=== PATIENT | male | born 1930 | race American Indian/Alaskan Native ===

== ENCOUNTER 2016-11-08 18:29 | Inpatient (IN) | payer MEDICARE, OTHER ==
--- NOTE | 2016-11-08 19:24 | ED PDOC ---
Arrival/HPI - History of Present Illness Time/Duration: 1-3 hours Symptom Onset: Sudden Symptom Course: Improving Context: Walking <Ana Cano - Last Filed: 11/08/16 21:57> <Rachel Encarnacion - Last Filed: 11/08/16 22:08> - General Chief Complaint: Weakness/Neurological Deficit Time Seen by Provider: 11/08/16 19:01 - History of Present Illness Narrative History of Present Illness (Text): 11/08/16 19:20 86 year old male with past medical history of CHF, COPD, CRF, HLD, HTN, CAd s/p CABG presents for weakness that began a few hours ago. Patient states that he was walking to get water at home when he suddenly felt his lower extremities become weak. He states that prior to coming in he felt SOB. He denies having any CP, F/C, lightheadedness, BOLANOS, recent illnesses, recent travels. Patient lives at home with his grandson and is able to ambulate without difficulty normally. Pt does complain of dysuria. (Ana Cano) Past Medical History - Provider Review Nursing Documentation Reviewed: Yes - Travel History Have you recently traveled outside [place] w/in the past 3 mons?: No - Cardiac Hx Cardiac Disorders: Yes Hx Congestive Heart Failure: Yes Hx Hypertension: Yes - Pulmonary Hx Respiratory Disorders: Yes Hx Chronic Obstructive Pulmonary Disease (COPD): Yes - Neurological Hx Neurological Disorder: Yes Hx Dementia: Yes (daughter states mild,forgetful) - HEENT Hx HEENT Disorder: No - Renal Hx Renal Disorder: Yes - Endocrine/Metabolic Hx Endocrine Disorders: No - Hematological/Oncological Hx Blood Disorders: Yes Hx Anemia: Yes Hx Blood Transfusions: Yes - Integumentary Hx Dermatological Disorder: No - Musculoskeletal/Rheumatological Hx Musculoskeletal Disorders: Yes Hx Falls: Yes - Gastrointestinal Hx Gastrointestinal Disorders: Yes Hx Gastritis: Yes - Genitourinary/Gynecological Hx Genitourinary Disorders: No - Psychiatric Hx Psychophysiologic Disorder: No Hx Substance Use: No - Surgical History Hx Coronary Artery Bypass Graft: Yes Hx Coronary Stent: Yes - Anesthesia Hx Anesthesia: Yes Hx Anesthesia Reactions: No Hx Malignant Hyperthermia: No - Suicidal Assessment Feels Threatened In Home Enviroment: No <Ana Cano - Last Filed: 11/08/16 21:57> Family/Social History - Physician Review Nursing Documentation Reviewed: Yes Family/Social History: Unknown Family HX Smoking Status: Light Smoker < 10 Cigarettes Daily Hx Alcohol Use: No Hx Substance Use: No <Ana Cano - Last Filed: 11/08/16 21:57> Allergies/Home Meds <Ana Cano - Last Filed: 11/08/16 21:57> <Rachel Encarnacion - Last Filed: 11/08/16 22:08> Allergies/Adverse Reactions: Allergies No Known Allergies Allergy (Verified 11/08/16 18:45) Home Medications: Home Meds Medication Instructions Recorded Confirmed Aspirin [Aspirin Chewable] 1 tab PO DAILY 11/08/16 11/08/16 Furosemide [Lasix] 1 tab PO DAILY 11/08/16 11/08/16 Gabapentin [Neurontin] 1 cap PO BID 11/08/16 11/08/16 Lisinopril [Zestril] 1 tab PO DAILY 11/08/16 11/08/16 Metoprolol Succinate [Toprol XL] 1 tab PO DAILY 11/08/16 11/08/16 Pantoprazole Sodium [Protonix] 1 tab PO DAILY 11/08/16 11/08/16 Sennosides/Docusate Sodium [Senna 1 tab PO BID 11/08/16 11/08/16 S Tablet] Simvastatin [Zocor] 1 tab PO HS 11/08/16 11/08/16 Review of Systems - Review of Systems Constitutional: Normal. absent: Fatigue, Fevers Eyes: Normal. absent: Vision Changes, Photophobia ENT: Normal. absent: Hearing Changes, Rhinorrhea, Sinus Congestion Respiratory: SOB. absent: Cough, Sputum, Wheezing Cardiovascular: Normal. absent: Chest Pain, Palpitations, Edema, Calf Pain, Syncope Gastrointestinal: Normal. absent: Abdominal Pain, Constipation, Diarrhea, Nausea, Vomiting, Hematochezia, Hematemesis Genitourinary Male: Dysuria. absent: Frequency, Hematuria, Urinary Output Changes Musculoskeletal: Other (lower extremity weakness ). absent: Arthralgias, Back Pain, Neck Pain Skin: Normal. absent: Rash, Pruritis, Skin Lesions, Laceration Neurological: Normal. absent: Headache, Dizziness, Focal Weakness, Gait Changes , Speech Changes, Facial Droop Endocrine: Normal. absent: Diaphoresis, Polyuria, Polydipsia Hemo/Lymphatic: Normal. absent: Adenopathy, Easy Bleeding Psychiatric: Normal. absent: Anxiety, Depression <Ana Cano - Last Filed: 11/08/16 21:57> Physical Exam Vital Signs Reviewed: Yes Temperature: Afebrile Blood Pressure: Hypertensive Pulse: Regular Respiratory Rate: Normal Appearance: Positive for: Well-Appearing, Non-Toxic, Comfortable Pain Distress: None Mental Status: Positive for: Alert and Oriented X 3 - Systems Exam Head: Present: Atraumatic, Normocephalic Pupils: Present: PERRL Extroacular Muscles: Present: EOMI Conjunctiva: Present: Normal Mouth: Present: Moist Mucous Membranes Neck: Present: Normal Range of Motion. No: MIDLINE TENDERNESS Respiratory/Chest: Present: Clear to Auscultation, Good Air Exchange, Decreased Breath Sounds. No: Respiratory Distress, Accessory Muscle Use, Wheezes, Rales, Rhonchi Cardiovascular: Present: Regular Rate and Rhythm, Normal S1, S2. No: Murmurs, Gallop Abdomen: Present: Normal Bowel Sounds. No: Tenderness, Distention, Peritoneal Signs, Rebound, Guarding Lower Extremity: Present: Normal Inspection, Edema (1+ B/L), NORMAL PULSES. No : CALF TENDERNESS, Tiffanie's Sign, Tenderness Neurological: Present: GCS=15, CN II-XII Intact, Speech Normal, Motor Func Grossly Intact, Normal Sensory Function, Memory Normal Skin: Present: Warm, Dry, Normal Color. No: Rashes Psychiatric: Present: Alert, Oriented x 3, Normal Insight, Normal Concentration <Ana Cano - Last Filed: 11/08/16 21:57> Medical Decision Making - Lab Interpretations I have reviewed the lab results: Yes - EKG Interpretation Interpreted by ED Physician: Yes Type: 12 lead EKG <Ana Cano - Last Filed: 11/08/16 21:57> <Rachel Encarnacion - Last Filed: 11/08/16 22:08> ED Course and Treatment: 11/08/16 19:37 86 year old male presents for LE weakness Will check: CBC, CMP, cardiac iso, UA, urine culture, lipase, Mg, Phos, EKG, CXR Patient is noted to have elevated blood pressure. Patient will be given hydralazine 10 mg IVP 11/08/16 21:24 Patient is noted to have elevated proBNP. Will gary Dr. Rivas to admit pt for CHF exacerbation. 11/08/16 21:[address] Rivas who accepts patient under her service. Recommends consulting pulm, Dr. Vail and cardio, Dr. Jacobson. (RachaelAna) 11/08/16 22:07 Patient with noted history; seen with resident; treatment and plan discussed and came up with it together. Based on results, agree with admission for CHF exacerbation. (Rachle Encarnacion) - Lab Interpretations Narrative Lab Interpretation (Text): 11/08/16 21:24 [place] [address] and Troponin is .09 (Ana Cano) Lab Results: 11/08/16 19:40 11/08/16 19:40 Lab Results 11/08/16 20:58: pO2 40, VBG pH 7.27 L, VBG pCO2 62.0 H, VBG HCO3 28.5 H, VBG Total CO2 30.4 H, VBG O2 Sat (Calc) 74.4 H, VBG Base Excess 0.5, VBG Potassium 3.9, Glucose 99, Lactate 1.1, FiO2 21.0, Sodium 143.0, Chloride 108.0 H, Venous Blood Potassium 3.9 11/08/16 20:58: Urine Color Yellow, Urine Appearance Clear, Urine pH 6.0, Ur Specific [place] 1.015, Urine Protein 100 H, Urine Glucose (UA) Negative, Urine Ketones Negative, Urine Blood Trace-lysed H, Urine Nitrate Negative, Urine Bilirubin Negative, Urine Urobilinogen 1.0 H, Ur Leukocyte Esterase Negative, Urine RBC 0 - 2, Urine WBC 0 - 2, Ur Epithelial Cells 0 - 2, Urine Bacteria Trace 11/08/16 19:48: Blood Type O POSITIVE, Antibody Screen Negative, BBK History Checked Patient has bt 11/08/16 19:40: NT-Pro-B Natriuret Pep 75836 H 11/08/16 19:40: Sodium 145, Potassium 4.2, Chloride 107, Carbon Dioxide 27, Anion Gap 15, BUN 44 H, Creatinine 2.5 H, Est GFR ( Amer) 30, Est GFR ( Non-Af Amer) 24, Random Glucose 103, Calcium 10.0, Phosphorus 3.6, Magnesium 2.3 H, Total Bilirubin 0.8, AST 36, ALT 40, Alkaline Phosphatase 159 H, Lactate Dehydrogenase 696, Total Creatine Kinase 205, Troponin I 0.09, Total Protein 8.3 , Albumin 4.4, Globulin 3.9, Albumin/Globulin Ratio 1.1, Lipase 172 11/08/16 19:40: WBC 4.5, RBC 3.94, Hgb 10.7 L, Hct 34.5 L, MCV 87.6, MCH 27.2, MCHC 31.0, RDW 20.3 H, Plt Count 151, MPV 10.6 - RAD Interpretation Radiology Orders: 11/08/16 19:18 CHEST PORTABLE [RAD] Stat - EKG Interpretation EKG Interpretation (Text): 11/08/16 20:58 NSR HR of 80, right bundle branch block. diffuse T wave inversions noted similar to EKG in past. (Ana Cano) - Medication Orders Current Medication Orders: Discontinued Medications Furosemide (Lasix) 40 mg IVP STAT STA Stop: 11/08/16 20:42 Last Admin: 11/08/16 21:31 Dose: 40 mg Hydralazine HCl (Apresoline) 10 mg IVP ONCE ONE Stop: 11/08/16 19:41 Last Admin: 11/08/16 20:28 Dose: 10 mg - PA / SAT INSTRUCTOR / Resident Statement / has reviewed & agrees with the documentation as recorded. / has examined the patient and agrees with the treatment plan. <Rachel Encarnacion - Last Filed: 11/08/16 22:08> Disposition/Present on Arrival - Present on Arrival Any Indicators Present on Arrival: No History of DVT/PE: No History of Uncontrolled Diabetes: No Urinary Catheter: No History of Decub. Ulcer: No History Surgical Site Infection Following: None - Disposition Have Diagnosis and Disposition been Completed?: Yes Disposition Time: 21:58 Patient Plan: Admission <Ana Cano - Last Filed: 11/08/16 21:57> <Rachel Encarnacion - Last Filed: 11/08/16 22:08> - Disposition Diagnosis: CHF (congestive heart failure), SOB (shortness of breath) Disposition: HOSPITALIZED Condition: STABLE Discharge Instructions (ExitCare): Heart Failure (ED) [facility] - Follow up with primary Forms: [employer] (Welsh)
[2016-11-08 20:04] LABS: HEMATOCRIT 34.5 % (42.0-52.0); MEAN CELL VOLUME 87.6 fl (80.0-105.0); MEAN CORPUSCULAR HEMOGLOBIN 27.2 pg (25.0-35.0); MEAN PLATELET VOLUME 10.6 fl (7.0-11.0); RED CELL DISTRIBUTION WIDTH 20.3 % (11.5-14.5); WHITE BLOOD COUNT 4.5 10^3/ul (4.5-11.0)
[2016-11-08 20:15] LABS: ALB/GLOB RATIO 1.1 (1.1-1.8); BILIRUBIN,TOTAL 0.8 mg/dL (0.2-1.3); MAGNESIUM 2.3 mg/dL (1.7-2.2); PHOSPHOROUS 3.6 mg/dL (2.5-4.5); POTASSIUM 4.2 mmol/L (3.6-5.0); TOTAL PROTEIN 8.3 g/dL (5.8-8.3)
[2016-11-08 20:23] LABS: TROPONIN I 0.09 ng/mL
[2016-11-08 21:16] LABS: VENOUS BLOOD GAS BASE EXCESS 0.5 mmol/L (0.0-2.0); VENOUS BLOOD PH 7.27 (7.32-7.43)
[2016-11-08 21:23] LABS: URINE BILIRUBIN NEGATIVE (NEGATIVE); URINE BLOOD TRACE-LYSED (NEGATIVE); URINE GLUCOSE (UA) NEGATIVE (NEGATIVE); URINE KETONE NEGATIVE (NEGATIVE); URINE LEUKOCYTE ESTERASE NEGATIVE Leu/uL (NEGATIVE); URINE PROTEIN 100 mg/dL (<30 mg/dL)
[2016-11-08 21:26] LABS: URINE APPEARANCE CLEAR (CLEAR); URINE COLOR YELLOW (YELLOW)
[2016-11-08 21:50] LABS: URINE BACTERIA TRACE (NEG); URINE EPITHELIAL CELLS 0 - 2 /hpf (0-5); URINE RBC 0 - 2 /hpf (0-2); URINE WBC 0 - 2 /hpf (0-6)
[2016-11-08 22:16] LABS: ARTERIAL BLOOD GAS HCO3 24.8 mmol/L (21-28); ARTERIAL BLOOD GAS O2 CAPACITY 14.2 mL/dl (16-24); ARTERIAL BLOOD GAS O2 CONTENT 13.7 ML/dl (15-23); ARTERIAL BLOOD GAS PH 7.39 (7.35-7.45); ARTERIAL BLOOD HGB O2 SAT 92.4 % (95.0-98.0); CARBOXYHEMOGLOBIN 3.2 % (0.5-1.5); HHB 3.4 % (0-5)
[2016-11-09 00:16] VITALS: BMI 27.8
[2016-11-09] MEDS ORDERED: Nitroglycerin 2% Ointment Foilpak UD TOP ONE (01:19)
[2016-11-09] MEDS ORDERED: Nitroglycerin 2% Ointment Foilpak UD TOP STA (01:22)
--- NOTE | 2016-11-09 01:43 | CP.PCM.PN ---
Subjective - Date & Time of Evaluation Date of Evaluation: 11/09/16 Time of Evaluation: 01:35 - Subjective Subjective: Responded to RAPID RESPONSE call promptly. Patient was confused and was hypoxic. BP 187/96,HR 74/min,RR 24/min, T:97.6*F. FSBS- 121 mg %. Pulse ox 83% on BiPAP with setting 15/5/28%. Which went upto 98% . Patient complains of sob, denies chest pain.When I asked questions about orientation, just stared and did not answer any questions. This 86 year old male was admitted weakness, sob, dysuria. Has PMH of CHF, HTN, HLD COPD, CRF,S/P CABG. Objective - Vital Signs/Intake and Output Vital Signs (last 24 hours): Temp Pulse Resp BP Pulse Ox 97.7 F 60 20 187/96 H 98 11/09/16 00:01 11/09/16 00:01 11/09/16 00:01 11/09/16 01:27 11/09/16 00:01 - Medications Medications: Home Medications Medication Instructions Recorded Confirmed Type Aspirin [Aspirin Chewable] 1 tab PO DAILY 11/08/16 11/08/16 History Furosemide [Lasix] 1 tab PO DAILY 11/08/16 11/08/16 History Gabapentin [Neurontin] 1 cap PO BID 11/08/16 11/08/16 History Lisinopril [Zestril] 1 tab PO DAILY 11/08/16 11/08/16 History Metoprolol Succinate [Toprol XL] 1 tab PO DAILY 11/08/16 11/08/16 History Pantoprazole Sodium [Protonix] 1 tab PO DAILY 11/08/16 11/08/16 History Sennosides/Docusate Sodium [Senna 1 tab PO BID 11/08/16 11/08/16 History S Tablet] Simvastatin [Zocor] 1 tab PO HS 11/08/16 11/08/16 History Vital Signs 11/08/16 11/08/16 11/08/16 18:45 19:01 19:47 Temperature 97.9 F Pulse Rate 79 91 H Pulse Rate [ Bilateral * Pedal & Posterior Tibial] Pulse Rate [ Bilateral Radial] Respiratory 17 18 20 Rate Blood Pressure 200/105 H 184/90 H 173/99 H O2 Sat by Pulse 94 L 89 L 95 Oximetry 08/23/17 08/23/17 08/23/17 20:17 20:28 21:17 Temperature Pulse Rate Pulse Rate [ Bilateral * Pedal & Posterior Tibial] Pulse Rate [ Bilateral Radial] Respiratory Rate Blood Pressure 165/104 H 165/104 H 181/86 H O2 Sat by Pulse Oximetry 11/08/16 11/08/16 11/08/16 21:31 21:41 22:53 Temperature Pulse Rate 72 62 Pulse Rate [ Bilateral * Pedal & Posterior Tibial] Pulse Rate [ Bilateral Radial] Respiratory 20 15 Rate Blood Pressure 181/96 H 168/67 H 159/79 H O2 Sat by Pulse 97 97 Oximetry 11/08/16 11/08/16 11/09/16 23:34 23:41 00:01 Temperature 97.7 F 97.7 F Pulse Rate 62 60 60 Pulse Rate [ 54 L Bilateral * Pedal & Posterior Tibial] Pulse Rate [ 54 L Bilateral Radial] Respiratory 20 20 Rate Blood Pressure 194/102 H 194/102 H O2 Sat by Pulse 98 Oximetry 11/09/16 01:27 Temperature Pulse Rate Pulse Rate [ Bilateral * Pedal & Posterior Tibial] Pulse Rate [ Bilateral Radial] Respiratory Rate Blood Pressure 187/96 H O2 Sat by Pulse Oximetry Patient Orders Lab Studies 11/08/16 11/08/16 11/08/16 Range/Units 22:13 20:58 20:58 WBC (4.5-11.0) 10^3/ul RBC (3.5-6.1) 10^6/uL Hgb (14.0-18.0) g/dL Hct (42.0-52.0) % MCV (80.0-105.0) fl MCH (25.0-35.0) pg MCHC (31.0-37.0) g/dl RDW (11.5-14.5) % Plt Count (120.0-450.0) 10^3/uL MPV (7.0-11.0) fl pCO2 41 (35-45) mm/Hg pO2 69.0 L 40 (30-55) mm/Hg HCO3 24.8 (21-28) mmol/L ABG pH 7.39 (7.35-7.45) ABG Total CO2 26.1 (22-28) mmol.L ABG O2 Saturation 96.5 (95-98) % ABG O2 Content 13.7 L (15-23) ML/dl ABG Base Excess -0.2 (-2.0-3.0) mmol/L ABG Hemoglobin 10.5 L (11.7-17.4) g/dL ABG Carboxyhemoglobin 3.2 H (0.5-1.5) % POC ABG HHb (Measured) 3.4 (0-5) % ABG Methemoglobin 1.0 (0.0-3.0) % ABG O2 Capacity 14.2 L (16-24) mL/dl VBG pH 7.27 L (7.32-7.43) VBG pCO2 62.0 H (40-60) VBG HCO3 28.5 H (21-28) mmol/l VBG Total CO2 30.4 H (22-28) mmol.L VBG O2 Sat (Calc) 74.4 H (40-65) % VBG Base Excess 0.5 (0.0-2.0) mmol/L VBG Potassium 3.9 (3.6-5.2) mmol/L Hgb O2 Saturation 92.4 L (95.0-98.0) % Glucose 99 (75-110) mg/dl Lactate 1.1 (0.7-2.1) mmol/L FiO2 28.0 21.0 % Sodium 143.0 (132-148) mmol/L Potassium (3.6-5.0) mmol/L Chloride 108.0 H (98-107) mmol/L Carbon Dioxide (21-33) mmol/L Anion Gap (10-20) BUN (7-21) mg/dL Creatinine (0.5-1.4) mg/dL Est GFR ( Amer) Est GFR (Non-Af Amer) Random Glucose (70-110) mg/dL Calcium (8.4-10.5) mg/dL Phosphorus (2.5-4.5) mg/dL Magnesium (1.7-2.2) mg/dL Total Bilirubin (0.2-1.3) mg/dL AST (15-59) U/L ALT (7-56) U/L Alkaline Phosphatase (38-133) U/L Lactate Dehydrogenase (333-699) U/L Total Creatine Kinase (35-230) U/L Troponin I ng/mL NT-Pro-B Natriuret Pep (0-450) pg/mL Total Protein (5.8-8.3) g/dL Albumin (3.0-4.8) g/dL Globulin gm/dL Albumin/Globulin Ratio (1.1-1.8) Lipase (23-300) U/L Venous Blood Potassium 3.9 (3.6-5.2) mmol/L Urine Color Yellow (YELLOW) Urine Appearance Clear (CLEAR) Urine pH 6.0 (4.7-8.0) Ur Specific [place] 1.015 (1.005-1.035) Urine Protein 100 H (<30 mg/dL) mg/dL Urine Glucose (UA) Negative (NEGATIVE) mg/dL Urine Ketones Negative (NEGATIVE) mg/dL Urine Blood Trace-lysed H (NEGATIVE) Urine Nitrate Negative (NEGATIVE) Urine Bilirubin Negative (NEGATIVE) Urine Urobilinogen 1.0 H (<1 E.U./dL) E.U./dL Ur Leukocyte Esterase Negative (NEGATIVE) [place]/uL Urine RBC 0 - 2 (0-2) /hpf Urine WBC 0 - 2 (0-6) /hpf Ur Epithelial Cells 0 - 2 (0-5) /hpf Urine Bacteria Trace (NEG) Blood Type Antibody Screen BBK History Checked 11/08/16 11/08/16 11/08/16 Range/Units 19:48 19:40 19:40 WBC (4.5-11.0) 10^3/ul RBC (3.5-6.1) 10^6/uL Hgb (14.0-18.0) g/dL Hct (42.0-52.0) % MCV (80.0-105.0) fl MCH (25.0-35.0) pg MCHC (31.0-37.0) g/dl RDW (11.5-14.5) % Plt Count (120.0-450.0) 10^3/uL MPV (7.0-11.0) fl pCO2 (35-45) mm/Hg pO2 (30-55) mm/Hg HCO3 (21-28) mmol/L ABG pH (7.35-7.45) ABG Total CO2 (22-28) mmol.L ABG O2 Saturation (95-98) % ABG O2 Content (15-23) ML/dl ABG Base Excess (-2.0-3.0) mmol/L ABG Hemoglobin (11.7-17.4) g/dL ABG Carboxyhemoglobin (0.5-1.5) % POC ABG HHb (Measured) (0-5) % ABG Methemoglobin (0.0-3.0) % ABG O2 Capacity (16-24) mL/dl VBG pH (7.32-7.43) VBG pCO2 (40-60) VBG HCO3 (21-28) mmol/l VBG Total CO2 (22-28) mmol.L VBG O2 Sat (Calc) (40-65) % VBG Base Excess (0.0-2.0) mmol/L VBG Potassium (3.6-5.2) mmol/L Hgb O2 Saturation (95.0-98.0) % Glucose (75-110) mg/dl Lactate (0.7-2.1) mmol/L FiO2 % Sodium 145 (132-148) mmol/L Potassium 4.2 (3.6-5.0) mmol/L Chloride 107 (98-107) mmol/L Carbon Dioxide 27 (21-33) mmol/L Anion Gap 15 (10-20) BUN 44 H (7-21) mg/dL Creatinine 2.5 H (0.5-1.4) mg/dL Est GFR ( Amer) 30 Est GFR (Non-Af Amer) 24 Random Glucose 103 (70-110) mg/dL Calcium 10.0 (8.4-10.5) mg/dL Phosphorus 3.6 (2.5-4.5) mg/dL Magnesium 2.3 H (1.7-2.2) mg/dL Total Bilirubin 0.8 (0.2-1.3) mg/dL AST 36 (15-59) U/L ALT 40 (7-56) U/L Alkaline Phosphatase 159 H (38-133) U/L Lactate Dehydrogenase 696 (333-699) U/L Total Creatine Kinase 205 (35-230) U/L Troponin I 0.09 ng/mL NT-Pro-B Natriuret Pep 78320 H (0-450) pg/mL Total Protein 8.3 (5.8-8.3) g/dL Albumin 4.4 (3.0-4.8) g/dL Globulin 3.9 gm/dL Albumin/Globulin Ratio 1.1 (1.1-1.8) Lipase 172 (23-300) U/L Venous Blood Potassium (3.6-5.2) mmol/L Urine Color (YELLOW) Urine Appearance (CLEAR) Urine pH (4.7-8.0) Ur Specific [place] (1.005-1.035) Urine Protein (<30 mg/dL) mg/dL Urine Glucose (UA) (NEGATIVE) mg/dL Urine Ketones (NEGATIVE) mg/dL Urine Blood (NEGATIVE) Urine Nitrate (NEGATIVE) Urine Bilirubin (NEGATIVE) Urine Urobilinogen (<1 E.U./dL) E.U./dL Ur Leukocyte Esterase (NEGATIVE) [place]/uL Urine RBC (0-2) /hpf Urine WBC (0-6) /hpf Ur Epithelial Cells (0-5) /hpf Urine Bacteria (NEG) Blood Type O POSITIVE Antibody Screen Negative BBK History Checked Patient has bt 11/08/16 Range/Units 19:40 WBC 4.5 (4.5-11.0) 10^3/ul RBC 3.94 (3.5-6.1) 10^6/uL Hgb 10.7 L (14.0-18.0) g/dL Hct 34.5 L (42.0-52.0) % MCV 87.6 (80.0-105.0) fl MCH 27.2 (25.0-35.0) pg MCHC 31.0 (31.0-37.0) g/dl RDW 20.3 H (11.5-14.5) % Plt Count 151 (120.0-450.0) 10^3/uL MPV 10.6 (7.0-11.0) fl pCO2 (35-45) mm/Hg pO2 (30-55) mm/Hg HCO3 (21-28) mmol/L ABG pH (7.35-7.45) ABG Total CO2 (22-28) mmol.L ABG O2 Saturation (95-98) % ABG O2 Content (15-23) ML/dl ABG Base Excess (-2.0-3.0) mmol/L ABG Hemoglobin (11.7-17.4) g/dL ABG Carboxyhemoglobin (0.5-1.5) % POC ABG HHb (Measured) (0-5) % ABG Methemoglobin (0.0-3.0) % ABG O2 Capacity (16-24) mL/dl VBG pH (7.32-7.43) VBG pCO2 (40-60) VBG HCO3 (21-28) mmol/l VBG Total CO2 (22-28) mmol.L VBG O2 Sat (Calc) (40-65) % VBG Base Excess (0.0-2.0) mmol/L VBG Potassium (3.6-5.2) mmol/L Hgb O2 Saturation (95.0-98.0) % Glucose (75-110) mg/dl Lactate (0.7-2.1) mmol/L FiO2 % Sodium (132-148) mmol/L Potassium (3.6-5.0) mmol/L Chloride (98-107) mmol/L Carbon Dioxide (21-33) mmol/L Anion Gap (10-20) BUN (7-21) mg/dL Creatinine (0.5-1.4) mg/dL Est GFR ( Amer) Est GFR (Non-Af Amer) Random Glucose (70-110) mg/dL Calcium (8.4-10.5) mg/dL Phosphorus (2.5-4.5) mg/dL Magnesium (1.7-2.2) mg/dL Total Bilirubin (0.2-1.3) mg/dL AST (15-59) U/L ALT (7-56) U/L Alkaline Phosphatase (38-133) U/L Lactate Dehydrogenase (333-699) U/L Total Creatine Kinase (35-230) U/L Troponin I ng/mL NT-Pro-B Natriuret Pep (0-450) pg/mL Total Protein (5.8-8.3) g/dL Albumin (3.0-4.8) g/dL Globulin gm/dL Albumin/Globulin Ratio (1.1-1.8) Lipase (23-300) U/L Venous Blood Potassium (3.6-5.2) mmol/L Urine Color (YELLOW) Urine Appearance (CLEAR) Urine pH (4.7-8.0) Ur Specific [place] (1.005-1.035) Urine Protein (<30 mg/dL) mg/dL Urine Glucose (UA) (NEGATIVE) mg/dL Urine Ketones (NEGATIVE) mg/dL Urine Blood (NEGATIVE) Urine Nitrate (NEGATIVE) Urine Bilirubin (NEGATIVE) Urine Urobilinogen (<1 E.U./dL) E.U./dL Ur Leukocyte Esterase (NEGATIVE) [place]/uL Urine RBC (0-2) /hpf Urine WBC (0-6) /hpf Ur Epithelial Cells (0-5) /hpf Urine Bacteria (NEG) Blood Type Antibody Screen BBK History Checked - Constitutional Appears: Well, No Acute Distress - Head Exam Head Exam: ATRAUMATIC, NORMAL INSPECTION, NORMOCEPHALIC - Eye Exam Eye Exam: Normal appearance - ENT Exam ENT Exam: Normal External Ear Exam - Neck Exam Neck Exam: Normal Inspection - Respiratory Exam Respiratory Exam: Rales (B/L basal.) - Cardiovascular Exam Cardiovascular Exam: REGULAR RHYTHM. absent: JVD - GI/Abdominal Exam GI & Abdominal Exam: absent: Distended - Rectal Exam Rectal Exam: Deferred - Exam Additional comments: Deferred. - Extremities Exam Extremities Exam: Normal Inspection - Back Exam Back Exam: NORMAL INSPECTION - Neurological Exam Neurological Exam: Alert, Awake - Psychiatric Exam Psychiatric exam: Normal Affect - Skin Skin Exam: Normal Color Assessment and Plan - Assessment and Plan (Free Text) Assessment: Confusion 2* to hypoxia. Tachypnea. Elevated blood pressure reading. CHF. CAD. HTN. HLD. S/P AICD. Plan: Nitro paste 1 " to ACW stat. Lasix 40 mg IV stat. EKG Stat.---> NSR, 1* block, RBBB, LAFB , New flipped t waves in V4,V5. Troponin stat.--->0.11 Observation. Allegedly as per daughter patient has mild dementia.Nurse will endorse in AM to check with if she wants to start any meds. Continue present management. Will order EKG and troponin in AM , as tropnin now is up.
--- NOTE | 2016-11-09 07:49 | RAD ---
HISTORY: weakness COMPARISON: No prior. FINDINGS: LUNGS: Questionable opacity at medial right base. This may be artifact due to oblique positioning of the patient. Follow-up advised. PLEURA: Small left pleural effusion. No evidence of right pleural effusion. CARDIOVASCULAR: CABG. AICD. No congestive change. OSSEOUS STRUCTURES: No significant abnormalities. VISUALIZED UPPER ABDOMEN: Normal. OTHER FINDINGS: None. IMPRESSION: Questionable opacity medial right lung base. Followup advised. Small left pleural effusion.
[2016-11-09] MEDS: Docusate-Senna 50 mg-8.6 mg Tab PO SCH ×2 (15:19→18:00)
[2016-11-09] MEDS: Pantoprazole 40 mg EC Tab PO SCH (15:20)
--- NOTE | 2016-11-09 15:27 | CT ---
PROCEDURE: CT HEAD WITHOUT CONTRAST. HISTORY: letHARGIC COMPARISON: None available. TECHNIQUE: Axial computed tomography images were obtained through the head/brain without intravenous contrast. Radiation dose: Total exam DLP = 801 mGy-cm. This CT exam was performed using one or more of the following dose reduction techniques: Automated exposure control, adjustment of the mA and/or kV according to patient size, and/or use of iterative reconstruction technique. FINDINGS: HEMORRHAGE: No intracranial hemorrhage. BRAIN: No mass effect or edema. 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 Chronic microvascular changes are seen in the periventricular white matter VENTRICLES: Unremarkable. No hydrocephalus. CALVARIUM: Unremarkable. PARANASAL SINUSES: Mucosal thickening in the left maxillary sinus MASTOID AIR CELLS: Unremarkable as visualized. No inflammatory changes. OTHER FINDINGS: None. IMPRESSION: No acute intracranial findings
--- NOTE | 2016-11-09 19:25 | CARD ---
APPROVED REPORT EXAM: Two-dimensional and M-mode echocardiogram with Doppler and color Doppler. INDICATION Dyspnea 2D DIMENSIONS Left Atrium (2D)5.1 (1.6-4.0cm)IVSd1.8 (0.7-1.1cm) LVDd6.2 (3.9-5.9cm)PWd1.4 (0.7-1.1cm) LVDs5.7 (2.5-4.0cm)FS (%) 9.2 % LVEF (%)19.9 (>50%) M-Mode DIMENSIONS Aortic Root3.30 (2.2-3.7cm)Aortic Cusp Exc.1.60 (1.5-2.0cm) Aortic Valve AoV Peak Hfxeuwbk896.0cm/Claudette Peak GR.7mmHg Mitral Valve MV E Frerukue948.0cm/sMV A Litlvkkp03.0cm/sE/A ratio1.5 TDI E/Lateral E'0.0E/Medial E'0.0 Tricuspid Valve TR Peak Tphvbfvw452ii/sRAP [id number] Peak Gr.14mmHg [id number] LEFT VENTRICLE The Left Ventricle is moderately dilated. There is moderate to severe concentric left ventricular hypertrophy. The systolic function is severely impaired. Akinetic inferiot wall The left ventricular apex is not well visualized. RIGHT VENTRICLE The right ventricle is moderately dilated. There is normal right ventricular wall thickness. Systolic function is moderately reduced. There is a pacemaker lead in the right ventricle. ATRIA The left atrium is moderately dilated. The right atrium is mildly dilated. AORTIC VALVE The aortic valve is mildly sclerotic. No aortic regurgitation is present. There is no aortic valvular stenosis. MITRAL VALVE The mitral valve is mildly thickened. Mitral regurgitation is mild to moderate. TRICUSPID VALVE There is no pulmonary hypertension. PULMONIC VALVE There is mild pulmonic valvular regurgitation. GREAT VESSELS The aortic root is normal in size. PERICARDIAL EFFUSION There is no pericardial effusion. <Conclusion> The Left Ventricle is moderately dilated. There is moderate to severe concentric left ventricular hypertrophy. The systolic function is severely impaired. Akinetic inferiot wall Mitral regurgitation is mild to moderate.
[2016-11-09] MEDS: Budesonide 0.5 mg/2 ml Inhal Susp UD IH SCH (19:51)
[2016-11-09] MEDS: Arformoterol 15 mcg/2 ml Inh Sol IH SCH (19:51)
--- NOTE | 2016-11-09 19:57 | CARD ---
APPROVED REPORT EKG Measurement Heart [id number] <Conclusion> Sinus bradycardia with 1st degree AV block Possible Left atrial enlargement Left axis deviation Right bundle branch block Left ventricular hypertrophy with repolarization abnormality Abnormal ECG
--- NOTE | 2016-11-09 19:59 | CARD ---
APPROVED REPORT EKG Measurement Heart [id number] <Conclusion> Sinus rhythm with 1st degree AV block Possible Left atrial enlargement Right bundle branch block Left anterior fascicular block Bifascicular block Left ventricular hypertrophy with repolarization abnormality Abnormal ECG
[2016-11-09] MEDS: Milrinone 20mg/100ml D5W 100 ML IV PRN (21:07)
[2016-11-09] MEDS: MethylPREDNISolone 40 mg Vial IVP SCH (21:30)
--- NOTE | 2016-11-10 04:03 | CON ---
DATE: 11/09/2016 PULMONARY CONSULT REFERRING PHYSICIAN: Irasema Rivas MD REASON FOR CONSULT: Exacerbation of chronic obstructive lung disease, cough and shortness of breath. HISTORY OF PRESENT ILLNESS: This is an 86-year-old gentleman with known history of cardiomyopathy, history of coronary artery bypass surgery, history of I believe has an AICD, chronic obstructive lung disease, renal insufficiency, hyperlipidemia, hypertension, who came into emergency room with lower extremity weakness, short of breath, cough, sputum production. No hemoptysis or emesis. No hematuria. Does have some leg swelling. PAST MEDICAL HISTORY: Chronic obstructive lung disease, cardiomyopathy with AICD and coronary artery disease with coronary bypass surgery in the remote past, hypertension, hyperlipidemia. Past medical history as per history of present illness and also has a history of dementia, anemia, history of blood transfusion in the past and history of gastritis. FAMILY HISTORY: Not significant cardiopulmonary disease reported. SOCIAL HISTORY: Active smoker. Denied any alcohol use. ALLERGIES: NONE KNOWN. MEDICATIONS: Ecotrin 81 mg daily, Lasix 40 mg daily, Lipitor 10 mg daily, metoprolol tartrate 12.5 mg twice a day, Neurontin 100 mg twice a day, Nicoderm patch 40 mg started, Protonix 40 mg daily and Senokot 1 tab twice a day. PHYSICAL EXAMINATION: HEENT: Moist mucous membrane. Crowded airway. Mallampati score is IV. NECK: Supple. No JVD. HEART: S1 and S2. LUNGS: Poor airflow with expiratory wheezing. ABDOMEN: Soft and nontender. No organomegaly. EXTREMITIES: There is some ankle edema. NEUROLOGICAL: Awake and alert. Follow simple command. LABORATORY DATA: Shows hemoglobin 10.7, hematocrit 34.5, WBC 4.5 and platelet is 151. ABG show pH of 7.39, pCO2 of 41, O2 of 69 that is on nasal cannula. Sodium is 145, potassium 4.2, chloride 107, bicarbonate 27, BUN 44, creatinine 2.5, glucose 103, calcium 10.0, phosphorus 10.6, magnesium 2.3, AST 36, ALT 40, alk phos is 159, troponin 0.01, subsequent troponin negative. ProBNP is 55,900. Albumin is 4.4. Has a CAT scan of the head done, which shows no acute intracranial finding. Also echocardiogram done, report is pending. Chest x-ray done shows opacity medial right lung base could be small pleural effusion. IMPRESSION AND PLAN: Chronic obstructive lung disease rule out pneumonia, cardiomyopathy, history of coronary artery disease, hypertension, hyperlipidemia, active smoker. Case discussed with nursing staff. We will add IV and inhaled bronchodilator, antibiotic. Get CAT scan of the chest to evaluate the lung parenchyma. Echocardiogram is done, report is pending. Renal insufficiency, avoid renal toxic drugs. Gastric prophylaxis. SCD to lower extremities. We will get followup labs. Need outpatient PFT. Obstructive sleep apnea syndrome has a loud snoring, daytime sleepy and tired. Thank you and we will follow with you. Radha Vail MD
[2016-11-10] MEDS: MethylPREDNISolone 40 mg Vial IVP SCH ×3 (06:21→21:44)
--- NOTE | 2016-11-10 06:39 | HP ---
CHIEF COMPLAINT: Weakness and neurological deficit. HISTORY OF PRESENT ILLNESS: Mr. Faraz Zuñiga is an 86-year-old male with past medical history of congestive heart failure, COPD, chronic renal failure, hyperlipidemia, hypertension, coronary artery disease, CABG, who came to the emergency room with weakness that began a few hours ago. According to him he was walking to get water at home when he suddenly felt his lower extremity became weak. He states that prior to coming in he felt shortness of breath. Denies chest pain or lightheadedness. Denies any recent illness or trouble. The patient lives at home with grandson and is able to ambulate without difficulty, normally is his baseline. No dysuria. PAST MEDICAL HISTORY: Congestive heart failure, hypertension, COPD, dementia, seizure disorder, anemia, blood transfusion, falls, gastritis, coronary artery disease, and history of coronary artery bypass graft. FAMILY HISTORY: Father and mother noncontributory. HABITS: [employer] Development [employer] smoker, less than 10 cigarettes per day, alcohol no, substance abuse no. ALLERGIES: THE PATIENT IS NOT ALLERGIC TO ANY MEDICATIONS. HOME MEDICATIONS: Aspirin, Lasix, Neurontin, Zestril, Toprol, Protonix, and Zocor. REVIEW OF SYSTEMS: The patient is seen and examined at the bedside in the telemetry. Looking comfortable. No nausea, vomiting, or diarrhea. No hematuria or hematochezia. No swelling of the legs. No chest pain or palpitation. PHYSICAL EXAMINATION: VITAL SIGNS: Temperature 98.6, pulse 71, blood pressure 155/71, and respiratory rate 18. HEENT: Head normocephalic and atraumatic. Eyes PERRLA. Extraocular movements intact. Conjunctivae clear. Nose patent. Mucous membrane moist. NECK: Supple. No carotid bruit or thyromegaly. CHEST: Bilaterally symmetrical. HEART: S1 and S2 positive. LUNGS: Clear to auscultation. ABDOMEN: Soft. Bowel sounds present. No organomegaly. EXTREMITIES: No edema. No cyanosis. NEUROLOGIC: The patient is awake and alert. Moving all 4 extremities. No focal deficit. LABORATORY DATA: White blood cell 4.5, hemoglobin 10.7, hematocrit 34.5, and platelets 151. Sodium 145, potassium 4.2, BUN 44, creatinine 2.5, glucose 101, magnesium 2.3, and alkaline phosphatase 159. BNP 25,900. ASSESSMENT AND PLAN: Mr. Faraz Zuñiga is an 86 years old male with anemia, renal insufficiency, hypermagnesemia, colon cancer, congestive heart failure, proteinuria, and hematuria. CAT scan of the head is done and reviewed by me. Had rapid response today handled by Dr. Mahmood due to shortness of breath, history of coronary artery disease, dementia, chronic obstructive pulmonary disease, and asthma. He is admitted. Pulmonary and Neurology consult called. GI and DVT prophylaxis. Repeat labs. Review Dr. Mahmood notes and ER notes. Discussion done with the patient, nursing staff, and social workers. Irasema Rivas MD
[2016-11-10] MEDS: Budesonide 0.5 mg/2 ml Inhal Susp UD IH SCH ×2 (07:25→20:01)
[2016-11-10] MEDS: Arformoterol 15 mcg/2 ml Inh Sol IH SCH ×2 (07:25→20:01)
--- NOTE | 2016-11-10 08:17 | CON ---
DATE: 11/09/2016 LOCATION: The patient's room #263 and bed 2. REASON FOR CONSULTATION: Coronary artery disease, history of CHF, hypertension, and history of AICD insertion. HISTORY OF PRESENT ILLNESS: This is an 86-year-old -[place] male admitted with a history that he felt very weak, especially the lower extremities. He also had episode of shortness of breath. He denied any chest pain or palpitation. The patient denied any syncope. The patient is known to have CHF, COPD, chronic renal failure, hyperlipidemia. hypertension, coronary artery disease status post CABG. PAST MEDICAL HISTORY: Positive for CHF, cardiomyopathy, hypertension, chronic renal failure, GI bleeding, anemia, AICD insertion, coronary artery disease status post CABG. The patient according to the family is mildly forgetful. Has a history of gastritis, hyperlipidemia. PERSONAL HISTORY: He smokes less than 10 cigarettes a day, denied drinking. ALLERGIES: HE DENIES ANY ALLERGIES. MEDICATIONS AT HOME: Consisted of Lasix, aspirin, Zocor, lisinopril, Toprol XL, Neurontin. REVIEW OF SYSTEMS: All the systems reviewed, positive mentioned in history and others are negative. PHYSICAL EXAMINATION VITAL SIGNS: Blood pressure 147/78, respirations 19, pulse 70, and temperature 98. HEENT: Head is normocephalic. Eyes: Pupils normal and conjunctivae slightly pale. NECK: JVP low. Carotids equal. Thorax, AP diameter normal. LUNGS: Few basal rales. CARDIOVASCULAR: S1 and S2. ABDOMEN: Soft and nontender. No organomegaly. EXTREMITIES: No clubbing. No cyanosis. Does not have an edema at present. LABORATORY DATA: WBC 4.5, hemoglobin 10.7, hematocrit 34.5, and platelet 151. Sodium 145, potassium 4.2, BUN 44, creatinine 2.5, sugar 103, magnesium 2.3, phosphorus 3.6, and calcium 10.0. Troponin is negative. NT-pro-B natriuretic peptide 25,900. Glucose 101. Chest x-ray shows cardiomegaly, mild vascular congestion seen. EKG showed regular sinus rhythm, HI prolonged, left anterior hemiblock, RBBB pattern, ST-T changes. DIAGNOSES: Congestive heart failure, chronic obstructive pulmonary disease, cardiomyopathy, coronary artery disease status post coronary artery bypass graft, anemia, automatic implantable cardioverter-defibrillator insertion, gastrointestinal bleeding, chronic renal failure, mildly forgetful, hyperlipidemia, tobacco abuse, hypertension, and chronic renal disease. PLAN: The patient is getting Doryx 100 mg p.o. q. 12 hours, aspirin 81 mg daily, Lasix 40 IV daily, Lipitor 10 mg daily, metoprolol 12.5 mg b.i.d., Neurontin 100 mg b.i.d., Protonix 40 mg daily, and Solu-Medrol 40 mg IV q. 8 hours. We will add to therapy milrinone drip, and we will start lisinopril 5 mg daily. The patient's cardiac workup, stress test on 11/07/2016, showed ischemia with ejection fraction of 34%, which was decreasing as compared to before which was 39%. Echo on 11/08/2016, showed moderate LVH, normal LV systolic function, 60% to 65% LV ejection fraction, akinesis, basal inferior wall grade 1 diastolic dysfunction, mild mitral regurgitation, mild pulmonary hypertension with RVSP 38 mmHg. Repeat echo was done today on 11/09/2016, which showed dilated LV with LV ejection fraction of 20%, LV markedly dilated, [id number] LVH, akinetic inferior wall, alhh-wj-hlwxlmap MR, RVSP 24 mmHg, dilated right ventricle, and right ventricular systolic function also markedly decreased, and mild pulmonic regurgitation. We will follow closely. Radha Jacobson MD
[2016-11-10 10:37] LABS: BASO # 0.01 K/mm3 (0.0-2.0); BASO % 0.3 % (0.0-3.0); GRAN # 3.47 (1.4-6.5); HEMATOCRIT 30.6 % (42.0-52.0); LYMPH # 0.4 (1.2-3.4); LYMPH % 9.4 % (22.0-35.0); MEAN CELL VOLUME 88.7 fl (80.0-105.0); MEAN CORPUSCULAR HEMOGLOBIN 27.2 pg (25.0-35.0); MEAN CORPUSCULAR HGB CONC 30.7 g/dl (31.0-37.0); MEAN PLATELET VOLUME 10.3 fl (7.0-11.0); MONO % 0.3 % (1.0-6.0); WHITE BLOOD COUNT 3.9 10^3/ul (4.5-11.0)
[2016-11-10 10:47] LABS: ALB/GLOB RATIO 1.1 (1.1-1.8); BILIRUBIN,TOTAL 0.5 mg/dL (0.2-1.3); CALCIUM 9.4 mg/dL (8.4-10.5); MAGNESIUM 2.2 mg/dL (1.7-2.2); POTASSIUM 4.3 mmol/L (3.6-5.0); TOTAL PROTEIN 6.7 g/dL (5.8-8.3)
[2016-11-10 10:53] LABS: IRON 24 ug/dL (45-180)
[2016-11-10 10:58] LABS: TROPONIN I 0.08 ng/mL
[2016-11-10 11:16] LABS: THYROID STIMULATING HORMONE 5.96 mIU/mL (0.46-4.68)
[2016-11-10] MEDS: Docusate-Senna 50 mg-8.6 mg Tab PO SCH ×2 (11:16→17:41)
[2016-11-10] MEDS: Pantoprazole 40 mg EC Tab PO SCH (11:16)
--- NOTE | 2016-11-10 11:30 | PQF RENAL ---
This form is a permanent part of the medical record Dr. Rivas, Your documentation notes CRF and renal insufficiency. BUN/creatinine elevated on admission (45/2.5). Please specify the stage of CKD present in this patient. Clarification of your documentation is requested to better reflect the severity of illness and intensity of treatment of your patient. Indicators present [] Oliguria/anuria [] Edema/weight gain [] Hyponatremia [] Confusion/mental status changes [] Increased Blood Urea Nitrogen/Creatinine [] Increased Potassium/Decreased potassium [] Anemia (male <13.5, female <12.0) [] Proteinuria [] Metabolic Acidosis OR Alkalosis [] Hypotension/shock [] Decreased GFR [] Other: [] Location in the medical record that reflects the above clinical findings: PHYSICIAN'S RESPONSE Based on your medical judgment of the clinical indicators outlined above, are you treating this patient for a known or suspected: [] Acute Renal Failure [] Acute Kidney Injury [] Azotemia/prerenal azotemia [] Chronic kidney disease Stage I [] Stage II [] Stage III [] Stage IV [] [] Other condition/diagnosis:[] [] If Unable to Determine, please check the box, sign and date. Present On Admission (POA) Indicator: [] Present at the time of admission [] Not present at the time of admission [] Clinically Undetermined In responding to this query, please exercise your independent professional judgment. The fact that a question is asked does not imply that any particular answer is desired or expected. Thank you for your clarification on this documentation. If you have any questions please call:[ ] * Thank you, [ ]Naomi Uribe, [facility] #[id number] boarding house cook Chronic Kidney Disease Stages *[employer]* Stage I GFR >90 Stage II GFR 60-89 Stage III GFR 30-59 Stage IV GFR 15-29 Stage V~~~~~~~~~~ GFR <15~~~~~~~~~~~~~ MTDD
[2016-11-10] MEDS: Milrinone 20mg/100ml D5W 100 ML IV PRN (14:01)
--- NOTE | 2016-11-10 14:02 | CT ---
PROCEDURE: CT Chest without contrast HISTORY: infiltrate COMPARISON: None. TECHNIQUE: Contiguous axial images were obtained through the chest without intravenous contrast enhancement. Sagittal and coronal reconstructions were performed. Radiation dose (DLP): 577 mGy-cm. This CT exam was performed using one or more of the following dose reduction techniques: Automated exposure control, adjustment of the mA and/or kV according to patient size, and/or use of iterative reconstruction technique. FINDINGS: LUNGS: Clear lungs. Visualized airway clear. MEDIASTINUM: The aorta is calcified and mildly enlarged coronary artery calcifications. Cardiomegaly. Main pulmonary artery unremarkable. No vascular congestion. No lymphadenopathy. PLEURA: Small bilateral pleural effusions are seen left greater than right. There is some atelectasis in consolidation at the left lung base BONES: No fracture. No destructive lesion. UPPER ABDOMEN: Grossly unremarkable. OTHER FINDINGS: None. IMPRESSION: Small bilateral pleural effusions. Atelectasis at the left lung base.
--- NOTE | 2016-11-10 16:18 | CP.PCM.PN ---
Subjective - Date & Time of Evaluation Date of Evaluation: 11/10/16 Time of Evaluation: 15:00 - Subjective Subjective: Patient has very poor veins,needs iv access. Objective - Vital Signs/Intake and Output Vital Signs (last 24 hours): Temp Pulse Resp BP Pulse Ox 98.3 F 76 20 151/51 H 95 11/10/16 11:57 11/10/16 11:57 11/10/16 11:57 11/10/16 11:57 11/10/16 06:00 Intake and Output: 11/10/16 11/10/16 06:59 18:59 Intake Total 404 100 Output Total 200 Balance 204 100 - Medications Medications: Current Medications Arformoterol Tartrate (Brovana) 15 mcg IH [id number] [facility] Last Admin: 11/10/16 07:25 Dose: 15 mcg Aspirin (Ecotrin) 81 mg PO DAILY [facility] Last Admin: 11/10/16 11:16 Dose: 81 mg Atorvastatin Calcium (Lipitor) 10 mg PO DIN [facility] Last Admin: 11/09/16 17:58 Dose: 10 mg Budesonide (Pulmicort Respules) 0.5 mg IH [id number] [facility] Last Admin: 11/10/16 07:25 Dose: 0.5 mg Doxycycline Hyclate (Doryx) 100 mg PO Q12 [facility] PRN Reason: Protocol Last Admin: 11/10/16 11:16 Dose: 100 mg Furosemide (Lasix) 40 mg IVP DAILY [facility] Last Admin: 11/10/16 11:18 Dose: 40 mg Gabapentin (Neurontin) 100 mg PO BID [facility] PRN Reason: Protocol Last Admin: 11/10/16 11:17 Dose: 100 mg Milrinone Lactate/Dextrose (Primacor 20mg/100ml D5w) 100 mls @ 4.79 mls/hr IV .[id number] PRN; Protocol; 0.2 MCG/KG/MIN PRN Reason: TITRATE PER MD ORDER Last Admin: 11/10/16 14:01 Dose: 0.2 mcg/kg/min, 4.79 mls/hr Iron Sucrose 100 mg/ Sodium (Chloride) 105 mls @ 210 mls/hr IVPB DAILY [facility] Stop: 11/13/16 10:29 Lisinopril (Zestril) 5 mg PO DAILY [facility] Last Admin: 11/10/16 11:17 Dose: 5 mg Methylprednisolone (Solu-Medrol) 40 mg IVP Q8 [facility] Last Admin: 11/10/16 14:06 Dose: 40 mg Metoprolol Tartrate (Lopressor) 12.5 mg PO BRKDIN [facility] Last Admin: 11/10/16 08:46 Dose: 12.5 mg Nicotine (Nicoderm Cq) 1 patch TD DAILY [facility] Last Admin: 11/10/16 11:15 Dose: 1 patch Pantoprazole Sodium (Protonix Ec Tab) 40 mg PO DAILY [facility] Last Admin: 11/10/16 11:16 Dose: 40 mg Senna/Docusate Sodium (Senokot S 50 Mg-8.6 Mg) 1 tab PO BID [facility] Last Admin: 11/10/16 11:16 Dose: 1 tab - Labs Labs: 11/10/16 09:13 11/10/16 10:30 - Constitutional Appears: No Acute Distress Assessment and Plan - Assessment and Plan (Free Text) Assessment: Poor venous access. Plan: Hep lock inserted in the R hand. # 24 angiocath used.
[2016-11-10 16:39] LABS: TRANSFERRIN 262.41 mg/dL (206-381)
[2016-11-10 17:34] LABS: FOLATE 14.4 ng/mL
--- NOTE | 2016-11-10 19:47 | PN ---
DATE: 11/10/2016 LOCATION: The patient is in room 260, bed 2. REASON FOR CONSULTATION: Followup coronary artery disease, history of CHF, hypertension, history of AICD insertion. SUBJECTIVE: The patient states that he is feeling weak in the leg, but denies any chest pain, shortness of breath or palpitation. PHYSICAL EXAMINATION: VITAL SIGNS: Blood pressure 151/51, respirations 20, pulse 76 and temperature 98.3. HEENT: Head is normocephalic. Eyes; pupils normal. Conjunctivae slightly pale. NECK: JVP low. Carotid equal. Thorax, AP diameter normal. CARDIOPULMONARY: S1 and S2, systolic murmur. No rub. LUNGS: No significant rales. ABDOMEN: Soft and nontender. No organomegaly. EXTREMITIES: No clubbing or cyanosis. LABORATORY DATA: WBC 3.9, hemoglobin 9.4, hematocrit 30.6 and platelet 129. Sodium 143, potassium 4.3, BUN 45, creatinine 2.3, glucose 271, calcium 9.4, magnesium 2.2. NT-pro-B natriuretic peptide 15,400. Protein and albumin normal. Troponin is negative. The patient's previous cardiac workup showed that the patient has stress test 11/07/2016, which showed ischemic changes with ejection fraction of 34%, which was decreasing as compared to before which was 39%. Echo on 11/08/2016, showed moderate LVH, normal LV systolic function with ejection fraction of 60%-65%, basal inferior wall akinesis, grade 1 diastolic dysfunction, mild mitral regurgitation, mild pulmonary hypertension with RVSP 38 mmHg. Repeat echo was done today on 11/09/2016, which showed dilated LV with LV ejection fraction of 20%, LV markedly dilated, hqzhfudz-am-exfvyx LVH, akinetic inferior wall, qzjh-mf-hqfzdfrp MR, RVSP 24 mmHg, dilated right ventricle, and right ventricular systolic function also markedly decreased and mild pulmonic regurgitation. DIAGNOSES: Congestive heart failure; chronic obstructive pulmonary disease; cardiomyopathy; coronary artery disease, status post coronary artery bypass graft surgery; anemia; automatic implantable cardioverter-defibrillator insertion; gastrointestinal bleeding; chronic renal failure; mildly forgetful; hyperlipidemia; tobacco abuse; hypertension and chronic renal disease. PLAN: The patient was started yesterday on milrinone drip. The patient also getting Doryx 100 mg p.o. q. 12 hours, aspirin 81 mg daily, Venofer 200 mg IV was given and now the patient getting 100 mg IV daily, furosemide 40 IV daily, Lipitor 10 mg p.o. daily, metoprolol 12.5 mg b.i.d., Neurontin 100 mg b.i.d., Protonix 40 daily, Solu-Medrol 40 mg IV q. 8 hours, lisinopril 5 mg daily. Hence BUN and creatinine elevated, will add hydralazine for high blood pressure and monitored the patient and we will follow with you. Radha Jacobson MD
--- NOTE | 2016-11-10 22:11 | PN ---
DATE: 11/10/2016 SUBJECTIVE: The patient was seen and examined at the bedside, looking comfortable. No nausea, vomiting, or diarrhea. Having DuoNeb. No hematuria, no hematochezia. PHYSICAL EXAMINATION: GENERAL: Alert. VITAL SIGNS: Temperature 98,3, pulse 67, blood pressure 158/70, respiratory rate 20. HEENT: Head; normocephalic and atraumatic. Eyes; PERRLA. Extraocular muscles intact. Conjunctiva clear. Nose patent. Mucous membranes moist. NECK: Supple. No carotid bruits. No JVD or thyromegaly. CHEST: Bilaterally symmetrical. HEART: S1 and S2 positive. LUNGS: Clear to auscultation. ABDOMEN: Soft. Bowel sounds positive. No organomegaly. EXTREMITIES: No edema, no cyanosis. NEUROLOGICAL: The patient is awake and alert, moving all 4 extremities. No focal deficit. MEDICATIONS: Hydralazine, Brovana, doxycycline, Ecotrin, iron sucrose, Lasix, DuoNeb, Lipitor, Lopressor, Neurontin, Nicoderm, Primacor drip, Protonix, Pulmicort, Zestril, Solu-Medrol. LABORATORY DATA: White blood cell is 3.9, hemoglobin 9.4, hematocrit 30.6, platelets 129. Sodium 143, potassium 4.3, BUN 45, creatinine 2.6, glucose 271, iron 24, iron saturation 7%. BNP 1540. TSH 5.69. ASSESSMENT AND PLAN: Mr. Faraz Zuñiga is an 86-year-old male with renal insufficiency, hyperglycemia, iron deficiency anemia, congestive heart failure, hypothyroidism, leukopenia, anemia, proteinuria, hematuria, urobilinogen positive, seen by Dr. Lior Vaughn for putting an intravenous line. CAT scan of the chest and head was done and reviewed by me. These show chronic lung disease, cardiomyopathy, automatic implantable cardioverter-defibrillator, coronary artery disease with coronary bypass surgery in the remote past, hypertension, hypercholesteremia, history of dementia, history of blood transfusion and gastritis as per patient, rule out pneumonia, getting antibiotics. Echocardiography done, reports are pending. Sequential compression device to the lower extremities. Pulmonary function test as an outpatient. Obstructive sleep apnea symptoms. Gastrointestinal and deep venous thrombosis prophylaxis. Repeat labs. Irasema Rivas MD [facility] # [id number]
--- NOTE | 2016-11-10 23:06 | PN ---
DATE: 11/10/2016 PULMONARY PROGRESS NOTE REFERRING PHYSICIAN: Dr. Rivas. SUBJECTIVE: The patient is out of bed to chair. Night was unremarkable. Feels little better. Still have cough, shortness of breath, wheezing. No nausea, no vomiting, no diarrhea. Still have ankle swelling. OBJECTIVELY: GENERAL: No acute distress. VITAL SIGNS: Temperature is 98, heart rate is 87, respiratory rate is 20, blood pressure 158/70, and pulse ox is 95% on BiPAP this morning. HEENT: Moist mucous membranes. Crowded airway. NECK: Supple. No JVD. LUNGS: Has a bilateral wheezing and prolonged expiratory phase. HEART: S1 and S2. ABDOMEN: Soft and nontender. No organomegaly. EXTREMITIES: There is ankle edema. NEUROLOGIC: Awake and alert. Follows simple commands. MEDICATIONS: Hydralazine 10 mg 3 times a day, Brovana 15 mcg inhale twice a day, doxycycline 100 mg twice day, Ecotrin 81 mg daily, iron sucrose 100 mg daily, Lasix 40 mg daily, Lipitor 10 mg daily, metoprolol tartrate 12.5 mg twice a day, Neurontin 100 mg twice a day, Nicoderm patch daily, Primacor IV drip, Protonix 40 mg daily, Pulmicort inhale twice a day, Solu-Medrol 40 mg q. 8 hours, Zestril 5 mg daily. LABORATORY DATA: Shows hemoglobin 9.4, hematocrit 30.6, WBC 3.9, platelet count is 129. Sodium 143, potassium 4.3, chloride 106, bicarbonate 27, BUN 45, creatinine 2.3, glucose 271, calcium 9.4, phosphorus 2.2, iron 24, ferritin is 20, C-reactive protein 5.49, ProBNP 15,400. TSH is 5.96. Microbiology: Urine culture, there is no growth. CAT scan of the head is done which show somewhat bilateral pleural effusion, atelectasis at the left lung base. Had echocardiogram done today, which showed vycijsgh-[id number]-[id number] concentric left ventricular hypertrophy, systolic function is severely impaired, right ventricular systolic pressure is 24. IMPRESSION AND PLAN: Chronic obstructive lung disease, possible small effusion; cardiomyopathy with diastolic and systolic dysfunction, coronary artery disease, hypertension, hyperlipidemia, active smoker. The patient started on antibiotics, IV inhaler, bronchodilators, gastric prophylaxis, SCD to lower extremity. Being follow by cardiology. Radha Vail MD [facility] # [id number]
[2016-11-11] MEDS: MethylPREDNISolone 40 mg Vial IVP SCH ×3 (05:09→23:35)
[2016-11-11] MEDS: Budesonide 0.5 mg/2 ml Inhal Susp UD IH SCH ×2 (07:20→19:25)
[2016-11-11] MEDS: Arformoterol 15 mcg/2 ml Inh Sol IH SCH ×2 (07:20→19:25)
[2016-11-11] MEDS: Docusate-Senna 50 mg-8.6 mg Tab PO SCH ×2 (10:42→18:19)
[2016-11-11] MEDS: Pantoprazole 40 mg EC Tab PO SCH (10:47)
[2016-11-11] MEDS: Milrinone 20mg/100ml D5W 100 ML IV PRN (11:39)
--- NOTE | 2016-11-11 15:44 | PN ---
DATE: 11/11/2016 SUBJECTIVE: The patient stated that he has no chest pain, shortness of breath, or palpitation. He says that he was admitted with weakness and weakness is also improving now. PHYSICAL EXAMINATION: VITAL SIGNS: Blood pressure 188/66, respirations 20, pulse 76, and the patient is afebrile. HEENT: Head is normocephalic. Eyes; pupils normal. Conjunctivae slightly pale. NECK: JVP low. Carotid equal. Thorax, AP diameter normal. LUNGS: Clear. CARDIOVASCULAR: S1 and S2, systolic murmur. No rub. ABDOMEN: Soft and nontender. No organomegaly. EXTREMITIES: No clubbing or cyanosis. DATA: Labs were done yesterday . The patient had a previous cardiac workup showed the patient had stress test on 11/07/2016, which showed ischemic changes with ejection fraction of 34%, which was decreasing as compared to before, which was 39%. Echocardiogram from 11/08/2016 showed dilated LV with LV ejection fraction of 20%, markedly dilated LV, [id number] LVH, akinetic inferior wall, [id number] MR, RVSP 24 mmHg, dilated right ventricle, and right ventricular systolic function also markedly decreased and mild pulmonic regurgitation. DIAGNOSES: Hypertension and anemia. PLAN: Yesterday I started the patient on hydralazine 10 mg t.i.d., blood pressure still elevated, so we increased today to 25 t.i.d. In the meantime, the patient is also getting furosemide 40 IV daily, atorvastatin 10 mg, metoprolol tartrate 12.5 mg b.i.d., Neurontin 100 mg b.i.d. The patient is on milrinone drip, Protonix 40 daily, Solu-Medrol 40 mg IV q.8 hours, and lisinopril 5 mg p.o. daily. We will continue to follow with you. Radha Jacobson MD
--- NOTE | 2016-11-11 18:58 | PN ---
DATE: 11/11/2016 SUBJECTIVE: The patient is out of bed to chair, feels better. Decreased cough, decreased short of breath. No nausea or vomiting. No diarrhea. Decreased leg swelling. OBJECTIVE: GENERAL: No acute distress. VITAL SIGNS: Temperature is 98, heart is 73, respiratory rate is 20, blood pressure is 145/53, pulse is 98% on 2 liters nasal cannula. HEENT: Moist mucous membrane. Crowded airway. Mallampati score is IV. NECK: Supple. No JVD. LUNGS: Has a few crackles at bases, prolonged expiratory phase and wheezing. HEART: S1 and S2. ABDOMEN: Soft, nontender. No organomegaly. EXTREMITIES: Trace edema of the ankle. NEUROLOGIC: Awake and alert. Follows simple commands. MEDICATIONS: Hydralazine 25 mg 3 times a day, Brovana inhaler twice a day, doxycycline 100 mg twice a day, Ecotrin 81 mg daily, IV iron sucrose daily, Lasix 40 mg daily, Lipitor 10 mg, metoprolol tartarate 12.5 mg twice a day, Neurontin 100 mg twice a day, Nicoderm patch daily, Primacor IV drip, Protonix 40 mg daily, Pulmicort inhaler twice a day, Solu-Medrol 40 mg every 8 hours, Zestril 5 mg daily. LABORATORY DATA: Reviewed, no new lab is available since yesterday. Microbiology reviewed and culture is no growth. IMPRESSION AND PLAN: Chronic obstructive lung disease, small effusion, cardiomyopathy, diastolic and systolic dysfunction, coronary artery disease, hypertension, hyperlipidemia, active smoker, iron deficiency anemia. PLAN: We will decrease Solu-Medrol, add iron supplement. Send stool guaiac need to rule out GI losses of blood. Thank you, we will follow with you. Radha Vail MD
--- NOTE | 2016-11-11 20:07 | CP.PCM.PN ---
Subjective - Date & Time of Evaluation Date of Evaluation: 11/11/16 Time of Evaluation: 19:54 - Subjective Subjective: Patient was seen because he is confused , trying to get out of bed. States that this October and year is 1971. Gets upset on my asking him questions and in turn questions me the same question I ask him. [place] having chest pain, sob. ROS:Negative except as mentioned above. Medical record was reviewed. Pulse ox is 93% 86 year old male was admitted sob,weakness, dysuria. PMH of COPD,CHF, HTN, HLD CRF,anemia,S/P CABG. Objective - Vital Signs/Intake and Output Vital Signs (last 24 hours): Temp Pulse Resp BP Pulse Ox 98 F 75 20 165/88 H 98 11/11/16 16:34 11/11/16 18:18 11/11/16 16:34 11/11/16 18:18 11/11/16 06:00 Intake and Output: 11/11/16 11/12/16 18:59 06:59 Intake Total 100 Balance 100 - Medications Medications: Current Medications Arformoterol Tartrate (Brovana) 15 mcg IH [id number] [facility] Last Admin: 11/11/16 19:25 Dose: 15 mcg Aspirin (Ecotrin) 81 mg PO DAILY [facility] Last Admin: 11/11/16 10:43 Dose: 81 mg Atorvastatin Calcium (Lipitor) 10 mg PO DIN [facility] Last Admin: 11/11/16 18:18 Dose: 10 mg Budesonide (Pulmicort Respules) 0.5 mg IH [id number] [facility] Last Admin: 11/11/16 19:25 Dose: 0.5 mg Doxycycline Hyclate (Doryx) 100 mg PO Q12 [facility] PRN Reason: Protocol Last Admin: 11/11/16 10:43 Dose: 100 mg Furosemide (Lasix) 40 mg IVP DAILY [facility] Last Admin: 11/11/16 10:47 Dose: 40 mg Gabapentin (Neurontin) 100 mg PO BID [facility] PRN Reason: Protocol Last Admin: 11/11/16 18:18 Dose: 100 mg Hydralazine HCl (Apresoline) 25 mg PO TID [facility] Last Admin: 11/11/16 18:18 Dose: 25 mg Milrinone Lactate/Dextrose (Primacor 20mg/100ml D5w) 100 mls @ 4.79 mls/hr IV .[id number] PRN; Protocol; 0.2 MCG/KG/MIN PRN Reason: TITRATE PER MD ORDER Last Admin: 11/11/16 11:39 Dose: 0.2 mcg/kg/min, 4.79 mls/hr Iron Sucrose 100 mg/ Sodium (Chloride) 105 mls @ 210 mls/hr IVPB DAILY [facility] Stop: 11/13/16 10:29 Last Admin: 11/11/16 10:48 Dose: 210 mls/hr Lisinopril (Zestril) 5 mg PO DAILY [facility] Last Admin: 11/11/16 10:43 Dose: 5 mg Methylprednisolone (Solu-Medrol) 20 mg IVP Q8 [facility] Metoprolol Tartrate (Lopressor) 12.5 mg PO BRKDIN [facility] Last Admin: 11/11/16 18:17 Dose: 12.5 mg Nicotine (Nicoderm Cq) 1 patch TD DAILY [facility] Last Admin: 11/11/16 10:48 Dose: 1 patch Pantoprazole Sodium (Protonix Ec Tab) 40 mg PO DAILY [facility] Last Admin: 11/11/16 10:47 Dose: 40 mg Senna/Docusate Sodium (Senokot S 50 Mg-8.6 Mg) 1 tab PO BID [facility] Last Admin: 11/11/16 18:19 Dose: Not Given - Labs Labs: 11/10/16 09:13 11/10/16 10:30 - Constitutional Appears: No Acute Distress - Head Exam Head Exam: ATRAUMATIC, NORMAL INSPECTION, NORMOCEPHALIC - Eye Exam Eye Exam: Normal appearance - ENT Exam ENT Exam: Normal External Ear Exam - Neck Exam Neck Exam: Normal Inspection - Respiratory Exam Respiratory Exam: Rales (Occ.), NORMAL BREATHING PATTERN. absent: Accessory Muscle Use, Prolonged Expiratory Phase, Rhonchi, Wheezes, Respiratory Distress, Stridor - Cardiovascular Exam Cardiovascular Exam: REGULAR RHYTHM. absent: JVD - GI/Abdominal Exam GI & Abdominal Exam: absent: Distended - Rectal Exam Rectal Exam: Deferred - Exam Additional comments: Deferred. - Extremities Exam Extremities Exam: Normal Inspection - Back Exam Back Exam: NORMAL INSPECTION - Neurological Exam Neurological Exam: Altered - Psychiatric Exam Psychiatric exam: Agitated - Skin Skin Exam: Normal Color Assessment and Plan - Assessment and Plan (Free Text) Assessment: Agitation. Confusion. Hypoxia. CHF. CKD. COPD. HLD. Anemia. Plan: Duoneb treatment. Lasix 40 mg IV x 1. Discussed with . Consultation with . Continue present management.
[2016-11-11] MEDS ORDERED: Albuterol-Ipratrop 3 mg / 0.5 (3 ml) UD IH STA (20:08)
[2016-11-12] MEDS ORDERED: DiphenhydrAMINE 50 mg/ml Inj IVP STA (01:38)
--- NOTE | 2016-11-12 06:08 | PN ---
DATE: SUBJECTIVE: The patient is an 86-year-old male. The patient was seen and examined on the bedside, looking comfortable, sleepy, arousable, feeling fatigued and tired, but generally, he is a bit better, no coughing, no shortness of breath, no muscular pain, no nausea, vomiting or diarrhea, no hematuria, no hematochezia. PHYSICAL EXAMINATION: VITAL SIGNS: Blood pressure 188/66, respiratory rate 20, pulse is 76 and temperature 98.6. HEENT: Head is normocephalic and atraumatic. Eyes; PERRLA. Extraocular muscles intact. Conjunctive clear. Nose patent. Mucous membranes moist. NECK: Supple. No carotid bruit, JVD or thyromegaly. CHEST: Bilaterally symmetrical. HEART: S1 and S2 positive. LUNGS: Clear to auscultation. ABDOMEN: Soft. Bowel sounds positive. No organomegaly. EXTREMITIES: No edema, no cyanosis. NEUROLOGICAL: The patient is sleepy, arousable. Moving all 4 extremities. No focal deficit. LABORATORY DATA: We do not have recent labs today. MEDICATIONS: Medications are reviewed by me. ASSESSMENT AND PLAN: Mr. Yogesh Ruth is an 86 years old male with hypertension, anemia, chronic obstructive lung disease, small pleural effusion, cardiomyopathy with diastolic and systolic dysfunction, coronary artery disease, hypercholesterolemia, active smoker. The patient is on antibiotics IV, inhaled bronchodilators, gastric and deep vein thrombosis, having sequential compression device to lower extremities. Asked to followup with the supervisor computer operations and tie binder, appreciate with their helps. We will continue hydralazine for blood pressures, Brovana for breathing, Dr. Thor Fairbanks gave the antibiotic aztreonam, iron for iron deficiency, Lasix, Lipitor for dyslipidemia, metoprolol for tachycardia, Neurontin for peripheral neuropathy, Nicoderm patch because of his smoking. The patient is on Primacor drip, Protonix for GI prophylaxis. We will follow up. Irasema Rivas MD
[2016-11-12] MEDS: MethylPREDNISolone 40 mg Vial IVP SCH ×3 (06:36→21:57)
[2016-11-12] MEDS: Budesonide 0.5 mg/2 ml Inhal Susp UD IH SCH ×2 (07:15→19:20)
[2016-11-12] MEDS: Arformoterol 15 mcg/2 ml Inh Sol IH SCH ×2 (07:15→19:20)
[2016-11-12] MEDS: Milrinone 20mg/100ml D5W 100 ML IV PRN (08:01)
[2016-11-12] MEDS: Pantoprazole 40 mg EC Tab PO SCH (10:50)
[2016-11-12] MEDS: Docusate-Senna 50 mg-8.6 mg Tab PO SCH ×2 (13:24→18:10)
--- NOTE | 2016-11-12 16:02 | PN ---
DATE: 11/12/2016 LOCATION: Patient is in room 263, bed 2. REASON FOR CONSULTATION: Followup coronary artery disease, history of CHF, hypertension, history of AICD insertion. SUBJECTIVE: The patient lying flat in bed. Actually, he is sedated right now. He is restless. Ativan was given. There is no respiratory distress. According to nursing, there is no history of chest pain or palpitation. The patient lying flat in bed without any respiratory distress. PHYSICAL EXAMINATION: VITAL SIGNS: Blood pressure 140/55, respirations 16, pulse 68, and temperature 97.6. HEENT: Head is normocephalic. Eyes; pupils normal. Conjunctivae slightly pale. NECK: JVP low. Carotid equal. Thorax, AP diameter normal. LUNGS: No significant rales. CARDIOVASCULAR: S1 and S2. ABDOMEN: Soft and nontender. No organomegaly. Bowel sounds normal. EXTREMITIES: No clubbing. No cyanosis. LABORATORY DATA: WBC 3.9, hemoglobin 9.4, hematocrit 30.6 and platelet 129. Sodium 143, potassium 4.3, BUN 45, creatinine 2.3. The patient's stress test and echo Doppler finding has been mentioned in our previous notes. PLAN: The patient to continue on milrinone drip along with other medications; hydralazine 25 mg t.i.d., Doryx 100 mg q. 12 hours, aspirin 81 mg daily, Venofer 100 mg IV daily, furosemide 40 IV daily, atorvastatin 10 mg daily, metoprolol 12.5 mg b.i.d., milrinone drip continued, Solu-Medrol 20 mg IV q. 8 hours, lisinopril 5 mg daily. We will follow. Radha Jacobson MD
--- NOTE | 2016-11-12 18:19 | RAD ---
HISTORY: H/O CHF. Compare to see improvement. COMPARISON: Comparison chest dated 11/08/2016 TECHNIQUE: Chest PA and lateral FINDINGS: LUNGS: Mild pulmonary vascular congestive changes again noted appears slightly improved from prior study. Bibasilar alveolar-type infiltrates with bilateral effusions left larger than right PLEURA: As above. No pneumothorax apparent. CARDIOVASCULAR: Cardiomegaly. Sternotomy wires and CABG clips. No change single lead pacemaker/ defibrillator OSSEOUS STRUCTURES: No significant abnormalities. VISUALIZED UPPER ABDOMEN: Normal. OTHER FINDINGS: None. IMPRESSION: Mild pulmonary vascular congestion slightly improved from prior study. Bilateral lower lobe alveolar-type infiltrates with bilateral effusions left larger than right. Cardiomegaly.
--- NOTE | 2016-11-12 23:31 | PN ---
PULMONARY PROGRESS NOTE DATE: 11/12/2016 REFERRING PHYSICIAN: Irasema Rivas MD. SUBJECTIVE: The patient is lying in the bed, confused. Night was unremarkable. No headache, no rhinitis, no nausea, no vomiting, and no diarrhea. No leg pain and no leg swelling. Cough feels a little better. OBJECTIVE GENERAL: In no acute distress. VITAL SIGNS: Temperature is 98, heart rate is 75, respiratory rate is 20, and blood pressure 129/79. HEENT: Moist mucous membranes. Crowded airway. Mallampati score is 4. NECK: Supple. No JVD. LUNGS: Have a few scattered rhonchi with prolonged expiratory phase. HEART: S1 and S2. ABDOMEN: Soft and nontender. No organomegaly. EXTREMITIES: Not much edema. NEUROLOGIC: Awake and alert. Follows simple commands. MEDICATION: He is on hydralazine 25 mg 3 times a day, Brovana 50 mcg inhaler twice a day, doxycycline 100 mg twice day, Ecotrin 81 mg daily, on IV iron, Lasix 40 mg IV daily, Lipitor 10 mg daily, metoprolol tartarate 12.5 mg daily, Neurontin 100 mg twice a day, Nicoderm patch daily, Primacor IV drip, Protonix 40 mg daily, Pulmicort inhaler twice a day, Senokot p.r.n. basis, Solu-Medrol 20 mg IV every 8 hours, Zestril 5 mg daily. LABORATORY DATA: Reviewed as noted, no new lab is available since yesterday. He had a chest x-ray done today, which shows mild pulmonary vascular congestion slightly improved from the prior study, bilateral lower lobe alveolar infiltrate with bilateral effusions, left greater than the right. IMPRESSION AND PLAN: Chronic obstructive lung disease, small effusion, cardiomyopathy, diastolic and systolic dysfunction, coronary artery diseases, hypertension, hyperlipidemia, active smoker, iron deficiency anemia, little confused today. We will decrease Solu-Medrol. Continue inhaled bronchodilator, add thiamine 100 mg daily, gastric prophylaxis, sequential compression device to lower extremity, anemia workup. We will follow with you and also cardiology followup. Radha Vail MD
--- NOTE | 2016-11-13 00:54 | CP.PCM.PN ---
Subjective - Date & Time of Evaluation Date of Evaluation: 11/13/16 Time of Evaluation: 00:53 - Subjective Subjective: Patient was seen because it was requested to renew restraints. Patient has been confused , trying to get out of bed. He is quiet now, sleeping. Medical record was reviewed. 86 year old male was admitted sob, weakness, dysuria. Has PMH of CHF, COPD, HTN, HLD, CRF,S/P CABG. Objective - Vital Signs/Intake and Output Vital Signs (last 24 hours): Temp Pulse Resp BP Pulse Ox 98.5 F 92 H 20 156/64 H 7 L 11/12/16 23:59 11/13/16 00:32 11/12/16 23:59 11/12/16 23:59 11/12/16 23:59 Intake and Output: 11/12/16 11/13/16 18:59 06:59 Intake Total 157 Balance 157 - Medications Medications: Current Medications Arformoterol Tartrate (Brovana) 15 mcg IH [id number] [facility] Last Admin: 11/12/16 19:20 Dose: 15 mcg Aspirin (Ecotrin) 81 mg PO DAILY [facility] Last Admin: 11/12/16 10:51 Dose: 81 mg Atorvastatin Calcium (Lipitor) 10 mg PO DIN [facility] Last Admin: 11/12/16 18:31 Dose: 10 mg Budesonide (Pulmicort Respules) 0.5 mg IH [id number] [facility] Last Admin: 11/12/16 19:20 Dose: 0.5 mg Doxycycline Hyclate (Doryx) 100 mg PO Q12 [facility] PRN Reason: Protocol Last Admin: 11/12/16 21:57 Dose: 100 mg Furosemide (Lasix) 40 mg IVP DAILY [facility] Last Admin: 11/12/16 10:50 Dose: 40 mg Gabapentin (Neurontin) 100 mg PO BID [facility] PRN Reason: Protocol Last Admin: 11/12/16 18:10 Dose: 100 mg Hydralazine HCl (Apresoline) 25 mg PO TID [facility] Last Admin: 11/12/16 18:12 Dose: 25 mg Milrinone Lactate/Dextrose (Primacor 20mg/100ml D5w) 100 mls @ 4.79 mls/hr IV .[id number] PRN; Protocol; 0.2 MCG/KG/MIN PRN Reason: TITRATE PER MD ORDER Last Admin: 11/12/16 08:01 Dose: 0.2 mcg/kg/min, 4.79 mls/hr Iron Sucrose 100 mg/ Sodium (Chloride) 105 mls @ 210 mls/hr IVPB DAILY [facility] Stop: 11/13/16 10:29 Last Admin: 11/12/16 10:49 Dose: 210 mls/hr Lisinopril (Zestril) 5 mg PO DAILY [facility] Last Admin: 11/12/16 10:49 Dose: 5 mg Methylprednisolone (Solu-Medrol) 20 mg IVP Q12 [facility] Last Admin: 11/12/16 21:57 Dose: 20 mg Metoprolol Tartrate (Lopressor) 12.5 mg PO BRKDIN [facility] Last Admin: 11/12/16 18:10 Dose: 12.5 mg Nicotine (Nicoderm Cq) 1 patch TD DAILY [facility] Last Admin: 11/12/16 13:25 Dose: 1 patch Pantoprazole Sodium (Protonix Ec Tab) 40 mg PO DAILY [facility] Last Admin: 11/12/16 10:50 Dose: 40 mg Senna/Docusate Sodium (Senokot S 50 Mg-8.6 Mg) 1 tab PO BID [facility] Last Admin: 11/12/16 18:10 Dose: 1 tab - Labs Labs: 11/10/16 09:13 11/10/16 10:30 Micro Results 11/08/16 20:58 Urine Urine Culture - Final No Growth (<1,000 CFU/ML) Most Recent Lab Values WBC 3.9 10^3/ul (4.5-11.0) L 11/10/16 09:13 RBC 3.45 10^6/uL (3.5-6.1) L 11/10/16 09:13 Hgb 9.4 g/dL (14.0-18.0) L 11/10/16 09:13 Hct 30.6 % (42.0-52.0) L 11/10/16 09:13 MCV 88.7 fl (80.0-105.0) 11/10/16 09:13 MCH 27.2 pg (25.0-35.0) 11/10/16 09:13 MCHC 30.7 g/dl (31.0-37.0) L 11/10/16 09:13 RDW 20.0 % (11.5-14.5) H 11/10/16 09:13 Plt Count 129 10^3/uL (120.0-450.0) 11/10/16 09:13 MPV 10.3 fl (7.0-11.0) 11/10/16 09:13 Gran % 90.0 % (50.0-68.0) H 11/10/16 09:13 Lymph % (Auto) 9.4 % (22.0-35.0) L 11/10/16 09:13 [place] % (Auto) 0.3 % (1.0-6.0) L 11/10/16 09:13 Eos % (Auto) 0.0 % (1.5-5.0) L 11/10/16 09:13 Baso % (Auto) 0.3 % (0.0-3.0) 11/10/16 09:13 Gran # 3.47 (1.4-6.5) 11/10/16 09:13 Lymph # 0.4 (1.2-3.4) L 11/10/16 09:13 [place] # 0.0 (0.1-0.6) L 11/10/16 09:13 Eos # 0.0 (0.0-0.7) 11/10/16 09:13 Baso # 0.01 K/mm3 (0.0-2.0) 11/10/16 09:13 pCO2 41 mm/Hg (35-45) 11/08/16 22:13 pO2 69.0 mm/Hg (80-100) L 11/08/16 22:13 HCO3 24.8 mmol/L (21-28) 11/08/16 22:13 ABG pH 7.39 (7.35-7.45) 11/08/16 22:13 ABG Total CO2 26.1 mmol.L (22-28) 11/08/16 22:13 ABG O2 Saturation 96.5 % (95-98) 11/08/16 22:13 ABG O2 Content 13.7 ML/dl (15-23) L 11/08/16 22:13 ABG Base Excess -0.2 mmol/L (-2.0-3.0) 11/08/16 22:13 ABG Hemoglobin 10.5 g/dL (11.7-17.4) L 11/08/16 22:13 ABG Carboxyhemoglobin 3.2 % (0.5-1.5) H 11/08/16 22:13 POC ABG HHb (Measured) 3.4 % (0-5) 11/08/16 22:13 ABG Methemoglobin 1.0 % (0.0-3.0) 11/08/16 22:13 ABG O2 Capacity 14.2 mL/dl (16-24) L 11/08/16 22:13 VBG pH 7.27 (7.32-7.43) L 11/08/16 20:58 VBG pCO2 62.0 (40-60) H 11/08/16 20:58 VBG HCO3 28.5 mmol/l (21-28) H 11/08/16 20:58 VBG Total CO2 30.4 mmol.L (22-28) H 11/08/16 20:58 VBG O2 Sat (Calc) 74.4 % (40-65) H 11/08/16 20:58 VBG Base Excess 0.5 mmol/L (0.0-2.0) 11/08/16 20:58 VBG Potassium 3.9 mmol/L (3.6-5.2) 11/08/16 20:58 Hgb O2 Saturation 92.4 % (95.0-98.0) L 11/08/16 22:13 Sodium 143.0 mmol/L (132-148) 11/08/16 20:58 Chloride 108.0 mmol/L (98-107) H 11/08/16 20:58 Glucose 99 mg/dl (75-110) 11/08/16 20:58 Lactate 1.1 mmol/L (0.7-2.1) 11/08/16 20:58 FiO2 28.0 % 11/08/16 22:13 Sodium 143 mmol/L (132-148) 11/10/16 10:30 Potassium 4.3 mmol/L (3.6-5.0) 11/10/16 10:30 Chloride 106 mmol/L (98-107) 11/10/16 10:30 Carbon Dioxide 27 mmol/L (21-33) 11/10/16 10:30 Anion Gap 14 (10-20) 11/10/16 10:30 BUN 45 mg/dL (7-21) H 11/10/16 10:30 Creatinine 2.3 mg/dL (0.5-1.4) H 11/10/16 10:30 Est GFR ( Amer) 33 11/10/16 10:30 Est GFR (Non-Af Amer) 27 11/10/16 10:30 POC Glucose (mg/dL) 101 mg/dL (65-110) 11/09/16 11:56 Random Glucose 271 mg/dL (70-110) H 11/10/16 10:30 Calcium 9.4 mg/dL (8.4-10.5) 11/10/16 10:30 Phosphorus 3.6 mg/dL (2.5-4.5) 11/08/16 19:40 Magnesium 2.2 mg/dL (1.7-2.2) 11/10/16 10:30 Iron 24 ug/dL (45-180) L 11/10/16 10:30 TIBC 331 ug/dL (261-462) 11/10/16 10:30 % Saturation 7 % (20-55) L 11/10/16 10:30 Transferrin 262.41 mg/dL (206-381) 11/10/16 10:30 Ferritin 20.6 ng/mL 11/10/16 10:30 Total Bilirubin 0.5 mg/dL (0.2-1.3) 11/10/16 10:30 AST 29 U/L (15-59) 11/10/16 10:30 ALT 33 U/L (7-56) 11/10/16 10:30 Alkaline Phosphatase 119 U/L (38-133) 11/10/16 10:30 Lactate Dehydrogenase 696 U/L (333-699) 11/08/16 19:40 Total Creatine Kinase 205 U/L (35-230) 11/08/16 19:40 Troponin I 0.08 ng/mL D 11/10/16 10:30 C-React Prot High Sens 5.49 mg/L (1.00-3.00) H 11/10/16 10:30 NT-Pro-B Natriuret Pep 58443 pg/mL (0-450) H 11/10/16 10:30 Total Protein 6.7 g/dL (5.8-8.3) 11/10/16 10:30 Albumin 3.5 g/dL (3.0-4.8) 11/10/16 10:30 Globulin 3.2 gm/dL 11/10/16 10:30 Albumin/Globulin Ratio 1.1 (1.1-1.8) 11/10/16 10:30 Lipase 172 U/L (23-300) 11/08/16 19:40 Vitamin B12 746 pg/mL (239-931) 11/10/16 10:30 Folate 14.4 ng/mL 11/10/16 10:30 TSH 3rd Generation 5.96 mIU/mL (0.46-4.68) H 11/10/16 10:30 Venous Blood Potassium 3.9 mmol/L (3.6-5.2) 11/08/16 20:58 Urine Color Yellow (YELLOW) 11/08/16 20:58 Urine Appearance Clear (CLEAR) 11/08/16 20:58 Urine pH 6.0 (4.7-8.0) 11/08/16 20:58 Ur Specific [place] 1.015 (1.005-1.035) 11/08/16 20:58 Urine Protein 100 mg/dL (<30 mg/dL) H 11/08/16 20:58 Urine Glucose (UA) Negative mg/dL (NEGATIVE) 11/08/16 20:58 Urine Ketones Negative mg/dL (NEGATIVE) 11/08/16 20:58 Urine Blood Trace-lysed (NEGATIVE) H 11/08/16 20:58 Urine Nitrate Negative (NEGATIVE) 11/08/16 20:58 Urine Bilirubin Negative (NEGATIVE) 11/08/16 20:58 Urine Urobilinogen 1.0 E.U./dL (<1 E.U./dL) H 11/08/16 20:58 Ur Leukocyte Esterase Negative [place]/uL (NEGATIVE) 11/08/16 20:58 Urine RBC 0 - 2 /hpf (0-2) 11/08/16 20:58 Urine WBC 0 - 2 /hpf (0-6) 11/08/16 20:58 Ur Epithelial Cells 0 - 2 /hpf (0-5) 11/08/16 20:58 Urine Bacteria Trace (NEG) 11/08/16 20:58 Blood Type O POSITIVE 11/08/16 19:48 Antibody Screen Negative 11/08/16 19:48 BBK History Checked Patient has bt 11/08/16 19:48 - Constitutional Appears: Well, No Acute Distress, Other (Sleeping.) - Head Exam Head Exam: ATRAUMATIC, NORMAL INSPECTION, NORMOCEPHALIC - Eye Exam Eye Exam: Normal appearance - ENT Exam ENT Exam: Normal External Ear Exam - Neck Exam Neck Exam: Normal Inspection - Respiratory Exam Respiratory Exam: NORMAL BREATHING PATTERN Additional comments: Has BiPAP mask on. - Cardiovascular Exam Cardiovascular Exam: absent: JVD - GI/Abdominal Exam GI & Abdominal Exam: absent: Distended - Rectal Exam Rectal Exam: Deferred - Exam Additional comments: Deferred. - Extremities Exam Extremities Exam: Normal Inspection - Back Exam Back Exam: NORMAL INSPECTION - Neurological Exam Additional comments: Asleep. - Psychiatric Exam Psychiatric exam: Normal Affect, Normal Mood - Skin Skin Exam: Normal Color Assessment and Plan - Assessment and Plan (Free Text) Assessment: Intermittent agitation. Confusion. CHF. COPD. HTN. HLD. CRF. S/P CABG. Plan: Continue vest feliz restraints. Continue present mangment.
[2016-11-13] MEDS: Milrinone 20mg/100ml D5W 100 ML IV PRN (03:25)
--- NOTE | 2016-11-13 04:04 | PN ---
DATE: 11/12/2016 SUBJECTIVE: The patient is an 86-year-old male. The patient was seen and examined at the bedside, looking comfortable. No nausea, vomiting, or diarrhea. No hematuria or hematochezia. No swelling of the leg. No chest pain. No palpitation. No headache, no dizziness. PHYSICAL EXAMINATION VITAL SIGNS: Temperature 98.6, blood pressure 140/55, respiratory rate 16, and pulse oximetry is 58%. HEENT: Head is normocephalic and atraumatic. Eyes; PERRLA. Extraocular muscles intact. Conjunctive clear. Nose patent. Mucous membranes moist. NECK: Supple. No carotid bruit, JVD or thyromegaly. CHEST: Bilaterally symmetrical. HEART: S1 and S2 positive. LUNGS: Clear to auscultation. ABDOMEN: Soft. Bowel sounds positive. No organomegaly. EXTREMITIES: No edema, no cyanosis. NEUROLOGIC: The patient is awake and alert, moving all 4 extremities. No focal deficit. LABORATORY DATA: White blood cells 3.9, hemoglobin 9.4, hematocrit 30.6 and platelet 129. Sodium 143, potassium 4.3, BUN 45, creatinine 2.3. MEDICATIONS: Reviewed by me. Hydralazine, Brovana, doxycycline, Ecotrin, Lasix, Lipitor, metoprolol, Neurontin, Nicoderm, Primacor, Protonix, Pulmicort, Senokot, Solu-Medrol, and Zestril. ASSESSMENT AND PLAN: Mr. Yogesh Ruth is 86 years old male with multiple medical problems, chronic obstructive lung disease, small pleural effusion, cardiomyopathy, diastolic and systolic dysfunction, coronary artery disease, hypertension, hypercholesterolemia, active smoker, iron deficiency anemia. Getting tapering dose of Solu-Medrol, iron. Getting BiPAP. Continue milrinone drop along with other medications; hydralazine and doxycycline, Venofer for iron deficiency anemia. GI and DVT prophylaxis. Repeat labs. We will follow. Irasema Rivas MD [id number]
[2016-11-13] MEDS: Levothyroxine 25 MCG TAB PO SCH (06:00)
[2016-11-13] MEDS: Budesonide 0.5 mg/2 ml Inhal Susp UD IH SCH ×2 (08:19→19:58)
[2016-11-13] MEDS: Arformoterol 15 mcg/2 ml Inh Sol IH SCH ×2 (08:19→19:58)
[2016-11-13 09:39] LABS: ALB/GLOB RATIO 1.1 (1.1-1.8); BILIRUBIN,TOTAL 0.5 mg/dL (0.2-1.3); MAGNESIUM 2.4 mg/dL (1.7-2.2); POTASSIUM 4.5 mmol/L (3.6-5.0); TOTAL PROTEIN 6.9 g/dL (5.8-8.3)
[2016-11-13 09:42] LABS: GRAN # 5.73 (1.4-6.5); GRAN % 85.4 % (50.0-68.0); HEMATOCRIT 32.1 % (42.0-52.0); LYMPH # 0.6 (1.2-3.4); LYMPH % 8.2 % (22.0-35.0); MEAN CELL VOLUME 86.3 fl (80.0-105.0); MEAN CORPUSCULAR HEMOGLOBIN 27.2 pg (25.0-35.0); MEAN CORPUSCULAR HGB CONC 31.5 g/dl (31.0-37.0); MONO # 0.4 (0.1-0.6); MONO % 6.4 % (1.0-6.0); PLATELET COUNT 131 10^3/uL (120.0-450.0); RED CELL DISTRIBUTION WIDTH 20.5 % (11.5-14.5); WHITE BLOOD COUNT 6.7 10^3/ul (4.5-11.0)
[2016-11-13] MEDS: Docusate-Senna 50 mg-8.6 mg Tab PO SCH ×2 (11:20→18:23)
[2016-11-13] MEDS: metOLazone 5 MG TAB PO SCH (11:20)
[2016-11-13] MEDS: Pantoprazole 40 mg EC Tab PO SCH (11:25)
[2016-11-13] MEDS: MethylPREDNISolone 40 mg Vial IVP SCH ×2 (11:25→21:18)
--- NOTE | 2016-11-13 20:54 | PN ---
PULMONARY PROGRESS NOTE DATE: 11/13/2016 REFERRING PHYSICIAN: Irasema Rivas MD. SUBJECTIVE: He is lying in the bed at 45 degrees. Family is at the bedside. Feels better. Decreased cough and shortness of breath. No nausea. No vomiting. No diarrhea. No leg back pain. No leg swelling. PHYSICAL EXAMINATION GENERAL: In no acute distress. VITAL SIGNS: Temperature is 98, heart rate is 75, respiratory rate is 20, blood pressure 140/78, pulse ox is 96% on 2 L nasal cannula. HEENT: Moist mucous membranes. Crowded airway. Mallampati score is 4. NECK: Supple. No JVD. LUNGS: Have a prolonged expiratory phase with wheezing. HEART: S1 and S2. ABDOMEN: Soft and nontender. No organomegaly. EXTREMITIES: No edema. NEUROLOGIC: Awake, alert, follows simple commands. MEDICATIONS: He is on hydralazine 50 mg 3 times a day, Brovana 15 mcg inhaled twice a day, doxycycline 100 mg twice day, Ecotrin 81 mg daily, Lasix 40 mg twice daily, Lipitor 10 mg daily, metoprolol tartarate 50 mg twice a day, Neurontin 100 mg 2 times a day, Nicoderm patch daily, Primacor IV, Protonix 40 mg daily, Pulmicort inhaled twice a day, Solu-Medrol 20 mg q. 12 hours, Synthroid 25 mcg daily, Zaroxolyn 5 mg daily, Zestril 5 mg daily. LABORATORY DATA: Shows hemoglobin 10.1, hematocrit 32.1, WBC 6.7, platelet is 131. Sodium 141, potassium 4.5, chloride 104, bicarbonate 29, BUN 74, creatinine 2.2, glucose 129, calcium is 10, magnesium 2.4, iron is 24, AST 26, ALT 35, alkaline phosphatase is 110, proBNP is 12,500. TSH is 9.90. Microbiology; urine culture, there is no growth. ASSESSMENT AND PLAN: Chronic obstructive lung disease, small pleural effusion, cardiomyopathy, cardiac diastolic and systolic dysfunction, coronary artery disease, hypertension, hyperlipidemia, active smoker, iron deficiency anemia. I spoke to the family at bedside, all the questions answered. We will continue Solu-Medrol. Continue Primacor. After we will reduce the Lasix, watch closely BUN and creatinine. Thiamine was started yesterday. We will follow with you. Radha Vail MD [facility] # [id number]
--- NOTE | 2016-11-13 21:33 | PN ---
DATE: 11/13/2016 LOCATION: The patient is in room 263, bed 2. REASON FOR CONSULTATION AND FOLLOWUP: Cardiomyopathy, CHF, pleural effusion, coronary artery disease, hypertension, history of AICD insertion. SUBJECTIVE: The patient states that his breathing is better and also weakness is gradually improving. He denies any chest pain, shortness of breath, palpitation; however, repeat chest x-ray shows bilateral pleural effusion as well as congestive changes. PHYSICAL EXAMINATION VITAL SIGNS: Blood pressure 140/78, respirations 20, pulse 75, temperature 98.9. Earlier blood pressure today was 157/64. HEENT: Head is normocephalic. Eyes: Pupils normal. Conjunctivae slightly pale. NECK: JVP low. Carotid equal. THORAX: AP diameter normal. LUNGS: No significant rales. CARDIOVASCULAR: S1 and S2. Systolic murmur. No rub. ABDOMEN: Soft and nontender. No organomegaly. EXTREMITIES: No clubbing. No cyanosis. LABORATORY DATA: WBC 6.7, hemoglobin 10.1, hematocrit 32.1, platelet 131. Sodium 141, potassium 4.5, BUN 74, creatinine 2.2, glucose 129, NT-proBNP 12,500, TSH 9.90. DIAGNOSES: Cardiomyopathy, congestive heart failure due to chronic left ventricular failure, bilateral pleural effusion, chronic obstructive pulmonary disease, coronary artery disease, status post coronary artery bypass surgery, anemia, AICD insertion, gastrointestinal bleeding, chronic renal failure, mildly forgetful, hyperlipidemia, tobacco abuse, hypertension, acute on chronic renal insufficiency, chest x-ray still showing bilateral pleural effusion, left more than the right, some congestive changes. PLAN: We will increase the Lasix to 40 IV b.i.d. We will also give Zaroxolyn 5 mg p.o. daily for 2 days to increase the diruesis and we will recheck the chest x-ray. The patient also on aspirin 81 mg daily, lisinopril 5 mg daily. We will increase the hydralazine to 50 mg t.i.d. and we will continue present therapy. Radha Jacobson MD
--- NOTE | 2016-11-13 23:41 | CON ---
DATE: HISTORY OF PRESENT ILLNESS: This is an 86-year-old black male with past medical history of CHF, cardiomyopathy, hypertension, chronic renal failure, anemia, status post AICD, status post CABG and the patient felt weak in the lower extremities and also had a shortness of breath and the patient also has a forgetfulness. PAST MEDICAL HISTORY: As above. ALLERGIES: NO KNOWN DRUG ALLERGIES. PHYSICAL EXAMINATION: HEENT: Normocephalic and atraumatic. NECK: Supple. NEUROLOGIC: Awake and oriented to self and place. Cranial nerves II to XII are tested. Pupils reactive. EOM intact. Spontaneous movement of the extremities noted. Deep tendon reflexes were present. Both plantars are downgoing. Sensory appears intact. Cerebellar and gait deferred. IMPRESSION: Encephalopathy with superimposed on intermittent confusional state. The patient is feeling better and continue present management. We will follow up. Wili Perkins MD
[2016-11-14] MEDS: Milrinone 20mg/100ml D5W 100 ML IV PRN (00:43)
[2016-11-14 05:32] VITALS: O2SAT 99
[2016-11-14] MEDS: Levothyroxine 25 MCG TAB PO SCH ×2 (05:55→07:16)
[2016-11-14] MEDS: Budesonide 0.5 mg/2 ml Inhal Susp UD IH SCH (07:56)
[2016-11-14] MEDS: Arformoterol 15 mcg/2 ml Inh Sol IH SCH (07:57)
[2016-11-14 08:09] LABS: POTASSIUM 4.4 mmol/L (3.6-5.0)
--- NOTE | 2016-11-14 08:33 | PN ---
DATE: SUBJECTIVE: The patient is an 86 years old male. The patient was seen and examined at the bedside, sitting comfortably. Still has asthma and getting DuoNeb treatment. Son, Shola is sitting on the bedside. No nausea, vomiting, or diarrhea. Appreciate Dr. Mahmood's input. No hematuria or hematochezia. The patient is quiet, but asking me when he can go to home. Otherwise, no other complaints. PHYSICAL EXAMINATION VITAL SIGNS: Temperature 98.5, pulse 92, blood pressure 152/64, respiratory rate 20 HEENT: Head is normocephalic and atraumatic. Eyes; PERRLA. Extraocular muscles intact. Conjunctiva clear. Nose patent. Mucous membranes moist.. NECK: Supple. No carotid bruits. No JVD or thyromegaly. CHEST: Bilaterally symmetrical. HEART: S1 and S2 positive. LUNGS: Clear to auscultation. ABDOMEN: Soft. Bowel sounds positive. No organomegaly. EXTREMITIES: No edema, no cyanosis. NEUROLOGICAL: The patient is awake and alert. Follows simple commands. MEDICATIONS: Brovana, Ecotrin, Lipitor, Pulmicort, doxycycline, Lasix, Neurontin, hydralazine, Pepcid, Solu-Medrol, and Nicoderm. LABORATORY DATA: White blood cell is 3.9, hemoglobin 9.4, hematocrit 30.6 and platelets 129. Sodium 143, potassium 4.3, BUN 45, creatinine 2.3, glucose 271. ASSESSMENT AND PLAN: Mr. Yogesh Ruth is an 86 years old male with leukopenia, anemia, renal insufficiency, hyperglycemia, history of congestive heart failure, chronic obstructive pulmonary disease, hypertension, hypercholesterolemia, coronary artery disease status post coronary artery bypass grafting. He is confused, trying to get out of the bed, small pleural effusion, cardiomyopathy, diastolic and systolic dysfunction, active smoker, iron deficiency, getting tapering dose of Solu-Medrol, inhaled bronchodilators, thiamine, gastric prophylaxis, compression device to the lower extremities. Discussion done with the patient's son, Shola. All questions answered. Gastrointestinal and deep venous thrombosis prophylaxis. Repeat labs. We will follow. Irasema Rivas MD [facility]
--- NOTE | 2016-11-14 09:23 | CARD ---
APPROVED REPORT EKG Measurement Heart [id number] <Conclusion> Sinus rhythm with 1st degree AV block Possible Left atrial enlargement Right bundle branch block Left anterior fascicular block Bifascicular block Left ventricular hypertrophy with repolarization abnormality Abnormal ECG
[2016-11-14] MEDS: metOLazone 5 MG TAB PO SCH (11:30)
[2016-11-14] MEDS: Docusate-Senna 50 mg-8.6 mg Tab PO SCH ×2 (11:31→17:34)
[2016-11-14] MEDS: MethylPREDNISolone 40 mg Vial IVP SCH (11:31)
[2016-11-14] MEDS: Pantoprazole 40 mg EC Tab PO SCH (11:31)
[2016-11-14 11:54] VITALS: RESP 20
--- NOTE | 2016-11-14 12:36 | RAD ---
HISTORY: reeval chf COMPARISON: 11/12/2016 FINDINGS: LUNGS: No active pulmonary disease. PLEURA: No significant pleural effusion identified, no pneumothorax apparent. CARDIOVASCULAR: Moderate cardiomegaly. Severe vascular congestion unchanged OSSEOUS STRUCTURES: Sternal wires VISUALIZED UPPER ABDOMEN: Normal. OTHER FINDINGS: Single lead pacemaker IMPRESSION: Moderate cardiomegaly. Severe vascular congestion unchanged
--- NOTE | 2016-11-14 14:28 | PN ---
DATE: 11/14/2016 REASON FOR CONSULTATION: Followup cardiomyopathy, CHF, pleural effusion, coronary artery disease, and status post AICD. SUBJECTIVE: Denies any chest pain, shortness of breath, or any palpitation. PHYSICAL EXAMINATION: GENERAL: Sitting at bedside, not in apparent distress. VITAL SIGNS: Temperature afebrile, heart rate 77, and blood pressure 148/56. HEENT: PERRLA. Extraocular muscles intact. NECK: Supple. No carotid bruits or thyromegaly. CHEST: Clear to auscultation. HEART: S1 and S2 regular. ABDOMEN: Soft. EXTREMITIES: Clubbing and cyanosis negative. LABORATORY DATA: Blood workup as follows; WBC 6.7, hemoglobin 10.9, hematocrit 32.1, and platelet count 131. Chemistry shows sodium 140, potassium 4.4, chloride 98, carbon dioxide 11, anion gap of 15, BUN 89, and creatinine 2.7. IMPRESSION: An 86-year-old male with past medical history significant for cardiomyopathy, history of congestive heart failure chronic secondary to systolic dysfunction, hypertension, pleural effusion, chronic obstructive pulmonary disease, acute kidney injury, chronic renal insufficiency, history of coronary artery disease, history of coronary artery bypass surgery, history of automatic implantable cardioverter-defibrillator placement, positive troponin on admission secondary to acute renal insufficiency, subsequent troponins negative, history of tobacco abuse, history of renal insufficiency, and history of bilateral pleural effusion. RECOMMENDATIONS: The patient was on Primacor, continue for the next 24 hours Primacor, monitor renal function, continue diuretics, and repeat chest x-ray. Last x-ray on , which showed mild pulmonary congestion significantly improved from previous study, and bilateral lower lobe alveolar type infiltrate and bilateral effusion left greater than on . We will repeat and monitor renal function closely. Interim, continue aspirin, avoid nephrotoxic medication, continue beta-gina, and continue hydralazine for blood pressure. We will follow with you. I will repeat the blood workup in the morning and discontinue Primacor tomorrow at 7. Getting ready for discharge in the middle of the weekend. We will get also uric acid level as well. Thank you Dr. Rivas for providing me the opportunity in taking care of patient, Faraz Zuñiga. Radha Woodward MD [facility] # [id number]
[2016-11-14 17:42] VITALS: BP 142/43; TEMP 98.3
[2016-11-14 18:54] VITALS: PULSE 75
--- NOTE | 2016-11-14 20:02 | CP.PCM.PN ---
<Ruperto Virgen - Last Filed: 11/14/16 19:58> Subjective - Date & Time of Evaluation Date of Evaluation: 11/14/16 Time of Evaluation: 09:40 - Subjective Subjective: Neurology Progress Note for Dr. Perkins Service Patient seen and examined at bedside. No acute events reported overnight. Patient is confused this AM, oriented only to self. No acute agitation or distress. Denies overt issues including chest pain and shortness of breath, but unreliable, so ROS limited. Objective - Vital Signs/Intake and Output Vital Signs (last 24 hours): Temp Pulse Resp BP Pulse Ox 98.3 F 75 20 142/43 L 99 11/14/16 17:40 11/14/16 18:00 11/14/16 17:40 11/14/16 17:40 11/14/16 05:31 Intake and Output: 11/14/16 11/15/16 18:59 06:59 Intake Total 840 Output Total 875 Balance -35 - Medications Medications: Current Medications Arformoterol Tartrate (Brovana) 15 mcg IH [id number] [facility] Last Admin: 11/14/16 07:57 Dose: 15 mcg Aspirin (Ecotrin) 81 mg PO DAILY [facility] Last Admin: 11/14/16 11:30 Dose: 81 mg Atorvastatin Calcium (Lipitor) 10 mg PO DIN [facility] Last Admin: 11/14/16 17:32 Dose: 10 mg Budesonide (Pulmicort Respules) 0.5 mg IH [id number] [facility] Last Admin: 11/14/16 07:56 Dose: 0.5 mg Doxycycline Hyclate (Doryx) 100 mg PO Q12 [facility] PRN Reason: Protocol Last Admin: 11/14/16 11:30 Dose: 100 mg Furosemide (Lasix) 40 mg PO BID [facility] Last Admin: 11/14/16 17:33 Dose: 40 mg Gabapentin (Neurontin) 100 mg PO BID [facility] PRN Reason: Protocol Last Admin: 11/14/16 17:33 Dose: 100 mg Hydralazine HCl (Apresoline) 50 mg PO TID [facility] Last Admin: 11/14/16 17:39 Dose: Not Given Levothyroxine Sodium (Synthroid) 25 mcg PO 0600 [facility] Last Admin: 11/14/16 07:16 Dose: 25 mcg Lisinopril (Zestril) 5 mg PO DAILY [facility] Last Admin: 11/14/16 11:29 Dose: 5 mg Metoprolol Tartrate (Lopressor) 50 mg PO BRKDIN [facility] Last Admin: 11/14/16 17:33 Dose: 50 mg Nicotine (Nicoderm Cq) 1 patch TD DAILY [facility] Last Admin: 11/14/16 11:32 Dose: 1 patch Pantoprazole Sodium (Protonix Ec Tab) 40 mg PO DAILY [facility] Last Admin: 11/14/16 11:31 Dose: 40 mg Prednisone (Prednisone Tab) 20 mg PO DAILY [facility] Senna/Docusate Sodium (Senokot S 50 Mg-8.6 Mg) 1 tab PO BID [facility] Last Admin: 11/14/16 17:34 Dose: 1 tab Thiamine HCl (Vitamin B1 Tab) 100 mg PO DAILY [facility] Last Admin: 11/14/16 17:36 Dose: 100 mg - Labs Labs: 11/13/16 09:15 11/14/16 07:45 - Constitutional Appears: Non-toxic, No Acute Distress, Chronically Ill - Head Exam Head Exam: ATRAUMATIC, NORMAL INSPECTION, NORMOCEPHALIC - Eye Exam Eye Exam: EOMI, Normal appearance. absent: Conjunctival injection, Scleral icterus Pupil Exam: absent: Irregular, Unequal - ENT Exam ENT Exam: Mucous Membranes Moist - Respiratory Exam Respiratory Exam: Decreased Breath Sounds (mild-moderate decreased breath sounds in all house), Prolonged Expiratory Phase. absent: Accessory Muscle Use , Chest Wall Tenderness, Rales, Rhonchi, Wheezes, Respiratory Distress - Cardiovascular Exam Cardiovascular Exam: REGULAR RHYTHM, RRR, +S1, +S2. absent: Bradycardia, Tachycardia, Irregular Rhythm, +S4 - GI/Abdominal Exam GI & Abdominal Exam: Soft, Normal Bowel Sounds. absent: Distended, Firm, Rigid , Tenderness, Diminished Bowel Sounds, Hypoactive Bowel Sounds - Extremities Exam Extremities Exam: absent: Calf Tenderness, Pedal Edema, Tenderness - Neurological Exam Additional comments: awake and alert, oriented to self only, following some commands (needs repeated prompting for several commands), some tremulousness in bilateral hands - Psychiatric Exam Additional comments: Pleasantly confused, not grossly agitated - Skin Skin Exam: Dry, Intact, Normal Color, Warm Assessment and Plan - Assessment and Plan (Free Text) Assessment: This is an 86 yo AA M with PMH of CHF, COPD, HTN, HLD, CRF, and CAD s/p CABG who presented to [facility] with weakness, and later had a rapid response for worsening hypoxia and confusion, requiring BiPAP. Transient confusional state 2/2 chronic medical conditions, including CHF, COPD , and Cardiomyopathy. Cognitive impairment from underlying general medical conditions. Plan: 1) ASA 81mg/Lipitor 10mg PO daily for stroke prevention 2) F/u Pulm recs for Brovana/Pulmicort/Steroids 3) F/u Cardio recs for underlying CHF on Lasix 4) Avoid hypotensive episodes, SBP > 130 5) Thiamine 100mg PO daily for cognition 6) Delirium precautions; avoid nighttime interruptions, frequent daytime reorientations 7) PT/OT Patient seen, reviewed, and discussed with attending, Dr. Naomi Perkins. Please reconsult if patient experiences any changes. <Uche Perkins - Last Filed: 11/15/16 11:15> Objective - Vital Signs/Intake and Output Vital Signs (last 24 hours): Temp Pulse Resp BP Pulse Ox 98.3 F 75 20 142/43 L 99 11/14/16 17:40 11/14/16 18:00 11/14/16 17:40 11/14/16 17:40 11/14/16 05:31 - Labs Labs: 11/13/16 09:15 11/14/16 07:45 Attending/Attestation - Attestation I have personally seen and examined this patient.: Yes I have fully participated in the care of the patient.: Yes I have reviewed all pertinent clinical information, including history, physical exam and plan: Yes
--- NOTE | 2016-11-15 00:08 | PN ---
DATE: 11/14/2016 SUBJECTIVE: The patient is an 86 years old male. The patient was seen and examined at the bedside, looking comfortable. No more restraint. No nausea, vomiting, or diarrhea. No hematuria or hematochezia. No swelling of the leg. No chest pain. No palpitation. No headache, no dizziness. PHYSICAL EXAMINATION: GENERAL: Temperature 98.6, heart rate 77, blood pressure 140/50, respiratory rate 18. HEENT: Head is normocephalic and atraumatic. Eyes; PERRLA. Extraocular muscles intact. Conjunctive clear. Nose patent. Mucous membranes moist. NECK: Supple. No carotid bruit, no JVD or thyromegaly. CHEST: Bilaterally symmetrical. HEART: S1 and S2 positive. LUNGS: Clear to auscultation. ABDOMEN: Soft. Bowel sounds positive. No organomegaly. EXTREMITIES: No edema, no cyanosis. NEUROLOGIC: The patient is awake and alert, moving all 4 extremities. No focal deficit. LABORATORY DATA: White blood cells 6.7, hemoglobin 10.9, hematocrit 32.1 and platelets 131. Sodium 140, potassium 4.4, BUN 89, and creatinine 2.7. MEDICATIONS: Hydralazine, Brovana, doxycycline, Ecotrin, Lasix, Lipitor, metoprolol, Neurontin, Nicoderm, Protonix, prednisone, Pulmicort, Synthroid, thiamine, Zestril. ASSESSMENT AND PLAN: The patient is an 86-year-old male with multiple medical problems. History of cardiomyopathy, congestive heart failure, chronic obstructive lung disease, hypertension, pleural effusion, acute kidney injury, has chronic renal failure, history of coronary artery disease, history of coronary artery bypass, has automatic implantable cardioverter-defibrillator placement, positive troponin on admission secondary to acute renal insufficiency. Serial troponins are negative, history of tobacco abuse. The patient is on Primacor, continue for next 24 hours. Monitor renal function, continue diuretics and repeat chest x-rays, mild pulmonary congestion on chest x-rays, significantly improved from previous studies, bilateral lower lobe alveolar-type infiltrate and greater on the left side than on the right. Continue aspirin, avoid nephrotoxic medication and continue beta blockers, hydralazine. GI and DVT prophylaxis. Repeat labs. We will followup. Irasema Rivas MD [facility]
--- NOTE | 2016-11-15 02:04 | PN ---
DATE: 11/14/2016 PULMONARY PROGRESS NOTE REFERRING PHYSICIAN: Dr. Rivas. SUBJECTIVE: He is sitting at the side of the bed having dinner, will be transferred to subacute facility. Feels much better. Decreased cough. Decreased shortness of breath. No nausea. No vomiting. No diarrhea. No leg back pain. No leg swelling. PHYSICAL EXAMINATION GENERAL: No acute distress. VITAL SIGNS: Temperature is 98, heart rate is 17, respiratory rate is 20, blood pressure 142/43 and pulse ox 99% on BiPAP this morning. HEENT: Moist mucous membranes. Crowded airway. Mallampati score is 4. NECK: Supple. No JVD. LUNGS: with few crackle, expiratory, few wheezing with fair airflow. HEART: S1 and S2. ABDOMEN: Soft and nontender. No organomegaly. EXTREMITIES: There is no edema. NEUROLOGIC: Awake, alert and follows simple commands. MEDICATIONS: Reviewed and no new change in medication from yesterday. LABORATORY DATA: Show sodium 140, potassium 4.4, chloride 98, bicarbonate 31, BUN 89, creatinine 2.7, glucose 133 and calcium 10.0. Microbiology: Urine culture is again negative. Chest x-ray done today shows moderate cardiomegaly, severe congestion. IMPRESSION AND PLAN: Chronic obstructive lung disease, small pleural effusion, cardiomyopathy, chronic diastolic and systolic dysfunction, coronary artery disease, hypertension, hyperlipidemia, active smoker, iron-deficiency anemia and renal failure. Spoke to nursing staff. 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 Urged him to stop smoking. PRN inhaled bronchodilator. High risk for heart failure. Follow up electrolyte. Radha Vail MD
--- NOTE | 2016-11-15 23:40 | DS ---
DISCHARGED TO: [facility]. CHIEF COMPLAINT: Weakness and neurological deficits. HISTORY OF PRESENT ILLNESS: Mr. Faraz Zuñiga is an 86-year-old male with past medical history of congestive heart failure, COPD, chronic renal failure, hypertension, hypercholesterolemia, coronary artery disease, CABG, came to the emergency room with weakness that began a few hours ago. According to him, he was walking to get water at home and he suddenly felt that his lower extremity became weak. He states that prior to coming in, he has had shortness of breath and lightheadedness. We admitted the patient, did CAT scan of the chest and abdomen. Seen by Dr. Radha Woodward, Portuguese Tutor, Dr. Vail, Health Information Tech, Dr. Wili Perkins, Neurologist. Got better, improved, transferred to [facility] for continuity of care and for rehab. PAST MEDICAL HISTORY: Congestive heart failure, COPD, dementia, seizure disorder, anemia, blood transfusion, falls, gastritis, coronary artery disease, and history of coronary artery bypass. FAMILY HISTORY: Father and mother noncontributory. HABITS: Light smoker, less than 10 cigarettes per day. No alcohol. No substance abuse. ALLERGIES: THE PATIENT IS NOT ALLERGIC TO ANY MEDICATIONS. HOME MEDICATIONS: Reviewed by me. REVIEW OF SYSTEMS: The patient is seen and examined on the bedside, looking comfortable. No nausea, vomiting, or diarrhea. No hematuria or hematochezia. No swelling of the leg. No chest pain. No palpitations. No headache, no dizziness. PHYSICAL EXAMINATION: VITAL SIGNS: Temperature 98.6, heart rate 77, blood pressure 114/56. HEENT: Head; normocephalic and atraumatic. Eyes; PERRLA. Extraocular muscles intact. Conjunctivae clear. Nose is patent. Mucous membranes moist. NECK: Supple. No carotid bruits, JVD or thyromegaly. CHEST: Bilaterally symmetrical. HEART: S1 and S2 positive. LUNGS: Clear to auscultation. ABDOMEN: Soft. Bowel sounds are present. No organomegaly. EXTREMITIES: No edema and no cyanosis. NEUROLOGIC: The patient is awake. Moving all four extremities. Follow simple commands. LABORATORY DATA: White blood cell 6.7, hemoglobin 10.9, hematocrit 32.1 and platelet 131. Sodium 140, potassium 4.4, BUN 89 and creatinine 2.7. ASSESSMENT AND PLAN: Mr. Faraz Zuñiga is an 86-year-old male with past medical history of cardiomyopathy, history of congestive heart failure, chronic secondary to systolic dysfunction, hypertension, pleural effusion, chronic obstructive pulmonary disease, acute kidney injury, chronic renal insufficiency, coronary artery disease, history of coronary artery bypass surgery, history of automatic implantable cardioverter-defibrillator placement, history of positive troponin, but trending down, history of tobacco abuse. The patient was on Pulmicort. Continue for next 24 hour Pulmicort. Monitoring renal function. Continue diuretics. Continue chest x-ray. Last x-ray was on , which showed mild pulmonary congestion significantly improved from previous study and bilateral lower lobe alveolar type infiltration and bilateral effusion left greater than right. We will follow up with the patient. Repeat blood culture. Discharged the patient to [facility] by nurse practitioner, Soumya. Gastrointestinal and deep venous thrombosis prophylaxis. We will followup. Irasema Rivas MD
== END 2016-11-14 21:32 | DRG 291 ==
LOC: ED 18:29 → ERH 22:21 → 2RNO 23:35
PROVIDERS: ADMIT Internal Medicine; ATTEND Internal Medicine
PROC: 5A1935Z Respiratory Ventilation, Less than 24 Consecutive Hours (ICD-10-PCS; principal; 2016-11-08)
DX: I13.0 Hypertensive heart and chronic kidney disease with heart failure and stage 1 through stage 4 chronic kidney disease, or unspecified chronic kidney disease (principal); G93.40 Encephalopathy, unspecified; N17.9 Acute kidney failure, unspecified; I50.22 Chronic systolic (congestive) heart failure; J44.1 Chronic obstructive pulmonary disease with (acute) exacerbation; F03.90 Unspecified dementia, unspecified severity, without behavioral disturbance, psychotic disturbance, mood disturbance, and anxiety; I42.9 Cardiomyopathy, unspecified; F17.210 Nicotine dependence, cigarettes, uncomplicated; D50.9 Iron deficiency anemia, unspecified; E83.41 Hypermagnesemia; G62.9 Polyneuropathy, unspecified; N18.9 Chronic kidney disease, unspecified; G40.909 Epilepsy, unspecified, not intractable, without status epilepticus; I25.10 Atherosclerotic heart disease of native coronary artery without angina pectoris; K29.70 Gastritis, unspecified, without bleeding; E78.5 Hyperlipidemia, unspecified; I37.1 Nonrheumatic pulmonary valve insufficiency; E78.00 Pure hypercholesterolemia, unspecified; R73.9 Hyperglycemia, unspecified; G47.33 Obstructive sleep apnea (adult) (pediatric); R41.0 Disorientation, unspecified; R09.02 Hypoxemia; Z95.810 Presence of automatic (implantable) cardiac defibrillator; Z79.82 Long term (current) use of aspirin; Z78.1 Physical restraint status; Z95.1 Presence of aortocoronary bypass graft

== ENCOUNTER 2017-04-11 15:00 | Emergency (ER) | payer MEDICARE, OTHER ==
[2017-04-11 15:09] VITALS: BMI 25.7
[2017-04-11 15:34] VITALS: TEMP 97.5
--- NOTE | 2017-04-11 15:47 | ED PDOC ---
Arrival/HPI - General Chief Complaint: Shortness Of Breath Time Seen by Provider: 04/11/17 15:31 - History of Present Illness Narrative History of Present Illness (Text): 86 y/o M c PMHx CHF, HTN p/w dyspnea. Patient at PMD's office this AM, felt dyspneic in office and instructed to come to ED. Dyspnea x 3 weeks. Cough productive of white sputum. Feels similar to previous CHF exacerbations. Reports lower leg edema. Denies chest pain, abdominal pain, nausea, vomiting, fever, chills. Past Medical History - Cardiac Hx Cardiac Disorders: Yes Hx Congestive Heart Failure: Yes Hx Hypertension: Yes - Pulmonary Hx Chronic Obstructive Pulmonary Disease (COPD): Yes - Neurological Hx Neurological Disorder: Yes Hx Dementia: Yes Other/Comment: As per daughter, pt has mild dementia. - HEENT Hx HEENT Disorder: No - Renal Hx Renal Failure: Yes - Endocrine/Metabolic Hx Endocrine Disorders: No - Hematological/Oncological Hx Blood Disorders: Yes Hx Anemia: Yes Other/Comment: Had blood transfusions for anemia - Integumentary Hx Dermatological Disorder: No - Musculoskeletal/Rheumatological Hx Musculoskeletal Disorders: Yes Hx Falls: Yes - Gastrointestinal Hx Gastrointestinal Disorders: Yes Other/Comment: Gastritis - Genitourinary/Gynecological Hx Genitourinary Disorders: No - Psychiatric Hx Psychophysiologic Disorder: No Hx Substance Use: No - Surgical History Hx Coronary Stent: Yes Other/Comment: CABG, coronary stent - Anesthesia Hx Anesthesia: Yes Hx Anesthesia Reactions: No Hx Malignant Hyperthermia: No - Suicidal Assessment Feels Threatened In Home Enviroment: No Family/Social History Family/Social History: No Known Family HX Smoking Status: Current Some Days Smoker Hx Alcohol Use: No Hx Substance Use: No Allergies/Home Meds Allergies/Adverse Reactions: Allergies No Known Allergies Allergy (Verified 11/08/16 18:45) Home Medications: Home Meds Medication Instructions Recorded Confirmed Aspirin [Aspirin Chewable] 1 tab PO DAILY 11/08/16 11/08/16 Gabapentin [Neurontin] 1 cap PO BID 11/08/16 11/08/16 Pantoprazole Sodium [Protonix] 1 tab PO DAILY 11/08/16 11/08/16 Sennosides/Docusate Sodium [Senna 1 tab PO BID 11/08/16 11/08/16 S Tablet] Simvastatin [Zocor] 1 tab PO HS 11/08/16 11/08/16 Review of Systems - Physician Review All systems were reviewed & negative as marked: Yes - Review of Systems Constitutional: absent: Fevers Cardiovascular: absent: Chest Pain Physical Exam - Physical Exam Narrative Physical Exam (Text): Gen: Speaking in short sentences. Head: Atraumatic. Eyes: No nystagmus ENT: Dry MM Neck: No JVD. Chest: Pacemaker on L CV: S1S2, no S3 Lungs: Crackles bibasilar Extremities: Bilateral lower leg pitting edema. Neuro: Alert, no focal deficit. Vital Signs Temp Pulse Resp BP Pulse Ox 04/11/17 16:35 26 H 04/11/17 15:30 97.5 F L 76 22 185/83 H 90 L Medical Decision Making ED Course and Treatment: EKG NSR 70 bpm, LAD, RBBB, no ST elevations. CXR congestion and cardiomegaly. - Lab Interpretations Lab Results: 04/11/17 15:45 04/11/17 15:45 Lab Results 04/11/17 15:45: Sodium 144, Potassium 4.3, Chloride 106, Carbon Dioxide 28, Anion Gap 14, BUN 31 H, Creatinine 2.5 H, Est GFR ( Amer) 30, Est GFR ( Non-Af Amer) 24, Random Glucose 95, Calcium 10.5, Total Bilirubin 0.5, AST 30, ALT 47, Alkaline Phosphatase 167 H, Total Creatine Kinase 121, Troponin I 0.08, NT-Pro-B Natriuret Pep 10205 H, Total Protein 6.9, Albumin 3.6, Globulin 3.3, Albumin/Globulin Ratio 1.1 04/11/17 15:45: PT 14.1 H, INR 1.23 H, APTT 29.7 04/11/17 15:45: WBC 5.3 D, RBC 3.34 L, Hgb 8.7 L, Hct 28.5 L, MCV 85.3, MCH 26.0, MCHC 30.5 L, RDW 19.2 H, Plt Count 165, MPV 10.1, Gran % 64.4, Lymph % ( Auto) 15.3 L, [place] % (Auto) 9.6 H, Eos % (Auto) 8.3 H, Baso % (Auto) 2.4, Gran # 3.42, Lymph # 0.8 L, [place] # 0.5, Eos # 0.4, Baso # 0.13 - RAD Interpretation Radiology Orders: 04/11/17 16:02 CHEST PORTABLE [RAD] Stat - Medication Orders Current Medication Orders: Discontinued Medications Furosemide (Lasix) 40 mg IVP STAT STA Stop: 04/11/17 16:37 Disposition/Present on Arrival - Present on Arrival Any Indicators Present on Arrival: No History of DVT/PE: No History of Uncontrolled Diabetes: No Urinary Catheter: No History of Decub. Ulcer: No History Surgical Site Infection Following: None - Disposition Have Diagnosis and Disposition been Completed?: Yes Diagnosis: CHF exacerbation Disposition: HOSPITALIZED Disposition Time: 16:51 Patient Plan: Admission, Telemetry Condition: GUARDED Discharge Instructions (ExitCare): Heart Failure (ED) Referrals: Tori Das, [Primary Care Provider] - Follow up with primary Forms: [employer] (Ukrainian)
[2017-04-11 16:14] LABS: BASO # 0.13 K/mm3 (0.0-2.0); BASO % 2.4 % (0.0-3.0); EOS # 0.4 (0.0-0.7); EOS % 8.3 % (1.5-5.0); GRAN # 3.42 (1.4-6.5); GRAN % 64.4 % (50.0-68.0); HEMOGLOBIN 8.7 g/dL (14.0-18.0); LYMPH # 0.8 (1.2-3.4); LYMPH % 15.3 % (22.0-35.0); MEAN CELL VOLUME 85.3 fl (80.0-105.0); MEAN CORPUSCULAR HGB CONC 30.5 g/dl (31.0-37.0); MEAN PLATELET VOLUME 10.1 fl (7.0-11.0); MONO # 0.5 (0.1-0.6); MONO % 9.6 % (1.0-6.0); RBC 3.34 10^6/uL (3.5-6.1); RED CELL DISTRIBUTION WIDTH 19.2 % (11.5-14.5); WHITE BLOOD COUNT 5.3 10^3/ul (4.5-11.0)
[2017-04-11 16:21] LABS: ALB/GLOB RATIO 1.1 (1.1-1.8); ALBUMIN 3.6 g/dL (3.0-4.8); CALCIUM 10.5 mg/dL (8.4-10.5)
[2017-04-11 16:23] LABS: INR 1.23 (0.93-1.08); PARTIAL THROMBOPLASTIN TIME 29.7 Seconds (25.1-36.5); PROTHROMBIN TIME 14.1 SECONDS (9.4-12.5)
[2017-04-11 16:32] LABS: TROPONIN I 0.08 ng/mL
[2017-04-11 17:04] LABS: PH,URINE 6.5 (4.7-8.0); URINE BILIRUBIN NEGATIVE (NEGATIVE); URINE BLOOD NEGATIVE (NEGATIVE); URINE GLUCOSE (UA) NEGATIVE (NEGATIVE); URINE LEUKOCYTE ESTERASE NEGATIVE Leu/uL (NEGATIVE); URINE NITRATE NEGATIVE (NEGATIVE); URINE PROTEIN TRACE mg/dL (<30 mg/dL); URINE UROBILINOGEN 0.2 E.U./dL (<1 E.U./dL)
[2017-04-11 17:16] LABS: URINE APPEARANCE CLEAR (CLEAR); URINE COLOR YELLOW (YELLOW); URINE RBC 0 - 2 /hpf (0-2); URINE WBC 0 - 2 /hpf (0-6)
[2017-04-11 17:17] LABS: URINE EPITHELIAL CELLS 0 - 2 /hpf (0-5)
--- NOTE | 2017-04-11 17:30 | RAD ---
HISTORY: dyspnea COMPARISON: Chest x-ray performed 11/14/16 TECHNIQUE: Chest, one view. FINDINGS: LUNGS: Mild to moderate pulmonary venous congestion. No focal consolidation. Please note that chest x-ray has limited sensitivity for the detection of pulmonary masses. PLEURA: No significant pleural effusion identified. No definite pneumothorax . CARDIOVASCULAR: Median sternotomy wires. Cardiomegaly. Atherosclerotic calcifications of the aorta. Single lead left-sided AICD. OSSEOUS STRUCTURES: Osseous demineralization. Degenerative changes. VISUALIZED UPPER ABDOMEN: Unremarkable. OTHER FINDINGS: None. IMPRESSION: Mild to moderate pulmonary venous congestion. Bibasilar atelectasis/infiltrates. Median sternotomy wires. Cardiomegaly. Atherosclerotic calcifications. Single lead left-sided AICD.
--- NOTE | 2017-04-11 21:00 | CP.PCM.PN ---
Subjective - Date & Time of Evaluation Date of Evaluation: 04/11/17 Time of Evaluation: 20:30 - Subjective Subjective: ot was admitted for sob chf wants to sign AMA. states he can take care of himself at home. Objective - Vital Signs/Intake and Output Vital Signs (last 24 hours): Temp Pulse Resp BP Pulse Ox 97.5 F L 77 22 179/82 H 93 L 04/11/17 15:30 04/11/17 17:12 04/11/17 17:12 04/11/17 17:12 04/11/17 17:12 Intake and Output: 04/11/17 04/12/17 18:59 06:59 Output Total 200 Balance -200 - Labs Labs: PT 14.1 SECONDS (9.4-12.5) H 04/11/17 15:45 INR 1.23 (0.93-1.08) H 04/11/17 15:45 APTT 29.7 Seconds (25.1-36.5) 04/11/17 15:45 - Constitutional Appears: No Acute Distress - Head Exam Head Exam: NORMOCEPHALIC - Eye Exam Eye Exam: Normal appearance Pupil Exam: PERRL - ENT Exam ENT Exam: Mucous Membranes Moist - Neck Exam Neck Exam: Full ROM - Respiratory Exam Respiratory Exam: NORMAL BREATHING PATTERN - Cardiovascular Exam Cardiovascular Exam: RRR, +S1, +S2 - GI/Abdominal Exam GI & Abdominal Exam: Soft - Rectal Exam Rectal Exam: Deferred - Neurological Exam Neurological Exam: Alert, Awake, CN II-XII Intact, Oriented x3 - Skin Skin Exam: Normal Color Assessment and Plan - Assessment and Plan (Free Text) Assessment: AMA. chf. Plan: pt was explained the risk of increased sob chf arrythmia and .
--- NOTE | 2017-04-11 21:33 | CARD ---
APPROVED REPORT EKG Measurement Heart [id number] <Conclusion> Normal sinus rhythm Possible Left atrial enlargement Right bundle branch block Left anterior fascicular block Bifascicular block Left ventricular hypertrophy with repolarization abnormality Abnormal ECG
[2017-04-11 22:07] VITALS: BP 136/82; PULSE 82; RESP 20; O2SAT 100
== END 2017-04-11 20:55 | disposition left against medical advice (07) ==
LOC: ED 15:00 → UNDOADMIN 16:48 → ERH 16:48 → ED 20:55
DX: I50.9 Heart failure, unspecified (principal); I10 Essential (primary) hypertension
CPT/HCPCS: 71045; 80053; 81001; 82550; 83880; 84484; 85025; 85610; 85730; 87040; 87804; 93005; 96374; 99285; J1940

== ENCOUNTER 2017-12-20 22:25 | Inpatient (IN) | payer MEDICARE, OTHER ==
--- NOTE | 2017-12-20 22:37 | ED PDOC ---
Arrival/HPI - General Time Seen by Provider: 12/20/17 22:31 Historian: Patient - History of Present Illness Narrative History of Present Illness (Text): 12/20/17 22:34 An 87 year old male, whose past medical history includes COPD, CHF, and dementia, presents to the emergency department with a complaint of low hemoglobin. Discussed case with Janene at [facility]. Patient pulled out his sol 2 days ago. Per transfer documents pt has been retaining urine and has an appointment w/ urology: Dr. Hein. He was urinating red blood which resolved. The patient was seen by Dr. Rivas sent to the emergency department for low hemoglobin. No dark or bloody stool. Per RN at [facility] pt has been voiding well, without blood in the urine after sol removal. The patient denies fevers, chills, headache, dizziness, chest pain, shortness of breath, dyspnea on e xertion, cough, sore throat, nausea, vomiting, diarrhea, back pain, neck pain, bowel changes, trauma/injury, or any other complaints. Time/Duration: Prior to Arrival Symptom Onset: Sudden Symptom Course: Unchanged Activities at Onset: Rest, Light Context: Home ([facility]) Past Medical History - Provider Review Nursing Documentation Reviewed: Yes - Cardiac Hx Cardiac Disorders: Yes Hx Congestive Heart Failure: Yes Hx Hypertension: Yes - Pulmonary Hx Chronic Obstructive Pulmonary Disease (COPD): Yes - Neurological Hx Neurological Disorder: Yes Hx Dementia: Yes Other/Comment: As per daughter, pt has mild dementia. - HEENT Hx HEENT Disorder: No - Renal Hx Renal Failure: Yes - Endocrine/Metabolic Hx Endocrine Disorders: No - Hematological/Oncological Hx Blood Disorders: Yes Hx Anemia: Yes Other/Comment: Had blood transfusions for anemia - Integumentary Hx Dermatological Disorder: No - Musculoskeletal/Rheumatological Hx Musculoskeletal Disorders: Yes Hx Falls: Yes - Gastrointestinal Hx Gastrointestinal Disorders: Yes Other/Comment: Gastritis - Genitourinary/Gynecological Hx Genitourinary Disorders: No - Psychiatric Hx Psychophysiologic Disorder: No Hx Substance Use: No - Surgical History Hx Coronary Stent: Yes Other/Comment: CABG, coronary stent - Anesthesia Hx Anesthesia: Yes Hx Anesthesia Reactions: No Hx Malignant Hyperthermia: No - Suicidal Assessment Feels Threatened In Home Enviroment: No Family/Social History - Physician Review Nursing Documentation Reviewed: Yes Family/Social History: No Known Family HX Smoking Status: Current Some Days Smoker Hx Alcohol Use: No Hx Substance Use: No Allergies/Home Meds Allergies/Adverse Reactions: Allergies No Known Allergies Allergy (Verified 04/11/17 19:07) Home Medications: Home Meds Medication Instructions Recorded Confirmed RX: Aspirin [Aspirin Chewable] 1 tab PO DAILY 11/08/16 12/21/17 RX: Pantoprazole Sodium [Protonix] 1 tab PO DAILY 11/08/16 12/21/17 Acetaminophen [Tylenol 325mg tab] 650 mg PO Q4 PRN 12/21/17 12/21/17 Fluticasone/Vilanterol 100/25 1 puff INH DAILY 12/21/17 12/21/17 [Breo Ellipta 100-25 MCG INH] Furosemide [Lasix] 40 mg PO BID 12/21/17 12/21/17 Gabapentin [Neurontin] 300 mg PO BID 12/21/17 12/21/17 Ipratropium/Albuterol Sulfate 3 ml IH Q4 PRN 12/21/17 12/21/17 [Iprat-Albut 0.5-3(2.5) mg/3 ml] Levothyroxine Sodium [Levoxyl] 25 mcg PO DAILY 12/21/17 12/21/17 Lorazepam [Ativan] 1 mg PO Q12 PRN 12/21/17 12/21/17 Montelukast Sodium [Singulair] 10 mg PO HS 12/21/17 12/21/17 RX: Atorvastatin Calcium 40 mg PO HS 12/21/17 12/21/17 RX: Lisinopril [Zestril] 2.5 mg PO DAILY 12/21/17 12/21/17 RX: Memantine HCl 10 mg PO DAILY 12/21/17 12/21/17 RX: Metoprolol Tartrate [Lopressor] 50 mg PO BID 12/21/17 12/21/17 RX: Spironolactone [Aldactone] 25 mg PO DAILY 12/21/17 12/21/17 RX: hydrALAZINE [Apresoline] 50 mg PO BID 12/21/17 12/21/17 Tamsulosin [Flomax] 0.4 mg PO DAILY 12/21/17 12/21/17 Review of Systems - Physician Review All systems were reviewed & negative as marked: Yes - Review of Systems Constitutional: absent: Fevers ENT: absent: Sore Throat Respiratory: absent: SOB, Cough Cardiovascular: absent: Chest Pain, KU Gastrointestinal: absent: Stool Changes, Diarrhea, Nausea, Vomiting Musculoskeletal: absent: Back Pain, Neck Pain Neurological: absent: Headache, Dizziness Physical Exam Appearance: Positive for: Well-Appearing, Non-Toxic, Comfortable Pain Distress: None Mental Status: Positive for: Alert and Oriented X 3 - Systems Exam Head: Present: Atraumatic, Normocephalic Pupils: Present: PERRL Extroacular Muscles: Present: EOMI Conjunctiva: Present: Normal Mouth: Present: Moist Mucous Membranes Neck: Present: Normal Range of Motion Respiratory/Chest: Present: Clear to Auscultation, Good Air Exchange, Other (Sternotomy scar.). No: Respiratory Distress, Accessory Muscle Use Cardiovascular: Present: Regular Rate and Rhythm, Normal S1, S2. No: Murmurs Abdomen: No: Tenderness, Distention, Peritoneal Signs Back: Present: Normal Inspection Upper Extremity: Present: Normal Inspection. No: Cyanosis, Edema Lower Extremity: Present: Edema (+2 lower extremity edema) Neurological: Present: GCS=15, CN II-XII Intact, Speech Normal Skin: Present: Warm, Dry, Normal Color. No: Rashes Psychiatric: Present: Alert Medical Decision Making ED Course and Treatment: 12/20/17 22:36 Impression: A year old male with a complaint of abdominal pain brought into the emergency department by EMS after pulling out his sol 2 days ago. Anemic to 6.7. Likely retaining urine vs GI bleed. No trauma. Plan: -- EKG -- Chest X-ray -- Labs -- Urinalysis -- Reassess and disposition Prior Visits: Notes and results from previous visits were reviewed. Progress Notes: 12/20/17 22:37: Case discussed in detail with Dr. Rivas. EKG: Ordered, reviewed, and independently interpreted the EKG. Rate : 88 BPM Rhythm : NSR Interpretation : RBBB. No STEMI Comparison : EKG on 04/11/17 shows RBBB. 12/21/17 00:33 Consent given from family for blood transfusion. guaic negative troponin mildly elevated, given anemia however, low hgb, and retaining likely non cardiac in nature Elevated Cr likely 2/2 urinary obstruction elevated BNP And b/l edema likely 2/2 urinary obstruction Bladder scan w/ 900 cc fluid Sol placed by RN w/ drainage of 1.3L- kelsi urine without clots. 12/21/17 00:49: Case discussed in detail with Dr. Rivas who accepts patient to her service. Pt has a hx of anemia w/ out GI Bleed. We are to consult Cardiology, Nephrology and Urology. Orders placed. 12/21/17 01:45: Case discussed in detail with Dr. Langford: obstruction resolved - Lab Interpretations I have reviewed the lab results: Yes - EKG Interpretation Interpreted by ED Physician: Yes Type: 12 lead EKG - Scribe Statement The provider has reviewed the documentation as recorded by the Scribe Arlet Capone Provider Scribe Attestation: All medical record entries made by the Scribe were at my direction and personally dictated by me. I have reviewed the chart and agree that the record accurately reflects my personal performance of the history, physical exam, medical decision making, and the department course for this patient. I have also personally directed, reviewed, and agree with the discharge instructions and disposition. Disposition/Present on Arrival - Present on Arrival Any Indicators Present on Arrival: No History of DVT/PE: No History of Uncontrolled Diabetes: No Urinary Catheter: No History Surgical Site Infection Following: None - Disposition Have Diagnosis and Disposition been Completed?: Yes Diagnosis: UZAIR (acute kidney injury), Urinary obstruction, Anemia Disposition: HOSPITALIZED Disposition Time: 01:00 Patient Plan: Admission Patient Problems: Current Active Problems Problem Status Onset UZAIR (acute kidney injury) Acute Urinary obstruction Acute Anemia Chronic Condition: GOOD
[2017-12-20 22:44] VITALS: BMI 23.7
[2017-12-20 23:10] LABS: BASO # 0.05 K/mm3 (0.0-2.0); BASO % 0.9 % (0.0-3.0); EOS # 0.1 (0.0-0.7); EOS % 1.8 % (1.5-5.0); GRAN # 4.27 (1.4-6.5); GRAN % 76.2 % (50.0-68.0); LYMPH # 0.6 (1.2-3.4); LYMPH % 10.9 % (22.0-35.0); MEAN CELL VOLUME 79.9 fl (80.0-105.0); MEAN CORPUSCULAR HEMOGLOBIN 25.8 pg (25.0-35.0); MEAN CORPUSCULAR HGB CONC 32.2 g/dl (31.0-37.0); MEAN PLATELET VOLUME 9.2 fl (7.0-11.0); MONO # 0.6 (0.1-0.6); MONO % 10.2 % (1.0-6.0); RBC 2.64 10^6/uL (3.5-6.1); RED CELL DISTRIBUTION WIDTH 18.7 % (11.5-14.5); WHITE BLOOD COUNT 5.6 10^3/ul (4.5-11.0)
[2017-12-20 23:14] LABS: HEMOGLOBIN 6.8 g/dL (14.0-18.0)
[2017-12-20 23:38] LABS: ALBUMIN 3.6 g/dL (3.0-4.8); TROPONIN I 0.12 ng/mL
[2017-12-21 02:11] LABS: PH,URINE 6.5 (4.7-8.0); URINE BILIRUBIN NEGATIVE (NEGATIVE); URINE BLOOD MODERATE (NEGATIVE); URINE GLUCOSE (UA) NEGATIVE (NEGATIVE); URINE LEUKOCYTE ESTERASE TRACE Leu/uL (NEGATIVE); URINE PROTEIN 30 mg/dL (<30 mg/dL); URINE UROBILINOGEN 0.2 E.U./dL (<1 E.U./dL)
[2017-12-21 02:13] LABS: URINE APPEARANCE SL CLOUDY (CLEAR); URINE COLOR YELLOW (YELLOW)
[2017-12-21 02:33] LABS: URINE BACTERIA RARE (NEG); URINE EPITHELIAL CELLS 0 - 2 /hpf (0-5); URINE RBC 15 - 20 /hpf (0-2)
[2017-12-21] MEDS ORDERED: Sod Polystyrene Sulf 15 gm/60 ml Susp PO ONE (07:28)
[2017-12-21 08:33] LABS: HEMOGLOBIN 7.2 g/dL (14.0-18.0); MEAN CELL VOLUME 79.7 fl (80.0-105.0); MEAN CORPUSCULAR HEMOGLOBIN 26.6 pg (25.0-35.0); MEAN CORPUSCULAR HGB CONC 33.3 g/dl (31.0-37.0); MEAN PLATELET VOLUME 8.5 fl (7.0-11.0); RBC 2.71 10^6/uL (3.5-6.1); WHITE BLOOD COUNT 5.4 10^3/ul (4.5-11.0)
[2017-12-21 08:42] LABS: IRON 41 ug/dL (45-180)
[2017-12-21 08:52] LABS: % IRON SATURATION 13 % (20-55); ALBUMIN 3.4 g/dL (3.0-4.8); CALCIUM 8.8 mg/dL (8.4-10.5); TOTAL IRON BINDING CAPACITY 305 ug/dL (261-462)
--- NOTE | 2017-12-21 09:42 | RAD ---
Date of service: 12/21/2017 HISTORY: ams COMPARISON: 04/11/2017 FINDINGS: LUNGS: No active pulmonary disease. PLEURA: No significant pleural effusion identified, no pneumothorax apparent. CARDIOVASCULAR: Moderate cardiomegaly and mild vascular congestion OSSEOUS STRUCTURES: Sternal wires VISUALIZED UPPER ABDOMEN: Normal. OTHER FINDINGS: Pacemaker IMPRESSION: Moderate cardiomegaly and mild vascular congestion
--- NOTE | 2017-12-21 10:07 | US ---
Date of service: 12/21/2017 PROCEDURE: Ultrasound of the Kidneys HISTORY: ARF COMPARISON: None available. TECHNIQUE: Sonogram of the kidneys. FINDINGS: Examination limited by patient condition. RIGHT KIDNEY: Measures: 12.5 x 5.9 x 5.6 cm. No obstructing calculus or hydronephrosis identified. LEFT KIDNEY: Measures: 10.5 x 5.9 x 4.7 cm. No obstructing calculus or hydronephrosis. 1.7 x 1.2 x 1.6 cm left midpole and 1.0 x 0.7 x 0.8 cm left mid to lower pole renal cyst. OTHER FINDINGS: None. IMPRESSION: Limited study. Left renal cysts as above.
[2017-12-21] MEDS: Dextrose 5%/0.9% NS 1,000 ML IV SCH (10:51)
--- NOTE | 2017-12-21 11:01 | CP.PCM.CON ---
<Isaura Hearn - Last Filed: 12/21/17 12:53> History of Present Illness - History of Present Illness History of Present Illness: Nephrology Consult Note for Nisa Mitchell PGY3 This is an 87yo male with past medical history of HTN, CHF, CAD s/p CABG, iron deficiency anemia, CKD stage IV, COPD, dementia who came from [facility] because patient pulled sol in the intermediate 2 days ago. Patient has dementia and is very confused upon interview. History was obtained through previous records. He was having a lot of blood tinged urine so he was sent to ED. Patient was denied chest pain, shortness of breath, nausea/vomiting/diarrhea, fever/chills, numbness/tingling. ROS was limited, but patient answered yes and no to some questions. Past medical history: HTN, CHF, CAD s/p CABG, iron deficiency anemia, CKD stage IV, COPD, dementia Past surgical history: CABG, AICD Home meds: As per MAR Allergies: NKDA Social history: No EtoH,or drug use. Former tobacco abuse. Came from intermediate Family history: unobtainable Review of Systems - Review of Systems Systems not reviewed;Unavailable: Dementia All systems: reviewed and no additional remarkable complaints except Review of Systems: 12 point ROS reviewed as per HPI and is otherwise negative Past Patient History - Past Medical History & Family History Past Medical History?: Yes - Past Social History Smoking Status: Former Smoker - CARDIAC Hx Cardiac Disorders: Yes Hx Congestive Heart Failure: Yes Hx Hypertension: Yes - PULMONARY Hx Chronic Obstructive Pulmonary Disease (COPD): Yes - NEUROLOGICAL Hx Neurological Disorder: Yes Hx Dementia: Yes Other/Comment: As per daughter, pt has mild dementia. - HEENT Hx HEENT Problems: No - RENAL Hx Renal Failure: Yes - ENDOCRINE/METABOLIC Hx Endocrine Disorders: No - HEMATOLOGICAL/ONCOLOGICAL Hx Blood Disorders: Yes Hx Anemia: Yes Other/Comment: Had blood transfusions for anemia - INTEGUMENTARY Hx Dermatological Problems: No - MUSCULOSKELETAL/RHEUMATOLOGICAL Hx Musculoskeletal Disorders: Yes Hx Falls: Yes - GASTROINTESTINAL Hx Gastrointestinal Disorders: Yes Other/Comment: Gastritis - GENITOURINARY/GYNECOLOGICAL Hx Genitourinary Disorders: No - PSYCHIATRIC Hx Psychophysiologic Disorder: No - SURGICAL HISTORY Hx Coronary Stent: Yes Other/Comment: CABG, coronary stent - ANESTHESIA Hx Anesthesia: Yes Hx Anesthesia Reactions: No Hx Malignant Hyperthermia: No Meds Allergies/Adverse Reactions: Allergies Allergy/AdvReac Type Severity Reaction Status Date / Time No Known Allergies Allergy Verified 04/11/17 19:07 - Medications Medications: Current Medications Aspirin (Aspirin Chewable) 81 mg PO DAILY PENDING SALE TO [facility] Atorvastatin Calcium (Lipitor) 40 mg PO HS MARIUSZ Gabapentin (Neurontin) 300 mg PO BID MARIUSZ; Protocol Hydralazine HCl (Apresoline) 10 mg PO QID PRN PRN Reason: for SBP>160 Dextrose/Sodium Chloride (Dextrose 5%/0.9% Ns 1000 Ml) 1,000 mls @ 75 mls/hr IV .[id number] MARIUSZ Stop: 12/22/17 10:09 Last Admin: 12/21/17 10:51 Dose: 75 mls/hr Levothyroxine Sodium (Synthroid) 25 mcg PO 0600 MARIUSZ Memantine (Namenda) 10 mg PO DAILY PENDING SALE TO [facility] Montelukast Sodium (Singulair) 10 mg PO HS PENDING SALE TO [facility] Nicotine (Nicoderm Cq) 1 patch TD DAILY PENDING SALE TO [facility] Pantoprazole Sodium (Protonix Ec Tab) 20 mg PO 0600 MARIUSZ Tamsulosin HCl (Flomax) 0.4 mg PO DAILY PENDING SALE TO [facility] Physical Exam - Constitutional Appears: No Acute Distress - Head Exam Head Exam: ATRAUMATIC, NORMAL INSPECTION, NORMOCEPHALIC - Eye Exam Eye Exam: Normal appearance, PERRL Pupil Exam: NORMAL ACCOMODATION - ENT Exam ENT Exam: Mucous Membranes Dry - Respiratory Exam Respiratory Exam: Clear to Auscultation Bilateral, NORMAL BREATHING PATTERN. a bsent: Rales, Rhonchi, Wheezes - Cardiovascular Exam Cardiovascular Exam: REGULAR RHYTHM, +S1, +S2, Systolic Murmur. absent: Gallop, Rubs - GI/Abdominal Exam GI & Abdominal Exam: Normal Bowel Sounds, Soft. absent: Mass, Rebound, Tenderness - Extremities Exam Extremities exam: Positive for: normal inspection. Negative for: calf tenderness, pedal edema - Neurological Exam Neurological exam: Alert, CN II-XII Intact - Skin Skin Exam: Dry, Warm Results - Vital Signs Recent Vital Signs: Last Vital Signs Temp 97.6 F 12/21/17 07:10 Pulse 75 12/21/17 07:10 Resp 20 12/21/17 07:10 BP 135/49 L 12/21/17 07:10 Pulse Ox 99 12/21/17 06:00 - Labs Result Diagrams: 12/21/17 08:20 12/21/17 08:20 Labs: Laboratory Results - last 24 hr 12/20/17 12/20/17 12/20/17 23:01 23:01 23:26 WBC 5.6 RBC 2.64 L Hgb 6.8 L* Hct 21.1 L MCV 79.9 L D MCH 25.8 MCHC 32.2 RDW 18.7 H Plt Count 222 MPV 9.2 Gran % 76.2 H Lymph % (Auto) 10.9 L [place] % (Auto) 10.2 H Eos % (Auto) 1.8 Baso % (Auto) 0.9 Gran # 4.27 Lymph # (Auto) 0.6 L [place] # (Auto) 0.6 Eos # (Auto) 0.1 Baso # (Auto) 0.05 Sodium 130 L Potassium 5.8 H* D Chloride 95 L Carbon Dioxide 21 Anion Gap 20 BUN 68 H Creatinine 5.2 H Est GFR ( Amer) 13 Est GFR (Non-Af Amer) 10 Random Glucose 110 Calcium 9.0 Magnesium 2.4 H Iron TIBC % Saturation Total Bilirubin 0.4 AST 27 ALT 24 Alkaline Phosphatase 116 Troponin I 0.12 D NT-Pro-B Natriuret Pep 08839 H Total Protein 7.2 Albumin 3.6 Globulin 3.6 Albumin/Globulin Ratio 1.0 L Urine Color Urine Appearance Urine pH Ur Specific [place] Urine Protein Urine Glucose (UA) Urine Ketones Urine Blood Urine Nitrate Urine Bilirubin Urine Urobilinogen Ur Leukocyte Esterase Urine RBC Urine WBC Ur Epithelial Cells Urine Bacteria Blood Type O POSITIVE Antibody Screen Negative Crossmatch See Detail BBK History Checked Patient has bt 12/21/17 12/21/17 12/21/17 01:25 08:20 08:20 WBC RBC Hgb Hct MCV MCH MCHC RDW Plt Count MPV Gran % Lymph % (Auto) [place] % (Auto) Eos % (Auto) Baso % (Auto) Gran # Lymph # (Auto) [place] # (Auto) Eos # (Auto) Baso # (Auto) Sodium 132 Potassium 5.0 Chloride 97 L Carbon Dioxide 24 Anion Gap 16 BUN 67 H Creatinine 5.2 H Est GFR ( Amer) 13 Est GFR (Non-Af Amer) 10 Random Glucose 88 Calcium 8.8 Magnesium Iron 41 L TIBC 305 % Saturation 13 L Total Bilirubin 0.3 AST 34 ALT 21 Alkaline Phosphatase 118 Troponin I NT-Pro-B Natriuret Pep Total Protein 6.8 Albumin 3.4 Globulin 3.5 Albumin/Globulin Ratio 1.0 L Urine Color Yellow Urine Appearance Sl cloudy Urine pH 6.5 Ur Specific [place] 1.015 Urine Protein 30 H Urine Glucose (UA) Negative Urine Ketones Negative Urine Blood Moderate H Urine Nitrate Negative Urine Bilirubin Negative Urine Urobilinogen 0.2 Ur Leukocyte Esterase Trace H Urine RBC 15 - 20 Urine WBC 1 - 3 Ur Epithelial Cells 0 - 2 Urine Bacteria Rare Blood Type Antibody Screen Crossmatch BBK History Checked 12/21/17 08:20 WBC 5.4 RBC 2.71 L Hgb 7.2 L Hct 21.6 L MCV 79.7 L MCH 26.6 MCHC 33.3 RDW 18.0 H Plt Count 172 MPV 8.5 Gran % Lymph % (Auto) [place] % (Auto) Eos % (Auto) Baso % (Auto) Gran # Lymph # (Auto) [place] # (Auto) Eos # (Auto) Baso # (Auto) Sodium Potassium Chloride Carbon Dioxide Anion Gap BUN Creatinine Est GFR ( Amer) Est GFR (Non-Af Amer) Random Glucose Calcium Magnesium Iron TIBC % Saturation Total Bilirubin AST ALT Alkaline Phosphatase Troponin I NT-Pro-B Natriuret Pep Total Protein Albumin Globulin Albumin/Globulin Ratio Urine Color Urine Appearance Urine pH Ur Specific [place] Urine Protein Urine Glucose (UA) Urine Ketones Urine Blood Urine Nitrate Urine Bilirubin Urine Urobilinogen Ur Leukocyte Esterase Urine RBC Urine WBC Ur Epithelial Cells Urine Bacteria Blood Type Antibody Screen Crossmatch BBK History Checked Assessment & Plan - Assessment and Plan (Free Text) Assessment: 1. UZAIR on CKD stage IV - secondary to dehydration and bleed 2. Iron deficiency Anemia - secondary to hematuria from pulling out sol 3. Hyperkalemia - secondary to UZAIR 4. HTN 5. CHF 6. CAD s/p CABG 7. COPD 8. Dementia Plan: Labs and imaging reviewed. Patient was given kayexalate in ED. Patient was transfused 1U PRBC. Would await repeat K before giving second unit of blood because blood contains potassium. If repeat K normal, can give second unit of PRBC. Patient is on D5/0.5NS for dehydration. No need for acute renal replacement therapy at this time. Monitor I&O. Urology on consult. Renal US did not show any evidence of acute abnormalities. Will monitor H/H as well as Cr and electrolytes. Will check PTH level. Case seen, discussed and reviewed with Dr. Andrade. Nisa Hearn PGY3 - Date & Time Date: 12/21/17 Time: 13:21 <Spencer Andrade - Last Filed: 12/23/17 14:37> Meds - Medications Medications: Current Medications Albuterol/Ipratropium (Duoneb 3 Mg/0.5 Mg (3 Ml) Ud) 3 ml IH [id number] PRN PRN Reason: Shortness of Breath Last Admin: 12/23/17 08:00 Dose: 3 ml Arformoterol Tartrate (Brovana) 15 mcg IH [id number] PENDING SALE TO [facility] Last Admin: 12/23/17 08:00 Dose: 15 mcg Aspirin (Aspirin Chewable) 81 mg PO DAILY PENDING SALE TO [facility] Last Admin: 12/23/17 09:38 Dose: 81 mg Atorvastatin Calcium (Lipitor) 40 mg PO HS PENDING SALE TO [facility] Last Admin: 12/22/17 21:28 Dose: 40 mg Budesonide (Pulmicort Respules) 0.5 mg IH [id number] PENDING SALE TO [facility] Last Admin: 12/23/17 08:00 Dose: 0.5 mg Gabapentin (Neurontin) 300 mg PO BID PENDING SALE TO [facility]; Protocol Last Admin: 12/23/17 09:38 Dose: 300 mg Hydralazine HCl (Apresoline) 10 mg PO QID PRN PRN Reason: for SBP>160 Sodium Chloride (Sodium Chloride 0.9%) 1,000 mls @ 50 mls/hr IV .Q20H PENDING SALE TO [facility] Stop: 12/24/17 23:59 Last Admin: 12/22/17 14:46 Dose: 50 mls/hr Levothyroxine Sodium (Synthroid) 25 mcg PO 0600 PENDING SALE TO [facility] Last Admin: 12/23/17 05:14 Dose: 25 mcg Memantine (Namenda) 10 mg PO DAILY PENDING SALE TO [facility] Last Admin: 12/23/17 09:38 Dose: 10 mg Montelukast Sodium (Singulair) 10 mg PO HS PENDING SALE TO [facility] Last Admin: 12/22/17 21:28 Dose: 10 mg Nicotine (Nicoderm Cq) 1 patch TD DAILY PENDING SALE TO [facility] Last Admin: 12/23/17 09:38 Dose: 1 patch Pantoprazole Sodium (Protonix Ec Tab) 20 mg PO 0600 PENDING SALE TO [facility] Last Admin: 12/23/17 05:14 Dose: 20 mg Tamsulosin HCl (Flomax) 0.4 mg PO DAILY PENDING SALE TO [facility] Last Admin: 12/23/17 09:38 Dose: 0.4 mg Results - Vital Signs Recent Vital Signs: Last Vital Signs Temp 97.4 F L 12/23/17 12:00 Pulse 91 H 12/23/17 12:00 Resp 20 12/23/17 12:00 BP 156/67 H 12/23/17 12:00 Pulse Ox 95 12/23/17 12:00 - Labs Result Diagrams: 12/23/17 07:00 12/23/17 07:00 Labs: Laboratory Results - last 24 hr 12/23/17 12/23/17 07:00 07:00 WBC 6.1 D RBC 2.74 L Hgb 7.3 L Hct 22.4 L MCV 81.8 MCH 26.6 MCHC 32.6 RDW 18.1 H Plt Count 169 MPV 9.3 Sodium 138 Potassium 4.7 Chloride 106 Carbon Dioxide 25 Anion Gap 12 BUN 58 H Creatinine 3.6 H Est GFR ( Amer) 19 Est GFR (Non-Af Amer) 16 Random Glucose 93 Calcium 9.0 Total Bilirubin 0.4 AST 34 ALT 23 Alkaline Phosphatase 79 Total Protein 5.9 Albumin 2.8 L Globulin 3.2 Albumin/Globulin Ratio 0.9 L Assessment & Plan - Assessment and Plan (Free Text) Plan: Pt seen and examined by me. I have reviewed the note by the medical charge entry specialist. The case was discussed and reviewed with the resident. I reviewed the medications and labs. Pt with UZAIR and was started on IVF. Pt with anemia and was given transfusion. Renal US did not show acute abnormalities. Check Iron studies and PTH. He does have underlying CKD and is at risk of UZAIR. No need for HD at this point.
--- NOTE | 2017-12-21 13:57 | CARD ---
APPROVED REPORT Date of service: 12/20/2017 EKG Measurement Heart [id number] <Conclusion> Sinus rhythm with 1st degree AV block Right bundle branch block Left anterior fascicular block Bifascicular block Left ventricular hypertrophy with repolarization abnormality Possible Lateral infarct, age undetermined Abnormal ECG
--- NOTE | 2017-12-21 15:23 | CARD ---
APPROVED REPORT Date of service: 12/21/2017 EXAM: Two-dimensional and M-mode echocardiogram with Doppler and color Doppler. INDICATION Congestive Heart Failure 2D DIMENSIONS Left Atrium (2D)4.3 (1.6-4.0cm)IVSd1.4 (0.7-1.1cm) LVDd5.5 (3.9-5.9cm)PWd1.6 (0.7-1.1cm) M-Mode DIMENSIONS Aortic Root3.80 (2.2-3.7cm)Aortic Cusp Exc.1.80 (1.5-2.0cm) Aortic Valve AoV Peak Bcsesmva102.0cm/Claudette Peak GR.12mmHg Mitral Valve MV E Riwnqvfx913.0cm/sMV A Lhvuskko131.0cm/sMV XFL63zw E/A ratio1.1MVA (PHT)2.62cm2 TDI Lateral E' Peak V5.85cm/sE/Lateral E'28.7E/Medial E'0.0 Pulmonary Valve PV Peak Xdgxwmct10.8cm/sPV Peak Grad.3mmHg Tricuspid Valve TR Peak Kewbmgyr460tw/sRAP GWARCSOQ72grLgHQ Peak Gr.59mmHg [id number] LEFT VENTRICLE The left ventricle is normal size. The left ventricular function is normal. The left ventricular ejection fraction is within the normal range.Ej.Fr: 55%. RIGHT VENTRICLE The right ventricle is normal size. The right ventricular systolic function is normal. ATRIA The left atrium is borderline dilated. The right atrium is borderline dilated. AORTIC VALVE The aortic valve is normal in structure. There is trace aortic regurgitation. MITRAL VALVE The mitral valve is normal in structure. Mitral regurgitation is mild. TRICUSPID VALVE The tricuspid valve is normal in structure. PERICARDIAL EFFUSION There is no pericardial effusion. <Conclusion> The left ventricle is normal size. The left ventricular ejection fraction is within the normal range.Ej.Fr: 55%. The right ventricle is normal size. The right ventricular systolic function is normal. The left atrium is borderline dilated. The right atrium is borderline dilated. The aortic valve is normal in structure. There is trace aortic regurgitation. The mitral valve is normal in structure. Mitral regurgitation is mild. The tricuspid valve is normal in structure. There is no pericardial effusion.
[2017-12-21] MEDS: Budesonide 0.5 mg/2 ml Inhal Susp UD IH SCH (19:33)
[2017-12-21] MEDS: Arformoterol 15 mcg/2 ml Inh Sol IH SCH (19:33)
--- NOTE | 2017-12-21 22:48 | CON ---
DATE: 12/21/2017 REASON FOR CONSULTATION: Elevated BNP, rule our CHF. BRIEF CLINICAL HISTORY: This is an 87-year-old male, very poor historian, possibly dementia, COPD, CHF, admitted, brought by the family possibly complaint of abdominal pain. Patient is a resident of [facility], was sent there because of possible abdominal pain. Patient thinks he is in [place] and he walked into the [facility] himself, not oriented to the time, place and person. PAST MEDICAL HISTORY: Unable to give any history. Information obtained from the electronic medical record. Patient was seen by us on 11/09/2016. Apparently history of coronary artery disease, history of CHF, history of AICD placed in the past, and past history of CABG. Also history of GI bleeding and history of anemia in the past, history of coronary artery disease, CABG, according to the family in the previous consultation. History of gastritis, history of hypertension, hyperlipidemia, history of cardiomyopathy, and history of AICD, but currently patient is unable to give any detailed history. SOCIAL HISTORY: In the previous chart mentioned, patient was smoker at that time. Denies any history of alcohol abuse. ALLERGIES: ALLERGY TO NICODERM. CURRENT MEDICATIONS: Patient at [facility] was taking lisinopril 2.5 mg daily, Tylenol, Protonix, Singulair 10 mg daily, metoprolol tartrate 50 mg twice a day, levothyroxine 25 mcg daily, Lasix 40 mg twice a day, gabapentin, Flomax, atorvastatin 40 mg daily, Ativan 1 mg daily, spironolactone 25 mg daily and aspirin 1 tablet daily. PREVIOUS CARDIAC WORKUP: As follows, patient had an echocardiography done on 11/09/2016, that revealed moderately dilated ventricle, severe concentric LVH, systolic function severely impaired, akinetic inferior wall, [id number]-ov-eibaxktn mitral regurgitation, RV systolic pressure 24. Calculated ejection fraction 19% dated 11/09/2016 and calculated ejection fraction 20% read by Dr. Poon. EKG previous showed normal sinus, right bundle-branch block, left anterior hemiblock, bifascicular block. REVIEW OF SYSTEMS: As per HPI. Unable to give any detailed history because patient is demented. Patient has a 2 point Danii restraint as well as wrist restraint in both upper extremities. PHYSICAL EXAMINATION: VITAL SIGNS: Height of the patient 5 feet 11 inches, weight of the patient 170 pounds, body mass index 25 kg per sq m, heart rate 75, blood pressure 135/49. HEENT: PERRLA. Extraocular muscles intact. NECK: Supple. No carotid bruit or thyromegaly. CHEST: Clear to auscultation. HEART: S1 and S2 regular. ABDOMEN: Soft. EXTREMITIES: Clubbing and cyanosis negative. LABORATORY DATA: Blood workup as follows: WBC 5.4, hemoglobin 7.2, hematocrit 21.6, platelet count 172. Chemistry shows sodium 130, potassium 5, chloride 99, carbon dioxide 24, anion gap of 16, BUN 67, creatinine 5.2. BNP 14,100. EKG shows normal sinus, right bundle-branch, left anterior hemiblock, bifascicular block. Chest x-ray done yesterday, very poor penetration films, possible CHF but very under penetrated film, reviewed by me and official reading, moderate cardiomegaly, mild vascular changes read. IMPRESSION: An 87-year-old male with a past medical history significant for cardiomyopathy, ejection fraction 20% on last echo, coronary artery disease, coronary artery bypass grafting, automatic implantable cardioverter defibrillator in the past, admitted with acute kidney injury, severe anemia, dementia, hypertension, hyperlipidemia. RECOMMENDATIONS: I will start IV Lasix, consider 2 units of packed RBCs. We will follow. Overall patient's condition is critical. Long-term prognosis is guarded. We will follow with you. Avoid nephrotoxic medications. Avoid spironolactone to prevent hyperkalemia. Order was given for 2 units of packed RBC transfusion. We will wait till the transfusion is done and we will continue IV Lasix for now. We will hold aspirin also to prevent any bleed. We will follow with you. Thank you, Dr. Rivas, for providing us the opportunity in taking care of the patient, Faraz Zuñiga. Radha Woodward MD
--- NOTE | 2017-12-22 00:35 | HP ---
Patient is an 87-year-old male. Patient was seen and examined on the bedside on 12/21/2017, looking comfortable. CHIEF COMPLAINT: Swelling of the legs, shortness of breath. HISTORY OF PRESENT ILLNESS: Mr. Faraz Zuñiga is an 87-year-old male with past medical history of COPD, congestive heart failure, dementia, came to the Emergency Department from [facility] with the complaint of abdominal pain, shortness of breath, fatigue, tired. Patient pulled out his Mann catheter two days ago. He was urinating red blood and is now pink in color. The patient was seen by Dr. Cuadra and is sent to the Emergency Department as per discussion with me. The patient denies fevers, chills, headache, dizziness, chest pain, but having shortness of breath and dyspneic on exertion, coughing, sore throat, nausea, vomiting, diarrhea, back pain, neck pain. No trauma or injury. We admitted the patient post consulting Testing Lead and Urologist and [place] [facility]. PAST MEDICAL HISTORY: Congestive heart failure, hypertension, COPD, mild dementia, renal failure, anemia, history of blood transfusion, fall, coronary artery disease, CABG. FAMILY HISTORY: Father and mother, noncontributory. HABITS: Currently smoking heavily. Alcohol, no. Substance abuse, no. ALLERGIC: PATIENT NOT ALLERGIC WITH ANY MEDICATIONS. HOME MEDICATIONS: Aspirin, Neurontin, pantoprazole, senna, Zocor. REVIEW OF SYSTEMS: Patient was seen and examined at the bedside. No fever. No sore throat. Sometimes shortness of breath. No coughing. No chest pain, fever, or chills. No diarrhea, nausea, or vomiting. No neck pain, back pain. No dizziness or headache. Feeling fatigue and tired. PHYSICAL EXAMINATION: VITAL SIGNS: Temperature 97.5, pulse 77, blood pressure 147/59, respiratory rate 18. HEENT: Head: Normocephalic, atraumatic. Eyes: PERRLA. Extraocular muscles intact. Conjunctivae clear. Nose patent. Mucous membrane moist. NECK: Supple. No carotid bruit. No JVD or thyromegaly. CHEST: Bilaterally symmetrical. HEART: S1 and S2 positive. LUNGS: Clear to auscultation. ABDOMEN: Soft. Bowel sounds are present. No organomegaly. EXTREMITIES: Positive edema. No cyanosis. NEUROLOGIC: The patient is awake and alert. Follows simple commands. LABORATORY DATA: White blood cell 5.6; hemoglobin 6.8, after blood transfusion is 7.2; hematocrit 21.1; platelets 222. Sodium 130, repeat is 132; potassium 5.8, repeat is 5; chloride is 95; BUN 68; creatinine 5.2; magnesium 2.4. ASSESSMENT AND PLAN: Mr. Faraz Zuñiga is an 87-year-old male with severe anemia, status post blood transfusion, hyponatremia, hyperkalemia, hypochloremia, renal insufficiency, post obstructive uropathy, hypermagnesemia, iron deficiency, congestive heart failure, proteinuria, hematuria, urinary tract infection. Renal ultrasound, echocardiography done, results are pending. Acute kidney injury on chronic kidney disease stage IV secondary to dehydration, bleeding and post obstruction, hyperkalemia secondary to acute kidney injury, coronary artery disease, status post coronary artery bypass graft, chronic obstructive pulmonary disease, dementia. Patient is given Kayexalate. Blood transfusion is done. Repeat K is noted. We indicated we will get second unit of packed red blood cells. Patient on D5 NS for dehydration. Need for acute renal replacement therapy at this time. Monitoring ins and outs. Urologist and Testing Lead on the case. Monitoring H and H and electrolytes. Gastrointestinal and deep venous thrombosis prophylaxes. Discussion done with nursing staff. Physical therapy was on the bedside for bedside physical therapy. We will follow up. Irasema Rivas MD
[2017-12-22] MEDS: Dextrose 5%/0.9% NS 1,000 ML IV SCH (05:50)
[2017-12-22] MEDS: Levothyroxine 25 MCG TAB PO SCH (05:51)
[2017-12-22] MEDS: Pantoprazole 20 mg EC Tab PO SCH (05:51)
--- NOTE | 2017-12-22 06:24 | CP.PCM.PN ---
<Isaura Hearn - Last Filed: 12/22/17 10:51> Subjective - Date & Time of Evaluation Date of Evaluation: 12/22/17 Time of Evaluation: 07:00 - Subjective Subjective: Nephrology Progress Note for Nisa Mitchell PGY3 Patient seen and examined at bedside. As per nursing staff, there were no acute overnight events. Patient is pleasantly confused. He denies having any pain, chest pain, shortness of breath, nausea/vomiting/diarrhea, fever/chills. Objective - Vital Signs/Intake and Output Vital Signs (last 24 hours): Temp Pulse Resp BP Pulse Ox 97.8 F 76 20 121/53 L 96 12/22/17 00:00 12/22/17 02:00 12/22/17 00:00 12/22/17 00:00 12/22/17 00:00 Intake and Output: 12/21/17 12/22/17 18:59 06:59 Intake Total 685 775 Output Total 1800 Balance -1115 775 - Medications Medications: Current Medications Albuterol/Ipratropium (Duoneb 3 Mg/0.5 Mg (3 Ml) Ud) 3 ml IH [id number] PRN PRN Reason: Shortness of Breath Arformoterol Tartrate (Brovana) 15 mcg IH [id number] [facility] Last Admin: 12/21/17 19:33 Dose: 15 mcg Aspirin (Aspirin Chewable) 81 mg PO DAILY [facility] Last Admin: 12/21/17 11:11 Dose: Not Given Atorvastatin Calcium (Lipitor) 40 mg PO HS [facility] Last Admin: 12/21/17 22:43 Dose: 40 mg Budesonide (Pulmicort Respules) 0.5 mg IH [id number] [facility] Last Admin: 12/21/17 19:33 Dose: 0.5 mg Gabapentin (Neurontin) 300 mg PO BID [facility]; Protocol Last Admin: 12/21/17 18:26 Dose: 300 mg Hydralazine HCl (Apresoline) 10 mg PO QID PRN PRN Reason: for SBP>160 Dextrose/Sodium Chloride (Dextrose 5%/0.9% Ns 1000 Ml) 1,000 mls @ 75 mls/hr IV .[id number] [facility] Stop: 12/22/17 10:09 Last Admin: 12/22/17 05:50 Dose: 75 mls/hr Levothyroxine Sodium (Synthroid) 25 mcg PO 0600 [facility] Last Admin: 12/22/17 05:51 Dose: 25 mcg Memantine (Namenda) 10 mg PO DAILY [facility] Last Admin: 12/21/17 11:12 Dose: Not Given Montelukast Sodium (Singulair) 10 mg PO HS [facility] Last Admin: 12/21/17 22:43 Dose: 10 mg Nicotine (Nicoderm Cq) 1 patch TD DAILY [facility] Last Admin: 12/21/17 11:20 Dose: 1 patch Pantoprazole Sodium (Protonix Ec Tab) 20 mg PO 0600 [facility] Last Admin: 12/22/17 05:51 Dose: 20 mg Tamsulosin HCl (Flomax) 0.4 mg PO DAILY [facility] Last Admin: 12/21/17 11:11 Dose: Not Given - Labs Labs: 12/21/17 08:20 12/21/17 08:20 - Constitutional Appears: No Acute Distress, Confused - Head Exam Head Exam: ATRAUMATIC, NORMAL INSPECTION, NORMOCEPHALIC - Eye Exam Eye Exam: Normal appearance, PERRL Pupil Exam: NORMAL ACCOMODATION, PERRL - ENT Exam ENT Exam: Mucous Membranes Dry - Neck Exam Neck Exam: Full ROM, Normal Inspection. absent: Thyromegaly - Respiratory Exam Respiratory Exam: Clear to Ausculation Bilateral, NORMAL BREATHING PATTERN. absent: Rales, Rhonchi, Wheezes - Cardiovascular Exam Cardiovascular Exam: REGULAR RHYTHM, +S1, +S2, Murmur. absent: Gallop, Rubs - GI/Abdominal Exam GI & Abdominal Exam: Soft, Normal Bowel Sounds. absent: Tenderness, Mass, Rebound - Extremities Exam Extremities Exam: Pedal Edema. absent: Calf Tenderness - Neurological Exam Neurological Exam: Alert, Awake, CN II-XII Intact. absent: Oriented x3 - Psychiatric Exam Psychiatric exam: Normal Affect, Normal Mood - Skin Skin Exam: Dry, Warm Assessment and Plan - Assessment and Plan (Free Text) Assessment: 1. UZAIR on CKD stage IV - secondary to dehydration and bleed 2. Acute on chronic anemia - secondary to hematuria from pulling out sol - s/p 2U PRBC 3. Hematuria 4. Hypovolemia 5. Iron deficiency anemia 6. Hyperkalemia- resolved 7. Essential HTN Plan: Labs and imaging reviewed. Hgb is stable. Potassium is within normal range. Patient completed 2L of D5/0.5NS for hypovolemia. Kidney function slowly improving. No need for acute renal replacement at this time. Continue to monitor electrolytes and Creatinine as well as H/H. Venofer for iron deficiency anemia. Will monitor I&O. PTH is pending. Case seen, discussed and reviewed with Dr. Andrade. Nisa Hearn PGY3 <Spencer Andrade - Last Filed: 12/22/17 21:26> Objective - Vital Signs/Intake and Output Vital Signs (last 24 hours): Temp Pulse Resp BP Pulse Ox 98.7 F 83 17 144/58 L 100 12/22/17 18:00 12/22/17 18:00 12/22/17 18:00 12/22/17 18:00 12/22/17 18:00 Intake and Output: 12/22/17 12/23/17 18:59 06:59 Intake Total 780 Output Total 2600 Balance -1820 - Medications Medications: Current Medications Albuterol/Ipratropium (Duoneb 3 Mg/0.5 Mg (3 Ml) Ud) 3 ml IH [id number] PRN PRN Reason: Shortness of Breath Arformoterol Tartrate (Brovana) 15 mcg IH [id number] [facility] Last Admin: 12/22/17 19:17 Dose: 15 mcg Aspirin (Aspirin Chewable) 81 mg PO DAILY [facility] Last Admin: 12/22/17 09:52 Dose: 81 mg Atorvastatin Calcium (Lipitor) 40 mg PO HS [facility] Last Admin: 12/21/17 22:43 Dose: 40 mg Budesonide (Pulmicort Respules) 0.5 mg IH [id number] [facility] Last Admin: 12/22/17 19:17 Dose: 0.5 mg Gabapentin (Neurontin) 300 mg PO BID [facility]; Protocol Last Admin: 12/22/17 17:19 Dose: 300 mg Hydralazine HCl (Apresoline) 10 mg PO QID PRN PRN Reason: for SBP>160 Sodium Chloride (Sodium Chloride 0.9%) 1,000 mls @ 50 mls/hr IV .Q20H [facility] Stop: 12/23/17 23:59 Last Admin: 12/22/17 14:46 Dose: 50 mls/hr Levothyroxine Sodium (Synthroid) 25 mcg PO 0600 [facility] Last Admin: 12/22/17 05:51 Dose: 25 mcg Memantine (Namenda) 10 mg PO DAILY [facility] Last Admin: 12/22/17 09:52 Dose: 10 mg Montelukast Sodium (Singulair) 10 mg PO HS [facility] Last Admin: 12/21/17 22:43 Dose: 10 mg Nicotine (Nicoderm Cq) 1 patch TD DAILY [facility] Last Admin: 12/22/17 09:52 Dose: 1 patch Pantoprazole Sodium (Protonix Ec Tab) 20 mg PO 0600 [facility] Last Admin: 12/22/17 05:51 Dose: 20 mg Tamsulosin HCl (Flomax) 0.4 mg PO DAILY [facility] Last Admin: 12/22/17 09:52 Dose: 0.4 mg - Labs Labs: 12/22/17 06:30 12/22/17 06:30 Assessment and Plan - Assessment and Plan (Free Text) Plan: Pt seen and examined by me. I have reviewed the note by the medical billing and coding instructor. Th e case was discussed and reviewed with the resident. I reviewed the medications and labs. Pt with UZAIR that is improving. His H/H is improved after the blood transfusion. Pt's K is also better. He is on IVF that will be continued. No need for HD. Will likely need IV Iron for deg. PTH is ordered.
--- NOTE | 2017-12-22 06:50 | CON ---
DATE: 12/21/2017 PULMONARY PROGRESS NOTE REFERRING PHYSICIAN: Irasema Rivas MD REASON FOR CONSULTATION: Short of breath and cough. HISTORY OF PRESENT ILLNESS: An 87-year-old gentleman with past medical history significant for dementia, chronic obstructive lung disease, heart failure, brought into emergency room from [facility] with shortness of breath, anemia, also has a history of bladder outlet obstruction, had a Mann catheter recently was removed since then having an issue with urinating. There is no hemoptysis or emesis. No diarrhea or leg pain or leg swelling. PAST MEDICAL HISTORY: Chronic lung disease, congestive heart failure, dementia, bladder outlet obstruction. Also, has a history of renal failure, gastritis, history of coronary artery disease with coronary artery bypass surgery. FAMILY HISTORY: No significant cardiopulmonary disease reported. SOCIAL HISTORY: He is active smoker. Denies any alcohol use. ALLERGIES: NONE KNOWN. MEDICATIONS: He is on hydralazine 70 mg four times a day p.r.n., aspirin 81 mg daily, getting IV fluid D5 normal 75 mL/hour, DuoNeb every 4 hours p.r.n., Flomax 0.4 mg daily, Lipitor 1 mg daily, Namenda 10 mg daily, Neurontin 300 mg twice a day, Nicoderm patch daily, Protonix 20 mg daily, Singulair 10 mg daily, Synthroid 25 mcg daily. REVIEW OF SYSTEMS: No headache. No rhinitis. Has some shortness of breath. No chest pain. Difficulty urinating. No abdominal pain or dysuria, leg pain or leg swelling. PHYSICAL EXAMINATION: GENERAL: No acute distress. VITAL SIGNS: Temperature of 98, heart rate is 85. Respiratory is 20, blood pressure 137/85, pulse ox 99% on nasal cannula. HEENT: Moist mucous membrane. Crowded airway. Mallampati score is 4. NECK: Supple. No JVD. LUNGS: Have a few scattered rhonchi. HEART: S1 and S2. ABDOMEN: Soft, nontender, no organomegaly. EXTREMITIES: No edema. NEUROLOGIC: Awake and alert. Follows simple command, but confused. LABORATORY DATA: Shows hemoglobin 7.2, hematocrit 21.6, WBC 5.4, platelet is 172. Sodium 132, potassium 5, chloride 97, bicarbonate 24, BUN 67, creatinine 5.2, glucose 88, calcium 8.8, AST 34, ALT 21, alk phos is 118. Albumin is 3.4. Had echocardiogram done today which shows right ventricle systolic pressure is 69, LV ejection fraction of 55, trace aortic mitral valve is normal. Chest x-ray shows moderate cardiomegaly with mild vascular congestion. IMPRESSION AND PLAN: Chronic obstructive lung disease, cardiomyopathy, chronic diastolic dysfunction with pulmonary hypertension, coronary artery disease, hypertension, hyperlipidemia, smoker, history of iron-deficiency anemia, renal failure. I agree with the present management. Continue bronchodilator. Keep head at 45 degrees. Diuretics. We will discontinue IV fluid. Sleep apnea precaution. Careful with sedation. Fall precaution. We will send stool guaiac. May benefit from bone marrow stimulant. Follow up labs in the morning. Thank you and we will follow with you. Radha Vail MD
[2017-12-22 07:23] LABS: IRON 78 ug/dL (45-180)
[2017-12-22 07:26] LABS: BASO # 0.03 K/mm3 (0.0-2.0); BASO % 0.7 % (0.0-3.0); EOS # 0.1 (0.0-0.7); EOS % 2.6 % (1.5-5.0); GRAN # 2.93 (1.4-6.5); GRAN % 63.9 % (50.0-68.0); HEMOGLOBIN 7.8 g/dL (14.0-18.0); LYMPH # 0.5 (1.2-3.4); LYMPH % 10.5 % (22.0-35.0); MEAN CELL VOLUME 80.7 fl (80.0-105.0); MEAN CORPUSCULAR HEMOGLOBIN 26.4 pg (25.0-35.0); MEAN CORPUSCULAR HGB CONC 32.8 g/dl (31.0-37.0); MEAN PLATELET VOLUME 8.8 fl (7.0-11.0); MONO % 22.3 % (1.0-6.0); PLATELET COUNT 174 10^3/uL (120.0-450.0); RBC 2.95 10^6/uL (3.5-6.1); RED CELL DISTRIBUTION WIDTH 17.9 % (11.5-14.5); WHITE BLOOD COUNT 4.6 10^3/ul (4.5-11.0)
[2017-12-22 07:27] LABS: ALBUMIN 3.1 g/dL (3.0-4.8); ALT/SGPT 22 U/L (7-56); AST/SGOT 37 U/L (17-59); BLOOD UREA NITROGEN 64 mg/dL (7-21); CALCIUM 8.6 mg/dL (8.4-10.5); GFR NON-AFRICAN AMERICAN 13; HDL CHOLESTEROL 24 mg/dL (29-60)
[2017-12-22 07:33] LABS: % IRON SATURATION 28 % (20-55); TOTAL IRON BINDING CAPACITY 284 ug/dL (261-462)
[2017-12-22 07:55] LABS: LDL CHOLESTEROL < 30 mg/dL (0-129)
[2017-12-22] MEDS: Arformoterol 15 mcg/2 ml Inh Sol IH SCH ×2 (08:42→19:17)
[2017-12-22] MEDS: Budesonide 0.5 mg/2 ml Inhal Susp UD IH SCH ×2 (08:42→19:17)
--- NOTE | 2017-12-22 09:33 | CP.PCM.PN ---
Subjective - Date & Time of Evaluation Date of Evaluation: 12/22/17 Time of Evaluation: 06:15 - Subjective Subjective: Easily awaken, no distress, lying in bed Reason for consultation and follow up: Cardiac evaluation for elevated BNP, rule out congestive heart failure Seen and examined by me and Dr. Woodward Objective - Vital Signs/Intake and Output Vital Signs (last 24 hours): Temp Pulse Resp BP Pulse Ox 98.3 F 76 20 153/91 H 94 L 12/22/17 06:00 12/22/17 06:26 12/22/17 06:00 12/22/17 06:00 12/22/17 06:00 Intake and Output: 12/22/17 12/22/17 06:59 18:59 Intake Total 775 120 Output Total 1600 Balance 775 -1480 - Medications Medications: Current Medications Albuterol/Ipratropium (Duoneb 3 Mg/0.5 Mg (3 Ml) Ud) 3 ml IH [id number] PRN PRN Reason: Shortness of Breath Arformoterol Tartrate (Brovana) 15 mcg IH [id number] [facility] Last Admin: 12/22/17 08:42 Dose: 15 mcg Aspirin (Aspirin Chewable) 81 mg PO DAILY [facility] Last Admin: 12/21/17 11:11 Dose: Not Given Atorvastatin Calcium (Lipitor) 40 mg PO HS [facility] Last Admin: 12/21/17 22:43 Dose: 40 mg Budesonide (Pulmicort Respules) 0.5 mg IH [id number] [facility] Last Admin: 12/22/17 08:42 Dose: 0.5 mg Gabapentin (Neurontin) 300 mg PO BID [facility]; Protocol Last Admin: 12/21/17 18:26 Dose: 300 mg Hydralazine HCl (Apresoline) 10 mg PO QID PRN PRN Reason: for SBP>160 Dextrose/Sodium Chloride (Dextrose 5%/0.9% Ns 1000 Ml) 1,000 mls @ 75 mls/hr IV .[id number] [facility] Stop: 12/22/17 10:09 Last Admin: 12/22/17 05:50 Dose: 75 mls/hr Levothyroxine Sodium (Synthroid) 25 mcg PO 0600 [facility] Last Admin: 12/22/17 05:51 Dose: 25 mcg Memantine (Namenda) 10 mg PO DAILY [facility] Last Admin: 12/21/17 11:12 Dose: Not Given Montelukast Sodium (Singulair) 10 mg PO HS [facility] Last Admin: 12/21/17 22:43 Dose: 10 mg Nicotine (Nicoderm Cq) 1 patch TD DAILY [facility] Last Admin: 12/21/17 11:20 Dose: 1 patch Pantoprazole Sodium (Protonix Ec Tab) 20 mg PO 0600 [facility] Last Admin: 12/22/17 05:51 Dose: 20 mg Tamsulosin HCl (Flomax) 0.4 mg PO DAILY [facility] Last Admin: 12/21/17 11:11 Dose: Not Given - Labs Labs: 12/22/17 06:30 12/22/17 06:30 - Constitutional Appears: Non-toxic, No Acute Distress - Eye Exam Eye Exam: Normal appearance - ENT Exam ENT Exam: Mucous Membranes Moist - Respiratory Exam Respiratory Exam: Clear to Ausculation Bilateral, NORMAL BREATHING PATTERN - Cardiovascular Exam Cardiovascular Exam: REGULAR RHYTHM, +S1, +S2 Additional comments: Telemetry NSR 70's - GI/Abdominal Exam GI & Abdominal Exam: Soft, Normal Bowel Sounds - Neurological Exam Neurological Exam: Alert, Awake - Psychiatric Exam Psychiatric exam: Normal Affect - Skin Skin Exam: Dry, Normal Color, Warm Assessment and Plan - Assessment and Plan (Free Text) Assessment: An 87 year old male who was brought in from [facility] due to low hemoglobin.History of COPD,chronic diastolic CHF, hypertension, hyperlipidemia, dementia,anemia, coronary artery disease post CABG,cardiomyopathy, LVEF from ECHO 20%, AICD. Admitted for acute renal injury, severe anemia. Blood transfusion of PRBC given. Plan: Status post blood transfusion of PRBC Repeat H/H 7.8/23.8 Heart rate and blood pressure stable Denies chest pain or shortness of breath Continue current treatment Continue current medications Fall precaution Chart reviewed Will follow up Plan and treatment discussed with Dr. Woodward
[2017-12-22 09:51] LABS: ATYPICAL LYMPHOCYTE 1 % (0.0-0.0); EOSINOPHIL 1 % (0.0-3.0); LYMPHOCYTE 17 % (22.0-35.0); MONOCYTE 11 % (1.0-6.0); NEUTROPHIL 70 % (50.0-70.0)
[2017-12-22 09:52] LABS: ANISOCYTOSIS 1+; HYPOCHROMIA 2+; MICROCYTOSIS 1+; OVALOCYTES SLIGHT; PLATELET ESTIMATE NORMAL (NORMAL); POIKILOCYTOSIS SLIGHT; POLYCHROMASIA SLIGHT; TEAR DROP CELLS SLIGHT
[2017-12-22] MEDS ORDERED: Sodium Chloride 0.9% 1,000 ML IV SCH (11:15)
--- NOTE | 2017-12-22 11:40 | CP.PCM.PN ---
Subjective - Date & Time of Evaluation Date of Evaluation: 12/22/17 Time of Evaluation: 10:15 - Subjective Subjective: resting comfortable, no chest pain, no SOB Objective - Vital Signs/Intake and Output Vital Signs (last 24 hours): Temp Pulse Resp BP Pulse Ox 98.3 F 76 20 153/91 H 94 L 12/22/17 06:00 12/22/17 06:26 12/22/17 06:00 12/22/17 06:00 12/22/17 06:00 Intake and Output: 12/22/17 12/22/17 06:59 18:59 Intake Total 775 120 Output Total 1600 Balance 775 -1480 - Medications Medications: Current Medications Albuterol/Ipratropium (Duoneb 3 Mg/0.5 Mg (3 Ml) Ud) 3 ml IH [id number] PRN PRN Reason: Shortness of Breath Arformoterol Tartrate (Brovana) 15 mcg IH [id number] [facility] Last Admin: 12/22/17 08:42 Dose: 15 mcg Aspirin (Aspirin Chewable) 81 mg PO DAILY [facility] Last Admin: 12/22/17 09:52 Dose: 81 mg Atorvastatin Calcium (Lipitor) 40 mg PO HS [facility] Last Admin: 12/21/17 22:43 Dose: 40 mg Budesonide (Pulmicort Respules) 0.5 mg IH [id number] [facility] Last Admin: 12/22/17 08:42 Dose: 0.5 mg Gabapentin (Neurontin) 300 mg PO BID [facility]; Protocol Last Admin: 12/22/17 09:52 Dose: 300 mg Hydralazine HCl (Apresoline) 10 mg PO QID PRN PRN Reason: for SBP>160 Iron Sucrose 200 mg/ Sodium (Chloride) 110 mls @ 110 mls/hr IVPB ONCE ONE Stop: 12/22/17 12:02 Sodium Chloride (Sodium Chloride 0.9%) 1,000 mls @ 50 mls/hr IV .Q20H [facility] Stop: 12/23/17 23:59 Levothyroxine Sodium (Synthroid) 25 mcg PO 0600 [facility] Last Admin: 12/22/17 05:51 Dose: 25 mcg Memantine (Namenda) 10 mg PO DAILY [facility] Last Admin: 12/22/17 09:52 Dose: 10 mg Montelukast Sodium (Singulair) 10 mg PO HS [facility] Last Admin: 12/21/17 22:43 Dose: 10 mg Nicotine (Nicoderm Cq) 1 patch TD DAILY [facility] Last Admin: 12/22/17 09:52 Dose: 1 patch Pantoprazole Sodium (Protonix Ec Tab) 20 mg PO 0600 [facility] Last Admin: 12/22/17 05:51 Dose: 20 mg Tamsulosin HCl (Flomax) 0.4 mg PO DAILY [facility] Last Admin: 12/22/17 09:52 Dose: 0.4 mg - Labs Labs: 12/22/17 06:30 12/22/17 06:30 - Respiratory Exam Respiratory Exam: Rales - Cardiovascular Exam Cardiovascular Exam: REGULAR RHYTHM - GI/Abdominal Exam GI & Abdominal Exam: Soft, Normal Bowel Sounds - Extremities Exam Extremities Exam: Pedal Edema - Neurological Exam Neurological Exam: Alert, Awake Assessment and Plan (1) Anemia Status: Chronic (2) CHF (congestive heart failure) Status: Acute (3) HTN (hypertension) Status: Chronic - Assessment and Plan (Free Text) Plan: continue present txDr. Rivas to resume care of pt in am
--- NOTE | 2017-12-22 13:07 | PN ---
DATE: 12/22/2017 SUBJECTIVE: Patient lying on the bed, not in apparent distress. No new complaints and no erythema noted. Status post RBC transfusion yesterday. Did repeat hemoglobin, today 7.8. History of CAD, history of CABG, history of cardiomyopathy ischemic, calculated ejection fraction was around 20% dated 11/09/2016. Yesterday, the patient had repeat echo done that showed RV systolic pressure 69, repeat ejection fraction 55%. Mild mitral regurgitation, normal tricuspid regurgitation. RECOMMENDATIONS: Monitor H and H, continue GI evaluation, continue p.r.n. hydralazine, continue atorvastatin, continue Lasix, continue levothyroxine, consider discontinuing telemetry and GI evaluation. Patient admitted with acute kidney injury. With hydration, renal function is improving, Patient is being followed by Dr. Sawant for renal insufficiency and acute kidney injury. Since the patient's renal insufficiency is improving, we will hold Lasix and give gentle hydration. Start saline at 50 mL an hour, and then monitor closely. Repeat blood workup in the morning. Overall, the patient's condition is critical. Long-term prognosis is guarded. DNR status will be discussed with the family. Repeat the blood workup after hydration tomorrow. Radha Woodward MD
[2017-12-22 13:39] LABS: FOLATE 10.5 ng/mL
--- NOTE | 2017-12-22 22:09 | PN ---
DATE: 12/22/2017 PULMONARY PROGRESS NOTE REFERRING PHYSICIAN: Irasema Rivas MD. SUBJECTIVE: He is lying in the bed, head at 45 degrees, sleepy, arousable. Decreased cough. Decreased shortness breath. No nausea, vomiting, or diarrhea, leg pain, or leg swelling. PHYSICAL EXAMINATION: GENERAL: In no acute distress. VITAL SIGNS: Temperature is 98, heart rate is 85, respiratory rate is 18, blood pressure 144/58, pulse ox 100% on 2 liters nasal cannula. HEENT: Moist mucous membrane. Crowded airway. NECK: Supple. No JVD. LUNGS: Have a few scattered rhonchi and wheezing. HEART: S1 and S2. ABDOMEN: Soft, nontender. No organomegaly. EXTREMITIES: There is no edema. NEUROLOGIC: Sleepy, arousable. Follows simple command. MEDICATIONS: He is on hydralazine 10 mg four times a day p.r.n., aspirin 81 mg daily, Brovana inhaled twice a day, DuoNeb every 4 hours p.r.n., Flomax 0.4 mg daily, Lipitor 40 mg daily, Namenda 10 mg daily, gabapentin 300 mg twice a day, Nicoderm patch daily, Protonix 40 mg daily, budesonide inhaled twice a day, Singulair 10 mg daily, IV fluid normal saline 50 mL per hour, Synthroid 25 mcg daily. LABORATORY DATA: Shows hemoglobin 7.8, hematocrit 23.8, WBC 4.6, platelet is 174. Sodium 136, potassium 4.9, chloride 102, bicarbonate 25, BUN 64, creatinine 4.4, phosphorus 4.9, magnesium is 2.3. Iron is 78. AST 37, ALT is 22, alk phos is 88. Albumin is 3.1. B12 is 769. Folate is 10.5. IMPRESSION AND PLAN: Chronic obstructive lung disease, cardiomyopathy, has a diastolic cardiac dysfunction, pulmonary retention, coronary artery disease, hypertension, hyperlipidemia, smoker, iron-deficiency anemia, renal failure. Pulmonary point view, doing okay. Continue bronchodilator. Keep head at 45 degrees. Receiving IV iron. Gingerly fluid is being given. Need to watch fluid status closely. Follow up labs in the morning. Thank you and we will follow with you. Radha Vail MD [facility] # [id number]
[2017-12-23] MEDS: Levothyroxine 25 MCG TAB PO SCH (05:14)
[2017-12-23] MEDS: Pantoprazole 20 mg EC Tab PO SCH (05:14)
--- NOTE | 2017-12-23 06:32 | CP.PCM.PN ---
<Isaura Hearn - Last Filed: 12/23/17 10:08> Subjective - Date & Time of Evaluation Date of Evaluation: 12/23/17 Time of Evaluation: 07:00 - Subjective Subjective: Nephrology Progress Note for Nisa Mitchell PGY3 Patient seen and examined at bedside. There were no acute overnight events as per nursing staff. Patient is resting comfortably in bed. He denies pain, chest pain, shortness of breath, nausea/vomiting/diarrhea, fever/chills. Objective - Vital Signs/Intake and Output Vital Signs (last 24 hours): Temp Pulse Resp BP Pulse Ox 98.9 F 99 H 19 164/69 H 97 12/23/17 06:00 12/23/17 06:00 12/23/17 06:00 12/23/17 06:00 12/23/17 06:00 Intake and Output: 12/22/17 12/23/17 18:59 06:59 Intake Total 780 300 Output Total 2600 1200 Balance -1820 -900 - Medications Medications: Current Medications Albuterol/Ipratropium (Duoneb 3 Mg/0.5 Mg (3 Ml) Ud) 3 ml IH [id number] PRN PRN Reason: Shortness of Breath Arformoterol Tartrate (Brovana) 15 mcg IH [id number] [facility] Last Admin: 12/22/17 19:17 Dose: 15 mcg Aspirin (Aspirin Chewable) 81 mg PO DAILY [facility] Last Admin: 12/22/17 09:52 Dose: 81 mg Atorvastatin Calcium (Lipitor) 40 mg PO HS [facility] Last Admin: 12/22/17 21:28 Dose: 40 mg Budesonide (Pulmicort Respules) 0.5 mg IH [id number] [facility] Last Admin: 12/22/17 19:17 Dose: 0.5 mg Gabapentin (Neurontin) 300 mg PO BID [facility]; Protocol Last Admin: 12/22/17 17:19 Dose: 300 mg Hydralazine HCl (Apresoline) 10 mg PO QID PRN PRN Reason: for SBP>160 Sodium Chloride (Sodium Chloride 0.9%) 1,000 mls @ 50 mls/hr IV .Q20H [facility] Stop: 12/23/17 23:59 Last Admin: 12/22/17 14:46 Dose: 50 mls/hr Levothyroxine Sodium (Synthroid) 25 mcg PO 0600 [facility] Last Admin: 12/23/17 05:14 Dose: 25 mcg Memantine (Namenda) 10 mg PO DAILY [facility] Last Admin: 12/22/17 09:52 Dose: 10 mg Montelukast Sodium (Singulair) 10 mg PO HS [facility] Last Admin: 12/22/17 21:28 Dose: 10 mg Nicotine (Nicoderm Cq) 1 patch TD DAILY [facility] Last Admin: 12/22/17 09:52 Dose: 1 patch Pantoprazole Sodium (Protonix Ec Tab) 20 mg PO 0600 [facility] Last Admin: 12/23/17 05:14 Dose: 20 mg Tamsulosin HCl (Flomax) 0.4 mg PO DAILY [facility] Last Admin: 12/22/17 09:52 Dose: 0.4 mg - Labs Labs: 12/22/17 06:30 12/22/17 06:30 - Constitutional Appears: No Acute Distress - Head Exam Head Exam: ATRAUMATIC, NORMAL INSPECTION, NORMOCEPHALIC - Eye Exam Eye Exam: Normal appearance, PERRL Pupil Exam: NORMAL ACCOMODATION - ENT Exam ENT Exam: Mucous Membranes Moist - Respiratory Exam Respiratory Exam: Clear to Ausculation Bilateral, NORMAL BREATHING PATTERN. absent: Rales, Rhonchi, Wheezes - Cardiovascular Exam Cardiovascular Exam: REGULAR RHYTHM, +S1, +S2, Murmur. absent: Gallop, Rubs - GI/Abdominal Exam GI & Abdominal Exam: Soft, Normal Bowel Sounds. absent: Rigid, Tenderness, Mass, Rebound - Extremities Exam Extremities Exam: Normal Inspection. absent: Calf Tenderness, Pedal Edema - Neurological Exam Neurological Exam: Alert, CN II-XII Intact. absent: Motor Sensory Deficit, Oriented x3 - Psychiatric Exam Psychiatric exam: Normal Affect, Normal Mood - Skin Skin Exam: Dry, Normal Color, Warm Assessment and Plan - Assessment and Plan (Free Text) Assessment: 1. UZAIR on CKD stage IV (improved) - secondary to dehydration and bleed 2. Acute on chronic anemia - secondary to hematuria from pulling out sol - s/p 2U PRBC 3. Hematuria 4. Hypovolemia 5. Iron deficiency anemia 6. Hyperkalemia- resolved 7. Essential HTN Plan: Labs and imaging reviewed. No plan for renal replacement at this time. Hy pokalemia has resolved. PTH is pending. Hgb is stable after blood transfusion. Patient given one dose of Venofer yesterday. Will continue to monitor kidney function and electrolytes. Continue to monitor I&O. Patient is on gentle hydration for hypovolemia. Case seen, discussed and reviewed with Dr. Andrade. Nisa Hearn PGY3 <Spencer Andrade - Last Filed: 12/23/17 14:30> Objective - Vital Signs/Intake and Output Vital Signs (last 24 hours): Temp Pulse Resp BP Pulse Ox 97.4 F L 91 H 20 156/67 H 95 12/23/17 12:00 12/23/17 12:00 12/23/17 12:00 12/23/17 12:00 12/23/17 12:00 Intake and Output: 12/23/17 12/23/17 06:59 18:59 Intake Total 300 Output Total 1200 Balance -900 - Medications Medications: Current Medications Albuterol/Ipratropium (Duoneb 3 Mg/0.5 Mg (3 Ml) Ud) 3 ml IH [id number] PRN PRN Reason: Shortness of Breath Last Admin: 12/23/17 08:00 Dose: 3 ml Arformoterol Tartrate (Brovana) 15 mcg IH [id number] [facility] Last Admin: 12/23/17 08:00 Dose: 15 mcg Aspirin (Aspirin Chewable) 81 mg PO DAILY [facility] Last Admin: 12/23/17 09:38 Dose: 81 mg Atorvastatin Calcium (Lipitor) 40 mg PO HS [facility] Last Admin: 12/22/17 21:28 Dose: 40 mg Budesonide (Pulmicort Respules) 0.5 mg IH [id number] [facility] Last Admin: 12/23/17 08:00 Dose: 0.5 mg Gabapentin (Neurontin) 300 mg PO BID [facility]; Protocol Last Admin: 12/23/17 09:38 Dose: 300 mg Hydralazine HCl (Apresoline) 10 mg PO QID PRN PRN Reason: for SBP>160 Sodium Chloride (Sodium Chloride 0.9%) 1,000 mls @ 50 mls/hr IV .Q20H [facility] Stop: 12/24/17 23:59 Last Admin: 12/22/17 14:46 Dose: 50 mls/hr Levothyroxine Sodium (Synthroid) 25 mcg PO 0600 [facility] Last Admin: 12/23/17 05:14 Dose: 25 mcg Memantine (Namenda) 10 mg PO DAILY [facility] Last Admin: 12/23/17 09:38 Dose: 10 mg Montelukast Sodium (Singulair) 10 mg PO HS [facility] Last Admin: 12/22/17 21:28 Dose: 10 mg Nicotine (Nicoderm Cq) 1 patch TD DAILY [facility] Last Admin: 12/23/17 09:38 Dose: 1 patch Pantoprazole Sodium (Protonix Ec Tab) 20 mg PO 0600 [facility] Last Admin: 12/23/17 05:14 Dose: 20 mg Tamsulosin HCl (Flomax) 0.4 mg PO DAILY [facility] Last Admin: 12/23/17 09:38 Dose: 0.4 mg - Labs Labs: 12/23/17 07:00 12/23/17 07:00 Assessment and Plan - Assessment and Plan (Free Text) Plan: Pt seen and examined by me. I have reviewed the note by the medical records director. The case was discussed and reviewed with the resident. I reviewed the medications and labs. Pt with UZAIR with improvement. Potassium is improved. He does have Iron def anemia prior to being given a transfusion. He was given Venofer for iron def.
--- NOTE | 2017-12-23 06:56 | CP.PCM.PN ---
Subjective - Date & Time of Evaluation Date of Evaluation: 12/23/17 Time of Evaluation: 06:20 - Subjective Subjective: Easily awaken, no distress, lying in bed Reason for consultation and follow up: Cardiac evaluation for elevated BNP, rule out congestive heart failure Seen and examined by me and Dr. Woodward Objective - Vital Signs/Intake and Output Vital Signs (last 24 hours): Temp Pulse Resp BP Pulse Ox 98.9 F 99 H 19 164/69 H 97 12/23/17 06:00 12/23/17 06:00 12/23/17 06:00 12/23/17 06:00 12/23/17 06:00 Intake and Output: 12/22/17 12/23/17 18:59 06:59 Intake Total 780 300 Output Total 2600 1200 Balance -1820 -900 - Medications Medications: Current Medications Albuterol/Ipratropium (Duoneb 3 Mg/0.5 Mg (3 Ml) Ud) 3 ml IH [id number] PRN PRN Reason: Shortness of Breath Arformoterol Tartrate (Brovana) 15 mcg IH [id number] [facility] Last Admin: 12/22/17 19:17 Dose: 15 mcg Aspirin (Aspirin Chewable) 81 mg PO DAILY [facility] Last Admin: 12/22/17 09:52 Dose: 81 mg Atorvastatin Calcium (Lipitor) 40 mg PO HS [facility] Last Admin: 12/22/17 21:28 Dose: 40 mg Budesonide (Pulmicort Respules) 0.5 mg IH [id number] [facility] Last Admin: 12/22/17 19:17 Dose: 0.5 mg Gabapentin (Neurontin) 300 mg PO BID [facility]; Protocol Last Admin: 12/22/17 17:19 Dose: 300 mg Hydralazine HCl (Apresoline) 10 mg PO QID PRN PRN Reason: for SBP>160 Sodium Chloride (Sodium Chloride 0.9%) 1,000 mls @ 50 mls/hr IV .Q20H [facility] Stop: 12/23/17 23:59 Last Admin: 12/22/17 14:46 Dose: 50 mls/hr Levothyroxine Sodium (Synthroid) 25 mcg PO 0600 [facility] Last Admin: 12/23/17 05:14 Dose: 25 mcg Memantine (Namenda) 10 mg PO DAILY [facility] Last Admin: 12/22/17 09:52 Dose: 10 mg Montelukast Sodium (Singulair) 10 mg PO HS [facility] Last Admin: 12/22/17 21:28 Dose: 10 mg Nicotine (Nicoderm Cq) 1 patch TD DAILY [facility] Last Admin: 12/22/17 09:52 Dose: 1 patch Pantoprazole Sodium (Protonix Ec Tab) 20 mg PO 0600 [facility] Last Admin: 12/23/17 05:14 Dose: 20 mg Tamsulosin HCl (Flomax) 0.4 mg PO DAILY [facility] Last Admin: 12/22/17 09:52 Dose: 0.4 mg - Labs Labs: 12/22/17 06:30 12/22/17 06:30 Assessment and Plan - Assessment and Plan (Free Text) Assessment: An 87 year old male who was brought in from [facility] due to low hemoglobin.History of COPD,chronic diastolic CHF, hypertension, hyperlipidemia, dementia,anemia, coronary artery disease post CABG,cardiomyopathy, LVEF from ECHO 20%, AICD. Admitted for acute renal injury, severe anemia. Blood transfusion of PRBC given.On iron infusion.Repeat H/H stable. Plan: No distress, Repeat H/H 7.8/23.8 post transfusion of PRBC Continue Iron IV infusion for anemia Heart rate and blood pressure stable Denies chest pain or shortness of breath Continue IV hydration, kidney function improving Continue current treatment Continue current medications Fall precaution Chart reviewed Will follow up Plan and treatment discussed with Dr. Woodward
[2017-12-23] MEDS: Arformoterol 15 mcg/2 ml Inh Sol IH SCH ×2 (08:00→20:10)
[2017-12-23] MEDS: Albuterol-Ipratrop 3 mg / 0.5 (3 ml) UD IH PRN ×2 (08:00→18:22)
[2017-12-23] MEDS: Budesonide 0.5 mg/2 ml Inhal Susp UD IH SCH ×2 (08:00→20:10)
[2017-12-23 08:13] LABS: HEMOGLOBIN 7.3 g/dL (14.0-18.0); MEAN CELL VOLUME 81.8 fl (80.0-105.0); MEAN CORPUSCULAR HEMOGLOBIN 26.6 pg (25.0-35.0); MEAN CORPUSCULAR HGB CONC 32.6 g/dl (31.0-37.0); MEAN PLATELET VOLUME 9.3 fl (7.0-11.0); RBC 2.74 10^6/uL (3.5-6.1); RED CELL DISTRIBUTION WIDTH 18.1 % (11.5-14.5); WHITE BLOOD COUNT 6.1 10^3/ul (4.5-11.0)
[2017-12-23 09:01] LABS: ALB/GLOB RATIO 0.9 (1.1-1.8); ALBUMIN 2.8 g/dL (3.0-4.8)
--- NOTE | 2017-12-23 16:15 | PN ---
DATE: 12/23/2017 SUBJECTIVE: The patient appears much more awake and alert. He is still in the bed; does not make a sense; history of coronary artery disease; history of cardiomyopathy, ischemic; calculated ejection fraction 20% dated 11/09/2016. A repeat echo done yesterday does show RV systolic pressure of 69, ejection fraction is preserved 55, mild mitral regurgitation, moderate tricuspid regurgitation. RECOMMENDATIONS: Monitor H and H. The patient has dropping H and H, needs GI workup, history of renal insufficiency; although it is improving, continue gentle hydration, avoid nephrotoxic medications, continue atorvastatin, we will repeat blood workup tomorrow. The patient is on IV fluids. We will continue 50 mL an hour until tomorrow night. We will increase in next 24 hours and repeat the lab in the morning. Thank you, Dr. Og/Dr. Rivas, for providing us the opportunity in taking care of the patient, Faraz Zuñiga. Radha Woodward MD
--- NOTE | 2017-12-23 20:39 | PN ---
DATE: 12/23/2017 PULMONARY PROGRESS NOTE REFERRING PHYSICIAN: Irasema Rivas MD. SUBJECTIVE: He is lying in the bed, head up 45 degrees. Family is at bedside. Feels better. More awake and alert. Decreased cough, shortness of breath. No chest pain. No nausea, no vomiting, no diarrhea. No leg pain or leg swelling. PHYSICAL EXAMINATION: GENERAL: In no acute distress. VITAL SIGNS: Temperature is 98, heart rate is 87, respiratory rate is 20, blood pressure 156/67, pulse ox 95% on 2 liters nasal cannula. HEENT: Moist mucous membrane. Crowded airway. NECK: Supple. No JVD. LUNGS: Have a decreased breath sounds at the bases with few rhonchi. HEART: S1, S2. ABDOMEN: Soft, nontender, no organomegaly. EXTREMITIES: No edema. NEUROLOGIC: Awake, alert, follows simple command. MEDICATIONS: He is on hydralazine 10 mg four times a day p.r.n., aspirin 81 mg daily, Brovana inhaled twice a day, DuoNeb every 4 hours p.r.n., Flomax 0.4 mg daily, Lipitor 40 mg daily, Namenda 10 mg daily, gabapentin 300 mg twice a day, Nicoderm patch daily, Protonix 20 mg daily, Pulmicort inhaled twice a day, Singulair 10 mg daily, getting IV fluid normal saline 50 mL per hour, Synthroid is 25 mcg daily. LABORATORY DATA: Shows hemoglobin 7.3, hematocrit 22.4, WBC 6.1, platelet is 169. Sodium 138, potassium 4.7, chloride 106, bicarbonate 25, BUN 58, creatinine 3.6, glucose is 93, calcium 9. AST 34, ALT 23, alk phos is 79. Albumin is 2.8. Microbiology, urine culture, there is no growth. IMPRESSION AND PLAN: Chronic obstructive lung disease, cardiomyopathy with pulmonary hypertension, cardiac diastolic dysfunction, coronary artery disease, hypertension, hyperlipidemia, active smoker, iron-deficiency anemia, renal failure. Spoke to family at bedside. All the questions answered. Pulmonary point of view, urged him to stop smoking. Continue IV and inhaled bronchodilator, gastric prophylaxis. SCD to lower extremity. Continue to watch BUN and creatinine closely. Being followed by Cardiology and Nephrology. Thank you and we will follow with you. Radha Vail MD
[2017-12-24 06:32] LABS: BASO # 0.02 K/mm3 (0.0-2.0); BASO % 0.3 % (0.0-3.0); EOS % 0.4 % (1.5-5.0); GRAN # 5.36 (1.4-6.5); GRAN % 74.2 % (50.0-68.0); HEMOGLOBIN 7.5 g/dL (14.0-18.0); LYMPH # 0.6 (1.2-3.4); LYMPH % 8.3 % (22.0-35.0); MEAN CELL VOLUME 82.6 fl (80.0-105.0); MEAN CORPUSCULAR HEMOGLOBIN 26.6 pg (25.0-35.0); MEAN CORPUSCULAR HGB CONC 32.2 g/dl (31.0-37.0); MONO # 1.2 (0.1-0.6); MONO % 16.8 % (1.0-6.0); RBC 2.82 10^6/uL (3.5-6.1); RED CELL DISTRIBUTION WIDTH 18.4 % (11.5-14.5); WHITE BLOOD COUNT 7.2 10^3/ul (4.5-11.0)
[2017-12-24 06:48] LABS: CALCIUM 9.1 mg/dL (8.4-10.5)
[2017-12-24] MEDS: Arformoterol 15 mcg/2 ml Inh Sol IH SCH ×2 (08:24→20:47)
[2017-12-24] MEDS: Budesonide 0.5 mg/2 ml Inhal Susp UD IH SCH ×2 (08:24→20:47)
[2017-12-24] MEDS: Albuterol-Ipratrop 3 mg / 0.5 (3 ml) UD IH PRN (08:24)
--- NOTE | 2017-12-24 09:01 | PN ---
DATE: 12/23/2017 SUBJECTIVE: Patient is an 87-year-old male. Patient was seen and examined on the bedside on 12/23/2017, looking comfortable. More awake and alert. No acute event overnight happened. No headache. No dizziness. Patient is a good historian. No fever. No chills. No shortness of breath. No nausea, vomiting, or diarrhea. PHYSICAL EXAMINATION: VITAL SIGNS: Temperature 98.9, pulse 99, respiratory rate 19, blood pressure 154/69, pulse oximetry 97%. HEENT: Head: Normocephalic, atraumatic. Eyes: PERRLA. Extraocular muscles intact. Conjunctivae clear. Nose patent. Mucous membrane moist. NECK: Supple. No carotid bruit, JVD, or thyromegaly. CHEST: Bilaterally symmetrical. HEART: S1 and S2 positive. LUNGS: Clear to auscultation. ABDOMEN: Soft. Bowel sounds present. No organomegaly. EXTREMITIES: No edema. No cyanosis. NEUROLOGIC: Patient is awake and alert. Moving all 4 extremities. No focal deficits. MEDICATIONS: DuoNeb, Brovana, aspirin, Lipitor, Pulmicort, Neurontin, hydralazine, sodium chloride, Synthroid, Namenda, Singulair, Nicoderm, Protonix, Flomax. LABORATORY DATA: White blood cells 4.6, hemoglobin 7.8, hematocrit 23.8, platelets 174. Sodium 136, potassium 4.9, BUN 64, creatinine 4.4, glucose 90. ASSESSMENT AND PLAN: Mr. Faraz Zuñiga is an 87-year-old male with severe anemia, acute on chronic; renal insufficiency;acute kidney injury on chronic kidney disease stage IV secondary to dehydration ; acute on chronic anemia secondary to hematuria from pulling out Mann; status post 2 units of packed red blood cells transfusion; history of hematuria; hypovolemia; hyperkalemia, resolved; iron deficiency; hypertension. According to Nephrology, no plan for renal replacement at this time. Hemoglobin stable after blood transfusion. Patient got a dose of Venofer yesterday. Continue monitoring renal function test and electrolytes, ins and outs. Patient is still getting gentle hydration. History of heavy smoking, hyperlipidemia, hypertension, diastolic congestive heart failure, chronic obstructive pulmonary disease, dementia, coronary artery disease, status post coronary artery bypass grafting, cardiomyopathy, left ventricular ejection fraction from echo 20%, automated implantable cardioverter defibrillator. Fall precautions. We will involve with GI also. Appreciated Cardiology, Nephrology, and Pulmonary input. We will follow up. Irasema Rivas MD [email or web address]
--- NOTE | 2017-12-24 09:32 | RAD ---
Date of service: 12/23/2017 HISTORY: respiratory distress COMPARISON: 12/21/2017 FINDINGS: LUNGS: No active pulmonary disease. PLEURA: No significant pleural effusion identified, no pneumothorax apparent. CARDIOVASCULAR: Moderate cardiomegaly moderate to severe vascular congestion OSSEOUS STRUCTURES: Sternal wires VISUALIZED UPPER ABDOMEN: Normal. OTHER FINDINGS: Pacemaker IMPRESSION: Moderate cardiomegaly with moderate to severe vascular congestion
[2017-12-24] MEDS ORDERED: Barium Sulfate Susp 2.1% w/v, 2.0% w/w 450 mL Bottle PO ONE (10:24)
--- NOTE | 2017-12-24 11:26 | CP.PCM.PN ---
<Isa Stark - Last Filed: 12/24/17 14:00> Subjective - Date & Time of Evaluation Date of Evaluation: 12/24/17 Time of Evaluation: 07:00 - Subjective Subjective: PGY-3 Nephrology Progress Note for Dr. Andrade Patient seen and examined at bedside. overnight patient was placed on restraints due to pulling his osl and IV per nurse. Patient is resting comfortably in bed. He denies pain, chest pain, shortness of breath, nausea, vomiting, diarrhea. Objective - Vital Signs/Intake and Output Vital Signs (last 24 hours): Temp Pulse Resp BP Pulse Ox 98.1 F 85 19 156/68 H 100 12/24/17 06:00 12/24/17 06:00 12/24/17 06:00 12/24/17 06:00 12/24/17 06:00 Intake and Output: 12/24/17 12/24/17 06:59 18:59 Intake Total 1040 Output Total 2500 Balance -1460 - Medications Medications: Current Medications Albuterol/Ipratropium (Duoneb 3 Mg/0.5 Mg (3 Ml) Ud) 3 ml IH [id number] PRN PRN Reason: Shortness of Breath Last Admin: 12/24/17 08:24 Dose: 3 ml Arformoterol Tartrate (Brovana) 15 mcg IH [id number] [facility] Last Admin: 12/24/17 08:24 Dose: 15 mcg Aspirin (Aspirin Chewable) 81 mg PO DAILY [facility] Last Admin: 12/24/17 09:56 Dose: 81 mg Atorvastatin Calcium (Lipitor) 40 mg PO HS [facility] Last Admin: 12/23/17 21:35 Dose: 40 mg Budesonide (Pulmicort Respules) 0.5 mg IH [id number] [facility] Last Admin: 12/24/17 08:24 Dose: 0.5 mg Gabapentin (Neurontin) 300 mg PO BID [facility]; Protocol Last Admin: 12/24/17 10:00 Dose: 300 mg Hydralazine HCl (Apresoline) 10 mg PO QID PRN PRN Reason: for SBP>160 Iron Sucrose 200 mg/ Sodium (Chloride) 110 mls @ 110 mls/hr IVPB ONCE ONE Stop: 12/24/17 12:09 Levothyroxine Sodium (Synthroid) 25 mcg PO 0600 [facility] Last Admin: 12/23/17 05:14 Dose: 25 mcg Memantine (Namenda) 10 mg PO DAILY [facility] Last Admin: 12/24/17 10:00 Dose: 10 mg Montelukast Sodium (Singulair) 10 mg PO HS [facility] Last Admin: 12/23/17 21:35 Dose: 10 mg Nicotine (Nicoderm Cq) 1 patch TD DAILY [facility] Last Admin: 12/24/17 10:00 Dose: 1 patch Pantoprazole Sodium (Protonix Ec Tab) 20 mg PO 0600 [facility] Last Admin: 12/23/17 05:14 Dose: 20 mg Tamsulosin HCl (Flomax) 0.4 mg PO DAILY [facility] Last Admin: 12/24/17 10:00 Dose: 0.4 mg - Labs Labs: 12/24/17 06:10 12/24/17 06:10 - Additional Findings Additional findings: - Constitutional Appears: No Acute Distress - Head Exam Head Exam: ATRAUMATIC, NORMAL INSPECTION, NORMOCEPHALIC - Eye Exam Eye Exam: Normal appearance, PERRL - ENT Exam ENT Exam: Mucous Membranes Moist - Respiratory Exam Respiratory Exam: Clear to Ausculation Bilateral, NORMAL BREATHING PATTERN. absent: Rales, Rhonchi, Wheezes - Cardiovascular Exam Cardiovascular Exam: REGULAR RHYTHM, +S1, +S2, Murmur. absent: Gallop, Rubs - GI/Abdominal Exam GI & Abdominal Exam: Soft, Normal Bowel Sounds. absent: Rigid, Tenderness, Mass, Rebound - Extremities Exam Extremities Exam: Normal Inspection. absent: Calf Tenderness, Pedal Edema - Neurological Exam Neurological Exam: Alert, CN II-XII Intact. absent: Motor Sensory Deficit, Oriented x3 - Psychiatric Exam Psychiatric exam: Normal Affect, Normal Mood - Skin Skin Exam: Dry, Normal Color, Warm Assessment and Plan - Assessment and Plan (Free Text) Assessment: UZAIR on CKD stage IV - secondary to dehydration and bleed Acute on chronic anemia - s/p 2U PRBC Hematuria Hypovolemia Iron deficiency anemia Hyperkalemia- resolved Essential HTN Plan: Labs and imaging reviewed. No plan for renal replacement at this time. Creatinine is improving, will roder work up including urine rotien, creatinine ratio, SPEP, UPEP, HIV, hep B, hep C, HARLAN, anca. Mild Hyperkalemia, will repeat in AM. PTH is pending. Hgb is stable after blood transfusion. Patient given one dose of Venofer, will giev another today. Will continue to monitor kidney function and electrolytes. Continue to monitor I&O. Patient is on gentle hydration for hypovolemia. Case seen, discussed and reviewed with Dr. Andrade. <Spencer Andrade S - Last Filed: 12/25/17 18:26> Objective - Vital Signs/Intake and Output Vital Signs (last 24 hours): Temp Pulse Resp BP Pulse Ox 98.1 F 98 H 18 174/88 H 90 L 12/25/17 17:00 12/25/17 17:00 12/25/17 17:00 12/25/17 17:00 12/25/17 17:00 Intake and Output: 12/25/17 12/25/17 06:59 18:59 Intake Total 279 Output Total 450 Balance -450 279 - Medications Medications: Current Medications Albuterol/Ipratropium (Duoneb 3 Mg/0.5 Mg (3 Ml) Ud) 3 ml IH [id number] PRN PRN Reason: Shortness of Breath Last Admin: 12/24/17 08:24 Dose: 3 ml Arformoterol Tartrate (Brovana) 15 mcg IH [id number] [facility] Last Admin: 12/25/17 07:24 Dose: 15 mcg Aspirin (Aspirin Chewable) 81 mg PO DAILY [facility] Last Admin: 12/25/17 10:44 Dose: Not Given Atorvastatin Calcium (Lipitor) 40 mg PO HS [facility] Last Admin: 12/24/17 21:17 Dose: 40 mg Budesonide (Pulmicort Respules) 0.5 mg IH [id number] [facility] Last Admin: 12/25/17 07:24 Dose: 0.5 mg Calcitriol (Rocaltrol) 0.5 mcg PO DAILY [facility] Last Admin: 12/25/17 17:44 Dose: 0.5 mcg Gabapentin (Neurontin) 300 mg PO BID [facility]; Protocol Last Admin: 12/25/17 17:45 Dose: 300 mg Hydralazine HCl (Apresoline) 10 mg PO QID PRN PRN Reason: for SBP>160 Sodium Chloride (Sodium Chloride 0.9%) 1,000 mls @ 100 mls/hr IV .Q10H [facility] Levothyroxine Sodium (Synthroid) 25 mcg PO 0600 [facility] Last Admin: 12/25/17 05:47 Dose: 25 mcg Memantine (Namenda) 10 mg PO DAILY [facility] Last Admin: 12/25/17 17:46 Dose: 10 mg Montelukast Sodium (Singulair) 10 mg PO HS [facility] Last Admin: 12/24/17 21:17 Dose: 10 mg Nicotine (Nicoderm Cq) 1 patch TD DAILY [facility] Last Admin: 12/25/17 10:49 Dose: 1 patch Pantoprazole Sodium (Protonix Ec Tab) 20 mg PO 0600 [facility] Last Admin: 12/25/17 05:47 Dose: 20 mg Tamsulosin HCl (Flomax) 0.4 mg PO DAILY [facility] Last Admin: 12/25/17 17:45 Dose: 0.4 mg - Labs Labs: 12/25/17 08:00 12/25/17 08:00 Assessment and Plan - Assessment and Plan (Free Text) Plan: Pt seen and examined by me. This is a late entry. I have reviewed the note by the emergency medical service coordinator. The case was discussed and reviewed with the resident. I reviewed the medications and labs. Pt with probable CKD but his Cr is improving. He did have UZAIR that has improved. Will get serological work up. He is getting IV Venofer for iron def. PTH is pending to evaluate secondary hyperparathyroidism. He may need endoscopy to evaluate anemia. He will need BMP to follow his K.
--- NOTE | 2017-12-24 12:52 | PN ---
DATE: 12/24/2017 SUBJECTIVE: The patient is confused, in two-point restraint, not in apparent distress. PHYSICAL EXAMINATION: VITAL SIGNS: Temperature afebrile, heart rate 85, blood pressure 156/68. HEENT: PERRLA. Extraocular muscles are intact. NECK: Supple. No carotid bruits or thyromegaly. CHEST: Clear to auscultation. HEART: S1 and S2 regular. ABDOMEN: Soft. EXTREMITIES: Clubbing and cyanosis negative. LABORATORY DATA: Blood workup as follows: WBC 7, hemoglobin 7.5, hematocrit 23.3, and platelet count 162. Chemistry shows sodium of 141, potassium 5.2, chloride 107, carbon dioxide 26, anion gap of 13, BUN 56, and creatinine 3.2. IMPRESSION: An 87-year-old male with history of coronary artery disease, history of coronary artery bypass grafting, cardiomyopathy ischemic, resident of [facility], sent because of abdominal pain, found to be severely decreased hemoglobin, got 2 units of blood, still hemoglobin is 7; history of coronary artery bypass grafting, history of automatic implantable cardioverter-defibrillator, history of gastrointestinal bleed in the past. Repeat echo was done that shows ejection fraction of 55%, borderline dilated right atrium, trace aortic regurgitation, normal mitral valve, mild MR. RECOMMENDATIONS: Monitor H and H, transfuse units of blood. We will discontinue telemetry. Continue GI workup. The patient has baseline dementia. No invasive cardiac workup is planned at this time. History of renal insufficiency. Suggest to monitor H and H and if it goes below 7, consider packed RBC transfusion. Code status DNR should be discussed with the patient's family if somebody is around. We will follow with you. We will repeat blood workup tomorrow. If the hemoglobin is below, we will consider packed RBC transfusion. Overall, the patient's condition is critical. Long-term prognosis is guarded. Baseline the patient has dementia, unable to get any information. Thank you, Dr. Rivas, for providing us the opportunity in taking care of the patient, Faraz Zuñiga. Radha Woodward MD [facility] # [id number]
--- NOTE | 2017-12-24 13:02 | CP.PCM.CON ---
<Billy Ray - Last Filed: 12/24/17 13:02> History of Present Illness - History of Present Illness History of Present Illness: GI Consult Note for Dr. Murdock Consult reason: Anemia HPI: 87 year old male with past medical history of COPD, CHF s/p AICD, HTN, CAD s/p CABG, CKD stage IV, dementia, iron deficiency anemia, hx of gastritis, HLD who presented to [facility] from [facility] with abdominal discomfort. Patient is noted to have dementia and is thus a poor historian. He indicates he had abdominal pain upon admission but is unable to give specific information regarding the pain without prompting. He reports his abdominal pain is tolerable at this time. He does indicate that he has had previous endoscopy. Patient is s/p 2 transfusions of pRBC for severe anemia. EGD (09/28/2014): moderate sized hiatus hernia, scattered hyper-erythematous mucosa of the gastric wall, scattered acute hyper-erythematous mucosa of the second portion of duodenum Colonoscopy (09/28/2014): Internal Hemorrhoids (+4), left sided colitis, spastic colon in the setting of an elevated CEA PMH: HTN, CHF with last known EF 55%(12/18/2017), CAD s/p CABG, Fe Def anemia, CKD stage IV, COPD, HLD, hx of gastritis, dementia PSH: CABG, AICD SOCHX: Tobacco: Former, ETOH: Denies, ID: Denies, Currently resides at [facility] ALL: NKDA MEDS: MAR reviewed Review of Systems - Review of Systems All systems: reviewed and no additional remarkable complaints except (as mentioned in HPI) Past Patient History - Past Medical History & Family History Past Medical History?: Yes - Past Social History Smoking Status: Current Some Days Smoker - CARDIAC Hx Congestive Heart Failure: Yes - PULMONARY Hx Chronic Obstructive Pulmonary Disease (COPD): Yes - NEUROLOGICAL Hx Neurological Disorder: Yes Hx Dementia: Yes Other/Comment: As per daughter, pt has mild dementia. - HEENT Hx HEENT Problems: No - RENAL Hx Renal Failure: Yes - ENDOCRINE/METABOLIC Hx Endocrine Disorders: No - HEMATOLOGICAL/ONCOLOGICAL Hx Blood Disorders: Yes Hx Anemia: Yes Other/Comment: Had blood transfusions for anemia - INTEGUMENTARY Hx Dermatological Problems: No - MUSCULOSKELETAL/RHEUMATOLOGICAL Hx Musculoskeletal Disorders: Yes Hx Falls: Yes - GASTROINTESTINAL Hx Gastrointestinal Disorders: Yes Other/Comment: Gastritis - GENITOURINARY/GYNECOLOGICAL Hx Genitourinary Disorders: No - PSYCHIATRIC Hx Psychophysiologic Disorder: No Hx Substance Use: No - SURGICAL HISTORY Hx Coronary Stent: Yes Other/Comment: CABG, coronary stent - ANESTHESIA Hx Anesthesia: Yes Hx Anesthesia Reactions: No Hx Malignant Hyperthermia: No Meds Allergies/Adverse Reactions: Allergies Allergy/AdvReac Type Severity Reaction Status Date / Time No Known Allergies Allergy Verified 04/11/17 19:07 - Medications Medications: Current Medications Albuterol/Ipratropium (Duoneb 3 Mg/0.5 Mg (3 Ml) Ud) 3 ml IH [id number] PRN PRN Reason: Shortness of Breath Last Admin: 12/24/17 08:24 Dose: 3 ml Arformoterol Tartrate (Brovana) 15 mcg IH [id number] [facility] Last Admin: 12/24/17 08:24 Dose: 15 mcg Aspirin (Aspirin Chewable) 81 mg PO DAILY [facility] Last Admin: 12/24/17 09:56 Dose: 81 mg Atorvastatin Calcium (Lipitor) 40 mg PO HS [facility] Last Admin: 12/23/17 21:35 Dose: 40 mg Budesonide (Pulmicort Respules) 0.5 mg IH [id number] [facility] Last Admin: 12/24/17 08:24 Dose: 0.5 mg Gabapentin (Neurontin) 300 mg PO BID [facility]; Protocol Last Admin: 12/24/17 10:00 Dose: 300 mg Hydralazine HCl (Apresoline) 10 mg PO QID PRN PRN Reason: for SBP>160 Levothyroxine Sodium (Synthroid) 25 mcg PO 0600 [facility] Last Admin: 12/23/17 05:14 Dose: 25 mcg Memantine (Namenda) 10 mg PO DAILY [facility] Last Admin: 12/24/17 10:00 Dose: 10 mg Montelukast Sodium (Singulair) 10 mg PO HS [facility] Last Admin: 12/23/17 21:35 Dose: 10 mg Nicotine (Nicoderm Cq) 1 patch TD DAILY [facility] Last Admin: 12/24/17 10:00 Dose: 1 patch Pantoprazole Sodium (Protonix Ec Tab) 20 mg PO 0600 [facility] Last Admin: 12/23/17 05:14 Dose: 20 mg Tamsulosin HCl (Flomax) 0.4 mg PO DAILY [facility] Last Admin: 12/24/17 10:00 Dose: 0.4 mg Physical Exam - Constitutional Appears: No Acute Distress, Older Than Stated Age, Confused, Chronically Ill - Head Exam Head Exam: ATRAUMATIC, NORMAL INSPECTION, NORMOCEPHALIC - Eye Exam Eye Exam: EOMI, PERRL - Neck Exam Neck exam: Positive for: Full Rom - Respiratory Exam Respiratory Exam: NORMAL BREATHING PATTERN - Cardiovascular Exam Cardiovascular Exam: REGULAR RHYTHM, +S1, +S2 - GI/Abdominal Exam GI & Abdominal Exam: Normal Bowel Sounds, Soft. absent: Firm, Guarding, Tenderness - Extremities Exam Extremities exam: Negative for: calf tenderness, pedal edema - Neurological Exam Neurological exam: Alert Additional comments: baseline demenita AAOx3 Motor and sensory grossly intact - Psychiatric Exam Additional comments: demenita - Skin Skin Exam: Dry, Intact Results - Vital Signs Recent Vital Signs: Last Vital Signs Temp 98.1 F 12/24/17 06:00 Pulse 85 12/24/17 06:00 Resp 19 12/24/17 06:00 BP 156/68 H 12/24/17 06:00 Pulse Ox 100 12/24/17 06:00 - Labs Result Diagrams: 12/24/17 06:10 12/24/17 06:10 Labs: Laboratory Results - last 24 hr 12/22/17 12/24/17 12/24/17 06:30 06:10 06:10 WBC 7.2 RBC 2.82 L Hgb 7.5 L Hct 23.3 L MCV 82.6 MCH 26.6 MCHC 32.2 RDW 18.4 H Plt Count 162 MPV 9.0 Gran % 74.2 H Lymph % (Auto) 8.3 L [place] % (Auto) 16.8 H Eos % (Auto) 0.4 L Baso % (Auto) 0.3 Gran # 5.36 Lymph # (Auto) 0.6 L [place] # (Auto) 1.2 H Eos # (Auto) 0.0 Baso # (Auto) 0.02 Sodium 141 Potassium 5.2 H Chloride 107 Carbon Dioxide 26 Anion Gap 13 BUN 56 H Creatinine 3.2 H Est GFR ( Amer) 22 Est GFR (Non-Af Amer) 18 Random Glucose 89 Hemoglobin A1c 6.0 Calcium 9.1 Phosphorus 4.1 Magnesium 2.2 Assessment & Plan - Assessment and Plan (Free Text) Assessment: 87 year old male with past medical history of COPD, CHF s/p AICD, HTN, CAD s/p CABG, CKD stage IV, dementia, iron deficiency anemia, hx of gastritis, HLD with severe anemia. Plan: Severe anemia in the setting of abdominal pain Acute on chronic kidney injury Demenita HTN HLD CHF s/p AICD (EF of 55%) - Clear liquid diet - Abd/Pelvis with PO contrast ordered for evaluation - EGD likely for tomorrow - Will need cardiac risk stratification for colonoscopy - cont to monitor H/H with serial CBC - Transfuse if symptomatic or hgb<7 - Further recommendations per Dr. Murdock - Date & Time Date: 12/24/17 Time: 13:02 <Ramon Murdock V - Last Filed: 12/24/17 19:43> Meds - Medications Medications: Current Medications Albuterol/Ipratropium (Duoneb 3 Mg/0.5 Mg (3 Ml) Ud) 3 ml IH [id number] PRN PRN Reason: Shortness of Breath Last Admin: 12/24/17 08:24 Dose: 3 ml Arformoterol Tartrate (Brovana) 15 mcg IH [id number] [facility] Last Admin: 12/24/17 08:24 Dose: 15 mcg Aspirin (Aspirin Chewable) 81 mg PO DAILY [facility] Last Admin: 12/24/17 09:56 Dose: 81 mg Atorvastatin Calcium (Lipitor) 40 mg PO HS [facility] Last Admin: 12/23/17 21:35 Dose: 40 mg Budesonide (Pulmicort Respules) 0.5 mg IH [id number] [facility] Last Admin: 12/24/17 08:24 Dose: 0.5 mg Gabapentin (Neurontin) 300 mg PO BID [facility]; Protocol Last Admin: 12/24/17 18:22 Dose: 300 mg Hydralazine HCl (Apresoline) 10 mg PO QID PRN PRN Reason: for SBP>160 Levothyroxine Sodium (Synthroid) 25 mcg PO 0600 [facility] Last Admin: 12/23/17 05:14 Dose: 25 mcg Memantine (Namenda) 10 mg PO DAILY [facility] Last Admin: 12/24/17 10:00 Dose: 10 mg Montelukast Sodium (Singulair) 10 mg PO HS [facility] Last Admin: 12/23/17 21:35 Dose: 10 mg Nicotine (Nicoderm Cq) 1 patch TD DAILY [facility] Last Admin: 12/24/17 10:00 Dose: 1 patch Pantoprazole Sodium (Protonix Ec Tab) 20 mg PO 0600 [facility] Last Admin: 12/23/17 05:14 Dose: 20 mg Tamsulosin HCl (Flomax) 0.4 mg PO DAILY [facility] Last Admin: 12/24/17 10:00 Dose: 0.4 mg Results - Vital Signs Recent Vital Signs: Last Vital Signs Temp 97.8 F 12/24/17 14:00 Pulse 90 12/24/17 14:00 Resp 20 12/24/17 14:00 BP 146/62 12/24/17 14:00 Pulse Ox 99 12/24/17 14:00 - Labs Result Diagrams: 12/24/17 06:10 12/24/17 06:10 Labs: Laboratory Results - last 24 hr 12/21/17 12/22/17 12/24/17 08:20 06:30 06:10 WBC 7.2 RBC 2.82 L Hgb 7.5 L Hct 23.3 L MCV 82.6 MCH 26.6 MCHC 32.2 RDW 18.4 H Plt Count 162 MPV 9.0 Gran % 74.2 H Lymph % (Auto) 8.3 L [place] % (Auto) 16.8 H Eos % (Auto) 0.4 L Baso % (Auto) 0.3 Gran # 5.36 Lymph # (Auto) 0.6 L [place] # (Auto) 1.2 H Eos # (Auto) 0.0 Baso # (Auto) 0.02 Sodium Potassium Chloride Carbon Dioxide Anion Gap BUN Creatinine Est GFR ( Amer) Est GFR (Non-Af Amer) Random Glucose Hemoglobin A1c 6.0 Calcium Phosphorus Magnesium PTH Intact Whole Molec 649 H Complement C3 Complement C4 Hepatitis A IgM Ab Hep Bs Antigen Hep B Core IgM Ab Hepatitis C Antibody 12/24/17 12/24/17 12/24/17 06:10 10:23 10:30 WBC RBC Hgb Hct MCV MCH MCHC RDW Plt Count MPV Gran % Lymph % (Auto) [place] % (Auto) Eos % (Auto) Baso % (Auto) Gran # Lymph # (Auto) [place] # (Auto) Eos # (Auto) Baso # (Auto) Sodium 141 Potassium 5.2 H Chloride 107 Carbon Dioxide 26 Anion Gap 13 BUN 56 H Creatinine 3.2 H Est GFR ( Amer) 22 Est GFR (Non-Af Amer) 18 Random Glucose 89 Hemoglobin A1c Calcium 9.1 Phosphorus 4.1 Magnesium 2.2 PTH Intact Whole Molec Complement C3 101.0 Complement C4 35.7 Hepatitis A IgM Ab Negative Hep Bs Antigen Negative Hep B Core IgM Ab Negative Hepatitis C Antibody Negative Attending/Attestation - Attestation I have personally seen and examined this patient.: Yes I have fully participated in the care of the patient.: Yes I have reviewed all pertinent clinical information: Yes Notes (Text): This is an addendum to GI consult report dictated by the Financial Systems Administrator.The patient was seen and evaluated earlier. Medical records, lab studies, imagings were reviewed. Last 24 hours events reviewed. Agreed with the above treatment plan as outlined in Financial Systems Administrator 's notes with the addition of the following This patient is admitted with anemia shortness of breathe Patient is being evaluated by cardiology Would benefit from EGD and colonoscopy to further evaluate the GI source of anemia Would request CT of abdomen and pelvis to further evaluate Consider EGD tomorrow if cleared by cardiology and further optimization of the pulmonary status 12/24/17 19:40
[2017-12-24 15:42] LABS: COMPLEMENT C4 35.7 mg/dL (14.0-44.0)
[2017-12-24 16:05] LABS: HEPATITIS B SURFACE AG Negative (NEGATIVE)
[2017-12-24 16:11] LABS: HEPATITIS A IGM NEGATIVE (NEGATIVE); HEPATITIS B CORE AB NEGATIVE (NEGATIVE)
[2017-12-24 16:22] LABS: HEPATITIS C ANTIBODY NEGATIVE (NEGATIVE)
--- NOTE | 2017-12-24 18:33 | CT ---
Date of service: 12/24/2017 PROCEDURE: CT Abdomen and Pelvis with contrast HISTORY: evaluation for severe anemia COMPARISON: 12/21/2017 renal ultrasound TECHNIQUE: Intravenous contrast dose: Oral contrast only. Radiation dose: Total exam DLP = 868.97 mGy-cm. This CT exam was performed using one or more of the following dose reduction techniques: Automated exposure control, adjustment of the mA and/or kV according to patient size, and/or use of iterative reconstruction technique. FINDINGS: LOWER THORAX: Small bilateral pleural effusions. Associated compressive atelectasis at the lung bases. Cardiomegaly without visible pericardial effusion. LIVER: Unremarkable. No gross lesion or ductal dilatation. GALLBLADDER AND BILE DUCTS: Cholelithiasis without CT evidence of acute cholecystitis. PANCREAS: Unremarkable. No gross lesion or ductal dilatation. SPLEEN: Unremarkable. ADRENALS: Unremarkable. No mass. KIDNEYS AND URETERS: Unremarkable. No hydronephrosis. No solid mass. VASCULATURE: Densely calcified abdominal aorta and iliac vessels. 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 BOWEL: Constipation without fecal impaction or obstruction. Diverticulosis without an acute inflammatory component or other associated pathologic process. APPENDIX: Normal appendix. PERITONEUM: Unremarkable. No free fluid. No free air. LYMPH NODES: Unremarkable. No enlarged lymph nodes. BLADDER: Collapsed urinary bladder, Mann catheter identified. Bladder wall thickening suggests a component of cystitis. REPRODUCTIVE: Markedly enlarged prostate. BONES: No acute fracture. OTHER FINDINGS: None. IMPRESSION: No significant findings to account for the clinical presentation of anemia. Additional benign and/or incidental findings described above.
--- NOTE | 2017-12-25 01:03 | PN ---
DATE: 12/24/2017 PULMONARY PROGRESS NOTE REFERRING PHYSICIAN: Irasema Rivas MD SUBJECTIVE: He is sitting up in the bed having dinner. Night was unremarkable, evaluated by speech therapy, on modified diet. Still has some cough and wheezing. No nausea, vomiting, diarrhea. No leg pain or leg swelling. OBJECTIVE: GENERAL: In no acute distress. VITAL SIGNS: Temperature is 98, heart rate 90, respiratory rate is 20, blood pressure 146/62, pulse of 99%, 2 liters nasal cannula. HEENT: Moist mucous membrane. Crowded airway. NECK: Supple. No JVD. LUNGS: Have a few crackles, expiratory wheezing. HEART: S1 and S2. ABDOMEN: Soft, nontender, no organomegaly. EXTREMITIES: No edema. NEUROLOGIC: Awake and alert. Follows simple command. MEDICATIONS: He is on hydralazine 10 mg four times a day p.r.n., aspirin 81 mg daily, Brovana inhaled twice a day, DuoNeb every 4 hour p.r.n., Flomax 0.4 mg daily, Lipitor 40 mg daily, Namenda 10 mg daily, gabapentin 300 mg twice a day, Neurontin 300 mg twice a day, Nicoderm patch daily, Protonix 20 mg daily, Pulmicort inhaled twice a day, Singulair 10 mg daily, Synthroid 25 mcg daily. LABORATORY DATA: Shows hemoglobin 7.5, hematocrit 23.3, WBC 7.2, platelet is 162. Sodium 141, potassium 5.2, chloride 107, bicarbonate 26, BUN 56, creatinine 3.2, calcium 9.1, phosphorus 4.1, magnesium 2.2, AST 34, ALT 23, alk phos is 79. Albumin is 2.8. He has a CAT scan of the abdomen and pelvis done today which shows no significant finding to account for clinical presentation of anemia, small bilateral pleural effusion associated with compressive atelectasis, cardiomegaly, cholelithiasis, also has some constipation. IMPRESSION AND PLAN: Chronic obstructive lung disease, cardiomyopathy with pulmonary hypertension, cardiac diastolic dysfunction, coronary artery disease, hypertension, hyperlipidemia, active smoker, iron-deficiency anemia, renal failure. Pulmonary point of view, doing okay. Keep head at 45 degrees, inhaled bronchodilator, aspiration precaution. 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 SCD to lower extremity. Gastrointestinal and Cardiology followup. Out of bed to chair. Fall precaution. Follow up labs in the morning. Thank you and we will follow with you. Radha Vail MD
[2017-12-25] MEDS: Levothyroxine 25 MCG TAB PO SCH (05:47)
[2017-12-25] MEDS: Pantoprazole 20 mg EC Tab PO SCH (05:47)
[2017-12-25] MEDS: Budesonide 0.5 mg/2 ml Inhal Susp UD IH SCH ×2 (07:24→20:05)
[2017-12-25] MEDS: Arformoterol 15 mcg/2 ml Inh Sol IH SCH ×2 (07:24→20:04)
--- NOTE | 2017-12-25 07:24 | CP.PCM.PN ---
Subjective - Date & Time of Evaluation Date of Evaluation: 12/25/17 Time of Evaluation: 06:30 - Subjective Subjective: Awake, alert , no distress, lying in bed Reason for consultation and follow up: Cardiac evaluation for elevated BNP, rule out congestive heart failure Seen and examined by me and Dr. Woodward Objective - Vital Signs/Intake and Output Vital Signs (last 24 hours): Temp Pulse Resp BP Pulse Ox 97.8 F 90 20 146/62 99 12/24/17 14:00 12/24/17 14:00 12/24/17 14:00 12/24/17 14:00 12/24/17 14:00 Intake and Output: 12/25/17 12/25/17 06:59 18:59 Output Total 450 Balance -450 - Medications Medications: Current Medications Albuterol/Ipratropium (Duoneb 3 Mg/0.5 Mg (3 Ml) Ud) 3 ml IH [id number] PRN PRN Reason: Shortness of Breath Last Admin: 12/24/17 08:24 Dose: 3 ml Arformoterol Tartrate (Brovana) 15 mcg IH [id number] [facility] Last Admin: 12/24/17 20:47 Dose: 15 mcg Aspirin (Aspirin Chewable) 81 mg PO DAILY [facility] Last Admin: 12/24/17 09:56 Dose: 81 mg Atorvastatin Calcium (Lipitor) 40 mg PO HS [facility] Last Admin: 12/24/17 21:17 Dose: 40 mg Budesonide (Pulmicort Respules) 0.5 mg IH [id number] [facility] Last Admin: 12/24/17 20:47 Dose: 0.5 mg Gabapentin (Neurontin) 300 mg PO BID [facility]; Protocol Last Admin: 12/24/17 18:22 Dose: 300 mg Hydralazine HCl (Apresoline) 10 mg PO QID PRN PRN Reason: for SBP>160 Levothyroxine Sodium (Synthroid) 25 mcg PO 0600 [facility] Last Admin: 12/25/17 05:47 Dose: 25 mcg Memantine (Namenda) 10 mg PO DAILY [facility] Last Admin: 12/24/17 10:00 Dose: 10 mg Montelukast Sodium (Singulair) 10 mg PO HS [facility] Last Admin: 12/24/17 21:17 Dose: 10 mg Nicotine (Nicoderm Cq) 1 patch TD DAILY [facility] Last Admin: 12/24/17 10:00 Dose: 1 patch Pantoprazole Sodium (Protonix Ec Tab) 20 mg PO 0600 [facility] Last Admin: 12/25/17 05:47 Dose: 20 mg Tamsulosin HCl (Flomax) 0.4 mg PO DAILY [facility] Last Admin: 12/24/17 10:00 Dose: 0.4 mg - Labs Labs: 12/24/17 06:10 12/24/17 06:10 - Constitutional Appears: Non-toxic, No Acute Distress - Head Exam Head Exam: NORMAL INSPECTION, NORMOCEPHALIC - ENT Exam ENT Exam: Mucous Membranes Dry - Respiratory Exam Respiratory Exam: Clear to Ausculation Bilateral, NORMAL BREATHING PATTERN - Cardiovascular Exam Cardiovascular Exam: +S1, +S2 - GI/Abdominal Exam GI & Abdominal Exam: Soft, Normal Bowel Sounds - Extremities Exam Extremities Exam: Full ROM - Neurological Exam Neurological Exam: Alert, Awake Additional comments: confuse - Skin Skin Exam: Dry, Normal Color, Warm Assessment and Plan - Assessment and Plan (Free Text) Assessment: An 87 year old male who was brought in from [facility] due to low hemoglobin.History of COPD,chronic diastolic CHF, hypertension, hyperlipidemia, dementia,anemia, coronary artery disease post CABG,cardiomyopathy, LVEF from ECHO 20%, AICD. Admitted for acute renal injury, severe anemia. Blood transfusion of 2 units PRBC given.On iron infusion.Repeat H/H stable. Confuse, GI work up. For EGD today. Plan: No distress, no shortness of breath Heart rate and blood pressure stable Awake,alert but confuse,pulled IV and sol catheter For EGD today,kept NPO Repeat H/H 7.08/08 post transfusion of 2 units PRBC Continue Iron IV infusion for anemia Continue current treatment Continue current medications Fall precaution Chart reviewed Will follow up Plan and treatment discussed with Dr. Woodward
--- NOTE | 2017-12-25 07:51 | CP.PCM.PN ---
<Isa Stark - Last Filed: 12/25/17 12:28> Subjective - Date & Time of Evaluation Date of Evaluation: 12/25/17 Time of Evaluation: 07:50 - Subjective Subjective: PGY-3 Nephrology Progress Note for Dr. Andrade Patient seen and examined at bedside. patient continued to be placed on restraints due to pulling his sol and IV per nurse. Patient is resting comfortably in bed but states that his sol is uncomfortable. He denies pain, chest pain, shortness of breath, nausea, vomiting, diarrhea. Objective - Vital Signs/Intake and Output Vital Signs (last 24 hours): Temp Pulse Resp BP Pulse Ox 97.8 F 90 20 146/62 99 12/24/17 14:00 12/24/17 14:00 12/24/17 14:00 12/24/17 14:00 12/24/17 14:00 Intake and Output: 12/25/17 12/25/17 06:59 18:59 Output Total 450 Balance -450 - Medications Medications: Current Medications Albuterol/Ipratropium (Duoneb 3 Mg/0.5 Mg (3 Ml) Ud) 3 ml IH [id number] PRN PRN Reason: Shortness of Breath Last Admin: 12/24/17 08:24 Dose: 3 ml Arformoterol Tartrate (Brovana) 15 mcg IH [id number] [facility] Last Admin: 12/25/17 07:24 Dose: 15 mcg Aspirin (Aspirin Chewable) 81 mg PO DAILY [facility] Last Admin: 12/24/17 09:56 Dose: 81 mg Atorvastatin Calcium (Lipitor) 40 mg PO HS [facility] Last Admin: 12/24/17 21:17 Dose: 40 mg Budesonide (Pulmicort Respules) 0.5 mg IH [id number] [facility] Last Admin: 12/25/17 07:24 Dose: 0.5 mg Gabapentin (Neurontin) 300 mg PO BID [facility]; Protocol Last Admin: 12/24/17 18:22 Dose: 300 mg Hydralazine HCl (Apresoline) 10 mg PO QID PRN PRN Reason: for SBP>160 Levothyroxine Sodium (Synthroid) 25 mcg PO 0600 [facility] Last Admin: 12/25/17 05:47 Dose: 25 mcg Memantine (Namenda) 10 mg PO DAILY [facility] Last Admin: 12/24/17 10:00 Dose: 10 mg Montelukast Sodium (Singulair) 10 mg PO HS [facility] Last Admin: 12/24/17 21:17 Dose: 10 mg Nicotine (Nicoderm Cq) 1 patch TD DAILY [facility] Last Admin: 12/24/17 10:00 Dose: 1 patch Pantoprazole Sodium (Protonix Ec Tab) 20 mg PO 0600 [facility] Last Admin: 12/25/17 05:47 Dose: 20 mg Tamsulosin HCl (Flomax) 0.4 mg PO DAILY [facility] Last Admin: 12/24/17 10:00 Dose: 0.4 mg - Labs Labs: 12/24/17 06:10 12/24/17 06:10 - Additional Findings Additional findings: Patient on wrist restraints - Constitutional Appears: No Acute Distress - Head Exam Head Exam: ATRAUMATIC, NORMAL INSPECTION, NORMOCEPHALIC - Eye Exam Eye Exam: Normal appearance, PERRL - ENT Exam ENT Exam: Mucous Membranes Moist - Respiratory Exam Respiratory Exam: Clear to Ausculation Bilateral, NORMAL BREATHING PATTERN. absent: Rales, Rhonchi, Wheezes - Cardiovascular Exam Cardiovascular Exam: REGULAR RHYTHM, +S1, +S2, Murmur. absent: Gallop, Rubs - GI/Abdominal Exam GI & Abdominal Exam: Soft, Normal Bowel Sounds. absent: Rigid, Tenderness, Mass, Rebound - Extremities Exam Extremities Exam: Normal Inspection. absent: Calf Tenderness, Pedal Edema - Neurological Exam Neurological Exam: Alert, CN II-XII Intact. absent: Motor Sensory Deficit, Oriented x3 - Psychiatric Exam Psychiatric exam: Normal Affect, Normal Mood - Skin Skin Exam: Dry, Normal Color, Warm Assessment and Plan - Assessment and Plan (Free Text) Assessment: UZAIR on CKD stage IV - secondary to dehydration and bleed Acute on chronic anemia - s/p 2U PRBC Hematuria Hypovolemia Iron deficiency anemia Hyperkalemia- resolved Essential HTN Plan: Labs and imaging reviewed. No plan for renal replacement at this time. Creatinine is improving, will roder work up including urine protein, creatinine ratio, SPEP, UPEP, HARLAN, anca. PTH is elevated, will start calcitriol. HIV, hep B, hep C are negative. Patient received 2 dose of Venofer, and 2 units prbc. Will continue to monitor kidney function and electrolytes. Continue to monitor I&O. Patient is on gentle hydration for hypovolemia. Case seen, discussed and reviewed with Dr. Andrade. <Spencer Andrade S - Last Filed: 12/25/17 16:20> Objective - Vital Signs/Intake and Output Vital Signs (last 24 hours): Temp Pulse Resp BP Pulse Ox 98.5 F 96 H 20 158/78 H 94 L 12/25/17 14:51 12/25/17 14:51 12/25/17 14:51 12/25/17 14:51 12/25/17 14:20 Intake and Output: 12/25/17 12/25/17 06:59 18:59 Intake Total 279 Output Total 450 Balance -450 279 - Medications Medications: Current Medications Albuterol/Ipratropium (Duoneb 3 Mg/0.5 Mg (3 Ml) Ud) 3 ml IH [id number] PRN PRN Reason: Shortness of Breath Last Admin: 12/24/17 08:24 Dose: 3 ml Arformoterol Tartrate (Brovana) 15 mcg IH [id number] [facility] Last Admin: 12/25/17 07:24 Dose: 15 mcg Aspirin (Aspirin Chewable) 81 mg PO DAILY [facility] Last Admin: 12/25/17 10:44 Dose: Not Given Atorvastatin Calcium (Lipitor) 40 mg PO HS [facility] Last Admin: 12/24/17 21:17 Dose: 40 mg Budesonide (Pulmicort Respules) 0.5 mg IH [id number] [facility] Last Admin: 12/25/17 07:24 Dose: 0.5 mg Calcitriol (Rocaltrol) 0.5 mcg PO DAILY [facility] Last Admin: 12/25/17 10:45 Dose: Not Given Gabapentin (Neurontin) 300 mg PO BID [facility]; Protocol Last Admin: 12/25/17 10:45 Dose: Not Given Hydralazine HCl (Apresoline) 10 mg PO QID PRN PRN Reason: for SBP>160 Sodium Chloride (Sodium Chloride 0.9%) 1,000 mls @ 100 mls/hr IV .Q10H [facility] Levothyroxine Sodium (Synthroid) 25 mcg PO 0600 [facility] Last Admin: 12/25/17 05:47 Dose: 25 mcg Memantine (Namenda) 10 mg PO DAILY [facility] Last Admin: 12/25/17 10:45 Dose: Not Given Montelukast Sodium (Singulair) 10 mg PO HS [facility] Last Admin: 12/24/17 21:17 Dose: 10 mg Nicotine (Nicoderm Cq) 1 patch TD DAILY [facility] Last Admin: 12/25/17 10:49 Dose: 1 patch Pantoprazole Sodium (Protonix Ec Tab) 20 mg PO 0600 [facility] Last Admin: 12/25/17 05:47 Dose: 20 mg Tamsulosin HCl (Flomax) 0.4 mg PO DAILY [facility] Last Admin: 12/25/17 10:44 Dose: Not Given - Labs Labs: 12/25/17 08:00 12/25/17 08:00 Assessment and Plan - Assessment and Plan (Free Text) Plan: Pt seen and examined by me. I have reviewed the note by the medical device. The case was discussed and reviewed with the resident. I reviewed the medications and labs. Pt with UZAIR that is improving. Serology work up in progress. Pt will be given Venofer for iron def anemia. His PTH is elevated due to secondary hyperparathyroidism. He will be started on Calcitriol. SPEP/UPEP to evaluate for myeloma. He is going for endoscopy.
--- NOTE | 2017-12-25 08:17 | PN ---
DATE: 12/24/2017 SUBJECTIVE: The patient was seen and examined on the bedside on 12/24/2017. Looking comfortable. No overnight event happened except that restrained because the patient was pulling IV lines and Mann catheter. The patient is resting. No fever. No chills. No nausea, vomiting, diarrhea. No hematuria or hematochezia. No headache. No dizziness. PHYSICAL EXAMINATION: VITAL SIGNS: Temperature 98.1, pulse 85, respiratory rate 19, blood pressure 156/68, pulse oximetry 100. HEENT: Head normocephalic, atraumatic. Eyes PERRLA. Extraocular muscles intact. Conjunctivae clear. Nose patent. Mucous membrane moist. NECK: Supple. No carotid bruit. No JVD or thyromegaly. CHEST: Bilaterally symmetrical. HEART: S1 and S2 positive. LUNGS: Clear to auscultation. ABDOMEN: Soft. Bowel sounds positive. No organomegaly. EXTREMITIES: No edema. No cyanosis. NEUROLOGICAL: The patient is awake and alert. Moving all 4 extremities. No focal deficits. MEDICATIONS: DuoNeb, Brovana, aspirin, Lipitor, Pulmicort, Neurontin, hydralazine, iron, levothyroxine, Namenda, Singulair, Nicoderm patch, Protonix, Flomax. LABORATORY DATA: White blood cells 7.2, hemoglobin 7.5, hematocrit 23.3, platelets 162. Sodium 141, potassium 5.2, BUN 56, creatinine 3.2, glucose 89. ASSESSMENT AND PLAN: Mr. Faraz Zuñiga, 87-year-old male with hyperkalemia, renal insufficiency, has acute kidney injury on chronic kidney disease stage 4 secondary to dehydration and bleeding, acute on chronic anemia, status post 2 units of packed RBC, hematuria, hypovolemia, iron deficiency, hyperkalemia resolved, essential hypertension, dementia. According to Nephrology, no plan for renal replacement at this time. Currently, creatinine is improving, though slowly. Nut Tapper ordered some workup. H and H are stable after blood transfusion. The patient got dose of Venofer. Continue monitoring the kidney function test, electrolytes. Physical therapy, out of bed. We will follow up. Irasema Rivas MD
[2017-12-25 08:29] LABS: BASO # 0.05 K/mm3 (0.0-2.0); BASO % 0.8 % (0.0-3.0); EOS # 0.1 (0.0-0.7); EOS % 1.3 % (1.5-5.0); GRAN # 4.43 (1.4-6.5); GRAN % 73.5 % (50.0-68.0); LYMPH # 0.5 (1.2-3.4); LYMPH % 8.1 % (22.0-35.0); MEAN CELL VOLUME 82.5 fl (80.0-105.0); MEAN CORPUSCULAR HEMOGLOBIN 26.6 pg (25.0-35.0); MEAN CORPUSCULAR HGB CONC 32.3 g/dl (31.0-37.0); MEAN PLATELET VOLUME 9.3 fl (7.0-11.0); MONO % 16.3 % (1.0-6.0); RBC 2.63 10^6/uL (3.5-6.1); RED CELL DISTRIBUTION WIDTH 18.5 % (11.5-14.5)
[2017-12-25 08:41] LABS: CALCIUM 9.6 mg/dL (8.4-10.5)
[2017-12-25] MEDS ORDERED: Etomidate 20 mg/10ml Inj IV ONE (15:22)
[2017-12-25] MEDS ORDERED: Sodium Chloride 0.9% 1,000 ML IV SCH (16:15)
--- NOTE | 2017-12-26 00:53 | PN ---
DATE: 12/25/2017 PULMONARY PROGRESS NOTE REFERRING PHYSICIAN: Irasema Rivas MD SUBJECTIVE: He is lying in the bed, head at 45 degrees. Just finished his dinner. Still has some cough. Getting ready to get transfusion. Apparently, he was confused while on his Hep-Lock. No nausea, no vomiting, no diarrhea. No leg pain or leg swelling. OBJECTIVE: GENERAL: In no acute distress. VITAL SIGNS: Temperature is 98, heart rate is 101, respiratory rate is 20, blood pressure 140/69, pulse ox 90% on room air. HEENT: Moist mucous membrane. Crowded airway. Mallampati score is 4. NECK: Supple. No JVD. LUNGS: Have prolonged expiratory phase with some wheezing. HEART: S1 and S2. ABDOMEN: Soft, nontender, no organomegaly. EXTREMITIES: No edema. NEUROLOGIC: Awake, alert. Follows simple commands. MEDICATIONS: He is on hydralazine 10 mg four times a day p.r.n., aspirin 81 mg daily, Brovana inhaled twice a day, DuoNeb every 4 hours. p.r.n., Flomax 0.4 mg daily, Lipitor 40 mg at bedtime, Namenda 10 mg daily, gabapentin 300 mg twice a day, Nicoderm patch daily, Protonix 20 mg daily, Pulmicort inhaled twice a day, calcitriol 0.5 mcg p.o. daily, Singulair 10 mg daily, IV fluid normal saline 100 mL per hour, Synthroid 25 mcg daily. LABORATORY DATA: Shows hemoglobin 7, hematocrit 21.7, WBC 6, platelet count is 147. Sodium 140, potassium 5.3, chloride 108, bicarbonate 25, BUN 53, creatinine 2.7, glucose 82, calcium is 9.6. Has an endoscopy done today shows there is some blood in the stomach, a single bleeding angiodysplastic lesion in the stomach - injected. 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 IMPRESSION AND PLAN: Chronic obstructive lung disease, cardiomyopathy with pulmonary hypertension, cardiac diastolic dysfunction, coronary artery disease, hypertension, hyperlipidemia, history of active smoking, iron-deficiency anemia, renal failure. 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 Pulmonary point of view, doing okay. Continue bronchodilator. Will be transfused. Also on IV fluid. Need to be very careful, does not end up in pulmonary edema. Keep head elevated at 45 degrees. Follow up labs in the morning. Thank you and we will follow with you. Radha Vail MD
--- NOTE | 2017-12-26 05:01 | PN ---
DATE: 12/25/2017 SUBJECTIVE: Patient is an 87-year-old male. Patient was seen and examined on the bedside on 12/25/2017, looking comfortable. Still has restrained because of pulling his Mann and IV lines as per nursing staff. Denies fever or chills. No shortness of breath, nausea, vomiting, or diarrhea. Today went for endoscopy. PHYSICAL EXAMINATION: VITAL SIGNS: Temperature 97.8, pulse 90, respiratory rate 20, blood pressure 143/62, pulse oximetry 99%. HEENT: Head: Normocephalic, atraumatic. Eyes: PERRLA. Extraocular muscles intact. Conjunctivae clear. Nose patent. Mucous membrane moist. NECK: Supple. No carotid bruit, JVD, or thyromegaly. CHEST: Bilaterally symmetrical. HEART: S1 and S2 positive. LUNGS: Clear to auscultation. ABDOMEN: Soft. Bowel sounds present. No organomegaly. EXTREMITIES: No edema. No cyanosis. NEUROLOGIC: Patient is awake and alert. Moving all 4 extremities. No focal deficit. MEDICATIONS: DuoNeb, Brovana, aspirin, Lipitor, Pulmicort, gabapentin, hydralazine, levothyroxine, Namenda, Singulair, Nicoderm, Protonix, Flomax. LABORATORY DATA: White blood cells 7.2, hemoglobin 7.5, hematocrit 23.3, platelets 162. Sodium 141, potassium 5.2, BUN 56, creatinine 3.2, glucose 89. ASSESSMENT AND PLAN: Mr. Faraz Zuñiga is an 87-year-old male with hyperkalemia; renal insufficiency; anemia, status post blood transfusion 2 packed units today; acute kidney injury on chronic kidney disease stage IV secondary to dehydration and bleeding; acute on chronic anemia, status post 2 units packed red blood cells; hematuria; hypovolemia; iron deficiency; essential hypertension. According to Nephrology, no plan for renal replacement at this time. Creatinine is improving. We will order workup including urine protein, creatinine and other tests. Patient received 2 units of Venofer. Continue monitoring kidney function test, electrolytes. Patient is on gentle hydration for hypovolemia as per supervisor furnace process. Patient went for endoscopy today by Dr. Murdock. Actually, patient has esophagogastroduodenoscopy with biopsy, esophagogastroduodenoscopy with sclerotherapy, esophagogastroduodenoscopy with biopsy cauterization, esophagogastroduodenoscopy with clipping because there was active bleeding. Multiple duodenal arteriovenous malformations, gastric arteriovenous malformations as Dieulafoy lesion. Discussion done with Dr. Murdock about patient's endoscopy report. CAT scan of abdomen and pelvis reviewed. Seen by the mud plant operator. History of chronic diastolic congestive heart failure, hypercholesterolemia, dementia, coronary artery disease, post coronary artery bypass grafting, cardiomyopathy, left ventricular ejection fraction is 20%, automatic implantable cardioverter-defibrillator. No distress. No shortness of breath. Awake and alert, but confused, pulling IV lines and Mann catheter, so has been restrained. We will repeat hemoglobin and hematocrit. Fall precaution. We will follow up. Irasema Rivas MD
[2017-12-26] MEDS: Pantoprazole 20 mg EC Tab PO SCH (05:54)
[2017-12-26] MEDS: Levothyroxine 25 MCG TAB PO SCH (05:54)
[2017-12-26 06:40] LABS: ALBUMIN (PEP) 2.7 g/dL (3.8-4.8); ALPHA-1-GLOBULIN (PEP) 0.5 g/dL (0.2-0.3)
[2017-12-26] MEDS: Budesonide 0.5 mg/2 ml Inhal Susp UD IH SCH ×2 (07:09→19:55)
[2017-12-26] MEDS: Arformoterol 15 mcg/2 ml Inh Sol IH SCH ×2 (07:09→19:55)
--- NOTE | 2017-12-26 07:15 | CP.PCM.PN ---
<Isa Stark - Last Filed: 12/26/17 09:47> Subjective - Date & Time of Evaluation Date of Evaluation: 12/26/17 Time of Evaluation: 07:13 - Subjective Subjective: PGY-3 Nephrology Progress Note for Dr. Andrade Patient seen and examined at bedside. Patient is resting comfortably in bed but is confused and is placed on restraints due to pulling. Patient received 2 unots pRBC yesterday. Patient went fro EGD yesterday found to have bleeding angiodysplastic lesion which was injected and clipped. Nurse reports elevated blood pressure overnight. He denies pain, chest pain, shortness of breath, nausea, vomiting, diarrhea. Objective - Vital Signs/Intake and Output Vital Signs (last 24 hours): Temp Pulse Resp BP Pulse Ox 98.7 F 111 H 20 176/86 H 97 12/25/17 23:58 12/26/17 05:54 12/26/17 01:30 12/26/17 05:54 12/26/17 01:30 Intake and Output: 12/26/17 12/26/17 06:59 18:59 Intake Total 610 Output Total 1425 Balance -815 - Medications Medications: Current Medications Albuterol/Ipratropium (Duoneb 3 Mg/0.5 Mg (3 Ml) Ud) 3 ml IH [id number] PRN PRN Reason: Shortness of Breath Last Admin: 12/24/17 08:24 Dose: 3 ml Arformoterol Tartrate (Brovana) 15 mcg IH [id number] [facility] Last Admin: 12/26/17 07:09 Dose: 15 mcg Aspirin (Aspirin Chewable) 81 mg PO DAILY [facility] Last Admin: 12/25/17 10:44 Dose: Not Given Atorvastatin Calcium (Lipitor) 40 mg PO HS [facility] Last Admin: 12/25/17 21:58 Dose: 40 mg Budesonide (Pulmicort Respules) 0.5 mg IH [id number] [facility] Last Admin: 12/26/17 07:09 Dose: 0.5 mg Calcitriol (Rocaltrol) 0.5 mcg PO DAILY [facility] Last Admin: 12/25/17 17:44 Dose: 0.5 mcg Gabapentin (Neurontin) 300 mg PO BID [facility]; Protocol Last Admin: 12/25/17 17:45 Dose: 300 mg Hydralazine HCl (Apresoline) 10 mg PO QID PRN PRN Reason: for SBP>160 Last Admin: 12/26/17 05:54 Dose: 10 mg Sodium Chloride (Sodium Chloride 0.9%) 1,000 mls @ 100 mls/hr IV .Q10H [facility] Levothyroxine Sodium (Synthroid) 25 mcg PO 0600 [facility] Last Admin: 12/26/17 05:54 Dose: 25 mcg Memantine (Namenda) 10 mg PO DAILY [facility] Last Admin: 12/25/17 17:46 Dose: 10 mg Montelukast Sodium (Singulair) 10 mg PO HS [facility] Last Admin: 12/25/17 21:59 Dose: 10 mg Nicotine (Nicoderm Cq) 1 patch TD DAILY [facility] Last Admin: 12/25/17 10:49 Dose: 1 patch Pantoprazole Sodium (Protonix Ec Tab) 20 mg PO 0600 [facility] Last Admin: 12/26/17 05:54 Dose: 20 mg Tamsulosin HCl (Flomax) 0.4 mg PO DAILY [facility] Last Admin: 12/25/17 17:45 Dose: 0.4 mg - Labs Labs: 12/25/17 08:00 12/25/17 08:00 - Additional Findings Additional findings: Patient on wrist restraints, sol in place kelsi urine - Constitutional Appears: No Acute Distress - Head Exam Head Exam: ATRAUMATIC, NORMAL INSPECTION, NORMOCEPHALIC - Eye Exam Eye Exam: Normal appearance, PERRL - ENT Exam ENT Exam: Mucous Membranes Moist - Respiratory Exam Respiratory Exam: Clear to Ausculation Bilateral, NORMAL BREATHING PATTERN. absent: Rales, Rhonchi, Wheezes - Cardiovascular Exam Cardiovascular Exam: REGULAR RHYTHM, +S1, +S2, regular rate, absent: Gallop, Rubs, murmur - GI/Abdominal Exam GI & Abdominal Exam: Soft, Normal Bowel Sounds. absent: Rigid, Tenderness, Mass, Rebound - Extremities Exam Extremities Exam: Normal Inspection. absent: Calf Tenderness, Pedal Edema - Neurological Exam Neurological Exam: Alert, CN II-XII Intact. confusion absent: Motor Sensory Deficit, Oriented x3 - Psychiatric Exam Psychiatric exam: Normal Affect, Normal Mood, absent: anxious, depression - Skin Skin Exam: Dry, Normal Color, Warm Assessment and Plan - Assessment and Plan (Free Text) Assessment: UZAIR on CKD stage IV - secondary to dehydration and bleed Acute on chronic anemia - s/p 4Units PRBC bleeding angiodysplastic lesion- injected and clipped gastritis Hematuria Hypovolemia Iron deficiency anemia Hyperkalemia- improved Essential HTN Plan: Labs and imaging reviewed. No plan for renal replacement at this time. Creatinine is improving, continue to monitor. Follow up SPEP and UPEP. HARLAN and anca negative. PTH is elevated, continue calcitriol. HIV, hep B, hep C are negative. Patient received 2 dose of Venofer, and 4 units prbc. EGD done yesterday showed bleeding angiodysplastic lesion which was injected and clipped. Patient has uncontorlled HTN, will start amlodipine 10mg and give dose of lasix. Will continue to monitor kidney function and electrolytes. Continue to monitor I&O. Patient is on gentle hydration for hypovolemia. Case seen, discussed and reviewed with Dr. Andrade. <Spencer Andrade S - Last Filed: 01/01/18 20:42> Objective - Vital Signs/Intake and Output Vital Signs (last 24 hours): Temp Pulse Resp BP Pulse Ox 97.7 F 72 18 127/60 100 01/01/18 18:31 01/01/18 18:31 01/01/18 18:31 01/01/18 18:31 01/01/18 06:00 Intake and Output: 01/01/18 01/02/18 18:59 06:59 Intake Total 50 Output Total 25 Balance 25 - Medications Medications: Current Medications Acetaminophen (Tylenol 325mg Tab) 650 mg PO Q6H PRN PRN Reason: Fever >100.4 F Last Admin: 12/31/17 01:25 Dose: 650 mg Albuterol/Ipratropium (Duoneb 3 Mg/0.5 Mg (3 Ml) Ud) 3 ml IH [id number] PRN PRN Reason: Shortness of Breath Last Admin: 12/26/17 19:55 Dose: 3 ml Albuterol/Ipratropium (Duoneb 3 Mg/0.5 Mg (3 Ml) Ud) 3 ml IH [id number] [facility] Last Admin: 01/01/18 19:49 Dose: 3 ml Arformoterol Tartrate (Brovana) 15 mcg IH [id number] [facility] Last Admin: 01/01/18 19:49 Dose: 15 mcg Aspirin (Ecotrin) 81 mg PO DAILY [facility] Last Admin: 01/01/18 12:06 Dose: 81 mg Atorvastatin Calcium (Lipitor) 40 mg PO HS [facility] Last Admin: 12/31/17 21:44 Dose: 40 mg Budesonide (Pulmicort Respules) 0.5 mg IH [id number] [facility] Last Admin: 01/01/18 19:49 Dose: 0.5 mg Calcitriol (Rocaltrol) 0.5 mcg PO DAILY [facility] Last Admin: 01/01/18 10:20 Dose: 0.5 mcg Gabapentin (Neurontin) 300 mg PO BID [facility]; Protocol Last Admin: 01/01/18 18:38 Dose: 300 mg Hydralazine HCl (Apresoline) 10 mg PO QID PRN PRN Reason: for SBP>160 Last Admin: 12/29/17 04:48 Dose: 10 mg Cefepime HCl (Maxipime 1gm) 1 gm in 100 mls @ 25 mls/hr IVPB Q24H [facility]; Protocol Stop: 01/06/18 14:31 Last Admin: 01/01/18 15:28 Dose: 25 mls/hr Daptomycin 500 mg/ Sodium (Chloride) 100 mls @ 200 mls/hr IV Q48H [facility] Stop: 01/06/18 10:16 Last Admin: 01/01/18 11:58 Dose: 200 mls/hr Levothyroxine Sodium (Synthroid) 25 mcg PO 0600 [facility] Last Admin: 01/01/18 06:58 Dose: 25 mcg Memantine (Namenda) 10 mg PO DAILY [facility] Last Admin: 01/01/18 10:20 Dose: 10 mg Metoprolol Tartrate (Lopressor) 12.5 mg PO BID [facility] Last Admin: 01/01/18 17:39 Dose: 12.5 mg Montelukast Sodium (Singulair) 10 mg PO HS [facility] Last Admin: 12/31/17 21:44 Dose: 10 mg Nicotine (Nicoderm Cq) 1 patch TD DAILY [facility] Last Admin: 01/01/18 10:20 Dose: 1 patch Nitroglycerin (Nitro-Bid 2% Oint) 0.5 ea TOP Q6H [facility] Last Admin: 01/01/18 17:39 Dose: 0.5 ea Pantoprazole Sodium (Protonix Ec Tab) 20 mg PO 0600 [facility] Last Admin: 01/01/18 06:58 Dose: 20 mg Tamsulosin HCl (Flomax) 0.4 mg PO DAILY [facility] Last Admin: 01/01/18 10:20 Dose: 0.4 mg - Labs Labs: 01/01/18 20:00 01/01/18 07:30 PT 14.2 SECONDS (9.4-12.5) H 12/29/17 10:05 INR 1.23 12/29/17 10:05 APTT 29.6 Seconds (25.1-36.5) 12/29/17 10:05 Assessment and Plan - Assessment and Plan (Free Text) Plan: Pt seen and examined. This is a late entry. I have reviewed the note of the special forces medical sergeant and agree with it. I have discussed the assessment and plan with the resident. I have reviewed the patient's labs and medications. Pt with UZAIR that is improving. Serological work up is negative. Pt has been given Venofer for iron def anemia. Pt is on Amlodipine for HTN. Follow Cr. EGD was done and showed bleeding. BP controlled. Pt has episodes of confusion.
--- NOTE | 2017-12-26 07:27 | CP.PCM.PN ---
Subjective - Date & Time of Evaluation Date of Evaluation: 12/26/17 Time of Evaluation: 06:20 - Subjective Subjective: Awake, alert , no distress, lying in bed, confuse Reason for consultation and follow up: Cardiac evaluation for elevated BNP, rule out congestive heart failure Seen and examined by me and Dr. Woodward Objective - Vital Signs/Intake and Output Vital Signs (last 24 hours): Temp Pulse Resp BP Pulse Ox 98.7 F 111 H 20 176/86 H 97 12/25/17 23:58 12/26/17 05:54 12/26/17 01:30 12/26/17 05:54 12/26/17 01:30 Intake and Output: 12/26/17 12/26/17 06:59 18:59 Intake Total 610 Output Total 1425 Balance -815 - Medications Medications: Current Medications Albuterol/Ipratropium (Duoneb 3 Mg/0.5 Mg (3 Ml) Ud) 3 ml IH [id number] PRN PRN Reason: Shortness of Breath Last Admin: 12/24/17 08:24 Dose: 3 ml Arformoterol Tartrate (Brovana) 15 mcg IH [id number] [facility] Last Admin: 12/26/17 07:09 Dose: 15 mcg Aspirin (Aspirin Chewable) 81 mg PO DAILY [facility] Last Admin: 12/25/17 10:44 Dose: Not Given Atorvastatin Calcium (Lipitor) 40 mg PO HS [facility] Last Admin: 12/25/17 21:58 Dose: 40 mg Budesonide (Pulmicort Respules) 0.5 mg IH [id number] [facility] Last Admin: 12/26/17 07:09 Dose: 0.5 mg Calcitriol (Rocaltrol) 0.5 mcg PO DAILY [facility] Last Admin: 12/25/17 17:44 Dose: 0.5 mcg Gabapentin (Neurontin) 300 mg PO BID [facility]; Protocol Last Admin: 12/25/17 17:45 Dose: 300 mg Hydralazine HCl (Apresoline) 10 mg PO QID PRN PRN Reason: for SBP>160 Last Admin: 12/26/17 05:54 Dose: 10 mg Sodium Chloride (Sodium Chloride 0.9%) 1,000 mls @ 100 mls/hr IV .Q10H [facility] Levothyroxine Sodium (Synthroid) 25 mcg PO 0600 [facility] Last Admin: 12/26/17 05:54 Dose: 25 mcg Memantine (Namenda) 10 mg PO DAILY [facility] Last Admin: 12/25/17 17:46 Dose: 10 mg Montelukast Sodium (Singulair) 10 mg PO HS [facility] Last Admin: 12/25/17 21:59 Dose: 10 mg Nicotine (Nicoderm Cq) 1 patch TD DAILY [facility] Last Admin: 12/25/17 10:49 Dose: 1 patch Pantoprazole Sodium (Protonix Ec Tab) 20 mg PO 0600 [facility] Last Admin: 12/26/17 05:54 Dose: 20 mg Tamsulosin HCl (Flomax) 0.4 mg PO DAILY [facility] Last Admin: 12/25/17 17:45 Dose: 0.4 mg - Labs Labs: 12/25/17 08:00 12/25/17 08:00 - Constitutional Appears: Non-toxic, No Acute Distress - Head Exam Head Exam: NORMAL INSPECTION, NORMOCEPHALIC - Eye Exam Eye Exam: Normal appearance - ENT Exam ENT Exam: Mucous Membranes Dry - Respiratory Exam Respiratory Exam: Decreased Breath Sounds, Clear to Ausculation Bilateral, NORMAL BREATHING PATTERN - Cardiovascular Exam Cardiovascular Exam: +S1, +S2 - GI/Abdominal Exam GI & Abdominal Exam: Soft, Normal Bowel Sounds - Extremities Exam Extremities Exam: Full ROM, Normal Capillary Refill - Neurological Exam Neurological Exam: Alert, Awake Additional comments: confuse - Skin Skin Exam: Dry, Normal Color, Warm Assessment and Plan - Assessment and Plan (Free Text) Assessment: An 87 year old male who was brought in from [facility] due to low hemoglobin.History of COPD,chronic diastolic CHF, hypertension, hyperlipidemia, dementia,anemia, coronary artery disease post CABG,cardiomyopathy, LVEF from ECHO 20%, AICD. Admitted for acute renal injury, severe anemia. Blood transfusion of 2 units PRBC given.On iron infusion.Repeat H/H stable. Confuse, GI work up. Had EGD with clipping and biopsy yesterday, active bleeding with multiple duodenal arteriovenous malformations, gastric arteriovenous malformations as Dieulafoy lesion. Plan: Awake,no distress,confuse Post EGD yesterday No distress, no shortness of breath Heart rate and blood pressure stable Transfused 2 units PRBC yesterday Repeat H/H today Continue Iron IV infusion for anemia Continue current treatment Continue current medications Fall precaution Chart reviewed Will follow up Plan and treatment discussed with Dr. Woodward
[2017-12-26 07:57] LABS: BASO # 0.06 K/mm3 (0.0-2.0); BASO % 0.7 % (0.0-3.0); EOS # 0.1 (0.0-0.7); EOS % 1.2 % (1.5-5.0); GRAN # 6.42 (1.4-6.5); GRAN % 78.4 % (50.0-68.0); HEMOGLOBIN 8.6 g/dL (14.0-18.0); LYMPH # 0.9 (1.2-3.4); LYMPH % 11.2 % (22.0-35.0); MEAN CELL VOLUME 82.7 fl (80.0-105.0); MEAN CORPUSCULAR HEMOGLOBIN 26.6 pg (25.0-35.0); MEAN CORPUSCULAR HGB CONC 32.2 g/dl (31.0-37.0); MEAN PLATELET VOLUME 10.1 fl (7.0-11.0); MONO # 0.7 (0.1-0.6); MONO % 8.5 % (1.0-6.0); RBC 3.23 10^6/uL (3.5-6.1); RED CELL DISTRIBUTION WIDTH 17.8 % (11.5-14.5); WHITE BLOOD COUNT 8.2 10^3/ul (4.5-11.0)
[2017-12-26 08:15] LABS: CALCIUM 9.7 mg/dL (8.4-10.5)
[2017-12-26] MEDS ORDERED: Sodium Chloride 0.9% 1,000 ML IV SCH (08:20)
--- NOTE | 2017-12-26 08:53 | PN ---
DATE: 12/23/2017 REASON FOR CONSULTATION: Preop evaluation, risk stratification for endoscopy and colonoscopy, severe anemia, confused, two-point restraint. This note is an addition to the initial dictated by our nurse practitioner. Today, the patient's hemoglobin is 7. Ordered two units of packed RBC transfusion. Earlier, also on admission, I gave two units of blood. The patient is going for endoscopy today. No contraindication for endoscopy and colonoscopy. The patient has history of coronary artery disease, history of CABG, history of cardiomyopathy, most recent echo with ejection fraction 55%. Borderline-dilated right atrium, trace aortic regurgitation, normal mitral valve, mild mitral regurgitation. SUGGESTION: The patient is cleared to go for endoscopy and colonoscopy if needed with moderate risk because of underlying comorbidity. No absolute contraindication to endoscopy and colonoscopy (no evidence of arrhythmia, no evidence of congestive heart failure, no evidence of angina). The patient is cleared as mentioned to go for surgery with moderate risk because of underlying comorbidity. We will give two units of blood, packed RBC with Lasix 40 in between the packed RBC transfusion. We will repeat SMA-7 and CBC in the morning. We will put the clearance and physician nurse communication. Thank you, Dr. Rivas, for providing us the opportunity in taking care of the patient, Faraz Zuñiga. Radha Woodward MD
--- NOTE | 2017-12-26 10:22 | CP.PCM.PN ---
<Vipin Harper - Last Filed: 12/26/17 11:35> Subjective - Date & Time of Evaluation Date of Evaluation: 12/26/17 Time of Evaluation: 10:19 - Subjective Subjective: Patient is doing well this AM. He is tolerating diet. No complaints of abdominal pain. He had non bloody BM this AM. He is agreeable for colonoscopy tomorrow. Objective - Vital Signs/Intake and Output Vital Signs (last 24 hours): Temp Pulse Resp BP Pulse Ox 99.4 F 111 H 20 124/61 98 12/26/17 06:00 12/26/17 06:00 12/26/17 06:00 12/26/17 10:16 12/26/17 06:00 Intake and Output: 12/26/17 12/26/17 06:59 18:59 Intake Total 610 Output Total 1425 Balance -815 - Medications Medications: Current Medications Albuterol/Ipratropium (Duoneb 3 Mg/0.5 Mg (3 Ml) Ud) 3 ml IH [id number] PRN PRN Reason: Shortness of Breath Last Admin: 12/24/17 08:24 Dose: 3 ml Amlodipine Besylate (Norvasc) 10 mg PO DAILY [facility] Last Admin: 12/26/17 10:16 Dose: 10 mg Arformoterol Tartrate (Brovana) 15 mcg IH [id number] [facility] Last Admin: 12/26/17 07:09 Dose: 15 mcg Aspirin (Aspirin Chewable) 81 mg PO DAILY [facility] Last Admin: 12/26/17 10:15 Dose: 81 mg Atorvastatin Calcium (Lipitor) 40 mg PO HS [facility] Last Admin: 12/25/17 21:58 Dose: 40 mg Budesonide (Pulmicort Respules) 0.5 mg IH [id number] [facility] Last Admin: 12/26/17 07:09 Dose: 0.5 mg Calcitriol (Rocaltrol) 0.5 mcg PO DAILY [facility] Last Admin: 12/26/17 10:16 Dose: 0.5 mcg Gabapentin (Neurontin) 300 mg PO BID [facility]; Protocol Last Admin: 12/26/17 10:15 Dose: 300 mg Hydralazine HCl (Apresoline) 10 mg PO QID PRN PRN Reason: for SBP>160 Last Admin: 12/26/17 05:54 Dose: 10 mg Levothyroxine Sodium (Synthroid) 25 mcg PO 0600 [facility] Last Admin: 12/26/17 05:54 Dose: 25 mcg Memantine (Namenda) 10 mg PO DAILY [facility] Last Admin: 12/26/17 10:16 Dose: 10 mg Montelukast Sodium (Singulair) 10 mg PO HS [facility] Last Admin: 12/25/17 21:59 Dose: 10 mg Nicotine (Nicoderm Cq) 1 patch TD DAILY [facility] Last Admin: 12/26/17 10:16 Dose: 1 patch Pantoprazole Sodium (Protonix Ec Tab) 20 mg PO 0600 [facility] Last Admin: 12/26/17 05:54 Dose: 20 mg Tamsulosin HCl (Flomax) 0.4 mg PO DAILY [facility] Last Admin: 12/26/17 10:15 Dose: 0.4 mg - Labs Labs: 12/26/17 07:15 12/26/17 07:15 - Constitutional Appears: Non-toxic, No Acute Distress, Chronically Ill - Head Exam Head Exam: NORMAL INSPECTION - Eye Exam Eye Exam: Normal appearance - ENT Exam ENT Exam: Mucous Membranes Moist - Respiratory Exam Respiratory Exam: Clear to Ausculation Bilateral, NORMAL BREATHING PATTERN - Cardiovascular Exam Cardiovascular Exam: REGULAR RHYTHM, +S1, +S2 - GI/Abdominal Exam GI & Abdominal Exam: Soft, Normal Bowel Sounds. absent: Tenderness - Neurological Exam Neurological Exam: Alert, Awake, Oriented x3 - Psychiatric Exam Psychiatric exam: Normal Affect, Normal Mood - Skin Skin Exam: Dry, Normal Color Assessment and Plan - Assessment and Plan (Free Text) Assessment: 87 year old male with past medical history of COPD, CHF s/p AICD, HTN, CAD s/p CABG, CKD stage IV, dementia, iron deficiency anemia, hx of gastritis, HLD with severe anemia. Plan: Acute blood loss anemia due to GI bleed. Acute on chronic kidney injury Demenita HTN HLD CHF s/p AICD (EF of 55%) PLAN: - EGD 12/25/17 Shows gastric and duodenal bulb AVMs. Gastric AVM had active bleeding and was injected with epi and clipped. - f/u Pathology - s/p 2 units pRBCs 12/25/17 - Plan for colonoscopy tomorrow. Start bowel prep today. - Clear liquid diet, NPO PM. - Continue PPI - Abd/Pelvis with PO contrast: No obvious GI mass. - cont to monitor H/H with serial CBC - Transfuse if symptomatic or hgb<7 - Avoid NSAIDs, blood thinners. - Further recommendations per Dr. Murdock <Ramon Murdock V - Last Filed: 12/26/17 23:56> Objective - Vital Signs/Intake and Output Vital Signs (last 24 hours): Temp Pulse Resp BP Pulse Ox 97.8 F 91 H 18 160/69 H 92 L 12/26/17 22:00 12/26/17 22:00 12/26/17 22:00 12/26/17 22:00 12/26/17 22:00 Intake and Output: 12/26/17 12/27/17 18:59 06:59 Intake Total 540 Output Total 400 Balance 140 - Medications Medications: Current Medications Albuterol/Ipratropium (Duoneb 3 Mg/0.5 Mg (3 Ml) Ud) 3 ml IH [id number] PRN PRN Reason: Shortness of Breath Last Admin: 12/26/17 19:55 Dose: 3 ml Amlodipine Besylate (Norvasc) 10 mg PO DAILY [facility] Last Admin: 12/26/17 10:16 Dose: 10 mg Arformoterol Tartrate (Brovana) 15 mcg IH [id number] [facility] Last Admin: 12/26/17 19:55 Dose: 15 mcg Atorvastatin Calcium (Lipitor) 40 mg PO HS [facility] Last Admin: 12/26/17 21:21 Dose: 40 mg Budesonide (Pulmicort Respules) 0.5 mg IH [id number] [facility] Last Admin: 12/26/17 19:55 Dose: 0.5 mg Calcitriol (Rocaltrol) 0.5 mcg PO DAILY [facility] Last Admin: 12/26/17 10:16 Dose: 0.5 mcg Gabapentin (Neurontin) 300 mg PO BID [facility]; Protocol Last Admin: 12/26/17 19:01 Dose: 300 mg Hydralazine HCl (Apresoline) 10 mg PO QID PRN PRN Reason: for SBP>160 Last Admin: 12/26/17 05:54 Dose: 10 mg Levothyroxine Sodium (Synthroid) 25 mcg PO 0600 [facility] Last Admin: 12/26/17 05:54 Dose: 25 mcg Memantine (Namenda) 10 mg PO DAILY [facility] Last Admin: 12/26/17 10:16 Dose: 10 mg Montelukast Sodium (Singulair) 10 mg PO HS [facility] Last Admin: 12/26/17 21:21 Dose: 10 mg Nicotine (Nicoderm Cq) 1 patch TD DAILY [facility] Last Admin: 12/26/17 10:16 Dose: 1 patch Pantoprazole Sodium (Protonix Ec Tab) 20 mg PO 0600 [facility] Last Admin: 12/26/17 05:54 Dose: 20 mg Tamsulosin HCl (Flomax) 0.4 mg PO DAILY [facility] Last Admin: 12/26/17 10:15 Dose: 0.4 mg - Labs Labs: 12/26/17 21:05 12/26/17 07:15 Attending/Attestation - Attestation I have personally seen and examined this patient.: Yes I have fully participated in the care of the patient.: Yes I have reviewed all pertinent clinical information, including history, physical exam and plan: Yes Notes (Text): This is an addendum to GI progress report dictated by the GI Fellow.The patient was seen and examined earlier. Medical records, lab studies, imagings were reviewed. Last 24 hours events reviewed. Agreed with the above treatment plan as outlined in GI Fellow 's notes with the addition of the following Status post bicap of AVM of gastric and duodenal area Followup PPI Patient is now planned for colonoscopy tomorrow 12/26/17 23:54
[2017-12-26] MEDS ORDERED: Peg-Electrolyte Oral Soln 4L (Golytely) PO ONE (16:00)
[2017-12-26] MEDS ORDERED: Bisacodyl 5mg EC Tab PO ONE (18:00)
--- NOTE | 2017-12-26 18:39 | CP.PCM.PN ---
Subjective - Date & Time of Evaluation Date of Evaluation: 12/26/17 Time of Evaluation: 18:34 - Subjective Subjective: House doc was called at 1820 because patient (questionably) pulled out his sol, walked to the bathroom, and was bleeding from penile meatus. An unknown amount of blood loss occurred as blood was wiped from floor by time I got there. When examined no active bleeding seen and patient denied being in pain. Clinical partner stated sol got tangled with bed when patient went to bathroom however patient has previously pulled out IV lines during this admission. Possibly sundowning. -reinstituted soft limb restraints -order for stat H/H to check for drop in Hgb -reinsert sol Objective - Vital Signs/Intake and Output Vital Signs (last 24 hours): Temp Pulse Resp BP Pulse Ox 98.4 F 100 H 20 112/53 L 98 12/26/17 14:00 12/26/17 14:00 12/26/17 14:00 12/26/17 14:00 12/26/17 14:00 Intake and Output: 12/26/17 12/26/17 06:59 18:59 Intake Total 610 Output Total 1425 Balance -815 - Medications Medications: Current Medications Albuterol/Ipratropium (Duoneb 3 Mg/0.5 Mg (3 Ml) Ud) 3 ml IH [id number] PRN PRN Reason: Shortness of Breath Last Admin: 12/24/17 08:24 Dose: 3 ml Amlodipine Besylate (Norvasc) 10 mg PO DAILY [facility] Last Admin: 12/26/17 10:16 Dose: 10 mg Arformoterol Tartrate (Brovana) 15 mcg IH [id number] [facility] Last Admin: 12/26/17 07:09 Dose: 15 mcg Atorvastatin Calcium (Lipitor) 40 mg PO HS [facility] Last Admin: 12/25/17 21:58 Dose: 40 mg Budesonide (Pulmicort Respules) 0.5 mg IH [id number] [facility] Last Admin: 12/26/17 07:09 Dose: 0.5 mg Calcitriol (Rocaltrol) 0.5 mcg PO DAILY [facility] Last Admin: 12/26/17 10:16 Dose: 0.5 mcg Gabapentin (Neurontin) 300 mg PO BID [facility]; Protocol Last Admin: 12/26/17 10:15 Dose: 300 mg Hydralazine HCl (Apresoline) 10 mg PO QID PRN PRN Reason: for SBP>160 Last Admin: 12/26/17 05:54 Dose: 10 mg Levothyroxine Sodium (Synthroid) 25 mcg PO 0600 [facility] Last Admin: 12/26/17 05:54 Dose: 25 mcg Memantine (Namenda) 10 mg PO DAILY [facility] Last Admin: 12/26/17 10:16 Dose: 10 mg Montelukast Sodium (Singulair) 10 mg PO HS [facility] Last Admin: 12/25/17 21:59 Dose: 10 mg Nicotine (Nicoderm Cq) 1 patch TD DAILY [facility] Last Admin: 12/26/17 10:16 Dose: 1 patch Pantoprazole Sodium (Protonix Ec Tab) 20 mg PO 0600 [facility] Last Admin: 12/26/17 05:54 Dose: 20 mg Tamsulosin HCl (Flomax) 0.4 mg PO DAILY [facility] Last Admin: 12/26/17 10:15 Dose: 0.4 mg - Labs Labs: 12/26/17 07:15 12/26/17 07:15
[2017-12-26] MEDS: Albuterol-Ipratrop 3 mg / 0.5 (3 ml) UD IH PRN (19:55)
--- NOTE | 2017-12-26 20:11 | PN ---
DATE: 12/26/2017 PULMONARY PROGRESS NOTE REFERRING PHYSICIAN: Irasema Rivas MD. SUBJECTIVE: The patient is sitting up in the chair. Night was unremarkable. Still has some cough and shortness breath. No chest pian. No nausea, vomiting, or diarrhea. No leg pain or leg swelling. PHYSICAL EXAMINATION: GENERAL: In no acute distress. VITAL SIGNS: Temperature is 98, heart rate is 70, respiratory rate is 20, blood pressure 112/53, pulse ox 98% on nasal cannula. HEENT: Moist mucous membrane. Crowded airway. Mallampati score is 4. NECK: Supple. No JVD. LUNGS: Have a few crackles. Prolonged expiratory phase. HEART: S1 and S2. ABDOMEN: Soft, nontender. No organomegaly. EXTREMITIES: Trace edema. NEUROLOGIC: Sleepy, arousable. Follows simple commands. LABORATORY DATA: Shows hydralazine 10 mg four times a day, aspirin is on hold, Brovana inhaled twice a day, Dulcolax 10 mg daily, DuoNeb every 4 hours p.r.n., Flomax 0.4 mg daily, GoLYTELY is ordered, Lipitor 40 mg daily, Namenda 10 mg daily, Neurontin 300 mg twice a day, Nicoderm patch daily, Norvasc 10 mg daily, Protonix 40 mg daily, Pulmicort inhaled twice a day, calcitriol 0.5 mcg daily, Singulair 10 mg daily, and Synthroid 25 mcg daily. LABORATORY DATA: Shows hemoglobin 8.6, hematocrit 26.7, WBC 8.2, platelet count is 165. Sodium 141, potassium 4.7, chloride 109, bicarbonate is 24, BUN of 56, creatinine 2.7, glucose 106. IMPRESSION AND PLAN: Chronic obstructive lung disease, cardiomyopathy with pulmonary hypertension, cardiac diastolic dysfunction, coronary artery disease, hypertension, hyperlipidemia, active smoker, iron-deficiency anemia, renal failure, has gastric angiopathy. Aspirin placed on hold, probably should be discontinued. Consider risk-benefit ratio. Continue bronchodilator. Keep head at 45 degrees. Sleep apnea precaution. If sedated, needs close cardiopulmonary monitoring. Cardiology and GI followup. Thank you and we will follow with you. Radha Vail MD
[2017-12-27 01:48] LABS: ANCA SCREEN NEGATIVE (NEGATIVE)
--- NOTE | 2017-12-27 04:52 | PN ---
DATE: 12/26/2017 SUBJECTIVE: The patient was seen and examined on the bedside on 12/26/2017, looking comfortable. The patient pulled again his Mann catheter and was bleeding. He was having restraint but today it was released. Still having some cough and shortness of breath. No nausea, vomiting, or diarrhea. No headache. No dizziness. PHYSICAL EXAMINATION: VITAL SIGNS: Temperature 98, heart rate 70, respiratory rate 20, blood pressure 112/53, pulse oximetry 98% on room air. HEENT: Head normocephalic, atraumatic. Eyes: PERRLA. Extraocular muscles intact. Conjunctivae clear. Nose patent. Mucous membrane moist. NECK: Supple. No carotid bruit. No JVD or thyromegaly. CHEST: Bilaterally symmetrical. HEART: S1 and S2 positive. LUNGS: Clear to auscultation. ABDOMEN: Soft. Bowel sounds positive. No organomegaly. EXTREMITIES: Trace edema. NEUROLOGICAL: The patient is awake. Follows simple commands. MEDICATIONS: Hydralazine, aspirin, Brovana, Dulcolax, DuoNeb, Flomax, GoLYTELY, Lipitor, Namenda, Neurontin, Nicoderm, Norvasc, Prozac, Protonix, Pulmicort inhaled, calcitriol, Singulair, Synthroid. LABORATORY DATA: Hemoglobin 8.6, hematocrit 26.7, white blood cells 8.2, platelets 164. Sodium 141, potassium 4.7, BUN 56, creatinine 2.7, glucose 103. ASSESSMENT AND PLAN: Mr. Faraz Zuñiga, 87-year-old male with chronic obstructive lung disease, cardiomyopathy with pulmonary hypertension, cardiac diastolic dysfunction, coronary artery disease, hypertension, hypercholesterolemia, history of active smoking, renal failure, iron-deficiency anemia, has gastric angiopathy. Aspirin is on hold, probably should be discontinued considering the risk and benefit ratio. Continue bronchodilators. Sleep apnea precautions. Gastrointestinal and deep venous thrombosis prophylaxes. Seen by Cardiology, Pulmonary and GI. Today, the patient pulled his Mann catheter, was in the bathroom and was bleeding from penile meatus and unknown amount of blood loss occurred as blood was wiped from the floor by time house physician came. The patient denies pain. According to the patient, Mann got tangled with the bed and the patient went to the bathroom; however, the patient has previously pulled out IV line during this admission, possibly . Reinstituted the soft limb restraints. I told nurse to talk to Dr. Lul Langford. We will follow up. Irasema Rivas MD [facility]
[2017-12-27] MEDS: Levothyroxine 25 MCG TAB PO SCH (05:27)
[2017-12-27] MEDS: Pantoprazole 20 mg EC Tab PO SCH (05:31)
[2017-12-27 07:07] LABS: BASO # 0.07 K/mm3 (0.0-2.0); BASO % 1.2 % (0.0-3.0); EOS # 0.3 (0.0-0.7); EOS % 4.9 % (1.5-5.0); GRAN # 4.05 (1.4-6.5); GRAN % 68.9 % (50.0-68.0); HEMOGLOBIN 8.5 g/dL (14.0-18.0); LYMPH # 0.8 (1.2-3.4); LYMPH % 13.4 % (22.0-35.0); MEAN CELL VOLUME 83.5 fl (80.0-105.0); MEAN CORPUSCULAR HEMOGLOBIN 26.9 pg (25.0-35.0); MEAN CORPUSCULAR HGB CONC 32.2 g/dl (31.0-37.0); MEAN PLATELET VOLUME 9.5 fl (7.0-11.0); MONO # 0.7 (0.1-0.6); MONO % 11.6 % (1.0-6.0); RBC 3.16 10^6/uL (3.5-6.1); WHITE BLOOD COUNT 5.9 10^3/ul (4.5-11.0)
[2017-12-27 07:19] LABS: CALCIUM 9.6 mg/dL (8.4-10.5)
--- NOTE | 2017-12-27 07:27 | CP.PCM.PN ---
Subjective - Date & Time of Evaluation Date of Evaluation: 12/27/17 Time of Evaluation: 06:35 - Subjective Subjective: Confuse,awake, no distress, lying in bed Reason for consultation and follow up: Cardiac evaluation for elevated BNP, rule out congestive heart failure Seen and examined by me and Dr. Woodward Objective - Vital Signs/Intake and Output Vital Signs (last 24 hours): Temp Pulse Resp BP Pulse Ox 97.8 F 91 H 18 160/69 H 92 L 12/26/17 22:00 12/26/17 22:00 12/26/17 22:00 12/26/17 22:00 12/26/17 22:00 Intake and Output: 12/27/17 12/27/17 06:59 18:59 Intake Total 540 Output Total 400 Balance 140 - Medications Medications: Current Medications Albuterol/Ipratropium (Duoneb 3 Mg/0.5 Mg (3 Ml) Ud) 3 ml IH [id number] PRN PRN Reason: Shortness of Breath Last Admin: 12/26/17 19:55 Dose: 3 ml Amlodipine Besylate (Norvasc) 10 mg PO DAILY [facility] Last Admin: 12/26/17 10:16 Dose: 10 mg Arformoterol Tartrate (Brovana) 15 mcg IH [id number] [facility] Last Admin: 12/26/17 19:55 Dose: 15 mcg Atorvastatin Calcium (Lipitor) 40 mg PO HS [facility] Last Admin: 12/26/17 21:21 Dose: 40 mg Budesonide (Pulmicort Respules) 0.5 mg IH [id number] [facility] Last Admin: 12/26/17 19:55 Dose: 0.5 mg Calcitriol (Rocaltrol) 0.5 mcg PO DAILY [facility] Last Admin: 12/26/17 10:16 Dose: 0.5 mcg Gabapentin (Neurontin) 300 mg PO BID [facility]; Protocol Last Admin: 12/26/17 19:01 Dose: 300 mg Hydralazine HCl (Apresoline) 10 mg PO QID PRN PRN Reason: for SBP>160 Last Admin: 12/26/17 05:54 Dose: 10 mg Levothyroxine Sodium (Synthroid) 25 mcg PO 0600 [facility] Last Admin: 12/27/17 05:27 Dose: 25 mcg Memantine (Namenda) 10 mg PO DAILY [facility] Last Admin: 12/26/17 10:16 Dose: 10 mg Montelukast Sodium (Singulair) 10 mg PO HS [facility] Last Admin: 12/26/17 21:21 Dose: 10 mg Nicotine (Nicoderm Cq) 1 patch TD DAILY [facility] Last Admin: 12/26/17 10:16 Dose: 1 patch Pantoprazole Sodium (Protonix Ec Tab) 20 mg PO 0600 [facility] Last Admin: 12/27/17 05:31 Dose: 20 mg Tamsulosin HCl (Flomax) 0.4 mg PO DAILY [facility] Last Admin: 12/26/17 10:15 Dose: 0.4 mg - Labs Labs: 12/27/17 06:30 12/27/17 06:30 - Constitutional Appears: Non-toxic, No Acute Distress - Head Exam Head Exam: NORMAL INSPECTION, NORMOCEPHALIC - ENT Exam ENT Exam: Mucous Membranes Dry - Respiratory Exam Respiratory Exam: Clear to Ausculation Bilateral, NORMAL BREATHING PATTERN - Cardiovascular Exam Cardiovascular Exam: +S1, +S2 - GI/Abdominal Exam GI & Abdominal Exam: Soft, Normal Bowel Sounds - Exam Additional comments: sol catheter kelsi urine - Extremities Exam Extremities Exam: Full ROM - Neurological Exam Neurological Exam: Alert, Awake Additional comments: confuse - Skin Skin Exam: Dry, Normal Color, Warm Assessment and Plan - Assessment and Plan (Free Text) Assessment: An 87 year old male who was brought in from [facility] due to low hemoglobin.History of COPD,chronic diastolic CHF, hypertension, hyperlipidemia, dementia,anemia, coronary artery disease post CABG,cardiomyopathy, LVEF from ECHO 20%, AICD. Admitted for acute renal injury, severe anemia. Blood transfusion of 2 units PRBC given.On iron infusion.Repeat H/H stable. Confuse, GI work up. Had EGD with clipping and biopsy , active bleeding with multiple duodenal arteriovenous malformations, gastric arteriovenous malformations as Dieulafoy lesion.2 units PRBC given for low H/H. Confuse, pulled out IV and sol catheter.on soft wrist restraints. Plan: Awake,no distress,confuse (on soft wrist restraints) Pulled sol catheter yesterday,reinserted for urinary retention Heart rate and blood pressure stable H/H 8.5/26.4 after 2 units of PRBC Continue current treatment Continue current medications Fall precaution Chart reviewed Will follow up Plan and treatment discussed with Dr. Woodward
[2017-12-27] MEDS ORDERED: Propofol 10 mg/ml Inj (20 ML) ONE (08:30)
[2017-12-27] MEDS: Arformoterol 15 mcg/2 ml Inh Sol IH SCH ×2 (08:41→19:23)
[2017-12-27] MEDS: Budesonide 0.5 mg/2 ml Inhal Susp UD IH SCH ×2 (08:42→19:23)
--- NOTE | 2017-12-27 08:56 | PN ---
DATE: 12/26/2017 REASON FOR THE CONSULTATION: Followup preop evaluation and risk stratification, history of AICD, history of cardiomyopathy. SUBJECTIVE: Yesterday, the patient had endoscopy and clipping and biopsy done. Preop, the patient has low hemoglobin, given 2 units of packed RBC. Also, endoscopy shows multiple duodenal atriovenous malformation. Today, hemoglobin is 8.6. Chemistry shows of 4.5. Some renal insufficiency. RECOMMENDATION: Suggest to hold aspirin if suggested by GI people. Continue blood pressure medication. Avoid nephrotoxic medication. Monitor H and H. We will repeat the blood workup tomorrow. We will hold aspirin now in view of GI finding, endoscopic. I will repeat the blood workup in the morning. This note is an addition to the initial detailed note dictated by our nurse practitioner, Marely Padilla. Thank you, Dr. Rivas for providing us the opportunity in taking care of the patient, Faraz Zuñiga. Radha Woodward MD
--- NOTE | 2017-12-27 12:50 | CP.PCM.PN ---
Subjective - Date & Time of Evaluation Date of Evaluation: 12/27/17 Time of Evaluation: 12:47 - Subjective Subjective: Patient evaluated after nursing staff called. Patient had pulled his sol, and began to bleed. Patient was laying in blood, with gross blood present and clots. Objective - Vital Signs/Intake and Output Vital Signs (last 24 hours): Temp Pulse Resp BP Pulse Ox 98.2 F 81 20 168/70 H 94 L 12/27/17 06:00 12/27/17 06:00 12/27/17 06:00 12/27/17 11:10 12/27/17 06:00 Intake and Output: 12/27/17 12/27/17 06:59 18:59 Intake Total 540 Output Total 400 Balance 140 - Medications Medications: Current Medications Albuterol/Ipratropium (Duoneb 3 Mg/0.5 Mg (3 Ml) Ud) 3 ml IH [id number] PRN PRN Reason: Shortness of Breath Last Admin: 12/26/17 19:55 Dose: 3 ml Amlodipine Besylate (Norvasc) 10 mg PO DAILY [facility] Last Admin: 12/27/17 11:10 Dose: 10 mg Arformoterol Tartrate (Brovana) 15 mcg IH [id number] [facility] Last Admin: 12/27/17 08:41 Dose: 15 mcg Atorvastatin Calcium (Lipitor) 40 mg PO HS [facility] Last Admin: 12/26/17 21:21 Dose: 40 mg Budesonide (Pulmicort Respules) 0.5 mg IH [id number] [facility] Last Admin: 12/27/17 08:42 Dose: 0.5 mg Calcitriol (Rocaltrol) 0.5 mcg PO DAILY [facility] Last Admin: 12/27/17 11:07 Dose: 0.5 mcg Gabapentin (Neurontin) 300 mg PO BID [facility]; Protocol Last Admin: 12/27/17 11:10 Dose: 300 mg Hydralazine HCl (Apresoline) 10 mg PO QID PRN PRN Reason: for SBP>160 Last Admin: 12/26/17 05:54 Dose: 10 mg Levothyroxine Sodium (Synthroid) 25 mcg PO 0600 [facility] Last Admin: 12/27/17 05:27 Dose: 25 mcg Memantine (Namenda) 10 mg PO DAILY [facility] Last Admin: 12/27/17 11:10 Dose: 10 mg Montelukast Sodium (Singulair) 10 mg PO HS [facility] Last Admin: 12/26/17 21:21 Dose: 10 mg Nicotine (Nicoderm Cq) 1 patch TD DAILY [facility] Last Admin: 12/27/17 11:05 Dose: 1 patch Pantoprazole Sodium (Protonix Ec Tab) 20 mg PO 0600 [facility] Last Admin: 12/27/17 05:31 Dose: 20 mg Tamsulosin HCl (Flomax) 0.4 mg PO DAILY [facility] Last Admin: 12/27/17 11:10 Dose: 0.4 mg - Labs Labs: 12/27/17 06:30 12/27/17 06:30 - Constitutional Appears: In Acute Distress - Head Exam Head Exam: ATRAUMATIC, NORMAL INSPECTION, NORMOCEPHALIC - Eye Exam Eye Exam: Normal appearance - Exam Additional comments: sol in place, bleeding present with clots Assessment and Plan - Assessment and Plan (Free Text) Plan: Patients bleeding has subsided, nursing staff spoke to Dr. Langford, who recommended starting IV fluids and he will come asses patient. Repeat H and H ordered, continue to monitor.
[2017-12-27] MEDS ORDERED: Dextrose 5%/0.45% NS 1,000 ML IV SCH (13:15)
[2017-12-27 13:38] LABS: HEMOGLOBIN 8.1 g/dL (14.0-18.0)
--- NOTE | 2017-12-27 14:08 | CP.PCM.PN ---
<LincolnIsa crews - Last Filed: 12/27/17 14:08> Subjective - Date & Time of Evaluation Date of Evaluation: 12/27/17 Time of Evaluation: 07:00 - Subjective Subjective: PGY-3 Nephrology Progress Note for Dr. Andrade Patient seen and examined at bedside. Patient is resting comfortably in bed. Overnight patient pulled out his sol but continued to retained require the insertion of another sol. Patient had to be placed on wrist restraints again over night. Objective - Vital Signs/Intake and Output Vital Signs (last 24 hours): Temp Pulse Resp BP Pulse Ox 98.2 F 81 20 168/70 H 94 L 12/27/17 06:00 12/27/17 06:00 12/27/17 06:00 12/27/17 11:10 12/27/17 06:00 Intake and Output: 12/27/17 12/27/17 06:59 18:59 Intake Total 540 Output Total 400 Balance 140 - Medications Medications: Current Medications Albuterol/Ipratropium (Duoneb 3 Mg/0.5 Mg (3 Ml) Ud) 3 ml IH [id number] PRN PRN Reason: Shortness of Breath Last Admin: 12/26/17 19:55 Dose: 3 ml Amlodipine Besylate (Norvasc) 10 mg PO DAILY [facility] Last Admin: 12/27/17 11:10 Dose: 10 mg Arformoterol Tartrate (Brovana) 15 mcg IH [id number] [facility] Last Admin: 12/27/17 08:41 Dose: 15 mcg Atorvastatin Calcium (Lipitor) 40 mg PO HS [facility] Last Admin: 12/26/17 21:21 Dose: 40 mg Budesonide (Pulmicort Respules) 0.5 mg IH [id number] [facility] Last Admin: 12/27/17 08:42 Dose: 0.5 mg Calcitriol (Rocaltrol) 0.5 mcg PO DAILY [facility] Last Admin: 12/27/17 11:07 Dose: 0.5 mcg Furosemide (Lasix) 40 mg IVP DAILY [facility] Gabapentin (Neurontin) 300 mg PO BID [facility]; Protocol Last Admin: 12/27/17 11:10 Dose: 300 mg Hydralazine HCl (Apresoline) 10 mg PO QID PRN PRN Reason: for SBP>160 Last Admin: 12/26/17 05:54 Dose: 10 mg Dextrose/Sodium Chloride (Dextrose 5%/0.45% Ns 1000 Ml) 1,000 mls @ 50 mls/hr IV .Q20H [facility] Last Admin: 12/27/17 13:10 Dose: 50 mls/hr Levothyroxine Sodium (Synthroid) 25 mcg PO 0600 [facility] Last Admin: 12/27/17 05:27 Dose: 25 mcg Memantine (Namenda) 10 mg PO DAILY [facility] Last Admin: 12/27/17 11:10 Dose: 10 mg Montelukast Sodium (Singulair) 10 mg PO HS [facility] Last Admin: 12/26/17 21:21 Dose: 10 mg Nicotine (Nicoderm Cq) 1 patch TD DAILY [facility] Last Admin: 12/27/17 11:05 Dose: 1 patch Pantoprazole Sodium (Protonix Ec Tab) 20 mg PO 0600 [facility] Last Admin: 12/27/17 05:31 Dose: 20 mg Tamsulosin HCl (Flomax) 0.4 mg PO DAILY [facility] Last Admin: 12/27/17 11:10 Dose: 0.4 mg - Labs Labs: 12/27/17 13:20 12/27/17 06:30 - Additional Findings Additional findings: Patient on wrist restraints, sol in place with blood tinged urine - Constitutional Appears: No Acute Distress - Head Exam Head Exam: ATRAUMATIC, NORMAL INSPECTION, NORMOCEPHALIC - Eye Exam Eye Exam: Normal appearance, PERRL - ENT Exam ENT Exam: Mucous Membranes Moist - Respiratory Exam Respiratory Exam: Clear to Ausculation Bilateral, NORMAL BREATHING PATTERN. absent: Rales, Rhonchi, Wheezes - Cardiovascular Exam Cardiovascular Exam: REGULAR RHYTHM, +S1, +S2, regular rate, absent: Gallop, Rubs, murmur - GI/Abdominal Exam GI & Abdominal Exam: Soft, Normal Bowel Sounds. absent: Rigid, Tenderness, Ma ss, Rebound - Extremities Exam Extremities Exam: Normal Inspection. absent: Calf Tenderness, Pedal Edema - Neurological Exam Neurological Exam: Alert, CN II-XII Intact. confusion absent: Motor Sensory Deficit, Oriented x3 - Psychiatric Exam Psychiatric exam: Normal Affect, Normal Mood, absent: anxious, depression - Skin Skin Exam: Dry, Normal Color, Warm Assessment and Plan - Assessment and Plan (Free Text) Assessment: UZAIR on CKD stage IV - secondary to dehydration and bleed Acute on chronic anemia - s/p 4Units PRBC bleeding angiodysplastic lesion- injected and clipped gastritis Hematuria Hypovolemia Iron deficiency anemia Hyperkalemia- improved Essential HTN Plan: Labs and imaging reviewed. No plan for renal replacement at this time. C reatinine is improving, continue to monitor. PTH is elevated, continue calcitriol. HIV, hep B, hep C HARLAN and anca negative. Patient received 2 dose of Venofer, and 4 units prbc total. EGD showed bleeding angiodysplastic lesion which was injected and clipped. Patient was start on amlodipine 10mg but BP continues to be elevated will start lasix. Will continue to monitor kidney function and electrolytes. Continue to monitor I&O. Patient is on gentle hydration for hypovolemia. Case discussed and reviewed with Dr. Andrade. <Spencer Andrade S - Last Filed: 12/27/17 16:27> Objective - Vital Signs/Intake and Output Vital Signs (last 24 hours): Temp Pulse Resp BP Pulse Ox 97.5 F L 83 18 142/62 94 L 12/27/17 14:00 12/27/17 14:00 12/27/17 14:00 12/27/17 14:00 12/27/17 14:00 Intake and Output: 12/27/17 12/27/17 06:59 18:59 Intake Total 540 Output Total 400 Balance 140 - Medications Medications: Current Medications Albuterol/Ipratropium (Duoneb 3 Mg/0.5 Mg (3 Ml) Ud) 3 ml IH [id number] PRN PRN Reason: Shortness of Breath Last Admin: 12/26/17 19:55 Dose: 3 ml Amlodipine Besylate (Norvasc) 10 mg PO DAILY [facility] Last Admin: 12/27/17 11:10 Dose: 10 mg Arformoterol Tartrate (Brovana) 15 mcg IH [id number] [facility] Last Admin: 12/27/17 08:41 Dose: 15 mcg Atorvastatin Calcium (Lipitor) 40 mg PO HS [facility] Last Admin: 12/26/17 21:21 Dose: 40 mg Budesonide (Pulmicort Respules) 0.5 mg IH [id number] [facility] Last Admin: 12/27/17 08:42 Dose: 0.5 mg Calcitriol (Rocaltrol) 0.5 mcg PO DAILY [facility] Last Admin: 12/27/17 11:07 Dose: 0.5 mcg Furosemide (Lasix) 40 mg IVP DAILY [facility] Gabapentin (Neurontin) 300 mg PO BID [facility]; Protocol Last Admin: 12/27/17 11:10 Dose: 300 mg Hydralazine HCl (Apresoline) 10 mg PO QID PRN PRN Reason: for SBP>160 Last Admin: 12/26/17 05:54 Dose: 10 mg Dextrose/Sodium Chloride (Dextrose 5%/0.45% Ns 1000 Ml) 1,000 mls @ 50 mls/hr IV .Q20H [facility] Last Admin: 12/27/17 13:10 Dose: 50 mls/hr Levothyroxine Sodium (Synthroid) 25 mcg PO 0600 [facility] Last Admin: 12/27/17 05:27 Dose: 25 mcg Memantine (Namenda) 10 mg PO DAILY [facility] Last Admin: 12/27/17 11:10 Dose: 10 mg Montelukast Sodium (Singulair) 10 mg PO HS [facility] Last Admin: 12/26/17 21:21 Dose: 10 mg Nicotine (Nicoderm Cq) 1 patch TD DAILY [facility] Last Admin: 12/27/17 11:05 Dose: 1 patch Pantoprazole Sodium (Protonix Ec Tab) 20 mg PO 0600 [facility] Last Admin: 12/27/17 05:31 Dose: 20 mg Tamsulosin HCl (Flomax) 0.4 mg PO DAILY [facility] Last Admin: 12/27/17 11:10 Dose: 0.4 mg - Labs Labs: 12/27/17 13:20 12/27/17 06:30 Assessment and Plan - Assessment and Plan (Free Text) Plan: Pt seen and examined. I have reviewed the note of the medical and health services manager and agree with it. I have discussed the assessment and plan with the resident. I have reviewed the patient's labs and medications. Pt with UZAIR that is improving. He was given Venofer for his anemia. He was started on Amlodipine for his HTN. 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 EGD was reviewed.
[2017-12-27] MEDS ORDERED: Bisacodyl 5mg EC Tab PO ONE ×2 (20:00→20:15)
--- NOTE | 2017-12-27 20:07 | CON ---
DATE: 12/27/2017 UROLOGY CONSULT REASON FOR CONSULTATION: Hematuria. HISTORY OF PRESENT ILLNESS: Mr. Zuñiga is under the care of Dr. Rivas. He had a Mann catheter inserted and subsequently, he removed it with a balloon up apparently and has blood in the urine and Urology should scope it. He currently has been unable to urinate and he has been able to have a decrease in the blood flow and he is able to void. See the plans listed below. PAST MEDICAL AND SURGICAL HISTORY: Listed on the chart. REVIEW OF SYSTEMS: All noncontributory from Urology standpoint. MEDICATIONS: See chart. ALLERGIES: PHYSICAL EXAMINATION GENERAL: Well-nourished male. He is currently resting comfortably. ABDOMEN: Relatively soft, not grossly distended. GENITOURINARY: Normal male phallus with a discharge. DIAGNOSIS: Hematuria, status post removal of a Mann catheter with a balloon inflated. I discussed with the patient reinserting the Mann catheter. I at this point being apparently more bloody before and is clearing. So for now, we are going to observe the patient and then, we will follow him. If he needs a Mann catheter reinserted, we will plan to do that, but if not, we are going to observe him for now. Lul Langford MD
--- NOTE | 2017-12-27 22:09 | CP.PCM.PN ---
<Billy Ray - Last Filed: 12/27/17 22:06> Subjective - Date & Time of Evaluation Date of Evaluation: 12/27/17 Time of Evaluation: 22:06 - Subjective Subjective: GI Progress Note Patient seen and examined this AM. Patient is laying in bed comfortably with wrist restraints in place. Patient is noted to have blood tinged urine collection in sol bag. Patient has baseline dementia and thus ROS is limited. No reports of bloody bm. Objective - Vital Signs/Intake and Output Vital Signs (last 24 hours): Temp Pulse Resp BP Pulse Ox 97.5 F L 83 18 142/62 94 L 12/27/17 14:00 12/27/17 14:00 12/27/17 14:00 12/27/17 14:00 12/27/17 14:00 Intake and Output: 12/27/17 12/28/17 18:59 06:59 Intake Total 540 Output Total 751 Balance -211 - Medications Medications: Current Medications Albuterol/Ipratropium (Duoneb 3 Mg/0.5 Mg (3 Ml) Ud) 3 ml IH [id number] PRN PRN Reason: Shortness of Breath Last Admin: 12/26/17 19:55 Dose: 3 ml Amlodipine Besylate (Norvasc) 10 mg PO DAILY [facility] Last Admin: 12/27/17 11:10 Dose: 10 mg Arformoterol Tartrate (Brovana) 15 mcg IH [id number] [facility] Last Admin: 12/27/17 19:23 Dose: 15 mcg Atorvastatin Calcium (Lipitor) 40 mg PO HS [facility] Last Admin: 12/27/17 21:24 Dose: 40 mg Bisacodyl (Dulcolax) 10 mg PO ONCE ONE Stop: 12/28/17 06:01 Budesonide (Pulmicort Respules) 0.5 mg IH [id number] [facility] Last Admin: 12/27/17 19:23 Dose: 0.5 mg Calcitriol (Rocaltrol) 0.5 mcg PO DAILY [facility] Last Admin: 12/27/17 11:07 Dose: 0.5 mcg Furosemide (Lasix) 40 mg IVP DAILY [facility] Gabapentin (Neurontin) 300 mg PO BID [facility]; Protocol Last Admin: 12/27/17 17:52 Dose: 300 mg Hydralazine HCl (Apresoline) 10 mg PO QID PRN PRN Reason: for SBP>160 Last Admin: 12/26/17 05:54 Dose: 10 mg Levothyroxine Sodium (Synthroid) 25 mcg PO 0600 [facility] Last Admin: 12/27/17 05:27 Dose: 25 mcg Memantine (Namenda) 10 mg PO DAILY [facility] Last Admin: 12/27/17 11:10 Dose: 10 mg Montelukast Sodium (Singulair) 10 mg PO HS [facility] Last Admin: 12/27/17 21:24 Dose: 10 mg Nicotine (Nicoderm Cq) 1 patch TD DAILY [facility] Last Admin: 12/27/17 11:05 Dose: 1 patch Pantoprazole Sodium (Protonix Ec Tab) 20 mg PO 0600 [facility] Last Admin: 12/27/17 05:31 Dose: 20 mg Polyethylene Glycol/Electrolytes (Golytely) 2,000 ml PO ONCE ONE Stop: 12/28/17 06:01 Tamsulosin HCl (Flomax) 0.4 mg PO DAILY [facility] Last Admin: 12/27/17 11:10 Dose: 0.4 mg - Labs Labs: 12/27/17 13:20 12/27/17 06:30 - Constitutional Appears: No Acute Distress - Head Exam Head Exam: ATRAUMATIC, NORMOCEPHALIC - Eye Exam Eye Exam: EOMI, PERRL - ENT Exam ENT Exam: Mucous Membranes Moist - Respiratory Exam Respiratory Exam: Clear to Ausculation Bilateral, NORMAL BREATHING PATTERN - Cardiovascular Exam Cardiovascular Exam: REGULAR RHYTHM, +S1, +S2 - GI/Abdominal Exam GI & Abdominal Exam: Soft, Normal Bowel Sounds - Extremities Exam Extremities Exam: absent: Pedal Edema - Neurological Exam Neurological Exam: Alert, Awake Neuro motor strength exam: Left Upper Extremity: 5, Right Upper Extremity: 5, Left Lower Extremity: 5, Right Lower Extremity: 5 - Psychiatric Exam Additional comments: baseline dementia - Skin Skin Exam: Dry, Warm Assessment and Plan - Assessment and Plan (Free Text) Assessment: 87 year old male with past medical history of COPD, CHF s/p AICD, HTN, CAD s/p CABG, CKD stage IV, dementia, iron deficiency anemia, hx of gastritis, HLD with severe anemia. Plan: Acute blood loss anemia due to GI bleed. Acute on chronic kidney injury Demenita HTN HLD CHF s/p AICD (EF of 55%) - EGD 12/25/17 Shows gastric and duodenal bulb AVMs. Gastric AVM had active bleeding and was injected with epi and clipped, f/u Pathology - s/p 2 units pRBCs 12/25/17 -- Paitnet failed to finish bowel prep, will attempt to complete bowel prep today for possible colonoscopy tomorrow - Clear liquid diet, NPO PM. - Continue PPI - Abd/Pelvis with PO contrast: No obvious GI mass. - Monitor H/H with serial CBC, transfuse if symptomatic or hgb<7 - Avoid NSAIDs, blood thinners. - Further recommendations per Dr. Murdock <Ramon Murdock V - Last Filed: 12/29/17 19:25> Objective - Vital Signs/Intake and Output Vital Signs (last 24 hours): Temp Pulse Resp BP Pulse Ox 97.5 F L 83 18 142/62 94 L 12/27/17 14:00 12/27/17 14:00 12/27/17 14:00 12/27/17 14:00 12/27/17 14:00 Intake and Output: 12/27/17 12/28/17 18:59 06:59 Intake Total 540 Output Total 751 Balance -211 - Medications Medications: Current Medications Albuterol/Ipratropium (Duoneb 3 Mg/0.5 Mg (3 Ml) Ud) 3 ml IH [id number] PRN PRN Reason: Shortness of Breath Last Admin: 12/26/17 19:55 Dose: 3 ml Amlodipine Besylate (Norvasc) 10 mg PO DAILY [facility] Last Admin: 12/27/17 11:10 Dose: 10 mg Arformoterol Tartrate (Brovana) 15 mcg IH [id number] [facility] Last Admin: 12/27/17 19:23 Dose: 15 mcg Atorvastatin Calcium (Lipitor) 40 mg PO HS [facility] Last Admin: 12/27/17 21:24 Dose: 40 mg Bisacodyl (Dulcolax) 10 mg PO ONCE ONE Stop: 12/28/17 06:01 Budesonide (Pulmicort Respules) 0.5 mg IH [id number] [facility] Last Admin: 12/27/17 19:23 Dose: 0.5 mg Calcitriol (Rocaltrol) 0.5 mcg PO DAILY [facility] Last Admin: 12/27/17 11:07 Dose: 0.5 mcg Furosemide (Lasix) 40 mg IVP DAILY [facility] Gabapentin (Neurontin) 300 mg PO BID [facility]; Protocol Last Admin: 12/27/17 17:52 Dose: 300 mg Hydralazine HCl (Apresoline) 10 mg PO QID PRN PRN Reason: for SBP>160 Last Admin: 12/26/17 05:54 Dose: 10 mg Levothyroxine Sodium (Synthroid) 25 mcg PO 0600 [facility] Last Admin: 12/27/17 05:27 Dose: 25 mcg Memantine (Namenda) 10 mg PO DAILY [facility] Last Admin: 12/27/17 11:10 Dose: 10 mg Montelukast Sodium (Singulair) 10 mg PO HS [facility] Last Admin: 12/27/17 21:24 Dose: 10 mg Nicotine (Nicoderm Cq) 1 patch TD DAILY [facility] Last Admin: 12/27/17 11:05 Dose: 1 patch Pantoprazole Sodium (Protonix Ec Tab) 20 mg PO 0600 [facility] Last Admin: 12/27/17 05:31 Dose: 20 mg Polyethylene Glycol/Electrolytes (Golytely) 2,000 ml PO ONCE ONE Stop: 12/28/17 06:01 Tamsulosin HCl (Flomax) 0.4 mg PO DAILY [facility] Last Admin: 12/27/17 11:10 Dose: 0.4 mg - Labs Labs: 12/27/17 13:20 12/27/17 06:30 Attending/Attestation - Attestation I have personally seen and examined this patient.: Yes I have fully participated in the care of the patient.: Yes I have reviewed all pertinent clinical information, including history, physical exam and plan: Yes Notes (Text): This is an addendum to GI followup report dictated by the Size Marker. The patient was seen and evaluated earlier. Medical records, lab studies, imagings were reviewed. Last 24 hours events reviewed. Agreed with the above treatment plan as outlined in Size Marker 's notes with the addition of the following This patient did not take a bowel preparation for colonoscopy He was confused last night Scheduled for cystoscopy Admitted with a severe anemia hemoglobin of 6.5 Status post BiCAP of gastric and duodenal AVM Discussed with Dr Libra Morales for colon Tomorrow 22:40 12/29/17 19:24
--- NOTE | 2017-12-28 04:42 | PN ---
DATE: 12/27/2017 SUBJECTIVE: Patient is an 87-year-old male. Patient was seen and examined at the bedside on 12/27/2017. Sleepy, arousable, moving all four extremities. Last night, he again pulled his Mann catheter and was reinserted. Today, he is bleeding from his penis. Placed on restraint. Radiologist is on the case. GI is on the case also. No fever, no chills. PHYSICAL EXAMINATION: VITAL SIGNS: Temperature 98.2, pulse 81, respiratory rate 20, blood pressure 116/70, pulse oximetry 94. HEENT: Head: Normocephalic, atraumatic. Eyes: PERRLA. Extraocular muscles intact. Conjunctivae clear. Nose patent. Mucous membrane moist. NECK: Supple. No carotid bruit, JVD, or thyromegaly. CHEST: Bilaterally symmetrical. HEART: S1 and S2 positive. LUNGS: Clear to auscultation. ABDOMEN: Soft. Bowel sounds present. No organomegaly. EXTREMITIES: No edema. No cyanosis. NEUROLOGIC: Patient is sleepy, arousable. Moving all four extremities. No focal deficit. MEDICATIONS: DuoNeb, Norvasc, Brovana, Lipitor, Pulmicort, Rocaltrol, Lasix, hydralazine, levothyroxine, Namenda, Singulair, nicotine, pantoprazole, tamsulosin. LABORATORY DATA: Hemoglobin 8.1, hematocrit 25.5. Sodium 143, potassium 4.8, BUN 50, creatinine 2.4, glucose 87. ASSESSMENT AND PLAN: Mr. Faraz Zuñiga, 87-year-old male with anemia, hyperchloremia, renal insufficiency, acute kidney injury on chronic kidney disease stage IV secondary to dehydration and bleeding; acute on chronic anemia, status post 4 units of packed red blood cells. Because of today's bleeding episode, we typed and crossed 2 units of packed red blood cells and patient is going for a colonoscopy tomorrow. Bleeding arteriovenous malformation, renal insufficiency with gastritis, hematuria, hypovolemia, iron-deficiency anemia, hyperkalemia - improved, essential hypertension. According to Nephrology, no plan of renal replacement at this time. Creatinine is improving, though slowly. Continue monitoring. elevated. Continue calcitriol. Patient received 2 units of Venofer and 4 units of packed red blood cells. Esophagogastroduodenoscopy showed bleeding angiodysplastic lesion, which was injected . He was started on amlodipine for blood pressure continuing to be elevated. Plan was to start Lasix. Continue monitoring the kidney function and electrolytes. Length of time discussion done with Dr. Murdock. Because of anemia, maybe patient will go for colonoscopy tomorrow. Patient is restless, sometime pulling his Mann catheter 3 to 2 times. Radiologist is on the case. Repeat labs. We will follow up. Irasema Rivas MD MTDD
[2017-12-28] MEDS ORDERED: Bisacodyl 5mg EC Tab PO ONE ×2 (06:00)
[2017-12-28] MEDS ORDERED: Peg-Electrolyte Oral Soln 4L (Golytely) PO ONE (06:00)
[2017-12-28] MEDS: Pantoprazole 20 mg EC Tab PO SCH (06:21)
[2017-12-28] MEDS: Levothyroxine 25 MCG TAB PO SCH (06:21)
--- NOTE | 2017-12-28 06:48 | CP.PCM.PN ---
Subjective - Date & Time of Evaluation Date of Evaluation: 12/28/17 Time of Evaluation: 06:20 - Subjective Subjective: Awake, no distress, lying in bed Reason for consultation and follow up: Cardiac evaluation for elevated BNP, rule out congestive heart failure Seen and examined by me and Dr. Woodward Objective - Vital Signs/Intake and Output Vital Signs (last 24 hours): Temp Pulse Resp BP Pulse Ox 98.7 F 99 H 18 130/59 L 91 L 12/27/17 22:31 12/27/17 22:31 12/27/17 22:31 12/27/17 22:31 12/27/17 22:31 Intake and Output: 12/27/17 12/28/17 18:59 06:59 Intake Total 540 Output Total 1251 Balance -711 - Medications Medications: Current Medications Albuterol/Ipratropium (Duoneb 3 Mg/0.5 Mg (3 Ml) Ud) 3 ml IH [id number] PRN PRN Reason: Shortness of Breath Last Admin: 12/26/17 19:55 Dose: 3 ml Amlodipine Besylate (Norvasc) 10 mg PO DAILY [facility] Last Admin: 12/27/17 11:10 Dose: 10 mg Arformoterol Tartrate (Brovana) 15 mcg IH [id number] [facility] Last Admin: 12/27/17 19:23 Dose: 15 mcg Atorvastatin Calcium (Lipitor) 40 mg PO HS [facility] Last Admin: 12/27/17 21:24 Dose: 40 mg Budesonide (Pulmicort Respules) 0.5 mg IH [id number] [facility] Last Admin: 12/27/17 19:23 Dose: 0.5 mg Calcitriol (Rocaltrol) 0.5 mcg PO DAILY [facility] Last Admin: 12/27/17 11:07 Dose: 0.5 mcg Gabapentin (Neurontin) 300 mg PO BID [facility]; Protocol Last Admin: 12/27/17 17:52 Dose: 300 mg Hydralazine HCl (Apresoline) 10 mg PO QID PRN PRN Reason: for SBP>160 Last Admin: 12/26/17 05:54 Dose: 10 mg Levothyroxine Sodium (Synthroid) 25 mcg PO 0600 [facility] Last Admin: 12/28/17 06:21 Dose: 25 mcg Memantine (Namenda) 10 mg PO DAILY [facility] Last Admin: 12/27/17 11:10 Dose: 10 mg Montelukast Sodium (Singulair) 10 mg PO HS [facility] Last Admin: 12/27/17 21:24 Dose: 10 mg Nicotine (Nicoderm Cq) 1 patch TD DAILY [facility] Last Admin: 12/27/17 11:05 Dose: 1 patch Pantoprazole Sodium (Protonix Ec Tab) 20 mg PO 0600 [facility] Last Admin: 12/28/17 06:21 Dose: 20 mg Tamsulosin HCl (Flomax) 0.4 mg PO DAILY [facility] Last Admin: 12/27/17 11:10 Dose: 0.4 mg - Labs Labs: 12/27/17 13:20 12/27/17 06:30 - Constitutional Appears: Non-toxic, No Acute Distress - Head Exam Head Exam: NORMAL INSPECTION, NORMOCEPHALIC - ENT Exam ENT Exam: Mucous Membranes Dry - Respiratory Exam Respiratory Exam: Decreased Breath Sounds, NORMAL BREATHING PATTERN - Cardiovascular Exam Cardiovascular Exam: +S1, +S2 - GI/Abdominal Exam GI & Abdominal Exam: Soft, Normal Bowel Sounds - Exam Additional comments: sol catheter - Neurological Exam Neurological Exam: Awake - Psychiatric Exam Additional comments: confuse - Skin Skin Exam: Normal Color, Warm Assessment and Plan - Assessment and Plan (Free Text) Assessment: An 87 year old male who was brought in from [facility] due to low hemoglobin.History of COPD,chronic diastolic CHF, hypertension, hyperlipidemia, dementia,anemia, coronary artery disease post CABG,cardiomyopathy, LVEF from ECHO 20%, AICD. Admitted for acute renal injury, severe anemia. Blood transfusion of 2 units PRBC given.On iron infusion.Repeat H/H stable. Confuse, GI work up. Had EGD with clipping and biopsy , active bleeding with multiple duodenal arteriovenous malformations, gastric arteriovenous malformations as Dieulafoy lesion.2 units PRBC given for low H/H. Confuse, pulled out IV and sol catheter.on soft wrist restraints.for possible colonoscopy today. Plan: For possible colonoscopy today Awake,no distress,confuse (on soft wrist restraints) Heart rate and blood pressure stable Cardiac status stable Cleared from cardiac standpoint to go for colonoscopy Continue current treatment Continue current medications Fall precaution Chart reviewed Will follow up Plan and treatment discussed with Dr. Woodward
[2017-12-28 07:03] LABS: HEMOGLOBIN 8.2 g/dL (14.0-18.0); MEAN CELL VOLUME 84.9 fl (80.0-105.0); MEAN CORPUSCULAR HGB CONC 31.8 g/dl (31.0-37.0); MEAN PLATELET VOLUME 10.4 fl (7.0-11.0); RBC 3.04 10^6/uL (3.5-6.1); RED CELL DISTRIBUTION WIDTH 18.7 % (11.5-14.5); WHITE BLOOD COUNT 6.5 10^3/ul (4.5-11.0)
[2017-12-28 07:13] LABS: CALCIUM 9.5 mg/dL (8.4-10.5)
[2017-12-28] MEDS: Budesonide 0.5 mg/2 ml Inhal Susp UD IH SCH ×2 (07:14→20:38)
[2017-12-28] MEDS: Arformoterol 15 mcg/2 ml Inh Sol IH SCH ×2 (07:14→20:38)
--- NOTE | 2017-12-28 07:33 | CP.PCM.PN ---
<Isa Stark - Last Filed: 12/28/17 09:08> Subjective - Date & Time of Evaluation Date of Evaluation: 12/28/17 Time of Evaluation: 07:31 - Subjective Subjective: PGY-3 Nephrology Progress Note for Dr. Andrade Patient seen and examined at bedside. Patient is resting comfortably in bed, on wrist restraints. Patient is confused. He denies any pain, chest pain, sob, abd pain. Nurse reports that patient was prepped for colonoscopy today. Yesterday patient pulled sol out with balloon inflated. Objective - Vital Signs/Intake and Output Vital Signs (last 24 hours): Temp Pulse Resp BP Pulse Ox 98.7 F 99 H 18 130/59 L 91 L 12/27/17 22:31 12/27/17 22:31 12/27/17 22:31 12/27/17 22:31 12/27/17 22:31 Intake and Output: 12/28/17 12/28/17 06:59 18:59 Intake Total 540 Output Total 1251 Balance -711 - Medications Medications: Current Medications Albuterol/Ipratropium (Duoneb 3 Mg/0.5 Mg (3 Ml) Ud) 3 ml IH [id number] PRN PRN Reason: Shortness of Breath Last Admin: 12/26/17 19:55 Dose: 3 ml Amlodipine Besylate (Norvasc) 10 mg PO DAILY [facility] Last Admin: 12/27/17 11:10 Dose: 10 mg Arformoterol Tartrate (Brovana) 15 mcg IH [id number] [facility] Last Admin: 12/28/17 07:14 Dose: 15 mcg Atorvastatin Calcium (Lipitor) 40 mg PO HS [facility] Last Admin: 12/27/17 21:24 Dose: 40 mg Budesonide (Pulmicort Respules) 0.5 mg IH [id number] [facility] Last Admin: 12/28/17 07:14 Dose: 0.5 mg Calcitriol (Rocaltrol) 0.5 mcg PO DAILY [facility] Last Admin: 12/27/17 11:07 Dose: 0.5 mcg Gabapentin (Neurontin) 300 mg PO BID [facility]; Protocol Last Admin: 12/27/17 17:52 Dose: 300 mg Hydralazine HCl (Apresoline) 10 mg PO QID PRN PRN Reason: for SBP>160 Last Admin: 12/26/17 05:54 Dose: 10 mg Levothyroxine Sodium (Synthroid) 25 mcg PO 0600 [facility] Last Admin: 12/28/17 06:21 Dose: 25 mcg Memantine (Namenda) 10 mg PO DAILY [facility] Last Admin: 12/27/17 11:10 Dose: 10 mg Montelukast Sodium (Singulair) 10 mg PO HS [facility] Last Admin: 12/27/17 21:24 Dose: 10 mg Nicotine (Nicoderm Cq) 1 patch TD DAILY [facility] Last Admin: 12/27/17 11:05 Dose: 1 patch Pantoprazole Sodium (Protonix Ec Tab) 20 mg PO 0600 [facility] Last Admin: 12/28/17 06:21 Dose: 20 mg Tamsulosin HCl (Flomax) 0.4 mg PO DAILY [facility] Last Admin: 12/27/17 11:10 Dose: 0.4 mg - Labs Labs: 12/28/17 06:40 12/28/17 06:40 - Additional Findings Additional findings: Patient on wrist restraints, sol in place with blood tinged urine - Constitutional Appears: No Acute Distress - Head Exam Head Exam: ATRAUMATIC, NORMAL INSPECTION, NORMOCEPHALIC - Eye Exam Eye Exam: Normal appearance, PERRL - ENT Exam ENT Exam: Mucous Membranes Moist - Respiratory Exam Respiratory Exam: Clear to Ausculation Bilateral, NORMAL BREATHING PATTERN. absent: Rales, Rhonchi, Wheezes - Cardiovascular Exam Cardiovascular Exam: REGULAR RHYTHM, +S1, +S2, regular rate, absent: Gallop, Rubs, murmur - GI/Abdominal Exam GI & Abdominal Exam: Soft, Normal Bowel Sounds. absent: Rigid, Tenderness, Mass, Rebound - Extremities Exam Extremities Exam: Normal Inspection. absent: Calf Tenderness, Pedal Edema - Neurological Exam Neurological Exam: Alert, CN II-XII Intact. confusion absent: Motor Sensory Deficit, Oriented x3 - Psychiatric Exam Psychiatric exam: Normal Affect, Normal Mood, absent: anxious, depression - Skin Skin Exam: Dry, Normal Color, Warm Assessment and Plan - Assessment and Plan (Free Text) Assessment: UZAIR on CKD stage IV - secondary to dehydration and bleed Acute on chronic anemia - s/p 4Units PRBC bleeding angiodysplastic lesion- injected and clipped gastritis Hematuria secondary hyperparathyroidism Hypovolemia Iron deficiency anemia Hyperkalemia- improved Essential HTN Plan: Labs and imaging reviewed. No plan for renal replacement at this time. C reatinine continues to improving, continue to monitor. PTH is elevated, continue calcitriol for secondary hyperparathyriodism. HIV, hep B, hep C HARLAN and anca negative. Patient received 2 dose of Venofer, and 4 units prbc total. EGD showed bleeding angiodysplastic lesion which was injected and clipped. Patient scheduled for colonscoy today. Patient continue amlodipine 10mg. Will continue to monitor kidney function and electrolytes. Continue to monitor I&O. Patient is on gentle hydration for hypovolemia. Case discussed and reviewed with Dr. Andrade. <Spencer Andrade S - Last Filed: 01/01/18 19:49> Objective - Vital Signs/Intake and Output Vital Signs (last 24 hours): Temp Pulse Resp BP Pulse Ox 97.7 F 72 18 127/60 100 01/01/18 18:31 01/01/18 18:31 01/01/18 18:31 01/01/18 18:31 01/01/18 06:00 Intake and Output: 01/01/18 01/02/18 18:59 06:59 Intake Total 50 Output Total 25 Balance 25 - Medications Medications: Current Medications Acetaminophen (Tylenol 325mg Tab) 650 mg PO Q6H PRN PRN Reason: Fever >100.4 F Last Admin: 12/31/17 01:25 Dose: 650 mg Albuterol/Ipratropium (Duoneb 3 Mg/0.5 Mg (3 Ml) Ud) 3 ml IH [id number] PRN PRN Reason: Shortness of Breath Last Admin: 12/26/17 19:55 Dose: 3 ml Albuterol/Ipratropium (Duoneb 3 Mg/0.5 Mg (3 Ml) Ud) 3 ml IH [id number] [facility] Last Admin: 01/01/18 07:25 Dose: 3 ml Arformoterol Tartrate (Brovana) 15 mcg IH [id number] [facility] Last Admin: 01/01/18 07:25 Dose: 15 mcg Aspirin (Ecotrin) 81 mg PO DAILY [facility] Last Admin: 01/01/18 12:06 Dose: 81 mg Atorvastatin Calcium (Lipitor) 40 mg PO HS [facility] Last Admin: 12/31/17 21:44 Dose: 40 mg Budesonide (Pulmicort Respules) 0.5 mg IH [id number] [facility] Last Admin: 01/01/18 07:25 Dose: 0.5 mg Calcitriol (Rocaltrol) 0.5 mcg PO DAILY [facility] Last Admin: 01/01/18 10:20 Dose: 0.5 mcg Gabapentin (Neurontin) 300 mg PO BID [facility]; Protocol Last Admin: 01/01/18 18:38 Dose: 300 mg Hydralazine HCl (Apresoline) 10 mg PO QID PRN PRN Reason: for SBP>160 Last Admin: 12/29/17 04:48 Dose: 10 mg Cefepime HCl (Maxipime 1gm) 1 gm in 100 mls @ 25 mls/hr IVPB Q24H [facility]; Protocol Stop: 01/06/18 14:31 Last Admin: 01/01/18 15:28 Dose: 25 mls/hr Daptomycin 500 mg/ Sodium (Chloride) 100 mls @ 200 mls/hr IV Q48H [facility] Stop: 01/06/18 10:16 Last Admin: 01/01/18 11:58 Dose: 200 mls/hr Levothyroxine Sodium (Synthroid) 25 mcg PO 0600 [facility] Last Admin: 01/01/18 06:58 Dose: 25 mcg Memantine (Namenda) 10 mg PO DAILY [facility] Last Admin: 01/01/18 10:20 Dose: 10 mg Metoprolol Tartrate (Lopressor) 12.5 mg PO BID [facility] Last Admin: 01/01/18 17:39 Dose: 12.5 mg Montelukast Sodium (Singulair) 10 mg PO HS [facility] Last Admin: 12/31/17 21:44 Dose: 10 mg Nicotine (Nicoderm Cq) 1 patch TD DAILY [facility] Last Admin: 01/01/18 10:20 Dose: 1 patch Nitroglycerin (Nitro-Bid 2% Oint) 0.5 ea TOP Q6H [facility] Last Admin: 01/01/18 17:39 Dose: 0.5 ea Pantoprazole Sodium (Protonix Ec Tab) 20 mg PO 0600 [facility] Last Admin: 01/01/18 06:58 Dose: 20 mg Tamsulosin HCl (Flomax) 0.4 mg PO DAILY [facility] Last Admin: 01/01/18 10:20 Dose: 0.4 mg - Labs Labs: 01/01/18 07:30 10/16/18 07:30 PT 14.2 SECONDS (9.4-12.5) H 12/29/17 10:05 INR 1.23 12/29/17 10:05 APTT 29.6 Seconds (25.1-36.5) 12/29/17 10:05 Assessment and Plan - Assessment and Plan (Free Text) Assessment: Pt seen and examined. This is a late entry. I have reviewed the note of the biomedical engineering technologist and agree with it. I have discussed the assessment and plan with the resident. I have reviewed the patient's labs and medications.Pt with UZAIR that has improved. Pt was evaluated by GI. Serology has been reviewed. Pt's BP is controlled. Follow Cr.
--- NOTE | 2017-12-28 09:19 | PN ---
DATE: 12/27/2017 This note is an addition to the note dictated by the nurse practitioner. SUBJECTIVE: Patient pulled the Mann catheter, it is bleeding, yesterday I gave two units of blood. Repeat hemoglobin 8.5. Since the patient has bleeding, I will repeat another stat hemoglobin. Put some IV fluid at 50 mL an hour. 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 RECOMMENDATION: Continue current management. Monitor H and H. Continue IV fluid. Follow up H and H. Patient is demented and was in positive , now needs again a positive . If the patient is stable from GI, probably okay to be discharged to the detention. If patient remain stable, we will sign off and glad to follow up p.r.n. Thank you, Dr. Rivas, for providing us the opportunity in taking care of the patient, Faraz Zuñiga. Radha Woodward MD
--- NOTE | 2017-12-28 09:21 | PN ---
DATE: 12/27/2017 REFERRING PHYSICIAN: Irasema Rivas MD SUBJECTIVE: He is lying in the bed. His family is at bedside. Night was unremarkable. Attempts were made to do colonoscopy, apparently colon was not clean, it is rescheduled. No nausea, no vomiting, no diarrhea. No leg pain or leg swelling. PHYSICAL EXAMINATION: GENERAL: In no acute distress. VITAL SIGNS: Temperature is 98, heart rate is 83, respiratory rate is 18, blood pressure 142/62, pulse ox 94% on nasal cannula. HEENT: Moist mucous membrane. Crowded airway. NECK: Supple. No JVD. LUNGS: Have a prolonged expiratory phase with few wheezing. HEART: S1 and S2. ABDOMEN: Soft, nontender. No organomegaly. EXTREMITIES: There is no edema. NEUROLOGIC: Awake and alert. Follows simple command. MEDICATIONS: He is on hydralazine 10 mg 4 times a day p.r.n., Brovana inhaled twice a day, IV fluid D5 of normal saline 50 mL per hour, DuoNeb every 4 hour p.r.n., Flomax 0.4 mg daily, Lasix 40 mg daily, Lipitor 40 mg daily, Namenda 10 mg daily, Neurontin 300 mg twice a day, Nicoderm patch daily, Norvasc mg daily, Pulmicort inhaled twice a day, Calcitrol is 0.5 mcg p.o. daily, Singulair 10 mg at bedtime, Synthroid 25 mcg daily. LABORATORY DATA: Shows hemoglobin 8.5, hematocrit 26.4, WBC 5.9, platelet count is 163. Sodium is 42, potassium 4.8, chloride 110, bicarbonate 26, BUN 50, creatinine 2.4, glucose is 87, calcium is 9.6. IMPRESSION AND PLAN: Chronic obstructive lung disease, cardiomyopathy with pulmonary hypertension, cardiac diastolic dysfunction, coronary artery disease, hypertension, hyperlipidemia, active smoker, iron-deficiency anemia, renal failure, gastric angiopathy. Spoke to family at bedside. All the questions answered. Awaiting for colonoscopy. Pulmonary point of view doing well. Keep head at 45 degree. Bronchodilator. his BiPAP use. Thank you and we will follow with you. Radha Vail MD [facility] # [id number]
[2017-12-28] MEDS ORDERED: Propofol 10 mg/ml Inj (20 ML) ONE (15:04)
[2017-12-28] MEDS ORDERED: Sodium Chloride 0.9% 1,000 ML IV SCH (15:30)
--- NOTE | 2017-12-28 23:03 | PN ---
DATE: 12/28/2017 PULMONARY PROGRESS NOTE REFERRING PHYSICIAN: Irasema Rivas MD. SUBJECTIVE: He was seen and examined in a recovery room, status post colonoscopy; hungry, wants to eat. Cough and shortness of breath are better. No nausea. No abdominal pain. No leg pain. No leg swelling. PHYSICAL EXAMINATION: GENERAL: In no acute distress. VITAL SIGNS: Temperature is 98, heart rate is 89, respiratory rate is 20, blood pressure 122/76, pulse ox 98% on 3 L nasal cannula. HEENT: Moist mucous membrane. Crowded airway. NECK: Supple. No JVD. LUNGS: Have a prolonged expiratory phase. HEART: S1 and S2. ABDOMEN: Soft, nontender, nondistended. EXTREMITIES: No edema. NEUROLOGIC: Awake and alert. Follows simple command. MEDICATIONS: He is on hydralazine 10 mg 4 times a day p.r.n., Brovana inhaled twice a day, DuoNeb every 4 hour, Flomax 0.4 mg daily, Lipitor 40 mg at bedtime, Namenda 10 mg daily, gabapentin 300 mg twice a day, Nicoderm patch daily, Norvasc 10 mg daily, Protonix 20 mg daily, Pulmicort inhaled twice a day, calcitriol 0.5 mcg daily, Singulair 10 mg at bedtime, and Synthroid 25 mcg daily. LABORATORY DATA: Shows hemoglobin 8.2, hematocrit 25.8, WBC 6.5, platelet is 199. Sodium 144, potassium 4.5, chloride 113, bicarbonate 27, BUN 39, creatinine 2.3, glucose 87, calcium is 9.5. Has an endoscopy done today, which shows a few nonbleeding colonic angioectasias treated with bipolar cautery. Also, has internal hemorrhoid. IMPRESSION AND PLAN: Chronic obstructive lung disease, cardiomyopathy with pulmonary hypertension, cardiac diastolic dysfunction, coronary artery disease, hypertension, hyperlipidemia, active smoker, iron-deficiency anemia, renal failure, gastric angiopathy. Pulmonary point of view, he is doing okay. Continue bronchodilator. May start aspirin, if it is okay with GI. Follow up labs in the morning. Keep head elevated at 45 degrees. Sleep apnea precautions. Thank you and we will follow with you. Radha Vail MD
--- NOTE | 2017-12-29 03:39 | PN ---
DATE: 12/28/2017 SUBJECTIVE: Patient is an 87-year-old male. Patient is seen and examined at the bedside on 12/28/2017, looking comfortable, has altered mental status, has soft restraints. Denies nausea, vomiting, or diarrhea. Patient was prepped for colonoscopy and went for procedure. Yesterday, he pulled his Mann catheter and was bleeding. He pulled the catheter with the balloon inflated. PHYSICAL EXAMINATION: VITAL SIGNS: Temperature 98.7, pulse 99, respiratory rate 18, blood pressure 130/59, pulse oximetry 91. HEENT: Head: Normocephalic, atraumatic. Eyes: PERRLA. Extraocular muscles intact. Conjunctivae clear. Nose patent. Mucous membrane moist. NECK: Supple. No carotid bruit. No JVD or thyromegaly. CHEST: Bilaterally symmetrical. HEART: S1 and S2 positive. LUNGS: Clear to auscultation. ABDOMEN: Soft. Bowel sounds present. No organomegaly. EXTREMITIES: No edema. No cyanosis. NEUROLOGIC: Patient is awake, alert. Moving all four extremities. No focal deficit. MEDICATIONS: DuoNeb, Norvasc, Brovana, Lipitor, Pulmicort, Neurontin, hydralazine, Synthroid, Namenda, Singulair, Nicoderm, Protonix, Flomax. LABORATORY DATA: White blood cell 6.5, hemoglobin 8.2, hematocrit 25.8, platelets 199. Sodium 145, potassium 4.5, BUN 39, creatinine 2.3, glucose 87. ASSESSMENT AND PLAN: Mr. Faraz Zuñiga is an 87-year-old male with anemia, status post blood transfusion, hyperchloremia, renal insufficiency, acute kidney injury on chronic kidney disease stage IV secondary to dehydration and bleeding; acute on chronic anemia, status post 4 units packed red blood cells transfusion, bleeding angiodysplasia lesion injected and clipped by GI, gastritis, hematuria, secondary hyperparathyroidism, hypovolemia, iron deficiency, hyperkalemia improved, essentially hypertension. No plan of renal replacement at this time as per Nephrology. Creatinine continues to be improving. PTH is elevated. Received 2 units of Venofer and 4 units of packed red blood cells. Esophagogastroduodenoscopy showed bleeding angiodysplastic lesion, which was injected and clipped. Continue amlodipine. Continue monitoring the patient. Today, patient went for colonoscopy, shows cecal angiodysplasia, hemorrhoids. Urologist is on the case also. Continue present treatment. Gastrointestinal and deep venous thrombosis prophylaxes. Repeat labs. We will follow up. Irasema Rivas MD [id number]
[2017-12-29] MEDS: Pantoprazole 20 mg EC Tab PO SCH (05:39)
[2017-12-29] MEDS: Levothyroxine 25 MCG TAB PO SCH (05:40)
[2017-12-29] MEDS: Budesonide 0.5 mg/2 ml Inhal Susp UD IH SCH ×2 (08:19→19:35)
[2017-12-29] MEDS: Arformoterol 15 mcg/2 ml Inh Sol IH SCH ×2 (08:19→19:35)
--- NOTE | 2017-12-29 09:56 | CP.PCM.PN ---
Subjective - Date & Time of Evaluation Date of Evaluation: 12/29/17 Time of Evaluation: 09:15 - Subjective Subjective: House doctor note: I was paged regarding gross bleeding following a Mann catheter removal. Nurse stated that she spoke to Dr Langford which requested to re insert the Mann catheter. There appears to be a laceration at the external urethral meatus which is likely a consequence of him pulling his own Mann catheter out on 12/27/17. I held compression for about 15 min and the Mann catheter was reinserted. Compression was held again until the bleeding subsided. The borders of the laceration was approximated and two 4x4 was used to wrap around the penis and paper tape to keep it in place. CBC pending. Urology contacted, awaiting callback. Will cont to monitor. Objective - Vital Signs/Intake and Output Vital Signs (last 24 hours): Temp Pulse Resp BP Pulse Ox 98.5 F 87 18 165/79 H 99 12/29/17 06:00 12/29/17 06:00 12/29/17 06:00 12/29/17 06:00 12/29/17 06:00 Intake and Output: 12/29/17 12/29/17 06:59 18:59 Intake Total 600 Output Total 1100 Balance -500 - Medications Medications: Current Medications Albuterol/Ipratropium (Duoneb 3 Mg/0.5 Mg (3 Ml) Ud) 3 ml IH [id number] PRN PRN Reason: Shortness of Breath Last Admin: 12/26/17 19:55 Dose: 3 ml Amlodipine Besylate (Norvasc) 10 mg PO DAILY [facility] Last Admin: 12/28/17 09:22 Dose: 10 mg Arformoterol Tartrate (Brovana) 15 mcg IH [id number] [facility] Last Admin: 12/29/17 08:19 Dose: 15 mcg Atorvastatin Calcium (Lipitor) 40 mg PO HS [facility] Last Admin: 12/28/17 22:28 Dose: 40 mg Budesonide (Pulmicort Respules) 0.5 mg IH [id number] [facility] Last Admin: 12/29/17 08:19 Dose: 0.5 mg Calcitriol (Rocaltrol) 0.5 mcg PO DAILY [facility] Last Admin: 12/28/17 10:00 Dose: Not Given Gabapentin (Neurontin) 300 mg PO BID [facility]; Protocol Last Admin: 12/28/17 17:44 Dose: Not Given Hydralazine HCl (Apresoline) 10 mg PO QID PRN PRN Reason: for SBP>160 Last Admin: 12/29/17 04:48 Dose: 10 mg Levothyroxine Sodium (Synthroid) 25 mcg PO 0600 [facility] Last Admin: 12/29/17 05:40 Dose: 25 mcg Memantine (Namenda) 10 mg PO DAILY [facility] Last Admin: 12/28/17 10:00 Dose: Not Given Montelukast Sodium (Singulair) 10 mg PO HS [facility] Last Admin: 12/28/17 22:28 Dose: 10 mg Nicotine (Nicoderm Cq) 1 patch TD DAILY [facility] Last Admin: 12/28/17 09:24 Dose: 1 patch Pantoprazole Sodium (Protonix Ec Tab) 20 mg PO 0600 [facility] Last Admin: 12/29/17 05:39 Dose: 20 mg Tamsulosin HCl (Flomax) 0.4 mg PO DAILY [facility] Last Admin: 12/28/17 09:00 Dose: Not Given - Labs Labs: 12/28/17 06:40 12/28/17 06:40
[2017-12-29 10:16] LABS: HEMOGLOBIN 8.7 g/dL (14.0-18.0); MEAN CELL VOLUME 85.9 fl (80.0-105.0); MEAN CORPUSCULAR HEMOGLOBIN 27.2 pg (25.0-35.0); MEAN CORPUSCULAR HGB CONC 31.6 g/dl (31.0-37.0); MEAN PLATELET VOLUME 9.8 fl (7.0-11.0); RBC 3.2 10^6/uL (3.5-6.1); RED CELL DISTRIBUTION WIDTH 18.6 % (11.5-14.5); WHITE BLOOD COUNT 8.1 10^3/ul (4.5-11.0)
[2017-12-29 10:24] LABS: INR 1.23; PARTIAL THROMBOPLASTIN TIME 29.6 Seconds (25.1-36.5); PROTHROMBIN TIME 14.2 SECONDS (9.4-12.5)
[2017-12-29 10:32] LABS: ALB/GLOB RATIO 0.9 (1.1-1.8); ALBUMIN 3.2 g/dL (3.0-4.8); CALCIUM 9.8 mg/dL (8.4-10.5)
--- NOTE | 2017-12-29 15:50 | CP.PCM.PN ---
<Jean Pierre Kaiser - Last Filed: 12/29/17 15:50> Subjective - Date & Time of Evaluation Date of Evaluation: 12/29/17 Time of Evaluation: 10:30 - Subjective Subjective: PGY-4 GI Fellow Prog Note Pt lying in bed when seen this AM. Pleasantly demented, denying any complaints. Bloody urinal at bedside but RN states no further hematocheiza, no melena. Unable to obtain ROS due to clinical condition Objective - Vital Signs/Intake and Output Vital Signs (last 24 hours): Temp Pulse Resp BP Pulse Ox 98.4 F 89 20 170/76 H 94 L 12/29/17 14:00 12/29/17 14:00 12/29/17 14:00 12/29/17 14:00 12/29/17 14:00 Intake and Output: 12/29/17 12/29/17 06:59 18:59 Intake Total 600 480 Output Total 1100 Balance -500 480 - Medications Medications: Current Medications Albuterol/Ipratropium (Duoneb 3 Mg/0.5 Mg (3 Ml) Ud) 3 ml IH [id number] PRN PRN Reason: Shortness of Breath Last Admin: 12/26/17 19:55 Dose: 3 ml Amlodipine Besylate (Norvasc) 10 mg PO DAILY [facility] Last Admin: 12/29/17 10:59 Dose: 10 mg Arformoterol Tartrate (Brovana) 15 mcg IH [id number] [facility] Last Admin: 12/29/17 08:19 Dose: 15 mcg Atorvastatin Calcium (Lipitor) 40 mg PO HS [facility] Last Admin: 12/28/17 22:28 Dose: 40 mg Budesonide (Pulmicort Respules) 0.5 mg IH [id number] [facility] Last Admin: 12/29/17 08:19 Dose: 0.5 mg Calcitriol (Rocaltrol) 0.5 mcg PO DAILY [facility] Last Admin: 12/29/17 10:58 Dose: 0.5 mcg Gabapentin (Neurontin) 300 mg PO BID [facility]; Protocol Last Admin: 12/29/17 10:59 Dose: 300 mg Hydralazine HCl (Apresoline) 10 mg PO QID PRN PRN Reason: for SBP>160 Last Admin: 12/29/17 04:48 Dose: 10 mg Levothyroxine Sodium (Synthroid) 25 mcg PO 0600 [facility] Last Admin: 12/29/17 05:40 Dose: 25 mcg Memantine (Namenda) 10 mg PO DAILY [facility] Last Admin: 12/29/17 10:59 Dose: 10 mg Montelukast Sodium (Singulair) 10 mg PO HS [facility] Last Admin: 12/28/17 22:28 Dose: 10 mg Nicotine (Nicoderm Cq) 1 patch TD DAILY [facility] Last Admin: 12/29/17 10:59 Dose: 1 patch Pantoprazole Sodium (Protonix Ec Tab) 20 mg PO 0600 [facility] Last Admin: 12/29/17 05:39 Dose: 20 mg Tamsulosin HCl (Flomax) 0.4 mg PO DAILY [facility] Last Admin: 12/29/17 10:59 Dose: 0.4 mg - Labs Labs: 12/29/17 10:05 12/29/17 10:11 PT 14.2 SECONDS (9.4-12.5) H 12/29/17 10:05 INR 1.23 12/29/17 10:05 APTT 29.6 Seconds (25.1-36.5) 12/29/17 10:05 - Constitutional Appears: No Acute Distress, Chronically Ill - Head Exam Head Exam: ATRAUMATIC, NORMAL INSPECTION - Eye Exam Eye Exam: EOMI, Normal appearance - ENT Exam ENT Exam: Mucous Membranes Dry, Normal External Ear Exam. absent: Mucous Membranes Moist - Respiratory Exam Respiratory Exam: NORMAL BREATHING PATTERN. absent: Accessory Muscle Use - GI/Abdominal Exam GI & Abdominal Exam: Distended (mildly), Soft, Normal Bowel Sounds. absent: Bruit, Firm, Guarding, Rigid, Tenderness, Mass, Organomegaly, Pulsatile Mass Assessment and Plan - Assessment and Plan (Free Text) Assessment: 87 year old male with past medical history of COPD, CHF s/p AICD, HTN, CAD s/p CABG, CKD stage IV, dementia, iron deficiency anemia, hx of gastritis, HLD with severe anemia. Acute blood loss anemia due to GI bleed: AVMs on CSPY and EGD s/p bipolar cautery to prevent bleeding.Gastric AVM had active bleeding and was injected with epi and clipped. Acute on chronic kidney injury Demenita HTN HLD CHF s/p AICD (EF of 55%) Plan: - EGD 10/9/18 Shows gastric and duodenal bulb AVMs. Gastric AVM had active bleeding and was injected with epi and clipped, f/u Pathology - s/p 2 units pRBCs 12/25/17 - Advance diet to soft, heart healthy - Continue PPI - Abd/Pelvis with PO contrast: No obvious GI mass. - Monitor H/H with serial CBC, transfuse if symptomatic or hgb<7 - Avoid NSAIDs, blood thinners. Pt discussed with Dr. Murdock; see attestation for further recs/changes <Ramon Murdock V - Last Filed: 12/29/17 19:29> Objective - Vital Signs/Intake and Output Vital Signs (last 24 hours): Temp Pulse Resp BP Pulse Ox 98.4 F 89 20 170/76 H 94 L 12/29/17 14:00 12/29/17 14:00 12/29/17 14:00 12/29/17 14:00 12/29/17 14:00 Intake and Output: 12/29/17 12/30/17 18:59 06:59 Intake Total 480 Balance 480 - Medications Medications: Current Medications Albuterol/Ipratropium (Duoneb 3 Mg/0.5 Mg (3 Ml) Ud) 3 ml IH [id number] PRN PRN Reason: Shortness of Breath Last Admin: 12/26/17 19:55 Dose: 3 ml Amlodipine Besylate (Norvasc) 10 mg PO DAILY [facility] Last Admin: 12/29/17 10:59 Dose: 10 mg Arformoterol Tartrate (Brovana) 15 mcg IH [id number] [facility] Last Admin: 12/29/17 08:19 Dose: 15 mcg Atorvastatin Calcium (Lipitor) 40 mg PO HS [facility] Last Admin: 12/28/17 22:28 Dose: 40 mg Budesonide (Pulmicort Respules) 0.5 mg IH [id number] [facility] Last Admin: 12/29/17 08:19 Dose: 0.5 mg Calcitriol (Rocaltrol) 0.5 mcg PO DAILY [facility] Last Admin: 12/29/17 10:58 Dose: 0.5 mcg Gabapentin (Neurontin) 300 mg PO BID [facility]; Protocol Last Admin: 12/29/17 17:12 Dose: 300 mg Hydralazine HCl (Apresoline) 10 mg PO QID PRN PRN Reason: for SBP>160 Last Admin: 10/13/18 04:48 Dose: 10 mg Levothyroxine Sodium (Synthroid) 25 mcg PO 0600 [facility] Last Admin: 12/29/17 05:40 Dose: 25 mcg Memantine (Namenda) 10 mg PO DAILY [facility] Last Admin: 12/29/17 10:59 Dose: 10 mg Montelukast Sodium (Singulair) 10 mg PO HS [facility] Last Admin: 12/28/17 22:28 Dose: 10 mg Nicotine (Nicoderm Cq) 1 patch TD DAILY [facility] Last Admin: 12/29/17 10:59 Dose: 1 patch Pantoprazole Sodium (Protonix Ec Tab) 20 mg PO 0600 [facility] Last Admin: 12/29/17 05:39 Dose: 20 mg Tamsulosin HCl (Flomax) 0.4 mg PO DAILY [facility] Last Admin: 12/29/17 10:59 Dose: 0.4 mg - Labs Labs: 12/29/17 10:05 12/29/17 10:11 PT 14.2 SECONDS (9.4-12.5) H 12/29/17 10:05 INR 1.23 12/29/17 10:05 APTT 29.6 Seconds (25.1-36.5) 12/29/17 10:05 Attending/Attestation - Attestation I have personally seen and examined this patient.: Yes I have fully participated in the care of the patient.: Yes I have reviewed all pertinent clinical information, including history, physical exam and plan: Yes Notes (Text): This is an addendum to GI progress report dictated by the GI Fellow.The patient was seen and examined earlier. Medical records, lab studies, imagings were reviewed. Last 24 hours events reviewed. Agreed with the above treatment plan as outlined in GI Fellow 's notes with the addition of the following sp colonoscopy and bicap treatment of multiple colonic AVMs Patient had EGD and bicap treatment of gastric and duodenal AVMs Patient is on clear liquid diet Patient is edentulous Recommend cardiac puree diet with assistance Followup hb 12/29/17 19:25
--- NOTE | 2017-12-30 02:24 | PN ---
DATE: 12/28/2017 PULMONARY PROGRESS NOTE REFERRING PHYSICIAN: Irasema Rivas MD SUBJECTIVE: He is lying in the bed in upper extremity restrained, apparently he pulled his Mann catheter out started bleeding. Mann catheter was reinserted by the medical team. Mild cough. No sputum production. No nausea. No vomiting, no abdominal pain. OBJECTIVE: GENERAL: In no acute distress. VITAL SIGNS: Temperature is 98, heart rate 89, respiratory rate is 20, blood pressure 170/76, pulse of 94% room air. HEENT: Moist mucous membrane. Crowded airway. NECK: Supple. No JVD. LUNGS: Have a fair airflow with rhonchi. HEART: S1 and S2. ABDOMEN: Soft, nontender. No organomegaly. Has a Mann catheter. drainage. EXTREMITIES: There is edema. NEUROLOGIC: Awake and alert. Follows simple command. MEDICATIONS: He is on hydralazine 10 mg four times a day p.r.n., Brovana inhaled twice a day, DuoNeb every 4 hour p.r.n., Flomax 0.4 mg daily, Lipitor 40 mg daily, Namenda 10 mg daily, gabapentin 300 mg twice a day, Nicoderm patch daily, Norvasc 10 mg daily, Protonix 20 mg daily, Pulmicort inhaled twice a day, Singulair 10 mg daily, Synthroid 25 mcg daily. LABORATORY DATA: Shows hemoglobin 8.7, hematocrit 27.5, WBC 8.1, platelet count is 204. INR 1.23. PTT is 30. Sodium 144, potassium 4.5, chloride 115, bicarbonate 24, BUN 29, creatinine 2.2, glucose 105, calcium is 9.8. Total bili 0.6, ALT 26, alk phos is 28, albumin is 3.2. Microbiology, urine culture, there is no growth. IMPRESSION AND PLAN: Chronic obstructive lung disease, cardiomyopathy with pulmonary hypertension, cardiac diastolic dysfunction, coronary artery disease, hypertension, hyperlipidemia, active smoker, iron-deficiency anemia, renal failure, gastric angiopathy presently has a hematuria secondary to mechanical Mann catheter pulling. I spoke to nursing staff. Keep head at 45 degrees. Bronchodilator, aspiration precaution. Gastric prophylaxis. to lower extremity, off anticoagulation and DVT prophylaxis because of no hematuria as well as anemia with gastrointestinal bleed. Follow up labs in the morning. Thank you and we will follow with you. Radha Vail MD
[2017-12-30] MEDS: Pantoprazole 20 mg EC Tab PO SCH (06:18)
[2017-12-30] MEDS: Levothyroxine 25 MCG TAB PO SCH (06:18)
[2017-12-30 08:18] LABS: HEMOGLOBIN 8.1 g/dL (14.0-18.0); MEAN CELL VOLUME 87.5 fl (80.0-105.0); MEAN CORPUSCULAR HEMOGLOBIN 27.4 pg (25.0-35.0); MEAN CORPUSCULAR HGB CONC 31.3 g/dl (31.0-37.0); MEAN PLATELET VOLUME 10.4 fl (7.0-11.0); RBC 2.96 10^6/uL (3.5-6.1); RED CELL DISTRIBUTION WIDTH 19.5 % (11.5-14.5); WHITE BLOOD COUNT 10.2 10^3/ul (4.5-11.0)
[2017-12-30] MEDS: Arformoterol 15 mcg/2 ml Inh Sol IH SCH ×2 (08:19→20:30)
[2017-12-30] MEDS: Budesonide 0.5 mg/2 ml Inhal Susp UD IH SCH ×2 (08:19→20:30)
[2017-12-30 09:03] LABS: ALB/GLOB RATIO 0.9 (1.1-1.8); ALBUMIN 2.9 g/dL (3.0-4.8); CALCIUM 9.7 mg/dL (8.4-10.5)
--- NOTE | 2017-12-30 09:39 | PN ---
DATE: 12/29/2017 SUBJECTIVE: The patient is an 87 years old male. Patient was seen and examined at the bedside on 12/29/2017. Overnight and early in the morning event is noted. Patient is still bleeding from the penis. Had soft restrain also. Discussion done with Dr. Lul Langford. House physician saw the patient. Put dressing on the penile area, there is laceration because he pulled his Mann catheter with balloon inflated couple of times. No fever. No chills, but patient is confused. PHYSICAL EXAMINATION: VITAL SIGNS: Temperature 98.4, pulse 89 , respiratory rate 20, blood pressure 117/76, pulse oximetry 94%. HEENT: Head: Normocephalic, atraumatic. Eyes: PERRLA. Extraocular muscles intact. Conjunctivae clear. Nose patent. Mucous membrane moist. NECK: Supple. No carotid bruit. No JVD or thyromegaly. CHEST: Bilaterally symmetrical. HEART: S1 and S2 positive. LUNGS: Clear to auscultation. ABDOMEN: Soft. Bowel sounds positive. No organomegaly. EXTREMITIES: No edema. No cyanosis. NEUROLOGIC: Patient is awake, alert. Follows simple commands, but getting confused. MEDICATIONS: Amlodipine, Brovana, Lipitor, Pulmicort, Calcitrol, gabapentin, hydralazine, levothyroxine, Namenda, Singulair, Nicoderm, Protonix, Flomax. LABORATORY DATA: White blood cell 8.1, hemoglobin 8.7, hematocrit 27.5, platelets 204. Sodium 144, potassium 4.4, BUN 29, creatinine 2.2, glucose 105. ASSESSMENT AND PLAN: Mr. Faraz Zuñiga is an 87-year-old male with severe anemia, multiple blood transfusion, iron infusion, renal insufficiency, history of chronic obstructive pulmonary disease, congestive heart failure, status post automatic implantable cardioverter defibrillator, hypertension, coronary artery disease, status post coronary artery bypass graft, chronic kidney disease stage IV, dementia, history of gastritis, hypercholesterolemia, severe anemia, acute blood loss, anemia due to gastrointestinal bleeding and genitalia bleeding, arteriovenous malformations on and esophagogastroduodenoscopy ,bipolar cautery to prevent bleeding, 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 Gastrointestinal and Urology is on the case. Esophagogastroduodenoscopy showed a gastric and duodenal bulb arteriovenous malformation. Gastric arteriovenous malformation had active bleeding and was injected with epinephrine and clipped. Follow up pathology. Advance diet to soft heart-healthy diet as tolerated. Continue proton pump inhibitor. Abdomen and pelvic scan with p.o. contrast shows no obvious gastrointestinal mass. Need monitoring of H and H. No non-steroidal antiinflammatory drugs and blood thinners. Reviewed Dr. Murdock's notes. Waiting for Urology notes. Patient was seen by the urologist on 12/27/2017. Nursing staff called urologist. I will try to call patient's daughter. We will follow up. Irasema Rivas MD [email or web address]
--- NOTE | 2017-12-30 10:47 | RAD ---
Date of service: 12/30/2017 HISTORY: SOB, possible aspiration COMPARISON: 12/23/2017 FINDINGS: LUNGS: Persistent ill-defined opacity at medial right lung base. No definite left basilar opacity. Left perihilar opacity noted. Left base obscured by cardiac silhouette. PLEURA: Probable small left pleural effusion. No right pleural effusion. No pneumothorax. CARDIOVASCULAR: Cardiomegaly. CABG. AICD. No congestive change. OSSEOUS STRUCTURES: No significant abnormalities. VISUALIZED UPPER ABDOMEN: Normal. OTHER FINDINGS: None. IMPRESSION: Right medial basilar and left perihilar opacity, grossly unchanged. Probable small left pleural effusion. Cardiomegaly. AICD.
--- NOTE | 2017-12-30 12:59 | CP.PCM.PCO ---
Addendum entered and electronically signed by Ruperto Virgen DO 12/30/17 17:02: Duplex negative for DVT, Hgb 8.5. Not acute hemorrhage, tachycardia possibly 2/2 fever vs pain. Defer to Primary for further management. Addendum entered and electronically signed by Ruperto Virgen DO 12/30/17 13:02: Called to see patient by nursing due to concern for possible lethargy, increased bloody urine in sol bag. Patient pulled sol again yesterday, replaced, but continues to have bloody urine. Reviewed contents of bag, bloody-colored urine but no appreciated clots. Patient resting but arousable, complaining of right thigh posterior pain. No appreciable mass palpated but patient continues to report pain at site, persisting since last night as per patient. Nursing notes current vitals concerning for tachycardia to 110's, reported fever earlier. AM Hgb was 8.1, as per nursing primary did not wish to transfuse at that time, but nursing concerned patient appears more somnolent now. ID consulted by primary, defer to them for any antibiotic coverage. Will obtain H&H to assess, r/o acutely worsened Hgb. Will also obtain LE duplex to rule out DVT in setting of leg pain and tachycardia, but satting well on room air, so less likely PE. Original Note:
[2017-12-30 14:07] LABS: HEMOGLOBIN 8.5 g/dL (14.0-18.0)
--- NOTE | 2017-12-30 15:21 | CP.PCM.PN ---
<Jean Pierre Kaiser - Last Filed: 12/30/17 15:18> Subjective - Date & Time of Evaluation Date of Evaluation: 12/30/17 Time of Evaluation: 10:30 - Subjective Subjective: PGY-4 GI Fellow Note Pt lying in bed when seen this AM. States that he is not doing well this AM. When ask about details, he only states that his R leg hurts. New temp and tachycardia noted and discussed with RN. She stated that primary, ID and in- house resident aware and work-up is underway. 5 point ROS negative other than stated above but limited due to dementia Objective - Vital Signs/Intake and Output Vital Signs (last 24 hours): Temp Pulse Resp BP Pulse Ox 101.4 F H 118 H 18 172/79 H 99 12/30/17 09:55 12/30/17 09:51 12/30/17 06:00 12/30/17 09:51 12/30/17 06:00 Intake and Output: 12/30/17 12/30/17 06:59 18:59 Intake Total 1080 Output Total 300 Balance -300 1080 - Medications Medications: Current Medications Acetaminophen (Tylenol 325mg Tab) 650 mg PO Q6H PRN PRN Reason: Fever >100.4 F Last Admin: 12/30/17 09:55 Dose: 650 mg Albuterol/Ipratropium (Duoneb 3 Mg/0.5 Mg (3 Ml) Ud) 3 ml IH [id number] PRN PRN Reason: Shortness of Breath Last Admin: 12/26/17 19:55 Dose: 3 ml Amlodipine Besylate (Norvasc) 10 mg PO DAILY [facility] Last Admin: 12/30/17 09:44 Dose: 10 mg Arformoterol Tartrate (Brovana) 15 mcg IH [id number] [facility] Last Admin: 12/30/17 08:19 Dose: 15 mcg Atorvastatin Calcium (Lipitor) 40 mg PO HS [facility] Last Admin: 12/29/17 21:38 Dose: 40 mg Budesonide (Pulmicort Respules) 0.5 mg IH [id number] [facility] Last Admin: 12/30/17 08:19 Dose: 0.5 mg Calcitriol (Rocaltrol) 0.5 mcg PO DAILY [facility] Last Admin: 12/30/17 09:44 Dose: 0.5 mcg Gabapentin (Neurontin) 300 mg PO BID [facility]; Protocol Last Admin: 12/30/17 09:44 Dose: 300 mg Hydralazine HCl (Apresoline) 10 mg PO QID PRN PRN Reason: for SBP>160 Last Admin: 12/29/17 04:48 Dose: 10 mg Cefepime HCl (Maxipime 1gm) 1 gm in 100 mls @ 25 mls/hr IVPB Q24H [facility]; Protocol Stop: 01/06/18 14:31 Linezolid (Zyvox 600mg/300ml D5w) 600 mg in 300 mls @ 200 mls/hr IVPB Q12 [facility]; Protocol Stop: 01/08/18 22:01 Levothyroxine Sodium (Synthroid) 25 mcg PO 0600 [facility] Last Admin: 12/30/17 06:18 Dose: 25 mcg Memantine (Namenda) 10 mg PO DAILY [facility] Last Admin: 12/30/17 09:44 Dose: 10 mg Montelukast Sodium (Singulair) 10 mg PO HS [facility] Last Admin: 12/29/17 21:38 Dose: 10 mg Nicotine (Nicoderm Cq) 1 patch TD DAILY [facility] Last Admin: 12/30/17 09:44 Dose: 1 patch Pantoprazole Sodium (Protonix Ec Tab) 20 mg PO 0600 [facility] Last Admin: 12/30/17 06:18 Dose: 20 mg Tamsulosin HCl (Flomax) 0.4 mg PO DAILY [facility] Last Admin: 12/30/17 09:44 Dose: 0.4 mg - Labs Labs: 12/30/17 13:30 12/30/17 07:00 PT 14.2 SECONDS (9.4-12.5) H 12/29/17 10:05 INR 1.23 12/29/17 10:05 APTT 29.6 Seconds (25.1-36.5) 12/29/17 10:05 - Constitutional Appears: No Acute Distress, Chronically Ill - Head Exam Head Exam: ATRAUMATIC, NORMAL INSPECTION - Eye Exam Eye Exam: Conjunctival injection, EOMI - ENT Exam ENT Exam: Mucous Membranes Dry, Normal External Ear Exam. absent: Mucous Membranes Moist - Cardiovascular Exam Cardiovascular Exam: Tachycardia, REGULAR RHYTHM - GI/Abdominal Exam GI & Abdominal Exam: Soft, Normal Bowel Sounds. absent: Bruit, Distended, Firm, Guarding, Rigid, Tenderness, Mass, Organomegaly, Pulsatile Mass Assessment and Plan - Assessment and Plan (Free Text) Assessment: 87 year old male with past medical history of COPD, CHF s/p AICD, HTN, CAD s/p CABG, CKD stage IV, dementia, iron deficiency anemia, hx of gastritis, HLD with severe anemia. Acute blood loss anemia due to GI bleed: AVMs on CSPY and EGD s/p bipolar cautery to prevent bleeding.Gastric AVM had active bleeding and was injected with epi and clipped. Acute on chronic kidney injury Demenita HTN HLD CHF s/p AICD (EF of 55%) SIRS: Temp 101.4, inc HR and inc RR. Primary and consultants aware; w/u underway. Plan: - EGD 12/25/17 with gastric and duodenal bulb AVMs. Gastric AVM had active bleeding and was injected with epi and clipped, f/u Pathology - CSPY with multiple AVMs s/p bicap cautery to prevent bleeding - s/p 2 units pRBCs 12/25/17 with appropriate response - Advanced diet to soft, heart healthy - Continue PPI - Abd/Pelvis with PO contrast: No obvious GI mass. - Monitor H/H with serial CBC, transfuse if symptomatic or hgb<7 - Avoid NSAIDs, blood thinners. Pt discussed with Dr. Murdock; see attestation for further recs/changes <Ramon Murdock V - Last Filed: 12/31/17 01:07> Objective - Vital Signs/Intake and Output Vital Signs (last 24 hours): Temp Pulse Resp BP Pulse Ox 102.4 F H 116 H 16 119/59 L 93 L 12/31/17 00:49 12/30/17 22:00 12/30/17 22:00 12/30/17 22:00 12/30/17 22:00 Intake and Output: 12/30/17 12/31/17 18:59 06:59 Intake Total 1080 Balance 1080 - Medications Medications: Current Medications Acetaminophen (Tylenol 325mg Tab) 650 mg PO Q6H PRN PRN Reason: Fever >100.4 F Last Admin: 12/30/17 20:13 Dose: 650 mg Albuterol/Ipratropium (Duoneb 3 Mg/0.5 Mg (3 Ml) Ud) 3 ml IH [id number] PRN PRN Reason: Shortness of Breath Last Admin: 12/26/17 19:55 Dose: 3 ml Amlodipine Besylate (Norvasc) 10 mg PO DAILY [facility] Last Admin: 12/30/17 09:44 Dose: 10 mg Arformoterol Tartrate (Brovana) 15 mcg IH [id number] [facility] Last Admin: 12/30/17 20:30 Dose: 15 mcg Atorvastatin Calcium (Lipitor) 40 mg PO HS [facility] Last Admin: 12/30/17 22:02 Dose: 40 mg Budesonide (Pulmicort Respules) 0.5 mg IH [id number] [facility] Last Admin: 12/30/17 20:30 Dose: 0.5 mg Calcitriol (Rocaltrol) 0.5 mcg PO DAILY [facility] Last Admin: 12/30/17 09:44 Dose: 0.5 mcg Gabapentin (Neurontin) 300 mg PO BID [facility]; Protocol Last Admin: 12/30/17 18:22 Dose: Not Given Hydralazine HCl (Apresoline) 10 mg PO QID PRN PRN Reason: for SBP>160 Last Admin: 12/29/17 04:48 Dose: 10 mg Cefepime HCl (Maxipime 1gm) 1 gm in 100 mls @ 25 mls/hr IVPB Q24H [facility]; Protocol Stop: 01/06/18 14:31 Last Admin: 12/30/17 16:34 Dose: 25 mls/hr Linezolid (Zyvox 600mg/300ml D5w) 600 mg in 300 mls @ 200 mls/hr IVPB Q12 [facility]; Protocol Stop: 01/08/18 22:01 Last Admin: 12/30/17 22:02 Dose: 200 mls/hr Levothyroxine Sodium (Synthroid) 25 mcg PO 0600 [facility] Last Admin: 12/30/17 06:18 Dose: 25 mcg Memantine (Namenda) 10 mg PO DAILY [facility] Last Admin: 12/30/17 09:44 Dose: 10 mg Montelukast Sodium (Singulair) 10 mg PO HS [facility] Last Admin: 12/30/17 22:02 Dose: 10 mg Nicotine (Nicoderm Cq) 1 patch TD DAILY [facility] Last Admin: 12/30/17 09:44 Dose: 1 patch Pantoprazole Sodium (Protonix Ec Tab) 20 mg PO 0600 [facility] Last Admin: 12/30/17 06:18 Dose: 20 mg Tamsulosin HCl (Flomax) 0.4 mg PO DAILY [facility] Last Admin: 12/30/17 09:44 Dose: 0.4 mg - Labs Labs: 12/30/17 13:30 12/30/17 07:00 PT 14.2 SECONDS (9.4-12.5) H 12/29/17 10:05 INR 1.23 12/29/17 10:05 APTT 29.6 Seconds (25.1-36.5) 12/29/17 10:05 Attending/Attestation - Attestation I have personally seen and examined this patient.: Yes I have fully participated in the care of the patient.: Yes I have reviewed all pertinent clinical information, including history, physical exam and plan: Yes Notes (Text): This is an addendum to GI progress report dictated by the GI Fellow.The patient was seen and examined earlier. Medical records, lab studies, imagings were reviewed. Last 24 hours events reviewed. Agreed with the above treatment plan as outlined in GI Fellow 's notes with the addition of the following Patient spiked fever 101 Denies any abdominal pain On examination abdomen soft non-tender Status post bicap treatment of stomach and duodenum in the past colon multiple AVMs treated with bicap earlier Followup cultures continue antibiotics as per ID Patient was advised to have only puree diet with assistance Patient is edentulous Followup of the 12/31/17 01:03
--- NOTE | 2017-12-30 15:25 | CP.PCM.PN ---
Subjective - Date & Time of Evaluation Date of Evaluation: 12/30/17 Time of Evaluation: 09:40 - Subjective Subjective: confused, mildly tachypneic & tachycardic Objective - Vital Signs/Intake and Output Vital Signs (last 24 hours): Temp Pulse Resp BP Pulse Ox 101.4 F H 118 H 18 172/79 H 99 12/30/17 09:55 12/30/17 09:51 12/30/17 06:00 12/30/17 09:51 12/30/17 06:00 Intake and Output: 12/30/17 12/30/17 06:59 18:59 Intake Total 1080 Output Total 300 Balance -300 1080 - Medications Medications: Current Medications Acetaminophen (Tylenol 325mg Tab) 650 mg PO Q6H PRN PRN Reason: Fever >100.4 F Last Admin: 12/30/17 09:55 Dose: 650 mg Albuterol/Ipratropium (Duoneb 3 Mg/0.5 Mg (3 Ml) Ud) 3 ml IH [id number] PRN PRN Reason: Shortness of Breath Last Admin: 12/26/17 19:55 Dose: 3 ml Amlodipine Besylate (Norvasc) 10 mg PO DAILY [facility] Last Admin: 12/30/17 09:44 Dose: 10 mg Arformoterol Tartrate (Brovana) 15 mcg IH [id number] [id number] Last Admin: 12/30/17 08:19 Dose: 15 mcg Atorvastatin Calcium (Lipitor) 40 mg PO HS [facility] Last Admin: 12/29/17 21:38 Dose: 40 mg Budesonide (Pulmicort Respules) 0.5 mg IH [id number] [facility] Last Admin: 12/30/17 08:19 Dose: 0.5 mg Calcitriol (Rocaltrol) 0.5 mcg PO DAILY [facility] Last Admin: 12/30/17 09:44 Dose: 0.5 mcg Gabapentin (Neurontin) 300 mg PO BID [facility]; Protocol Last Admin: 12/30/17 09:44 Dose: 300 mg Hydralazine HCl (Apresoline) 10 mg PO QID PRN PRN Reason: for SBP>160 Last Admin: 12/29/17 04:48 Dose: 10 mg Cefepime HCl (Maxipime 1gm) 1 gm in 100 mls @ 25 mls/hr IVPB Q24H [facility]; Protocol Stop: 01/06/18 14:31 Linezolid (Zyvox 600mg/300ml D5w) 600 mg in 300 mls @ 200 mls/hr IVPB Q12 [facility]; Protocol Stop: 01/08/18 22:01 Levothyroxine Sodium (Synthroid) 25 mcg PO 0600 [facility] Last Admin: 12/30/17 06:18 Dose: 25 mcg Memantine (Namenda) 10 mg PO DAILY [facility] Last Admin: 12/30/17 09:44 Dose: 10 mg Montelukast Sodium (Singulair) 10 mg PO HS [facility] Last Admin: 12/29/17 21:38 Dose: 10 mg Nicotine (Nicoderm Cq) 1 patch TD DAILY [facility] Last Admin: 12/30/17 09:44 Dose: 1 patch Pantoprazole Sodium (Protonix Ec Tab) 20 mg PO 0600 [facility] Last Admin: 12/30/17 06:18 Dose: 20 mg Tamsulosin HCl (Flomax) 0.4 mg PO DAILY [facility] Last Admin: 12/30/17 09:44 Dose: 0.4 mg - Labs Labs: 12/30/17 13:30 12/30/17 07:00 PT 14.2 SECONDS (9.4-12.5) H 12/29/17 10:05 INR 1.23 12/29/17 10:05 APTT 29.6 Seconds (25.1-36.5) 12/29/17 10:05 - Respiratory Exam Respiratory Exam: Rhonchi - Cardiovascular Exam Cardiovascular Exam: Tachycardia, REGULAR RHYTHM, Murmur - GI/Abdominal Exam GI & Abdominal Exam: Soft, Normal Bowel Sounds - Extremities Exam Extremities Exam: Normal Inspection - Neurological Exam Neurological Exam: Altered, Awake - Skin Skin Exam: Dry, Warm Assessment and Plan (1) Anemia Status: Chronic (2) CHF (congestive heart failure) Status: Acute (3) HTN (hypertension) Status: Chronic - Assessment and Plan (Free Text) Assessment: fever/tachycardia r/o sepsis Plan: ID consult Dr. Summers, pt started empircally on cefepime IV, cultures ordered, Dr. Rivas to resume acre of patient in am
[2017-12-30] MEDS: Cefepime 1gm in NS 100ml 1 GM/100 ML BAG IVPB SCH (16:34)
[2017-12-30 20:46] LABS: PH,URINE 6.5 (4.7-8.0); URINE APPEARANCE CLOUDY (CLEAR); URINE BILIRUBIN LARGE (NEGATIVE); URINE BLOOD LARGE (NEGATIVE); URINE COLOR DARK BROWN (YELLOW); URINE GLUCOSE (UA) 250 mg/dL (NEGATIVE); URINE LEUKOCYTE ESTERASE MODERATE Leu/uL (NEGATIVE); URINE PROTEIN >=300 mg/dL (<30 mg/dL)
[2017-12-30 20:53] LABS: URINE BACTERIA LARGE (NEG); URINE RBC TNTC /hpf (0-2); URINE WBC TNTC /hpf (0-6)
[2017-12-30] MEDS ORDERED: Linezolid 600 mg in D5W 300 ml 600 MG/300 ML BAG IVPB SCH (22:00)
--- NOTE | 2017-12-31 00:17 | CON ---
DATE OF CONSULTATION: 12/30/2017 The patient was seen earlier today in 563, Bed 1. CHIEF COMPLAINT: Weakness times several days. This is an 87-year-old male who was admitted with a diagnosis of anemia and congestive heart failure approximately 10 days ago and now has a fever, which is new. Infectious disease consultation requested. HISTORY OF PRESENT ILLNESS: This is an 87-year-old male with chronic obstructive lung disease, cardiomyopathy, pulmonary hypertension, cardiac diastolic dysfunction, coronary artery disease, hypertension, dyslipidemia, active smoker, iron-deficiency anemia, and within the hospital, now has a new fever. There has been mild shortness of breath. No chest pain. No abdominal pain. He does have a Mann catheter. REVIEW OF SYSTEMS: A 12-point review of systems has been performed. PAST MEDICAL HISTORY: Significant for coronary artery disease, cardiomyopathy, chronic obstructive lung disease, pulmonary hypertension, and congestive heart failure, which is diastolic, coronary artery disease, hypertension, anemia, and dementia. PAST SURGICAL HISTORY: Significant for cardiac catheterization, pacemaker and coronary artery bypass graft. ALLERGIES: THE PATIENT HAS NO KNOWN ALLERGIES. MEDICATIONS: Reviewed. PHYSICAL EXAMINATION: The patient's temperature is 101.4, heart rate of 118, blood pressure is 161/70, and respiratory rate of 20, was up to 28. Examination of HEENT is unremarkable. Neck is supple. Lungs have decreased breath sounds. Heart exam, normal S1, S2. Abdominal examination is soft, nontender. No organomegaly, no rebound, no guarding, no masses. LABORATORY EXAMINATION: Reveals a white count of 10,000, hemoglobin of 8, platelets of 208. Chemistries reveal a BUN of 25, creatinine of 2.2. Urinalysis is noted and immunology is noted. Serology is reviewed, microbiology and urine culture. Review of orders reveals blood cultures have been ordered today. Urine cultures have been ordered, but not collected. Urinalysis will be ordered. The patient had a chest x-ray today. The chest x-ray shows a left opacity and right base opacity. ASSESSMENT AND PLAN: The patient is an 87-year-old male with chronic obstructive lung disease, cardiomyopathy, hypertension, pulmonary hypertension, diastolic congestive heart failure, coronary artery disease, dementia, anemia, who is admitted. The patient has a long hospital stay with anemia, congestive heart failure, and now has a new fever, tachycardia, infiltrate with healthcare-associated pneumonia, probable Gram-positive cocci, probable Gram-negative gisela. We will order Zyvox and Maxipime, Maxipime will be 1 g daily. We will order pancultures, blood, urine, sputum, nasal MRSA screen, and procalcitonin. We will make further recommendations upon availability of cultures and initial workup results. Overall, prognosis is quite poor for this patient with end stage of life. Should consider supportive care. Thor Fairbanks MD
--- NOTE | 2017-12-31 02:13 | PN ---
DATE: 12/30/2017 PULMONARY PROGRESS NOTE REFERRING PHYSICIAN: Dr. Rivas. SUBJECTIVE: He is lying in the bed, requiring restraint of upper extremities. Still has hematuria in Mann catheter. No hemoptysis, no hematemesis, no vomiting. No leg swelling reported. PHYSICAL EXAMINATION VITAL SIGNS: Spiked fever up to 101, heart rate is 118, respiratory rate is 18, blood pressure 172/79, pulse ox 99% on nasal cannula. HEENT: Moist mucous membranes. Crowded airway. NECK: Supple. No JVD. LUNGS: Have a fair airflow with some rhonchi. HEART: S1, S2. ABDOMEN: Soft, nontender, nondistended, has a Mann catheter with bloody urine. EXTREMITIES: There is no edema. NEUROLOGIC: Awake and alert. Follows simple command. MEDICATIONS: He is on hydralazine 10 mg four times a day p.r.n., Brovana inhaled twice a day, DuoNeb every 6 hours p.r.n., Flomax 0.4 mg daily, Lipitor 40 mg daily, cefepime 1 g IV daily started today, Namenda 10 mg daily, Neurontin 300 mg twice a day, Nicoderm patch daily, Norvasc 10 mg daily, Protonix 40 mg daily, budesonide inhaled twice a day, calcitriol 0.5 mcg p.o. daily, Singulair 10 mg daily, Synthroid 25 mcg daily, Tylenol p.r.n., Zyvox 300 mg every 12 hours. LABORATORY DATA: Shows hemoglobin 8.5, hematocrit 27.6, WBC is 10,000; platelet is 208. Sodium 145, potassium 4.8, chloride 115, bicarbonate 25, BUN 25, creatinine 2.2, glucose 86, calcium 8.7, AST 32, ALT 27, alk phos is 101. Albumin is 2.9. Has a venous Doppler done, report is pending. Chest x-ray done today shows right medial basilar and left perihilar opacity, a small left effusion, cardiomegaly, has AICD. IMPRESSION AND PLAN: Sepsis, which is healthcare-associated, where he tried to pull the catheter out, ended up with hematuria, could have prostatitis. Also cannot rule out pneumonia, chronic obstructive lung disease, cardiomyopathy, pulmonary hypertension, cardiac diastolic dysfunction, coronary artery disease, hyperlipidemia, iron-deficiency anemia. Has a gastric angiopathy. Spoke to nursing staff. Antibiotic started. We will keep head elevated at 45 degrees. He should be fed only when he is sitting up. Gastric prophylaxis. SCDs to lower extremities for clinical chemical DVT prophylaxis because of gastric angiopathy and also known hematuria. Follow up labs in the morning. We will order proBNP, procalcitonin the morning. Thank you and we will follow with you. Radha Vail MD
[2017-12-31] MEDS ORDERED: Sodium Chloride 0.9% 500 ML IV STA (04:08)
--- NOTE | 2017-12-31 06:32 | CP.PCM.PN ---
Subjective - Date & Time of Evaluation Date of Evaluation: 12/31/17 Time of Evaluation: 06:20 - Subjective Subjective: No distress, lying in bed,confuse,awake Reason for consultation and follow up: Cardiac evaluation for elevated BNP, rule out congestive heart failure Seen and examined by me and Dr. Woodward Objective - Vital Signs/Intake and Output Vital Signs (last 24 hours): Temp Pulse Resp BP Pulse Ox 98.9 F 94 H 30 H 112/54 L 99 12/31/17 05:43 12/31/17 05:15 12/31/17 04:02 12/31/17 05:15 12/31/17 04:02 Intake and Output: 12/30/17 12/31/17 18:59 06:59 Intake Total 1080 Balance 1080 - Medications Medications: Current Medications Acetaminophen (Tylenol 325mg Tab) 650 mg PO Q6H PRN PRN Reason: Fever >100.4 F Last Admin: 12/31/17 01:25 Dose: 650 mg Albuterol/Ipratropium (Duoneb 3 Mg/0.5 Mg (3 Ml) Ud) 3 ml IH [id number] PRN PRN Reason: Shortness of Breath Last Admin: 12/26/17 19:55 Dose: 3 ml Amlodipine Besylate (Norvasc) 10 mg PO DAILY [facility] Last Admin: 12/30/17 09:44 Dose: 10 mg Arformoterol Tartrate (Brovana) 15 mcg IH [id number] [facility] Last Admin: 12/30/17 20:30 Dose: 15 mcg Atorvastatin Calcium (Lipitor) 40 mg PO HS [facility] Last Admin: 12/30/17 22:02 Dose: 40 mg Budesonide (Pulmicort Respules) 0.5 mg IH [id number] [facility] Last Admin: 12/30/17 20:30 Dose: 0.5 mg Calcitriol (Rocaltrol) 0.5 mcg PO DAILY [facility] Last Admin: 12/30/17 09:44 Dose: 0.5 mcg Gabapentin (Neurontin) 300 mg PO BID [facility]; Protocol Last Admin: 12/30/17 18:22 Dose: Not Given Hydralazine HCl (Apresoline) 10 mg PO QID PRN PRN Reason: for SBP>160 Last Admin: 12/29/17 04:48 Dose: 10 mg Cefepime HCl (Maxipime 1gm) 1 gm in 100 mls @ 25 mls/hr IVPB Q24H [facility]; Protocol Stop: 01/06/18 14:31 Last Admin: 12/30/17 16:34 Dose: 25 mls/hr Linezolid (Zyvox 600mg/300ml D5w) 600 mg in 300 mls @ 200 mls/hr IVPB Q12 [facility]; Protocol Stop: 01/08/18 22:01 Last Admin: 12/30/17 22:02 Dose: 200 mls/hr Levothyroxine Sodium (Synthroid) 25 mcg PO 0600 [facility] Last Admin: 12/30/17 06:18 Dose: 25 mcg Memantine (Namenda) 10 mg PO DAILY [facility] Last Admin: 12/30/17 09:44 Dose: 10 mg Montelukast Sodium (Singulair) 10 mg PO HS [facility] Last Admin: 12/30/17 22:02 Dose: 10 mg Nicotine (Nicoderm Cq) 1 patch TD DAILY [facility] Last Admin: 12/30/17 09:44 Dose: 1 patch Pantoprazole Sodium (Protonix Ec Tab) 20 mg PO 0600 [facility] Last Admin: 12/30/17 06:18 Dose: 20 mg Tamsulosin HCl (Flomax) 0.4 mg PO DAILY [facility] Last Admin: 12/30/17 09:44 Dose: 0.4 mg - Labs Labs: 12/30/17 13:30 12/30/17 07:00 PT 14.2 SECONDS (9.4-12.5) H 12/29/17 10:05 INR 1.23 12/29/17 10:05 APTT 29.6 Seconds (25.1-36.5) 12/29/17 10:05 - Constitutional Appears: Non-toxic, No Acute Distress - Head Exam Head Exam: NORMAL INSPECTION, NORMOCEPHALIC - ENT Exam ENT Exam: Mucous Membranes Dry - Respiratory Exam Respiratory Exam: Decreased Breath Sounds, Clear to Ausculation Bilateral Additional comments: tachypneic - Cardiovascular Exam Cardiovascular Exam: JVD, +S1, +S2 - GI/Abdominal Exam GI & Abdominal Exam: Soft, Normal Bowel Sounds - Exam Additional comments: sol catheter - Extremities Exam Extremities Exam: Full ROM - Neurological Exam Neurological Exam: Alert, Awake Additional comments: confuse - Skin Skin Exam: Dry, Normal Color, Warm Assessment and Plan - Assessment and Plan (Free Text) Assessment: An 87 year old male who was brought in from [facility] due to low hemoglobin.History of COPD,chronic diastolic CHF, hypertension, hyperlipidemia, dementia,anemia, coronary artery disease post CABG,cardiomyopathy, LVEF from ECHO 20%, AICD. Admitted for acute renal injury, severe anemia. Blood transfusion of 2 units PRBC given.On iron infusion.Repeat H/H stable. Confuse, GI work up. Had EGD with clipping and biopsy , active bleeding with multiple duodenal arteriovenous malformations, gastric arteriovenous malformations as Dieulafoy lesion.2 units PRBC given for low H/H. Confuse, pulled out IV and sol catheter.on soft wrist restraints. 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 Continue current treatment Continue current medications Fall precaution Aspiration precaution Chart reviewed Will follow up Plan and treatment discussed with Dr. Woodward
[2017-12-31] MEDS: Pantoprazole 20 mg EC Tab PO SCH ×2 (06:33→08:16)
[2017-12-31] MEDS: Levothyroxine 25 MCG TAB PO SCH ×2 (06:33→08:16)
[2017-12-31 07:08] LABS: ALB/GLOB RATIO 0.8 (1.1-1.8); ALBUMIN 2.6 g/dL (3.0-4.8)
[2017-12-31 07:14] LABS: MEAN CELL VOLUME 87.8 fl (80.0-105.0); MEAN CORPUSCULAR HEMOGLOBIN 27.2 pg (25.0-35.0); MEAN PLATELET VOLUME 10.1 fl (7.0-11.0); RBC 2.46 10^6/uL (3.5-6.1); RED CELL DISTRIBUTION WIDTH 19.5 % (11.5-14.5); WHITE BLOOD COUNT 23.2 10^3/ul (4.5-11.0)
[2017-12-31 07:32] LABS: HEMOGLOBIN 6.7 g/dL (14.0-18.0)
[2017-12-31] MEDS: Arformoterol 15 mcg/2 ml Inh Sol IH SCH ×2 (08:06→20:30)
[2017-12-31] MEDS: Budesonide 0.5 mg/2 ml Inhal Susp UD IH SCH ×2 (08:06→20:30)
--- NOTE | 2017-12-31 08:54 | PN ---
DATE: 12/28/2017 This note is an addition to dictated by our nurse practitioner, Marely Padilla. Cardiac evaluation, history of AICD, cardiomyopathy, anemia, bleed. Yesterday, the patient pulled the catheter, although two units of packed RBC were given, dropped hemoglobin again to 8.2. Now, the patient is in two-point [place] restraint, appears awake and alert. GI workup was done. Patient is stable, okay to be discharged from Cardiology point of view, but the patient needs [place] restraint patient keep on pulling the Mann catheter and can cause traumatic rupture of urethra. We will follow with you. CVS status is stable. Thank you, Dr. Rivas, for providing us the opportunity in taking care of the patient, Faraz Zuñiga. Radha Woodward MD
--- NOTE | 2017-12-31 09:08 | PN ---
DATE: 12/27/2017 UROLOGY PROGRESS NOTE SUBJECTIVE: Please see the consultation note from 12/26/2017. This is a progress note on 12/27/2017. So the history is as follows. This is a very pleasant gentleman, who was in the hospital under the care of Dr. Rivas. From urology standpoint, we actually saw the patient yesterday as well. We have removed his Mann catheter and there was with the balloon inflated, he had blood in the urine that absolutely was cleared up. After that, we would start to manage the patient conservatively. He has no baseline history of blood in the urine. Then, today, he experienced blood again in the urine. Mann catheter inserted by the urethra and there was still some blood tinge (see below), but it now is cleared and we are going to bring the patient to the operating room for a cystoscopy today. The patient is scheduled for colonoscopy tomorrow (this seems to be more ). The past medical and surgical as listed on the chart. Medications, allergies all listed. See review of systems. PHYSICAL EXAMINATION: GENERAL: A well-nourished male, in no apparent distress. VITAL SIGNS: Noted. ABDOMEN: Relatively soft. Grossly distended. GENITOURINARY: The Mann catheter is in place. The urine in the bag, there is some blood, but in the tubing, it is essentially clear. DIAGNOSES: Gross hematuria ( ). ASSESSMENT AND PLAN: A very pleasant gentleman. He is 87 years old. He does not have a baseline hematuria. This is all seems to be being in the hospital since we removed the catheter. So at this point, we would like to hold off doing the cystoscopy. He may require it, he definitely need to rule out any malignancy, particularly in an 87-year-old gentleman, rule out any bladder cancer. We can determine this with imaging. We do not want to delay his preparation for his colonoscopy. He is taking a bowel prep and we do not want to delay that. So from urology standpoint, we would leave the Mann catheter in place and we will monitor him. I asked him very clearly to please not remove it again. I explained about the balloon, etc and that while it is uncomfortable, we will try to get out as quickly as possible. But for now we have asked him to leave it in place. So the plans as follow, 1. Urine cytology. 2. Imaging with an ultrasound, CAT scan, etc. 3. We will plan for a possible trial of void to follow, may be either on 12/28/2017 or 12/29/2017. 4. Then we will decide together what to do next. I explained this to the patient and his girlfriend that is at bedside. Lul Langford MD
[2017-12-31] MEDS ORDERED: Vancomycin 1gm in NS 250ml 1 GM/250 ML BAG IVPB STA ×2 (09:20→22:38)
[2017-12-31 09:54] LABS: HEMOGLOBIN 7.2 g/dL (14.0-18.0)
--- NOTE | 2017-12-31 10:57 | CP.PCM.PN ---
<LincolnIsa crews - Last Filed: 12/31/17 13:27> Subjective - Date & Time of Evaluation Date of Evaluation: 12/31/17 Time of Evaluation: 07:00 - Subjective Subjective: PGY-3 Nephrology Progress Note for Dr. Andrade Patient seen and examined at bedside. Patient is resting comfortably in bed, on wrist restraints. Overnight patient had fever with hypotension requiring IVF. Mann was discontinued Objective - Vital Signs/Intake and Output Vital Signs (last 24 hours): Temp Pulse Resp BP Pulse Ox 98.9 F 90 18 105/49 L 96 12/31/17 06:00 12/31/17 06:00 12/31/17 06:00 12/31/17 06:00 12/31/17 06:00 - Medications Medications: Current Medications Acetaminophen (Tylenol 325mg Tab) 650 mg PO Q6H PRN PRN Reason: Fever >100.4 F Last Admin: 12/31/17 01:25 Dose: 650 mg Albuterol/Ipratropium (Duoneb 3 Mg/0.5 Mg (3 Ml) Ud) 3 ml IH [id number] PRN PRN Reason: Shortness of Breath Last Admin: 12/26/17 19:55 Dose: 3 ml Albuterol/Ipratropium (Duoneb 3 Mg/0.5 Mg (3 Ml) Ud) 3 ml IH [id number] [facility] Amlodipine Besylate (Norvasc) 10 mg PO DAILY [facility] Last Admin: 12/30/17 09:44 Dose: 10 mg Arformoterol Tartrate (Brovana) 15 mcg IH [id number] [facility] Last Admin: 12/31/17 08:06 Dose: 15 mcg Atorvastatin Calcium (Lipitor) 40 mg PO HS [facility] Last Admin: 12/30/17 22:02 Dose: 40 mg Budesonide (Pulmicort Respules) 0.5 mg IH [id number] [facility] Last Admin: 12/31/17 08:06 Dose: 0.5 mg Calcitriol (Rocaltrol) 0.5 mcg PO DAILY [facility] Last Admin: 12/31/17 09:46 Dose: Not Given Furosemide (Lasix) 40 mg IVP ONCE ONE Stop: 12/31/17 14:01 Gabapentin (Neurontin) 300 mg PO BID [facility]; Protocol Last Admin: 12/31/17 10:54 Dose: Not Given Hydralazine HCl (Apresoline) 10 mg PO QID PRN PRN Reason: for SBP>160 Last Admin: 12/29/17 04:48 Dose: 10 mg Cefepime HCl (Maxipime 1gm) 1 gm in 100 mls @ 25 mls/hr IVPB Q24H [facility]; Protocol Stop: 01/06/18 14:31 Last Admin: 12/30/17 16:34 Dose: 25 mls/hr Linezolid (Zyvox 600mg/300ml D5w) 600 mg in 300 mls @ 200 mls/hr IVPB Q12 [facility]; Protocol Stop: 01/08/18 22:01 Last Admin: 12/30/17 22:02 Dose: 200 mls/hr Levothyroxine Sodium (Synthroid) 25 mcg PO 0600 [facility] Last Admin: 12/31/17 08:16 Dose: Not Given Memantine (Namenda) 10 mg PO DAILY [facility] Last Admin: 12/31/17 09:44 Dose: Not Given Montelukast Sodium (Singulair) 10 mg PO HS [facility] Last Admin: 12/30/17 22:02 Dose: 10 mg Nicotine (Nicoderm Cq) 1 patch TD DAILY [facility] Last Admin: 12/31/17 09:38 Dose: 1 patch Pantoprazole Sodium (Protonix Ec Tab) 20 mg PO 0600 [facility] Last Admin: 12/31/17 08:16 Dose: Not Given Tamsulosin HCl (Flomax) 0.4 mg PO DAILY [facility] Last Admin: 12/31/17 09:43 Dose: Not Given - Labs Labs: 12/31/17 09:40 12/31/17 06:10 PT 14.2 SECONDS (9.4-12.5) H 12/29/17 10:05 INR 1.23 12/29/17 10:05 APTT 29.6 Seconds (25.1-36.5) 12/29/17 10:05 - Constitutional Appears: No Acute Distress - Head Exam Head Exam: ATRAUMATIC, NORMAL INSPECTION, NORMOCEPHALIC - Eye Exam Eye Exam: EOMI, Normal appearance. absent: Conjunctival injection, Periorbital swelling, Scleral icterus - ENT Exam ENT Exam: Mucous Membranes Moist, Normal External Ear Exam. absent: Mucous Membranes Dry - Neck Exam Neck Exam: Normal Inspection. absent: Meningismus, Tenderness - Respiratory Exam Respiratory Exam: Clear to Ausculation Bilateral, NORMAL BREATHING PATTERN. absent: Accessory Muscle Use, Chest Wall Tenderness, Decreased Breath Sounds, Rales, Respiratory Distress - Cardiovascular Exam Cardiovascular Exam: REGULAR RHYTHM. absent: Bradycardia, Tachycardia, Murmur - GI/Abdominal Exam GI & Abdominal Exam: Soft, Normal Bowel Sounds. absent: Distended, Firm, Guar ding, Rigid, Tenderness - Extremities Exam Extremities Exam: Normal Inspection. absent: Calf Tenderness, Joint Swelling, Pedal Edema, Tenderness - Neurological Exam Neurological Exam: Alert, Awake, CN II-XII Intact. absent: Oriented x3 - Psychiatric Exam Psychiatric exam: Normal Affect, Normal Mood. 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 No plan for renal replacement at this time. Ptaient had fever yesterday adn overnight, blood cultures was positive for gram positive cocci. ID following. Creatinine increased this AM, possibly due to bactremia. continue calcitriol for secondary hyperparathyriodism. Patient received 2 dose of Venofer, and 4 units prbc total. EGD showed bleeding angiodysplastic lesion which was injected and clipped. Hgb dropped this am, will get transfusion. Will stop amlodipine dueto hypotension overnight. Will continue to monitor kidney function and electrolytes. Continue to monitor I&O. Patient is on gentle hydration for hypovolemia. Case discussed and reviewed with Dr. Andrade. <Spencer Andrade - Last Filed: 12/31/17 20:58> Objective - Vital Signs/Intake and Output Vital Signs (last 24 hours): Temp Pulse Resp BP Pulse Ox 98 F 105 H 20 141/63 96 12/31/17 18:21 12/31/17 18:21 12/31/17 18:21 12/31/17 18:45 12/31/17 14:00 Intake and Output: 12/31/17 01/01/18 18:59 06:59 Intake Total 50 600 Output Total 401 Balance 50 199 - Medications Medications: Current Medications Acetaminophen (Tylenol 325mg Tab) 650 mg PO Q6H PRN PRN Reason: Fever >100.4 F Last Admin: 12/31/17 01:25 Dose: 650 mg Albuterol/Ipratropium (Duoneb 3 Mg/0.5 Mg (3 Ml) Ud) 3 ml IH [id number] PRN PRN Reason: Shortness of Breath Last Admin: 12/26/17 19:55 Dose: 3 ml Albuterol/Ipratropium (Duoneb 3 Mg/0.5 Mg (3 Ml) Ud) 3 ml IH [id number] [facility] Amlodipine Besylate (Norvasc) 10 mg PO DAILY [facility] Last Admin: 12/30/17 09:44 Dose: 10 mg Arformoterol Tartrate (Brovana) 15 mcg IH [id number] [facility] Last Admin: 12/31/17 08:06 Dose: 15 mcg Atorvastatin Calcium (Lipitor) 40 mg PO HS [facility] Last Admin: 12/30/17 22:02 Dose: 40 mg Budesonide (Pulmicort Respules) 0.5 mg IH [id number] [facility] Last Admin: 12/31/17 08:06 Dose: 0.5 mg Calcitriol (Rocaltrol) 0.5 mcg PO DAILY [facility] Last Admin: 12/31/17 09:46 Dose: Not Given Gabapentin (Neurontin) 300 mg PO BID [facility]; Protocol Last Admin: 12/31/17 18:03 Dose: 300 mg Hydralazine HCl (Apresoline) 10 mg PO QID PRN PRN Reason: for SBP>160 Last Admin: 12/29/17 04:48 Dose: 10 mg Cefepime HCl (Maxipime 1gm) 1 gm in 100 mls @ 25 mls/hr IVPB Q24H [facility]; Protocol Stop: 01/06/18 14:31 Last Admin: 12/31/17 18:45 Dose: 25 mls/hr Linezolid (Zyvox 600mg/300ml D5w) 600 mg in 300 mls @ 200 mls/hr IVPB Q12 [facility]; Protocol Stop: 01/08/18 22:01 Last Admin: 12/30/17 22:02 Dose: 200 mls/hr Levothyroxine Sodium (Synthroid) 25 mcg PO 0600 [facility] Last Admin: 12/31/17 08:16 Dose: Not Given Memantine (Namenda) 10 mg PO DAILY [facility] Last Admin: 12/31/17 09:44 Dose: Not Given Montelukast Sodium (Singulair) 10 mg PO HS [facility] Last Admin: 12/30/17 22:02 Dose: 10 mg Nicotine (Nicoderm Cq) 1 patch TD DAILY [facility] Last Admin: 12/31/17 09:38 Dose: 1 patch Pantoprazole Sodium (Protonix Ec Tab) 20 mg PO 0600 [facility] Last Admin: 12/31/17 08:16 Dose: Not Given Tamsulosin HCl (Flomax) 0.4 mg PO DAILY [facility] Last Admin: 12/31/17 09:43 Dose: Not Given - Labs Labs: 12/31/17 09:40 12/31/17 06:10 PT 14.2 SECONDS (9.4-12.5) H 12/29/17 10:05 INR 1.23 12/29/17 10:05 APTT 29.6 Seconds (25.1-36.5) 12/29/17 10:05 Assessment and Plan - Assessment and Plan (Free Text) Assessment: Pt seen and examined. I have reviewed the note of the medical orderly and agree with it. I have discussed the assessment and plan with the resident. I have reviewed the patient's labs and medications. Pt with low Hb and getting blood transfusion. Cr is elevated due to UZAIR from blood loss. He has been given iron iv for deficiency. Pt had low BP and Amlodipine was stopped. Pt had a fever and ID following. BP improvement with PRBC transfusion will prevent further UZAIR and should improve Cr.
--- NOTE | 2017-12-31 13:32 | US ---
HISTORY: Leg pain and swelling. Evaluate for DVT PHYSICIAN(S): Vahe Cedillo MD. TECHNIQUE: Duplex sonography and color-flow Doppler with graded compression were used to evaluate the deep venous systems of both lower extremities. The exam is limited by edema FINDINGS: The visualized deep venous systems of both lower extremities are sonographically normal and compressible. Normal wave forms and augmentation are seen. There is no sonographic evidence for deep venous thrombosis in the visualized segments of both lower extremities. IMPRESSION: No sonographic evidence for deep venous thrombosis in the visualized segments of both lower extremities.
--- NOTE | 2017-12-31 16:31 | PCM.URO ---
Urology Progress Note - Objective Lab Studies: Reviewed (gu dx: hematuria gu plans :cystoscopy for tomorrow) Lab Results Last 24 Hours: Laboratory Results - last 24 hr 12/30/17 12/30/17 12/31/17 14:15 20:25 06:10 WBC 23.2 H D RBC 2.46 L Hgb 6.7 L* Hct 21.6 L MCV 87.8 MCH 27.2 MCHC 31.0 RDW 19.5 H Plt Count 161 MPV 10.1 Sodium Potassium Chloride Carbon Dioxide Anion Gap BUN Creatinine Est GFR ( Amer) Est GFR (Non-Af Amer) Random Glucose Calcium Total Bilirubin AST ALT Alkaline Phosphatase Total Protein Albumin Globulin Albumin/Globulin Ratio Procalcitonin 0.06 L Urine Color Dark brown Urine Appearance Cloudy Urine pH 6.5 Ur Specific [place] 1.015 Urine Protein >=300 H Urine Glucose (UA) 250 H Urine Ketones 15 H Urine Blood Large H Urine Nitrate Positive H Urine Bilirubin Large H Urine Urobilinogen 2.0 H Ur Leukocyte Esterase Moderate H Urine RBC Tntc Urine WBC Tntc Urine Bacteria Large Blood Type Antibody Screen Crossmatch BBK History Checked 12/31/17 12/31/17 12/31/17 06:10 09:40 09:40 WBC RBC Hgb 7.2 L Hct 22.7 L MCV MCH MCHC RDW Plt Count MPV Sodium 141 Potassium 4.7 Chloride 112 H Carbon Dioxide 23 Anion Gap 10 BUN 29 H Creatinine 2.7 H Est GFR ( Amer) 27 Est GFR (Non-Af Amer) 22 Random Glucose 115 H Calcium 9.0 Total Bilirubin 0.7 AST 57 ALT 30 Alkaline Phosphatase 74 Total Protein 5.7 L Albumin 2.6 L Globulin 3.1 Albumin/Globulin Ratio 0.8 L Procalcitonin Urine Color Urine Appearance Urine pH Ur Specific [place] Urine Protein Urine Glucose (UA) Urine Ketones Urine Blood Urine Nitrate Urine Bilirubin Urine Urobilinogen Ur Leukocyte Esterase Urine RBC Urine WBC Urine Bacteria Blood Type O POSITIVE Antibody Screen Negative Crossmatch See Detail BBK History Checked Patient has bt Intake & Output: Intake & Output 12/30/17 12/31/17 12/31/17 18:59 06:59 18:59 Intake Total 1080 0 Balance 1080 0 Intake: Oral 1080 Blood Product 0 Red Blood Cells Cpd As1 0 Lr Unit [id number] Vital Signs: Vital Signs - 24 hr 12/30/17 12/30/17 12/30/17 20:13 21:00 22:00 Temperature 101.7 F H 101 F H 101 F H Pulse Rate 116 H Respiratory 16 Rate Blood Pressure 119/59 L O2 Sat by Pulse 93 L Oximetry 12/31/17 12/31/17 12/31/17 00:00 00:07 00:49 Temperature 103.1 F H 102.4 F H Pulse Rate 90 Respiratory Rate Blood Pressure O2 Sat by Pulse Oximetry 12/31/17 12/31/17 12/31/17 01:25 01:38 03:10 Temperature 102.9 F H 101.2 F H Pulse Rate 115 H Respiratory Rate Blood Pressure 112/59 L O2 Sat by Pulse Oximetry 12/31/17 12/31/17 12/31/17 03:55 04:02 05:15 Temperature 100.2 F H Pulse Rate 96 H 94 H Respiratory 30 H Rate Blood Pressure 98/47 L 112/54 L O2 Sat by Pulse 99 Oximetry 12/31/17 12/31/17 12/31/17 05:43 06:00 14:00 Temperature 98.9 F 98.9 F 98 F Pulse Rate 90 93 H Respiratory 18 20 Rate Blood Pressure 105/49 L 141/62 O2 Sat by Pulse 96 96 Oximetry 12/31/17 12/31/17 14:25 14:57 Temperature 98 F 98.1 F Pulse Rate 93 H 93 H Respiratory 20 20 Rate Blood Pressure 141/62 141/62 O2 Sat by Pulse Oximetry
--- NOTE | 2017-12-31 16:43 | CP.PCM.PN ---
<Billy Ray - Last Filed: 12/31/17 16:44> Subjective - Date & Time of Evaluation Date of Evaluation: 12/31/17 Time of Evaluation: 16:41 - Subjective Subjective: Jai Ray IM Resident - GI Progress Note Patient seen and examined this AM. Patient noted to have dark colored urine in the sol. No reports of bloody bowel movements or hematemesis. Patient is NPO for possible cystoscopy with urology. Objective - Vital Signs/Intake and Output Vital Signs (last 24 hours): Temp Pulse Resp BP Pulse Ox 98.1 F 93 H 20 141/62 96 12/31/17 14:57 12/31/17 14:57 12/31/17 14:57 12/31/17 14:57 12/31/17 14:00 Intake and Output: 12/31/17 12/31/17 06:59 18:59 Intake Total 0 Balance 0 - Medications Medications: Current Medications Acetaminophen (Tylenol 325mg Tab) 650 mg PO Q6H PRN PRN Reason: Fever >100.4 F Last Admin: 12/31/17 01:25 Dose: 650 mg Albuterol/Ipratropium (Duoneb 3 Mg/0.5 Mg (3 Ml) Ud) 3 ml IH [id number] PRN PRN Reason: Shortness of Breath Last Admin: 12/26/17 19:55 Dose: 3 ml Albuterol/Ipratropium (Duoneb 3 Mg/0.5 Mg (3 Ml) Ud) 3 ml IH [id number] [facility] Amlodipine Besylate (Norvasc) 10 mg PO DAILY [facility] Last Admin: 12/30/17 09:44 Dose: 10 mg Arformoterol Tartrate (Brovana) 15 mcg IH [id number] [facility] Last Admin: 12/31/17 08:06 Dose: 15 mcg Atorvastatin Calcium (Lipitor) 40 mg PO HS [facility] Last Admin: 12/30/17 22:02 Dose: 40 mg Budesonide (Pulmicort Respules) 0.5 mg IH [id number] [facility] Last Admin: 12/31/17 08:06 Dose: 0.5 mg Calcitriol (Rocaltrol) 0.5 mcg PO DAILY [facility] Last Admin: 12/31/17 09:46 Dose: Not Given Gabapentin (Neurontin) 300 mg PO BID [facility]; Protocol Last Admin: 12/31/17 10:54 Dose: Not Given Hydralazine HCl (Apresoline) 10 mg PO QID PRN PRN Reason: for SBP>160 Last Admin: 12/29/17 04:48 Dose: 10 mg Cefepime HCl (Maxipime 1gm) 1 gm in 100 mls @ 25 mls/hr IVPB Q24H [facility]; Protocol Stop: 01/06/18 14:31 Last Admin: 12/30/17 16:34 Dose: 25 mls/hr Linezolid (Zyvox 600mg/300ml D5w) 600 mg in 300 mls @ 200 mls/hr IVPB Q12 [facility]; Protocol Stop: 01/08/18 22:01 Last Admin: 12/30/17 22:02 Dose: 200 mls/hr Levothyroxine Sodium (Synthroid) 25 mcg PO 0600 [facility] Last Admin: 12/31/17 08:16 Dose: Not Given Memantine (Namenda) 10 mg PO DAILY [facility] Last Admin: 12/31/17 09:44 Dose: Not Given Montelukast Sodium (Singulair) 10 mg PO HS [facility] Last Admin: 12/30/17 22:02 Dose: 10 mg Nicotine (Nicoderm Cq) 1 patch TD DAILY [facility] Last Admin: 12/31/17 09:38 Dose: 1 patch Pantoprazole Sodium (Protonix Ec Tab) 20 mg PO 0600 [facility] Last Admin: 12/31/17 08:16 Dose: Not Given Tamsulosin HCl (Flomax) 0.4 mg PO DAILY [facility] Last Admin: 12/31/17 09:43 Dose: Not Given - Labs Labs: 12/31/17 09:40 12/31/17 06:10 PT 14.2 SECONDS (9.4-12.5) H 12/29/17 10:05 INR 1.23 12/29/17 10:05 APTT 29.6 Seconds (25.1-36.5) 12/29/17 10:05 - Constitutional Appears: No Acute Distress - Head Exam Head Exam: ATRAUMATIC, NORMOCEPHALIC - Eye Exam Eye Exam: EOMI, PERRL - ENT Exam ENT Exam: Mucous Membranes Moist - Neck Exam Neck Exam: Full ROM - Respiratory Exam Respiratory Exam: Clear to Ausculation Bilateral, NORMAL BREATHING PATTERN - Cardiovascular Exam Cardiovascular Exam: REGULAR RHYTHM, +S1, +S2 - GI/Abdominal Exam GI & Abdominal Exam: Soft. absent: Firm, Guarding, Rigid, Tenderness - Rectal Exam Rectal Exam: NORMAL INSPECTION. absent: Black Stool, Bloody Stool - Extremities Exam Extremities Exam: Pedal Edema (mild) - Neurological Exam Neurological Exam: Awake Neuro motor strength exam: Left Upper Extremity: 5, Right Upper Extremity: 5, Left Lower Extremity: 5, Right Lower Extremity: 5 - Psychiatric Exam Additional comments: dementia - Skin Skin Exam: Dry, Warm Assessment and Plan - Assessment and Plan (Free Text) Assessment: 87 year old male with past medical history of COPD, CHF s/p AICD, HTN, CAD s/p CABG, CKD stage IV, dementia, iron deficiency anemia, hx of gastritis, HLD with severe anemia. Plan: Anemia likely secondary to urethra trauma Acute blood loss anemia due to GI bleed. Acute on chronic kidney injury Demenita HTN HLD CHF s/p AICD (EF of 55%) - Anemia likely secondary to trauma to urethra, patient without blood on rectal exam - EGD 12/25/17 Shows gastric and duodenal bulb AVMs. Gastric AVM had active bleeding and was injected with epi and clipped, f/u Pathology - s/p 2 units pRBCs 12/25/17, patient recieving further pRBC transfusion for drop in H/H - Patient NPO at this time for possible cysto - Continue PPI - Abd/Pelvis with PO contrast: No obvious GI mass. - Monitor H/H with serial CBC, transfuse if symptomatic or hgb<7 - Avoid NSAIDs, blood thinners - Further recommendations per Dr. Murdock <Ramon Murdock V - Last Filed: 01/01/18 01:30> Objective - Vital Signs/Intake and Output Vital Signs (last 24 hours): Temp Pulse Resp BP Pulse Ox 99.9 F H 97 H 18 121/62 100 12/31/17 22:30 12/31/17 23:14 12/31/17 22:30 12/31/17 22:30 12/31/17 22:30 Intake and Output: 12/31/17 01/01/18 18:59 06:59 Intake Total 50 600 Output Total 401 Balance 50 199 - Medications Medications: Current Medications Acetaminophen (Tylenol 325mg Tab) 650 mg PO Q6H PRN PRN Reason: Fever >100.4 F Last Admin: 12/31/17 01:25 Dose: 650 mg Albuterol/Ipratropium (Duoneb 3 Mg/0.5 Mg (3 Ml) Ud) 3 ml IH [id number] PRN PRN Reason: Shortness of Breath Last Admin: 12/26/17 19:55 Dose: 3 ml Albuterol/Ipratropium (Duoneb 3 Mg/0.5 Mg (3 Ml) Ud) 3 ml IH [id number] [facility] Last Admin: 12/31/17 20:30 Dose: 3 ml Amlodipine Besylate (Norvasc) 10 mg PO DAILY [facility] Last Admin: 12/30/17 09:44 Dose: 10 mg Arformoterol Tartrate (Brovana) 15 mcg IH [id number] [facility] Last Admin: 12/31/17 20:30 Dose: 15 mcg Atorvastatin Calcium (Lipitor) 40 mg PO HS [facility] Last Admin: 12/31/17 21:44 Dose: 40 mg Budesonide (Pulmicort Respules) 0.5 mg IH [id number] [facility] Last Admin: 12/31/17 20:30 Dose: 0.5 mg Calcitriol (Rocaltrol) 0.5 mcg PO DAILY [facility] Last Admin: 12/31/17 09:46 Dose: Not Given Gabapentin (Neurontin) 300 mg PO BID [facility]; Protocol Last Admin: 12/31/17 18:03 Dose: 300 mg Hydralazine HCl (Apresoline) 10 mg PO QID PRN PRN Reason: for SBP>160 Last Admin: 12/29/17 04:48 Dose: 10 mg Cefepime HCl (Maxipime 1gm) 1 gm in 100 mls @ 25 mls/hr IVPB Q24H [facility]; Protocol Stop: 01/06/18 14:31 Last Admin: 12/31/17 18:45 Dose: 25 mls/hr Levothyroxine Sodium (Synthroid) 25 mcg PO 0600 [facility] Last Admin: 12/31/17 08:16 Dose: Not Given Memantine (Namenda) 10 mg PO DAILY [facility] Last Admin: 12/31/17 09:44 Dose: Not Given Montelukast Sodium (Singulair) 10 mg PO HS [facility] Last Admin: 12/31/17 21:44 Dose: 10 mg Nicotine (Nicoderm Cq) 1 patch TD DAILY [facility] Last Admin: 12/31/17 09:38 Dose: 1 patch Pantoprazole Sodium (Protonix Ec Tab) 20 mg PO 0600 [facility] Last Admin: 12/31/17 08:16 Dose: Not Given Tamsulosin HCl (Flomax) 0.4 mg PO DAILY [facility] Last Admin: 12/31/17 09:43 Dose: Not Given - Labs Labs: 12/31/17 09:40 12/31/17 06:10 PT 14.2 SECONDS (9.4-12.5) H 12/29/17 10:05 INR 1.23 12/29/17 10:05 APTT 29.6 Seconds (25.1-36.5) 12/29/17 10:05 Attending/Attestation - Attestation I have personally seen and examined this patient.: Yes I have fully participated in the care of the patient.: Yes I have reviewed all pertinent clinical information, including history, physical exam and plan: Yes Notes (Text): This is an addendum to GI followup report dictated by the Electrical Wiring Lineman. The patient was seen and evaluated earlier. Medical records, lab studies, imagings were reviewed. Last 24 hours events reviewed. Agreed with the above treatment plan as outlined in Electrical Wiring Lineman 's notes with the addition of the following This patient had a significant drop in blood count No obvious melena or BRPR Rectal examination no melena Patient did have fluid challenge yesterday for hypotension History of hematuria sp bicap treatment of AVMs Stomach, small bowl, colon sepsis on IV antibiotics as per ID Puree diet with assistance Followup Hb 01/01/18 01:27
[2017-12-31] MEDS: Cefepime 1gm in NS 100ml 1 GM/100 ML BAG IVPB SCH (18:45)
[2017-12-31] MEDS: Albuterol-Ipratrop 3 mg / 0.5 (3 ml) UD IH SCH (20:30)
--- NOTE | 2018-01-01 00:18 | PN ---
DATE: 12/31/2017 PULMONARY PROGRESS NOTE REFERRING PHYSICIAN: Irasema Rivas MD SUBJECTIVE: The patient is lying in the bed, head at 45 degrees, requiring upper extremity restraints, receiving blood transfusion. Urine is clearing up. No nausea. No vomiting, no diarrhea. No leg swelling. OBJECTIVE: GENERAL: In no acute distress. VITAL SIGNS: Temperature is 100, heart rate is 100, respiratory rate is 20, blood pressure 133/62, pulse ox 96% on nasal cannula. HEENT: Moist mucous membrane. Crowded airway. NECK: Supple. No JVD. LUNGS: Have fair airflow with rhonchi. HEART: S1, S2. ABDOMEN: Soft, nontender, no organomegaly. EXTREMITIES: No edema. NEUROLOGIC: Awake, alert and follows simple command. MEDICATIONS: He is on hydralazine 10 mg 4 times daily p.r.n., Brovana inhaled twice a day, albuterol/Atrovent nebulizer every 6 hours p.r.n., Flomax 0.4 mg daily, Lipitor 40 mg daily, cefepime 1 g every 24 hours, Namenda 10 mg daily, gabapentin 300 mg twice a day, Nicoderm patch daily, Norvasc 10 mg daily, Protonix 20 mg daily, Pulmicort inhaled twice a day, calcitriol 0.5 mg daily, Singulair 10 mg at bedtime, Synthroid 25 mcg daily, Tylenol p.r.n., Zyvox 600 mg twice a day. LABORATORY DATA: Shows hemoglobin 6.7, after transfusion is 7.2. Sodium 141, potassium 4.7, chloride 112, bicarbonate 23, BUN 29, creatinine 2.7, glucose 115, calcium is 9, AST 57, ALT 30, alk phos is 74. Albumin is 2.6. Microbiology, blood culture, 1 out of 2 has gram-positive cocci. Urine culture also have gram-positive cocci. IMPRESSION AND PLAN: Sepsis, probably genitourinary tract related, hematuria, anemia requiring transfusion, chronic obstructive lung disease, cardiomyopathy, pulmonary hypertension, cardiac diastolic dysfunction, coronary artery disease, hyperlipidemia, history of iron-deficiency anemia, history of gastric angiopathy. Spoke to nursing staff, scheduled for cystoscopy today. Continue bronchodilator. Keep head at 45 degrees. Antibiotics covering healthcare-associated organism. Gastric prophylaxis. Sequential compress devices to lower extremity, cannot give chemical prophylaxis because of active bleed. Followup labs in the morning. Thank you and we will follow with you. Radha Vail MD
--- NOTE | 2018-01-01 00:35 | PN ---
DATE: 12/31/2017 SUBJECTIVE: The patient is in bed, was seen in 563, bed 1. No fevers and no chills. PHYSICAL EXAMINATION: VITAL SIGNS: On exam, temperature is 99.9, earlier was 100.6 with a pulse rate of 101, blood pressure is 120/60. HEENT: Examination of HEENT is unremarkable. NECK: Supple. LUNGS: Have decreased breath sounds. HEART: Normal S1, S2. ABDOMEN: Soft. LABORATORY DATA: Laboratory examination reveals the blood cultures positive for staph aureus by PNA FISH and urine culture is gram-positive cocci. Nares, MRSA detected. Earlier urine cultures negative. Review of orders reveals the patient is on vancomycin and cefepime and Zyvox and vancomycin random dose is ordered for tomorrow. ASSESSMENT AND PLAN: An 87-year-old male with pacemaker, coronary bypass graft who was admitted with history of chronic obstructive lung disease, cardiomyopathy, hypertension, pulmonary hypertension, diastolic congestive heart failure, coronary artery disease, dementia, anemia with no fever and tachycardia, infiltrate and sepsis with healthcare-associated pneumonia and gram-positive cocci bacteremia identified as staph aureus, must rule out endocarditis. We will give another dose of vancomycin and vancomycin random level, check on the sensitivity, will need an echo, will need a transesophageal echo. Rule out pacemaker infection and/or endocarditis. We will make further recommendation. The patient's procalcitonin is 0.06. We will follow closely with you. The patient had a colonoscopy on 12/28/2017 with cauterization. Blood cultures that were done reported to be positive from yesterday and is reported to be Staphylococcus aureus by PNA FISH. Thor Fairbanks MD
[2018-01-01] MEDS: Albuterol-Ipratrop 3 mg / 0.5 (3 ml) UD IH SCH ×4 (02:20→19:49)
--- NOTE | 2018-01-01 04:30 | PN ---
DATE: 12/31/2017 SUBJECTIVE: The patient is an 87-year-old male. Patient was seen and examined at the bedside on 12/31/2017. Little bit lethargic. No fever, no chills. No nausea, vomiting or diarrhea. The patient got 1 unit of blood after that he has fever, before that ID consult called, started antibiotics. He has upper extremity restraints on the right. He was pulling all his IV lines especially pulling Mann catheter. PHYSICAL EXAMINATION VITAL SIGNS: Temperature is 100, heart rate 100, respiratory rate 20 and blood pressure 130/60 and pulse oximetry 96% on nasal cannula. HEENT: Head: Normocephalic, atraumatic. Eyes: PERRLA. Extraocular muscles intact. Conjunctivae clear. Nose patent. Mucous membrane moist. NECK: Supple. No carotid bruit. No JVD or thyromegaly. CHEST: Bilaterally symmetrical. HEART: S1 and S2 positive. LUNGS: Clear to auscultation. ABDOMEN: Soft. Bowel sounds present. No organomegaly. EXTREMITIES: No edema. No cyanosis. NEUROLOGIC: Patient is awake and alert. Moving all four extremities. No focal deficits, but he is confused. MEDICATIONS: Hydralazine, Brovana, albuterol, Flomax, Lipitor, gabapentin, Nicoderm patch, Norvasc, Singulair, Synthroid, Tylenol and Zyvox. LABORATORY DATA: Hemoglobin 6.7 after blood transfusion is 7.2. Sodium 141, potassium 4.7, BUN 29, creatinine 2.7, glucose 115. ASSESSMENT AND PLAN: Faraz Noble is an 87-year-old male with multiple medical problems sepsis, probably genitourinary tract related, hematuria, anemia requiring blood transfusion, chronic obstructive lung disease, cardiomyopathy, pulmonary hypertension, cardiac diastolic dysfunction, coronary artery disease, hypercholesterolemia, history of iron-deficiency anemia. Length of time discussion done with patient and nursing staff. We will try to reach patient's family from my office, from the computer and the hospital paper ,whatever number we will probably tried, but could not reach the family. Gastrointestinal and deep venous thrombosis prophylaxes. Repeat labs. We will follow up. Irasema Rivas MD MTDD
--- NOTE | 2018-01-01 06:53 | CP.PCM.PN ---
<Billy Ray - Last Filed: 01/01/18 16:00> Subjective - Date & Time of Evaluation Date of Evaluation: 01/01/18 Time of Evaluation: 06:50 - Subjective Subjective: Jai Cory PGY2 - GI Progress Note Patient seen adn evaluated this AM. No acute events reported overnight. Patient did not go fro cysto last HS. Patient reports he feels much better today. No reports of bloody bm. Objective - Vital Signs/Intake and Output Vital Signs (last 24 hours): Temp Pulse Resp BP Pulse Ox 99.9 F H 97 H 18 121/62 100 12/31/17 22:30 12/31/17 23:14 12/31/17 22:30 12/31/17 22:30 12/31/17 22:30 Intake and Output: 12/31/17 01/01/18 18:59 06:59 Intake Total 50 1200 Output Total 951 Balance 50 249 - Medications Medications: Current Medications Acetaminophen (Tylenol 325mg Tab) 650 mg PO Q6H PRN PRN Reason: Fever >100.4 F Last Admin: 12/31/17 01:25 Dose: 650 mg Albuterol/Ipratropium (Duoneb 3 Mg/0.5 Mg (3 Ml) Ud) 3 ml IH [id number] PRN PRN Reason: Shortness of Breath Last Admin: 12/26/17 19:55 Dose: 3 ml Albuterol/Ipratropium (Duoneb 3 Mg/0.5 Mg (3 Ml) Ud) 3 ml IH [id number] [facility] Last Admin: 01/01/18 02:20 Dose: 3 ml Amlodipine Besylate (Norvasc) 10 mg PO DAILY [facility] Last Admin: 12/30/17 09:44 Dose: 10 mg Arformoterol Tartrate (Brovana) 15 mcg IH [id number] [facility] Last Admin: 12/31/17 20:30 Dose: 15 mcg Atorvastatin Calcium (Lipitor) 40 mg PO HS [facility] Last Admin: 12/31/17 21:44 Dose: 40 mg Budesonide (Pulmicort Respules) 0.5 mg IH [id number] [facility] Last Admin: 12/31/17 20:30 Dose: 0.5 mg Calcitriol (Rocaltrol) 0.5 mcg PO DAILY [facility] Last Admin: 12/31/17 09:46 Dose: Not Given Gabapentin (Neurontin) 300 mg PO BID [facility]; Protocol Last Admin: 12/31/17 18:03 Dose: 300 mg Hydralazine HCl (Apresoline) 10 mg PO QID PRN PRN Reason: for SBP>160 Last Admin: 12/29/17 04:48 Dose: 10 mg Cefepime HCl (Maxipime 1gm) 1 gm in 100 mls @ 25 mls/hr IVPB Q24H [facility]; Protocol Stop: 01/06/18 14:31 Last Admin: 12/31/17 18:45 Dose: 25 mls/hr Levothyroxine Sodium (Synthroid) 25 mcg PO 0600 [facility] Last Admin: 12/31/17 08:16 Dose: Not Given Memantine (Namenda) 10 mg PO DAILY [facility] Last Admin: 12/31/17 09:44 Dose: Not Given Montelukast Sodium (Singulair) 10 mg PO HS [facility] Last Admin: 12/31/17 21:44 Dose: 10 mg Nicotine (Nicoderm Cq) 1 patch TD DAILY [facility] Last Admin: 12/31/17 09:38 Dose: 1 patch Pantoprazole Sodium (Protonix Ec Tab) 20 mg PO 0600 [facility] Last Admin: 12/31/17 08:16 Dose: Not Given Tamsulosin HCl (Flomax) 0.4 mg PO DAILY [facility] Last Admin: 12/31/17 09:43 Dose: Not Given - Labs Labs: 12/31/17 09:40 12/31/17 06:10 PT 14.2 SECONDS (9.4-12.5) H 12/29/17 10:05 INR 1.23 12/29/17 10:05 APTT 29.6 Seconds (25.1-36.5) 12/29/17 10:05 - Constitutional Appears: No Acute Distress - Head Exam Head Exam: ATRAUMATIC, NORMOCEPHALIC - Eye Exam Eye Exam: EOMI, PERRL - ENT Exam ENT Exam: Mucous Membranes Moist - Neck Exam Neck Exam: Full ROM - Respiratory Exam Respiratory Exam: Clear to Ausculation Bilateral, NORMAL BREATHING PATTERN. absent: Rales, Wheezes - Cardiovascular Exam Cardiovascular Exam: REGULAR RHYTHM, +S1, +S2 - GI/Abdominal Exam GI & Abdominal Exam: Soft, Normal Bowel Sounds. absent: Firm, Guarding, Rigid, Tenderness - Neurological Exam Neurological Exam: Alert, Awake Additional comments: Patient with restraints in place secondary to pulling, Neuo exam limited Motor and sensory grossly intact - Psychiatric Exam Additional comments: baseline dementia, conversational, no agitation noted - Skin Skin Exam: Dry, Warm Assessment and Plan - Assessment and Plan (Free Text) Assessment: 87 year old male with past medical history of COPD, CHF s/p AICD, HTN, CAD s/p CABG, CKD stage IV, dementia, iron deficiency anemia, hx of gastritis, HLD with severe anemia. Patient s/p colonoscopy and EGD showing multiple AVM. Plan: Anemia likely secondary to urethra trauma Acute blood loss anemia due to GI bleed. Acute on chronic kidney injury Demenita HTN HLD CHF s/p AICD (EF of 55%) - Anemia likely secondary to trauma to urethra, patient without blood on rectal exam --Urology consulted and following patient, no cystoscopy yesterday, possibly today - EGD 12/25/17 Shows gastric and duodenal bulb AVMs. Gastric AVM had active bleeding and was injected with epi and clipped, f/u Pathology - s/p 2 units pRBCs 12/25/17, patient recieving further pRBC transfusion for drop in H/H - Patient NPO at this time for possible cysto - Continue PPI - Abd/Pelvis with PO contrast: No obvious GI mass. - Monitor H/H with serial CBC, transfuse if symptomatic or hgb<7 - Avoid NSAIDs, blood thinners - Further recommendations per Dr. Murdock <Ramon Murdock V - Last Filed: 01/01/18 20:12> Objective - Vital Signs/Intake and Output Vital Signs (last 24 hours): Temp Pulse Resp BP Pulse Ox 97.7 F 72 18 127/60 100 01/01/18 18:31 01/01/18 18:31 01/01/18 18:31 01/01/18 18:31 01/01/18 06:00 Intake and Output: 01/01/18 01/02/18 18:59 06:59 Intake Total 50 Output Total 25 Balance 25 - Medications Medications: Current Medications Acetaminophen (Tylenol 325mg Tab) 650 mg PO Q6H PRN PRN Reason: Fever >100.4 F Last Admin: 12/31/17 01:25 Dose: 650 mg Albuterol/Ipratropium (Duoneb 3 Mg/0.5 Mg (3 Ml) Ud) 3 ml IH [id number] PRN PRN Reason: Shortness of Breath Last Admin: 12/26/17 19:55 Dose: 3 ml Albuterol/Ipratropium (Duoneb 3 Mg/0.5 Mg (3 Ml) Ud) 3 ml IH [id number] [facility] Last Admin: 01/01/18 19:49 Dose: 3 ml Arformoterol Tartrate (Brovana) 15 mcg IH [id number] [facility] Last Admin: 01/01/18 19:49 Dose: 15 mcg Aspirin (Ecotrin) 81 mg PO DAILY [facility] Last Admin: 01/01/18 12:06 Dose: 81 mg Atorvastatin Calcium (Lipitor) 40 mg PO HS [facility] Last Admin: 12/31/17 21:44 Dose: 40 mg Budesonide (Pulmicort Respules) 0.5 mg IH [id number] [facility] Last Admin: 01/01/18 19:49 Dose: 0.5 mg Calcitriol (Rocaltrol) 0.5 mcg PO DAILY [facility] Last Admin: 01/01/18 10:20 Dose: 0.5 mcg Gabapentin (Neurontin) 300 mg PO BID [facility]; Protocol Last Admin: 01/01/18 18:38 Dose: 300 mg Hydralazine HCl (Apresoline) 10 mg PO QID PRN PRN Reason: for SBP>160 Last Admin: 12/29/17 04:48 Dose: 10 mg Cefepime HCl (Maxipime 1gm) 1 gm in 100 mls @ 25 mls/hr IVPB Q24H [facility]; Protocol Stop: 01/06/18 14:31 Last Admin: 01/01/18 15:28 Dose: 25 mls/hr Daptomycin 500 mg/ Sodium (Chloride) 100 mls @ 200 mls/hr IV Q48H [facility] Stop: 01/06/18 10:16 Last Admin: 01/01/18 11:58 Dose: 200 mls/hr Levothyroxine Sodium (Synthroid) 25 mcg PO 0600 [facility] Last Admin: 01/01/18 06:58 Dose: 25 mcg Memantine (Namenda) 10 mg PO DAILY [facility] Last Admin: 01/01/18 10:20 Dose: 10 mg Metoprolol Tartrate (Lopressor) 12.5 mg PO BID [facility] Last Admin: 01/01/18 17:39 Dose: 12.5 mg Montelukast Sodium (Singulair) 10 mg PO HS [facility] Last Admin: 12/31/17 21:44 Dose: 10 mg Nicotine (Nicoderm Cq) 1 patch TD DAILY [facility] Last Admin: 01/01/18 10:20 Dose: 1 patch Nitroglycerin (Nitro-Bid 2% Oint) 0.5 ea TOP Q6H [facility] Last Admin: 01/01/18 17:39 Dose: 0.5 ea Pantoprazole Sodium (Protonix Ec Tab) 20 mg PO 0600 [facility] Last Admin: 01/01/18 06:58 Dose: 20 mg Tamsulosin HCl (Flomax) 0.4 mg PO DAILY [facility] Last Admin: 01/01/18 10:20 Dose: 0.4 mg - Labs Labs: 01/01/18 07:30 01/01/18 07:30 PT 14.2 SECONDS (9.4-12.5) H 12/29/17 10:05 INR 1.23 12/29/17 10:05 APTT 29.6 Seconds (25.1-36.5) 12/29/17 10:05 Attending/Attestation - Attestation I have personally seen and examined this patient.: Yes I have fully participated in the care of the patient.: Yes I have reviewed all pertinent clinical information, including history, physical exam and plan: Yes Notes (Text): This is an addendum to GI followup report dictated by the Atm Technician. The patient was seen and evaluated earlier. Medical records, lab studies, imagings were reviewed. Last 24 hours events reviewed. Agreed with the above treatment plan as outlined in Atm Technician 's notes with the addition of the following No obvious BRPR or melena Tolerating puree diet Hematuria sp bicap treatment of multiple gastric duodenum and colonic AVMs Followup Hb and transfuse Continue PPI Continue antibiotics as per ID 01/01/18 20:08
[2018-01-01] MEDS: Pantoprazole 20 mg EC Tab PO SCH (06:58)
[2018-01-01] MEDS: Levothyroxine 25 MCG TAB PO SCH (06:58)
--- NOTE | 2018-01-01 06:58 | CP.PCM.PN ---
Subjective - Date & Time of Evaluation Date of Evaluation: 01/01/18 Time of Evaluation: 06:20 - Subjective Subjective: No distress, lying in bed,awake Reason for consultation and follow up: Cardiac evaluation for elevated BNP, rule out congestive heart failure Seen and examined by me and Dr. Woodward Objective - Vital Signs/Intake and Output Vital Signs (last 24 hours): Temp Pulse Resp BP Pulse Ox 99.9 F H 97 H 18 121/62 100 12/31/17 22:30 12/31/17 23:14 12/31/17 22:30 12/31/17 22:30 12/31/17 22:30 Intake and Output: 12/31/17 01/01/18 18:59 06:59 Intake Total 50 1200 Output Total 951 Balance 50 249 - Medications Medications: Current Medications Acetaminophen (Tylenol 325mg Tab) 650 mg PO Q6H PRN PRN Reason: Fever >100.4 F Last Admin: 12/31/17 01:25 Dose: 650 mg Albuterol/Ipratropium (Duoneb 3 Mg/0.5 Mg (3 Ml) Ud) 3 ml IH [id number] PRN PRN Reason: Shortness of Breath Last Admin: 12/26/17 19:55 Dose: 3 ml Albuterol/Ipratropium (Duoneb 3 Mg/0.5 Mg (3 Ml) Ud) 3 ml IH [id number] [facility] Last Admin: 01/01/18 02:20 Dose: 3 ml Amlodipine Besylate (Norvasc) 10 mg PO DAILY [facility] Last Admin: 12/30/17 09:44 Dose: 10 mg Arformoterol Tartrate (Brovana) 15 mcg IH [id number] [facility] Last Admin: 12/31/17 20:30 Dose: 15 mcg Atorvastatin Calcium (Lipitor) 40 mg PO HS [facility] Last Admin: 12/31/17 21:44 Dose: 40 mg Budesonide (Pulmicort Respules) 0.5 mg IH [id number] [facility] Last Admin: 12/31/17 20:30 Dose: 0.5 mg Calcitriol (Rocaltrol) 0.5 mcg PO DAILY [facility] Last Admin: 12/31/17 09:46 Dose: Not Given Gabapentin (Neurontin) 300 mg PO BID [facility]; Protocol Last Admin: 12/31/17 18:03 Dose: 300 mg Hydralazine HCl (Apresoline) 10 mg PO QID PRN PRN Reason: for SBP>160 Last Admin: 12/29/17 04:48 Dose: 10 mg Cefepime HCl (Maxipime 1gm) 1 gm in 100 mls @ 25 mls/hr IVPB Q24H [facility]; Protocol Stop: 01/06/18 14:31 Last Admin: 12/31/17 18:45 Dose: 25 mls/hr Levothyroxine Sodium (Synthroid) 25 mcg PO 0600 [facility] Last Admin: 12/31/17 08:16 Dose: Not Given Memantine (Namenda) 10 mg PO DAILY [facility] Last Admin: 12/31/17 09:44 Dose: Not Given Montelukast Sodium (Singulair) 10 mg PO HS [facility] Last Admin: 12/31/17 21:44 Dose: 10 mg Nicotine (Nicoderm Cq) 1 patch TD DAILY [facility] Last Admin: 12/31/17 09:38 Dose: 1 patch Pantoprazole Sodium (Protonix Ec Tab) 20 mg PO 0600 [facility] Last Admin: 12/31/17 08:16 Dose: Not Given Tamsulosin HCl (Flomax) 0.4 mg PO DAILY [facility] Last Admin: 12/31/17 09:43 Dose: Not Given - Labs Labs: 12/31/17 09:40 12/31/17 06:10 PT 14.2 SECONDS (9.4-12.5) H 12/29/17 10:05 INR 1.23 12/29/17 10:05 APTT 29.6 Seconds (25.1-36.5) 12/29/17 10:05 - Constitutional Appears: Non-toxic, No Acute Distress - Head Exam Head Exam: NORMAL INSPECTION, NORMOCEPHALIC - Eye Exam Eye Exam: Normal appearance Pupil Exam: NORMAL ACCOMODATION - ENT Exam ENT Exam: Mucous Membranes Moist - Neck Exam Neck Exam: Full ROM - Respiratory Exam Respiratory Exam: Decreased Breath Sounds, Clear to Ausculation Bilateral, NORMAL BREATHING PATTERN - GI/Abdominal Exam GI & Abdominal Exam: Soft, Normal Bowel Sounds - Exam Additional comments: sol catheter - Extremities Exam Additional comments: no edema - Neurological Exam Neurological Exam: Alert, Awake - Psychiatric Exam Psychiatric exam: Normal Affect, Normal Mood - Skin Skin Exam: Normal Color, Warm Assessment and Plan - Assessment and Plan (Free Text) Assessment: An 87 year old male who was brought in from [facility] due to low hemoglobin.History of COPD,chronic diastolic CHF, hypertension, hyperlipidemia, dementia,anemia, coronary artery disease post CABG,cardiomyopathy, LVEF from ECHO 20%, AICD. Admitted for acute renal injury, severe anemia. Blood transfusion of 2 units PRBC given.On iron infusion.Repeat H/H stable. Confuse, GI work up. Had EGD with clipping and biopsy , active bleeding with multiple duodenal arteriovenous malformations, gastric arteriovenous malformations as Dieulafoy lesion.2 units PRBC given for low H/H. Confuse, pulled out IV and sol catheter.was on soft wrist restraints.today off restraints. Plan: Post transfusion of 2 units PRBC yesterday, awaiting repeat H/H Awake,no distress Heart rate stable Blood pressure controlled Cardiac status stable Seen by Urology, possible cystoscopy On Norvasc 10 mg daily,Lipitor 40 mg daily, Hydralazine iV PRN, Synthroid 25 mcg daily,Flomax 0.4 mg daily, Nicoderm patch daily. Continue current treatment Continue current medications Fall precaution Aspiration precaution Chart reviewed Will follow up Plan and treatment discussed with Dr. Woodward
[2018-01-01] MEDS: Arformoterol 15 mcg/2 ml Inh Sol IH SCH ×2 (07:25→19:49)
[2018-01-01] MEDS: Budesonide 0.5 mg/2 ml Inhal Susp UD IH SCH ×2 (07:25→19:49)
--- NOTE | 2018-01-01 07:31 | CP.PCM.PN ---
<Isa Stark - Last Filed: 01/01/18 10:53> Subjective - Date & Time of Evaluation Date of Evaluation: 01/01/18 Time of Evaluation: 07:30 - Subjective Subjective: PGY-3 Nephrology Progress Note for Dr. Andrade Patient seen and examined at bedside. Patient is resting comfortably in bed. Overnight patient received 1 unit pRBC and developed low fever. Mann was inserted. Objective - Vital Signs/Intake and Output Vital Signs (last 24 hours): Temp Pulse Resp BP Pulse Ox 99.9 F H 97 H 18 121/62 100 12/31/17 22:30 12/31/17 23:14 12/31/17 22:30 12/31/17 22:30 12/31/17 22:30 Intake and Output: 01/01/18 01/01/18 06:59 18:59 Intake Total 1200 Output Total 951 Balance 249 - Medications Medications: Current Medications Acetaminophen (Tylenol 325mg Tab) 650 mg PO Q6H PRN PRN Reason: Fever >100.4 F Last Admin: 12/31/17 01:25 Dose: 650 mg Albuterol/Ipratropium (Duoneb 3 Mg/0.5 Mg (3 Ml) Ud) 3 ml IH [id number] PRN PRN Reason: Shortness of Breath Last Admin: 12/26/17 19:55 Dose: 3 ml Albuterol/Ipratropium (Duoneb 3 Mg/0.5 Mg (3 Ml) Ud) 3 ml IH [id number] [facility] Last Admin: 01/01/18 02:20 Dose: 3 ml Amlodipine Besylate (Norvasc) 10 mg PO DAILY [facility] Last Admin: 12/30/17 09:44 Dose: 10 mg Arformoterol Tartrate (Brovana) 15 mcg IH [id number] [facility] Last Admin: 12/31/17 20:30 Dose: 15 mcg Atorvastatin Calcium (Lipitor) 40 mg PO HS [facility] Last Admin: 12/31/17 21:44 Dose: 40 mg Budesonide (Pulmicort Respules) 0.5 mg IH [id number] [facility] Last Admin: 12/31/17 20:30 Dose: 0.5 mg Calcitriol (Rocaltrol) 0.5 mcg PO DAILY [facility] Last Admin: 12/31/17 09:46 Dose: Not Given Gabapentin (Neurontin) 300 mg PO BID [facility]; Protocol Last Admin: 12/31/17 18:03 Dose: 300 mg Hydralazine HCl (Apresoline) 10 mg PO QID PRN PRN Reason: for SBP>160 Last Admin: 12/29/17 04:48 Dose: 10 mg Cefepime HCl (Maxipime 1gm) 1 gm in 100 mls @ 25 mls/hr IVPB Q24H [facility]; Protocol Stop: 01/06/18 14:31 Last Admin: 12/31/17 18:45 Dose: 25 mls/hr Levothyroxine Sodium (Synthroid) 25 mcg PO 0600 [facility] Last Admin: 01/01/18 06:58 Dose: 25 mcg Memantine (Namenda) 10 mg PO DAILY [facility] Last Admin: 12/31/17 09:44 Dose: Not Given Montelukast Sodium (Singulair) 10 mg PO HS [facility] Last Admin: 12/31/17 21:44 Dose: 10 mg Nicotine (Nicoderm Cq) 1 patch TD DAILY [facility] Last Admin: 12/31/17 09:38 Dose: 1 patch Pantoprazole Sodium (Protonix Ec Tab) 20 mg PO 0600 [facility] Last Admin: 01/01/18 06:58 Dose: 20 mg Tamsulosin HCl (Flomax) 0.4 mg PO DAILY [facility] Last Admin: 12/31/17 09:43 Dose: Not Given - Labs Labs: 12/31/17 09:40 12/31/17 06:10 PT 14.2 SECONDS (9.4-12.5) H 12/29/17 10:05 INR 1.23 12/29/17 10:05 APTT 29.6 Seconds (25.1-36.5) 12/29/17 10:05 - Additional Findings Additional findings: Mann in place with kelsi urine - Constitutional Appears: No Acute Distress - Head Exam Head Exam: ATRAUMATIC, NORMAL INSPECTION, NORMOCEPHALIC - Eye Exam Eye Exam: EOMI, Normal appearance. absent: Conjunctival injection, Periorbital swelling, Scleral icterus - ENT Exam ENT Exam: Mucous Membranes Moist, Normal External Ear Exam. absent: Mucous Membranes Dry - Neck Exam Neck Exam: Normal Inspection. absent: Meningismus, Tenderness - Respiratory Exam Respiratory Exam: Clear to Ausculation Bilateral, NORMAL BREATHING PATTERN. absent: Accessory Muscle Use, Chest Wall Tenderness, Decreased Breath Sounds, Rales, Respiratory Distress - Cardiovascular Exam Cardiovascular Exam: REGULAR RHYTHM. absent: Bradycardia, Tachycardia, Murmur - GI/Abdominal Exam GI & Abdominal Exam: Soft, Normal Bowel Sounds. absent: Distended, Firm, Guarding, Rigid, Tenderness - Extremities Exam Extremities Exam: Normal Inspection. absent: Calf Tenderness, Joint Swelling, Pedal Edema, Tenderness - Neurological Exam Neurological Exam: Alert, Awake, CN II-XII Intact. absent: Oriented x3 - Psychiatric Exam Psychiatric exam: Normal Affect, Normal Mood. 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 No plan for renal replacement at this time. Patient had fevers over the past few days and a temp of 100.6 overnight. blood culture and urine cultures were positive for gram positive cocci. Creatinine has decreased since yesterday. continue calcitriol for secondary hyperp arathyriodism. Patient received 2 dose of Venofer for iron deficiency and a total 5 units prbc for blood loss. BP improved from yesterday after IVF and transfusion, will continue to hold amlodipine due to hypotension. ID following for fevers and bactremia. GI following for blood loss and AVM. Will continue to monitor kidney function and electrolytes. Continue to monitor I&O. Patient is on gentle hydration for hypovolemia. Case discussed and reviewed with Dr. Andrade. <Spencer Andrade - Last Filed: 01/01/18 17:40> Objective - Vital Signs/Intake and Output Vital Signs (last 24 hours): Temp Pulse Resp BP Pulse Ox 98.1 F 69 24 105/56 L 100 01/01/18 15:09 01/01/18 15:09 01/01/18 15:09 01/01/18 15:28 01/01/18 06:00 Intake and Output: 01/01/18 01/01/18 06:59 18:59 Intake Total 1200 50 Output Total 951 25 Balance 249 25 - Medications Medications: Current Medications Acetaminophen (Tylenol 325mg Tab) 650 mg PO Q6H PRN PRN Reason: Fever >100.4 F Last Admin: 12/31/17 01:25 Dose: 650 mg Albuterol/Ipratropium (Duoneb 3 Mg/0.5 Mg (3 Ml) Ud) 3 ml IH [id number] PRN PRN Reason: Shortness of Breath Last Admin: 12/26/17 19:55 Dose: 3 ml Albuterol/Ipratropium (Duoneb 3 Mg/0.5 Mg (3 Ml) Ud) 3 ml IH [id number] [facility] Last Admin: 01/01/18 07:25 Dose: 3 ml Arformoterol Tartrate (Brovana) 15 mcg IH [id number] [facility] Last Admin: 01/01/18 07:25 Dose: 15 mcg Aspirin (Ecotrin) 81 mg PO DAILY [facility] Last Admin: 01/01/18 12:06 Dose: 81 mg Atorvastatin Calcium (Lipitor) 40 mg PO HS [facility] Last Admin: 12/31/17 21:44 Dose: 40 mg Budesonide (Pulmicort Respules) 0.5 mg IH [id number] [facility] Last Admin: 01/01/18 07:25 Dose: 0.5 mg Calcitriol (Rocaltrol) 0.5 mcg PO DAILY [facility] Last Admin: 01/01/18 10:20 Dose: 0.5 mcg Gabapentin (Neurontin) 300 mg PO BID [facility]; Protocol Last Admin: 01/01/18 10:20 Dose: 300 mg Hydralazine HCl (Apresoline) 10 mg PO QID PRN PRN Reason: for SBP>160 Last Admin: 12/29/17 04:48 Dose: 10 mg Cefepime HCl (Maxipime 1gm) 1 gm in 100 mls @ 25 mls/hr IVPB Q24H [facility]; Protocol Stop: 01/06/18 14:31 Last Admin: 01/01/18 15:28 Dose: 25 mls/hr Daptomycin 500 mg/ Sodium (Chloride) 100 mls @ 200 mls/hr IV Q48H [facility] Stop: 01/06/18 10:16 Last Admin: 01/01/18 11:58 Dose: 200 mls/hr Iron Sucrose 200 mg/ Sodium (Chloride) 110 mls @ 110 mls/hr IVPB ONCE ONE Stop: 01/01/18 17:57 Levothyroxine Sodium (Synthroid) 25 mcg PO 0600 [facility] Last Admin: 01/01/18 06:58 Dose: 25 mcg Memantine (Namenda) 10 mg PO DAILY [facility] Last Admin: 01/01/18 10:20 Dose: 10 mg Metoprolol Tartrate (Lopressor) 12.5 mg PO BID [facility] Last Admin: 01/01/18 12:06 Dose: 12.5 mg Montelukast Sodium (Singulair) 10 mg PO HS [facility] Last Admin: 12/31/17 21:44 Dose: 10 mg Nicotine (Nicoderm Cq) 1 patch TD DAILY [facility] Last Admin: 01/01/18 10:20 Dose: 1 patch Nitroglycerin (Nitro-Bid 2% Oint) 0.5 ea TOP Q6H [facility] Last Admin: 01/01/18 12:06 Dose: 0.5 ea Pantoprazole Sodium (Protonix Ec Tab) 20 mg PO 0600 [facility] Last Admin: 01/01/18 06:58 Dose: 20 mg Tamsulosin HCl (Flomax) 0.4 mg PO DAILY [facility] Last Admin: 01/01/18 10:20 Dose: 0.4 mg - Labs Labs: 01/01/18 07:30 01/01/18 07:30 PT 14.2 SECONDS (9.4-12.5) H 12/29/17 10:05 INR 1.23 12/29/17 10:05 APTT 29.6 Seconds (25.1-36.5) 12/29/17 10:05 Assessment and Plan - Assessment and Plan (Free Text) Assessment: Pt seen and examined. I have reviewed the note of the medical physicist and agree with it. I have discussed the and plan with the resident. I have reviewed the patient's labs and medications. Pt with UZAIR and will need to continue to follow Cr. Pt has received 5units of PRBCs. Pt is on calitriol for secondary hyperparathyroidism. BP is stable.
[2018-01-01 07:56] LABS: HEMOGLOBIN 7.7 g/dL (14.0-18.0); MEAN CORPUSCULAR HEMOGLOBIN 27.1 pg (25.0-35.0); MEAN CORPUSCULAR HGB CONC 30.8 g/dl (31.0-37.0); MEAN PLATELET VOLUME 10.4 fl (7.0-11.0); RBC 2.84 10^6/uL (3.5-6.1); RED CELL DISTRIBUTION WIDTH 19.3 % (11.5-14.5)
[2018-01-01 08:04] LABS: ALB/GLOB RATIO 0.8 (1.1-1.8); ALBUMIN 2.6 g/dL (3.0-4.8); CALCIUM 9.3 mg/dL (8.4-10.5)
--- NOTE | 2018-01-01 08:43 | PN ---
DATE: 12/31/2017 This note is an addition to the nurse practitioner's note of this morning. Cardiac evaluation, elevated BNP, congestive heart failure, history of AICD, who was admitted with altered mental status and bleed from the . The patient got two units of blood. The patient is status post packed RBC, status post stable. Today, hemoglobin is 7.2. We will monitor H and H. If it continue to drop, consider packed RBC transfusion. We will administer two more units of blood because of the drop in H and H. We will follow with you. We will also give 40 of Lasix in between the transfusion. Thank you, Dr. Rivas, for providing us the opportunity in taking care of the patientYogesh. Radha Woodward MD
[2018-01-01 08:55] LABS: IRON 18 ug/dL (45-180)
[2018-01-01 09:05] LABS: % IRON SATURATION 8 % (20-55); TOTAL IRON BINDING CAPACITY 211 ug/dL (261-462)
[2018-01-01] MEDS ORDERED: DAPTOmycin 500 mg Inj (Cubicin) IV SCH (10:00)
[2018-01-01] MEDS ORDERED: DAPTOmycin 500 MG in Sodium Chloride 0.9% 100 ML IV SCH (10:15)
[2018-01-01 10:43] LABS: CK MB% 2.6 % (2.5-3.0)
[2018-01-01] MEDS ORDERED: DiphenhydrAMINE 50 mg/ml Inj IVP ONE (11:51)
[2018-01-01] MEDS: DAPTOmycin 500 MG in Sodium Chloride 0.9% 100 ML IV SCH (11:58)
[2018-01-01] MEDS: Nitroglycerin 2% Ointment Foilpak UD TOP SCH ×3 (12:06→22:09)
[2018-01-01] MEDS: Cefepime 1gm in NS 100ml 1 GM/100 ML BAG IVPB SCH (15:28)
--- NOTE | 2018-01-01 15:52 | CARD ---
APPROVED REPORT Date of service: 01/01/2018 EKG Measurement Heart [id number] <Conclusion> Normal sinus rhythm Possible Left atrial enlargement Right bundle branch block Left anterior fascicular block Bifascicular block Left ventricular hypertrophy with repolarization abnormality Abnormal ECG
--- NOTE | 2018-01-01 15:53 | PN ---
DATE: 01/01/2018 REASON FOR CONSULT: Cardiac evaluation, preop clearance. Today, apparently, the patient complained of chest pain. Troponin was then found to be 9. The patient denies any chest pain now. Yesterday, hemoglobin was low. We transfused 1 unit of paced RBC. Today, hemoglobin after transfusion 7.7. This note is an addition to dictated by our nurse practitioner. Today, the blood workup shows creatinine 2.6, BUN 42 with creatinine clearance 22 mL, stage 4 CKD disease, severe anemia. The patient has underlying comorbidity and currently the patient has no chest pain. EKG shows same normal sinus, right bundle-branch block, left anterior hemiblock. No change from before. In view of above renal insufficiency, mentally probably demented, asymptomatic, severe anemia, bleed. We will treat medically. We will start baby aspirin 81 mg daily, nitroglycerin paste half an inch and beta gina. Because of overall the patient's condition and comorbidity, we will just treat medically. Also, we will not proceed for ANDRE. We will treat it medically because of high risk of perforation of the esophagus. We will discontinue amlodipine and put low dose of beta gina, nitrates and aspirin. Treated conservatively. Not a candidate for Lovenox because hemoglobin is low and the patient is bleeding per urethra. We will follow with you. Will also get 1 unit of packed RBC and Lasix 40 post transfusion. Keep hemoglobin around 10. Thank you, Dr. Rivas for providing us the opportunity in taking care of the patient, Faraz Zuñiga. Radha Woodward MD
--- NOTE | 2018-01-01 15:56 | PN ---
DATE: 01/01/2018 SUBJECTIVE: The patient is seen in room 563, bed 1 this morning. The patient is more awake and alert and responsive and did have low-grade fevers and had fevers last night. He has mild shortness of breath. No abdominal pain. PHYSICAL EXAMINATION: VITAL SIGNS: Temperature is 99.9, T-max of 100.6 with a heart rate of 101, blood pressure is 119/56, respiratory rate of 18. HEENT: Examination of HEENT is unremarkable. NECK: Supple. LUNGS: Have decreased breath sounds. HEART: Normal S1, S2. ABDOMEN: Soft, nontender. LABORATORY EXAMINATION: Reveals the patient's creatinine is at 2.6 and the patient's white count is 15,000, hemoglobin of 7, platelets of 147. Coagulation is noted. Creatinine is noted. The patient's troponin from this morning is 9 and a procalcitonin from the 12/30/2017 is 0.06. Urinalysis is noted and microbiology reveals all blood cultures are positive, 12/30/2017 two bottles and 12/31/2017 two bottles from [facility] from 12/30/2017 is identified as staph aureus. ASSESSMENT AND PLAN: An 87-year-old male was seen earlier this morning with a history of coronary artery disease, coronary bypass graft, has a pacemaker, chronic obstructive lung disease, cardiomyopathy, hypertension, pulmonary hypertension and diastolic congestive heart failure and dementia who has now fevers and infiltrate and positive blood cultures, tachycardia. 1. Sepsis with staph aureus bacteremia, source is unclear, must rule out endocarditis and/or pacemaker infection and also with healthcare-associated pneumonia. Currently, we will start the patient on daptomycin and continue the Maxipime at this time pending sensitivity of staph aureus. We will repeat an echocardiogram. We will need a transesophageal echocardiography, rule out endocarditis in a patient with [id number] myocardial infarction and the patient's vancomycin level of random 15.7 is noted from this morning. We will continue with daptomycin and cefepime pending sensitivity of staph aureus in the blood and repeat blood cultures, repeat an echo and overall prognosis is quite poor. Thor Fairbanks MD [facility] # [id number]
--- NOTE | 2018-01-01 17:04 | CARD ---
APPROVED REPORT Date of service: 01/01/2018 EXAM: Two-dimensional and M-mode echocardiogram with Doppler and color Doppler. INDICATION Infection:Rule out subacute bacterial endocarditis 2D DIMENSIONS Left Atrium (2D)5.1 (1.6-4.0cm)IVSd1.6 (0.7-1.1cm) LVDd5.9 (3.9-5.9cm)PWd1.6 (0.7-1.1cm) M-Mode DIMENSIONS Aortic Root3.70 (2.2-3.7cm)Aortic Cusp Exc.1.60 (1.5-2.0cm) Aortic Valve AoV Peak Grqxkrrv955.0cm/Claudette Peak GR.10mmHg Mitral Valve MV E Jwdnnjur189.0cm/sMV A Uousipcz88.3cm/sE/A ratio1.5 TDI Lateral E' Peak V4.39cm/sMedial E' Peak V5.36cm/sE/Lateral E'33.0 E/Medial E'27.1 Pulmonary Valve PV Peak Ywzotkja73.6cm/sPV Peak Grad.3mmHg Tricuspid Valve TR Peak Ncdueauh245oo/sRAP XOZJJZUS33txMkFY Peak Gr.57mmHg [id number] LEFT VENTRICLE The Left Ventricle is borderline dilated. There is mild concentric left ventricular hypertrophy. The systolic function is moderately impaired. Lateral wall hypokinesis Transmitral Doppler flow pattern is Grade II-pseudonormal filling dynamics. No left ventricle thrombus noted on this study. RIGHT VENTRICLE The right ventricle is normal size. There is normal right ventricular wall thickness. The right ventricular systolic function is normal. ATRIA The left atrium is moderately dilated. The right atrium is moderately dilated. AORTIC VALVE The aortic valve is severely thickened. No aortic regurgitation is present. There is no aortic valvular stenosis. MITRAL VALVE The mitral valve is mildly thickened. Mitral regurgitation is moderate. There is no mitral valve stenosis. TRICUSPID VALVE The tricuspid valve is normal in structure. There is moderate tricuspid regurgitation. There is moderate to severe pulmonary hypertension. PULMONIC VALVE The pulmonary valve is normal in structure. There is mild pulmonic valvular regurgitation. GREAT VESSELS The aortic root is normal in size. The IVC is normal in size and collapses >50% with inspiration. <Conclusion> The Left Ventricle is borderline dilated. There is mild concentric left ventricular hypertrophy. The systolic function is moderately impaired. Lateral wall hypokinesis Transmitral Doppler flow pattern is Grade II-pseudonormal filling dynamics. Mitral regurgitation is moderate. There is moderate tricuspid regurgitation. There is moderate to severe pulmonary hypertension. No vegitation seen
[2018-01-01 20:09] LABS: HEMOGLOBIN 8.9 g/dL (14.0-18.0); MEAN CELL VOLUME 88.9 fl (80.0-105.0); MEAN CORPUSCULAR HEMOGLOBIN 27.6 pg (25.0-35.0); MEAN PLATELET VOLUME 9.9 fl (7.0-11.0); RBC 3.23 10^6/uL (3.5-6.1); RED CELL DISTRIBUTION WIDTH 18.9 % (11.5-14.5)
--- NOTE | 2018-01-01 23:51 | PN ---
DATE: 01/01/2018 SUBJECTIVE: Patient is 87-year-old male. Patient was seen and examined at the bedside in the telemetry, was having his dinner. He was hungry, he finished all his dinner. Overnight patient received 1 unit of packed RBC, then he developed low-grade fever. We hold the blood transfusion, Mann catheter was inserted, ID consult called, antibiotics started and today he got another units of packed RBC and iron infusion. No fever. No chills. No headache. No dizziness. Patient is a very poor historian. PHYSICAL EXAMINATION: VITAL SIGNS: Temperature 99.9, pulse 97, respiratory rate 18, blood pressure 120/62, pulse oximetry 100. HEENT: Head normocephalic, atraumatic. Eyes; PERRLA. Extraocular muscles intact. Conjunctivae clear. Nose patent. Mucous membrane moist. NECK: Supple. No carotid bruit. No JVD or thyromegaly. CHEST: Bilaterally symmetrical. HEART: S1 and S2 positive. LUNGS: Clear to auscultation. ABDOMEN: Soft. Bowel sounds positive. No organomegaly. EXTREMITIES: No edema, no cyanosis. NEUROLOGIC: The patient is awake and alert. Moving all 4 extremities. No focal deficits. MEDICATIONS: Tylenol, DuoNeb, Norvasc, Brovana, Lipitor, Pulmicort, Calcitriol, Neurontin, hydralazine, cefepime, levothyroxine, Namenda, Singulair, Nicoderm, Protonix, Flomax. LABORATORY DATA: Hemoglobin 7.2, hematocrit 22.7. Sodium 141, potassium 4.7, BUN 29, creatinine 2.7, glucose 115, chloride 112. ASSESSMENT AND PLAN: Mr. Faraz Zuñiga is an 87-year-old male with anemia, multiple times blood transfusion and iron infusion, got one packed RBC last night and got one today; acute kidney injury on chronic kidney disease stage IV, improving slowly; severe leukocytosis secondary to bacteremia; acute on chronic anemia; bleeding AVM lesions, injected and clipped by Dr. Murdock; gastritis; hematuria; secondary hyperparathyroidism; hypovolemia; iron deficiency; hyperkalemia, improved; essential hypertension; dementia. No plan for renal replacement as per Nephrology. Patient has fever over the past few days and temperature of 100.6 overnight. Blood and urine cultures were positive for gram positive cocci. Creatinine has decreased since yesterday. Continue calcitriol secondary to hyperparathyroidism. Patient was given couple of units of Venofer for iron deficiency and total 5 units of packed RBC for blood loss. Blood pressure has improved after intravenous fluid and transfusion. Continue holding the amlodipine due to hypotension. ID is on the case for bacteremia. Gastrointestinal for arteriovenous malformations and gastritis. Patient has gentle hydration for hypovolemia. I know one of the patient's daughter, tried to contact her from patient's chart in my office. We called all numbers, there is no response. Then, hospital nurse practitioner was trying to call the family and I told nurses that if family will come to see the patient, let me know but up to now we do not have any family visit, then today I called [facility] where patient was getting subacute rehab and according to [facility], they informed patient's daughter, Carol and Rosalva before transferring patient to [facility]. I got both daughters' number. Carol Zuñiga, phone #[phone]. I left the message with the Carol Zuñiga to call me back or stop in my office tomorrow. Then I called patient's another daughter Rosalva #[phone] to make sure that they knows their fathers condition. Somebody pickup the pone and disconnected me. I will still continue calling family because we are putting Mann catheter, but he is pulling even we are doing soft restrain and his hemoglobin is dropping back and forth and getting blood transfusions. I want family to know about his condition. Meanwhile continue present treatment and ID and all consultants are on the case. Irasema Rivas MD
--- NOTE | 2018-01-02 00:49 | PN ---
DATE: 01/01/2018 PULMONARY PROGRESS NOTE REFERRING PHYSICIAN: Irasema Rivas MD. SUBJECTIVE: He is lying in the bed, head at 45 degrees. Received second unit of blood today, also receiving IV iron. No more gross hematuria. Supposed to have a cysto, which had been canceled. No nausea, no vomiting, no diarrhea, no leg pain. OBJECTIVE: GENERAL: In no acute distress. VITAL SIGNS: Temperature is 98, heart rate 72, respiratory rate is 18, blood pressure 127/60, pulse ox is 100% on nasal cannula. HEENT: Moist mucous membrane. Crowded airway. NECK: Supple. No JVD. LUNGS: Have a few scattered rhonchi. HEART: S1 and S2. ABDOMEN: Soft, nontender. No organomegaly. EXTREMITIES: There is no edema. GENITOURINARY: Has a Mann catheter with clear urine. MEDICATIONS: He is on hydralazine 10 mg four times a day p.r.n., Brovana inhaled twice a day, daptomycin 500 mg every 48 hours, DuoNeb every 4 hours p.r.n. also every 6 hours [id number], Ecotrin 81 mg daily, Flomax 0.4 mg daily, Lipitor 40 mg daily, metoprolol tartrate 12.5 mg twice a day, cefepime is at 1 g every 24 hours, Namenda is at 10 mg daily, gabapentin 300 mg twice a day, nicotine patch daily, nitroglycerin every 6 hours, Protonix 20 mg daily, Pulmicort inhaled twice a day, Calcitriol 0.5 mg daily, Singulair 10 mg daily, Synthroid 25 mcg daily, Tylenol p.r.n. basis. LABORATORY DATA: Shows hemoglobin 8.9, just after second unit of transfusion today; hematocrit 28.7; WBC 11,000; platelet is 133. Sodium 140, potassium 4.8, chloride 113, bicarbonate 22, BUN 42, creatinine 2.6, glucose 98, calcium is 9.3, iron is 18, AST 60, ALT 30, alk phos is 74. Troponin highest was 9.01 this morning. Microbiology: Blood culture has gram-positive cocci. 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 Had echocardiogram done today, which shows right ventricular systolic pressure is 67, left ventricular concentric hypertrophy, systolic function is moderately impaired, severe pulmonary hypertension. IMPRESSION AND PLAN: Sepsis, has a bacteremia, probably genitourinary origin, status post hematuria with traumatic injury by pulling off the catheter, requiring 2 units of packed RBCs and also requiring IV iron, has a chronic obstructive lung disease, cardiomyopathy with systolic and diastolic dysfunction and pulmonary hypertension, coronary artery disease, hyperlipidemia, history of gastric angiopathy. Case discussed with the nursing staff. Pulmonary point of view, keep head at 45 degrees. Bronchodilator. Keep close for heart failure. Gastric prophylaxis. Sequential compression device to lower extremity. He is off chemical deep venous thrombosis prophylaxis because of active bleed and anemia. Fall precaution. Seen by Cardiology today because of positive cardiac enzymes. Follow up labs in the morning. Thank you and we will follow with you. Radha Vail MD
[2018-01-02] MEDS: Albuterol-Ipratrop 3 mg / 0.5 (3 ml) UD IH SCH ×4 (01:40→19:22)
--- NOTE | 2018-01-02 02:13 | CP.PCM.PN ---
Addendum entered and electronically signed by Manny Murillo DO 01/02/18 05:10: On physical exam, lungs clear to auscultation, RRR + S1S2, abdomen nondistended and nontender. No leg swelling. No diaphoresis, nausea. Patient responds appropriately to questions through BiPAP. Original Note: <Manny Murillo - Last Filed: 01/02/18 02:11> Subjective - Date & Time of Evaluation Date of Evaluation: 01/02/18 Time of Evaluation: 01:50 - Subjective Subjective: Manny Murillo PGY-1 Progress Note for Hospitalist Service Patient seen at bedside after 5 beats of v-tach was noted on tele monitor. Pat ient was sleeping at time and was easily awoken. Patient hemodynamically stable. Patient denies chest pain, palpitations, dizziness and headaches. Patient currently saturating well on BiPAP. Will continue to monitor patient clinical status. Objective - Vital Signs/Intake and Output Vital Signs (last 24 hours): Temp Pulse Resp BP Pulse Ox 97.7 F 82 18 127/60 100 01/01/18 18:31 01/02/18 01:04 01/01/18 18:31 01/01/18 18:31 01/01/18 06:00 Intake and Output: 01/01/18 01/02/18 18:59 06:59 Intake Total 50 Output Total 25 Balance 25 - Medications Medications: Current Medications Acetaminophen (Tylenol 325mg Tab) 650 mg PO Q6H PRN PRN Reason: Fever >100.4 F Last Admin: 12/31/17 01:25 Dose: 650 mg Albuterol/Ipratropium (Duoneb 3 Mg/0.5 Mg (3 Ml) Ud) 3 ml IH [id number] PRN PRN Reason: Shortness of Breath Last Admin: 12/26/17 19:55 Dose: 3 ml Albuterol/Ipratropium (Duoneb 3 Mg/0.5 Mg (3 Ml) Ud) 3 ml IH [id number] [facility] Last Admin: 01/02/18 01:40 Dose: 3 ml Arformoterol Tartrate (Brovana) 15 mcg IH [id number] [facility] Last Admin: 01/01/18 19:49 Dose: 15 mcg Aspirin (Ecotrin) 81 mg PO DAILY [facility] Last Admin: 01/01/18 12:06 Dose: 81 mg Atorvastatin Calcium (Lipitor) 40 mg PO HS [facility] Last Admin: 01/01/18 22:04 Dose: 40 mg Budesonide (Pulmicort Respules) 0.5 mg IH [id number] [facility] Last Admin: 01/01/18 19:49 Dose: 0.5 mg Calcitriol (Rocaltrol) 0.5 mcg PO DAILY [facility] Last Admin: 01/01/18 10:20 Dose: 0.5 mcg Gabapentin (Neurontin) 300 mg PO BID [facility]; Protocol Last Admin: 01/01/18 18:38 Dose: 300 mg Hydralazine HCl (Apresoline) 10 mg PO QID PRN PRN Reason: for SBP>160 Last Admin: 12/29/17 04:48 Dose: 10 mg Cefepime HCl (Maxipime 1gm) 1 gm in 100 mls @ 25 mls/hr IVPB Q24H [facility]; Protocol Stop: 01/06/18 14:31 Last Admin: 01/01/18 15:28 Dose: 25 mls/hr Daptomycin 500 mg/ Sodium (Chloride) 100 mls @ 200 mls/hr IV Q48H [facility] Stop: 01/06/18 10:16 Last Admin: 01/01/18 11:58 Dose: 200 mls/hr Levothyroxine Sodium (Synthroid) 25 mcg PO 0600 [facility] Last Admin: 01/01/18 06:58 Dose: 25 mcg Memantine (Namenda) 10 mg PO DAILY [facility] Last Admin: 01/01/18 10:20 Dose: 10 mg Metoprolol Tartrate (Lopressor) 12.5 mg PO BID [facility] Last Admin: 01/01/18 17:39 Dose: 12.5 mg Montelukast Sodium (Singulair) 10 mg PO HS [facility] Last Admin: 01/01/18 22:04 Dose: 10 mg Nicotine (Nicoderm Cq) 1 patch TD DAILY [facility] Last Admin: 01/01/18 10:20 Dose: 1 patch Nitroglycerin (Nitro-Bid 2% Oint) 0.5 ea TOP Q6H [facility] Last Admin: 01/01/18 22:09 Dose: 0.5 ea Pantoprazole Sodium (Protonix Ec Tab) 20 mg PO 0600 [facility] Last Admin: 01/01/18 06:58 Dose: 20 mg Tamsulosin HCl (Flomax) 0.4 mg PO DAILY [facility] Last Admin: 01/01/18 10:20 Dose: 0.4 mg - Labs Labs: 01/01/18 20:00 01/01/18 07:30 PT 14.2 SECONDS (9.4-12.5) H 12/29/17 10:05 INR 1.23 12/29/17 10:05 APTT 29.6 Seconds (25.1-36.5) 12/29/17 10:05 <María Flores - Last Filed: 01/02/18 10:03> Objective - Vital Signs/Intake and Output Vital Signs (last 24 hours): Temp Pulse Resp BP Pulse Ox 98.0 F 78 20 127/56 L 96 01/02/18 06:00 01/02/18 06:00 01/02/18 06:00 01/02/18 06:00 01/02/18 06:00 Intake and Output: 01/02/18 01/02/18 06:59 18:59 Intake Total 120 Output Total 400 Balance -280 - Medications Medications: Current Medications Acetaminophen (Tylenol 325mg Tab) 650 mg PO Q6H PRN PRN Reason: Fever >100.4 F Last Admin: 12/31/17 01:25 Dose: 650 mg Albuterol/Ipratropium (Duoneb 3 Mg/0.5 Mg (3 Ml) Ud) 3 ml IH [id number] PRN PRN Reason: Shortness of Breath Last Admin: 12/26/17 19:55 Dose: 3 ml Albuterol/Ipratropium (Duoneb 3 Mg/0.5 Mg (3 Ml) Ud) 3 ml IH [id number] [facility] Last Admin: 01/02/18 07:20 Dose: 3 ml Arformoterol Tartrate (Brovana) 15 mcg IH [id number] [facility] Last Admin: 01/02/18 07:20 Dose: 15 mcg Aspirin (Ecotrin) 81 mg PO DAILY [facility] Last Admin: 01/01/18 12:06 Dose: 81 mg Atorvastatin Calcium (Lipitor) 40 mg PO HS [facility] Last Admin: 01/01/18 22:04 Dose: 40 mg Budesonide (Pulmicort Respules) 0.5 mg IH [id number] [facility] Last Admin: 01/02/18 07:20 Dose: 0.5 mg Calcitriol (Rocaltrol) 0.5 mcg PO DAILY [facility] Last Admin: 01/01/18 10:20 Dose: 0.5 mcg Gabapentin (Neurontin) 300 mg PO BID [facility]; Protocol Last Admin: 01/01/18 18:38 Dose: 300 mg Hydralazine HCl (Apresoline) 10 mg PO QID PRN PRN Reason: for SBP>160 Last Admin: 12/29/17 04:48 Dose: 10 mg Cefepime HCl (Maxipime 1gm) 1 gm in 100 mls @ 25 mls/hr IVPB Q24H [facility]; Protocol Stop: 01/06/18 14:31 Last Admin: 01/01/18 15:28 Dose: 25 mls/hr Daptomycin 500 mg/ Sodium (Chloride) 100 mls @ 200 mls/hr IV Q48H [facility] Stop: 01/06/18 10:16 Last Admin: 01/01/18 11:58 Dose: 200 mls/hr Isosorbide Mononitrate (Imdur Er) 30 mg PO DAILY [facility] Levothyroxine Sodium (Synthroid) 25 mcg PO 0600 [facility] Last Admin: 01/02/18 05:55 Dose: 25 mcg Memantine (Namenda) 10 mg PO DAILY [facility] Last Admin: 01/01/18 10:20 Dose: 10 mg Metoprolol Tartrate (Lopressor) 12.5 mg PO BID [facility] Last Admin: 01/01/18 17:39 Dose: 12.5 mg Montelukast Sodium (Singulair) 10 mg PO HS [facility] Last Admin: 01/01/18 22:04 Dose: 10 mg Nicotine (Nicoderm Cq) 1 patch TD DAILY [facility] Last Admin: 01/01/18 10:20 Dose: 1 patch Pantoprazole Sodium (Protonix Ec Tab) 20 mg PO 0600 [facility] Last Admin: 01/02/18 05:55 Dose: 20 mg Tamsulosin HCl (Flomax) 0.4 mg PO DAILY [facility] Last Admin: 01/01/18 10:20 Dose: 0.4 mg - Labs Labs: 01/02/18 03:40 01/02/18 03:40 PT 14.2 SECONDS (9.4-12.5) H 12/29/17 10:05 INR 1.23 12/29/17 10:05 APTT 29.6 Seconds (25.1-36.5) 12/29/17 10:05 Attending/Attestation - Attestation I have personally seen and examined this patient.: Yes I have fully participated in the care of the patient.: Yes I have reviewed all pertinent clinical information, including history, physical exam and plan: Yes Notes (Text): 01/02/18 10:01 Imp:pt had a run of Vtach Agree with documentation. 01/02/18 10:03
[2018-01-02 04:19] LABS: CALCIUM 9.4 mg/dL (8.4-10.5)
[2018-01-02 04:40] LABS: HEMOGLOBIN 8.6 g/dL (14.0-18.0); MEAN CELL VOLUME 88.7 fl (80.0-105.0); MEAN CORPUSCULAR HGB CONC 30.5 g/dl (31.0-37.0); MEAN PLATELET VOLUME 10.8 fl (7.0-11.0); RBC 3.18 10^6/uL (3.5-6.1); RED CELL DISTRIBUTION WIDTH 18.9 % (11.5-14.5); WHITE BLOOD COUNT 9.3 10^3/ul (4.5-11.0)
[2018-01-02] MEDS: Pantoprazole 20 mg EC Tab PO SCH (05:55)
[2018-01-02] MEDS: Levothyroxine 25 MCG TAB PO SCH (05:55)
[2018-01-02] MEDS: Nitroglycerin 2% Ointment Foilpak UD TOP SCH (05:55)
[2018-01-02] MEDS: Arformoterol 15 mcg/2 ml Inh Sol IH SCH ×2 (07:20→19:22)
[2018-01-02] MEDS: Budesonide 0.5 mg/2 ml Inhal Susp UD IH SCH ×2 (07:20→19:22)
--- NOTE | 2018-01-02 07:36 | CP.PCM.PN ---
<Isa Stark - Last Filed: 01/02/18 12:26> Subjective - Date & Time of Evaluation Date of Evaluation: 01/02/18 Time of Evaluation: 07:00 - Subjective Subjective: PGY-3 Nephrology Progress Note for Dr. Andrade Patient seen and examined at bedside. Patient is resting comfortably in bed. Nurse reports no acute events over night. Patient denies headache, chest pain, sob, abd pain. Mann in place with blood tinged urine. Objective - Vital Signs/Intake and Output Vital Signs (last 24 hours): Temp Pulse Resp BP Pulse Ox 98.0 F 78 20 127/56 L 96 01/02/18 06:00 01/02/18 06:00 01/02/18 06:00 01/02/18 06:00 01/02/18 06:00 Intake and Output: 01/02/18 01/02/18 06:59 18:59 Intake Total 120 Output Total 400 Balance -280 - Medications Medications: Current Medications Acetaminophen (Tylenol 325mg Tab) 650 mg PO Q6H PRN PRN Reason: Fever >100.4 F Last Admin: 12/31/17 01:25 Dose: 650 mg Albuterol/Ipratropium (Duoneb 3 Mg/0.5 Mg (3 Ml) Ud) 3 ml IH [id number] PRN PRN Reason: Shortness of Breath Last Admin: 12/26/17 19:55 Dose: 3 ml Albuterol/Ipratropium (Duoneb 3 Mg/0.5 Mg (3 Ml) Ud) 3 ml IH [id number] [facility] Last Admin: 01/02/18 01:40 Dose: 3 ml Arformoterol Tartrate (Brovana) 15 mcg IH [id number] [facility] Last Admin: 01/01/18 19:49 Dose: 15 mcg Aspirin (Ecotrin) 81 mg PO DAILY [facility] Last Admin: 01/01/18 12:06 Dose: 81 mg Atorvastatin Calcium (Lipitor) 40 mg PO HS [facility] Last Admin: 01/01/18 22:04 Dose: 40 mg Budesonide (Pulmicort Respules) 0.5 mg IH [id number] [facility] Last Admin: 01/01/18 19:49 Dose: 0.5 mg Calcitriol (Rocaltrol) 0.5 mcg PO DAILY [facility] Last Admin: 01/01/18 10:20 Dose: 0.5 mcg Gabapentin (Neurontin) 300 mg PO BID [facility]; Protocol Last Admin: 01/01/18 18:38 Dose: 300 mg Hydralazine HCl (Apresoline) 10 mg PO QID PRN PRN Reason: for SBP>160 Last Admin: 12/29/17 04:48 Dose: 10 mg Cefepime HCl (Maxipime 1gm) 1 gm in 100 mls @ 25 mls/hr IVPB Q24H [facility]; Protocol Stop: 01/06/18 14:31 Last Admin: 01/01/18 15:28 Dose: 25 mls/hr Daptomycin 500 mg/ Sodium (Chloride) 100 mls @ 200 mls/hr IV Q48H [facility] Stop: 01/06/18 10:16 Last Admin: 01/01/18 11:58 Dose: 200 mls/hr Levothyroxine Sodium (Synthroid) 25 mcg PO 0600 [facility] Last Admin: 01/02/18 05:55 Dose: 25 mcg Memantine (Namenda) 10 mg PO DAILY [facility] Last Admin: 01/01/18 10:20 Dose: 10 mg Metoprolol Tartrate (Lopressor) 12.5 mg PO BID [facility] Last Admin: 01/01/18 17:39 Dose: 12.5 mg Montelukast Sodium (Singulair) 10 mg PO HS [facility] Last Admin: 01/01/18 22:04 Dose: 10 mg Nicotine (Nicoderm Cq) 1 patch TD DAILY [facility] Last Admin: 01/01/18 10:20 Dose: 1 patch Nitroglycerin (Nitro-Bid 2% Oint) 0.5 ea TOP Q6H [facility] Last Admin: 01/02/18 05:55 Dose: 0.5 ea Pantoprazole Sodium (Protonix Ec Tab) 20 mg PO 0600 [facility] Last Admin: 01/02/18 05:55 Dose: 20 mg Tamsulosin HCl (Flomax) 0.4 mg PO DAILY [facility] Last Admin: 01/01/18 10:20 Dose: 0.4 mg - Labs Labs: 01/02/18 03:40 01/02/18 03:40 PT 14.2 SECONDS (9.4-12.5) H 12/29/17 10:05 INR 1.23 12/29/17 10:05 APTT 29.6 Seconds (25.1-36.5) 12/29/17 10:05 - Additional Findings Additional findings: Mann in place - Constitutional Appears: No Acute Distress - Head Exam Head Exam: ATRAUMATIC, NORMAL INSPECTION, NORMOCEPHALIC - Eye Exam Eye Exam: EOMI, Normal appearance. absent: Conjunctival injection, Periorbital swelling, Scleral icterus - ENT Exam ENT Exam: Mucous Membranes Moist, Normal External Ear Exam. absent: Mucous Membranes Dry - Neck Exam Neck Exam: Normal Inspection. absent: Meningismus, Tenderness - Respiratory Exam Respiratory Exam: Clear to Ausculation Bilateral, NORMAL BREATHING PATTERN. absent: Accessory Muscle Use, Chest Wall Tenderness, Decreased Breath Sounds, Rales, Respiratory Distress - Cardiovascular Exam Cardiovascular Exam: REGULAR RHYTHM. absent: Bradycardia, Tachycardia, Murmur - GI/Abdominal Exam GI & Abdominal Exam: Soft, Normal Bowel Sounds. absent: Distended, Firm, Guarding, Rigid, Tenderness - Extremities Exam Extremities Exam: Normal Inspection. absent: Calf Tenderness, Joint Swelling, Pedal Edema, Tenderness - Neurological Exam Neurological Exam: Alert, Awake, CN II-XII Intact. absent: Oriented x3 - Psychiatric Exam Psychiatric exam: Normal Affect, Normal Mood. absent: Agitated, Anxious - Skin Skin Exam: Dry, Intact, Normal Color, Warm Assessment and Plan - Assessment and Plan (Free Text) Assessment: UZAIR on CKD stage IV fever with leukocytosis secondary to s. 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 No plan for renal replacement at this time. blood culture positive for s. aureus. Creatinine stable. continue calcitriol for secondary hyperparathyriodism. Patient received 2 dose of Venofer for iron deficiency and a total 5 units prbc for blood loss. BP stable off, currently on lopressor per cardiology. ID following for fevers and bactremia. GI following for blood loss and AVM. Will continue to monitor kidney function and elec trolytes. Continue to monitor I&O. Case discussed and reviewed with Dr. Andrade. <Spencer Andrade - Last Filed: 01/02/18 21:06> Objective - Vital Signs/Intake and Output Vital Signs (last 24 hours): Temp Pulse Resp BP Pulse Ox 98.3 F 86 20 130/60 96 01/02/18 17:57 01/02/18 18:47 01/02/18 17:57 01/02/18 17:57 01/02/18 06:00 Intake and Output: 01/02/18 01/03/18 18:59 06:59 Intake Total 1040 Output Total 300 Balance 740 - Medications Medications: Current Medications Acetaminophen (Tylenol 325mg Tab) 650 mg PO Q6H PRN PRN Reason: Fever >100.4 F Last Admin: 12/31/17 01:25 Dose: 650 mg Albuterol/Ipratropium (Duoneb 3 Mg/0.5 Mg (3 Ml) Ud) 3 ml IH [id number] PRN PRN Reason: Shortness of Breath Last Admin: 12/26/17 19:55 Dose: 3 ml Albuterol/Ipratropium (Duoneb 3 Mg/0.5 Mg (3 Ml) Ud) 3 ml IH [id number] [facility] Last Admin: 01/02/18 19:22 Dose: 3 ml Arformoterol Tartrate (Brovana) 15 mcg IH [id number] [facility] Last Admin: 01/02/18 19:22 Dose: 15 mcg Aspirin (Ecotrin) 81 mg PO DAILY [facility] Last Admin: 01/02/18 10:08 Dose: 81 mg Atorvastatin Calcium (Lipitor) 40 mg PO HS [facility] Last Admin: 01/01/18 22:04 Dose: 40 mg Budesonide (Pulmicort Respules) 0.5 mg IH [id number] [facility] Last Admin: 01/02/18 19:22 Dose: 0.5 mg Calcitriol (Rocaltrol) 0.5 mcg PO DAILY [facility] Last Admin: 01/02/18 10:08 Dose: 0.5 mcg Gabapentin (Neurontin) 300 mg PO BID [facility]; Protocol Last Admin: 01/02/18 17:26 Dose: 300 mg Hydralazine HCl (Apresoline) 10 mg PO QID PRN PRN Reason: for SBP>160 Last Admin: 12/29/17 04:48 Dose: 10 mg Cefepime HCl (Maxipime 1gm) 1 gm in 100 mls @ 25 mls/hr IVPB Q24H [facility]; Protocol Stop: 01/06/18 14:31 Last Admin: 01/02/18 15:39 Dose: 25 mls/hr Daptomycin 500 mg/ Sodium (Chloride) 100 mls @ 200 mls/hr IV Q48H [facility] Stop: 01/06/18 10:16 Last Admin: 01/01/18 11:58 Dose: 200 mls/hr Iron Sucrose 100 mg/ Sodium (Chloride) 105 mls @ 210 mls/hr IVPB DAILY [facility] Stop: 01/04/18 10:29 Last Admin: 01/02/18 12:22 Dose: 210 mls/hr Isosorbide Mononitrate (Imdur Er) 30 mg PO DAILY [facility] Last Admin: 01/02/18 10:08 Dose: 30 mg Levothyroxine Sodium (Synthroid) 25 mcg PO 0600 [facility] Last Admin: 01/02/18 05:55 Dose: 25 mcg Memantine (Namenda) 10 mg PO DAILY [facility] Last Admin: 01/02/18 10:08 Dose: 10 mg Metoprolol Tartrate (Lopressor) 12.5 mg PO BID [facility] Last Admin: 01/02/18 17:26 Dose: 12.5 mg Montelukast Sodium (Singulair) 10 mg PO HS [facility] Last Admin: 01/01/18 22:04 Dose: 10 mg Nicotine (Nicoderm Cq) 1 patch TD DAILY [facility] Last Admin: 01/02/18 10:07 Dose: 1 patch Pantoprazole Sodium (Protonix Ec Tab) 20 mg PO 0600 [facility] Last Admin: 01/02/18 05:55 Dose: 20 mg Tamsulosin HCl (Flomax) 0.4 mg PO DAILY [facility] Last Admin: 01/02/18 10:08 Dose: 0.4 mg - Labs Labs: 01/02/18 03:40 01/02/18 03:40 PT 14.2 SECONDS (9.4-12.5) H 12/29/17 10:05 INR 1.23 12/29/17 10:05 APTT 29.6 Seconds (25.1-36.5) 12/29/17 10:05 Assessment and Plan - Assessment and Plan (Free Text) Assessment: Pt seen and examined. I have reviewed the note of the dental assistant medical assistant and agree with it. I have discussed the assessment and plan with the resident. I have reviewed the patient's labs and medications. Pt with UZAIR that is now stable. Hb was low and that has improved. Pt is on Calcitriol for secondary hyperparathyroidism. Pt was given Venofer for iron def. Continue to follow Cr.
--- NOTE | 2018-01-02 09:46 | CP.PCM.PN ---
<Billy Ray - Last Filed: 01/03/18 06:59> Subjective - Date & Time of Evaluation Date of Evaluation: 01/02/18 Time of Evaluation: 09:44 - Subjective Subjective: Lynda Ray PGy2 - GI Progress Note Patient seen and examined this AM. He appears to have some confusion during questioning. He declines abdominal pain, chest pain, difficulties breathing. No reports of bloody bowel movements reported. Patient with short episode of asymptomatic Vtach overnight. Objective - Vital Signs/Intake and Output Vital Signs (last 24 hours): Temp Pulse Resp BP Pulse Ox 98.0 F 78 20 127/56 L 96 01/02/18 06:00 01/02/18 06:00 01/02/18 06:00 01/02/18 06:00 01/02/18 06:00 Intake and Output: 01/02/18 01/02/18 06:59 18:59 Intake Total 120 Output Total 400 Balance -280 - Medications Medications: Current Medications Acetaminophen (Tylenol 325mg Tab) 650 mg PO Q6H PRN PRN Reason: Fever >100.4 F Last Admin: 12/31/17 01:25 Dose: 650 mg Albuterol/Ipratropium (Duoneb 3 Mg/0.5 Mg (3 Ml) Ud) 3 ml IH [id number] PRN PRN Reason: Shortness of Breath Last Admin: 12/26/17 19:55 Dose: 3 ml Albuterol/Ipratropium (Duoneb 3 Mg/0.5 Mg (3 Ml) Ud) 3 ml IH [id number] [facility] Last Admin: 01/02/18 07:20 Dose: 3 ml Arformoterol Tartrate (Brovana) 15 mcg IH [id number] [facility] Last Admin: 01/02/18 07:20 Dose: 15 mcg Aspirin (Ecotrin) 81 mg PO DAILY [facility] Last Admin: 01/01/18 12:06 Dose: 81 mg Atorvastatin Calcium (Lipitor) 40 mg PO HS [facility] Last Admin: 01/01/18 22:04 Dose: 40 mg Budesonide (Pulmicort Respules) 0.5 mg IH [id number] [facility] Last Admin: 01/02/18 07:20 Dose: 0.5 mg Calcitriol (Rocaltrol) 0.5 mcg PO DAILY [facility] Last Admin: 01/01/18 10:20 Dose: 0.5 mcg Gabapentin (Neurontin) 300 mg PO BID [facility]; Protocol Last Admin: 01/01/18 18:38 Dose: 300 mg Hydralazine HCl (Apresoline) 10 mg PO QID PRN PRN Reason: for SBP>160 Last Admin: 12/29/17 04:48 Dose: 10 mg Cefepime HCl (Maxipime 1gm) 1 gm in 100 mls @ 25 mls/hr IVPB Q24H [facility]; Protocol Stop: 01/06/18 14:31 Last Admin: 01/01/18 15:28 Dose: 25 mls/hr Daptomycin 500 mg/ Sodium (Chloride) 100 mls @ 200 mls/hr IV Q48H [facility] Stop: 01/06/18 10:16 Last Admin: 01/01/18 11:58 Dose: 200 mls/hr Isosorbide Mononitrate (Imdur Er) 30 mg PO DAILY [facility] Levothyroxine Sodium (Synthroid) 25 mcg PO 0600 [facility] Last Admin: 01/02/18 05:55 Dose: 25 mcg Memantine (Namenda) 10 mg PO DAILY [facility] Last Admin: 01/01/18 10:20 Dose: 10 mg Metoprolol Tartrate (Lopressor) 12.5 mg PO BID [facility] Last Admin: 01/01/18 17:39 Dose: 12.5 mg Montelukast Sodium (Singulair) 10 mg PO HS [facility] Last Admin: 01/01/18 22:04 Dose: 10 mg Nicotine (Nicoderm Cq) 1 patch TD DAILY [facility] Last Admin: 01/01/18 10:20 Dose: 1 patch Pantoprazole Sodium (Protonix Ec Tab) 20 mg PO 0600 [facility] Last Admin: 01/02/18 05:55 Dose: 20 mg Tamsulosin HCl (Flomax) 0.4 mg PO DAILY [facility] Last Admin: 01/01/18 10:20 Dose: 0.4 mg - Labs Labs: 01/02/18 03:40 01/02/18 03:40 PT 14.2 SECONDS (9.4-12.5) H 12/29/17 10:05 INR 1.23 12/29/17 10:05 APTT 29.6 Seconds (25.1-36.5) 12/29/17 10:05 - Constitutional Appears: No Acute Distress - Head Exam Head Exam: ATRAUMATIC, NORMOCEPHALIC - Eye Exam Eye Exam: EOMI, PERRL - Respiratory Exam Respiratory Exam: NORMAL BREATHING PATTERN - Cardiovascular Exam Cardiovascular Exam: REGULAR RHYTHM, +S1, +S2 - GI/Abdominal Exam GI & Abdominal Exam: Soft, Normal Bowel Sounds. absent: Guarding, Rigid, Tenderness - Extremities Exam Extremities Exam: Normal Capillary Refill - Neurological Exam Neurological Exam: Alert, Awake Additional comments: patient moving all four extremities Motor and sensory grossly intact - Psychiatric Exam Psychiatric exam: Normal Mood Additional comments: baseline dementia - Skin Skin Exam: Dry, Warm Assessment and Plan - Assessment and Plan (Free Text) Assessment: 87 year old male with past medical history of COPD, CHF s/p AICD, HTN, CAD s/p CABG, CKD stage IV, dementia, iron deficiency anemia, hx of gastritis, HLD with severe anemia. Patient s/p colonoscopy and EGD showing multiple AVM. Plan: Anemia likely secondary to urethra trauma Acute blood loss anemia due to GI bleed. Acute on chronic kidney injury Demenita HTN HLD CHF s/p AICD (EF of 55%) - Anemia likely secondary to trauma to urethra, patient without blood on rectal exam - Urology following, f/u recs - EGD 12/25/17 Shows gastric and duodenal bulb AVMs. Gastric AVM had active bleeding and was injected with epi and clipped, f/u Pathology - s/p 2 units pRBCs 12/25/17, patient receiving further pRBC transfusion for drop in H/H - Patient NPO at this time for possible cysto - Continue PPI - Abd/Pelvis with PO contrast: No obvious GI mass. - Monitor H/H with serial CBC, transfuse if symptomatic or hgb<7 - Avoid NSAIDs, blood thinners - Further recommendations per Dr. Murdock <Mathieu,Kovinesha V - Last Filed: 01/06/18 22:36> Objective - Vital Signs/Intake and Output Vital Signs (last 24 hours): Temp Pulse Resp BP Pulse Ox 98.3 F 86 20 130/60 96 01/02/18 17:57 01/02/18 18:47 01/02/18 17:57 01/02/18 17:57 01/02/18 06:00 Intake and Output: 01/02/18 01/03/18 18:59 06:59 Intake Total 1040 Output Total 300 Balance 740 - Medications Medications: Current Medications Acetaminophen (Tylenol 325mg Tab) 650 mg PO Q6H PRN PRN Reason: Fever >100.4 F Last Admin: 12/31/17 01:25 Dose: 650 mg Albuterol/Ipratropium (Duoneb 3 Mg/0.5 Mg (3 Ml) Ud) 3 ml IH [id number] PRN PRN Reason: Shortness of Breath Last Admin: 12/26/17 19:55 Dose: 3 ml Albuterol/Ipratropium (Duoneb 3 Mg/0.5 Mg (3 Ml) Ud) 3 ml IH [id number] [facility] Last Admin: 01/02/18 19:22 Dose: 3 ml Arformoterol Tartrate (Brovana) 15 mcg IH [id number] [facility] Last Admin: 01/02/18 19:22 Dose: 15 mcg Aspirin (Ecotrin) 81 mg PO DAILY [facility] Last Admin: 01/02/18 10:08 Dose: 81 mg Atorvastatin Calcium (Lipitor) 40 mg PO HS [facility] Last Admin: 01/02/18 22:20 Dose: 40 mg Budesonide (Pulmicort Respules) 0.5 mg IH [id number] [facility] Last Admin: 01/02/18 19:22 Dose: 0.5 mg Calcitriol (Rocaltrol) 0.5 mcg PO DAILY [facility] Last Admin: 01/02/18 10:08 Dose: 0.5 mcg Gabapentin (Neurontin) 300 mg PO BID [facility]; Protocol Last Admin: 01/02/18 17:26 Dose: 300 mg Hydralazine HCl (Apresoline) 10 mg PO QID PRN PRN Reason: for SBP>160 Last Admin: 12/29/17 04:48 Dose: 10 mg Cefepime HCl (Maxipime 1gm) 1 gm in 100 mls @ 25 mls/hr IVPB Q24H [facility]; Protocol Stop: 01/06/18 14:31 Last Admin: 01/02/18 15:39 Dose: 25 mls/hr Daptomycin 500 mg/ Sodium (Chloride) 100 mls @ 200 mls/hr IV Q48H [facility] Stop: 01/06/18 10:16 Last Admin: 01/01/18 11:58 Dose: 200 mls/hr Iron Sucrose 100 mg/ Sodium (Chloride) 105 mls @ 210 mls/hr IVPB DAILY [facility] Stop: 01/04/18 10:29 Last Admin: 01/02/18 12:22 Dose: 210 mls/hr Isosorbide Mononitrate (Imdur Er) 30 mg PO DAILY [facility] Last Admin: 01/02/18 10:08 Dose: 30 mg Levothyroxine Sodium (Synthroid) 25 mcg PO 0600 [facility] Last Admin: 01/02/18 05:55 Dose: 25 mcg Memantine (Namenda) 10 mg PO DAILY [facility] Last Admin: 01/02/18 10:08 Dose: 10 mg Metoprolol Tartrate (Lopressor) 12.5 mg PO BID [facility] Last Admin: 01/02/18 17:26 Dose: 12.5 mg Montelukast Sodium (Singulair) 10 mg PO HS [facility] Last Admin: 01/02/18 22:20 Dose: 10 mg Nicotine (Nicoderm Cq) 1 patch TD DAILY [facility] Last Admin: 01/02/18 10:07 Dose: 1 patch Pantoprazole Sodium (Protonix Ec Tab) 20 mg PO 0600 [facility] Last Admin: 01/02/18 05:55 Dose: 20 mg Tamsulosin HCl (Flomax) 0.4 mg PO DAILY [facility] Last Admin: 01/02/18 10:08 Dose: 0.4 mg - Labs Labs: 01/02/18 03:40 01/02/18 03:40 PT 14.2 SECONDS (9.4-12.5) H 12/29/17 10:05 INR 1.23 12/29/17 10:05 APTT 29.6 Seconds (25.1-36.5) 12/29/17 10:05 Attending/Attestation - Attestation I have personally seen and examined this patient.: Yes I have fully participated in the care of the patient.: Yes I have reviewed all pertinent clinical information, including history, physical exam and plan: Yes Notes (Text): This is an addendum to GI followup report dictated by the [employer]. The patient was seen and evaluated earlier. Medical records, lab studies, imagings were reviewed. Last 24 hours events reviewed. Agreed with the above treatment plan as outlined in [employer] 's notes with the addition of the following hematuria clearing up Followup HCT Episodes of confusion Continue PPI low dose and antibiotics as per ID Cardiology followup 01/06/18 22:36
--- NOTE | 2018-01-02 11:49 | PN ---
DATE: 01/02/2018 REASON FOR THE CONSULTATION AND FOLLOWUP: Positive troponin, end-stage renal disease, delirious, possible dementia, was on two-point positive restraint, CKD. SUBJECTIVE: The patient denies any chest pain, shortness of breath, or any palpitation. PHYSICAL EXAMINATION: GENERAL: Not in any apparent distress, lying flat in the bed. VITAL SIGNS: Temperature afebrile, heart rate 78, blood pressure 127/57. HEENT: PERRLA. Extraocular muscles are intact. NECK: Supple. No carotid bruits or thyromegaly. CHEST: Clear to auscultation. HEART: S1 and S2 regular. ABDOMEN: Soft. EXTREMITIES: Clubbing and cyanosis negative. LABORATORY DATA: Blood workup as follows: WBC 9, hemoglobin 8.6, hematocrit 28.2, and platelet count 152. Chemistry shows sodium 140, potassium 5, chloride 113, carbon dioxide 22, anion gap of 10, BUN 47, and creatinine 2.7. Troponin 9, trending down to 7.37. IMPRESSION AND PLAN: An 87-year-old male with past medical history significant for anemia, given multiple transfusions; history of chronic kidney disease stage 3-4; massive genitourinary bleed multiple times, status post multiple pack RBC transfusion yesterday; was complaining of some chest pain to the nurse practitioner and later on, the patient denies any chest pain. Since the patient's condition and pulling the catheter, it is not a condition to go to technical laboratory asst and since the patient has no chest pain and EKG did not show any changes, we will try to treat medically and we will treat it medically. Put a baby aspirin as tolerated. Continue nitrate. Continue beta-gina. Also, the patient had earlier sepsis, not a candidate for ANDRE. Discussed with Dr. Fairbanks. We will treat medically. Overall, the patient's condition to be treated medically and DNR should be discussed because of the overall patient's comorbidity. A strong consideration should be made to discuss the DNR. Status post multiple pack RBC transfusion. Positive troponin, non-ST segment myocardial infarction, chronic kidney disease, underlying coronary artery disease, and positive troponin secondary to underlying coronary artery disease as well as kidney disease, but again, the patient is not a candidate to go for technical laboratory asst. We will treat him medically. Monitor H and H. Continue antibiotic. Continue baby aspirin. Continue nitrate every 6 hours. Continue low dose beta gina as blood pressure is tolerated and we will change nitrate to Imdur from tomorrow and discontinue nitrate after today's dose. We will start Imdur from today and we will discontinue nitro paste. Troponin is trending down. Repeat EKG shows normal sinus, right bundle, and left anterior hemiblock, no change from before. Thank you, Dr. Rivas, for providing us the opportunity in taking care of patient, Faraz Zuñiga. Radha Woodward MD
--- NOTE | 2018-01-02 15:28 | PN ---
DATE: 01/02/2018 PULMONARY PROGRESS NOTE REFERRING PHYSICIAN: Irasema Rivas MD. SUBJECTIVE: He is lying in the bed, sleepy, arousable. Mild cough. Not much sputum production. No hemoptysis. No hematemesis. No more hematuria. Has a Mann catheter with clear urine. No leg swelling. PHYSICAL EXAMINATION: GENERAL: In no acute distress. VITAL SIGNS: Temperature is 98, heart rate 78, respiratory rate is 20, blood pressure 127/56, pulse ox 96% on 2 liters nasal cannula. HEENT: Moist mucous membrane. Crowded airway. NECK: Supple. No JVD. LUNGS: Have a few scattered rhonchi. HEART: S1 and S2. ABDOMEN: Soft, nontender. No organomegaly. EXTREMITIES: No edema. NEUROLOGICAL: Sleepy, arousable. LABORATORY DATA: Shows hydralazine 10 mg four times a day p.r.n., Brovana inhaled twice a day, daptomycin 500 mg every 48 hours, DuoNeb every 4 hours, Ecotrin 81 mg daily, Flomax 0.4 mg daily, 30 mg daily, iron sucrose 100 mg IV daily, Lipitor 240 mg daily, metoprolol tartrate 12.5 mg twice a day, Maxipime 1 g IV every 24 hours, Namenda is at 10 mg daily, Neurontin 300 mg b.i.d., Nicoderm patch daily, Protonix 40 mg daily, Pulmicort inhaled twice a day, Singulair 10 mg daily, Synthroid 25 mcg daily, and Tylenol p.r.n. basis. LABORATORY DATA: Shows hemoglobin 8.6, hematocrit 28.2, WBC 9.3, platelet is 142. Sodium 140, potassium 5, chloride 113, bicarbonate 22, BUN 46, creatinine 2.7, glucose is 84, calcium 9.4, magnesium 2.1. Microbiology: Repeat blood culture, which is done yesterday, so far, there is no growth. Previous blood culture has gram-positive cocci. IMPRESSION AND PLAN: Sepsis, has a bacteremia, gram-positive cocci, probably origin is genitourinary system. Had a hematuria which is improved. Now has a clear urine in the Mann. Severe anemia requiring 2 units of packed RBCs last 2 days, also required IV iron. Chronic obstructive lung disease, cardiomyopathy with diastolic and systolic dysfunction, pulmonary hypertension, coronary artery disease, hyperlipidemia, history of gastric angiopathy, probably has oropharyngeal dysphagia. Pulmonary point of view, doing okay, keep head at 45 degrees, bronchodilator, aspiration precaution. Try to feed while sitting up. Gastric prophylaxis. SCD to lower extremity. Could not do chemical DVT prophylaxis because of severe anemia, bleeding. If possible, get him out of bed to chair. Thank you and we will follow with you. Radha Vail MD
[2018-01-02] MEDS: Cefepime 1gm in NS 100ml 1 GM/100 ML BAG IVPB SCH (15:39)
--- NOTE | 2018-01-02 23:47 | PN ---
DATE: 01/02/2018 SUBJECTIVE: The patient is in bed, in no acute distress, was seen early this morning. PHYSICAL EXAMINATION: VITAL SIGNS: The patient is awake and responsive with a temperature of 98, blood pressure is 130/60, respiratory rate of 18. HEENT: Examination of HEENT is unremarkable. NECK: Supple. LUNGS: Have decreased breath sounds. HEART: Normal S1, S2. ABDOMEN: Soft, nontender. LABORATORY DATA: Laboratory examination reveals a white count of 9.3, hemoglobin of 8. BUN of 46, creatinine of 2.7. Urinalysis is noted and toxicology is reviewed. Vanco random level is 15. Immunology is reviewed and HIV is negative and microbiology reveals the patient has MRSA bacteremia with TOBY of the vancomycin is 1. The repeat blood cultures from yesterday are reported to be negative. Multiple blood cultures have been positive and review of orders reveals the patient to be on daptomycin, cefepime. ASSESSMENT AND PLAN: An 87-year-old male was seen early this morning with history of coronary artery disease, coronary bypass graft, pacemaker, chronic obstructive lung disease, cardiomyopathy, hypertension, pulmonary hypertension diastolic congestive heart failure, dementia, who is now in the hospital with sepsis with methicillin-sensitive Staphylococcus aureus bacteremia, unclear source. Multiple cultures positive, must rule out endocarditis and/or pacemaker infection with healthcare-associated pneumonia, currently on daptomycin, today is day #2 and also on Maxipime. Case discussed with Dr. Woodward regarding the need for transesophageal echo because of a positive pacemaker in a patient with non-ST elevation myocardial infarction and today is day #2 of daptomycin and day #4 of cefepime. We will discontinue the cefepime in next few days and we will need prolonged daptomycin therapy in this patient who has renal insufficiency and difficult to manage with vancomycin, who also had [id number] myocardial infarction. Overall prognosis is quite poor. Thor Fairbanks MD
--- NOTE | 2018-01-03 00:31 | PN ---
DATE: 01/02/2018 SUBJECTIVE: Patient is an 87-year-old male. Patient was seen and examined on the bedside on 01/02/2018. Daughter, Lizbet was sitting on the bedside also. I was happy to see her. Then, I explained all her father's condition. Patient is still bleeding from the genitalia and still plan to pull Mann's catheter, need restraint. Mild cough. No sputum production. Has Mann's catheter and according to nursing staff, in the diaper, there was too much blood clots. No fever. No chills. PHYSICAL EXAMINATION: VITAL SIGNS: Temperature 98, heart rate 70, respiratory rate 20, blood pressure 127/56. HEENT: Head: Normocephalic, atraumatic. Eyes: PERRLA. Extraocular muscles intact. Conjunctivae clear. Nose patent. Mucous membrane moist. NECK: Supple. No carotid bruit, JVD, or thyromegaly. CHEST: Bilaterally symmetrical. HEART: S1 and S2 positive. LUNGS: Clear to auscultation. ABDOMEN: Soft and nontender. No organomegaly. EXTREMITIES: No edema. No cyanosis. NEUROLOGIC: Patient is awake. Moving all 4 extremities. Following simple orders if alert. MEDICATIONS: Hydralazine, Brovana, daptomycin, DuoNeb, Ecotrin, Flomax, iron, Lipitor, metoprolol, Maxipime, Namenda, Neurontin, Nicoderm patch, Protonix, Singulair, Synthroid, Tylenol. LABORATORY DATA: Hemoglobin 8.6, hematocrit 28.2, white blood cells 9.3, platelets 142. Sodium 140, potassium 5, BUN 46, creatinine 2.7, magnesium 2.1, calcium 9.4. ASSESSMENT AND PLAN: Mr. Faraz Zuñiga is an 87-year-old male with sepsis, getting antibiotics; has bacteremia and Gram-positive cocci, probably origin is genitourinary system; urinary tract infection; had hematuria which is off and on; severe anemia, requiring at least 4 units of packed red bed cells and 2 time iron infusion; chronic obstructive lung disease; cardiomyopathy; pulmonary hypertension; coronary artery disease; hypercholesterolemia. Aspiration precaution. Sequential compression device to lower extremities. History of gastrointestinal bleeding, got arteriovenous malformations and Dr. Murdock did stapling and cauterization. Discussion done with the daughter and urged to talk to the patient that he will not put his Mann. Continue present treatment. Out of bed. Physical therapy. We will follow up. Irasema Rivas MD
[2018-01-03] MEDS: Albuterol-Ipratrop 3 mg / 0.5 (3 ml) UD IH SCH ×4 (01:33→20:36)
[2018-01-03] MEDS: Levothyroxine 25 MCG TAB PO SCH (06:32)
[2018-01-03] MEDS: Pantoprazole 20 mg EC Tab PO SCH (06:32)
[2018-01-03 06:53] LABS: HEMOGLOBIN 8.2 g/dL (14.0-18.0); MEAN CELL VOLUME 88.9 fl (80.0-105.0); MEAN CORPUSCULAR HEMOGLOBIN 26.7 pg (25.0-35.0); MEAN PLATELET VOLUME 10.6 fl (7.0-11.0); RBC 3.07 10^6/uL (3.5-6.1); RED CELL DISTRIBUTION WIDTH 18.8 % (11.5-14.5); WHITE BLOOD COUNT 7.2 10^3/ul (4.5-11.0)
--- NOTE | 2018-01-03 07:01 | CP.PCM.PN ---
<Billy Ray - Last Filed: 01/04/18 10:15> Subjective - Date & Time of Evaluation Date of Evaluation: 01/03/18 Time of Evaluation: 06:59 - Subjective Subjective: Lynda Ray IM Resident - GI Progress Note Patient seen and evaluated this AM. Patient with episode of VTach last evening. Cardiology made aware. Patient without complaints. Objective - Vital Signs/Intake and Output Vital Signs (last 24 hours): Temp Pulse Resp BP Pulse Ox 97.9 F 84 19 129/65 94 L 01/03/18 05:59 01/03/18 05:59 01/03/18 05:59 01/03/18 05:59 01/03/18 05:59 Intake and Output: 01/02/18 01/03/18 18:59 06:59 Intake Total 1040 Output Total 700 Balance 340 - Medications Medications: Current Medications Acetaminophen (Tylenol 325mg Tab) 650 mg PO Q6H PRN PRN Reason: Fever >100.4 F Last Admin: 12/31/17 01:25 Dose: 650 mg Albuterol/Ipratropium (Duoneb 3 Mg/0.5 Mg (3 Ml) Ud) 3 ml IH [id number] PRN PRN Reason: Shortness of Breath Last Admin: 12/26/17 19:55 Dose: 3 ml Albuterol/Ipratropium (Duoneb 3 Mg/0.5 Mg (3 Ml) Ud) 3 ml IH [id number] [facility] Last Admin: 01/03/18 01:33 Dose: 3 ml Arformoterol Tartrate (Brovana) 15 mcg IH [id number] [facility] Last Admin: 01/02/18 19:22 Dose: 15 mcg Aspirin (Ecotrin) 81 mg PO DAILY [facility] Last Admin: 01/02/18 10:08 Dose: 81 mg Atorvastatin Calcium (Lipitor) 40 mg PO HS [facility] Last Admin: 01/02/18 22:20 Dose: 40 mg Budesonide (Pulmicort Respules) 0.5 mg IH [id number] [facility] Last Admin: 01/02/18 19:22 Dose: 0.5 mg Calcitriol (Rocaltrol) 0.5 mcg PO DAILY [facility] Last Admin: 01/02/18 10:08 Dose: 0.5 mcg Gabapentin (Neurontin) 300 mg PO BID [facility]; Protocol Last Admin: 01/02/18 17:26 Dose: 300 mg Hydralazine HCl (Apresoline) 10 mg PO QID PRN PRN Reason: for SBP>160 Last Admin: 12/29/17 04:48 Dose: 10 mg Cefepime HCl (Maxipime 1gm) 1 gm in 100 mls @ 25 mls/hr IVPB Q24H [facility]; Protocol Stop: 01/06/18 14:31 Last Admin: 01/02/18 15:39 Dose: 25 mls/hr Daptomycin 500 mg/ Sodium (Chloride) 100 mls @ 200 mls/hr IV Q48H [facility] Stop: 01/06/18 10:16 Last Admin: 01/01/18 11:58 Dose: 200 mls/hr Iron Sucrose 100 mg/ Sodium (Chloride) 105 mls @ 210 mls/hr IVPB DAILY [facility] Stop: 01/04/18 10:29 Last Admin: 01/02/18 12:22 Dose: 210 mls/hr Isosorbide Mononitrate (Imdur Er) 30 mg PO DAILY [facility] Last Admin: 01/02/18 10:08 Dose: 30 mg Levothyroxine Sodium (Synthroid) 25 mcg PO 0600 [facility] Last Admin: 01/03/18 06:32 Dose: 25 mcg Memantine (Namenda) 10 mg PO DAILY [facility] Last Admin: 01/02/18 10:08 Dose: 10 mg Metoprolol Tartrate (Lopressor) 12.5 mg PO BID [facility] Last Admin: 01/02/18 17:26 Dose: 12.5 mg Montelukast Sodium (Singulair) 10 mg PO HS [facility] Last Admin: 01/02/18 22:20 Dose: 10 mg Nicotine (Nicoderm Cq) 1 patch TD DAILY [facility] Last Admin: 01/02/18 10:07 Dose: 1 patch Pantoprazole Sodium (Protonix Ec Tab) 20 mg PO 0600 [facility] Last Admin: 01/03/18 06:32 Dose: 20 mg Tamsulosin HCl (Flomax) 0.4 mg PO DAILY [facility] Last Admin: 01/02/18 10:08 Dose: 0.4 mg - Labs Labs: 01/02/18 03:40 01/02/18 03:40 PT 14.2 SECONDS (9.4-12.5) H 12/29/17 10:05 INR 1.23 12/29/17 10:05 APTT 29.6 Seconds (25.1-36.5) 12/29/17 10:05 - Constitutional Appears: No Acute Distress - Head Exam Head Exam: ATRAUMATIC, NORMOCEPHALIC - Eye Exam Eye Exam: EOMI, PERRL - Respiratory Exam Respiratory Exam: Clear to Ausculation Bilateral, NORMAL BREATHING PATTERN - Cardiovascular Exam Cardiovascular Exam: REGULAR RHYTHM, +S1, +S2 - GI/Abdominal Exam GI & Abdominal Exam: Soft, Normal Bowel Sounds - Neurological Exam Neurological Exam: Alert, Awake - Psychiatric Exam Additional comments: baseline dementia - Skin Skin Exam: Dry, Warm Assessment and Plan - Assessment and Plan (Free Text) Assessment: 87 year old male with past medical history of COPD, CHF s/p AICD, HTN, CAD s/p CABG, CKD stage IV, dementia, iron deficiency anemia, hx of gastritis, HLD with severe anemia. Patient s/p colonoscopy and EGD showing multiple non bleeding AVM. Plan: Anemia likely secondary to urethra trauma Acute blood loss anemia due to GI bleed NSTEMI Sepsis secondary to MSSA bacteremia with unclear source Demenita HTN HLD CHF s/p AICD (EF of 55%) - EGD 12/25/17 Shows gastric and duodenal bulb AVMs. Gastric AVM had active bleeding and was injected with epi and clipped, f/u Pathology - s/p 2 units pRBCs - Continue PPI - Abd/Pelvis with PO contrast: No obvious GI mass. - Monitor H/H with serial CBC, transfuse if symptomatic or hgb<7 - Elevated troponins signalign NSTEMI, Cardiology following - ID following for bacteremia, ruling out endocarditis vs. pacemaker infection vs. HCAP - Antibiotics as per ID, Daptomycin day#3, cefepime day#4 - Further recommendations per Dr. Murdock <MathieuKozaira V - Last Filed: 01/06/18 22:34> Objective - Vital Signs/Intake and Output Vital Signs (last 24 hours): Temp Pulse Resp BP Pulse Ox 98.8 F 94 H 18 135/65 94 L 01/03/18 16:57 01/03/18 18:00 01/03/18 16:57 01/03/18 17:29 01/03/18 05:59 Intake and Output: 01/03/18 01/04/18 18:59 06:59 Intake Total 890 Output Total 600 Balance 290 - Medications Medications: Current Medications Acetaminophen (Tylenol 325mg Tab) 650 mg PO Q6H PRN PRN Reason: Fever >100.4 F Last Admin: 12/31/17 01:25 Dose: 650 mg Albuterol/Ipratropium (Duoneb 3 Mg/0.5 Mg (3 Ml) Ud) 3 ml IH [id number] PRN PRN Reason: Shortness of Breath Last Admin: 12/26/17 19:55 Dose: 3 ml Albuterol/Ipratropium (Duoneb 3 Mg/0.5 Mg (3 Ml) Ud) 3 ml IH [id number] [facility] Last Admin: 01/03/18 20:36 Dose: 3 ml Arformoterol Tartrate (Brovana) 15 mcg IH [id number] [facility] Last Admin: 01/03/18 20:36 Dose: 15 mcg Aspirin (Ecotrin) 81 mg PO DAILY [facility] Last Admin: 01/03/18 10:49 Dose: 81 mg Atorvastatin Calcium (Lipitor) 40 mg PO HS [facility] Last Admin: 01/02/18 22:20 Dose: 40 mg Budesonide (Pulmicort Respules) 0.5 mg IH [id number] [facility] Last Admin: 01/03/18 20:37 Dose: 0.5 mg Calcitriol (Rocaltrol) 0.5 mcg PO DAILY [facility] Last Admin: 01/03/18 10:48 Dose: 0.5 mcg Gabapentin (Neurontin) 300 mg PO BID [facility]; Protocol Last Admin: 01/03/18 17:29 Dose: 300 mg Hydralazine HCl (Apresoline) 10 mg PO QID PRN PRN Reason: for SBP>160 Last Admin: 12/29/17 04:48 Dose: 10 mg Daptomycin 500 mg/ Sodium (Chloride) 100 mls @ 200 mls/hr IV Q48H [facility] Stop: 01/06/18 10:16 Last Admin: 01/03/18 10:47 Dose: 200 mls/hr Iron Sucrose 100 mg/ Sodium (Chloride) 105 mls @ 210 mls/hr IVPB DAILY [facility] Stop: 01/04/18 10:29 Last Admin: 01/03/18 10:48 Dose: 210 mls/hr Isosorbide Mononitrate (Imdur Er) 30 mg PO DAILY [facility] Last Admin: 01/03/18 10:48 Dose: 30 mg Levothyroxine Sodium (Synthroid) 25 mcg PO 0600 [facility] Last Admin: 01/03/18 06:32 Dose: 25 mcg Memantine (Namenda) 10 mg PO DAILY [facility] Last Admin: 01/03/18 10:48 Dose: 10 mg Metoprolol Tartrate (Lopressor) 12.5 mg PO BID [facility] Last Admin: 01/03/18 17:29 Dose: 12.5 mg Montelukast Sodium (Singulair) 10 mg PO HS [facility] Last Admin: 01/02/18 22:20 Dose: 10 mg Nicotine (Nicoderm Cq) 1 patch TD DAILY [facility] Last Admin: 01/03/18 10:50 Dose: 1 patch Pantoprazole Sodium (Protonix Ec Tab) 20 mg PO 0600 [facility] Last Admin: 01/03/18 06:32 Dose: 20 mg Tamsulosin HCl (Flomax) 0.4 mg PO DAILY [facility] Last Admin: 01/03/18 10:49 Dose: 0.4 mg - Labs Labs: 01/03/18 05:30 01/03/18 07:30 PT 14.2 SECONDS (9.4-12.5) H 12/29/17 10:05 INR 1.23 12/29/17 10:05 APTT 29.6 Seconds (25.1-36.5) 12/29/17 10:05 Attending/Attestation - Attestation I have personally seen and examined this patient.: Yes I have fully participated in the care of the patient.: Yes I have reviewed all pertinent clinical information, including history, physical exam and plan: Yes Notes (Text): This is a delayed addendum to GI followup report dictated by the Entry Level Sales Consultant. The patient was seen and evaluated earlier. Medical records, lab studies, imagings were reviewed. Last 24 hours events reviewed. Agreed with the above treatment plan as outlined in Entry Level Sales Consultant 's notes with the addition of the following Patient confused Followup swallowing evaluation Puree diet with assistance If able to tolerate followup hb 01/06/18 22:33
--- NOTE | 2018-01-03 07:05 | CP.PCM.PN ---
Subjective - Date & Time of Evaluation Date of Evaluation: 01/03/18 Time of Evaluation: 06:10 - Subjective Subjective: No distress, lying in bed,BIPAP/CPAP on Reason for consultation and follow up: Cardiac evaluation for elevated BNP, rule out congestive heart failure Seen and examined by me and Dr. Woodward Objective - Vital Signs/Intake and Output Vital Signs (last 24 hours): Temp Pulse Resp BP Pulse Ox 97.9 F 84 19 129/65 94 L 01/03/18 05:59 01/03/18 05:59 01/03/18 05:59 01/03/18 05:59 01/03/18 05:59 Intake and Output: 01/03/18 01/03/18 06:59 18:59 Intake Total 1040 Output Total 700 Balance 340 - Medications Medications: Current Medications Acetaminophen (Tylenol 325mg Tab) 650 mg PO Q6H PRN PRN Reason: Fever >100.4 F Last Admin: 12/31/17 01:25 Dose: 650 mg Albuterol/Ipratropium (Duoneb 3 Mg/0.5 Mg (3 Ml) Ud) 3 ml IH [id number] PRN PRN Reason: Shortness of Breath Last Admin: 12/26/17 19:55 Dose: 3 ml Albuterol/Ipratropium (Duoneb 3 Mg/0.5 Mg (3 Ml) Ud) 3 ml IH [id number] [facility] Last Admin: 01/03/18 01:33 Dose: 3 ml Arformoterol Tartrate (Brovana) 15 mcg IH [id number] [facility] Last Admin: 01/02/18 19:22 Dose: 15 mcg Aspirin (Ecotrin) 81 mg PO DAILY [facility] Last Admin: 01/02/18 10:08 Dose: 81 mg Atorvastatin Calcium (Lipitor) 40 mg PO HS [facility] Last Admin: 01/02/18 22:20 Dose: 40 mg Budesonide (Pulmicort Respules) 0.5 mg IH [id number] [facility] Last Admin: 01/02/18 19:22 Dose: 0.5 mg Calcitriol (Rocaltrol) 0.5 mcg PO DAILY [facility] Last Admin: 01/02/18 10:08 Dose: 0.5 mcg Gabapentin (Neurontin) 300 mg PO BID [facility]; Protocol Last Admin: 01/02/18 17:26 Dose: 300 mg Hydralazine HCl (Apresoline) 10 mg PO QID PRN PRN Reason: for SBP>160 Last Admin: 12/29/17 04:48 Dose: 10 mg Cefepime HCl (Maxipime 1gm) 1 gm in 100 mls @ 25 mls/hr IVPB Q24H [facility]; Protocol Stop: 01/06/18 14:31 Last Admin: 01/02/18 15:39 Dose: 25 mls/hr Daptomycin 500 mg/ Sodium (Chloride) 100 mls @ 200 mls/hr IV Q48H [facility] Stop: 01/06/18 10:16 Last Admin: 01/01/18 11:58 Dose: 200 mls/hr Iron Sucrose 100 mg/ Sodium (Chloride) 105 mls @ 210 mls/hr IVPB DAILY [facility] Stop: 01/04/18 10:29 Last Admin: 01/02/18 12:22 Dose: 210 mls/hr Isosorbide Mononitrate (Imdur Er) 30 mg PO DAILY [facility] Last Admin: 01/02/18 10:08 Dose: 30 mg Levothyroxine Sodium (Synthroid) 25 mcg PO 0600 [facility] Last Admin: 01/03/18 06:32 Dose: 25 mcg Memantine (Namenda) 10 mg PO DAILY [facility] Last Admin: 01/02/18 10:08 Dose: 10 mg Metoprolol Tartrate (Lopressor) 12.5 mg PO BID [facility] Last Admin: 01/02/18 17:26 Dose: 12.5 mg Montelukast Sodium (Singulair) 10 mg PO HS [facility] Last Admin: 01/02/18 22:20 Dose: 10 mg Nicotine (Nicoderm Cq) 1 patch TD DAILY [facility] Last Admin: 01/02/18 10:07 Dose: 1 patch Pantoprazole Sodium (Protonix Ec Tab) 20 mg PO 0600 [facility] Last Admin: 01/03/18 06:32 Dose: 20 mg Tamsulosin HCl (Flomax) 0.4 mg PO DAILY [facility] Last Admin: 01/02/18 10:08 Dose: 0.4 mg - Labs Labs: 01/03/18 05:30 01/02/18 03:40 PT 14.2 SECONDS (9.4-12.5) H 12/29/17 10:05 INR 1.23 12/29/17 10:05 APTT 29.6 Seconds (25.1-36.5) 12/29/17 10:05 - Constitutional Appears: Non-toxic, No Acute Distress - Head Exam Head Exam: NORMAL INSPECTION, NORMOCEPHALIC - ENT Exam ENT Exam: Mucous Membranes Dry - Respiratory Exam Respiratory Exam: Decreased Breath Sounds, Rhonchi, NORMAL BREATHING PATTERN - Cardiovascular Exam Cardiovascular Exam: REGULAR RHYTHM, +S1, +S2 Additional comments: Telemetry NSR 70's AICD - GI/Abdominal Exam GI & Abdominal Exam: Soft, Normal Bowel Sounds - Exam Additional comments: sol catheter - Extremities Exam Extremities Exam: Normal Capillary Refill Additional comments: no edema - Neurological Exam Neurological Exam: Alert, Awake - Psychiatric Exam Psychiatric exam: Normal Affect - Skin Skin Exam: Dry, Normal Color, Warm Assessment and Plan - Assessment and Plan (Free Text) Assessment: An 87 year old male who was brought in from [facility] due to low hemoglobin.History of COPD,chronic diastolic CHF, hypertension, hyperlipidemia, dementia,anemia, coronary artery disease post CABG,cardiomyopathy, LVEF from ECHO 20%, AICD. Admitted for acute renal injury, severe anemia. Blood transfusion of 2 units PRBC given.On iron infusion.Repeat H/H stable. Confuse, GI work up. Had EGD with clipping and biopsy , active bleeding with multiple duodenal arteriovenous malformations, gastric arteriovenous malformations as Dieulafoy lesion.2 units PRBC given for low H/H. Confuse, pulled out IV and sol catheter.on soft wrist restraints. NSTEMI 2 days ago.Troponin 9. [facility] treatment.Troponin trending down.Post cystoscopy (evacuation of blood clots).As per Dr. Woodward,no invasive procedures. (ANDRE and cardiac catheterization due to underlying co morbidities. Plan: No distress, on BIPAP/CPAP,denies chest pain Heart rate stable, NSR 70's Blood pressure controlled Troponin trending down recent 7.34 Started on low dose Aspirin and Imdur On Lipitor 40 mg daily, Hydralazine IV PRN, Imdue ER 30 mg daily, Synthroid 25 mcg daily,Lopressor 12.5 mg BID, Flomax 0.4 mg daily, Nicoderm patch daily. Continue current treatment Continue current medications Fall precaution Aspiration precaution Chart reviewed Will follow up Plan and treatment discussed with Dr. Woodward
--- NOTE | 2018-01-03 07:43 | CP.PCM.PN ---
Subjective - Date & Time of Evaluation Date of Evaluation: 01/03/18 Time of Evaluation: 07:42 - Subjective Subjective: PGY-3 Nephrology Progress Note for Dr. Andrade Patient seen and examined at bedside. Patient is resting comfortably in bed with bipap mask on. No reported acute events over night. Patient denies headache, chest pain, sob, abd pain. Mann in place. Objective - Vital Signs/Intake and Output Vital Signs (last 24 hours): Temp Pulse Resp BP Pulse Ox 97.9 F 84 19 129/65 94 L 01/03/18 05:59 01/03/18 05:59 01/03/18 05:59 01/03/18 05:59 01/03/18 05:59 Intake and Output: 01/03/18 01/03/18 06:59 18:59 Intake Total 1040 Output Total 700 Balance 340 - Medications Medications: Current Medications Acetaminophen (Tylenol 325mg Tab) 650 mg PO Q6H PRN PRN Reason: Fever >100.4 F Last Admin: 12/31/17 01:25 Dose: 650 mg Albuterol/Ipratropium (Duoneb 3 Mg/0.5 Mg (3 Ml) Ud) 3 ml IH [id number] PRN PRN Reason: Shortness of Breath Last Admin: 12/26/17 19:55 Dose: 3 ml Albuterol/Ipratropium (Duoneb 3 Mg/0.5 Mg (3 Ml) Ud) 3 ml IH [id number] [facility] Last Admin: 01/03/18 01:33 Dose: 3 ml Arformoterol Tartrate (Brovana) 15 mcg IH [id number] [facility] Last Admin: 01/02/18 19:22 Dose: 15 mcg Aspirin (Ecotrin) 81 mg PO DAILY [facility] Last Admin: 01/02/18 10:08 Dose: 81 mg Atorvastatin Calcium (Lipitor) 40 mg PO HS [facility] Last Admin: 01/02/18 22:20 Dose: 40 mg Budesonide (Pulmicort Respules) 0.5 mg IH [id number] [facility] Last Admin: 01/02/18 19:22 Dose: 0.5 mg Calcitriol (Rocaltrol) 0.5 mcg PO DAILY [facility] Last Admin: 01/02/18 10:08 Dose: 0.5 mcg Gabapentin (Neurontin) 300 mg PO BID [facility]; Protocol Last Admin: 01/02/18 17:26 Dose: 300 mg Hydralazine HCl (Apresoline) 10 mg PO QID PRN PRN Reason: for SBP>160 Last Admin: 12/29/17 04:48 Dose: 10 mg Cefepime HCl (Maxipime 1gm) 1 gm in 100 mls @ 25 mls/hr IVPB Q24H [facility]; Protocol Stop: 01/06/18 14:31 Last Admin: 01/02/18 15:39 Dose: 25 mls/hr Daptomycin 500 mg/ Sodium (Chloride) 100 mls @ 200 mls/hr IV Q48H [facility] Stop: 01/06/18 10:16 Last Admin: 01/01/18 11:58 Dose: 200 mls/hr Iron Sucrose 100 mg/ Sodium (Chloride) 105 mls @ 210 mls/hr IVPB DAILY [facility] Stop: 01/04/18 10:29 Last Admin: 01/02/18 12:22 Dose: 210 mls/hr Isosorbide Mononitrate (Imdur Er) 30 mg PO DAILY [facility] Last Admin: 01/02/18 10:08 Dose: 30 mg Levothyroxine Sodium (Synthroid) 25 mcg PO 0600 [facility] Last Admin: 01/03/18 06:32 Dose: 25 mcg Memantine (Namenda) 10 mg PO DAILY [facility] Last Admin: 01/02/18 10:08 Dose: 10 mg Metoprolol Tartrate (Lopressor) 12.5 mg PO BID [facility] Last Admin: 01/02/18 17:26 Dose: 12.5 mg Montelukast Sodium (Singulair) 10 mg PO HS [facility] Last Admin: 01/02/18 22:20 Dose: 10 mg Nicotine (Nicoderm Cq) 1 patch TD DAILY [facility] Last Admin: 01/02/18 10:07 Dose: 1 patch Pantoprazole Sodium (Protonix Ec Tab) 20 mg PO 0600 [facility] Last Admin: 01/03/18 06:32 Dose: 20 mg Tamsulosin HCl (Flomax) 0.4 mg PO DAILY [facility] Last Admin: 01/02/18 10:08 Dose: 0.4 mg - Labs Labs: 01/03/18 05:30 01/02/18 03:40 PT 14.2 SECONDS (9.4-12.5) H 12/29/17 10:05 INR 1.23 12/29/17 10:05 APTT 29.6 Seconds (25.1-36.5) 12/29/17 10:05 - Additional Findings Additional findings: Mann in place with kelsi urine - Constitutional Appears: No Acute Distress - Head Exam Head Exam: ATRAUMATIC, NORMAL INSPECTION, NORMOCEPHALIC - Eye Exam Eye Exam: EOMI, Normal appearance. absent: Conjunctival injection, Periorbital swelling, Scleral icterus - ENT Exam ENT Exam: Mucous Membranes Moist, Normal External Ear Exam. absent: Mucous Membranes Dry - Neck Exam Neck Exam: Normal Inspection. absent: Meningismus, Tenderness - Respiratory Exam Respiratory Exam: Clear to Ausculation Bilateral, NORMAL BREATHING PATTERN. absent: Accessory Muscle Use, Chest Wall Tenderness, Decreased Breath Sounds, Rales, Respiratory Distress - Cardiovascular Exam Cardiovascular Exam: REGULAR RHYTHM. absent: Bradycardia, Tachycardia, Murmur - GI/Abdominal Exam GI & Abdominal Exam: Soft, Normal Bowel Sounds. absent: Distended, Firm, Guarding, Rigid, Tenderness - Extremities Exam Extremities Exam: Normal Inspection. absent: Calf Tenderness, Joint Swelling, Pedal Edema, Tenderness - Neurological Exam Neurological Exam: Alert, Awake, CN II-XII Intact. absent: Oriented x3 - Psychiatric Exam Psychiatric exam: Normal Affect, Normal Mood. absent: Agitated, Anxious - Skin Skin Exam: Dry, Intact, Normal Color, Warm Assessment and Plan - Assessment and Plan (Free Text) Assessment: UZAIR on CKD stage IV- stable fever with leukocytosis secondary to s. 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 No plan for renal replacement at this time. blood culture positive for s. aureus. Creatinine stable, improved form yesterday. continue calcitriol for secondary hyperparathyriodism. Patient received Venofer yesterday for iron deficiency and a total 6 units prbc for blood loss. BP stable. ID following for fevers and bactremia. GI following for blood loss and AVM. Will continue to monitor kidney function and electrolytes. Continue to monitor I&O. Case discussed and reviewed with Dr. Andrade.
[2018-01-03] MEDS: Arformoterol 15 mcg/2 ml Inh Sol IH SCH ×2 (07:57→20:36)
[2018-01-03] MEDS: Budesonide 0.5 mg/2 ml Inhal Susp UD IH SCH ×2 (07:57→20:37)
[2018-01-03 08:12] LABS: CALCIUM 9.2 mg/dL (8.4-10.5)
[2018-01-03] MEDS ORDERED: Sod Polystyrene Sulf 15 gm/60 ml Susp PO ONE (10:13)
--- NOTE | 2018-01-03 10:40 | PN ---
DATE: 01/03/2018 SUBJECTIVE: The patient is in bed, in no acute distress, nontoxic. PHYSICAL EXAMINATION: VITAL SIGNS: On exam, temperature is 97, blood pressure is 129/60, respiratory rate of 18. HEENT: Examination of HEENT is unremarkable. NECK: Supple. LUNGS: Have decreased breath sounds. HEART: Normal S1 and S2. ABDOMEN: Soft, nontender. LABORATORY DATA: Laboratory examination reveals a white count of 7.2, hemoglobin of 8. Chemistries reveals a BUN of 46, creatinine of 2.5. Vanco level is 15.7. Serology is noted. Immunology is reviewed. Cultures reveals MRSA, even the repeat cultures has MRSA. Review of orders reveals the patient to be on daptomycin. The patient did have 2 echos, the patient had an echo yesterday. No aortic valve stenosis. No mitral valve stenosis. Mitral valve is mildly thickened. ASSESSMENT AND PLAN: An 87-year-old man seen earlier today in [facility], bed 1 with coronary artery disease, coronary artery bypass graft, pacemaker, chronic obstructive lung disease, cardiomyopathy, hypertension, pulmonary hypertension, diastolic congestive heart failure, dementia, who was admitted, was in the hospital, developed sepsis with idiopathic thrombocytopenic purpura bacteremia. Repeat cultures are still positive. Concerned about an infected pacemaker in a patient with a [id number] myocardial infarction. We will repeat blood cultures. We will discontinue the cefepime and continue with the daptomycin. Blood cultures from yesterday are still positive. Concerned about deep-seated infection. The idiopathic thrombocytopenic purpura does have a vancomycin sensitivity with vancomycin TOBY of 1. We will follow. Thor Fairbanks MD
[2018-01-03] MEDS: DAPTOmycin 500 MG in Sodium Chloride 0.9% 100 ML IV SCH (10:47)
--- NOTE | 2018-01-03 23:35 | PN ---
DATE: 01/03/2018 SUBJECTIVE: The patient is an 87-year-old male. Patient was seen and examined at the bedside on 01/03/2018. Looking comfortable. No nausea, vomiting or diarrhea. No headache. No dizziness. No chest pain. No palpitation. No fever. No chills. Patient had episode of V-tach last evening. Operations Logistics Analyst is on the case. Discussion done with the family and nursing staff. PHYSICAL EXAMINATION: VITAL SIGNS: Temperature 97.9, pulse 84, respiratory rate 19, blood pressure 129/65, pulse oximetry 94%. HEENT: Head: Normocephalic, atraumatic. Eyes: PERRLA. Extraocular muscles intact. Conjunctivae clear. Nose patent. Mucous membrane moist. NECK: Supple. No carotid bruit, JVD or thyromegaly. CHEST: Bilaterally symmetrical. HEART: S1 and S2 positive. LUNGS: Clear to auscultation. ABDOMEN: Soft. Bowel sounds positive. No organomegaly. EXTREMITIES: No edema. No cyanosis. NEUROLOGIC: Patient is awake, alert. Follow simple commands. MEDICATIONS: Tylenol, DuoNeb, Brovana, Ecotrin, Lipitor, Pulmicort, Calcitrol, Neurontin, hydralazine, cefepime, daptomycin, iron, isosorbide, Singulair, Nicoderm, Protonix, Flomax. LABORATORY DATA: White blood cell 9.3, hemoglobin 8.6, hematocrit 28, platelet 152. Sodium 140, potassium 5, BUN 26, creatinine 2.7. Glucose 84. ASSESSMENT AND PLAN: Mr. Faraz Zuñiga is an 87-year-old male with anemia, hyperchloremia, renal insufficiency, history of chronic obstructive pulmonary disease, congestive heart failure, status post automatic implantable cardioverter-defibrillator, hypertension, coronary artery disease, status post coronary artery bypass graft, chronic kidney disease stage IV, dementia, iron deficiency, history of gastritis, severe anemia, status post at least 4 to 5 packed red blood cell infusion, iron infusion, status post colonoscopy and esophagogastroduodenoscopy showing multiple bleeding arteriovenous malformations that was clamped and cauterized by Dr. Murdock. The patient has history of multiple times urethral trauma and bleeding also, acute blood loss on chronic blood loss, non-ST elevation myocardial infarction, sepsis secondary to methicillin-sensitive Staphylococcus aureus bacteremia with unclear source, dementia,congestive heart failure. Reviewed GI, Cardiology, Nephrology and Infectious Disease notes. Repeat cultures still positive, so I concerned about an infected pacemaker in the patient with non-ST elevation myocardial infarction and according to Infectious Disease, we will repeat the blood culture. Discontinue cefepime. Continue with the daptomycin. Blood cultures from yesterday are still positive. Concerned about deep-seated infection. The idiopathic thrombocytopenia purpura does have vancomycin sensitivity with vancomycin minimum inhibitory concentration of 1. We will follow up. Irasema Rivas MD MTDD
[2018-01-04] MEDS: Albuterol-Ipratrop 3 mg / 0.5 (3 ml) UD IH SCH ×4 (01:37→19:40)
--- NOTE | 2018-01-04 06:38 | CP.PCM.PN ---
Subjective - Date & Time of Evaluation Date of Evaluation: 01/04/18 Time of Evaluation: 06:10 - Subjective Subjective: No distress, lying in bed,on nasal cannula Reason for consultation and follow up: Cardiac evaluation for elevated BNP, rule out congestive heart failure, NSTEMI, Seen and examined by me and Dr. Jacobson Objective - Vital Signs/Intake and Output Vital Signs (last 24 hours): Temp Pulse Resp BP Pulse Ox 98.3 F 90 18 134/59 L 97 01/04/18 00:01 01/04/18 06:00 01/04/18 00:01 01/04/18 00:01 01/04/18 00:01 Intake and Output: 01/03/18 01/04/18 18:59 06:59 Intake Total 890 120 Output Total 600 Balance 290 120 - Medications Medications: Current Medications Acetaminophen (Tylenol 325mg Tab) 650 mg PO Q6H PRN PRN Reason: Fever >100.4 F Last Admin: 12/31/17 01:25 Dose: 650 mg Albuterol/Ipratropium (Duoneb 3 Mg/0.5 Mg (3 Ml) Ud) 3 ml IH [id number] PRN PRN Reason: Shortness of Breath Last Admin: 12/26/17 19:55 Dose: 3 ml Albuterol/Ipratropium (Duoneb 3 Mg/0.5 Mg (3 Ml) Ud) 3 ml IH [id number] [facility] Last Admin: 01/04/18 01:37 Dose: 3 ml Arformoterol Tartrate (Brovana) 15 mcg IH [id number] [facility] Last Admin: 01/03/18 20:36 Dose: 15 mcg Aspirin (Ecotrin) 81 mg PO DAILY [facility] Last Admin: 01/03/18 10:49 Dose: 81 mg Atorvastatin Calcium (Lipitor) 40 mg PO HS [facility] Last Admin: 01/02/18 22:20 Dose: 40 mg Budesonide (Pulmicort Respules) 0.5 mg IH [id number] [facility] Last Admin: 01/03/18 20:37 Dose: 0.5 mg Calcitriol (Rocaltrol) 0.5 mcg PO DAILY [facility] Last Admin: 01/03/18 10:48 Dose: 0.5 mcg Gabapentin (Neurontin) 300 mg PO BID [facility]; Protocol Last Admin: 10/18/18 17:29 Dose: 300 mg Hydralazine HCl (Apresoline) 10 mg PO QID PRN PRN Reason: for SBP>160 Last Admin: 12/29/17 04:48 Dose: 10 mg Daptomycin 500 mg/ Sodium (Chloride) 100 mls @ 200 mls/hr IV Q48H [facility] Stop: 01/06/18 10:16 Last Admin: 01/03/18 10:47 Dose: 200 mls/hr Iron Sucrose 100 mg/ Sodium (Chloride) 105 mls @ 210 mls/hr IVPB DAILY [facility] Stop: 01/04/18 10:29 Last Admin: 01/03/18 10:48 Dose: 210 mls/hr Isosorbide Mononitrate (Imdur Er) 30 mg PO DAILY [facility] Last Admin: 01/03/18 10:48 Dose: 30 mg Levothyroxine Sodium (Synthroid) 25 mcg PO 0600 [facility] Last Admin: 01/03/18 06:32 Dose: 25 mcg Memantine (Namenda) 10 mg PO DAILY [facility] Last Admin: 01/03/18 10:48 Dose: 10 mg Metoprolol Tartrate (Lopressor) 12.5 mg PO BID [facility] Last Admin: 01/03/18 17:29 Dose: 12.5 mg Montelukast Sodium (Singulair) 10 mg PO HS [facility] Last Admin: 01/02/18 22:20 Dose: 10 mg Pantoprazole Sodium (Protonix Ec Tab) 20 mg PO 0600 [facility] Last Admin: 01/03/18 06:32 Dose: 20 mg Tamsulosin HCl (Flomax) 0.4 mg PO DAILY [facility] Last Admin: 01/03/18 10:49 Dose: 0.4 mg - Labs Labs: 01/03/18 05:30 01/03/18 07:30 PT 14.2 SECONDS (9.4-12.5) H 12/29/17 10:05 INR 1.23 12/29/17 10:05 APTT 29.6 Seconds (25.1-36.5) 12/29/17 10:05 - Constitutional Appears: Non-toxic, No Acute Distress - Head Exam Head Exam: NORMAL INSPECTION, NORMOCEPHALIC - ENT Exam ENT Exam: Mucous Membranes Dry - Respiratory Exam Respiratory Exam: Decreased Breath Sounds, NORMAL BREATHING PATTERN - Cardiovascular Exam Cardiovascular Exam: REGULAR RHYTHM, +S1, +S2 Additional comments: AICD Telemetry NSR 80's - GI/Abdominal Exam GI & Abdominal Exam: Soft, Normal Bowel Sounds - Exam Additional comments: sol catheter - Neurological Exam Neurological Exam: Alert, Awake - Psychiatric Exam Psychiatric exam: Normal Affect, Normal Mood - Skin Skin Exam: Dry, Normal Color, Warm Assessment and Plan - Assessment and Plan (Free Text) Assessment: An 87 year old male who was brought in from [facility] due to low hemoglobin.History of COPD,chronic diastolic CHF, hypertension, hyperlipidemia, dementia,anemia, coronary artery disease post CABG,cardiomyopathy, LVEF from ECHO 20%, AICD. Admitted for acute renal injury, severe anemia. Blood transfusion of 2 units PRBC given.On iron infusion.Repeat H/H stable. Confuse, GI work up. Had EGD with clipping and biopsy , active bleeding with multiple duodenal arteriovenous malformations, gastric arteriovenous malformations as Dieulafoy lesion.2 units PRBC given for low H/H. Confuse, pulled out IV and sol catheter.on soft wrist restraints. NSTEMI 2 days ago.Troponin 9. Conservative medical treatment.Troponin trending down.Post cystoscopy (evacuatio n of blood clots).As per Dr. Woodward,no invasive procedures. (ANDRE and cardiac catheterization due to underlying co morbidities. Recent troponin 7.34. trending down. Plan: Bacteremia, positive blood cultures for MRSA ID on consult Continue IV antibiotics per ID Contact isolation Heart rate stable, NSR 70's Blood pressure controlled Denies chest pain or shortness of breath On Lipitor 40 mg daily, Hydralazine IV PRN, Imdue ER 30 mg daily, Synthroid 25 mcg daily,Lopressor 12.5 mg BID, Flomax 0.4 mg daily, Nicoderm patch daily. Continue current treatment Continue current medications Fall precaution Aspiration precaution Chart reviewed Will follow up Plan and treatment discussed with Dr. Woodward
[2018-01-04 06:44] LABS: HEMOGLOBIN 7.7 g/dL (14.0-18.0); MEAN CELL VOLUME 88.8 fl (80.0-105.0); MEAN CORPUSCULAR HGB CONC 30.4 g/dl (31.0-37.0); MEAN PLATELET VOLUME 11.1 fl (7.0-11.0); RBC 2.85 10^6/uL (3.5-6.1); RED CELL DISTRIBUTION WIDTH 18.6 % (11.5-14.5); WHITE BLOOD COUNT 7.8 10^3/ul (4.5-11.0)
[2018-01-04 07:21] LABS: CALCIUM 9.5 mg/dL (8.4-10.5)
[2018-01-04] MEDS: Arformoterol 15 mcg/2 ml Inh Sol IH SCH ×2 (07:43→19:40)
[2018-01-04] MEDS: Budesonide 0.5 mg/2 ml Inhal Susp UD IH SCH ×2 (07:43→19:40)
--- NOTE | 2018-01-04 08:22 | CP.PCM.PN ---
<Isa Stark - Last Filed: 01/04/18 09:10> Subjective - Date & Time of Evaluation Date of Evaluation: 01/04/18 Time of Evaluation: 07:00 - Subjective Subjective: PGY-3 Nephrology Progress Note for Dr. Andrade Patient seen and examined at bedside. Patient is sleeping in bed with nasal cannula. No reported acute events over night. Patient denies chest pain, sob, abd pain. Mann in place. Objective - Vital Signs/Intake and Output Vital Signs (last 24 hours): Temp Pulse Resp BP Pulse Ox 97.0 F L 57 L 18 135/56 L 100 01/04/18 06:00 01/04/18 06:00 01/04/18 06:00 01/04/18 06:00 01/04/18 06:00 Intake and Output: 01/04/18 01/04/18 06:59 18:59 Intake Total 120 Balance 120 - Medications Medications: Current Medications Acetaminophen (Tylenol 325mg Tab) 650 mg PO Q6H PRN PRN Reason: Fever >100.4 F Last Admin: 12/31/17 01:25 Dose: 650 mg Albuterol/Ipratropium (Duoneb 3 Mg/0.5 Mg (3 Ml) Ud) 3 ml IH [id number] PRN PRN Reason: Shortness of Breath Last Admin: 12/26/17 19:55 Dose: 3 ml Albuterol/Ipratropium (Duoneb 3 Mg/0.5 Mg (3 Ml) Ud) 3 ml IH [id number] [facility] Last Admin: 01/04/18 07:43 Dose: 3 ml Arformoterol Tartrate (Brovana) 15 mcg IH [id number] [facility] Last Admin: 01/04/18 07:43 Dose: 15 mcg Aspirin (Ecotrin) 81 mg PO DAILY [facility] Last Admin: 01/03/18 10:49 Dose: 81 mg Atorvastatin Calcium (Lipitor) 40 mg PO HS [facility] Last Admin: 01/02/18 22:20 Dose: 40 mg Budesonide (Pulmicort Respules) 0.5 mg IH [id number] [facility] Last Admin: 01/04/18 07:43 Dose: 0.5 mg Calcitriol (Rocaltrol) 0.5 mcg PO DAILY [facility] Last Admin: 01/03/18 10:48 Dose: 0.5 mcg Gabapentin (Neurontin) 300 mg PO BID [facility]; Protocol Last Admin: 01/03/18 17:29 Dose: 300 mg Hydralazine HCl (Apresoline) 10 mg PO QID PRN PRN Reason: for SBP>160 Last Admin: 12/29/17 04:48 Dose: 10 mg Daptomycin 500 mg/ Sodium (Chloride) 100 mls @ 200 mls/hr IV Q48H [facility] Stop: 01/06/18 10:16 Last Admin: 01/03/18 10:47 Dose: 200 mls/hr Iron Sucrose 100 mg/ Sodium (Chloride) 105 mls @ 210 mls/hr IVPB DAILY [facility] Stop: 01/04/18 10:29 Last Admin: 01/03/18 10:48 Dose: 210 mls/hr Isosorbide Mononitrate (Imdur Er) 30 mg PO DAILY [facility] Last Admin: 01/03/18 10:48 Dose: 30 mg Levothyroxine Sodium (Synthroid) 25 mcg PO 0600 [facility] Last Admin: 01/03/18 06:32 Dose: 25 mcg Memantine (Namenda) 10 mg PO DAILY [facility] Last Admin: 01/03/18 10:48 Dose: 10 mg Metoprolol Tartrate (Lopressor) 12.5 mg PO BID [facility] Last Admin: 01/03/18 17:29 Dose: 12.5 mg Montelukast Sodium (Singulair) 10 mg PO HS [facility] Last Admin: 01/02/18 22:20 Dose: 10 mg Pantoprazole Sodium (Protonix Ec Tab) 20 mg PO 0600 [facility] Last Admin: 01/03/18 06:32 Dose: 20 mg Tamsulosin HCl (Flomax) 0.4 mg PO DAILY [facility] Last Admin: 01/03/18 10:49 Dose: 0.4 mg - Labs Labs: 01/04/18 05:35 01/04/18 05:35 PT 14.2 SECONDS (9.4-12.5) H 12/29/17 10:05 INR 1.23 12/29/17 10:05 APTT 29.6 Seconds (25.1-36.5) 12/29/17 10:05 - Additional Findings Additional findings: Mann in place with kelsi urine - Constitutional Appears: No Acute Distress - Head Exam Head Exam: ATRAUMATIC, NORMAL INSPECTION, NORMOCEPHALIC - Eye Exam Eye Exam: EOMI, Normal appearance. absent: Conjunctival injection, - ENT Exam ENT Exam: Mucous Membranes Moist, Normal External Ear Exam. absent: Mucous Membranes Dry - Neck Exam Neck Exam: Normal Inspection. absent: Meningismus, Tenderness - Respiratory Exam Respiratory Exam: Clear to Ausculation Bilateral, NORMAL BREATHING PATTERN. absent: Accessory Muscle Use, Chest Wall Tenderness, Decreased Breath Sounds, Rales, Respiratory Distress - Cardiovascular Exam Cardiovascular Exam: REGULAR RHYTHM, regular rate. absent: Bradycardia, Tachycardia, Murmur - GI/Abdominal Exam GI & Abdominal Exam: Soft, Normal Bowel Sounds. absent: Distended, Firm, Guarding, Rigid, Tenderness - Extremities Exam Extremities Exam: Normal Inspection. absent: Calf Tenderness, Joint Swelling, Pedal Edema, Tenderness - Neurological Exam Neurological Exam: Alert, Awake, CN II-XII Intact. absent: Oriented x3 - Psychiatric Exam Psychiatric exam: Normal Affect, Normal Mood. absent: Agitated, Anxious - Skin Skin Exam: Dry, Intact, Normal Color, Warm Assessment and Plan - Assessment and Plan (Free Text) Assessment: UZAIR on CKD stage IV- improved fever with leukocytosis secondary to s. 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 No plan for renal replacement at this time. blood culture positive for MRSA. Creatinine stable, improved form yesterday. continue calcitriol for secondary hyperparathyriodism. Patient received Venofer for iron deficiency and a total 6 units prbc for blood loss. BP stable. ID following for fevers and bactremia. GI following for blood loss and AVM. Will continue to monitor kidney function and electrolytes. Continue to monitor I&O. Case discussed and reviewed with Dr. Andrade. <Spencer Andrade - Last Filed: 01/04/18 21:08> Objective - Vital Signs/Intake and Output Vital Signs (last 24 hours): Temp Pulse Resp BP Pulse Ox 98.4 F 101 H 20 158/66 H 100 01/04/18 18:00 01/04/18 18:00 01/04/18 18:00 01/04/18 18:00 01/04/18 06:00 Intake and Output: 01/04/18 01/05/18 18:59 06:59 Intake Total 360 Output Total 600 Balance -240 - Medications Medications: Current Medications Acetaminophen (Tylenol 325mg Tab) 650 mg PO Q6H PRN PRN Reason: Fever >100.4 F Last Admin: 12/31/17 01:25 Dose: 650 mg Albuterol/Ipratropium (Duoneb 3 Mg/0.5 Mg (3 Ml) Ud) 3 ml IH [id number] PRN PRN Reason: Shortness of Breath Last Admin: 12/26/17 19:55 Dose: 3 ml Albuterol/Ipratropium (Duoneb 3 Mg/0.5 Mg (3 Ml) Ud) 3 ml IH [id number] [facility] Last Admin: 01/04/18 19:40 Dose: 3 ml Arformoterol Tartrate (Brovana) 15 mcg IH [id number] [facility] Last Admin: 01/04/18 19:40 Dose: 15 mcg Aspirin (Ecotrin) 81 mg PO DAILY [facility] Last Admin: 01/04/18 10:57 Dose: 81 mg Atorvastatin Calcium (Lipitor) 40 mg PO HS [facility] Last Admin: 01/02/18 22:20 Dose: 40 mg Budesonide (Pulmicort Respules) 0.5 mg IH [id number] [facility] Last Admin: 01/04/18 19:40 Dose: 0.5 mg Calcitriol (Rocaltrol) 0.5 mcg PO DAILY [facility] Last Admin: 01/04/18 10:58 Dose: 0.5 mcg Furosemide (Lasix) 40 mg PO DAILY [facility] Last Admin: 01/04/18 17:05 Dose: Not Given Gabapentin (Neurontin) 300 mg PO BID [facility]; Protocol Last Admin: 01/04/18 17:06 Dose: Not Given Hydralazine HCl (Apresoline) 10 mg PO QID PRN PRN Reason: for SBP>160 Last Admin: 12/29/17 04:48 Dose: 10 mg Daptomycin 500 mg/ Sodium (Chloride) 100 mls @ 200 mls/hr IV Q48H [facility] Stop: 01/06/18 10:16 Last Admin: 01/03/18 10:47 Dose: 200 mls/hr Isosorbide Mononitrate (Imdur Er) 30 mg PO DAILY [facility] Last Admin: 01/04/18 10:57 Dose: 30 mg Levothyroxine Sodium (Synthroid) 25 mcg PO 0600 [facility] Last Admin: 01/03/18 06:32 Dose: 25 mcg Memantine (Namenda) 10 mg PO DAILY [facility] Last Admin: 01/04/18 10:58 Dose: 10 mg Metoprolol Tartrate (Lopressor) 12.5 mg PO BID [facility] Last Admin: 01/04/18 17:05 Dose: Not Given Montelukast Sodium (Singulair) 10 mg PO HS [facility] Last Admin: 01/02/18 22:20 Dose: 10 mg Pantoprazole Sodium (Protonix Ec Tab) 20 mg PO 0600 [facility] Last Admin: 01/03/18 06:32 Dose: 20 mg Tamsulosin HCl (Flomax) 0.4 mg PO DAILY [facility] Last Admin: 01/04/18 10:57 Dose: 0.4 mg - Labs Labs: 01/04/18 05:35 01/04/18 05:35 PT 14.2 SECONDS (9.4-12.5) H 12/29/17 10:05 INR 1.23 12/29/17 10:05 APTT 29.6 Seconds (25.1-36.5) 12/29/17 10:05 Assessment and Plan - Assessment and Plan (Free Text) Assessment: Pt seen and examined. I have reviewed the note of the medical service technician and agree with it. I have discussed the assessment and plan with the resident. I have reviewed the patient's labs and medications. Pt with UZAIR that has improved. Cr is stable. Follow H/H due to anemia from blood loss.
--- NOTE | 2018-01-04 09:08 | CT ---
Date of service: 01/04/2018 PROCEDURE: CT HEAD WITHOUT CONTRAST. HISTORY: ams COMPARISON: Noncontrast head CT performed 11/09/16 TECHNIQUE: Axial computed tomography images were obtained through the head/brain without intravenous contrast. Radiation dose: Total exam DLP = 905.42 mGy-cm. This CT exam was performed using one or more of the following dose reduction techniques: Automated exposure control, adjustment of the mA and/or kV according to patient size, and/or use of iterative reconstruction technique. FINDINGS: HEMORRHAGE: No intracranial hemorrhage. BRAIN: Diffuse atrophy with prominence of the ventricles and sulci noted. No mass effect or edema. Chronic appearing lacunar infarcts left basal ganglia and right thalamus. Scattered periventricular and subcortical white matter hypodensities, which are nonspecific, but often seen with chronic microvascular ischemic disease. Chronic appearing encephalomalacia, left parietal lobe. Please note that MRI with diffusion imaging is more sensitive in the detection of acute ischemic event. VENTRICLES: No hydrocephalus. CALVARIUM: Unremarkable. PARANASAL SINUSES: Unremarkable as visualized. No significant inflammatory changes. MASTOID AIR CELLS: Unremarkable as visualized. No inflammatory changes. OTHER FINDINGS: None. IMPRESSION: Generalized atrophy. Nonspecific white matter changes. Chronic appearing lacunar infarcts involving the right thalamus and left basal ganglia. Chronic appearing encephalomalacia, left parietal lobe.
[2018-01-04 09:15] LABS: ARTERIAL BLOOD GAS HCO3 22.6 mmol/L (21-28); ARTERIAL BLOOD GAS O2 SAT 96.1 % (95-98); ARTERIAL BLOOD GAS PCO2 40 mm/Hg (35-45); ARTERIAL BLOOD GAS PH 7.36 (7.35-7.45); ARTERIAL BLOOD GAS TCO2 23.8 mmol.L (22-28)
--- NOTE | 2018-01-04 10:21 | CP.PCM.PN ---
<Billy Ray - Last Filed: 01/04/18 11:41> Subjective - Date & Time of Evaluation Date of Evaluation: 01/04/18 Time of Evaluation: 10:16 - Subjective Subjective: Jai Ray IM Resident - GI Progress Note Patient seen and examined this AM. No acute events reported overnight. No acute events reported overnight. Patient denies chest pain, abdominal pain, fever, chills. Objective - Vital Signs/Intake and Output Vital Signs (last 24 hours): Temp Pulse Resp BP Pulse Ox 97.0 F L 57 L 18 135/56 L 100 01/04/18 06:00 01/04/18 06:00 01/04/18 06:00 01/04/18 06:00 01/04/18 06:00 Intake and Output: 01/04/18 01/04/18 06:59 18:59 Intake Total 120 Balance 120 - Medications Medications: Current Medications Acetaminophen (Tylenol 325mg Tab) 650 mg PO Q6H PRN PRN Reason: Fever >100.4 F Last Admin: 12/31/17 01:25 Dose: 650 mg Albuterol/Ipratropium (Duoneb 3 Mg/0.5 Mg (3 Ml) Ud) 3 ml IH [id number] PRN PRN Reason: Shortness of Breath Last Admin: 12/26/17 19:55 Dose: 3 ml Albuterol/Ipratropium (Duoneb 3 Mg/0.5 Mg (3 Ml) Ud) 3 ml IH [id number] [facility] Last Admin: 01/04/18 07:43 Dose: 3 ml Arformoterol Tartrate (Brovana) 15 mcg IH [id number] [facility] Last Admin: 01/04/18 07:43 Dose: 15 mcg Aspirin (Ecotrin) 81 mg PO DAILY [facility] Last Admin: 01/03/18 10:49 Dose: 81 mg Atorvastatin Calcium (Lipitor) 40 mg PO HS [facility] Last Admin: 01/02/18 22:20 Dose: 40 mg Budesonide (Pulmicort Respules) 0.5 mg IH [id number] [facility] Last Admin: 01/04/18 07:43 Dose: 0.5 mg Calcitriol (Rocaltrol) 0.5 mcg PO DAILY [facility] Last Admin: 01/03/18 10:48 Dose: 0.5 mcg Gabapentin (Neurontin) 300 mg PO BID [facility]; Protocol Last Admin: 01/03/18 17:29 Dose: 300 mg Hydralazine HCl (Apresoline) 10 mg PO QID PRN PRN Reason: for SBP>160 Last Admin: 12/29/17 04:48 Dose: 10 mg Daptomycin 500 mg/ Sodium (Chloride) 100 mls @ 200 mls/hr IV Q48H [facility] Stop: 01/06/18 10:16 Last Admin: 01/03/18 10:47 Dose: 200 mls/hr Iron Sucrose 100 mg/ Sodium (Chloride) 105 mls @ 210 mls/hr IVPB DAILY [facility] Stop: 01/04/18 10:29 Last Admin: 01/03/18 10:48 Dose: 210 mls/hr Isosorbide Mononitrate (Imdur Er) 30 mg PO DAILY [facility] Last Admin: 01/03/18 10:48 Dose: 30 mg Levothyroxine Sodium (Synthroid) 25 mcg PO 0600 [facility] Last Admin: 01/03/18 06:32 Dose: 25 mcg Memantine (Namenda) 10 mg PO DAILY [facility] Last Admin: 01/03/18 10:48 Dose: 10 mg Metoprolol Tartrate (Lopressor) 12.5 mg PO BID [facility] Last Admin: 01/03/18 17:29 Dose: 12.5 mg Montelukast Sodium (Singulair) 10 mg PO HS [facility] Last Admin: 01/02/18 22:20 Dose: 10 mg Pantoprazole Sodium (Protonix Ec Tab) 20 mg PO 0600 [facility] Last Admin: 01/03/18 06:32 Dose: 20 mg Tamsulosin HCl (Flomax) 0.4 mg PO DAILY [facility] Last Admin: 01/03/18 10:49 Dose: 0.4 mg - Labs Labs: 01/04/18 05:35 01/04/18 05:35 PT 14.2 SECONDS (9.4-12.5) H 12/29/17 10:05 INR 1.23 12/29/17 10:05 APTT 29.6 Seconds (25.1-36.5) 12/29/17 10:05 - Constitutional Appears: No Acute Distress - Head Exam Head Exam: ATRAUMATIC, NORMOCEPHALIC - Eye Exam Eye Exam: EOMI, PERRL - ENT Exam ENT Exam: Mucous Membranes Moist - Cardiovascular Exam Cardiovascular Exam: REGULAR RHYTHM, +S1, +S2 - GI/Abdominal Exam GI & Abdominal Exam: Soft, Normal Bowel Sounds - Neurological Exam Neurological Exam: Alert, Awake Additional comments: motor and sensory grossly intact - Psychiatric Exam Additional comments: dementia Assessment and Plan - Assessment and Plan (Free Text) Assessment: 87 year old male with past medical history of COPD, CHF s/p AICD, HTN, CAD s/p CABG, CKD stage IV, dementia, iron deficiency anemia, hx of gastritis, HLD with severe anemia. Patient s/p colonoscopy and EGD showing multiple non bleeding AVM. Patient with no reports of blood per rectum or hemoptysis Plan: Aemia likely secondary to urethra trauma Acute blood loss anemia due to GI bleed NSTEMI-cardiology following Sepsis secondary to MSSA bacteremia with unclear source Demenita HTN HLD CHF s/p AICD (EF of 55%) - EGD 12/25/17 Shows gastric and duodenal bulb AVMs. Gastric AVM had active bleeding and was injected with epi and clipped, f/u Pathology - Abd/Pelvis with PO contrast: No obvious GI mass. - Monitor H/H with serial CBC, transfuse if symptomatic or hgb<7 - ID following for bacteremia, ruling out endocarditis vs. pacemaker infection vs. HCAP - Antibiotics as per ID, Daptomycin, cefepime - Continue PPI - Further recommendations per Dr. Murdock <Ramon Murdock V - Last Filed: 01/06/18 22:33> Objective - Vital Signs/Intake and Output Vital Signs (last 24 hours): Temp Pulse Resp BP Pulse Ox 99.4 F 132 H 19 129/63 100 01/05/18 18:00 01/05/18 21:05 01/05/18 18:00 01/05/18 21:34 01/04/18 06:00 - Medications Medications: Current Medications Acetaminophen (Tylenol 325mg Tab) 650 mg PO Q6H PRN PRN Reason: Fever >100.4 F Last Admin: 12/31/17 01:25 Dose: 650 mg Albuterol/Ipratropium (Duoneb 3 Mg/0.5 Mg (3 Ml) Ud) 3 ml IH [id number] PRN PRN Reason: Shortness of Breath Last Admin: 12/26/17 19:55 Dose: 3 ml Albuterol/Ipratropium (Duoneb 3 Mg/0.5 Mg (3 Ml) Ud) 3 ml IH [id number] [facility] Last Admin: 01/05/18 19:49 Dose: 3 ml Arformoterol Tartrate (Brovana) 15 mcg IH [id number] [facility] Last Admin: 01/05/18 19:49 Dose: 15 mcg Aspirin (Ecotrin) 81 mg PO DAILY [facility] Last Admin: 01/05/18 09:14 Dose: Not Given Atorvastatin Calcium (Lipitor) 40 mg PO HS [facility] Last Admin: 01/04/18 22:27 Dose: Not Given Budesonide (Pulmicort Respules) 0.5 mg IH [id number] [facility] Last Admin: 01/05/18 19:49 Dose: 0.5 mg Calcitriol (Rocaltrol) 0.5 mcg PO DAILY [facility] Last Admin: 01/05/18 09:15 Dose: Not Given Furosemide (Lasix) 40 mg PO DAILY [facility] Last Admin: 01/05/18 09:14 Dose: Not Given Gabapentin (Neurontin) 300 mg PO BID [facility]; Protocol Last Admin: 01/05/18 17:21 Dose: Not Given Daptomycin 500 mg/ Sodium (Chloride) 100 mls @ 200 mls/hr IV Q48H [facility] Stop: 01/06/18 10:16 Last Admin: 01/05/18 19:00 Dose: 200 mls/hr diltiaZEM IVPB 100mg in NS (Cardizem 100mg In Ns) 100 mls @ 5 mls/hr IV .Q20H PRN; Protocol PRN Reason: TITRATE PER MD ORDER Isosorbide Mononitrate (Imdur Er) 30 mg PO DAILY [facility] Last Admin: 01/05/18 09:14 Dose: Not Given Levothyroxine Sodium (Synthroid) 25 mcg PO 0600 [facility] Last Admin: 01/05/18 06:08 Dose: Not Given Memantine (Namenda) 10 mg PO DAILY [facility] Last Admin: 01/05/18 09:15 Dose: Not Given Metoprolol Tartrate (Lopressor) 12.5 mg PO BID [facility] Last Admin: 01/05/18 17:21 Dose: Not Given Montelukast Sodium (Singulair) 10 mg PO HS [facility] Last Admin: 01/05/18 21:34 Dose: Not Given Pantoprazole Sodium (Protonix Ec Tab) 20 mg PO 0600 [facility] Last Admin: 01/05/18 06:07 Dose: Not Given Tamsulosin HCl (Flomax) 0.4 mg PO DAILY [facility] Last Admin: 01/05/18 09:14 Dose: Not Given - Labs Labs: 01/05/18 07:00 01/05/18 07:00 PT 14.5 SECONDS (9.4-12.5) H 01/05/18 07:00 INR 1.26 01/05/18 07:00 APTT 32.8 Seconds (25.1-36.5) 01/05/18 07:00 Attending/Attestation - Attestation I have personally seen and examined this patient.: Yes I have fully participated in the care of the patient.: Yes I have reviewed all pertinent clinical information, including history, physical exam and plan: Yes Notes (Text): This is a delayed addendum to GI followup report dictated by the Veneer Patcher. The patient was seen and evaluated earlier. Medical records, lab studies, imagings were reviewed. Last 24 hours events reviewed. Agreed with the above treatment plan as outlined in Veneer Patcher 's notes with the justin tion of the following CT scan was reviewed Followup hb transfuse Continue PPI Continue antibiotics as per ID Discussed with PCP 01/05/18 21:45 01/06/18 22:31
--- NOTE | 2018-01-04 10:40 | PN ---
DATE: 01/03/2018 LOCATION: The patient is in room 263, bed 1. REASON FOR CONSULTATION AND FOLLOWUP: Positive troponin, end-stage renal disease, delirious, dementia, was on 2-point positive restraints. This is an addendum to the progress note already dictated by Marely Padilla. SUBJECTIVE: The patient is lying flat in bed without chest pain, shortness of breath or palpitation. The patient was found to have troponin elevated, but due to kidney status and also the patient had dementia, so it was decided to treat the patient medically. The patient is asymptomatic from cardiac point of view at this present moment. We will continue beta blockers. Also, the patient had earlier sepsis and not a candidate for ANDRE. Dr. Woodward already discussed with Dr. Fairbanks, Infectious Disease specialist and we will continue to treat the patient medically at present point. The patient is asymptomatic from cardiac point of view. Radha Jacobson MD
--- NOTE | 2018-01-04 10:49 | CT ---
Date of service: 01/04/2018 CT chest without IV contrast Indication: Tachypnea Technique: Contiguous axial images were obtained through the chest without intravenous contrast enhancement. Sagittal and coronal reconstructions were generated and reviewed. This CT exam was performed using 1 or more of the following dose reduction techniques: Automated exposure control, adjustment of the MAA and/or kV according to patient size, and/or use of iterative reconstruction technique. Radiation dose (DLP): 659.27 MGy-cm. Comparison: Chest x-ray performed 12/30/17 Findings: Visualized portions of the inferior thyroid gland appear unremarkable. Prevascular lymph nodes, nonspecific. Cardiomegaly. Single lead left-sided AICD. Median sternotomy wires. Dense atherosclerotic calcifications of the aorta. Small to moderate left and small right pleural effusions and associated consolidations. Patchy infiltrate, left upper lobe. No pneumothorax. Limited visualization of the noncontrast upper abdomen; partially imaged 3.4 cm left renal cyst. Bilateral adrenal gland hypertrophy. Probable cholelithiasis. Degenerative changes. Impression: Prevascular lymph nodes, nonspecific. Cardiomegaly. Single lead left-sided AICD. Median sternotomy wires. Dense atherosclerotic calcifications of the aorta. Small to moderate left and small right pleural effusions and associated consolidations. Patchy infiltrate, left upper lobe. Recommend follow-up to resolution. Limited visualization of the noncontrast upper abdomen; partially imaged 3.4 cm left renal cyst. Bilateral adrenal gland hypertrophy. Probable cholelithiasis.
--- NOTE | 2018-01-04 15:41 | RAD ---
HISTORY: compare to see im provement of CHF. COMPARISON: Chest x-ray performed 12/30/17 TECHNIQUE: Chest, one view. FINDINGS: LUNGS: Moderate pulmonary venous congestion. PLEURA: No significant pleural effusion identified. No definite pneumothorax . CARDIOVASCULAR: Median sternotomy wires with evidence of CABG. Cardiomegaly. Single lead left-sided AICD. Atherosclerotic calcification of the aorta present. OSSEOUS STRUCTURES: Degenerative changes. VISUALIZED UPPER ABDOMEN: Unremarkable. OTHER FINDINGS: None. IMPRESSION: Moderate pulmonary venous congestion, stable to slightly increased in extent as compared to prior study performed 12/30/17. Cardiomegaly. Left-sided AICD.
--- NOTE | 2018-01-04 22:14 | PN ---
DATE: 01/03/2018 PULMONARY PROGRESS NOTE REFERRING PHYSICIAN: Irasema Rivas MD SUBJECTIVE: The patient is lying with the bed head 45 degrees. Feels okay. Denies any cough or shortness of breath. No chest pain. No nausea. No more hematuria. He has a Mann catheter with clear urine. No leg swelling. OBJECTIVE: GENERAL: In no acute distress. VITAL SIGNS: Temperature is 98, heart rate 82, respiratory rate is 18, blood pressure of 135/65, pulse ox 94% on 2 liters nasal cannula. HEENT: Moist mucous membranes. No ulcer or thrush noted. NECK: Supple. No JVD. LUNGS: He has fair airflow with few rhonchi. HEART: S1 and S2. ABDOMEN: Soft, nontender. No organomegaly. EXTREMITIES: There is no edema. NEUROLOGIC: Awake and alert, follows simple commands. MEDICATIONS: He is on hydralazine 10 mg four times a day p.r.n., Brovana inhaled twice a day, daptomycin 500 mg every 48 hours, albuterol/Atrovent every 4 hours p.r.n. and every 6 hours [id number], Ecotrin 81 mg daily, Flomax 0.4 mg daily, Imdur ER 30 mg daily, iron sucrose 100 mg daily, Lipitor 40 mg at bedtime, metoprolol tartrate 12.5 mg twice a day, Namenda 10 mg daily, Neurontin 300 mg b.i.d., Nicoderm patch daily, Protonix 40 mg daily, Pulmicort inhaled twice a day, calcitriol 0.5 mcg p.o. daily, Singulair 10 mg daily, Synthroid 25 mcg daily, Tylenol p.r.n. basis. LABORATORY DATA: Shows hemoglobin 8.2, hematocrit 27.3, WBC is 7.2, platelet count is 168. Sodium 141, potassium 5.2, chloride 113, bicarbonate 20, BUN 46, creatinine 2.5, glucose is 86, calcium is 9.2. Blood culture has staph aureus. IMPRESSION AND PLAN: Sepsis, has methicillin-resistant Staphylococcus aureus bacteremia, also has Staphylococcus related urinary tract infection, status post hematuria, anemia requiring transfusion and iron supplement, chronic obstructive lung disease, cardiomyopathy with systolic and diastolic dysfunction, pulmonary hypertension, coronary artery disease, hyperlipidemia, gastric angiopathy, oropharyngeal dysphagia, on modified diet. Pulmonary point of view, doing okay. Bronchodilator, aspiration precaution. Gastric prophylaxis. SCD for DVT prophylaxis. Keep head elevated at 45 degrees. May get him out of bed to his chair. Start therapy at bedside. Followup CBC in the morning. Thank you and we will follow with you. Radha Vail MD
--- NOTE | 2018-01-04 23:12 | PN ---
DATE: 01/04/2018 SUBJECTIVE: The patient is in bed, in no acute distress, was seen earlier this morning. PHYSICAL EXAMINATION: VITAL SIGNS: Temperature is 98, blood pressure is 140/60, respiratory rate of 18, heart rate of 98. HEENT: Unremarkable. NECK: Supple. LUNGS: Have decreased breath sounds. HEART: Normal S1 and S2. ABDOMEN: Soft, nontender. LABORATORY EXAMINATION: Reveals a white count of 7.8, hemoglobin of 7, platelets of 168. BUN of 38, creatinine of 2.1. Procalcitonin is 0.06. Vancomycin level is 15.7. Immunology is noted. Serology is reviewed. Microbiology reveals the blood cultures have no growth from 01/03/2018, from yesterday. Multiple blood cultures are positive. Review of orders reveals the patient to be on daptomycin. Patient had a chest x-ray today, moderate pulmonary congestion. Patient had a CAT scan of the chest, moderate left and small right pleural effusion and a CAT scan of the head. ASSESSMENT AND PLAN: This is an 87-year-old with coronary artery disease, coronary artery bypass graft, pacemaker, chronic obstructive lung disease, cardiomyopathy, hypertension, pulmonary hypertension, diastolic congestive heart failure, dementia, admitted with sepsis with idiopathic thrombocytopenic purpura and now with methicillin-sensitive Staphylococcus aureus bacteremia with [id number] myocardial infarction and concern about deep-seated infection, concern about pacemaker versus endocarditis. Patient with sepsis and methicillin-sensitive Staphylococcus aureus bacteremia. Today is day #2 of at least 28 days of daptomycin, vancomycin, CBC, SMA-18, sedimentation rate, C-reactive protein and CPK. We will follow with you. Patient's last CPK was 383 two days ago. Thor Fairbanks MD
[2018-01-05] MEDS: Albuterol-Ipratrop 3 mg / 0.5 (3 ml) UD IH SCH ×4 (01:25→19:49)
--- NOTE | 2018-01-05 02:22 | PN ---
DATE: 01/04/2018 PULMONARY PROGRESS NOTE REFERRING PHYSICIAN: Irasema Rivas MD. SUBJECTIVE: The patient is lying in the bed, head at 45 degrees. Nursing staff at bedside. Apparently, he was a little lethargic today and CT of the head was done which was told no change. He is a little sleepy, arousable. Does follow simple commands. No hemoptysis or hematemesis. Still has a Mann catheter with blood-tinged urine. No leg swelling. PHYSICAL EXAMINATION: GENERAL: In no acute distress. VITAL SIGNS: Temperature is 98, heart rate is 97, respiratory rate is 20, blood pressure 158/66, pulse ox 100% on 5 liters nasal cannula. HEENT: Moist mucous membranes. Crowded airway. Mallampati score is 4. NECK: Supple. No JVD. LUNGS: Have a few scattered rhonchi, crackles at the bases. HEART: S1 and S2. ABDOMEN: Soft, nontender, no organomegaly. EXTREMITIES: Not much edema. NEUROLOGIC: Awake, alert, and follows simple commands. MEDICATIONS: He is on hydralazine 10 mg four times a day p.r.n., Brovana inhaled twice a day, daptomycin 500 mg every 48 hours, DuoNeb every 4 hours p.r.n. and every 6 hours [id number], Ecotrin 81 mg daily, Flomax 0.4 mg daily, Imdur ER 30 mg daily, Lasix 40 mg daily, Lipitor 40 mg at nighttime, metoprolol tartrate 12.5 mg twice a day, Namenda is at 10 mg daily, gabapentin 300 mg twice a day, Protonix is 20 mg daily, Pulmicort inhaled twice a day, Singulair 10 mg daily, Synthroid 25 mcg daily, Tylenol p.r.n. basis. LABORATORY DATA: Shows hemoglobin 7.7, hematocrit 25.3, WBC 7.8, platelet is 168. Has ABG done which shows pH 7.36, pCO2 of 40, pO2 of 63. Sodium 142, potassium 4.6, chloride 113, bicarbonate 23, BUN 38, creatinine 2.1, glucose 87, calcium is 9.5. Repeat blood culture, there is no growth. Previous culture had MRSA in the blood. Has a CAT scan of the head done this morning, shows generalized atrophy. No specified white matter changes, chronic-appearing decubiti infarct involving the right thalamus and left basal ganglia. There is chronic-appearing encephalomalacia left parietal lobe. Has a CT chest done which shows perivascular lymph node, nonspecific cardiomegaly, single lead AICD, median sternotomy wires, [id number] left and a small right pleural effusion associated with some atelectasis and patchy infiltrate, left upper lobe infiltrate, bilateral adrenal gland hypertrophy, cholelithiasis. Had a chest x-ray done this afternoon shows venous congestion. IMPRESSION AND PLAN: Bacteremia, probably genitourinary origin, had a trauma to the prostate and urethra with pulling the Mann catheter. Hematuria is improved. Still has severe anemia. Has some change in mental status. CAT scan has been unremarkable. Chronic obstructive lung disease, cardiomyopathy with diastolic and systolic dysfunction, pulmonary hypertension, coronary artery disease, hyperlipidemia, gastric angiopathy, oropharyngeal dysphagia, on modified diet. He probably needs echocardiogram/transesophageal echo to assure there is no endocarditis, being followed by Cardiology. We will keep watching closely. Continue nebulizer treatment. May use BiPAP while sleeping. Gastric prophylaxis. SCD to lower extremity. Follow up labs in the morning. May need MRI of the brain. Thank you and we will follow with you. Radha Vail MD
[2018-01-05] MEDS: Pantoprazole 20 mg EC Tab PO SCH (06:07)
[2018-01-05] MEDS: Levothyroxine 25 MCG TAB PO SCH (06:08)
[2018-01-05] MEDS: Arformoterol 15 mcg/2 ml Inh Sol IH SCH ×2 (07:21→19:49)
[2018-01-05] MEDS: Budesonide 0.5 mg/2 ml Inhal Susp UD IH SCH ×2 (07:21→19:49)
--- NOTE | 2018-01-05 07:53 | CP.PCM.PN ---
Subjective - Date & Time of Evaluation Date of Evaluation: 01/05/18 Time of Evaluation: 06:25 - Subjective Subjective: Awake,No distress, lying in bed Reason for consultation and follow up: Cardiac evaluation for elevated BNP, rule out congestive heart failure, NSTEMI, Seen and examined by me and Dr. Jacobson Objective - Vital Signs/Intake and Output Vital Signs (last 24 hours): Temp Pulse Resp BP Pulse Ox 98.4 F 103 H 20 158/66 H 100 01/04/18 18:00 01/04/18 23:30 01/04/18 18:00 01/04/18 18:00 01/04/18 06:00 Intake and Output: 01/05/18 01/05/18 06:59 18:59 Intake Total 0 Output Total 700 Balance -700 - Medications Medications: Current Medications Acetaminophen (Tylenol 325mg Tab) 650 mg PO Q6H PRN PRN Reason: Fever >100.4 F Last Admin: 12/31/17 01:25 Dose: 650 mg Albuterol/Ipratropium (Duoneb 3 Mg/0.5 Mg (3 Ml) Ud) 3 ml IH [id number] PRN PRN Reason: Shortness of Breath Last Admin: 12/26/17 19:55 Dose: 3 ml Albuterol/Ipratropium (Duoneb 3 Mg/0.5 Mg (3 Ml) Ud) 3 ml IH [id number] [facility] Last Admin: 01/05/18 07:22 Dose: 3 ml Arformoterol Tartrate (Brovana) 15 mcg IH [id number] [facility] Last Admin: 01/05/18 07:21 Dose: 15 mcg Aspirin (Ecotrin) 81 mg PO DAILY [facility] Last Admin: 01/04/18 10:57 Dose: 81 mg Atorvastatin Calcium (Lipitor) 40 mg PO HS [facility] Last Admin: 01/04/18 22:27 Dose: Not Given Budesonide (Pulmicort Respules) 0.5 mg IH [id number] [facility] Last Admin: 01/05/18 07:21 Dose: 0.5 mg Calcitriol (Rocaltrol) 0.5 mcg PO DAILY [facility] Last Admin: 01/04/18 10:58 Dose: 0.5 mcg Furosemide (Lasix) 40 mg PO DAILY [facility] Last Admin: 01/04/18 17:05 Dose: Not Given Gabapentin (Neurontin) 300 mg PO BID [facility]; Protocol Last Admin: 01/04/18 17:06 Dose: Not Given Hydralazine HCl (Apresoline) 10 mg PO QID PRN PRN Reason: for SBP>160 Last Admin: 12/29/17 04:48 Dose: 10 mg Daptomycin 500 mg/ Sodium (Chloride) 100 mls @ 200 mls/hr IV Q48H [facility] Stop: 01/06/18 10:16 Last Admin: 01/03/18 10:47 Dose: 200 mls/hr Isosorbide Mononitrate (Imdur Er) 30 mg PO DAILY [facility] Last Admin: 01/04/18 10:57 Dose: 30 mg Levothyroxine Sodium (Synthroid) 25 mcg PO 0600 [facility] Last Admin: 01/05/18 06:08 Dose: Not Given Memantine (Namenda) 10 mg PO DAILY [facility] Last Admin: 01/04/18 10:58 Dose: 10 mg Metoprolol Tartrate (Lopressor) 12.5 mg PO BID [facility] Last Admin: 01/04/18 17:05 Dose: Not Given Montelukast Sodium (Singulair) 10 mg PO HS [facility] Last Admin: 01/04/18 22:28 Dose: Not Given Pantoprazole Sodium (Protonix Ec Tab) 20 mg PO 0600 [facility] Last Admin: 01/05/18 06:07 Dose: Not Given Tamsulosin HCl (Flomax) 0.4 mg PO DAILY [facility] Last Admin: 01/04/18 10:57 Dose: 0.4 mg - Labs Labs: 01/04/18 05:35 01/04/18 05:35 PT 14.2 SECONDS (9.4-12.5) H 12/29/17 10:05 INR 1.23 12/29/17 10:05 APTT 29.6 Seconds (25.1-36.5) 12/29/17 10:05 - Constitutional Appears: Non-toxic, No Acute Distress - ENT Exam ENT Exam: Mucous Membranes Dry, Normal Exam - Cardiovascular Exam Cardiovascular Exam: REGULAR RHYTHM, +S1, +S2 Additional comments: AICD no JVD Telemetry NSR 100's - GI/Abdominal Exam GI & Abdominal Exam: Soft, Normal Bowel Sounds - Exam Additional comments: sol catheter - Extremities Exam Extremities Exam: Full ROM - Neurological Exam Neurological Exam: Alert, Awake Additional comments: confuse - Skin Skin Exam: Dry, Normal Color, Warm Assessment and Plan - Assessment and Plan (Free Text) Assessment: An 87 year old male who was brought in from [facility] due to low hemog lobin.History of COPD,chronic diastolic CHF, hypertension, hyperlipidemia, dementia,anemia, coronary artery disease post CABG,cardiomyopathy, LVEF from ECHO 20%, AICD. Admitted for acute renal injury, severe anemia. Blood transfusion of 2 units PRBC given.On iron infusion.Repeat H/H stable. Confuse, GI work up. Had EGD with clipping and biopsy , active bleeding with multiple duodenal arteriovenous malformations, gastric arteriovenous malformations as Dieulafoy lesion.2 units PRBC given for low H/H. Confuse, pulled out IV and sol catheter.on soft wrist restraints. NSTEMI 2 days ago.Troponin 9. Conservative medical treatment.Troponin trending down.Post cystoscopy (evacuation of blood clots).As per Dr. Woodward,no invasive procedures. (ANDRE and cardiac catheterization due to underlying co morbidities. Recent troponin 7.34. trending down. Bacteremia, positive blood cultures for MRSA Plan: Bacteremia, positive blood cultures for MRSA ID on consult Continue IV antibiotics per ID Contact isolation Heart rate stable Blood pressure controlled Episode of lethargy yesterday, CT of head- negative for bleeding, unremarkable Denies chest pain or shortness of breath On Lipitor 40 mg daily, Hydralazine IV PRN, Imdue ER 30 mg daily, Synthroid 25 mcg daily,Lopressor 12.5 mg BID, Flomax 0.4 mg daily, Nicoderm patch daily. Continue current treatment Continue current medications Fall precaution Aspiration precaution Chart reviewed Will follow up Plan and treatment discussed with Dr. Woodward
[2018-01-05 07:57] LABS: BASO # 0.07 K/mm3 (0.0-2.0); BASO % 0.9 % (0.0-3.0); EOS # 0.1 (0.0-0.7); EOS % 0.9 % (1.5-5.0); GRAN # 6.33 (1.4-6.5); GRAN % 78.3 % (50.0-68.0); HEMOGLOBIN 8.3 g/dL (14.0-18.0); LYMPH # 0.8 (1.2-3.4); LYMPH % 9.9 % (22.0-35.0); MEAN CELL VOLUME 89.1 fl (80.0-105.0); MEAN CORPUSCULAR HEMOGLOBIN 26.6 pg (25.0-35.0); MEAN CORPUSCULAR HGB CONC 29.9 g/dl (31.0-37.0); MEAN PLATELET VOLUME 10.7 fl (7.0-11.0); MONO # 0.8 (0.1-0.6); RBC 3.12 10^6/uL (3.5-6.1); RED CELL DISTRIBUTION WIDTH 18.8 % (11.5-14.5); WHITE BLOOD COUNT 8.1 10^3/ul (4.5-11.0)
[2018-01-05 08:01] LABS: INR 1.26; PARTIAL THROMBOPLASTIN TIME 32.8 Seconds (25.1-36.5); PROTHROMBIN TIME 14.5 SECONDS (9.4-12.5)
[2018-01-05 08:04] LABS: ALB/GLOB RATIO 0.9 (1.1-1.8); ALBUMIN 3.1 g/dL (3.0-4.8); CALCIUM 10.1 mg/dL (8.4-10.5)
--- NOTE | 2018-01-05 11:39 | PN ---
DATE: 01/05/2018 SUBJECTIVE: The patient is in bed. The patient is seen earlier this morning. Uneventful night. No fevers, no chills. No nausea or vomiting. PHYSICAL EXAMINATION: VITAL SIGNS: On exam, temperature is 98, blood pressure is 150/70, respiratory rate of 20, heart rate of 103. HEENT: Examination of HEENT is unremarkable. NECK: Supple. LUNGS: Have decreased breath sounds. HEART: Normal S1, S2. ABDOMEN: Soft, nontender. LABORATORY DATA: Laboratory examination reveals a white count of 8.1, hemoglobin of 8, platelets of 183. BUN of 32, creatinine of 2. Procalcitonin is 0.55. Urinalysis is noted. Toxicology is noted. Vancomycin random level is noted. Urine for Legionella antigen is negative. Microbiology reveals the repeat blood cultures are now negative. Review of orders reveals the patient to be on daptomycin, which we will renew. ASSESSMENT AND PLAN: An 87-year-old male with history of coronary artery disease, coronary artery bypass graft, history of pacemaker, chronic obstructive lung disease, cardiomyopathy, hypertension, pulmonary hypertension, diastolic congestive heart failure, dementia. Admitted with sepsis, idiopathic thrombocytopenic purpura, now with methicillin-resistant Staphylococcus aureus bacteremia with [id number] myocardial infarction. which is persistent. The patient's cultures have been positive. Multiple cultures are positive for methicillin-resistant Staphylococcus aureus bacteremia. Finally, the repeat cultures from 01/03/2018 have become negative. Today is day #3 of at least 28 days with CBC, SMA-18, sed rate, C-reactive protein and CPK once weekly for this persistent methicillin-resistant Staphylococcus aureus bacteremia in a patient with [id number] infarction. Concerned about pacemaker infection and endocarditis. The patient today is day #3 of at least 28 days and weekly labs and the patient's last echo was on 01/01/2018. We will repeat another echo next week. We will follow with you. Thor Fairbanks MD
--- NOTE | 2018-01-05 16:11 | CT ---
Date of service: 01/05/2018 PROCEDURE: CT HEAD WITHOUT CONTRAST. HISTORY: change in status COMPARISON: 01/04/2018 CT head TECHNIQUE: Axial computed tomography images were obtained through the head/brain without intravenous contrast. Supplemental Coronal and Sagittal projections created and reviewed. Radiation dose: Total exam DLP = 975.92 mGy-cm. This CT exam was performed using one or more of the following dose reduction techniques: Automated exposure control, adjustment of the mA and/or kV according to patient size, and/or use of iterative reconstruction technique. FINDINGS: HEMORRHAGE: No intracranial hemorrhage. BRAIN: No mass effect or edema. Cortical and cerebellar atrophy, periventricular small vessel disease. Multiple lacunar infarcts again identified. VENTRICLES: Unremarkable. No hydrocephalus. CALVARIUM: Unremarkable. PARANASAL SINUSES: Unremarkable as visualized. No significant inflammatory changes. MASTOID AIR CELLS: Unremarkable as visualized. No inflammatory changes. OTHER FINDINGS: None. IMPRESSION: No acute intracranial abnormalities. No significant findings to account for the clinical presentation. No significant interval change compared to the prior examination(s).
--- NOTE | 2018-01-05 18:27 | PN ---
DATE: 01/05/2018 PULMONARY PROGRESS NOTE REFERRING PHYSICIAN: Irasema Rivas MD. SUBJECTIVE: The patient feels okay, sleepy. No hemoptysis. No hematemesis. No hematuria. No leg swelling. PHYSICAL EXAMINATION: VITAL SIGNS: Temperature 98.5, pulse 96, blood pressure 158/76, respirations 20. GENERAL: No acute distress. HEENT: Moist mucous membrane. Crowded airway. Mallampati score is 4. NECK: Supple. No JVD. LUNGS: Few scattered rhonchi. CARDIAC: S1 and S2. ABDOMEN: Soft, nontender. EXTREMITIES: No edema. NEUROLOGICAL: Awake, alert. Follows commands. MEDICATIONS: Reviewed. Lasix 40 mg daily added to medications. No other changes. LABORATORY DATA: Reviewed. WBC 8.1, hemoglobin 8.3, hematocrit 27.8, platelets 183. ESR 95. PT 14.5, INR 1.26, APTT 32.8. Sodium 145, potassium 4.5, chloride 115, carbon dioxide 22, anion gap 13, BUN 32, creatinine 2, GFR 38, calcium 10.1, phosphorus 3.1, magnesium 2.2, bilirubin 0.7, AST 51, ALT 45, alkaline phosphatase 133. IMPRESSION AND PLAN: Bacteremia, probably genitourinary origin. Mann dislodged causing trauma to prostate and urethra. Hematuria improved. Chronic obstructive lung disease; cardiomyopathy with diastolic and systolic dysfunction; pulmonary hypertension; coronary artery disease; hyperlipidemia; gastric angiopathy; oropharyngeal dysphagia, on modified diet. Pending ANDRE to assure no vegetation. Continue inhaled bronchodilators. Encourage BiPAP while sleeping. Gastric prophylaxis. Sequential compression device to lower extremity. May use supplemental oxygen. Titrate pulse ox of greater than 90%. This patient was examined with Dr. Vail and discussed assessed and plan as described above. Thank you for this consult and we will follow with you. UYEN Alberto MD [id number]
[2018-01-05] MEDS: DAPTOmycin 500 MG in Sodium Chloride 0.9% 100 ML IV SCH (19:00)
[2018-01-05] MEDS ORDERED: diltiaZEM IVPB 100mg in NS 100 ML IV PRN (21:02)
[2018-01-05 21:10] LABS: ARTERIAL BLOOD GAS HCO3 20.4 mmol/L (21-28); ARTERIAL BLOOD GAS O2 SAT 98.4 % (95-98); ARTERIAL BLOOD GAS PCO2 37 mm/Hg (35-45); ARTERIAL BLOOD GAS PH 7.35 (7.35-7.45); ARTERIAL BLOOD GAS TCO2 21.5 mmol.L (22-28)
--- NOTE | 2018-01-05 21:32 | PCM.RRT ---
<Danny Campbell - Last Filed: 01/05/18 21:25> [employer] Nurse Assessment - Situation Date: 01/05/18 Time [employer] was called: 20:48 [employer] [employer] Responder Arrival Time: 20:50 [employer] [employer] Location:: [address] [place] [address] Room Number: [id number] [employer] Reason for Call: O2 Saturation below 90% [facility] Called By: RN - IV IV Inserted during [employer]?: No - Respiratory Oxygen Delivery Method: BiPAP @% Received Nebulizer Treatments:: Yes Was the Patient Ventilated with Bag/Mask 100% O2?: No Secretions Suctioned?: No Was the Patient Intubated?: No - Medication Medications Administered During [employer]: 125mg solumedrol IVP. 20mg cardizem IVP. 40mg Lasix IVP. cardizem drip at 5mg/hr - Diagnostic Test Ordered EKG: Yes - Stat Labs Ordered [employer] Stat Labs Ordered: TROPONIN CPR started during [employer]?: No - Vital Signs Vital Sign: Rapid Response Vital Sign Blood Pressure 149/66 Pulse Rate 116 Respiratory Rate 22 Oxygen Saturation 99 - Recommendations Notifications: Attending Physician I.Reason for [employer] - A) Acute Change in Patient: Subjective: 87 year old male with PMH of COPD, CHF, CAD s/p CABG, iron deficiency anemia, CKD stage IV, COPD and dementia admitted for UZAIR, urinary obstruction and anemia. Rapid response was called after patient found to be in atrial fibrillation on monitor with HR in the 120's. Patient admitted to [facility] at the time of evaluation and denied any other complaints. BP noted to be 170/90 initially and physical exam noted B/L wheezing in the lungs. EKG showed atrial fibrillation with HR of 120. 20mg of cardizem given and HR decreased to the 100's and BP decreased to 120s/80s. Patient started on 5mg/hr cardizem drip. - Respiratory Oxygen Delivery Method: BiPAP @% - Head Head Exam: ATRAUMATIC - Eyes Eye Exam: EOMI - Respiratory Exam Respiratory Exam: Wheezes - Cardiovascular Exam Cardiovascular Exam: Tachycardia, Irregular Rhythm, +S1, +S2 - GI/Abdominal Exam GI & Abdominal Exam: Normal Bowel Sounds. absent: Guarding, Rigid - Neurological Exam Neurological Exam: Awake - Extremities Exam Extremities Exam: Normal Inspection. absent: Calf Tenderness Plan - Assessment of Findings&Treatment Plan 87 year old male with PMH of COPD, CHF, CAD s/p CABG, iron deficiency anemia, CKD stage IV, COPD and dementia admitted for UZAIR, urinary obstruction and anemia had [employer] notified for respiratory distress and atrial fibrillation on monitor -CBC, CMP, troponin -EKG showed rapid afib, RBBB, ST depressions in V4/V5 consistent with prior changes at rate of 120 -solumedrol 125mg -lasix 40mg -cardizem 20mg given, 5 mg/hr drip -troponin, EKG in AM -xopenex treatment -bipap treatment -attending notified Patient seen and case discussed with attending, Dr. Mahmood <Berna Mahmood - Last Filed: 01/06/18 01:55> [employer] Nurse Assessment - Vital Signs Vital Sign: Rapid Response Vital Sign Blood Pressure 149/66 Pulse Rate 116 Respiratory Rate 22 Oxygen Saturation 99 Attending/Attestation - Attestation I have personally seen and examined this patient.: Yes I have fully participated in the care of the patient.: Yes I have reviewed all pertinent clinical information, including history, physical exam and plan: Yes
[2018-01-05 21:48] LABS: ALBUMIN 3.4 g/dL (3.0-4.8); CALCIUM 10.3 mg/dL (8.4-10.5)
[2018-01-05 21:58] LABS: TROPONIN I 1.69 ng/mL
[2018-01-05] MEDS: diltiaZEM IVPB 100mg in NS 100 ML IV PRN (22:00)
[2018-01-06] MEDS ORDERED: DiphenhydrAMINE 50 mg/ml Inj IVP STA ×3 (01:08→23:20)
[2018-01-06] MEDS: Albuterol-Ipratrop 3 mg / 0.5 (3 ml) UD IH SCH ×4 (01:15→19:49)
[2018-01-06] MEDS: Pantoprazole 20 mg EC Tab PO SCH (06:08)
[2018-01-06] MEDS: Levothyroxine 25 MCG TAB PO SCH (06:08)
[2018-01-06] MEDS: Arformoterol 15 mcg/2 ml Inh Sol IH SCH ×2 (07:15→19:49)
[2018-01-06] MEDS: Budesonide 0.5 mg/2 ml Inhal Susp UD IH SCH ×2 (07:15→19:49)
--- NOTE | 2018-01-06 07:48 | CP.PCM.PN ---
Subjective - Date & Time of Evaluation Date of Evaluation: 01/06/18 Time of Evaluation: 06:35 - Subjective Subjective: Awake,No distress, lying in bed, BIPAP in use Reason for consultation and follow up: Cardiac evaluation for elevated BNP, rule out congestive heart failure, NSTEMI, Seen and examined by me and Dr. Jacobson Objective - Vital Signs/Intake and Output Vital Signs (last 24 hours): Temp Pulse Resp BP Pulse Ox 98.4 F 84 19 166/76 H 96 01/06/18 06:00 01/06/18 06:00 01/06/18 06:00 01/06/18 06:00 01/06/18 06:00 Intake and Output: 01/06/18 01/06/18 06:59 18:59 Intake Total 0 Output Total 1300 Balance -1300 - Medications Medications: Current Medications Acetaminophen (Tylenol 325mg Tab) 650 mg PO Q6H PRN PRN Reason: Fever >100.4 F Last Admin: 12/31/17 01:25 Dose: 650 mg Albuterol/Ipratropium (Duoneb 3 Mg/0.5 Mg (3 Ml) Ud) 3 ml IH [id number] PRN PRN Reason: Shortness of Breath Last Admin: 12/26/17 19:55 Dose: 3 ml Albuterol/Ipratropium (Duoneb 3 Mg/0.5 Mg (3 Ml) Ud) 3 ml IH [id number] [facility] Last Admin: 01/06/18 07:15 Dose: 3 ml Arformoterol Tartrate (Brovana) 15 mcg IH [id number] [facility] Last Admin: 01/06/18 07:15 Dose: 15 mcg Aspirin (Ecotrin) 81 mg PO DAILY [facility] Last Admin: 01/05/18 09:14 Dose: Not Given Budesonide (Pulmicort Respules) 0.5 mg IH [id number] [facility] Last Admin: 01/05/18 19:49 Dose: 0.5 mg Calcitriol (Rocaltrol) 0.5 mcg PO DAILY [facility] Last Admin: 01/05/18 09:15 Dose: Not Given Furosemide (Lasix) 40 mg PO DAILY [facility] Last Admin: 01/05/18 09:14 Dose: Not Given Gabapentin (Neurontin) 300 mg PO BID [facility]; Protocol Last Admin: 01/05/18 17:21 Dose: Not Given Daptomycin 500 mg/ Sodium (Chloride) 100 mls @ 200 mls/hr IV Q48H [facility] Stop: 01/06/18 10:16 Last Admin: 01/05/18 19:00 Dose: 200 mls/hr diltiaZEM IVPB 100mg in NS (Cardizem 100mg In Ns) 100 mls @ 5 mls/hr IV .Q20H PRN; Protocol PRN Reason: TITRATE PER MD ORDER Last Admin: 01/05/18 22:00 Dose: 5 mg/hr, 5 mls/hr Isosorbide Mononitrate (Imdur Er) 30 mg PO DAILY [facility] Last Admin: 01/05/18 09:14 Dose: Not Given Levothyroxine Sodium (Synthroid) 25 mcg PO 0600 [facility] Last Admin: 01/06/18 06:08 Dose: Not Given Memantine (Namenda) 10 mg PO DAILY [facility] Last Admin: 01/05/18 09:15 Dose: Not Given Metoprolol Tartrate (Lopressor) 12.5 mg PO BID [facility] Last Admin: 01/05/18 17:21 Dose: Not Given Montelukast Sodium (Singulair) 10 mg PO HS [facility] Last Admin: 01/05/18 21:34 Dose: Not Given Pantoprazole Sodium (Protonix Ec Tab) 20 mg PO 0600 [facility] Last Admin: 01/06/18 06:08 Dose: Not Given Tamsulosin HCl (Flomax) 0.4 mg PO DAILY [facility] Last Admin: 01/05/18 09:14 Dose: Not Given - Labs Labs: 01/05/18 07:00 01/05/18 21:10 PT 14.5 SECONDS (9.4-12.5) H 01/05/18 07:00 INR 1.26 01/05/18 07:00 APTT 32.8 Seconds (25.1-36.5) 01/05/18 07:00 - Constitutional Appears: Non-toxic, No Acute Distress - Head Exam Head Exam: NORMAL INSPECTION, NORMOCEPHALIC - ENT Exam ENT Exam: Mucous Membranes Dry - Respiratory Exam Respiratory Exam: Decreased Breath Sounds, Rhonchi, NORMAL BREATHING PATTERN - Cardiovascular Exam Cardiovascular Exam: +S1, +S2 - GI/Abdominal Exam GI & Abdominal Exam: Soft, Normal Bowel Sounds - Extremities Exam Extremities Exam: Normal Capillary Refill - Neurological Exam Additional comments: lethargic but arousable - Skin Skin Exam: Dry, Normal Color, Warm Assessment and Plan - Assessment and Plan (Free Text) Assessment: An 87 year old male who was brought in from [facility] due to low hemoglobin.History of COPD,chronic diastolic CHF, hypertension, hyperlipidemia, dementia,anemia, coronary artery disease post CABG,cardiomyopathy, LVEF from ECHO 20%, AICD. Admitted for acute renal injury, severe anemia. Blood transfusion of 2 units PRBC given.On iron infusion.Repeat H/H stable. Confuse, GI work up. Had EGD with clipping and biopsy , active bleeding with multiple duodenal arteriovenous malformations, gastric arteriovenous malformations as Dieulafoy lesion.2 units PRBC given for low H/H. Confuse, pulled out IV and sol catheter.on soft wrist restraints. NSTEMI 2 days ago.Troponin 9. Conservative medical treatment.Troponin trending down.Post cystoscopy (evacuation of blood clots).As per Dr. Woodward,no invasive procedures. (ANDRE and cardiac catheterization due to underlying co morbidities. Recent troponin 7.34. trending down. Bacteremia, positive blood cultures for MRSA Post [employer] for new onset Atrial fibrillation,Cardizem drip started, converted to NSR. Failed swallowing evaluation, kept NPO. Plan: On BIPAP, lethargic but arousable Post [employer] last night due to new onset Atrial fibrillation Cardizem drip at 5 mg/hr started Converted to NSR Patient is NPO so cannot convert IV Cardizem to oral Continue IV Cardizem Will hold Imdur for now as patient is NPO and start Nitropaste Troponin 1.69- trending down compared to previous days Bacteremia, positive blood cultures for MRSA ID on consult Continue IV antibiotics per ID Contact isolation Blood pressure controlled On Lipitor 40 mg daily, Hydralazine IV PRN, Imdue ER 30 mg daily, Synthroid 25 mcg daily,Lopressor 12.5 mg BID, Flomax 0.4 mg daily, Nicoderm patch daily. Continue current treatment Continue current medications Fall precaution Aspiration precaution Chart reviewed Will follow up Plan and treatment discussed with Dr. Woodward
--- NOTE | 2018-01-06 11:23 | RAD ---
Date of service: 01/06/2018 HISTORY: SOB COMPARISON: 01/04/2018. FINDINGS: LUNGS: Worsening pulmonary edema. PLEURA: Stable pleural effusions. CARDIOVASCULAR: Atherosclerotic calcifications identified primarily aortic arch. Stable cardiomegaly. OSSEOUS STRUCTURES: No significant abnormalities. VISUALIZED UPPER ABDOMEN: Normal. OTHER FINDINGS: None. IMPRESSION: Worsening and presumed cardiogenic pulmonary edema.
--- NOTE | 2018-01-06 11:40 | CP.PCM.PN ---
<ZackbrianViipn - Last Filed: 01/06/18 11:49> Subjective - Date & Time of Evaluation Date of Evaluation: 01/06/18 Time of Evaluation: 11:39 - Subjective Subjective: Patient still with neruological changes since Sunday. He did not pass swallow eval and is now an aspiration risk and NPO currently. He appears dry. No IVF goi ng. I discussed with nursing to notify primary team. No further bleeding. Objective - Vital Signs/Intake and Output Vital Signs (last 24 hours): Temp Pulse Resp BP Pulse Ox 98.4 F 84 19 166/76 H 96 01/06/18 06:00 01/06/18 10:00 01/06/18 06:00 01/06/18 06:00 01/06/18 06:00 Intake and Output: 01/06/18 01/06/18 06:59 18:59 Intake Total 0 Output Total 1300 Balance -1300 - Medications Medications: Current Medications Acetaminophen (Tylenol 325mg Tab) 650 mg PO Q6H PRN PRN Reason: Fever >100.4 F Last Admin: 12/31/17 01:25 Dose: 650 mg Albuterol/Ipratropium (Duoneb 3 Mg/0.5 Mg (3 Ml) Ud) 3 ml IH [id number] PRN PRN Reason: Shortness of Breath Last Admin: 12/26/17 19:55 Dose: 3 ml Albuterol/Ipratropium (Duoneb 3 Mg/0.5 Mg (3 Ml) Ud) 3 ml IH [id number] [facility] Last Admin: 01/06/18 07:15 Dose: 3 ml Arformoterol Tartrate (Brovana) 15 mcg IH [id number] [facility] Last Admin: 01/06/18 07:15 Dose: 15 mcg Aspirin (Ecotrin) 81 mg PO DAILY [facility] Last Admin: 01/05/18 09:14 Dose: Not Given Budesonide (Pulmicort Respules) 0.5 mg IH [id number] [facility] Last Admin: 01/05/18 19:49 Dose: 0.5 mg Calcitriol (Rocaltrol) 0.5 mcg PO DAILY [facility] Last Admin: 01/05/18 09:15 Dose: Not Given Furosemide (Lasix) 40 mg PO DAILY [facility] Last Admin: 01/05/18 09:14 Dose: Not Given Gabapentin (Neurontin) 300 mg PO BID [facility]; Protocol Last Admin: 01/05/18 17:21 Dose: Not Given diltiaZEM IVPB 100mg in NS (Cardizem 100mg In Ns) 100 mls @ 5 mls/hr IV .Q20H PRN; Protocol PRN Reason: TITRATE PER MD ORDER Last Admin: 01/05/18 22:00 Dose: 5 mg/hr, 5 mls/hr Isosorbide Mononitrate (Imdur Er) 30 mg PO DAILY [facility] Last Admin: 01/05/18 09:14 Dose: Not Given Levothyroxine Sodium (Synthroid) 25 mcg PO 0600 [facility] Last Admin: 01/06/18 06:08 Dose: Not Given Memantine (Namenda) 10 mg PO DAILY [facility] Last Admin: 01/05/18 09:15 Dose: Not Given Montelukast Sodium (Singulair) 10 mg PO HS [facility] Last Admin: 01/05/18 21:34 Dose: Not Given Nitroglycerin (Nitro-Bid 2% Oint) 1 ea TOP Q8 [facility] Pantoprazole Sodium (Protonix Ec Tab) 20 mg PO 0600 [facility] Last Admin: 01/06/18 06:08 Dose: Not Given Tamsulosin HCl (Flomax) 0.4 mg PO DAILY [facility] Last Admin: 01/05/18 09:14 Dose: Not Given - Labs Labs: 01/05/18 07:00 01/05/18 21:10 PT 14.5 SECONDS (9.4-12.5) H 01/05/18 07:00 INR 1.26 01/05/18 07:00 APTT 32.8 Seconds (25.1-36.5) 01/05/18 07:00 - Constitutional Appears: Non-toxic, No Acute Distress, Chronically Ill - Head Exam Head Exam: NORMAL INSPECTION Additional comments: facial droop - Eye Exam Eye Exam: Normal appearance - Respiratory Exam Respiratory Exam: absent: Wheezes, Respiratory Distress - Cardiovascular Exam Cardiovascular Exam: Irregular Rhythm, +S1, +S2. absent: Tachycardia - GI/Abdominal Exam GI & Abdominal Exam: Soft, Normal Bowel Sounds. absent: Tenderness - Neurological Exam Neurological Exam: Alert, Awake - Psychiatric Exam Psychiatric exam: Flat Affect, Normal Mood - Skin Skin Exam: Dry, Normal Color Assessment and Plan - Assessment and Plan (Free Text) Assessment: 87 year old male with past medical history of COPD, CHF s/p AICD, HTN, CAD s/p CABG, CKD stage IV, dementia, iron deficiency anemia, hx of gastritis, HLD with severe anemia. Patient s/p colonoscopy and EGD showing multiple non bleeding AVM. Patient with no reports of blood per rectum or hemoptysis Plan: Aemia likely secondary to urethra trauma Acute blood loss anemia due to GI bleed Possible acute CVA 01/04/18 NSTEMI-cardiology following AFib w. RVR Sepsis secondary to MSSA bacteremia with unclear source Demenita HTN HLD CHF s/p AICD (EF of 55%) - EGD 12/25/17 Shows gastric and duodenal bulb AVMs. Gastric AVM had active bleeding and was injected with epi and clipped, f/u Pathology - Monitor H/H with serial CBC, transfuse if symptomatic or hgb<7. Currently stable. - ID following for bacteremia, ruling out endocarditis vs. pacemaker infection vs. HCAP - Antibiotics as per ID - Continue PPI - Given possibility of stroke and afib, patient may need to be anticoagulated. Okay from GI standpoint to start OAC however timing should be based no neuro and urology recs. - We will follow as patient may need a PEG if he cannot pass swallow eval, and remains to be high risk for aspiration. Defer to primary team and family discussions. - We will discuss with PMD about PO status and IVF needs. - Further recommendations per Dr. Murdock <Ramon Murdock V - Last Filed: 01/06/18 21:14> Objective - Vital Signs/Intake and Output Vital Signs (last 24 hours): Temp Pulse Resp BP Pulse Ox 97.1 F L 84 18 163/66 H 96 01/06/18 12:00 01/06/18 14:00 01/06/18 12:00 01/06/18 15:00 01/06/18 06:00 Intake and Output: 01/06/18 01/07/18 18:59 06:59 Intake Total 155 Output Total 850 Balance -695 - Medications Medications: Current Medications Acetaminophen (Tylenol 325mg Tab) 650 mg PO Q6H PRN PRN Reason: Fever >100.4 F Last Admin: 12/31/17 01:25 Dose: 650 mg Albuterol/Ipratropium (Duoneb 3 Mg/0.5 Mg (3 Ml) Ud) 3 ml IH [id number] PRN PRN Reason: Shortness of Breath Last Admin: 12/26/17 19:55 Dose: 3 ml Albuterol/Ipratropium (Duoneb 3 Mg/0.5 Mg (3 Ml) Ud) 3 ml IH [id number] [facility] Last Admin: 01/06/18 19:49 Dose: 3 ml Arformoterol Tartrate (Brovana) 15 mcg IH [id number] [facility] Last Admin: 01/06/18 19:49 Dose: 15 mcg Aspirin (Ecotrin) 81 mg PO DAILY [facility] Last Admin: 01/06/18 15:04 Dose: Not Given Budesonide (Pulmicort Respules) 0.5 mg IH [id number] [facility] Last Admin: 01/06/18 19:49 Dose: 0.5 mg Calcitriol (Rocaltrol) 0.5 mcg PO DAILY [facility] Last Admin: 01/06/18 15:05 Dose: Not Given Furosemide (Lasix) 40 mg PO DAILY [facility] Last Admin: 01/06/18 15:05 Dose: Not Given Furosemide (Lasix) 40 mg IV DAILY [facility] Last Admin: 01/06/18 15:00 Dose: 40 mg diltiaZEM IVPB 100mg in NS (Cardizem 100mg In Ns) 100 mls @ 5 mls/hr IV .Q20H PRN; Protocol PRN Reason: TITRATE PER MD ORDER Last Admin: 01/06/18 17:19 Dose: 5 mg/hr, 5 mls/hr Isosorbide Mononitrate (Imdur Er) 30 mg PO DAILY [facility] Last Admin: 01/06/18 15:04 Dose: Not Given Levothyroxine Sodium (Synthroid) 25 mcg PO 0600 [facility] Last Admin: 01/06/18 06:08 Dose: Not Given Memantine (Namenda) 10 mg PO DAILY [facility] Last Admin: 01/06/18 15:05 Dose: Not Given Montelukast Sodium (Singulair) 10 mg PO HS [facility] Last Admin: 01/05/18 21:34 Dose: Not Given Nitroglycerin (Nitro-Bid 2% Oint) 1 ea TOP Q8 [facility] Last Admin: 01/06/18 15:03 Dose: 1 ea Pantoprazole Sodium (Protonix Ec Tab) 20 mg PO 0600 [facility] Last Admin: 01/06/18 06:08 Dose: Not Given Tamsulosin HCl (Flomax) 0.4 mg PO DAILY [facility] Last Admin: 01/06/18 15:04 Dose: Not Given - Labs Labs: 01/05/18 07:00 01/05/18 21:10 PT 14.5 SECONDS (9.4-12.5) H 01/05/18 07:00 INR 1.26 01/05/18 07:00 APTT 32.8 Seconds (25.1-36.5) 01/05/18 07:00 Attending/Attestation - Attestation I have personally seen and examined this patient.: Yes I have fully participated in the care of the patient.: Yes I have reviewed all pertinent clinical information, including history, physical exam and plan: Yes Notes (Text): This is an addendum to GI progress report dictated by the GI Fellow.The patient was seen and examined earlier. Medical records, lab studies, imagings were reviewed. Last 24 hours events reviewed. Agreed with the above treatment plan as outlined in GI Fellow 's notes with the addition of the following Patient remains confused Dysphagia Discussed with Dr. Rivas Would start PPN Patient pulled out sol before It is very likely he will pull out DOBHOFF feeding tube and would defer it at the present time G tube may be an option to consider However there is also a real risk of the patient pulling out the G tube History of multiple AVM status post bicap History of hematuria Followup HCT 01/06/18 21:11
--- NOTE | 2018-01-06 12:20 | CARD ---
APPROVED REPORT Date of service: 01/06/2018 EKG Measurement Heart [id number] <Conclusion> Sinus rhythm with 1st degree AV block Possible Left atrial enlargement Left axis deviation Right bundle branch block Left ventricular hypertrophy with repolarization abnormality Abnormal ECG
[2018-01-06] MEDS: Nitroglycerin 2% Ointment Foilpak UD TOP SCH ×2 (15:03→22:02)
[2018-01-06] MEDS: diltiaZEM IVPB 100mg in NS 100 ML IV PRN (17:19)
--- NOTE | 2018-01-06 18:49 | PN ---
DATE: 01/06/2018 SUBJECTIVE: The patient is in bed, in no acute distress, nontoxic. PHYSICAL EXAMINATION: VITAL SIGNS: Temperature is 98, blood pressure is 160/70, respiratory rate of 18. HEENT: Unremarkable. NECK: Supple. LUNGS: Have decreased breath sounds. HEART: Normal S1, S2. ABDOMEN: Soft, nontender. LABORATORY DATA: Reveals a white count of 8.1, hemoglobin of 8, platelets of 183. BUN of 33, creatinine of 2. Troponin is 1.69 and 1.26. C-reactive protein is greater than 15. Procalcitonin 0.55. Microbiology reveals the repeat blood cultures are negative from 01/03/2018. The patient had multiple blood cultures positive for MRSA and review of orders reveals the patient to be on daptomycin and Solu-Medrol. ASSESSMENT AND PLAN: This is an 87-year-old male with history of coronary artery disease, coronary artery bypass graft, pacemaker, chronic fructose lung disease, cardiomyopathy, hypertension, pulmonary hypertension, diastolic congestive heart failure, dementia, admitted with sepsis with idiopathic thrombocytopenic purpura with methicillin-resistant Staphylococcus aureus bacteremia, [id number] myocardial infarction which was persistent, multiple blood cultures have been positive for methicillin-resistant Staphylococcus aureus bacteremia. Today is day #4 of at least 28 days of daptomycin with a weekly CBC, SMA-18, sed rate, C-reactive protein. Concerned about endocarditis and/or pacemaker infection, day #4 of 28 days. Should have weekly CBC, SMA-18, sed rate, C-reactive protein, and CPK. Should have a repeat echo. Last echo was on the 01/01/2018. We will order another echo next week. Cardiology's note from today is reviewed. The patient had a rapid response and a CAT scan of the head yesterday. No acute findings. Should consider a hospice setting for this patient who is end stage. Thor Fairbanks MD
--- NOTE | 2018-01-06 21:50 | PN ---
DATE: 01/06/2018 PULMONARY PROGRESS NOTE REFERRING PHYSICIAN: Irasema Rivas MD. SUBJECTIVE: He is lying in the bed, head at 45 degrees, on nasal cannula. Thirsty, wants to drink. Overnight events noted. retail mortgage banker had rapid response because of hypoxemia. He was placed on noninvasive ventilation. This morning, spoke to the nursing staff. BiPAP was taken off, replaced with nasal cannula. Requiring some oral suction. No chest pain. No nausea. No vomiting, diarrhea, leg pain, or leg swelling. He is being followed by Cardiology as well as GI. The patient has severe oropharyngeal dysphagia, evaluated by the Speech Therapy and placed on n.p.o. PHYSICAL EXAMINATION: GENERAL: In no acute distress. VITAL SIGNS: Temperature is 98, heart rate is 84, respiratory rate is 18, blood pressure 163/66, pulse ox 94% on nasal cannula. HEENT: Moist mucous membrane. Crowded airway. NECK: Supple. No JVD. LUNGS: Have crackles at bases, scattered rhonchi. HEART: S1 and S2. ABDOMEN: Soft, nontender. No organomegaly. EXTREMITIES: There is no edema. NEUROLOGICAL: Awake and alert. Follows simple command, but his mental status is waxing and waning. MEDICATIONS: He is on Brovana inhaled twice a day, Cardizem he is getting IV drip 5 mL/hour, also getting DuoNeb every 4 hours p.r.n. and every 6 hours [id number], Ecotrin 81 mg daily, Flomax, Imdur ER is at 30 mg daily, Lasix is at 40 mg daily, also on Namenda 10 mg daily, gabapentin 300 mg twice a day, Protonix 20 mg daily, Pulmicort inhaled twice a day, Singulair is 10 mg daily, Synthroid 25 mcg daily, and Tylenol p.r.n. basis. LABORATORY DATA: Reviewed. Has blood gases done yesterday shows pH 7.35, pCO2 of 37, pO2 is 91. ProBNP done this morning shows 66,200. Procalcitonin ordered, but is pending. Repeat blood cultures, there is no growth since 01/01/2018. Chest x-ray shows pulmonary edema. EKG done this morning shows sinus rhythm with first-degree AV block. IMPRESSION AND PLAN: Staphylococcus bacteremia, probably origin is genitourinary tract; hematuria is improved; chronic obstructive lung disease; cardiomyopathy; diastolic and systolic dysfunction; pulmonary hypertension; coronary artery disease; hyperlipidemia; gastric angiopathy; oropharyngeal dysphagia. He is placed on n.p.o. Case discussed with nursing staff in detail. Finally, BiPAP was removed. The patient was placed on nasal cannula. Presently doing okay, but x-ray shows pulmonary edema. ProBNP is in thousands. We will give Lasix 40 mg IV now and daily. Decision is being made how to feed the patient. For now, I think GI recommended to go ahead and start total parenteral nutrition, but need to follow fluid status closely. May continue to place BiPAP while sleeping, bronchodilator. Continue speech therapy followup. Follow up labs in the morning. Thank you and we will follow with you. Radha Vail MD
--- NOTE | 2018-01-06 22:53 | PN ---
DATE: 01/06/2018 SUBJECTIVE: The patient is an 87-year-old male. The patient was sitting on the chair, feeling a little bit better. I noted rapid response yesterday. All notes reviewed by me. At this moment, no fever, no chest pain, no shortness of breath. Failed swallowing evaluation. Discussion done with Dr. Murdock. Maybe, we will start peripheral parenteral nutrition. Discussion done with the son, explained him all father's condition. Son, Shola, is the power of automation and controls instructor. The patient is full code. Paper workup is in the chart. PHYSICAL EXAMINATION: VITAL SIGNS: Temperature 98.4, pulse 84, respiratory rate 19, blood pressure 150/70, pulse oximetry 96%. HEENT: Head: Normocephalic, atraumatic. Eyes: PERRLA. Extraocular muscles intact. Conjunctivae clear. Nose patent. Mucous membrane moist. NECK: Supple. No carotid bruit, JVD, or thyromegaly. CHEST: Bilaterally symmetrical. HEART: S1 and S2 positive. LUNGS: Clear to auscultation. ABDOMEN: Soft. Bowel sounds positive. No organomegaly. EXTREMITIES: No edema. No cyanosis. NEUROLOGIC: The patient is awake, alert. Follow simple commands. MEDICATIONS: Tylenol, DuoNeb, Brovana, Ecotrin, Pulmicort, calcitriol, Lasix, Neurontin, daptomycin, Cardizem, Imdur, levothyroxine, Namenda, Lopressor, Singulair, and Protonix. LABORATORY DATA: White blood cell is 8.1, hemoglobin 8.3, hematocrit 27.8, platelets 183. Sodium 146, potassium 4.6, BUN 33, creatinine 2, glucose 114. ASSESSMENT AND PLAN: Mr. Faraz Zuñiga is an 87-year-old male with anemia, renal insufficiency, hyperglycemia, severe anemia, multiple time blood transfusions, iron infusion, chronic obstructive pulmonary disease, chronic diastolic congestive heart failure, hypertension, hypercholesterolemia, dementia, coronary artery disease, coronary artery bypass graft, cardiomyopathy. Discussion done with Dr. Murdock about esophagogastroduodenoscopy and clipping of arteriovenous malformations. Monitoring H and H. The patient has atrial fibrillation, Cardizem drip started, converted to normal sinus rhythm. Failed swallowing evaluation, kept n.p.o. We will give peripheral parenteral nutrition. We will follow up. Irasema Rivas MD
[2018-01-07] MEDS: Albuterol-Ipratrop 3 mg / 0.5 (3 ml) UD IH SCH ×4 (01:14→19:40)
[2018-01-07] MEDS: Nitroglycerin 2% Ointment Foilpak UD TOP SCH ×3 (06:38→23:21)
[2018-01-07] MEDS: Pantoprazole 20 mg EC Tab PO SCH (06:38)
[2018-01-07] MEDS: Levothyroxine 25 MCG TAB PO SCH (06:39)
[2018-01-07 06:40] LABS: HEMOGLOBIN 8.7 g/dL (14.0-18.0); MEAN CELL VOLUME 89.4 fl (80.0-105.0); MEAN CORPUSCULAR HGB CONC 30.2 g/dl (31.0-37.0); MEAN PLATELET VOLUME 10.9 fl (7.0-11.0); RBC 3.22 10^6/uL (3.5-6.1); RED CELL DISTRIBUTION WIDTH 18.6 % (11.5-14.5); WHITE BLOOD COUNT 7.2 10^3/ul (4.5-11.0)
[2018-01-07 06:45] LABS: CALCIUM 10.4 mg/dL (8.4-10.5)
[2018-01-07] MEDS: Arformoterol 15 mcg/2 ml Inh Sol IH SCH ×2 (07:30→19:40)
[2018-01-07] MEDS: Budesonide 0.5 mg/2 ml Inhal Susp UD IH SCH ×2 (07:30→19:40)
--- NOTE | 2018-01-07 07:48 | CP.PCM.CON ---
<Ector Torresil - Last Filed: 01/07/18 12:35> History of Present Illness - History of Present Illness History of Present Illness: Saurabh Torres- Internal Medicine Resident- Neurology Consult Note Subjective: CC: Altered Mental Status HPI: Patient is a 87 year old male with past medical history of HTN, CHF, CAD s/p CABG, iron deficiency anemia, CKD stage IV, COPD, dementia who came from [facility] for evaluation and treatment of hematuria secondary to trauma from pulling of sol catheter. Neurology team was consulted for evaluation of altered mental status. Patient seen and examined in chair at bedside. Offers no complaints at this time. Patient is a poor historian. Does not fully understand why he was brought to the hospital. As per records, the patient was experiencing isiah hematuria which has since improved. Patient offers no new complaints at this time. Denies fever, chills, dizziness, visual/auditory changes, chest pain, shortness of breath, nausea, vomiting, diarrhea, constipation, and urinary symptoms. 12 point ROS negative except as indicated in HPI Past medical history: HTN, CHF, CAD s/p CABG, iron deficiency anemia, CKD stage IV, COPD, dementia Past surgical history: CABG, AICD Allergies: NKDA Social history: No EtoH,or drug use. Former tobacco abuse. Came from prison Family history: [facility] Home meds: please see medication reconciliation Physical Examination: - Constitutional Appears: No Acute Distress - Head Exam Head Exam: ATRAUMATIC, NORMAL INSPECTION, NORMOCEPHALIC - Eye Exam Eye Exam: EOMI, Normal appearance. absent: Conjunctival injection, Periorbital swelling, Scleral icterus - ENT Exam ENT Exam: Mucous Membranes Moist, Normal External Ear Exam. absent: Mucous Membranes Dry - Neck Exam Neck Exam: Normal Inspection. absent: Meningismus, Tenderness - Respiratory Exam Respiratory Exam: Clear to Ausculation Bilateral, NORMAL BREATHING PATTERN. absent: Accessory Muscle Use, Chest Wall Tenderness, Decreased Breath Sounds, Rales, Respiratory Distress - Cardiovascular Exam Cardiovascular Exam: REGULAR RHYTHM. absent: Bradycardia, Tachycardia, Murmur - GI/Abdominal Exam GI & Abdominal Exam: Soft, Normal Bowel Sounds. absent: Distended, Firm, Guarding, Rigid, Tenderness - Extremities Exam Extremities Exam: Normal Inspection. absent: Calf Tenderness, Joint Swelling, Pedal Edema, Tenderness - Neurological Exam Neurological Exam: Alert, Awake, Oriented x 1 to name, responds to verbals stimuli, follows commands, answers questions appropriately, moves extremities past midline - Psychiatric Exam Psychiatric exam: Normal Affect, Normal Mood. absent: Agitated, Anxious - Skin Skin Exam: Dry, Intact, Normal Color, Warm Assessment and Plan: Patient is a 87 year old male with past medical history of HTN, CHF, CAD s/p CABG, iron deficiency anemia, CKD stage IV, COPD, dementia who came from [facility] for evaluation and treatment of hematuria secondary to trauma from pulling of Sol catheter. Neurology team was consulted for evaluation of altered mental status. Altered Mental Status - 01/05/18 CT Head- No acute intracranial abnormalities. No significant findings to account for the clinical presentation. No significant interval change from previous study. - 01/04/18 CT Head- Generalized atrophy. Nonspecific white matter changes. Chronic appearing lacunar infarcts involving the right thalamus and left basal ganglia. Chronic appearing encephalomalacia, left parietal lobe - history of atrial fibrillation- recommend anticoagulation due to high risk of stroke, [id number]> 2, moderate-high risk, meets criteria for anticoagulation candidate - baseline dementia noted as per records - ensure Hbg > 7 - ensure electrolytes are within normal range, hypernatremia noted- needs to appropriate correction to avoid development of cerebral edema - maintain euglycemia - continue secondary stroke prevention: aspirin, blood pressure control goal SBP 90-150mmHg, lack of tobacco use, proper diet/physical activity Patient case discussed with attending physician, Dr. Patterson. Past Patient History - Past Medical History & Family History Past Medical History?: Yes - Past Social History Smoking Status: Current Some Days Smoker - CARDIAC Hx Congestive Heart Failure: Yes - PULMONARY Hx Chronic Obstructive Pulmonary Disease (COPD): Yes - NEUROLOGICAL Hx Neurological Disorder: Yes Hx Dementia: Yes Other/Comment: As per daughter, pt has mild dementia. - HEENT Hx HEENT Problems: No - RENAL Hx Renal Failure: Yes - ENDOCRINE/METABOLIC Hx Endocrine Disorders: No - HEMATOLOGICAL/ONCOLOGICAL Hx Blood Transfusions: Yes Hx Blood Transfusion Reaction: No - INTEGUMENTARY Hx Dermatological Problems: No - MUSCULOSKELETAL/RHEUMATOLOGICAL Hx Musculoskeletal Disorders: Yes Hx Falls: Yes - GASTROINTESTINAL Hx Gastrointestinal Disorders: Yes Other/Comment: Gastritis - GENITOURINARY/GYNECOLOGICAL Hx Genitourinary Disorders: No - PSYCHIATRIC Hx Psychophysiologic Disorder: No Hx Substance Use: No - SURGICAL HISTORY Hx Surgeries: Yes - ANESTHESIA Hx Anesthesia Reactions: No Hx Malignant Hyperthermia: No Meds Allergies/Adverse Reactions: Allergies Allergy/AdvReac Type Severity Reaction Status Date / Time No Known Allergies Allergy Verified 04/11/17 19:07 - Medications Medications: Current Medications Acetaminophen (Tylenol 325mg Tab) 650 mg PO Q6H PRN PRN Reason: Fever >100.4 F Last Admin: 12/31/17 01:25 Dose: 650 mg Albuterol/Ipratropium (Duoneb 3 Mg/0.5 Mg (3 Ml) Ud) 3 ml IH [id number] PRN PRN Reason: Shortness of Breath Last Admin: 12/26/17 19:55 Dose: 3 ml Albuterol/Ipratropium (Duoneb 3 Mg/0.5 Mg (3 Ml) Ud) 3 ml IH [id number] [facility] Last Admin: 01/07/18 07:30 Dose: 3 ml Arformoterol Tartrate (Brovana) 15 mcg IH [id number] [facility] Last Admin: 01/07/18 07:30 Dose: 15 mcg Aspirin (Ecotrin) 81 mg PO DAILY [facility] Last Admin: 01/06/18 15:04 Dose: Not Given Budesonide (Pulmicort Respules) 0.5 mg IH [id number] [facility] Last Admin: 01/07/18 07:30 Dose: 0.5 mg Calcitriol (Rocaltrol) 0.5 mcg PO DAILY [facility] Last Admin: 01/06/18 15:05 Dose: Not Given Furosemide (Lasix) 40 mg PO DAILY [facility] Last Admin: 01/06/18 15:05 Dose: Not Given Furosemide (Lasix) 40 mg IV DAILY [facility] Last Admin: 01/06/18 15:00 Dose: 40 mg diltiaZEM IVPB 100mg in NS (Cardizem 100mg In Ns) 100 mls @ 5 mls/hr IV .Q20H PRN; Protocol PRN Reason: TITRATE PER MD ORDER Last Admin: 01/06/18 17:19 Dose: 5 mg/hr, 5 mls/hr Isosorbide Mononitrate (Imdur Er) 30 mg PO DAILY [facility] Last Admin: 01/06/18 15:04 Dose: Not Given Levothyroxine Sodium (Synthroid) 25 mcg PO 0600 [facility] Last Admin: 01/07/18 06:39 Dose: Not Given Memantine (Namenda) 10 mg PO DAILY [facility] Last Admin: 01/06/18 15:05 Dose: Not Given Montelukast Sodium (Singulair) 10 mg PO HS [facility] Last Admin: 01/06/18 22:03 Dose: Not Given Nitroglycerin (Nitro-Bid 2% Oint) 1 ea TOP Q8 [facility] Last Admin: 01/07/18 06:38 Dose: 1 ea Pantoprazole Sodium (Protonix Ec Tab) 20 mg PO 0600 [facility] Last Admin: 01/07/18 06:38 Dose: Not Given Tamsulosin HCl (Flomax) 0.4 mg PO DAILY [facility] Last Admin: 01/06/18 15:04 Dose: Not Given Results - Vital Signs Recent Vital Signs: Last Vital Signs Temp 98.1 F 01/07/18 06:00 Pulse 98 H 01/07/18 06:00 Resp 20 01/07/18 06:00 BP 162/79 H 01/07/18 06:00 Pulse Ox 92 L 01/07/18 06:00 - Labs Result Diagrams: 01/07/18 05:50 01/07/18 05:50 Labs: Laboratory Results - last 24 hr 01/06/18 01/06/18 01/07/18 06:00 06:00 05:50 WBC 7.2 RBC 3.22 L Hgb 8.7 L Hct 28.8 L MCV 89.4 MCH 27.0 MCHC 30.2 L RDW 18.6 H Plt Count 222 MPV 10.9 Sodium Potassium Chloride Carbon Dioxide Anion Gap BUN Creatinine Est GFR ( Amer) Est GFR (Non-Af Amer) Random Glucose Calcium NT-Pro-B Natriuret Pep 21404 H Procalcitonin 0.33 01/07/18 05:50 WBC RBC Hgb Hct MCV MCH MCHC RDW Plt Count MPV Sodium 150 H Potassium 4.9 Chloride 119 H Carbon Dioxide 24 Anion Gap 12 BUN 45 H Creatinine 2.1 H Est GFR ( Amer) 36 Est GFR (Non-Af Amer) 30 Random Glucose 111 H Calcium 10.4 NT-Pro-B Natriuret Pep Procalcitonin <Quang Patterson - Last Filed: 01/08/18 11:08> Meds - Medications Medications: Current Medications Acetaminophen (Tylenol 325mg Tab) 650 mg PO Q6H PRN PRN Reason: Fever >100.4 F Last Admin: 12/31/17 01:25 Dose: 650 mg Albuterol/Ipratropium (Duoneb 3 Mg/0.5 Mg (3 Ml) Ud) 3 ml IH [id number] PRN PRN Reason: Shortness of Breath Last Admin: 12/26/17 19:55 Dose: 3 ml Albuterol/Ipratropium (Duoneb 3 Mg/0.5 Mg (3 Ml) Ud) 3 ml IH [id number] [facility] Last Admin: 01/08/18 07:50 Dose: 3 ml Arformoterol Tartrate (Brovana) 15 mcg IH [id number] [facility] Last Admin: 01/08/18 07:50 Dose: 15 mcg Aspirin (Ecotrin) 81 mg PO DAILY [facility] Last Admin: 01/08/18 10:44 Dose: 81 mg Budesonide (Pulmicort Respules) 0.5 mg IH [id number] [facility] Last Admin: 01/08/18 07:50 Dose: 0.5 mg Calcitriol (Rocaltrol) 0.5 mcg PO DAILY [facility] Last Admin: 01/08/18 10:44 Dose: Not Given Furosemide (Lasix) 40 mg IV DAILY [facility] Last Admin: 01/06/18 15:00 Dose: 40 mg diltiaZEM IVPB 100mg in NS (Cardizem 100mg In Ns) 100 mls @ 5 mls/hr IV .Q20H PRN; Protocol PRN Reason: TITRATE PER MD ORDER Last Admin: 01/08/18 05:55 Dose: 5 mg/hr, 5 mls/hr Daptomycin 480 mg/ Sodium (Chloride) 100 mls @ 200 mls/hr IV Q24H [facility] Stop: 02/04/18 12:16 Last Admin: 01/07/18 16:07 Dose: 200 mls/hr Amino Acids (Clinimix 4.25/5 % "E" (1000 Ml)) 1,000 mls @ 40 mls/hr IV .Q24H [facility] Sodium Chloride (Sodium Chloride 0.45%) 1,000 mls @ 50 mls/hr IV .Q20H [facility] Last Admin: 01/07/18 18:57 Dose: 50 mls/hr Isosorbide Mononitrate (Imdur Er) 30 mg PO DAILY [facility] Last Admin: 01/06/18 15:04 Dose: Not Given Levothyroxine Sodium (Synthroid) 25 mcg PO 0600 [facility] Last Admin: 01/08/18 05:52 Dose: Not Given Memantine (Namenda) 10 mg PO DAILY [facility] Last Admin: 01/08/18 10:44 Dose: 10 mg Montelukast Sodium (Singulair) 10 mg PO HS [facility] Last Admin: 01/06/18 22:03 Dose: Not Given Nitroglycerin (Nitro-Bid 2% Oint) 1 ea TOP Q8 [facility] Last Admin: 01/08/18 05:55 Dose: 1 ea Pantoprazole Sodium (Protonix Ec Tab) 20 mg PO 0600 [facility] Last Admin: 01/08/18 05:52 Dose: Not Given Tamsulosin HCl (Flomax) 0.4 mg PO DAILY [facility] Last Admin: 01/08/18 10:44 Dose: 0.4 mg Results - Vital Signs Recent Vital Signs: Last Vital Signs Temp 98 F 01/08/18 06:00 Pulse 90 01/08/18 06:00 Resp 20 01/08/18 06:00 BP 151/82 H 01/08/18 06:00 Pulse Ox 92 L 01/07/18 06:00 - Labs Result Diagrams: 01/08/18 07:20 01/08/18 07:20 Labs: Laboratory Results - last 24 hr 01/08/18 01/08/18 07:20 07:20 WBC 5.0 D RBC 2.83 L Hgb 7.8 L Hct 25.4 L MCV 89.8 MCH 27.6 MCHC 30.7 L RDW 18.7 H Plt Count 178 MPV 9.6 Gran % 78.8 H Lymph % (Auto) 8.3 L [place] % (Auto) 12.5 H Eos % (Auto) 0.2 L Baso % (Auto) 0.2 Gran # 3.96 Lymph # (Auto) 0.4 L [place] # (Auto) 0.6 Eos # (Auto) 0.0 Baso # (Auto) 0.01 Sodium 148 Potassium 4.2 Chloride 120 H Carbon Dioxide 26 Anion Gap 6 L BUN 37 H Creatinine 1.9 H Est GFR ( Amer) 41 Est GFR (Non-Af Amer) 34 Random Glucose 83 Calcium 10.0 Phosphorus 3.1 Magnesium 2.2 Total Bilirubin 0.7 AST 39 ALT 33 Alkaline Phosphatase 105 Total Protein 6.3 Albumin 2.9 L Globulin 3.5 Albumin/Globulin Ratio 0.8 L Assessment & Plan - Assessment and Plan (Free Text) Assessment: 87 yr old male who was admitted with encephalopathy and was thought to have some right sided weakness with dysarthria. However, he has no new stroke, as per CT scan head and there is no new hemorrhage. He does have a metabolic encephalopathy due to his infection, which is improving. At this point, we will sign off as neurology consultants. Thank you Dr. patterson All medical record entries made by the Resident were at my direction and personally dictated by me. I have reviewed the chart and agree that the record accurately reflects my personal performance of the history, physical exam, [facility] decision making, and the department course for this patient. I have also personally directed, reviewed, and agree with the discharge instructions and disposition.
--- NOTE | 2018-01-07 09:37 | CP.PCM.PN ---
<Nicolette Harperhan - Last Filed: 01/07/18 18:26> Subjective - Date & Time of Evaluation Date of Evaluation: 01/07/18 Time of Evaluation: 09:32 - Subjective Subjective: Patient sitting in chair, appears appropriate but disoriented. No signs of bleeding. He has been NPO. Objective - Vital Signs/Intake and Output Vital Signs (last 24 hours): Temp Pulse Resp BP Pulse Ox 98.1 F 98 H 20 162/79 H 92 L 01/07/18 06:00 01/07/18 06:00 01/07/18 06:00 01/07/18 06:00 01/07/18 06:00 Intake and Output: 01/07/18 01/07/18 06:59 18:59 Intake Total 60 Output Total 725 Balance -665 - Medications Medications: Current Medications Acetaminophen (Tylenol 325mg Tab) 650 mg PO Q6H PRN PRN Reason: Fever >100.4 F Last Admin: 12/31/17 01:25 Dose: 650 mg Albuterol/Ipratropium (Duoneb 3 Mg/0.5 Mg (3 Ml) Ud) 3 ml IH [id number] PRN PRN Reason: Shortness of Breath Last Admin: 12/26/17 19:55 Dose: 3 ml Albuterol/Ipratropium (Duoneb 3 Mg/0.5 Mg (3 Ml) Ud) 3 ml IH [id number] [facility] Last Admin: 01/07/18 07:30 Dose: 3 ml Arformoterol Tartrate (Brovana) 15 mcg IH [id number] [facility] Last Admin: 01/07/18 07:30 Dose: 15 mcg Aspirin (Ecotrin) 81 mg PO DAILY [facility] Last Admin: 01/06/18 15:04 Dose: Not Given Budesonide (Pulmicort Respules) 0.5 mg IH [id number] [facility] Last Admin: 01/07/18 07:30 Dose: 0.5 mg Calcitriol (Rocaltrol) 0.5 mcg PO DAILY [facility] Last Admin: 01/06/18 15:05 Dose: Not Given Furosemide (Lasix) 40 mg IV DAILY [facility] Last Admin: 01/06/18 15:00 Dose: 40 mg diltiaZEM IVPB 100mg in NS (Cardizem 100mg In Ns) 100 mls @ 5 mls/hr IV .Q20H PRN; Protocol PRN Reason: TITRATE PER MD ORDER Last Admin: 01/06/18 17:19 Dose: 5 mg/hr, 5 mls/hr Dextrose (Dextrose 5% In Water 1000 Ml) 1,000 mls @ 100 mls/hr IV .Q10H [facility] Isosorbide Mononitrate (Imdur Er) 30 mg PO DAILY [facility] Last Admin: 01/06/18 15:04 Dose: Not Given Levothyroxine Sodium (Synthroid) 25 mcg PO 0600 [facility] Last Admin: 01/07/18 06:39 Dose: Not Given Memantine (Namenda) 10 mg PO DAILY [facility] Last Admin: 01/06/18 15:05 Dose: Not Given Montelukast Sodium (Singulair) 10 mg PO HS [facility] Last Admin: 01/06/18 22:03 Dose: Not Given Nitroglycerin (Nitro-Bid 2% Oint) 1 ea TOP Q8 [facility] Last Admin: 01/07/18 06:38 Dose: 1 ea Pantoprazole Sodium (Protonix Ec Tab) 20 mg PO 0600 [facility] Last Admin: 01/07/18 06:38 Dose: Not Given Tamsulosin HCl (Flomax) 0.4 mg PO DAILY [facility] Last Admin: 01/06/18 15:04 Dose: Not Given - Labs Labs: 01/07/18 05:50 01/07/18 05:50 PT 14.5 SECONDS (9.4-12.5) H 01/05/18 07:00 INR 1.26 01/05/18 07:00 APTT 32.8 Seconds (25.1-36.5) 01/05/18 07:00 - Constitutional Appears: Non-toxic, No Acute Distress, Chronically Ill - Head Exam Head Exam: NORMAL INSPECTION - Eye Exam Eye Exam: Normal appearance - ENT Exam ENT Exam: Mucous Membranes Dry - Respiratory Exam Respiratory Exam: NORMAL BREATHING PATTERN - Cardiovascular Exam Cardiovascular Exam: Irregular Rhythm, +S1, +S2 - GI/Abdominal Exam GI & Abdominal Exam: Soft, Normal Bowel Sounds. absent: Tenderness - Extremities Exam Extremities Exam: Normal Inspection - Neurological Exam Neurological Exam: Alert, Awake, Oriented x3 - Psychiatric Exam Psychiatric exam: Normal Affect, Normal Mood - Skin Skin Exam: Dry, Normal Color Assessment and Plan - Assessment and Plan (Free Text) Assessment: 87 year old male with past medical history of COPD, CHF s/p AICD, HTN, CAD s/p CABG, CKD stage IV, dementia, iron deficiency anemia, hx of gastritis, HLD with severe anemia. Patient s/p colonoscopy and EGD showing multiple non bleeding AVM. Patient with no reports of blood per rectum or hemoptysis Plan: Aemia likely secondary to urethra trauma Acute blood loss anemia due to GI bleed Possible acute CVA 01/04/18 Dysphagia NSTEMI-cardiology following AFib w. RVR Sepsis secondary to MSSA bacteremia with unclear source Demenita HTN HLD CHF s/p AICD (EF of 55%) Hypernatremia Malnourished - EGD 12/25/17 Shows gastric and duodenal bulb AVMs. Gastric AVM had active bleeding and was injected with epi and clipped, f/u Pathology - Monitor H/H with serial CBC, transfuse if symptomatic or hgb<7. Currently st able. - ID following for bacteremia, ruling out endocarditis vs. pacemaker infection vs. HCAP - Antibiotics as per ID - Continue PPI - Given possibility of stroke and afib, patient may need to be anticoagulated. Okay from GI standpoint to start OAC however timing should be based on neuro and urology recs. - We will follow as patient may need a PEG if he cannot pass swallow eval, and remains to be high risk for aspiration. Defer to primary team and family discussions. - PPN order placed. <Mathieu,Kovil V - Last Filed: 01/07/18 23:15> Objective - Vital Signs/Intake and Output Vital Signs (last 24 hours): Temp Pulse Resp BP Pulse Ox 97.4 F L 86 18 170/86 H 92 L 01/07/18 17:30 01/07/18 17:30 01/07/18 17:30 01/07/18 17:30 01/07/18 06:00 Intake and Output: 01/07/18 01/08/18 18:59 06:59 Intake Total 0 Output Total 550 Balance -550 - Medications Medications: Current Medications Acetaminophen (Tylenol 325mg Tab) 650 mg PO Q6H PRN PRN Reason: Fever >100.4 F Last Admin: 12/31/17 01:25 Dose: 650 mg Albuterol/Ipratropium (Duoneb 3 Mg/0.5 Mg (3 Ml) Ud) 3 ml IH [id number] PRN PRN Reason: Shortness of Breath Last Admin: 12/26/17 19:55 Dose: 3 ml Albuterol/Ipratropium (Duoneb 3 Mg/0.5 Mg (3 Ml) Ud) 3 ml IH [id number] [facility] Last Admin: 01/07/18 19:40 Dose: 3 ml Arformoterol Tartrate (Brovana) 15 mcg IH [id number] [facility] Last Admin: 01/07/18 19:40 Dose: 15 mcg Aspirin (Ecotrin) 81 mg PO DAILY [facility] Last Admin: 01/07/18 10:35 Dose: Not Given Budesonide (Pulmicort Respules) 0.5 mg IH [id number] [facility] Last Admin: 01/07/18 19:40 Dose: 0.5 mg Calcitriol (Rocaltrol) 0.5 mcg PO DAILY [facility] Last Admin: 01/07/18 10:36 Dose: Not Given Furosemide (Lasix) 40 mg IV DAILY [facility] Last Admin: 01/06/18 15:00 Dose: 40 mg diltiaZEM IVPB 100mg in NS (Cardizem 100mg In Ns) 100 mls @ 5 mls/hr IV .Q20H PRN; Protocol PRN Reason: TITRATE PER MD ORDER Last Admin: 01/06/18 17:19 Dose: 5 mg/hr, 5 mls/hr Daptomycin 480 mg/ Sodium (Chloride) 100 mls @ 200 mls/hr IV Q24H [facility] Stop: 02/04/18 12:16 Last Admin: 01/07/18 16:07 Dose: 200 mls/hr Amino Acids (Clinimix 4.25/5 % "E" (1000 Ml)) 1,000 mls @ 40 mls/hr IV .Q24H [facility] Sodium Chloride (Sodium Chloride 0.45%) 1,000 mls @ 50 mls/hr IV .Q20H [facility] Last Admin: 01/07/18 18:57 Dose: 50 mls/hr Isosorbide Mononitrate (Imdur Er) 30 mg PO DAILY [facility] Last Admin: 01/06/18 15:04 Dose: Not Given Levothyroxine Sodium (Synthroid) 25 mcg PO 0600 [facility] Last Admin: 01/07/18 06:39 Dose: Not Given Memantine (Namenda) 10 mg PO DAILY [facility] Last Admin: 01/07/18 10:36 Dose: Not Given Montelukast Sodium (Singulair) 10 mg PO HS [facility] Last Admin: 01/06/18 22:03 Dose: Not Given Nitroglycerin (Nitro-Bid 2% Oint) 1 ea TOP Q8 [facility] Last Admin: 01/07/18 16:07 Dose: 1 ea Pantoprazole Sodium (Protonix Ec Tab) 20 mg PO 0600 [facility] Last Admin: 01/07/18 06:38 Dose: Not Given Tamsulosin HCl (Flomax) 0.4 mg PO DAILY [facility] Last Admin: 01/07/18 10:35 Dose: Not Given - Labs Labs: 01/07/18 05:50 01/07/18 05:50 PT 14.5 SECONDS (9.4-12.5) H 01/05/18 07:00 INR 1.26 01/05/18 07:00 APTT 32.8 Seconds (25.1-36.5) 01/05/18 07:00 Attending/Attestation - Attestation I have personally seen and examined this patient.: Yes I have fully participated in the care of the patient.: Yes I have reviewed all pertinent clinical information, including history, physical exam and plan: Yes Notes (Text): This is an addendum to GI progress report dictated by the GI Fellow.The patient was seen and examined earlier. Medical records, lab studies, imagings were reviewed. Last 24 hours events reviewed. Agreed with the above treatment plan as outlined in GI Fellow 's notes with the addition of the following HCT stable No obvious melena or bleeding per rectum Ordered PPN one real problem to consider before considering the placement of G tube in this patient is risk of patient pulling out G tube Will discuss with PCP again regarding this 01/07/18 23:10
--- NOTE | 2018-01-07 09:47 | PN ---
DATE: 01/06/2018 LOCATION: The patient is in room 263, bed 1. REASON FOR CONSULTATION AND FOLLOWUP: The patient who is a resident of [facility] was admitted with low hemoglobin, history of COPD, chronic diastolic CHF, hypertension, hyperlipidemia, dementia, anemia, coronary artery disease, CABG, cardiomyopathy, LVEF from echo 20%, AICD insertion. Was admitted with acute renal injury, severe anemia. Blood transfusions were given. The patient has history of iron infusion and GI workup had EGD with clipping and biopsy. Active bleeding with multiple duodenal arteriovenous malformations, gastric arteriovenous malformations. The patient confused, lying flat in bed without any respiratory distress. The patient's chest x-ray is suggestive of congestive changes. The patient failed swallowing evaluation, so the patient has been n.p.o. at present. The patient also went into atrial fibrillation, converted with Cardizem. The patient is on 5 mg drip of Cardizem. The patient's troponin elevated, but the patient not a candidate for any intervention therapy due to dementia and other comorbidities. The patient is being treated with medical therapy. Troponin yesterday was 1.69, today is 1.26. The patient's BNP is 66,200. Since the patient is n.p.o., we will start Lasix 40 IV daily and we will also put the patient on nitro paste because the patient cannot take p.o. Imdur at this moment. The patient is on levothyroxine 25 mcg daily. We will continue to monitor the heart rate. We will follow. Radha Jacobson MD
--- NOTE | 2018-01-07 10:01 | PN ---
DATE: 01/04/2018 Patient in room 260, bed 1. Patient was found to have troponin elevation and congestive heart failure. Patient had end-stage renal disease, delirious, dementia. Patient lying flat in bed without any chest pain, shortness of breath, or palpitation. Patient's echo showed [id number] pulmonary hypertension and moderate LV systolic function decrease, moderate MR, moderate TR. Patient's CAT scan of the chest showed left upper lobe infiltrate and small right and left pleural effusion. Patient earlier also had sepsis and patient was not a candidate for ANDRE, same way patient was not a candidate for cardiac catheterization because of dementia and other comorbidities. Patient had been treated medically. I will repeat portable chest x-ray and I will start Lasix 40 mg p.o. daily along with his other medication which will be continued and we will follow with you. Radha Jacobson MD
--- NOTE | 2018-01-07 10:11 | PN ---
DATE: 01/05/2018 SUBJECTIVE: Patient is an 87-year-old male. Patient was seen and examined on 01/05/2018 and looking comfortable. I saw the patient early in the morning before CAT scan. He was little bit confused, but getting out of that. No hemoptysis. No fever, no chills. No hematuria or hematochezia. Later on the evening, I heard from the nursing staff that there was rapid response on him. PHYSICAL EXAMINATION: VITAL SIGNS: Temperature 98.5, pulse 93, blood pressure 158/76, respiratory rate 20. HEENT: Head: Normocephalic and atraumatic. Eyes: PERRLA. Extraocular muscles intact. Conjunctivae clear. Nose patent. Mucous membranes moist. NECK: Supple. No carotid bruit. No JVD or thyromegaly. LUNGS: Few scattered rhonchi. HEART: S1, S2 positive. ABDOMEN: Soft, nontender. No organomegaly. EXTREMITIES: No edema. No cyanosis. NEUROLOGIC: The patient is awake and alert. Follows simple command. MEDICATIONS: Reviewed by me. LABORATORY DATA: White blood cells 8.1, hemoglobin 8.3, hematocrit 27.8, platelets 183. Sodium 145, potassium 4.5, BUN 32, creatinine 2, magnesium 2.2. AST 51, ALT 45. ASSESSMENT AND PLAN: Mr. Graham De Jesus, 87-year-old male with bacteremia, probably at genitourinary region. Mann is dislodged causing trauma to the urethra, but urologist is on the case. Hematuria improved, chronic obstructive pulmonary disease, cardiomyopathy with diastolic and systolic dysfunction, pulmonary hypertension, coronary artery disease, hypercholesterolemia, gastroesophageal reflux disease, dyspepsia, oropharyngeal dysphagia on modified diet. Continue inhaled bronchodilator. Patient went for CAT scan of the head. Has positive airway pressure while sleeping. Gastric prophylaxis. Sequential compression device to lower extremities. Getting oxygen. Gastrointestinal and deep vein thrombosis prophylaxis. Repeat labs. No acute intracranial abnormality. No significant findings to account for the clinical presentation. No significant interval change compared to the prior examination. We will follow up. Irasema Rivas MD
--- NOTE | 2018-01-07 10:36 | PN ---
DATE: 01/04/2018 SUBJECTIVE: Patient is an 87-year-old male. Patient was seen and examined at the bedside on 01/04/2018. Last night, he was a little bit confused because he was not able to use BiPAP, but daytime when I saw the patient, he was awake, alert and was using the nasal cannula. No fever. No chills. No headache. No dizziness. No chest pain. No palpitation. PHYSICAL EXAMINATION: VITAL SIGNS: Temperature 97, pulse 57, respiratory rate 18, blood pressure 135/56, pulse oximetry 100%. HEENT: Head: Normocephalic, atraumatic. Eyes: PERRLA. Extraocular muscles intact. Conjunctivae clear. Nose patent. NECK: Supple. No carotid bruit. No JVD or thyromegaly. CHEST: Bilaterally symmetrical. HEART: S1 and S2 positive. LUNGS: Clear to auscultation. ABDOMEN: Soft. Bowel sounds present. No organomegaly. EXTREMITIES: No edema. No cyanosis. NEUROLOGIC: Patient is awake and alert. Moving all 4 extremities. No focal deficit. MEDICATIONS: Tylenol, DuoNeb, Brovana, aspirin, Lipitor, Pulmicort, calcitriol, Neurontin, hydralazine, daptomycin, isosorbide, levothyroxine, metoprolol. LABORATORY DATA: White blood cells 7.8, hemoglobin 7.7, hematocrit 25.3, platelets 158. Sodium 142, potassium 4.6, BUN 30, creatinine 2.1, glucose 87. ASSESSMENT AND PLAN: Mr. Graham Zuñiga is an 87-year-old male with anemia; hyperchloremia; renal insufficiency; has acute kidney injury on chronic kidney disease stage 4, improved; fever with leukocytosis secondary to Staphylococcus aureus bacteremia; lesvk-ke-pjowfqg anemia; bleeding arteriovenous malformation lesions injected and clipped by Dr. Murdock; gastritis; hematuria; secondary hyperparathyroidism; hypervolemia; iron deficiency anemia; hyperkalemia, improved; essential hypertension, improving; obstructive sleep apnea syndrome. Should be using BiPAP everyday. Blood cultures positive for methicillin-resistant Staphylococcus aureus. Creatinine is stable, improved from yesterday. Continue calcitriol for secondary hyperparathyroidism. Patient is receiving Venofer for iron deficiency and total 6 units of packed red blood cells for blood loss. GI is on the case. We will continue present treatment. Repeat labs. We will follow up. Irasema Rivas MD [id number]
--- NOTE | 2018-01-07 10:45 | CP.PCM.PN ---
<Cruz Blakely - Last Filed: 01/07/18 17:59> Subjective - Date & Time of Evaluation Date of Evaluation: 01/07/18 Time of Evaluation: 07:45 - Subjective Subjective: Cruz Blakely PGY2 IM Progress Note for Dr. Andrade Patient was seen and examined at bedside. There were no acute overnight events. VS and labs were reviewed. Patient remains NPO Objective - Vital Signs/Intake and Output Vital Signs (last 24 hours): Temp Pulse Resp BP Pulse Ox 98.1 F 98 H 20 162/79 H 92 L 01/07/18 06:00 01/07/18 06:00 01/07/18 06:00 01/07/18 06:00 01/07/18 06:00 Intake and Output: 01/07/18 01/07/18 06:59 18:59 Intake Total 60 Output Total 725 Balance -665 - Medications Medications: Current Medications Acetaminophen (Tylenol 325mg Tab) 650 mg PO Q6H PRN PRN Reason: Fever >100.4 F Last Admin: 12/31/17 01:25 Dose: 650 mg Albuterol/Ipratropium (Duoneb 3 Mg/0.5 Mg (3 Ml) Ud) 3 ml IH [id number] PRN PRN Reason: Shortness of Breath Last Admin: 12/26/17 19:55 Dose: 3 ml Albuterol/Ipratropium (Duoneb 3 Mg/0.5 Mg (3 Ml) Ud) 3 ml IH [id number] [facility] Last Admin: 01/07/18 07:30 Dose: 3 ml Arformoterol Tartrate (Brovana) 15 mcg IH [id number] [facility] Last Admin: 01/07/18 07:30 Dose: 15 mcg Aspirin (Ecotrin) 81 mg PO DAILY [facility] Last Admin: 01/07/18 10:35 Dose: Not Given Budesonide (Pulmicort Respules) 0.5 mg IH [id number] [facility] Last Admin: 01/07/18 07:30 Dose: 0.5 mg Calcitriol (Rocaltrol) 0.5 mcg PO DAILY [facility] Last Admin: 01/07/18 10:36 Dose: Not Given Furosemide (Lasix) 40 mg IV DAILY [facility] Last Admin: 01/06/18 15:00 Dose: 40 mg diltiaZEM IVPB 100mg in NS (Cardizem 100mg In Ns) 100 mls @ 5 mls/hr IV .Q20H PRN; Protocol PRN Reason: TITRATE PER MD ORDER Last Admin: 01/06/18 17:19 Dose: 5 mg/hr, 5 mls/hr Dextrose (Dextrose 5% In Water 1000 Ml) 1,000 mls @ 100 mls/hr IV .Q10H [facility] Last Admin: 01/07/18 10:34 Dose: 100 mls/hr Isosorbide Mononitrate (Imdur Er) 30 mg PO DAILY [facility] Last Admin: 01/06/18 15:04 Dose: Not Given Levothyroxine Sodium (Synthroid) 25 mcg PO 0600 [facility] Last Admin: 01/07/18 06:39 Dose: Not Given Memantine (Namenda) 10 mg PO DAILY [facility] Last Admin: 01/07/18 10:36 Dose: Not Given Montelukast Sodium (Singulair) 10 mg PO HS [facility] Last Admin: 01/06/18 22:03 Dose: Not Given Nitroglycerin (Nitro-Bid 2% Oint) 1 ea TOP Q8 [facility] Last Admin: 01/07/18 06:38 Dose: 1 ea Pantoprazole Sodium (Protonix Ec Tab) 20 mg PO 0600 [facility] Last Admin: 01/07/18 06:38 Dose: Not Given Tamsulosin HCl (Flomax) 0.4 mg PO DAILY [facility] Last Admin: 01/07/18 10:35 Dose: Not Given - Labs Labs: 01/07/18 05:50 01/07/18 05:50 PT 14.5 SECONDS (9.4-12.5) H 01/05/18 07:00 INR 1.26 01/05/18 07:00 APTT 32.8 Seconds (25.1-36.5) 01/05/18 07:00 - Constitutional Appears: Well, No Acute Distress - Head Exam Head Exam: NORMAL INSPECTION - Eye Exam Eye Exam: Normal appearance - ENT Exam ENT Exam: Mucous Membranes Moist - Neck Exam Neck Exam: Normal Inspection - Respiratory Exam Respiratory Exam: NORMAL BREATHING PATTERN - Cardiovascular Exam Cardiovascular Exam: RRR - GI/Abdominal Exam GI & Abdominal Exam: Soft. absent: Tenderness - Extremities Exam Extremities Exam: absent: Pedal Edema - Back Exam Back Exam: NORMAL INSPECTION - Neurological Exam Neurological Exam: Alert - Psychiatric Exam Psychiatric exam: Normal Mood - Skin Skin Exam: Normal Color Assessment and Plan - Assessment and Plan (Free Text) Assessment: 87-year-old male with a PMH of CKD stage III, COPD, CHF, CAD post CABG who presented to the ED with urinary retention, found to have MRSA in the urine and blood. A KI on CKD is noted likely due to urinary retention. Hypernatremia also noted. Secondary hyperparathyroidism noted due to CKD. Chronic anemia is also noted. Labs and VS reviewed. - No plan for renal replacement at this time - continue calcitriol for secondary hyperparathyriodism - ID consulted for fevers and bactremia - GI consulted for blood loss and AVM - Will continue to monitor kidney function and electrolytes - Continue to monitor I&O - Further recs per Dr. Andrade Case was reviewed and discussed with attending, Dr. Raymond Blakely PGY2 <Spencer Andrade S - Last Filed: 01/07/18 20:45> Objective - Vital Signs/Intake and Output Vital Signs (last 24 hours): Temp Pulse Resp BP Pulse Ox 97.4 F L 86 18 170/86 H 92 L 01/07/18 17:30 01/07/18 17:30 01/07/18 17:30 01/07/18 17:30 01/07/18 06:00 Intake and Output: 01/07/18 01/08/18 18:59 06:59 Intake Total 0 Output Total 550 Balance -550 - Medications Medications: Current Medications Acetaminophen (Tylenol 325mg Tab) 650 mg PO Q6H PRN PRN Reason: Fever >100.4 F Last Admin: 12/31/17 01:25 Dose: 650 mg Albuterol/Ipratropium (Duoneb 3 Mg/0.5 Mg (3 Ml) Ud) 3 ml IH [id number] PRN PRN Reason: Shortness of Breath Last Admin: 12/26/17 19:55 Dose: 3 ml Albuterol/Ipratropium (Duoneb 3 Mg/0.5 Mg (3 Ml) Ud) 3 ml IH [id number] [facility] Last Admin: 01/07/18 19:40 Dose: 3 ml Arformoterol Tartrate (Brovana) 15 mcg IH [id number] [facility] Last Admin: 01/07/18 19:40 Dose: 15 mcg Aspirin (Ecotrin) 81 mg PO DAILY [facility] Last Admin: 01/07/18 10:35 Dose: Not Given Budesonide (Pulmicort Respules) 0.5 mg IH [id number] [facility] Last Admin: 01/07/18 19:40 Dose: 0.5 mg Calcitriol (Rocaltrol) 0.5 mcg PO DAILY [facility] Last Admin: 01/07/18 10:36 Dose: Not Given Furosemide (Lasix) 40 mg IV DAILY [facility] Last Admin: 01/06/18 15:00 Dose: 40 mg diltiaZEM IVPB 100mg in NS (Cardizem 100mg In Ns) 100 mls @ 5 mls/hr IV .Q20H PRN; Protocol PRN Reason: TITRATE PER MD ORDER Last Admin: 01/06/18 17:19 Dose: 5 mg/hr, 5 mls/hr Daptomycin 480 mg/ Sodium (Chloride) 100 mls @ 200 mls/hr IV Q24H [facility] Stop: 02/04/18 12:16 Last Admin: 01/07/18 16:07 Dose: 200 mls/hr Amino Acids (Clinimix 4.25/5 % "E" (1000 Ml)) 1,000 mls @ 40 mls/hr IV .Q24H [facility] Sodium Chloride (Sodium Chloride 0.45%) 1,000 mls @ 50 mls/hr IV .Q20H [facility] Last Admin: 01/07/18 18:57 Dose: 50 mls/hr Isosorbide Mononitrate (Imdur Er) 30 mg PO DAILY [facility] Last Admin: 01/06/18 15:04 Dose: Not Given Levothyroxine Sodium (Synthroid) 25 mcg PO 0600 [facility] Last Admin: 01/07/18 06:39 Dose: Not Given Memantine (Namenda) 10 mg PO DAILY [facility] Last Admin: 01/07/18 10:36 Dose: Not Given Montelukast Sodium (Singulair) 10 mg PO HS [facility] Last Admin: 01/06/18 22:03 Dose: Not Given Nitroglycerin (Nitro-Bid 2% Oint) 1 ea TOP Q8 [facility] Last Admin: 01/07/18 16:07 Dose: 1 ea Pantoprazole Sodium (Protonix Ec Tab) 20 mg PO 0600 [facility] Last Admin: 01/07/18 06:38 Dose: Not Given Tamsulosin HCl (Flomax) 0.4 mg PO DAILY [facility] Last Admin: 01/07/18 10:35 Dose: Not Given - Labs Labs: 01/07/18 05:50 01/07/18 05:50 PT 14.5 SECONDS (9.4-12.5) H 01/05/18 07:00 INR 1.26 01/05/18 07:00 APTT 32.8 Seconds (25.1-36.5) 01/05/18 07:00 Assessment and Plan - Assessment and Plan (Free Text) Assessment: Pt seen and examined. I have reviewed the note of the medical affairs leader and agree with it. I have discussed the assessment and plan with the resident. I have reviewed the patient's labs and medications. Pt with CKD-3 that is stable. UZAIR has improved. The pt had Iron def anemia and was given IV Iron. Cr is stable. Pt with hypernatremia. He is not drinking much fluid. Will hold lasix and place on D5W for free water. Follow Na.
--- NOTE | 2018-01-07 11:34 | PN ---
DATE: 01/05/2018 LOCATION: Patient in room 260, bed 1. REASON FOR CONSULTATION AND FOLLOWUP: Sepsis, cardiomyopathy, CHF, dementia, hypertension, COPD. LV ejection fraction 20%, AICD insertion. Patient clinically cardiac status had been stable. Patient's multiple blood cultures initially showed methicillin-resistant staph aureus and repeat blood cultures on 01/01 and 01/03 were negative. Patient's initial echocardiogram on 01/01/2018, did not show any vegetations. Patient has been receiving antibiotics and the therapy and clinically is stable. Reviewed Dr. Fairbanks's progress note today. Suggested to repeat another echo next week. So in the meantime, I started him on Lasix yesterday. Chest x-ray done yesterday did show poor penetrated film suggestive of mild pulmonary venous congestion. We will continue present therapy and will follow up. Radha Jacobson MD
[2018-01-07] MEDS ORDERED: DAPTOmycin 500 mg Inj (Cubicin) IVP SCH (12:00)
--- NOTE | 2018-01-07 16:19 | PN ---
DATE: 01/07/2018 REASON FOR CONSULTATION AND FOLLOWUP: Non-ST segment myocardial infarction, anemia, bleed, altered mental status. The patient is confused, sleeping and waking. SUBJECTIVE: Denies any chest pain, shortness of breath, or any palpitations. OBJECTIVE: GENERAL: Not in apparent distress. VITAL SIGNS: Temperature afebrile, heart rate 74, and blood pressure 162/79. HEENT: PERRLA. Extraocular muscles intact. NECK: Supple. No carotid bruit or thyromegaly. CHEST: Clear to auscultation. HEART: S1 and S2, regular. ABDOMEN: Soft. EXTREMITIES: Clubbing and cyanosis negative. The patient is n.p.o. Being evaluated for swallowing evaluation, pending. LABORATORY DATA: WBC of 7.8, hemoglobin , hematocrit 28.8, and platelet count 222. Chemistry shows sodium 150, potassium 4.9, chloride 119, carbon dioxide 12, anion gap of 45, BUN 45, and creatinine 2.1. Troponin 1.69 trending down to 1.26 today. BNP is 66,200. IMPRESSION: An 87-year-old male with past medical history significant for coronary artery disease, coronary artery bypass graft, altered mental status, admitted with genitourinary bleed, status post 5 units of packed RBC transfusion, was on positive restraint, one-to-one at one point and also pulled the Mann catheter multiple times leading to severe genitourinary bleed. The patient at one point complained of chest pain. Troponin was positive trending down. The patient is n.p.o. because of difficulty in swallowing, awaiting to go for swallowing evaluation, pending. For patient's swallowing evaluation, we will start p.o. medications. For now continue Cardizem. The patient had endoscopy and esophagogastroduodenoscopy done and clipping the biopsy. The patient went briefly into atrial fibrillation, converted to normal sinus, currently on Cardizem. Not a candidate for long-term anticoagulation though the patient had non-ST segment myocardial infarction, but not a candidate to go to the process laboratory specialist for invasive procedure because of massive genitourinary bleed without any medication as well as history of gastrointestinal bleed as well as altered mental status and patient asymptomatic. RECOMMENDATIONS: Continue Cardizem for now. Since the patient is n.p.o., we will change to every 6 hours swallowing evaluation. Once the evaluation is done and the patient is able to swallow, we will change back to p.o. nitrates and p.o. beta-gina. For now, continue Cardizem to control the heart rate and the blood pressure. Monitor H and H . Supplement H and H if the hemoglobin goes below 8. Since the patient has hypernatremia, we will start half normal saline at 50 mL an hour. Though patient's BNP is elevated, but the patient is clinically not in not in CHF. We will monitor and question of hydration, because the patient has a decreased ejection fraction and cardiomyopathy. History of moderate decreased LV function, moderate TR, moderate mitral regurgitation. Thank you, Dr. Rivas, for providing us the opportunity in taking care of patient, Faraz Zuñiga. Radha Woodward MD
[2018-01-07] MEDS ORDERED: Sodium Chloride 0.45% 1,000 ML IV SCH (17:30)
--- NOTE | 2018-01-07 19:12 | PN ---
DATE: 01/07/2018 SUBJECTIVE: Patient is in bed, in no acute distress. No fevers, no chills, no nausea, no vomiting. Patient was seen earlier this morning. He is chronically ill and debilitated. PHYSICAL EXAMINATION: VITAL SIGNS: Temperature is 97, blood pressure is 170/80, and respiratory rate of 18. HEENT: Unremarkable. NECK: Supple. LUNGS: Decreased breath sounds. HEART: Normal S1, S2. ABDOMEN: Soft, nontender. LABORATORY EXAMINATION: Reveals the patient to have a white count of 7.2, hemoglobin of 8. BUN of 45, creatinine of 2.1. Serology is reviewed. Microbiology is reviewed. ASSESSMENT AND PLAN: This is an 87-year-old male with history of coronary artery disease, coronary bypass graft, pacemaker, chronic obstructive lung disease, cardiomyopathy, hypertension with sepsis, idiopathic thrombocytopenic purpura, methicillin-resistant Staphylococcus aureus bacteremia, non-ST myocardial infarction. Day #5 of 28 days, currently on daptomycin. Should have CBC, SMA-18, sed rate, C-reactive protein, and CPK. Once weekly, we will repeat an echo. Ideally should have transesophageal echo. Case discussed with Dr. Woodward. Thor Fairbanks MD
[2018-01-08] MEDS: Albuterol-Ipratrop 3 mg / 0.5 (3 ml) UD IH SCH ×4 (01:27→20:30)
--- NOTE | 2018-01-08 04:03 | PN ---
DATE: 01/07/2018 REFERRING PHYSICIAN: Dr. Rivas. SUBJECTIVE: He is sitting up in a chair, feels much better, much more awake and alert. Being n.p.o. because of recurrent aspiration. No nausea, no vomiting, no diarrhea. Still has a Mann catheter with clear urine. No leg pain or leg swelling. OBJECTIVE: GENERAL: In no acute distress. VITAL SIGNS: Temperature is 98, heart rate is 86, respiratory rate is 18, blood pressure 170/86, pulse ox is 92% on BiPAP this morning. HEENT: Moist mucous membrane. Crowded airway. NECK: Supple. No JVD. LUNGS: Have a few scattered rhonchi, crackles at the bases. HEART: S1 and S2. ABDOMEN: Soft, nontender, no organomegaly. EXTREMITIES: No edema. NEUROLOGIC: Awake and alert, follows simple command. MEDICATIONS: He is on Brovana inhaled twice a day, diltiazem IV drip, also started on Clinimix 40 mL per hour, daptomycin mg daily, DuoNeb every 4 hours p.r.n. and every 6 hours [id number], Ecotrin 81 mg daily, Flomax 0.4 mg daily, Imdur ER 40 mg daily, Namenda 10 mg daily, Nitro-Bid every 8 hours, Protonix 20 mg daily, Pulmicort inhaled twice a day, calcitriol 0.5 mg daily, Singulair 10 mg daily, IV fluid half-normal saline 50 mL per hour, Synthroid 25 mcg daily, Tylenol p.r.n. basis. LABORATORY DATA: Shows hemoglobin 8.7, hematocrit 28.8, WBC 7.2, platelet is 222. Sodium 150, potassium 4.9, chloride 119, bicarbonate 24, BUN 45, creatinine 2.1, glucose 111, calcium is 10.4. ProBNP 66,200. Microbiology, repeat blood culture so far is negative. Regional culture has MRSA. IMPRESSION AND PLAN: Staph bacteremia status post hematuria requiring 4 units of packed red blood cells, obstructive lung disease, cardiomyopathy with systolic and diastolic dysfunction, pulmonary hypertension, coronary artery disease, hyperlipidemia, has a history of gastro-angiopathy, oropharyngeal dysphagia, may have sleep apnea syndrome. Apparently, Lasix is placed on hold by Cardiology, Dr. Woodward. I personally spoke to him, he feels the patient is clinically in heart failure. He will follow up closely with p.r.n. diuretics. I spoke to nursing staff. Awaiting to be seen by Speech Therapy, presently much more awake and alert. Also spoke to nursing staff to DC Mann catheter, check bladder scan every shift, may straight cath urine, retention is more than 250 mL. He definitely had waxing and waning mental status, could have a transient ischemic attack type of picture, understanding risk of bleed. May benefit with anticoagulation. GI already cleared it. According to Cardiology, Mann catheter is out. They may start him on anticoagulation. We will continue BiPAP while sleeping. Fall precaution. Bronchodilator. Follow up labs in the morning. Thank you and we will follow with you. Radha Vail MD
[2018-01-08] MEDS: Levothyroxine 25 MCG TAB PO SCH (05:52)
[2018-01-08] MEDS: Pantoprazole 20 mg EC Tab PO SCH (05:52)
[2018-01-08] MEDS: diltiaZEM IVPB 100mg in NS 100 ML IV PRN (05:55)
[2018-01-08] MEDS: Nitroglycerin 2% Ointment Foilpak UD TOP SCH ×3 (05:55→21:45)
--- NOTE | 2018-01-08 06:34 | CP.PCM.PN ---
<Saurabh Torres - Last Filed: 01/09/18 07:17> Subjective - Date & Time of Evaluation Date of Evaluation: 01/08/18 Time of Evaluation: 10:20 - Subjective Subjective: Subjective: CC: Altered Mental Status HPI: Patient seen and examined at bedside. No acute events overnight. Offers no new complaints at this time. Denies fever, chills, dizziness, visual/auditory changes, chest pain, shortness of breath, nausea, vomiting, diarrhea, constipation, and urinary symptoms. 12 point ROS negative except as indicated in HPI Physical Examination: - Constitutional Appears: No Acute Distress - Head Exam Head Exam: ATRAUMATIC, NORMAL INSPECTION, NORMOCEPHALIC - Eye Exam Eye Exam: EOMI, Normal appearance. absent: Conjunctival injection, Periorbital swelling, Scleral icterus - ENT Exam ENT Exam: Mucous Membranes Moist, Normal External Ear Exam. absent: Mucous Membranes Dry - Neck Exam Neck Exam: Normal Inspection. absent: Meningismus, Tenderness - Respiratory Exam Respiratory Exam: Clear to Ausculation Bilateral, NORMAL BREATHING PATTERN. absent: Accessory Muscle Use, Chest Wall Tenderness, Decreased Breath Sounds, Rales, Respiratory Distress - Cardiovascular Exam Cardiovascular Exam: REGULAR RHYTHM. absent: Bradycardia, Tachycardia, Murmur - GI/Abdominal Exam GI & Abdominal Exam: Soft, Normal Bowel Sounds. absent: Distended, Firm, Guarding, Rigid, Tenderness - Extremities Exam Extremities Exam: Normal Inspection. absent: Calf Tenderness, Joint Swelling, Pedal Edema, Tenderness - Neurological Exam Neurological Exam: Alert, Awake, Oriented x 1 to name, responds to verbals stimuli, follows commands, answers questions appropriately, moves extremities past midline - Psychiatric Exam Psychiatric exam: Normal Affect, Normal Mood. absent: Agitated, Anxious - Skin Skin Exam: Dry, Intact, Normal Color, Warm Assessment and Plan: Patient is a 87 year old male with past medical history of HTN, CHF, CAD s/p CABG, iron deficiency anemia, CKD stage IV, COPD, dementia who came from [facility] for evaluation and treatment of hematuria secondary to trauma from pulling of Mann catheter. Neurology team was consulted for evaluation of altered mental status. Altered Mental Status - 01/05/18 CT Head- No acute intracranial abnormalities. No significant findings to account for the clinical presentation. No significant interval change from previous study. - 01/04/18 CT Head- Generalized atrophy. Nonspecific white matter changes. Chronic appearing lacunar infarcts involving the right thalamus and left basal ganglia. Chronic appearing encephalomalacia, left parietal lobe - history of atrial fibrillation- recommend anticoagulation due to high risk of stroke, [id number]> 2, moderate-high risk, meets criteria for anticoagulation candidate - baseline dementia noted as per records - ensure Hbg > 7 - ensure electrolytes are within normal range, hypernatremia noted- needs to appropriate correction to avoid development of cerebral edema - maintain euglycemia - continue secondary stroke prevention: aspirin, blood pressure control goal SBP 90-150mmHg, lack of tobacco use, proper diet/physical activity - No further neurological intervention at this time Patient seen and case discussed with attending physician, Dr. Patterson. Objective - Vital Signs/Intake and Output Vital Signs (last 24 hours): Temp Pulse Resp BP Pulse Ox 98.5 F 84 20 194/80 H 92 L 01/08/18 00:01 01/08/18 04:30 01/08/18 00:01 01/08/18 00:01 01/07/18 06:00 Intake and Output: 01/07/18 01/08/18 18:59 06:59 Intake Total 100 0 Output Total 550 Balance 100 -550 - Medications Medications: Current Medications Acetaminophen (Tylenol 325mg Tab) 650 mg PO Q6H PRN PRN Reason: Fever >100.4 F Last Admin: 12/31/17 01:25 Dose: 650 mg Albuterol/Ipratropium (Duoneb 3 Mg/0.5 Mg (3 Ml) Ud) 3 ml IH [id number] PRN PRN Reason: Shortness of Breath Last Admin: 12/26/17 19:55 Dose: 3 ml Albuterol/Ipratropium (Duoneb 3 Mg/0.5 Mg (3 Ml) Ud) 3 ml IH [id number] [facility] Last Admin: 01/08/18 01:27 Dose: 3 ml Arformoterol Tartrate (Brovana) 15 mcg IH [id number] [facility] Last Admin: 01/07/18 19:40 Dose: 15 mcg Aspirin (Ecotrin) 81 mg PO DAILY [facility] Last Admin: 01/07/18 10:35 Dose: Not Given Budesonide (Pulmicort Respules) 0.5 mg IH [id number] [facility] Last Admin: 01/07/18 19:40 Dose: 0.5 mg Calcitriol (Rocaltrol) 0.5 mcg PO DAILY [facility] Last Admin: 01/07/18 10:36 Dose: Not Given Furosemide (Lasix) 40 mg IV DAILY [facility] Last Admin: 01/06/18 15:00 Dose: 40 mg diltiaZEM IVPB 100mg in NS (Cardizem 100mg In Ns) 100 mls @ 5 mls/hr IV .Q20H PRN; Protocol PRN Reason: TITRATE PER MD ORDER Last Admin: 01/08/18 05:55 Dose: 5 mg/hr, 5 mls/hr Daptomycin 480 mg/ Sodium (Chloride) 100 mls @ 200 mls/hr IV Q24H [facility] Stop: 02/04/18 12:16 Last Admin: 01/07/18 16:07 Dose: 200 mls/hr Amino Acids (Clinimix 4.25/5 % "E" (1000 Ml)) 1,000 mls @ 40 mls/hr IV .Q24H [facility] Sodium Chloride (Sodium Chloride 0.45%) 1,000 mls @ 50 mls/hr IV .Q20H [facility] Last Admin: 01/07/18 18:57 Dose: 50 mls/hr Isosorbide Mononitrate (Imdur Er) 30 mg PO DAILY [facility] Last Admin: 01/06/18 15:04 Dose: Not Given Levothyroxine Sodium (Synthroid) 25 mcg PO 0600 [facility] Last Admin: 01/08/18 05:52 Dose: Not Given Memantine (Namenda) 10 mg PO DAILY [facility] Last Admin: 01/07/18 10:36 Dose: Not Given Montelukast Sodium (Singulair) 10 mg PO HS [facility] Last Admin: 01/06/18 22:03 Dose: Not Given Nitroglycerin (Nitro-Bid 2% Oint) 1 ea TOP Q8 [facility] Last Admin: 01/08/18 05:55 Dose: 1 ea Pantoprazole Sodium (Protonix Ec Tab) 20 mg PO 0600 [facility] Last Admin: 01/08/18 05:52 Dose: Not Given Tamsulosin HCl (Flomax) 0.4 mg PO DAILY [facility] Last Admin: 01/07/18 10:35 Dose: Not Given - Labs Labs: 01/07/18 05:50 01/07/18 05:50 PT 14.5 SECONDS (9.4-12.5) H 10/20/18 07:00 INR 1.26 01/05/18 07:00 APTT 32.8 Seconds (25.1-36.5) 01/05/18 07:00 <Quang Patterson - Last Filed: 01/10/18 12:59> Objective - Vital Signs/Intake and Output Vital Signs (last 24 hours): Temp Pulse Resp BP Pulse Ox 98.8 F 103 H 20 170/69 H 95 01/09/18 17:52 01/09/18 17:52 01/09/18 17:52 01/09/18 17:52 01/09/18 05:38 - Labs Labs: 01/09/18 09:20 01/09/18 09:20 PT 14.5 SECONDS (9.4-12.5) H 01/05/18 07:00 INR 1.26 01/05/18 07:00 APTT 32.8 Seconds (25.1-36.5) 01/05/18 07:00 Assessment and Plan - Assessment and Plan (Free Text) Assessment: 87 yr old male who is here for encephalopathy, with pacemaker in place who is here for worsening mental status. No seizure was observed. Plan; 1. medical management of infection. Our team will sign off now. Please reconsult prn. Thank you Dr. patterson All medical record entries made by the resident were at my direction and personally dictated by me. I have reviewed the chart and agree that the record accurately reflects my personal performance of the history, physical exam, medical decision making, and the department course for this patient. I have also personally directed, reviewed, and agree with the discharge instructions and disposition.
[2018-01-08 07:41] LABS: BASO # 0.01 K/mm3 (0.0-2.0); BASO % 0.2 % (0.0-3.0); EOS % 0.2 % (1.5-5.0); GRAN # 3.96 (1.4-6.5); GRAN % 78.8 % (50.0-68.0); HEMOGLOBIN 7.8 g/dL (14.0-18.0); LYMPH # 0.4 (1.2-3.4); LYMPH % 8.3 % (22.0-35.0); MEAN CELL VOLUME 89.8 fl (80.0-105.0); MEAN CORPUSCULAR HEMOGLOBIN 27.6 pg (25.0-35.0); MEAN CORPUSCULAR HGB CONC 30.7 g/dl (31.0-37.0); MEAN PLATELET VOLUME 9.6 fl (7.0-11.0); MONO # 0.6 (0.1-0.6); MONO % 12.5 % (1.0-6.0); RBC 2.83 10^6/uL (3.5-6.1); RED CELL DISTRIBUTION WIDTH 18.7 % (11.5-14.5)
[2018-01-08] MEDS: Arformoterol 15 mcg/2 ml Inh Sol IH SCH ×2 (07:50→20:30)
[2018-01-08] MEDS: Budesonide 0.5 mg/2 ml Inhal Susp UD IH SCH ×2 (07:50→20:30)
[2018-01-08 08:04] LABS: ALB/GLOB RATIO 0.8 (1.1-1.8); ALBUMIN 2.9 g/dL (3.0-4.8)
--- NOTE | 2018-01-08 08:07 | PN ---
DATE: 01/07/2018 SUBJECTIVE: The patient is an 87-year-old male. Patient was seen and examined at the bedside on 01/07/2018 and looking comfortable. There is no acute event happened overnight. Swallowing evaluation is done, patient passed the test. Started on thick nectar liquid with pureed. No fever. No chills. No headache. No dizziness. No chest pain. No palpitation. PHYSICAL EXAMINATION: VITAL SIGNS: Temperature 98.1, pulse 98, respiratory rate 20, blood pressure 162/70, pulse oximetry 92%. HEENT: Head: Normocephalic, atraumatic. Eyes: PERRLA. Extraocular muscles intact. Conjunctivae clear. Nose patent. Mucous membrane moist. NECK: Supple. No carotid bruit. No JVD or thyromegaly. CHEST: Bilaterally symmetrical. HEART: S1 and S2 positive. LUNGS: Clear to auscultation. ABDOMEN: Soft. Bowel sounds positive. No organomegaly. EXTREMITIES: No edema. No cyanosis. NEUROLOGIC: Patient is awake, alert. Moving all four extremities. No focal deficits. MEDICATIONS: Tylenol, DuoNeb, Brovana, Ecotrin, Pulmicort, Calcitriol, Lasix, diltiazem, dextrose, Imdur, Synthroid, Namenda, Singulair, Protonix, Flomax. LABORATORY DATA: White blood cell 7.2, hemoglobin 8.7, hematocrit 28.2, platelets 222. Sodium 150, potassium 4.9, BUN 45, creatinine 2.1, glucose 111. ASSESSMENT AND PLAN: Mr. Faraz Zuñiga is an 87-year-old male with anemia, hypernatremia, renal insufficiency, hyperglycemia, past medical history of chronic kidney disease stage III, chronic obstructive pulmonary disease, congestive heart failure, coronary artery disease, status post coronary artery bypass graft, have methicillin-resistant Staphylococcus aureus in the urine and blood, hypernatremia, secondary hyperparathyroidism noted due to chronic kidney disease. According to Nephrology, no plans of renal replacement at this time. Continue Calcitriol for secondary hyperparathyroidism. Infectious Disease is on the case. History of chronic obstructive pulmonary disease, cardiomyopathy, idiopathic thrombocytopenic purpura, methicillin-resistant Staphylococcus aureus bacteremia, [id number] myocardial infarction, day 5 of 28 days, currently on daptomycin. Need labs once a week and according to Hematology, patient needs transesophageal echocardiography. We will discuss with Cardiology. We will follow up. Irasema Rivas MD
--- NOTE | 2018-01-08 09:07 | CP.PCM.PN ---
<Mathieu,Kovil V - Last Filed: 01/08/18 23:52> Objective - Vital Signs/Intake and Output Vital Signs (last 24 hours): Temp Pulse Resp BP Pulse Ox 99.1 F 103 H 20 175/80 H 92 L 01/08/18 18:00 01/08/18 22:00 01/08/18 12:00 01/08/18 12:00 01/07/18 06:00 Intake and Output: 01/08/18 01/09/18 18:59 06:59 Intake Total 570 Output Total 520 500 Balance 50 -500 - Medications Medications: Current Medications Acetaminophen (Tylenol 325mg Tab) 650 mg PO Q6H PRN PRN Reason: Fever >100.4 F Last Admin: 12/31/17 01:25 Dose: 650 mg Albuterol/Ipratropium (Duoneb 3 Mg/0.5 Mg (3 Ml) Ud) 3 ml IH [id number] PRN PRN Reason: Shortness of Breath Last Admin: 12/26/17 19:55 Dose: 3 ml Arformoterol Tartrate (Brovana) 15 mcg IH [id number] [facility] Last Admin: 01/08/18 20:30 Dose: 15 mcg Aspirin (Ecotrin) 81 mg PO DAILY [facility] Last Admin: 01/08/18 10:44 Dose: 81 mg Budesonide (Pulmicort Respules) 0.5 mg IH [id number] [facility] Last Admin: 01/08/18 20:30 Dose: 0.5 mg Calcitriol (Rocaltrol) 0.5 mcg PO DAILY [facility] Last Admin: 01/08/18 10:44 Dose: Not Given Diltiazem HCl (Cardizem Cd) 180 mg PO DAILY [facility] Furosemide (Lasix) 40 mg PO DAILY [facility] Hydralazine HCl (Apresoline) 10 mg PO QID PRN PRN Reason: for sbp >170 Daptomycin 480 mg/ Sodium (Chloride) 100 mls @ 200 mls/hr IV Q24H [facility] Stop: 02/04/18 12:16 Last Admin: 01/08/18 11:48 Dose: 200 mls/hr Isosorbide Mononitrate (Imdur Er) 30 mg PO DAILY [facility] Last Admin: 01/06/18 15:04 Dose: Not Given Levothyroxine Sodium (Synthroid) 25 mcg PO 0600 [facility] Last Admin: 01/08/18 05:52 Dose: Not Given Memantine (Namenda) 10 mg PO DAILY [facility] Last Admin: 01/08/18 10:44 Dose: 10 mg Montelukast Sodium (Singulair) 10 mg PO HS [facility] Last Admin: 01/08/18 21:47 Dose: Not Given Nitroglycerin (Nitro-Bid 2% Oint) 1 ea TOP Q8 [facility] Last Admin: 01/08/18 21:45 Dose: 1 ea Pantoprazole Sodium (Protonix Ec Tab) 20 mg PO 0600 [facility] Last Admin: 01/08/18 05:52 Dose: Not Given Tamsulosin HCl (Flomax) 0.8 mg PO DAILY [facility] - Labs Labs: 01/08/18 07:20 01/08/18 07:20 PT 14.5 SECONDS (9.4-12.5) H 01/05/18 07:00 INR 1.26 01/05/18 07:00 APTT 32.8 Seconds (25.1-36.5) 01/05/18 07:00 Attending/Attestation - Attestation I have personally seen and examined this patient.: Yes I have fully participated in the care of the patient.: Yes I have reviewed all pertinent clinical information, including history, physical exam and plan: Yes Notes (Text): This is an addendum to GI progress report dictated by the GI Fellow.The patient was seen and examined earlier. Medical records, lab studies, imagings were reviewed. Last 24 hours events reviewed. Agreed with the above treatment plan as outlined in GI Fellow 's notes with the addition of the following 01/08/18 23:52 <Vipin Harper - Last Filed: 01/09/18 10:42> Subjective - Date & Time of Evaluation Date of Evaluation: 01/08/18 Time of Evaluation: 09:04 - Subjective Subjective: Patient had eventful night with urinary incontinence, refusing nasal cannula. He is confused and was demanding to leave. LAB AIDE recommends thickened liquids. He states he is not hungry at this time. Objective - Vital Signs/Intake and Output Vital Signs (last 24 hours): Temp Pulse Resp BP Pulse Ox 98 F 90 20 151/82 H 92 L 01/08/18 06:00 01/08/18 06:00 01/08/18 06:00 01/08/18 06:00 01/07/18 06:00 Intake and Output: 01/08/18 01/08/18 06:59 18:59 Intake Total 0 120 Output Total 550 Balance -550 120 - Medications Medications: Current Medications Acetaminophen (Tylenol 325mg Tab) 650 mg PO Q6H PRN PRN Reason: Fever >100.4 F Last Admin: 12/31/17 01:25 Dose: 650 mg Albuterol/Ipratropium (Duoneb 3 Mg/0.5 Mg (3 Ml) Ud) 3 ml IH [id number] PRN PRN Reason: Shortness of Breath Last Admin: 12/26/17 19:55 Dose: 3 ml Albuterol/Ipratropium (Duoneb 3 Mg/0.5 Mg (3 Ml) Ud) 3 ml IH [id number] [facility] Last Admin: 01/08/18 07:50 Dose: 3 ml Arformoterol Tartrate (Brovana) 15 mcg IH [id number] [facility] Last Admin: 01/08/18 07:50 Dose: 15 mcg Aspirin (Ecotrin) 81 mg PO DAILY [facility] Last Admin: 01/07/18 10:35 Dose: Not Given Budesonide (Pulmicort Respules) 0.5 mg IH [id number] [facility] Last Admin: 01/08/18 07:50 Dose: 0.5 mg Calcitriol (Rocaltrol) 0.5 mcg PO DAILY [facility] Last Admin: 01/07/18 10:36 Dose: Not Given Furosemide (Lasix) 40 mg IV DAILY [facility] Last Admin: 01/06/18 15:00 Dose: 40 mg diltiaZEM IVPB 100mg in NS (Cardizem 100mg In Ns) 100 mls @ 5 mls/hr IV .Q20H PRN; Protocol PRN Reason: TITRATE PER MD ORDER Last Admin: 01/08/18 05:55 Dose: 5 mg/hr, 5 mls/hr Daptomycin 480 mg/ Sodium (Chloride) 100 mls @ 200 mls/hr IV Q24H [facility] Stop: 02/04/18 12:16 Last Admin: 01/07/18 16:07 Dose: 200 mls/hr Amino Acids (Clinimix 4.25/5 % "E" (1000 Ml)) 1,000 mls @ 40 mls/hr IV .Q24H [facility] Sodium Chloride (Sodium Chloride 0.45%) 1,000 mls @ 50 mls/hr IV .Q20H [facility] Last Admin: 01/07/18 18:57 Dose: 50 mls/hr Isosorbide Mononitrate (Imdur Er) 30 mg PO DAILY [facility] Last Admin: 01/06/18 15:04 Dose: Not Given Levothyroxine Sodium (Synthroid) 25 mcg PO 0600 [facility] Last Admin: 01/08/18 05:52 Dose: Not Given Memantine (Namenda) 10 mg PO DAILY [facility] Last Admin: 01/07/18 10:36 Dose: Not Given Montelukast Sodium (Singulair) 10 mg PO HS [facility] Last Admin: 01/06/18 22:03 Dose: Not Given Nitroglycerin (Nitro-Bid 2% Oint) 1 ea TOP Q8 [facility] Last Admin: 01/08/18 05:55 Dose: 1 ea Pantoprazole Sodium (Protonix Ec Tab) 20 mg PO 0600 [facility] Last Admin: 01/08/18 05:52 Dose: Not Given Tamsulosin HCl (Flomax) 0.4 mg PO DAILY [facility] Last Admin: 01/07/18 10:35 Dose: Not Given - Labs Labs: 01/08/18 07:20 01/08/18 07:20 PT 14.5 SECONDS (9.4-12.5) H 01/05/18 07:00 INR 1.26 01/05/18 07:00 APTT 32.8 Seconds (25.1-36.5) 01/05/18 07:00 - Constitutional Appears: Non-toxic, No Acute Distress, Chronically Ill - Eye Exam Eye Exam: Normal appearance - Respiratory Exam Respiratory Exam: NORMAL BREATHING PATTERN - Cardiovascular Exam Cardiovascular Exam: Irregular Rhythm, +S1, +S2 - GI/Abdominal Exam GI & Abdominal Exam: Soft, Normal Bowel Sounds. absent: Tenderness - Extremities Exam Extremities Exam: Normal Inspection - Neurological Exam Neurological Exam: Altered - Psychiatric Exam Psychiatric exam: absent: Normal Affect, Normal Mood - Skin Skin Exam: Dry, Normal Color Assessment and Plan - Assessment and Plan (Free Text) Assessment: 87 year old male with past medical history of COPD, CHF s/p AICD, HTN, CAD s/p CABG, CKD stage IV, dementia, iron deficiency anemia, hx of gastritis, HLD with severe anemia. Patient s/p colonoscopy and EGD showing multiple non bleeding AVM. Patient with no reports of blood per rectum or hemoptysis Plan: Anemia likely secondary to urethra trauma Acute blood loss anemia due to GI bleed Possible acute CVA 01/04/18 Dysphagia NSTEMI-cardiology following AFib w. RVR Sepsis secondary to MSSA bacteremia with unclear source Demenita HTN HLD CHF s/p AICD (EF of 55%) Hypernatremia Malnourished - EGD 12/25/17 Shows gastric and duodenal bulb AVMs. Gastric AVM had active bleeding and was injected with epi and clipped, f/u Pathology - Monitor H/H with serial CBC, transfuse if symptomatic or hgb<7. Currently stable. - Antibiotics as per ID - Continue PPI - Given possibility of stroke and afib, patient may need to be anticoagulated. Okay from GI standpoint to start OAC however timing should be based on neuro and urology recs. - PPN order placed we will continue as patient is not compliant with eating. - Okay to start diet per LAB AIDE recs.
--- NOTE | 2018-01-08 09:37 | CP.PCM.PN ---
<Damon Conte - Last Filed: 01/08/18 13:51> Subjective - Date & Time of Evaluation Date of Evaluation: 01/08/18 Time of Evaluation: 07:20 - Subjective Subjective: Damon Conte DO, PGY-2: Nephrology Progress Note for Dr. Stout Patient was seen and examined at bedside. Patient is sleeping with BIPAP on in no acute distress. Nurse reports no adverse events noted overnight. Objective - Vital Signs/Intake and Output Vital Signs (last 24 hours): Temp Pulse Resp BP Pulse Ox 98 F 90 20 151/82 H 92 L 01/08/18 06:00 01/08/18 06:00 01/08/18 06:00 01/08/18 06:00 01/07/18 06:00 Intake and Output: 01/08/18 01/08/18 06:59 18:59 Intake Total 0 120 Output Total 550 Balance -550 120 - Medications Medications: Current Medications Acetaminophen (Tylenol 325mg Tab) 650 mg PO Q6H PRN PRN Reason: Fever >100.4 F Last Admin: 12/31/17 01:25 Dose: 650 mg Albuterol/Ipratropium (Duoneb 3 Mg/0.5 Mg (3 Ml) Ud) 3 ml IH [id number] PRN PRN Reason: Shortness of Breath Last Admin: 12/26/17 19:55 Dose: 3 ml Albuterol/Ipratropium (Duoneb 3 Mg/0.5 Mg (3 Ml) Ud) 3 ml IH [id number] [facility] Last Admin: 01/08/18 07:50 Dose: 3 ml Arformoterol Tartrate (Brovana) 15 mcg IH [id number] [facility] Last Admin: 01/08/18 07:50 Dose: 15 mcg Aspirin (Ecotrin) 81 mg PO DAILY [facility] Last Admin: 01/07/18 10:35 Dose: Not Given Budesonide (Pulmicort Respules) 0.5 mg IH [id number] [facility] Last Admin: 01/08/18 07:50 Dose: 0.5 mg Calcitriol (Rocaltrol) 0.5 mcg PO DAILY [facility] Last Admin: 01/07/18 10:36 Dose: Not Given Furosemide (Lasix) 40 mg IV DAILY [facility] Last Admin: 01/06/18 15:00 Dose: 40 mg diltiaZEM IVPB 100mg in NS (Cardizem 100mg In Ns) 100 mls @ 5 mls/hr IV .Q20H PRN; Protocol PRN Reason: TITRATE PER MD ORDER Last Admin: 01/08/18 05:55 Dose: 5 mg/hr, 5 mls/hr Daptomycin 480 mg/ Sodium (Chloride) 100 mls @ 200 mls/hr IV Q24H [facility] Stop: 02/04/18 12:16 Last Admin: 01/07/18 16:07 Dose: 200 mls/hr Amino Acids (Clinimix 4.25/5 % "E" (1000 Ml)) 1,000 mls @ 40 mls/hr IV .Q24H MARIUSZ Sodium Chloride (Sodium Chloride 0.45%) 1,000 mls @ 50 mls/hr IV .Q20H [facility] Last Admin: 01/07/18 18:57 Dose: 50 mls/hr Isosorbide Mononitrate (Imdur Er) 30 mg PO DAILY [facility] Last Admin: 01/06/18 15:04 Dose: Not Given Levothyroxine Sodium (Synthroid) 25 mcg PO 0600 [facility] Last Admin: 01/08/18 05:52 Dose: Not Given Memantine (Namenda) 10 mg PO DAILY [facility] Last Admin: 01/07/18 10:36 Dose: Not Given Montelukast Sodium (Singulair) 10 mg PO HS [facility] Last Admin: 01/06/18 22:03 Dose: Not Given Nitroglycerin (Nitro-Bid 2% Oint) 1 ea TOP Q8 [facility] Last Admin: 01/08/18 05:55 Dose: 1 ea Pantoprazole Sodium (Protonix Ec Tab) 20 mg PO 0600 [facility] Last Admin: 01/08/18 05:52 Dose: Not Given Tamsulosin HCl (Flomax) 0.4 mg PO DAILY [facility] Last Admin: 01/07/18 10:35 Dose: Not Given - Labs Labs: 01/08/18 07:20 01/08/18 07:20 PT 14.5 SECONDS (9.4-12.5) H 01/05/18 07:00 INR 1.26 01/05/18 07:00 APTT 32.8 Seconds (25.1-36.5) 01/05/18 07:00 - Constitutional Appears: Well, Non-toxic - Head Exam Head Exam: ATRAUMATIC, NORMOCEPHALIC - Eye Exam Eye Exam: EOMI, Normal appearance - ENT Exam ENT Exam: Mucous Membranes Dry - Neck Exam Neck Exam: Normal Inspection - Respiratory Exam Respiratory Exam: Rales. absent: Accessory Muscle Use - Cardiovascular Exam Cardiovascular Exam: RRR, +S1, +S2 - GI/Abdominal Exam GI & Abdominal Exam: Soft, Normal Bowel Sounds - Extremities Exam Extremities Exam: Normal Inspection. absent: Calf Tenderness - Neurological Exam Neurological Exam: absent: Awake - Psychiatric Exam Psychiatric exam: Normal Affect, Normal Mood - Skin Skin Exam: Dry, Intact, Normal Color, Warm Assessment and Plan - Assessment and Plan (Free Text) Assessment: 87-year-old male with a PMH of CKD stage III, COPD, CHF, CAD post CABG who presented to the ED with urinary retention, found to have MRSA in the urine and blood. UZAIR on CKD is noted likely due to urinary retention. Hypernatremia also noted. Secondary hyperparathyroidism noted due to CKD. Chronic anemia is also noted. Labs and VS reviewed. - No plan for renal replacement at this time - UZAIR has resolved and patient is at baseline GFR - recommend dosing antibiotics renally and avoid nephrotoxins - recommend giving D5W for hypernatremia - continue calcitriol for secondary hyperparathyriodism - ID consulted for fevers and bactremia - GI consulted for blood loss and AVM - Will continue to monitor kidney function and electrolytes - Continue to monitor I&O - Further recs per Dr. Andrade - Iron sucrose given for Iron deficiency anemia Case was reviewed and discussed with attending, Dr. Andrade <Spencer Andrade S - Last Filed: 01/08/18 15:36> Objective - Vital Signs/Intake and Output Vital Signs (last 24 hours): Temp Pulse Resp BP Pulse Ox 98.7 F 120 H 20 175/80 H 92 L 01/08/18 12:00 01/08/18 12:00 01/08/18 12:00 01/08/18 12:00 01/07/18 06:00 Intake and Output: 01/08/18 01/08/18 06:59 18:59 Intake Total 0 120 Output Total 550 Balance -550 120 - Medications Medications: Current Medications Acetaminophen (Tylenol 325mg Tab) 650 mg PO Q6H PRN PRN Reason: Fever >100.4 F Last Admin: 12/31/17 01:25 Dose: 650 mg Albuterol/Ipratropium (Duoneb 3 Mg/0.5 Mg (3 Ml) Ud) 3 ml IH [id number] PRN PRN Reason: Shortness of Breath Last Admin: 12/26/17 19:55 Dose: 3 ml Albuterol/Ipratropium (Duoneb 3 Mg/0.5 Mg (3 Ml) Ud) 3 ml IH [id number] [facility] Last Admin: 01/08/18 13:45 Dose: 3 ml Arformoterol Tartrate (Brovana) 15 mcg IH [id number] [facility] Last Admin: 01/08/18 07:50 Dose: 15 mcg Aspirin (Ecotrin) 81 mg PO DAILY [facility] Last Admin: 01/08/18 10:44 Dose: 81 mg Budesonide (Pulmicort Respules) 0.5 mg IH [id number] [facility] Last Admin: 01/08/18 07:50 Dose: 0.5 mg Calcitriol (Rocaltrol) 0.5 mcg PO DAILY [facility] Last Admin: 01/08/18 10:44 Dose: Not Given Diltiazem HCl (Cardizem Cd) 180 mg PO DAILY [facility] Furosemide (Lasix) 40 mg PO DAILY [facility] Hydralazine HCl (Apresoline) 10 mg PO QID PRN PRN Reason: for sbp >170 Daptomycin 480 mg/ Sodium (Chloride) 100 mls @ 200 mls/hr IV Q24H [facility] Stop: 02/04/18 12:16 Last Admin: 01/08/18 11:48 Dose: 200 mls/hr Isosorbide Mononitrate (Imdur Er) 30 mg PO DAILY [facility] Last Admin: 01/06/18 15:04 Dose: Not Given Levothyroxine Sodium (Synthroid) 25 mcg PO 0600 [facility] Last Admin: 01/08/18 05:52 Dose: Not Given Memantine (Namenda) 10 mg PO DAILY [facility] Last Admin: 01/08/18 10:44 Dose: 10 mg Montelukast Sodium (Singulair) 10 mg PO HS [facility] Last Admin: 01/06/18 22:03 Dose: Not Given Nitroglycerin (Nitro-Bid 2% Oint) 1 ea TOP Q8 [facility] Last Admin: 01/08/18 14:54 Dose: 1 ea Pantoprazole Sodium (Protonix Ec Tab) 20 mg PO 0600 [facility] Last Admin: 01/08/18 05:52 Dose: Not Given Tamsulosin HCl (Flomax) 0.4 mg PO DAILY [facility] Last Admin: 01/08/18 10:44 Dose: 0.4 mg - Labs Labs: 01/08/18 07:20 01/08/18 07:20 PT 14.5 SECONDS (9.4-12.5) H 01/05/18 07:00 INR 1.26 01/05/18 07:00 APTT 32.8 Seconds (25.1-36.5) 01/05/18 07:00 Assessment and Plan - Assessment and Plan (Free Text) Assessment: Pt seen and examined. I have reviewed the note of the medical coding technician and agree with it. I have discussed the assessment and plan with the resident. I have reviewed the patient's labs and medications. Pt with CKD-3. Cr is stable Follow labs. He is on Calcitrol for secondary hyperparathyroidism.
--- NOTE | 2018-01-08 10:01 | PN ---
DATE: 01/08/2018 SUBJECTIVE: The patient is seen earlier today, in no acute distress, nontoxic. PHYSICAL EXAMINATION: VITAL SIGNS: On exam, temperature is 99, blood pressure is 150/80, respiratory rate of 20. HEENT: Examination of HEENT is unremarkable. NECK: Supple. LUNGS: Have decreased breath sounds. HEART: Normal S1, S2. ABDOMEN: Soft, nontender. LABORATORY DATA: Laboratory examination reveals a white count of 5, hemoglobin of 7, platelets of 178. Chemistries reveals a BUN of 37, creatinine of 1.9. Urinalysis is noted. Toxicology is noted. Serology is reviewed. Microbiology is reviewed. ASSESSMENT AND PLAN: An 87-year-old male with a history of coronary artery disease, coronary artery bypass graft, pacemaker, chronic obstructive lung disease, cardiomyopathy, hypertension with sepsis with idiopathic thrombocytopenic purpura, methicillin-resistant Staphylococcus aureus bacteremia, [id number] myocardial infarction. Today is day #6 of of daptomycin. Ideally should have a transesophageal echocardiogram to rule out pacemaker infection and/or endocarditis. Should have CBC, SMA-18, sed rate, C-reactive protein and CPK once weekly. We will follow with you. Currently on daptomycin. Thor Fairbanks MD
[2018-01-08] MEDS ORDERED: diltiaZEM 180 mg/24 Hours CD Cap PO STA (11:30)
--- NOTE | 2018-01-08 14:13 | PN ---
DATE: 01/08/2018 REASON FOR CONSULTATION AND FOLLOWUP: Epa-DX-[id number] myocardial infarction, anemia, bleed, altered mental status, passed swallowing evaluation. SUBJECTIVE: Patient lying in the bed. Denies any chest pain, shortness of breath, or any palpitations. PHYSICAL EXAMINATION: GENERAL: Not in apparent distress. VITAL SIGNS: Temperature afebrile, heart rate 90, blood pressure 150/82. HEENT: PERRLA. Extraocular muscles intact. NECK: Supple. No carotid bruits or thyromegaly. CHEST: Clear to auscultation. HEART: S1, S2 regular. ABDOMEN: Soft. EXTREMITIES: Clubbing and cyanosis negative. LABORATORY DATA: Blood workup as follows: WBC 5, hemoglobin 7.8, hematocrit 25.7, platelet count 178. Chemistry shows sodium 140, potassium 4.8, chloride 120, carbon dioxide 26, anion gap of 6, BUN 36, creatinine 1.9. ASSESSMENT AND PLAN: An 87-year-old male with past medical history significant for coronary artery disease, history of coronary artery bypass graft, history of AICD placed status post gastrointestinal bleed status post 5 units of packed RBC transfusion, on restraint. Yesterday Dr. Vail called and wanted to put the patient on anticoagulation. Mentioned that the patient is pulling the Mann catheter and without any anticoagulation. The patient has a torrential bleed requiring 5 units of blood. So he said he will discontinue the Mann and see if the patient is able to make urine and if remained stable, we will start low dose of Coumadin. His concern is the patient maybe throwing some embolus and that is causing altered mental status, not sure about that possibly. Second concern about doing the ANDRE because of admission. The patient had positive blood culture methicillin resistant staph aureus, but overall given the patient's condition, altered mental status, pulling the Mann catheter and was in 2-point restraint, it is not a good idea to do a ANDRE, where the patient's pulling can cause perforation of the esophagus. So it is better to treat the patient as endocarditis without proven endocarditis because of high risk for procedure and procedure related complications. Discussed with Dr. Fairbanks before, so continue treatment of antibiotics as empirically treat for endocarditis. Risks and benefit ratio is not in favor to proceed for ANDRE because it can cause complications and perforation of esophagus will be more detrimental and dangerous to the patient. Also, the patient was put on Cardizem because of atrial fibrillation converted to normal sinus and was unable to solve. Now, the patient started eating. So, we will put back on Cardizem 30 mg every 8 hours and if tolerated, we will change to Cardizem CD from tomorrow. We will follow with you. Since the blood pressure is 190, we will start actually Cardizem CD now, start first dose now. I will put Cardizem CD from tomorrow and first dose start now. We will discontinue telemetry and discontinue IV Cardizem and if the patient can tolerate as per Dr. Vail, we will monitor if the patient can tolerate the anticoagulation. Yesterday, the patient started low dose of IV fluid because of increasing BUN and creatinine and patient was n.p.o. Now since the patient started, we will discontinue IV fluid. After an hour, we will discontinue Cardizem. If p.o. is adequate, we will discontinue IV fluid by 5 p.m. Also, we will change to p.o. Lasix from tomorrow and we will put hydralazine p.r.n. for systolic more than 170. Thank you, Dr. Rivas, for providing us the opportunity in taking care of the patient, Faraz Zuñiga. aRdha Woodward MD
--- NOTE | 2018-01-08 21:56 | PN ---
DATE: 01/08/2018 REFERRING PHYSICIAN: Irasema Rivas MD SUBJECTIVE: The patient is sitting side of the bed. Night was unremarkable. Mann catheter has been removed but requiring straight cath. Last straight cath able to get more than 600 mL urine, on p.o. intake. Mild cough. No nausea, no vomiting. No leg pain or leg swelling. OBJECTIVE: GENERAL: No acute distress. VITAL SIGNS: Temperature is 98, heart rate is 87, respiratory rate is 20, blood pressure 175/80, pulse ox is 92% on BiPAP this morning. HEENT: Moist mucous membranes. Crowded airway. NECK: Supple. No JVD. LUNGS: Has a few crackles. HEART: S1 and S2. ABDOMEN: Soft, nontender. No organomegaly. EXTREMITIES: No edema. NEUROLOGIC: Awake and follows simple commands. MEDICATIONS: He is on hydralazine 10 mg four times a day p.r.n., Brovana inhaled twice a day, Cardizem 180 mg daily, he is on daptomycin 480 mg daily, DuoNeb every 4 hours p.r.n. and DuoNeb every 6 hours [id number], Ecotrin 81 mg daily Flomax 0.4 mg daily, Imdur ER 30 mg daily, Lasix 40 mg daily, Namenda 10 mg daily, Nitro-Bid 2% ointment every 8 hours, Protonix 20 mg daily, Pulmicort inhaled twice a day, calcitriol 0.5 mcg p.o. daily, Singulair 10 mg daily, Synthroid 25 mcg daily, Tylenol p.r.n. basis. LABORATORY DATA: Shows hemoglobin 7.8, hematocrit 25.8, WBC 5.0, platelet count is 178. Sodium 48, potassium 4.2, chloride 120, bicarbonate 26, BUN 37, creatinine 1.9, glucose is 83, calcium is 10.0, phosphorus is 3.1, magnesium 2.2, AST 39, ALT 33, alk phos is 105. Albumin is 2.9. Procalcitonin is 0.33. Repeat blood culture, there is no growth. IMPRESSION AND PLAN: Staphylococcus bacteremia status post hematuria requiring transfusion, chronic lung disease, cardiomyopathy, cardiac diastolic and systolic dysfunction, pulmonary hypertension, coronary artery disease, hyperlipidemia, history of gastro-angiopathy, oropharyngeal dysphagia, modified diet, sleep apnea syndrome, bladder outlet obstruction. Spoke to nursing staff. We will change bladder scan every eight. We will add Flomax. Discontinue Atrovent. Antibiotics as per Infectious Diseases. Encourage BiPAP use, anticoagulation, and diuretics as per Cardiology. Follow up labs the morning. Thank you, and we will follow with you. Radha Vail MD
--- NOTE | 2018-01-09 02:11 | PN ---
DATE: 01/08/2018 SUBJECTIVE: Patient was seen and examined at the bedside on 01/08/2018, looking comfortable. No nausea, vomiting, diarrhea. No hematuria or hematochezia. No swelling of the legs. No chest pain. No palpitation. Having dinner. Not in acute distress. Overnight, no events happened. No fever, no chills. PHYSICAL EXAMINATION: VITAL SIGNS: Temperature 98, respiratory rate 20, pulse 90, blood pressure 150/82, pulse oximetry 92%. HEENT: Head: Normocephalic, atraumatic. Eyes: PERRLA. Extraocular muscles intact. Conjunctivae clear. Nose patent. Mucous membrane moist. NECK: Supple. No carotid bruit. No JVD or thyromegaly. CHEST: Bilaterally symmetrical. HEART: S1 and S2 positive. LUNGS: Clear to auscultation. ABDOMEN: Soft. Bowel sounds positive. No organomegaly. EXTREMITIES: No edema. No cyanosis. NEUROLOGIC: The patient is awake, alert. Moving all four extremities. No focal deficits. MEDICATIONS: Tylenol, DuoNeb, Brovana, Ecotrin, Pulmicort, Lasix, daptomycin, Imdur, levothyroxine, Namenda, Singulair, Protonix, Flomax. LABORATORY DATA: White blood cells 5, hemoglobin 7.8, hematocrit 25, platelets 178. Sodium 140, potassium 4.2, BUN 37, creatinine 1.9, glucose 83. ASSESSMENT AND PLAN: Mr. Faraz Zuñiga is an 87-year-old male with anemia, renal insufficiency, hyperchloremia, history of chronic kidney disease stage III, chronic obstructive pulmonary disease, congestive heart failure, coronary artery disease, status post coronary artery bypass graft, has urinary retention, found to have methicillin-resistant Staphylococcus aureus in the urine and blood, acute kidney injury on chronic kidney disease, hypernatremia noted, secondary hyperparathyroidism noted due to chronic kidney disease, chronic anemia is also noted. Lab reviewed. Gastrointestinal and deep venous thrombosis prophylaxes. Discussion done with the patient and the patient's nurse. The patient is on aspiration precautions. ID is on the case. The patient has pacemaker, chronic obstructive lung disease, cardiomyopathy, idiopathic thrombocytopenic purpura, [id number] myocardial infarction. Today is day #6 of daptomycin. Ideally, should have a transesophageal echocardiography to rule out pacemaker infected and/or endocarditis. Repeat labs. We will follow up. Irasema Rivas MD [id number]
[2018-01-09] MEDS: Nitroglycerin 2% Ointment Foilpak UD TOP SCH (05:06)
[2018-01-09] MEDS: Arformoterol 15 mcg/2 ml Inh Sol IH SCH (07:58)
[2018-01-09] MEDS: Budesonide 0.5 mg/2 ml Inhal Susp UD IH SCH (07:58)
--- NOTE | 2018-01-09 09:30 | PN ---
DATE: 01/09/2018 SUBJECTIVE: The patient is in bed, in no acute distress. VITAL SIGNS: Temperature of 98, blood pressure is 140/70, respiratory rate of 16. HEENT: Examination of HEENT is unremarkable. NECK: Supple. LUNGS: Have decreased breath sounds. HEART: Normal S1, S2. ABDOMEN: Soft, nontender. LABORATORY DATA: Laboratory examination reveals creatinine is 1.9. Troponin is noted. Urinalysis is noted. Review of orders reveals the patient to be on daptomycin. Review of microbiology reveals the cultures remained to be negative from 01/03/2018. ASSESSMENT AND PLAN: An 87-year-old male with history of coronary artery disease, coronary artery bypass graft, pacemaker, chronic obstructive lung disease, cardiomyopathy, hypertension, admitted with sepsis with methicillin-resistant Staphylococcus aureus bacteremia, [id number] myocardial infarction. Today is day #7 of 28 days at least of daptomycin. Recommended CBC, SMA-18, sed rate, C-reactive protein and CPK once weekly. Also recommended transesophageal echocardiogram for ruling out endocarditis because of the presence of pacemaker. We will follow with you since the patient had persistent bacteremia. Thor Fairbanks MD
[2018-01-09 09:32] LABS: BASO # 0.05 K/mm3 (0.0-2.0); BASO % 0.9 % (0.0-3.0); EOS % 0.6 % (1.5-5.0); GRAN # 4.24 (1.4-6.5); GRAN % 77.8 % (50.0-68.0); LYMPH # 0.9 (1.2-3.4); LYMPH % 16.1 % (22.0-35.0); MEAN CELL VOLUME 91.2 fl (80.0-105.0); MEAN CORPUSCULAR HEMOGLOBIN 27.4 pg (25.0-35.0); MEAN PLATELET VOLUME 10.2 fl (7.0-11.0); MONO # 0.3 (0.1-0.6); MONO % 4.6 % (1.0-6.0); RBC 3.29 10^6/uL (3.5-6.1); RED CELL DISTRIBUTION WIDTH 18.6 % (11.5-14.5); WHITE BLOOD COUNT 5.5 10^3/ul (4.5-11.0)
--- NOTE | 2018-01-09 09:57 | CARD ---
APPROVED REPORT Date of service: 01/09/2018 EKG Measurement Heart [id number] OR 192P9 [id number] <Conclusion> Sinus rhythm with 1 APC and 1 ventricular couplet Left axis deviation/LAHB RBBB Left ventricular hypertrophy with QRS widening and repolarization abnormality C/W ECG 01/06/18: the HR has increased and the ectopy is new.
[2018-01-09 09:58] LABS: ALB/GLOB RATIO 0.9 (1.1-1.8); ALBUMIN 3.3 g/dL (3.0-4.8); CALCIUM 10.2 mg/dL (8.4-10.5)
[2018-01-09] MEDS ORDERED: diltiaZEM 180 mg/24 Hours CD Cap PO SCH (10:00)
[2018-01-09 10:43] VITALS: O2SAT 95
--- NOTE | 2018-01-09 11:07 | CP.PCM.PN ---
<Jean Pierre Kaiser - Last Filed: 01/09/18 17:30> Subjective - Date & Time of Evaluation Date of Evaluation: 01/09/18 Time of Evaluation: 10:15 - Subjective Subjective: PGY-4 GI Fellow Prog Note Pt lying in bed when seen this AM. Not conversive, but shakes his head "no" when asked about complaints. Nursing states no signs of bloody BMs overnight. Unable to obtain full ROS due to clinical condition Objective - Vital Signs/Intake and Output Vital Signs (last 24 hours): Temp Pulse Resp BP Pulse Ox 97.5 F L 87 20 176/83 H 95 01/09/18 05:38 01/09/18 10:19 01/09/18 05:38 01/09/18 10:19 01/09/18 05:38 Intake and Output: 01/09/18 01/09/18 06:59 18:59 Intake Total 30 Output Total 2400 Balance -2370 - Medications Medications: Current Medications Acetaminophen (Tylenol 325mg Tab) 650 mg PO Q6H PRN PRN Reason: Fever >100.4 F Last Admin: 12/31/17 01:25 Dose: 650 mg Albuterol/Ipratropium (Duoneb 3 Mg/0.5 Mg (3 Ml) Ud) 3 ml IH [id number] PRN PRN Reason: Shortness of Breath Last Admin: 12/26/17 19:55 Dose: 3 ml Arformoterol Tartrate (Brovana) 15 mcg IH [id number] [facility] Last Admin: 01/09/18 07:58 Dose: 15 mcg Aspirin (Ecotrin) 81 mg PO DAILY [facility] Last Admin: 01/09/18 10:19 Dose: 81 mg Budesonide (Pulmicort Respules) 0.5 mg IH [id number] [facility] Last Admin: 01/09/18 07:58 Dose: 0.5 mg Diltiazem HCl (Cardizem Cd) 180 mg PO DAILY [facility] Last Admin: 01/09/18 10:18 Dose: 180 mg Furosemide (Lasix) 40 mg PO DAILY [facility] Last Admin: 01/09/18 10:19 Dose: 40 mg Hydralazine HCl (Apresoline) 10 mg PO QID PRN PRN Reason: for sbp >170 Last Admin: 01/09/18 10:19 Dose: 10 mg Daptomycin 480 mg/ Sodium (Chloride) 100 mls @ 200 mls/hr IV Q24H [facility] Stop: 02/04/18 12:16 Last Admin: 01/08/18 11:48 Dose: 200 mls/hr Isosorbide Mononitrate (Imdur Er) 30 mg PO DAILY [facility] Last Admin: 01/06/18 15:04 Dose: Not Given Levothyroxine Sodium (Synthroid) 25 mcg PO 0600 [facility] Last Admin: 01/08/18 05:52 Dose: Not Given Memantine (Namenda) 10 mg PO DAILY [facility] Last Admin: 01/09/18 10:18 Dose: 10 mg Montelukast Sodium (Singulair) 10 mg PO HS [facility] Last Admin: 01/08/18 21:47 Dose: Not Given Pantoprazole Sodium (Protonix Ec Tab) 20 mg PO 0600 [facility] Last Admin: 01/08/18 05:52 Dose: Not Given Tamsulosin HCl (Flomax) 0.8 mg PO DAILY [facility] Last Admin: 01/09/18 10:18 Dose: 0.8 mg - Labs Labs: 01/09/18 09:20 01/09/18 09:20 PT 14.5 SECONDS (9.4-12.5) H 01/05/18 07:00 INR 1.26 01/05/18 07:00 APTT 32.8 Seconds (25.1-36.5) 01/05/18 07:00 - Constitutional Appears: No Acute Distress, Confused, Chronically Ill - Head Exam Head Exam: ATRAUMATIC, NORMAL INSPECTION - Eye Exam Eye Exam: Conjunctival injection. absent: Scleral icterus - ENT Exam ENT Exam: Mucous Membranes Dry, Normal External Ear Exam. absent: Mucous Membranes Moist - Respiratory Exam Respiratory Exam: NORMAL BREATHING PATTERN. absent: Accessory Muscle Use, Respiratory Distress - GI/Abdominal Exam GI & Abdominal Exam: Distended (mildly), Soft, Normal Bowel Sounds. absent: Bruit, Firm, Guarding, Rigid, Tenderness, Hernia, Mass, Organomegaly, Pulsatile Mass, Rebound Assessment and Plan - Assessment and Plan (Free Text) Assessment: 87 year old male with past medical history of COPD, CHF s/p AICD, HTN, CAD s/p CABG, CKD stage IV, dementia, iron deficiency anemia, hx of gastritis, HLD with severe anemia. Patient s/p colonoscopy and EGD showing multiple non bleeding AVM. Patient with no reports of blood per rectum or hemoptysis Anemia likely secondary to urethra trauma Acute blood loss anemia due to GI bleed: AVMs seen on both EGD(12/25/17)+CSPY s/p epi and gold probe to prevent re-bleeding Possible acute CVA 01/04/18 Dysphagia NSTEMI-cardiology following AFib w. RVR Sepsis secondary to MSSA bacteremia with unclear source Demenita HTN HLD CHF s/p AICD (EF of 55%) Hypernatremia Malnourished Plan: - Monitor H/H with serial CBC, transfuse if symptomatic or hgb<7. - Antibiotics as per ID - Continue PPI - Given possibility of stroke and afib, patient may need to be anticoagulated. Okay from GI standpoint to start OAC however timing should be based on neuro and urology recs. - PPN order placed we will continue as patient is not compliant with eating. - Okay to start diet per INTEGRATED CIRCUIT DESIGN ENGINEER recs; puree for now. High risk to need PEG in future if within goals of care. Pt seen and examined with Dr. Murdock; see attestation for further recs/changes <Ramon Murdock V - Last Filed: 01/09/18 21:04> Objective - Vital Signs/Intake and Output Vital Signs (last 24 hours): Temp Pulse Resp BP Pulse Ox 98.8 F 103 H 20 170/69 H 95 01/09/18 17:52 01/09/18 17:52 01/09/18 17:52 01/09/18 17:52 01/09/18 05:38 Intake and Output: 01/09/18 01/10/18 18:59 06:59 Intake Total 600 Output Total 1900 Balance -1300 - Medications Medications: Current Medications Acetaminophen (Tylenol 325mg Tab) 650 mg PO Q6H PRN PRN Reason: Fever >100.4 F Last Admin: 12/31/17 01:25 Dose: 650 mg Albuterol/Ipratropium (Duoneb 3 Mg/0.5 Mg (3 Ml) Ud) 3 ml IH [id number] PRN PRN Reason: Shortness of Breath Last Admin: 12/26/17 19:55 Dose: 3 ml Arformoterol Tartrate (Brovana) 15 mcg IH [id number] [facility] Last Admin: 01/09/18 07:58 Dose: 15 mcg Aspirin (Ecotrin) 81 mg PO DAILY [facility] Last Admin: 01/09/18 10:19 Dose: 81 mg Budesonide (Pulmicort Respules) 0.5 mg IH [id number] [facility] Last Admin: 01/09/18 07:58 Dose: 0.5 mg Diltiazem HCl (Cardizem Cd) 180 mg PO DAILY [facility] Last Admin: 01/09/18 10:18 Dose: 180 mg Furosemide (Lasix) 40 mg PO DAILY [facility] Last Admin: 01/09/18 10:19 Dose: 40 mg Hydralazine HCl (Apresoline) 10 mg PO QID PRN PRN Reason: for sbp >170 Last Admin: 01/09/18 10:19 Dose: 10 mg Daptomycin 480 mg/ Sodium (Chloride) 100 mls @ 200 mls/hr IV Q24H [facility] Stop: 02/04/18 12:16 Last Admin: 01/09/18 12:45 Dose: 200 mls/hr Isosorbide Mononitrate (Imdur Er) 30 mg PO DAILY [facility] Last Admin: 01/06/18 15:04 Dose: Not Given Levothyroxine Sodium (Synthroid) 25 mcg PO 0600 [facility] Last Admin: 01/08/18 05:52 Dose: Not Given Memantine (Namenda) 10 mg PO DAILY [facility] Last Admin: 01/09/18 10:18 Dose: 10 mg Montelukast Sodium (Singulair) 10 mg PO HS [facility] Last Admin: 01/08/18 21:47 Dose: Not Given Pantoprazole Sodium (Protonix Ec Tab) 20 mg PO 0600 [facility] Last Admin: 01/08/18 05:52 Dose: Not Given Tamsulosin HCl (Flomax) 0.8 mg PO DAILY [facility] Last Admin: 01/09/18 10:18 Dose: 0.8 mg - Labs Labs: 01/09/18 09:20 01/09/18 09:20 PT 14.5 SECONDS (9.4-12.5) H 01/05/18 07:00 INR 1.26 01/05/18 07:00 APTT 32.8 Seconds (25.1-36.5) 01/05/18 07:00 Attending/Attestation - Attestation I have personally seen and examined this patient.: Yes I have fully participated in the care of the patient.: Yes I have reviewed all pertinent clinical information, including history, physical exam and plan: Yes Notes (Text): This is an addendum to GI followup report dictated by GI Fellow The patient was seen and evaluated earlier. Medical records, lab studies, imagings were reviewed. Last 24 hours events reviewed. Agreed with the above treatment plan as outlined in GI Fellow's notes with the addition of the following History of A. fib status post CVA before. Okay to restart anticoagulation if needed with close follow-up of hemoglobin dysphagia as per speech therapy evaluation patient is okay to take pure diet His intake remains low and variable. At times he pockets food Patient may need a feeding tube however the real risk is patient pulling out GT Patient is planned to be transferred to the care home History of duodenal gastric and colonic AVMs status post BiCAP therapy before. 01/09/18 20:58
--- NOTE | 2018-01-09 14:49 | PN ---
DATE: 01/09/2018 REASON FOR CONSULTATION AND FOLLOWUP: Non-ST segment myocardial infarction, altered mental status, anemia, bleed, gram-positive sepsis on admission, rule out endocarditis. SUBJECTIVE: The patient is lying on bed, no arrhythmia noted, but still combative last night, discussed with nursing staff. PHYSICAL EXAMINATION: GENERAL: Not in any apparent distress, lying flat on the bed. VITAL SIGNS: Temperature afebrile, heart rate 83, blood pressure 141/73. HEENT: PERRLA intact. NECK: Supple. No carotid bruits or thyromegaly. CHEST: Clear to auscultation. HEART: S1 and S2 regular. ABDOMEN: Soft. EXTREMITIES: Clubbing and cyanosis negative. LABORATORY DATA: Blood workup as follows: WBC 5, hemoglobin 7.8, hematocrit 25.4, platelet count 178. Chemistry shows sodium 140, potassium 4.2, chloride 120, carbon dioxide 26, anion gap of 6, BUN 36, creatinine 1.9. IMPRESSION: An 87-year-old male with a past medical history significant for coronary artery disease, coronary artery bypass graft, history of pacemaker automatic implantable cardioverter-defibrillator, admitted here with altered mental status, pulled the Mann catheter, significant torrential bleed requiring 5 units of packed RBC. On admission, the patient has gram-positive sepsis, methicillin-resistant Staphylococcus aureus positive on admission 12/30/2017 until the repeat blood on 12/31/2017. Repeat blood cultures x2 01/01/2018 and 01/03/2018 is negative. The patient also made troponin significant 10 during the course of hospitalization. History of some renal insufficiency with a baseline creatinine around 30 mL an hour. Altered mental status, combative, not a good candidate for any invasive procedure. Also, the patient has bleeding, also history of gastrointestinal bleeding. In view of as mentioned above, we will treat the patient empirically as endocarditis because not a candidate to go for endoscopy, very combative and can perforate the esophagus. Risks and benefits ratio is not in favor of having ANDRE as discussed in my progress note yesterday. Also because of the positive troponin, asymptomatic, inability to tolerate dual antiplatelet therapy without any the patient's bleeding and dropping H and H requiring total 5 units of blood so far. Still, the hemoglobin 7.8. So we will treat aggressively medically. Continue gentle diuretics. Keep the negative fluid balance. Repeat echo showed, read by Dr. Poon, moderate to severe pulmonary hypertension, right ventricular systolic pressure reported 67, moderate mitral regurgitation, moderate tricuspid regurgitation, moderately impaired left ventricular function reported. Repeat blood culture since it is cleared. Continue aggressive medical treatment. Continue Cardizem has changed because of the patient able to swallow. Repeat EKG. Now, continue baby aspirin. Continue nitrate 30 mg daily. Continue Lasix 40 p.o. daily. Discontinue nitrate and continue p.o. nitrate and continue Cardizem to control the heart rate and maintain sinus rhythm. We will get EKG to assess rhythm and document normal sinus. Today's blood work is pending. We will follow when it is available. Thank you, Dr. Rivas, for providing us the opportunity in taking care of the patient, Faraz Zuñiga. Radha Woodward MD
--- NOTE | 2018-01-09 14:57 | PN ---
DATE: 01/09/2018 PULMONARY PROGRESS NOTE REFERRING PHYSICIAN: Irasema Rivas MD. SUBJECTIVE: He is sleepy, arousable. Last 24-hour events noted. Has been retaining urine. Straight cathed, able to obtain almost 500 each 8 hours. Mann catheter was placed in and left now. No hemoptysis. No hematemesis. No hematuria. No leg pain. No leg swelling. OBJECTIVE: GENERAL: In no acute distress. VITAL SIGNS: Temperature is 98, heart rate is 100, respiratory rate is 18, blood pressure 157/95, pulse ox 95% on BiPAP last night. HEENT: Moist mucous membrane. Crowded airway. NECK: Supple. No JVD. LUNGS: Have a fair airflow with few rhonchi. HEART: S1 and S2. ABDOMEN: Soft and nontender. No organomegaly. EXTREMITIES: No edema. NEUROLOGICAL: Sleepy, arousable. Dos follow simple command. MEDICATIONS: He is on hydralazine 10 mg four times a day p.r.n., Brovana inhaled twice a day, Cardizem 180 mg daily, daptomycin 480 mg every 24 hours, DuoNeb every 4 hours p.r.n., Ecotrin 81 mg daily, Flomax 0.4 mg daily, Imdur 30 mg daily, Lasix 40 mg daily, Namenda 10 mg daily, Protonix 40 mg daily, Pulmicort inhaled twice a day, Singulair 10 mg daily, Synthroid 25 mcg daily, Tylenol p.r.n. basis. LABORATORY DATA: Shows hemoglobin 9, hematocrit 30, WBC 5.5, platelet count is 176. Sodium 148, potassium 4.5, chloride 120, bicarbonate is 22, BUN 30, creatinine 1.7, glucose is 91, calcium is 10.2, magnesium 2.3, AST 27, ALT 25, alk phos is 110, albumin is 3.3. Microbiology: Repeat blood culture, so far there is no growth. Had EKG done today. The patient is sinus rhythm with APCs and one ventricular complex. Left axis deviation. IMPRESSION AND PLAN: Status post staphylococcus bacteremia, on antibiotics; chronic lung disease; cardiomyopathy; cardiac diastolic dysfunction and systolic dysfunction; paroxysmal atrial fibrillation; pulmonary hypertension; coronary artery disease; hyperlipidemia; history of gastro-angiopathy; oropharyngeal dysphagia, on modified diet; may have sleep apnea syndrome; bladder outlet obstruction. Mann catheter is back in. Pulmonary point of view, doing okay. Keep head at 45 degrees. Continue bronchodilators. Antibiotics as per Infectious Diseases. Being followed by Cardiology. Out of bed to chair. Thank you and we will follow with you. Radha Vail MD
[2018-01-09 17:54] VITALS: BP 170/69; PULSE 103; RESP 20; TEMP 98.8
--- NOTE | 2018-01-10 19:22 | DS ---
The patient was seen and examined on the bedside on 01/09/2018. CHIEF COMPLAINT: Swelling of the legs, shortness of breath. HISTORY OF PRESENT ILLNESS: Mr. Faraz Zuñiga is an 87-year-old male with past medical history of COPD, congestive heart failure, dementia, came to the Emergency Department of [facility] from [facility], now complaining about abdominal pain, shortness of breath, fatigue, and tired. The patient pulled out his Mann catheter two days ago with inflated balloons while urinating red blood in the urine. We admitted the patient. Did a renal ultrasound, electrocardiography, CAT scan of the abdomen and pelvis was done and chest x-ray was done, endoscopy was done and extremity ultrasound was done. Seen by the urologist Dr. Lul Langford, Dr. Vail, pulmonology critical care, Dr. Ramon Murdock, linoleum floor installer, minister helper by Dr. Woodward, Dr. Spencer Andrade was the bakery and deli sales manager. The patient was having altered mental status. CAT scan of the head was done and seen by Dr. Quang Figueroa. The patient improved and sent back to rehab, with IV antibiotic daptomycin to complete 28 days and repeat labs there. During the hospital stay, the patient pulled his Mann catheter multiple times with inflated balloon then restraint was applied. Physical therapy given and discussion done with the patient's daughter and patient's son Shola. We will complete antibiotic course there. PAST MEDICAL HISTORY: Congestive heart failure, hypertension, COPD, mild dementia, renal failure, anemia, history of blood transfusion, fall, coronary artery disease, and CABG. FAMILY HISTORY: Father and mother, noncontributory. HABITS: Currently smoking heavily. Alcohol, no. Substance abuse, no. ALLERGIC: PATIENT IS NOT ALLERGIC WITH ANY MEDICATIONS. HOME MEDICATIONS: Reviewed by me. REVIEW OF SYSTEMS: Patient was seen and examined at the bedside on 01/09/2018. The patient is looking comfortable. No nausea, vomiting or diarrhea. No hematuria or hematochezia. No swelling of the legs. No chest pain. No palpitation. He is awake and alert. At that moment, he was oriented x3. No fever. No chills. No headache. No dizziness. Mann catheter was removed yesterday. Last 24-hour event noted. The patient was retaining urine then again a Mann catheter was attached. No hemoptysis, no hematuria, no hematochezia at this moment. PHYSICAL EXAMINATION: VITAL SIGNS: Temperature 98, heart rate 100, respiratory rate 18, blood pressure 160/95, pulse oximetry 95% on room air. HEENT: Head: Normocephalic, atraumatic. Eyes: PERRLA. Extraocular muscles intact. Conjunctivae clear. Nose patent. Mucous membrane moist. NECK: Supple. No carotid bruit. No JVD or thyromegaly. CHEST: Bilaterally symmetrical. HEART: S1 and S2 positive. LUNGS: Clear to auscultation. ABDOMEN: Soft. Bowel sounds positive. No organomegaly. EXTREMITIES: No edema. No cyanosis. NEUROLOGIC: Patient is awake, alert. Follow simple commands. MEDICATIONS: Hydralazine, Cardizem, daptomycin, DuoNeb, Ecotrin, Florinef, Imdur, Lasix, Namenda, Protonix, Pulmicort, Singulair, and Synthroid. LABORATORY DATA: Hemoglobin 9.0, hematocrit 30, white blood cell 5.5, and platelets 176. Sodium 140, potassium 4.5, BUN 30, creatinine 1.7. ASSESSMENT AND PLAN: Mr. Faraz Zuñiga is an 87-year-old male status post Staphylococcus bacteremia on antibiotics, chronic lung disease, cardiomyopathy with diastolic dysfunction and systolic dysfunction, paroxysmal atrial fibrillation, pulmonary hypertension, coronary artery disease, hypercholesterolemia, history of gastric angiopathy, oropharyngeal dysphagia on modified diet, sleep apnea syndrome, bladder outlet obstruction, history of oropharyngeal dysphagia, on modified diet. Now, we will keep Mann catheter. Continue bronchodilators and antibiotics. We have to complete at least 28 days, 7 days had done. We will follow up in the rehab. We will repeat labs once a week. Irasema Rivas MD
== END 2018-01-09 21:07 | DRG 377 ==
LOC: ED 22:25 → ERH 12-21 00:54 → 2RNO 12-21 02:12 → 5RNO 12-24 14:09 → 2RNO 01-01 11:26
PROVIDERS: ADMIT Internal Medicine; ATTEND Internal Medicine
PROC: 0T9B70Z Drainage of Bladder with Drainage Device, Via Natural or Artificial Opening (ICD-10-PCS; 2017-12-20)
PROC: 30233N1 Transfusion of Nonautologous Red Blood Cells into Peripheral Vein, Percutaneous Approach (ICD-10-PCS; 2017-12-21)
PROC: 5A09357 Assistance with Respiratory Ventilation, Less than 24 Consecutive Hours, Continuous Positive Airway Pressure (ICD-10-PCS; 2017-12-23)
PROC: 3E0G8GC Introduction of Other Therapeutic Substance into Upper GI, Via Natural or Artificial Opening Endoscopic (ICD-10-PCS; principal; 2017-12-25 10:15)
PROC: 0DB68ZX Excision of Stomach, Via Natural or Artificial Opening Endoscopic, Diagnostic (ICD-10-PCS; 2017-12-25 10:15)
PROC: 0D598ZZ Destruction of Duodenum, Via Natural or Artificial Opening Endoscopic (ICD-10-PCS; 2017-12-25 10:15)
PROC: 0D5K8ZZ Destruction of Ascending Colon, Via Natural or Artificial Opening Endoscopic (ICD-10-PCS; 2017-12-28)
PROC: 0D5H8ZZ Destruction of Cecum, Via Natural or Artificial Opening Endoscopic (ICD-10-PCS; 2017-12-28)
DX: K31.811 Angiodysplasia of stomach and duodenum with bleeding (principal); J18.9 Pneumonia, unspecified organism; I21.4 Non-ST elevation (NSTEMI) myocardial infarction; A41.02 Sepsis due to Methicillin resistant Staphylococcus aureus; D62 Acute posthemorrhagic anemia; N17.9 Acute kidney failure, unspecified; I13.0 Hypertensive heart and chronic kidney disease with heart failure and stage 1 through stage 4 chronic kidney disease, or unspecified chronic kidney disease; I50.32 Chronic diastolic (congestive) heart failure; N18.4 Chronic kidney disease, stage 4 (severe); E87.1 Hypo-osmolality and hyponatremia; N39.0 Urinary tract infection, site not specified; N25.81 Secondary hyperparathyroidism of renal origin; I47.2 Ventricular tachycardia; S37.30XA Unspecified injury of urethra, initial encounter; E87.0 Hyperosmolality and hypernatremia; J44.9 Chronic obstructive pulmonary disease, unspecified; F03.90 Unspecified dementia, unspecified severity, without behavioral disturbance, psychotic disturbance, mood disturbance, and anxiety; I25.10 Atherosclerotic heart disease of native coronary artery without angina pectoris; I25.5 Ischemic cardiomyopathy; R31.0 Gross hematuria; E86.0 Dehydration; E87.5 Hyperkalemia; E83.41 Hypermagnesemia; N13.9 Obstructive and reflux uropathy, unspecified; I27.20 Pulmonary hypertension, unspecified; E86.1 Hypovolemia; K29.70 Gastritis, unspecified, without bleeding; K55.20 Angiodysplasia of colon without hemorrhage; K31.7 Polyp of stomach and duodenum; R13.12 Dysphagia, oropharyngeal phase; K64.8 Other hemorrhoids; E78.00 Pure hypercholesterolemia, unspecified; I48.0 Paroxysmal atrial fibrillation; I08.1 Rheumatic disorders of both mitral and tricuspid valves; F17.200 Nicotine dependence, unspecified, uncomplicated; Y95 Nosocomial condition; X58.XXXA Exposure to other specified factors, initial encounter; Z78.1 Physical restraint status; Z95.5 Presence of coronary angioplasty implant and graft; Z95.810 Presence of automatic (implantable) cardiac defibrillator; Z95.1 Presence of aortocoronary bypass graft

== ENCOUNTER 2018-01-19 01:56 | Inpatient (IN) | payer MEDICARE, OTHER ==
[2018-01-19 02:04] VITALS: BMI 25.8
--- NOTE | 2018-01-19 02:07 | ED PDOC ---
Arrival/HPI - General Time Seen by Provider: 01/19/18 01:59 Historian: Patient - History of Present Illness Narrative History of Present Illness (Text): 01/19/18 02:03 87 year old male, whose past medical history includes COPD, CHF, and dementia, who presents to the Emergency department from long term with a fever. Patient has no physical complaints at this time. Patient denies any chills, chest pain, shortness of breath, abdominal pain, nausea, vomiting, diarrhea, back pain, neck pain, headache, dizziness, or any other complaint. Time/Duration: Prior to Arrival Symptom Onset: Gradual Symptom Course: Unchanged Activities at Onset: Light Context: Home Past Medical History - Provider Review Nursing Documentation Reviewed: Yes - Cardiac Hx Congestive Heart Failure: Yes - Pulmonary Hx Chronic Obstructive Pulmonary Disease (COPD): Yes - Neurological Hx Neurological Disorder: Yes Hx Dementia: Yes Other/Comment: As per daughter, pt has mild dementia. - HEENT Hx HEENT Disorder: No - Renal Hx Renal Failure: Yes - Endocrine/Metabolic Hx Endocrine Disorders: No - Hematological/Oncological Hx Blood Transfusions: Yes Hx Blood Transfusion Reaction: No - Integumentary Hx Dermatological Disorder: No - Musculoskeletal/Rheumatological Hx Musculoskeletal Disorders: Yes Hx Falls: Yes - Gastrointestinal Hx Gastrointestinal Disorders: Yes Other/Comment: Gastritis - Genitourinary/Gynecological Hx Genitourinary Disorders: No - Psychiatric Hx Psychophysiologic Disorder: No Hx Substance Use: No - Surgical History Hx Coronary Stent: Yes Other/Comment: CABG, coronary stent - Anesthesia Hx Anesthesia Reactions: No Hx Malignant Hyperthermia: No - Suicidal Assessment Feels Threatened In Home Enviroment: No Family/Social History - Physician Review Nursing Documentation Reviewed: Yes Family/Social History: Unknown Family HX Smoking Status: Current Some Days Smoker Hx Alcohol Use: No Hx Substance Use: No Allergies/Home Meds Allergies/Adverse Reactions: Allergies No Known Allergies Allergy (Verified 04/11/17 19:07) Home Medications: Home Meds Medication Instructions Recorded Confirmed Acetaminophen [Tylenol 325mg tab] 325 mg PO Q4 PRN MDD 3G 01/19/18 01/19/18 Acetaminophen [Tylenol 325mg tab] 325 mg PO Q4 PRN MDD 3G 01/19/18 01/19/18 Albuterol/Ipratropium [Duoneb 3 1 ea IH Q4 PRN 01/19/18 01/19/18 MG/3 Ml-0.5 MG/3 Ml 3 Ml] Aspirin [Adult Low Dose Aspirin EC] 81 mg PO DAILY 01/19/18 01/19/18 Budesonide [Pulmicort Respules] 0.25 mg IH Q12 01/19/18 01/19/18 Furosemide [Lasix] 40 mg PO DAILY 01/19/18 01/19/18 Isosorbide Mononitrate ER [Imdur 30 mg PO DAILY 01/19/18 01/19/18 ER] Levothyroxine [Synthroid] 25 mcg PO DAILY 01/19/18 01/19/18 Memantine [Namenda] 10 mg PO DAILY 01/19/18 01/19/18 Montelukast Sodium [Singulair] 10 mg PO DAILY 01/19/18 01/19/18 Pantoprazole [Protonix EC Tab] 20 mg PO DAILY 01/19/18 01/19/18 Tamsulosin [Flomax] 0.8 mg PO DAILY 01/19/18 01/19/18 [id number] CD [Cardizem CD] 180 mg PO DAILY 01/19/18 01/19/18 hydrALAZINE [hydralazine 10 mg PO DAILY PRN 01/19/18 01/19/18 Hydrochloride] Review of Systems - Physician Review All systems were reviewed & negative as marked: Yes - Review of Systems Constitutional: Fevers Eyes: Normal ENT: Normal Respiratory: Normal. absent: SOB, Cough Cardiovascular: Normal. absent: Chest Pain Gastrointestinal: Normal. absent: Abdominal Pain Genitourinary Male: Normal. absent: Dysuria, Frequency Musculoskeletal: Normal. absent: Back Pain, Neck Pain Skin: Normal. absent: Rash Neurological: Normal. absent: Headache, Dizziness Endocrine: Normal Hemo/Lymphatic: Normal Psychiatric: Normal Physical Exam - Physical Exam Narrative Physical Exam (Text): 01/19/18 02:08 Gen: VS reviewed, alert, well developed, well nourished, nontoxic, mild distress,somewhat lethargic ENT: dry mucous membranes Eye: EOMI, PERRL. Neck: no JVD, supple, no adenopathy. CV: tachycardia, displaced PMI. regular rate, regular rhythm, no rubs, no murmur, no gallops, S1, S2, pulses equal and strong. Pulm: no distress, clear to auscultation, no wheeze, no rhonchi, breath sounds equal, no rales. Abd: Small amounts of blood in urine collection, soft, nontender Ext: trace edema bilateral extremities. Skin: good color, no rash, no cyanosis. Psych: unabvle to fully assess second to lethargy Neuro: awake and alert, moves all extremities 01/19/18 05:06 Medical Decision Making ED Course and Treatment: 01/19/18 02:10 Impression: 87 year old male presents to the emergency department from long term with a fever. Plan: -- VBG -- CT Abd/Pelvis -- Labs -- EKG -- CXR -- Blood Culture -- Urine Culture -- UA -- Reassess and disposition Progress Notes: 01/19/18 03:[address] soto. ICU consult accepted by dr. wayne. patient to be admitted for sepsis, likely from urine source, patient's blood pressure responded to ivf, patient was empirically given iv abx for suspected uti sepsis. 0542: surgical assist is already aware of the CT findings - Critical Care Critical Care Minutes: 30 minutes (critical care for critical illness, complex medical decision making and coordination of crae between inpt team) - RAD Interpretation Narrative RAD Interpretations (Text): 01/19/18 02:26 cxr my read: cardiomegaly, no focal infiltrate, no ptx 01/19/18 05:39 CT abd/pelvis reviewed, shows: IMPRESSION: Constipation. Congestive heart failure. Bilateral pleural effusions. Airspace disease of the lower lobes. Subsegmental atelectasis and/or superimposed developing pneumonia. Cholelithiasis. One of the stones is impacted in the neck of the distended gallbladder with minimal diffuse thickening of the gallbladder. This can be further evaluated by means of an ultrasound exam to exclude developing acute inflammatory pathology. Guest Service Aide: ED Physician - EKG Interpretation EKG Interpretation (Text): 01/19/18 02:26 0211: atrial fibrillation at 118 bpm, rbbb, lvh, no ectopy, similiar findings when compared to ekg on 01.09.2018 Interpreted by ED Physician: Yes - Scribe Statement The provider has reviewed the documentation as recorded by the Scribjeffy Forrest All medical record entries made by the Scribe were at my direction and personally dictated by me. I have reviewed the chart and agree that the record accurately reflects my personal performance of the history, physical exam, medical decision making, and the department course for this patient. I have also personally directed, reviewed, and agree with the discharge instructions and disposition. Disposition/Present on Arrival - Present on Arrival Any Indicators Present on Arrival: No History of DVT/PE: No History of Uncontrolled Diabetes: No Urinary Catheter: No History Surgical Site Infection Following: None - Disposition Have Diagnosis and Disposition been Completed?: Yes Diagnosis: Sepsis, CHF (congestive heart failure), UTI (urinary tract infection) Disposition: HOSPITALIZED Disposition Time: 03:28 Patient Plan: Admission, ICU Patient Problems: Current Active Problems Problem Status Onset CHF (congestive heart failure) Acute Sepsis Acute UTI (urinary tract infection) Acute Condition: FAIR
[2018-01-19] MEDS ORDERED: Sodium Chloride 0.9% 1,000 ML IV STA ×2 (02:17)
[2018-01-19] MEDS ORDERED: Cefepime IV 2 gm in NS 2 GM/100 ML BAG IVPB STA (02:18)
[2018-01-19] MEDS ORDERED: Sodium Chloride 0.9% 500 ML IV STA (02:19)
[2018-01-19] MEDS ORDERED: Vancomycin 500 mg Inj IVPB STA (02:23)
[2018-01-19 02:46] LABS: BASO # 0.01 K/mm3 (0.0-2.0); BASO % 0.1 % (0.0-3.0); GRAN % 98.4 % (50.0-68.0); HEMOGLOBIN 8.1 g/dL (14.0-18.0); LYMPH # 0.1 (1.2-3.4); MEAN CELL VOLUME 87.9 fl (80.0-105.0); MEAN CORPUSCULAR HEMOGLOBIN 27.3 pg (25.0-35.0); MEAN PLATELET VOLUME 11.9 fl (7.0-11.0); MONO # 0.1 (0.1-0.6); MONO % 0.5 % (1.0-6.0); PLATELET COUNT 127 10^3/uL (120.0-450.0); RBC 2.97 10^6/uL (3.5-6.1)
[2018-01-19 02:48] LABS: VENOUS BLOOD GAS BASE EXCESS -0.4 mmol/L (0.0-2.0); VENOUS BLOOD GAS PO2 50 mm/Hg (30-55); VENOUS BLOOD PH 7.36 (7.32-7.43)
[2018-01-19 02:49] LABS: PH,URINE 6.5 (4.7-8.0); URINE BILIRUBIN MODERATE (NEGATIVE); URINE BLOOD LARGE (NEGATIVE); URINE GLUCOSE (UA) NEGATIVE (NEGATIVE); URINE LEUKOCYTE ESTERASE SMALL Leu/uL (NEGATIVE); URINE PROTEIN 100 mg/dL (<30 mg/dL)
[2018-01-19 02:57] LABS: INR 1.33; PARTIAL THROMBOPLASTIN TIME 25.9 Seconds (25.1-36.5); PROTHROMBIN TIME 15.2 SECONDS (9.4-12.5); URINE COLOR LIGHT BROWN (YELLOW)
[2018-01-19 02:58] LABS: URINE APPEARANCE TURBID (CLEAR)
[2018-01-19 03:08] LABS: URINE BACTERIA MANY (NEG); URINE RBC TNTC /hpf (0-2); URINE WBC 15 - 20 /hpf (0-6)
[2018-01-19 03:15] LABS: ALB/GLOB RATIO 0.9 (1.1-1.8); CALCIUM 9.6 mg/dL (8.4-10.5)
[2018-01-19 04:45] LABS: BAND 8 % (0-2); LYMPHOCYTE 0 % (22.0-35.0); MONOCYTE 0 % (1.0-6.0); NEUTROPHIL 92 % (50.0-70.0); PLATELET ESTIMATE NORMAL (NORMAL)
[2018-01-19 04:46] LABS: LARGE PLATELETS PRESENT
[2018-01-19 04:47] LABS: ANISOCYTOSIS SLIGHT; HYPOCHROMIA 1+
[2018-01-19] MEDS ORDERED: Magnesium Sulfate 2 GM in Sodium Chloride 0.9% 100 ML IVPB ONE (04:55)
[2018-01-19] MEDS ORDERED: Potassium Phosphate 3 mmol/ml Inj IV ONE (04:59)
[2018-01-19] MEDS: Sodium Chloride 0.9% 1,000 ML IV SCH ×2 (05:04→17:47)
[2018-01-19] MEDS ORDERED: Potassium Phosphate 15 MMOLE in Sodium Chloride 0.9% 250 ML IVPB ONE (05:15)
[2018-01-19 05:45] LABS: BASO # 0.01 K/mm3 (0.0-2.0); BASO % 0.1 % (0.0-3.0); GRAN # 15.92 (1.4-6.5); GRAN % 90.6 % (50.0-68.0); HEMOGLOBIN 7.3 g/dL (14.0-18.0); LYMPH # 0.5 (1.2-3.4); MEAN CELL VOLUME 88.6 fl (80.0-105.0); MEAN CORPUSCULAR HEMOGLOBIN 27.8 pg (25.0-35.0); MEAN CORPUSCULAR HGB CONC 31.3 g/dl (31.0-37.0); MEAN PLATELET VOLUME 10.6 fl (7.0-11.0); MONO # 1.1 (0.1-0.6); MONO % 6.3 % (1.0-6.0); RBC 2.63 10^6/uL (3.5-6.1); RED CELL DISTRIBUTION WIDTH 19.3 % (11.5-14.5); WHITE BLOOD COUNT 17.6 10^3/uL (4.5-11.0)
[2018-01-19 05:57] LABS: VENOUS BLOOD GAS BASE EXCESS -3.5 mmol/L (0.0-2.0); VENOUS BLOOD GAS PO2 113 mm/Hg (30-55); VENOUS BLOOD PH 7.32 (7.32-7.43)
[2018-01-19] MEDS ORDERED: MEROPENEM 500 MG in NS 500 MG/50 ML BAG IVPB SCH (06:00)
--- NOTE | 2018-01-19 06:08 | CP.PCM.CON ---
<RolandoDong - Last Filed: 01/19/18 06:13> History of Present Illness - History of Present Illness History of Present Illness: ICU Consultation CC: Sepsis secondary to UTI HPI: Mr. 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 Per the RN from [facility], patient has had chronic hematuria and this is not a new complaint. 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 Patient oriented to person and place but is noted to be lethargic and unable to answer further HPI and ROS questioning at this time. When asked how the patient feels, he states "I feel fine". PMH: As stated above PSH: CABG and AICD Family History: Unobtainable Social History: Former tobacco use; Denies any alcohol or illicit drug use; Resident of [facility] Allergies: NKDA Home Medications: As per [facility] Review of Systems - Review of Systems Systems not reviewed;Unavailable: Dementia, Other (Lethargic) Past Patient History - Infectious Disease Hx of Infectious Diseases: None - Past Medical History & Family History Past Medical History?: Yes - Past Social History Smoking Status: Current Some Days Smoker - CARDIAC Hx Congestive Heart Failure: Yes - PULMONARY Hx Chronic Obstructive Pulmonary Disease (COPD): Yes - NEUROLOGICAL Hx Neurological Disorder: Yes Hx Dementia: Yes Other/Comment: As per daughter, pt has mild dementia. - HEENT Hx HEENT Problems: No - RENAL Hx Renal Failure: Yes - ENDOCRINE/METABOLIC Hx Endocrine Disorders: No - HEMATOLOGICAL/ONCOLOGICAL Hx Blood Transfusions: Yes Hx Blood Transfusion Reaction: No - INTEGUMENTARY Hx Dermatological Problems: No - MUSCULOSKELETAL/RHEUMATOLOGICAL Hx Musculoskeletal Disorders: Yes Hx Falls: Yes - GASTROINTESTINAL Hx Gastrointestinal Disorders: Yes Other/Comment: Gastritis - GENITOURINARY/GYNECOLOGICAL Hx Genitourinary Disorders: No - PSYCHIATRIC Hx Psychophysiologic Disorder: No Hx Substance Use: No - SURGICAL HISTORY Hx Coronary Stent: Yes Other/Comment: CABG, coronary stent - ANESTHESIA Hx Anesthesia Reactions: No Hx Malignant Hyperthermia: No Meds Allergies/Adverse Reactions: Allergies Allergy/AdvReac Type Severity Reaction Status Date / Time No Known Allergies Allergy Verified 04/11/17 19:07 - Medications Medications: Current Medications Acetaminophen (Ofirmev) 1,000 mg in 100 mls @ 400 mls/hr IVPB Q6H PRN PRN Reason: Temperature >101 Stop: 01/21/18 04:56 Magnesium Sulfate 2 gm/ Sodium (Chloride) 104 mls @ 102 mls/hr IVPB ONCE ONE Stop: 01/19/18 05:56 Last Admin: 01/19/18 05:28 Dose: 102 mls/hr Meropenem/Sodium Chloride (Merrem Iv 500 Mg/Ns 50 Ml) 500 mg in 50 mls @ 100 mls/hr IVPB Q8 MARIUSZ; Protocol Stop: 01/19/18 14:29 Sodium Chloride (Sodium Chloride 0.9%) 1,000 mls @ 100 mls/hr IV .Q10H MARIUSZ Last Admin: 01/19/18 05:04 Dose: 100 mls/hr Vancomycin HCl (Vancomycin 1gm) 1 gm in 250 mls @ 167 mls/hr IVPB DAILY MARIUSZ; Protocol Potassium Phosphate 15 mmole/ (Sodium Chloride) 255 mls @ 42.5 mls/hr IVPB ONCE ONE Stop: 01/19/18 11:14 Pantoprazole Sodium (Protonix Inj) 40 mg IVP DAILY MARIUSZ Physical Exam - Constitutional Appears: Chronically Ill - Head Exam Head Exam: ATRAUMATIC, NORMOCEPHALIC - Eye Exam Eye Exam: EOMI, Normal appearance - ENT Exam ENT Exam: Mucous Membranes Dry - Neck Exam Neck exam: Negative for: Lymphadenopathy, Meningismus, Tenderness, Thyromegaly - Respiratory Exam Respiratory Exam: Clear to Auscultation Bilateral, NORMAL BREATHING PATTERN. absent: Rales, Rhonchi, Wheezes - Cardiovascular Exam Cardiovascular Exam: Tachycardia, +S1, +S2 - GI/Abdominal Exam GI & Abdominal Exam: Normal Bowel Sounds, Soft. absent: Distended, Firm, Guarding, Hernia, Tenderness - Extremities Exam Extremities exam: Positive for: normal capillary refill, pedal pulses present. Negative for: calf tenderness, joint swelling, pedal edema, tenderness - Back Exam Back exam: absent: CVA tenderness (L), CVA tenderness (R) - Neurological Exam Neurological exam: Altered - Skin Skin Exam: Dry, Intact, Warm Results - Vital Signs Recent Vital Signs: Last Vital Signs Temp 101.6 F H 01/19/18 04:17 Pulse 108 H 01/19/18 04:43 Resp 18 01/19/18 04:43 BP 98/34 L 01/19/18 04:43 Pulse Ox 97 01/19/18 04:43 - Labs Result Diagrams: 01/19/18 05:10 01/19/18 02:34 Labs: Laboratory Results - last 24 hr 01/19/18 01/19/18 01/19/18 02:34 02:34 02:34 WBC 11.0 RBC 2.97 L Hgb 8.1 L Hct 26.1 L MCV 87.9 D MCH 27.3 MCHC 31.0 RDW 19.0 H Plt Count 127 MPV 11.9 H Gran % 98.4 H Lymph % (Auto) 1.0 L [place] % (Auto) 0.5 L Eos % (Auto) 0.0 L Baso % (Auto) 0.1 Gran # 10.80 H Lymph # (Auto) 0.1 L [place] # (Auto) 0.1 Eos # (Auto) 0.0 Baso # (Auto) 0.01 Neutrophils % (Manual) 92 H Band Neutrophils % 8 H Lymphocytes % (Manual) 0 L Monocytes % (Manual) 0 L Platelet Evaluation Normal Large Platelets Present Hypochromasia 1+ Anisocytosis (manual) Slight PT 15.2 H INR 1.33 APTT 25.9 pO2 50 VBG pH 7.36 VBG pCO2 45.0 VBG HCO3 25.4 VBG Total CO2 26.8 VBG O2 Sat (Calc) 89.3 H VBG Base Excess -0.4 L VBG Potassium 3.7 Sodium 138.0 Chloride 106.0 Glucose 101 Lactate 2.5 H FiO2 21.0 Potassium Carbon Dioxide Anion Gap BUN Creatinine Est GFR ( Amer) Est GFR (Non-Af Amer) Random Glucose Calcium Phosphorus Magnesium Total Bilirubin AST ALT Alkaline Phosphatase Total Protein Albumin Globulin Albumin/Globulin Ratio Venous Blood Potassium 3.7 Urine Color Urine Appearance Urine pH Ur Specific [place] Urine Protein Urine Glucose (UA) Urine Ketones Urine Blood Urine Nitrate Urine Bilirubin Urine Urobilinogen Ur Leukocyte Esterase Urine RBC Urine WBC Ur Epithelial Cells Urine Bacteria 01/19/18 01/19/18 02:34 02:34 WBC RBC Hgb Hct MCV MCH MCHC RDW Plt Count MPV Gran % Lymph % (Auto) [place] % (Auto) Eos % (Auto) Baso % (Auto) Gran # Lymph # (Auto) [place] # (Auto) Eos # (Auto) Baso # (Auto) Neutrophils % (Manual) Band Neutrophils % Lymphocytes % (Manual) Monocytes % (Manual) Platelet Evaluation Large Platelets Hypochromasia Anisocytosis (manual) PT INR APTT pO2 VBG pH VBG pCO2 VBG HCO3 VBG Total CO2 VBG O2 Sat (Calc) VBG Base Excess VBG Potassium Sodium 137 Chloride 104 Glucose Lactate FiO2 Potassium 3.7 Carbon Dioxide 25 Anion Gap 12 BUN 25 H Creatinine 2.7 H Est GFR ( Amer) 27 Est GFR (Non-Af Amer) 22 Random Glucose 102 Calcium 9.6 Phosphorus 1.6 L Magnesium 1.6 L Total Bilirubin 0.8 AST 29 ALT 21 Alkaline Phosphatase 103 Total Protein 6.3 Albumin 3.0 Globulin 3.4 Albumin/Globulin Ratio 0.9 L Venous Blood Potassium Urine Color Light brown Urine Appearance Turbid Urine pH 6.5 Ur Specific [place] 1.020 Urine Protein 100 H Urine Glucose (UA) Negative Urine Ketones Negative Urine Blood Large H Urine Nitrate Negative Urine Bilirubin Moderate H Urine Urobilinogen 1.0 H Ur Leukocyte Esterase Small H Urine RBC Tntc Urine WBC 15 - 20 Ur Epithelial Cells None Urine Bacteria Many Assessment & Plan - Assessment and Plan (Free Text) Assessment: 87 year old male with a past medical history significant for HTN, CHF (last EF 55% in 12/2017), CAD s/p CABG, iron deficiency anemia, CKD stage IV, COPD, 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 Patient was found to septic with lactic acidosis, tachycardia, hypotension, and signs of UTI on UA. Chest X-Ray is pending official radiologist interpretation but is noted to have no gross pulmonary abnormalities. Plan: 1. Sepsis Secondary to UTI -Chest X-Ray pending official radiologist interpretation -UA showing signs of UTI -Blood and Urine cultures pending -Started on IV Vancomycin and Merrem -NS at 100mls/hr -s/p three liters NS bolus in the ED -Aspiration and Fall precautions -ID consulted, all recommendations appreciated 2. Normocytic Anemia -Noted to be chronic -Iron studies, B12, Folate and FOBT pending -Continue to monitor with daily CBC's 3. History of recent MRSA -MRSA screen pending -Contact precautions in place 4. 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 Garcia. Dong Marshall PGY2 - Date & Time Date: 01/19/18 Time: 05:42 <Diego Garcia - Last Filed: 01/19/18 06:49> Meds - Medications Medications: Current Medications Acetaminophen (Ofirmev) 1,000 mg in 100 mls @ 400 mls/hr IVPB Q6H PRN PRN Reason: Temperature >101 Stop: 01/21/18 04:56 Meropenem/Sodium Chloride (Merrem Iv 500 Mg/Ns 50 Ml) 500 mg in 50 mls @ 100 mls/hr IVPB Q8 MARIUSZ; Protocol Stop: 01/19/18 14:29 Sodium Chloride (Sodium Chloride 0.9%) 1,000 mls @ 100 mls/hr IV .Q10H MARIUSZ Last Admin: 01/19/18 05:04 Dose: 100 mls/hr Vancomycin HCl (Vancomycin 1gm) 1 gm in 250 mls @ 167 mls/hr IVPB DAILY MARIUSZ; Protocol Potassium Phosphate 15 mmole/ (Sodium Chloride) 255 mls @ 42.5 mls/hr IVPB ONCE ONE Stop: 01/19/18 11:14 Last Admin: 01/19/18 05:58 Dose: 42.5 mls/hr Pantoprazole Sodium (Protonix Inj) 40 mg IVP DAILY MARIUSZ Results - Vital Signs Recent Vital Signs: Last Vital Signs Temp 101.4 F H 01/19/18 05:56 Pulse 101 H 01/19/18 05:56 Resp 18 01/19/18 05:56 BP 96/43 L 01/19/18 05:56 Pulse Ox 99 01/19/18 05:56 - Labs Result Diagrams: 01/19/18 05:10 01/19/18 05:10 Labs: Laboratory Results - last 24 hr 01/19/18 01/19/18 01/19/18 02:34 02:34 02:34 WBC 11.0 RBC 2.97 L Hgb 8.1 L Hct 26.1 L MCV 87.9 D MCH 27.3 MCHC 31.0 RDW 19.0 H Plt Count 127 MPV 11.9 H Gran % 98.4 H Lymph % (Auto) 1.0 L [place] % (Auto) 0.5 L Eos % (Auto) 0.0 L Baso % (Auto) 0.1 Gran # 10.80 H Lymph # (Auto) 0.1 L [place] # (Auto) 0.1 Eos # (Auto) 0.0 Baso # (Auto) 0.01 Neutrophils % (Manual) 92 H Band Neutrophils % 8 H Lymphocytes % (Manual) 0 L Monocytes % (Manual) 0 L Platelet Evaluation Normal Large Platelets Present Hypochromasia 1+ Anisocytosis (manual) Slight PT 15.2 H INR 1.33 APTT 25.9 pO2 50 VBG pH 7.36 VBG pCO2 45.0 VBG HCO3 25.4 VBG Total CO2 26.8 VBG O2 Sat (Calc) 89.3 H VBG Base Excess -0.4 L VBG Potassium 3.7 Sodium 138.0 Chloride 106.0 Glucose 101 Lactate 2.5 H FiO2 21.0 Potassium Carbon Dioxide Anion Gap BUN Creatinine Est GFR ( Amer) Est GFR (Non-Af Amer) Random Glucose Calcium Phosphorus Magnesium Iron TIBC % Saturation Total Bilirubin AST ALT Alkaline Phosphatase Total Protein Albumin Globulin Albumin/Globulin Ratio Venous Blood Potassium 3.7 Urine Color Urine Appearance Urine pH Ur Specific [place] Urine Protein Urine Glucose (UA) Urine Ketones Urine Blood Urine Nitrate Urine Bilirubin Urine Urobilinogen Ur Leukocyte Esterase Urine RBC Urine WBC Ur Epithelial Cells Urine Bacteria 01/19/18 01/19/18 01/19/18 02:34 02:34 05:10 WBC RBC Hgb Hct MCV MCH MCHC RDW Plt Count MPV Gran % Lymph % (Auto) [place] % (Auto) Eos % (Auto) Baso % (Auto) Gran # Lymph # (Auto) [place] # (Auto) Eos # (Auto) Baso # (Auto) Neutrophils % (Manual) Band Neutrophils % Lymphocytes % (Manual) Monocytes % (Manual) Platelet Evaluation Large Platelets Hypochromasia Anisocytosis (manual) PT INR APTT pO2 VBG pH VBG pCO2 VBG HCO3 VBG Total CO2 VBG O2 Sat (Calc) VBG Base Excess VBG Potassium Sodium 137 Chloride 104 Glucose Lactate FiO2 Potassium 3.7 Carbon Dioxide 25 Anion Gap 12 BUN 25 H Creatinine 2.7 H Est GFR ( Amer) 27 Est GFR (Non-Af Amer) 22 Random Glucose 102 Calcium 9.6 Phosphorus 1.6 L Magnesium 1.6 L Iron < 10 L TIBC 187 L % Saturation 6 L Total Bilirubin 0.8 AST 29 ALT 21 Alkaline Phosphatase 103 Total Protein 6.3 Albumin 3.0 Globulin 3.4 Albumin/Globulin Ratio 0.9 L Venous Blood Potassium Urine Color Light brown Urine Appearance Turbid Urine pH 6.5 Ur Specific [place] 1.020 Urine Protein 100 H Urine Glucose (UA) Negative Urine Ketones Negative Urine Blood Large H Urine Nitrate Negative Urine Bilirubin Moderate H Urine Urobilinogen 1.0 H Ur Leukocyte Esterase Small H Urine RBC Tntc Urine WBC 15 - 20 Ur Epithelial Cells None Urine Bacteria Many 01/19/18 01/19/18 01/19/18 05:10 05:10 05:45 WBC 17.6 H D RBC 2.63 L Hgb 7.3 L Hct 23.3 L MCV 88.6 MCH 27.8 MCHC 31.3 RDW 19.3 H Plt Count 104 L MPV 10.6 Gran % 90.6 H Lymph % (Auto) 3.0 L [place] % (Auto) 6.3 H Eos % (Auto) 0.0 L Baso % (Auto) 0.1 Gran # 15.92 H Lymph # (Auto) 0.5 L [place] # (Auto) 1.1 H Eos # (Auto) 0.0 Baso # (Auto) 0.01 Neutrophils % (Manual) Band Neutrophils % Lymphocytes % (Manual) Monocytes % (Manual) Platelet Evaluation Large Platelets Hypochromasia Anisocytosis (manual) PT INR APTT pO2 113 H VBG pH 7.32 VBG pCO2 44.0 VBG HCO3 22.7 VBG Total CO2 24.1 VBG O2 Sat (Calc) 100.1 H VBG Base Excess -3.5 L VBG Potassium 3.6 Sodium 138 139.0 Chloride 108 H 110.0 H Glucose 106 Lactate 1.5 FiO2 21.0 Potassium 3.8 Carbon Dioxide 23 Anion Gap 11 BUN 24 H Creatinine 2.7 H Est GFR ( Amer) 27 Est GFR (Non-Af Amer) 22 Random Glucose 102 Calcium 8.8 Phosphorus 1.6 L Magnesium 1.6 L Iron TIBC % Saturation Total Bilirubin 0.8 AST 26 ALT 27 Alkaline Phosphatase 90 Total Protein 5.7 L Albumin 2.5 L Globulin 3.2 Albumin/Globulin Ratio 0.8 L Venous Blood Potassium 3.6 Urine Color Urine Appearance Urine pH Ur Specific [place] Urine Protein Urine Glucose (UA) Urine Ketones Urine Blood Urine Nitrate Urine Bilirubin Urine Urobilinogen Ur Leukocyte Esterase Urine RBC Urine WBC Ur Epithelial Cells Urine Bacteria Attending/Attestation - Attestation I have personally seen and examined this patient.: Yes I have fully participated in the care of the patient.: Yes I have reviewed all pertinent clinical information: Yes Notes (Text): Patient seen and examined with the resident, agree with above Severe sepsis attributed to complicated UTI in a [place] resident Responded to fluid resuscitation at the moment, will start pressor support as needed acute encephalopathy attributed to sepsis, UZAIR on CKD Will admit to the ICU for higher level of care
[2018-01-19 06:14] LABS: ALB/GLOB RATIO 0.8 (1.1-1.8); ALBUMIN 2.5 g/dL (3.0-4.8); CALCIUM 8.8 mg/dL (8.4-10.5)
[2018-01-19 06:26] LABS: TOTAL IRON BINDING CAPACITY 187 ug/dL (261-462)
[2018-01-19 06:27] LABS: % IRON SATURATION 6 % (20-55); IRON < 10 ug/dL (45-180)
--- NOTE | 2018-01-19 06:34 | PCM.SEPTIC ---
Sepsis Progress Note - Reassessment Type Date of Evaluation: 01/19/18 Time of Evaluation: 06:33 Reassessment Type: Non-invasive reassessment - Non Invasive Reassessment Were the most recent vital sign reviewed: Yes Vital Sign (Latest): Temp Pulse Resp BP Pulse Ox 101.4 F H 101 H 18 96/43 L 99 01/19/18 05:56 01/19/18 05:56 01/19/18 05:56 01/19/18 05:56 01/19/18 05:56 Cardiovascular: Yes: Chest Non Tender, Tachycardia. No: JVD, Bradycardia, Irregularly Irregular Respiratory: Yes: Normal Breath Sounds. No: Decreased Breath Sounds, Crackles, Rales, Rhonchi, Stridor, Wheezing Capillary Refill: Normal (Less than 2 sec) Skin: Warm, Dry
[2018-01-19] MEDS ORDERED: Albuterol-Ipratrop 3 mg / 0.5 (3 ml) UD IH PRN (08:22)
--- NOTE | 2018-01-19 08:25 | RAD ---
Date of service: 01/19/2018 HISTORY: chf COMPARISON: 01/06/2018 FINDINGS: LUNGS: Infiltrate or effusion at left lung base obscuring the diaphragm PLEURA: No significant pleural effusion identified, no pneumothorax apparent. CARDIOVASCULAR: Aortic calcifications Moderate cardiomegaly improved vascular congestion OSSEOUS STRUCTURES: No significant abnormalities. VISUALIZED UPPER ABDOMEN: Normal. OTHER FINDINGS: None. IMPRESSION: Improved CHF
--- NOTE | 2018-01-19 08:59 | US ---
Date of service: 01/19/2018 HISTORY: cholelithiasis COMPARISON: None. TECHNIQUE: Sonographic evaluation of the abdomen. FINDINGS: LIVER: Measures 15.13 x 11.70 cm. Normal echogenicity of the liver parenchyma. No mass. No intrahepatic bile duct dilatation. GALLBLADDER: Gallstones. No focal tenderness or wall edema. 4 x 8 mm stone in the gallbladder neck COMMON BILE DUCT: Measures 3 mm. No stones. No dilatation. PANCREAS: Unremarkable as visualized. No mass. No ductal dilatation. RIGHT KIDNEY: Measures 11.73 x 4.70 x 5.52cm. Normal echogenicity. No calculus, mass, or hydronephrosis. LEFT KIDNEY: Measures 11.67 x 7.64 x 6.03cm. Normal echogenicity. No calculus, mass, or hydronephrosis. Multiple cysts SPLEEN: Normal in size and contour. No mass. AORTA: No aneurysmal dilatation. IVC: Unremarkable. OTHER FINDINGS: None. IMPRESSION: Gallstones. No focal tenderness or wall edema. 4 x 8 mm stone in the gallbladder neck
--- NOTE | 2018-01-19 09:18 | CP.PCM.PN ---
Subjective - Date & Time of Evaluation Date of Evaluation: 01/19/18 Time of Evaluation: 08:15 - Subjective Subjective: Patient seen and examined at bedside, reports no major complaints. Objective - Vital Signs/Intake and Output Vital Signs (last 24 hours): Temp Pulse Resp BP Pulse Ox 101.4 F H 101 H 18 96/43 L 99 01/19/18 05:56 01/19/18 05:56 01/19/18 05:56 01/19/18 05:56 01/19/18 05:56 - Medications Medications: Current Medications Acetaminophen (Tylenol 325mg Tab) 325 mg PO Q4 PRN PRN Reason: FEVER <100.4 Albuterol/Ipratropium (Duoneb 3 Mg/0.5 Mg (3 Ml) Ud) 3 ml IH Q4 PRN PRN Reason: Shortness of Breath Arformoterol Tartrate (Brovana) 15 mcg IH [id number] [facility] Aspirin (Ecotrin) 81 mg PO DAILY [facility] Budesonide (Pulmicort Respules) 0.25 mg IH [id number] [facility] Diltiazem HCl (Cardizem Cd) 180 mg PO DAILY [facility] Hydralazine HCl (Apresoline) 10 mg PO DAILY PRN PRN Reason: Systolic Blood Pressure >170 Acetaminophen (Ofirmev) 1,000 mg in 100 mls @ 400 mls/hr IVPB Q6H PRN PRN Reason: Temperature >101 Stop: 01/21/18 04:56 Meropenem/Sodium Chloride (Merrem Iv 500 Mg/Ns 50 Ml) 500 mg in 50 mls @ 100 mls/hr IVPB Q8 [facility]; Protocol Stop: 01/19/18 14:29 Sodium Chloride (Sodium Chloride 0.9%) 1,000 mls @ 100 mls/hr IV .Q10H [facility] Last Admin: 01/19/18 05:04 Dose: 100 mls/hr Vancomycin HCl (Vancomycin 1gm) 1 gm in 250 mls @ 167 mls/hr IVPB DAILY [facility]; Protocol Potassium Phosphate 15 mmole/ (Sodium Chloride) 255 mls @ 42.5 mls/hr IVPB ONCE ONE Stop: 01/19/18 11:14 Last Admin: 01/19/18 05:58 Dose: 42.5 mls/hr Isosorbide Mononitrate (Imdur Er) 30 mg PO DAILY [facility] Levothyroxine Sodium (Synthroid) 25 mcg PO DAILY [facility] Memantine (Namenda) 10 mg PO DAILY [facility] Montelukast Sodium (Singulair) 10 mg PO DAILY [facility] Pantoprazole Sodium (Protonix Inj) 40 mg IVP DAILY [facility] Pantoprazole Sodium (Protonix Ec Tab) 20 mg PO DAILY [facility] Tamsulosin HCl (Flomax) 0.8 mg PO DAILY [facility] - Labs Labs: 01/19/18 05:10 01/19/18 05:10 PT 15.2 SECONDS (9.4-12.5) H 01/19/18 02:34 INR 1.33 01/19/18 02:34 APTT 25.9 Seconds (25.1-36.5) 01/19/18 02:34 - Constitutional Appears: Non-toxic, No Acute Distress, Cachectic, Chronically Ill - Eye Exam Eye Exam: Normal appearance - ENT Exam ENT Exam: Mucous Membranes Dry - Neck Exam Neck Exam: Full ROM - Respiratory Exam Respiratory Exam: Clear to Ausculation Bilateral, NORMAL BREATHING PATTERN - Cardiovascular Exam Cardiovascular Exam: REGULAR RHYTHM, +S1, +S2 - GI/Abdominal Exam GI & Abdominal Exam: Soft, Normal Bowel Sounds - Extremities Exam Extremities Exam: Normal Inspection - Neurological Exam Neurological Exam: Alert, Awake Assessment and Plan - Assessment and Plan (Free Text) Assessment: Patient is 87yo male with PMhx of HTN, CHF, CAD s/p CABG, CKD baseline Cr ~2.7,, COPD, chronic indwelling sol, PICC line, presents with severe sepsis, UTI Currently febrile, BP stable SBP 100s, HR 90s, in NAD Labs, imaging chart reviewed +UA Previous cultures positive for MRSA bacteremia Severe Sepsis UTI CAD CHF Dehydration Acute on CKD COPD Recommend: - supp o2 as needed, duonebs PRN, IS, goal sat 90% - Broad spectrum abx, Merrem, Vanco - ID consult - IVF - Hold Lasix - follow up cultures, BCx, UCx, Procal - If blood cultures, positive would remove PICC Line - I/Os - GI ppx, Pepcid - DVT ppx, HSQ - Monitor in MICU Critical care time 35 minutes
[2018-01-19] MEDS: diltiaZEM 180 mg/24 Hours CD Cap PO SCH (09:43)
[2018-01-19] MEDS: Levothyroxine 25 MCG TAB PO SCH (09:47)
[2018-01-19] MEDS ORDERED: DAPTOmycin 500 mg Inj (Cubicin) IV SCH (10:00)
[2018-01-19] MEDS: Pantoprazole 20 mg EC Tab PO SCH (10:19)
[2018-01-19] MEDS: Budesonide 0.25 mg/2 ml Inhal Susp UD IH SCH ×2 (10:32→20:09)
--- NOTE | 2018-01-19 10:38 | CT ---
Date of service: 01/19/2018 PROCEDURE: CT Abdomen and Pelvis without intravenous contrast HISTORY: sepsis COMPARISON: None. TECHNIQUE: Without contrast. Contrast dose: Radiation dose: Total exam DLP = 854.48 mGy-cm. This CT exam was performed using one or more of the following dose reduction techniques: Automated exposure control, adjustment of the mA and/or kV according to patient size, and/or use of iterative reconstruction technique. FINDINGS: LOWER THORAX: Consolidation at the left lung base. Small pleural effusions LIVER: Unremarkable. No gross lesion or ductal dilatation. GALLBLADDER AND BILE DUCTS: There is an 8 mm stone near the neck of the gallbladder. There is no evidence of cholecystitis PANCREAS: Unremarkable. No gross lesion or ductal dilatation. SPLEEN: Unremarkable. ADRENALS: Unremarkable. No mass. KIDNEYS AND URETERS: Unremarkable. No hydronephrosis. No solid mass. VASCULATURE: Unremarkable. No aortic aneurysm. Aortic calcifications are seen BOWEL: Unremarkable. No obstruction. No gross mural thickening. APPENDIX: Unremarkable. Normal appendix. PERITONEUM: Unremarkable. No free fluid. No free air. LYMPH NODES: Unremarkable. No enlarged lymph nodes. BLADDER: There is a Mann catheter decompressing the bladder. The bladder wall is thickened. REPRODUCTIVE: Unremarkable. BONES: Disc degeneration in the lower lumbar spine OTHER FINDINGS: The report concurs with the preliminary [facility] report IMPRESSION: Gallstone near the neck of the gallbladder. No evidence of cholecystitis. Small pleural effusions and subsegmental atelectasis at the left lung base
[2018-01-19 12:24] LABS: FOLATE 8.8 ng/mL
--- NOTE | 2018-01-19 15:36 | CARD ---
APPROVED REPORT Date of service: 01/19/2018 EKG Measurement Heart [id number] <Conclusion> Sinus tachycardia Right bundle branch block Left anterior fascicular block Bifascicular block Left ventricular hypertrophy with repolarization abnormality Abnormal ECG
[2018-01-19] MEDS ORDERED: Vancomycin 1gm in NS 250ml 1 GM/250 ML BAG IVPB SCH (16:00)
[2018-01-19] MEDS: MEROPENEM 500 MG in NS 500 MG/50 ML BAG IVPB SCH (17:47)
[2018-01-19] MEDS: Arformoterol 15 mcg/2 ml Inh Sol IH SCH (20:09)
[2018-01-20] MEDS: Sodium Chloride 0.9% 1,000 ML IV SCH (04:24)
[2018-01-20] MEDS: MEROPENEM 500 MG in NS 500 MG/50 ML BAG IVPB SCH ×3 (04:24→21:05)
[2018-01-20 06:07] LABS: BASO # 0.01 K/mm3 (0.0-2.0); GRAN # 17.79 (1.4-6.5); GRAN % 88.7 % (50.0-68.0); LYMPH # 1.3 (1.2-3.4); LYMPH % 6.2 % (22.0-35.0); MEAN CELL VOLUME 87.9 fl (80.0-105.0); MEAN CORPUSCULAR HEMOGLOBIN 26.9 pg (25.0-35.0); MEAN CORPUSCULAR HGB CONC 30.7 g/dl (31.0-37.0); MONO % 5.1 % (1.0-6.0); PLATELET COUNT 113 10^3/uL (120.0-450.0); RBC 2.97 10^6/uL (3.5-6.1); RED CELL DISTRIBUTION WIDTH 19.1 % (11.5-14.5); WHITE BLOOD COUNT 20.1 10^3/uL (4.5-11.0)
[2018-01-20 06:32] LABS: ALB/GLOB RATIO 0.8 (1.1-1.8); ALBUMIN 2.7 g/dL (3.0-4.8)
--- NOTE | 2018-01-20 07:24 | HP ---
DATE OF EXAM: 01/19/2018 Patient seen and examined at the bedside 01/19/2018. CHIEF COMPLAINT: Blood in the urine, fever, and fatigue. HISTORY OF PRESENT ILLNESS: Mr. Faraz Zuñiga 87 years old with past medical history of COPD, congestive heart failure, and dementia came to the emergency department from [facility] with fever of 103. Patient has no physical complaints, but just feeling fatigued and tired. Twelve hours before admission, [facility] called me the patient has blood in the urine. I told them to call Dr. Lul Lagnford, patient's urologist, but bleeding continued and patient started fever then we brought patient to the emergency room. We admitted the patient, called Urology consult and ID consult. PAST MEDICAL HISTORY: COPD, dementia, renal failure, history of blood transfusion, fall, gastritis, CABG, and coronary stenting. FAMILY HISTORY: Father and mother, noncontributory. HABITS: History of smoking, currently smoking. No drugs. No ethanol. ALLERGIES: PATIENT NOT ALLERGIC WITH ANY MEDICATIONS. HOME MEDICATIONS. Acetaminophen, albuterol, aspirin, Pulmicort, Lasix, Imdur, Synthroid, Namenda, Singulair, Protonix, Flomax, Cardizem, and hydralazine. REVIEW OF SYSTEMS: Patient was seen and examined at the bedside in his room, looking comfortable, but fatigued and lethargic, still having blood in the urine, feeling feverish. No shortness of breath. No chest pain. No abdominal pain. Has hematuria. History of pulling Mann catheter with inflated balloon. History of pulling his midline in the [facility]. PHYSICAL EXAMINATION: VITAL SIGNS: Temperature 98.1, T-max as nursing staff was 103, over here is 99.1, 101.4, 101.6, and 103.8; pulse 95; blood pressure 107/55; and respiratory rate 10. HEENT: Head normocephalic, atraumatic. Eyes, PERRLA. Extraocular muscles intact. Conjunctivae clear. Nose patent. NECK: Supple. No carotid bruit. No JVD or thyromegaly. CHEST: Bilaterally symmetrical. HEART: S1, S2 positive. LUNGS: Clear to auscultation. ABDOMEN: Soft. Bowel sounds positive. No organomegaly. EXTREMITIES: No edema. No cyanosis. NEUROLOGIC: Patient is sleepy, arousable. He is not able to follow simple commands. LABORATORY DATA: White blood cell on admission was 11, now it is 17.6, hemoglobin 7.3, hematocrit 23.3, and platelets 104, chloride 108, sodium 138, BUN 24, creatinine 2.7, phosphorus 1.6, and magnesium 1.6. ASSESSMENT AND PLAN: Mr. Faraz Zuñiga 87 years old male with leukocytosis, anemia, hyperchloremia, renal insufficiency, hypophosphatemia, hypomagnesemia, prolactin is high 116.70, proteinuria, hematuria, and urinary tract infection. Patient was actually getting IV antibiotics in the rehab. Plan was to give one month IV antibiotics, then he pulled his midline, after that he pulled his Mann catheter with inflated balloon. Now, we admitted the patient. Called Infectious Disease consult with Dr. Fairbanks. Sepsis protocol done. Abdominal ultrasound done. CAT scan of abdomen and pelvis done. Hematuria, hypertension, congestive heart failure, coronary artery disease status post coronary artery bypass graft, chronic kidney disease stage IV, chronic obstructive pulmonary disease, chronic indwelling Mann catheter with urine retention secondary to prostate enlargement, history of automatic implantable cardioverter defibrillator, and coronary artery bypass graft. Now, patient is in the intensive care unit looking septic, getting IV antibiotics, getting vancomycin and Merrem, and meds , bolus in the emergency department. Aspiration, fall precautions. Anemia, normocytic. History of recent methicillin-resistant Staphylococcus aureus. Patient has cholelithiasis. Discussion with nursing staff, urging patient to be compliant. Repeat labs. We will followup. Irasema Rivas MD [facility]
[2018-01-20] MEDS: Arformoterol 15 mcg/2 ml Inh Sol IH SCH ×2 (07:39→20:19)
[2018-01-20] MEDS: Budesonide 0.25 mg/2 ml Inhal Susp UD IH SCH ×2 (07:40→20:21)
[2018-01-20] MEDS: Levothyroxine 25 MCG TAB PO SCH (09:06)
[2018-01-20] MEDS: diltiaZEM 180 mg/24 Hours CD Cap PO SCH (09:06)
[2018-01-20] MEDS: Pantoprazole 20 mg EC Tab PO SCH (09:07)
--- NOTE | 2018-01-20 14:02 | PN ---
DATE: 01/20/2018 SUBJECTIVE: The patient is seen earlier today in [facility], bed 6. The patient's temperature is improved. He is much more awake and alert today, responsive. PHYSICAL EXAMINATION: VITAL SIGNS: On exam, temperature is 98, T-max was 101.4 yesterday; blood pressure is 130/80; respiratory rate of 24; heart rate of 102. HEENT: Examination of HEENT is unremarkable. NECK: Supple. LUNGS: Have decreased breath sounds. HEART: Normal S1, S2. ABDOMEN: Soft, nontender. LABORATORY DATA: Laboratory examination reveals a white count of 20,000, hemoglobin of 8, platelets of 113. Chemistries reveals a BUN of 34, creatinine of 2.7. Procalcitonin is 116.7. Urinalysis is noted and many bacteria, 15-20 wbc's. The patient's blood cultures are positive for a gram-positive cocci in one bottle and urine culture has a gram-negative gisela. The nares MRSA is not detected. Review of orders reveals the patient to be on daptomycin, doxycycline and meropenem. The patient had also received the vancomycin yesterday. Dr. Rivas's history of physical examination is noted. ASSESSMENT AND PLAN: An 87-year-old male who is admitted with a fever of 103 initially and hypotension, tachycardia. The patient with severe sepsis with gram-positive cocci bacteremia and gram-negative gisela in the urine in a patient's with hypertension, the patient with coronary artery bypass graft, congestive heart failure. The patient has a pacemaker. Concerned about pacemaker infection because of the gram-positive cocci, although it is only one bottle. We will repeat blood cultures x2. Continue the meropenem pending identification and sensitivity of the gram-negative gisela in the urine and identification and sensitivity of gram-positive cocci in the blood. The patient had an abdominal ultrasound, which showed gallstones and stone in the gallbladder neck. The patient also had a CAT scan of the abdomen and pelvis, which shows gallstone near the neck of the gallbladder. No evidence of cholecystitis. The patient also had a chest x-ray, which showed a left base infiltrate, healthcare-associated pneumonia in this patient. We will discontinue the doxycycline. Continue with the daptomycin and meropenem pending repeat green blood cultures and further identification and sensitivity of the organisms time. Thor Fairbanks MD [facility] # [id number]
[2018-01-20] MEDS ORDERED: DiphenhydrAMINE 50 mg/ml Inj IVP ONE (22:04)
[2018-01-21] MEDS: MEROPENEM 500 MG in NS 500 MG/50 ML BAG IVPB SCH ×2 (05:59→19:47)
[2018-01-21 06:35] LABS: ARTERIAL BLOOD GAS HEMOGLOBIN 7.3 g/dL (11.7-17.4); ARTERIAL BLOOD GAS O2 CAPACITY 9.9 mL/dl (16-24); ARTERIAL BLOOD GAS O2 CONTENT 8.2 ML/dl (15-23); ARTERIAL BLOOD GAS PCO2 33 mm/Hg (35-45); ARTERIAL BLOOD GAS PH 7.32 (7.35-7.45)
[2018-01-21] MEDS: Arformoterol 15 mcg/2 ml Inh Sol IH SCH ×2 (07:59→20:01)
[2018-01-21] MEDS: Budesonide 0.25 mg/2 ml Inhal Susp UD IH SCH ×2 (07:59→20:01)
--- NOTE | 2018-01-21 09:09 | PN ---
DATE: 01/20/2018 SUBJECTIVE: The patient is an 87-year-old male. The patient was seen in his room, in the unit, looking comfortable. No fever, no chills. No nausea, vomiting, or diarrhea. No hematuria or hematochezia. No swelling of the legs. No headache. No dizziness. Awake and alert. Follows simple commands today. PHYSICAL EXAMINATION: VITAL SIGNS: Temperature 98, T-max of 100.4; respiratory rate 18; blood pressure 130/80. HEENT: Head normocephalic, atraumatic. Eyes PERRLA. Extraocular muscles intact. Conjunctivae clear. Nose patent. Mucous membrane moist. NECK: Supple. No carotid bruit. No JVD or thyromegaly. CHEST: Bilaterally symmetrical. HEART: S1 and S2 positive. LUNGS: Clear to auscultation. Decreased breath sounds bilaterally. ABDOMEN: Soft. Bowel sounds present. No organomegaly. EXTREMITIES: No edema. No cyanosis. NEUROLOGICAL: The patient is awake and alert. Moving all four extremities. No focal deficits. LABORATORY DATA: White blood cells 20,000, hemoglobin of 8. BUN 34, creatinine of 2.7. Nasal MRSA is negative. ASSESSMENT AND PLAN: Mr. Faraz Zuñiga is an 87-year-old male came with sepsis, fever of 103, hypotension, and tachycardia. The patient has severe sepsis with gram-negative cocci bacteremia and gram-negative gisela in the urine in a patient with hypertension, the patient is with coronary artery disease with bypass graft, congestive heart failure. The patient has pacemaker. According to Dr. Fairbanks, repeat the blood cultures x2. Gastric and deep venous thrombosis prophylaxes. The patient should be having Mann catheter. Repeat lab work for healthcare-associated pneumonia. Repeat labs. We will follow up. Irasema Rivas MD [facility]
--- NOTE | 2018-01-21 09:09 | CON ---
DATE: 01/19/2018 CHIEF COMPLAINT: Weakness times several days. HISTORY OF PRESENT ILLNESS: This is an 87-year-old male transferred from a [facility] skilled nursing with past medical history of congestive heart failure, dementia, and chronic obstructive lung disease, who was transferred from the skilled nursing because of fevers and weakness. The patient is a poor historian at this point. REVIEW OF SYSTEMS: A 14-point review of systems is performed, and there have been fevers reported. There is mild shortness of breath. No chest pain. There is no abdominal pain, and no dysuria or frequency is reported. The patient does have a PICC line in him. PAST MEDICAL HISTORY: Significant for coronary artery disease, congestive heart failure, chronic obstructive lung disease, dementia, gastritis, renal disease, anemia, and hypertension. The patient was seen last month in [facility]. The patient also does have pulmonary hypertension. The congestive heart failure is diastolic congestive heart failure, and the patient also has a pacemaker. PAST SURGICAL HISTORY: Significant for a pacemaker, cardiac catheterization, and coronary artery bypass graft. ALLERGIES: THE PATIENT HAS NO KNOWN ALLERGIES. MEDICATIONS: Medications at skilled nursing are reviewed and include Flomax, Synthroid, and Lasix. PHYSICAL EXAMINATION: VITAL SIGNS: The patient is in bed with a temperature of 103.8, blood pressure is 82/40, respiratory rate of 26, and heart rate of 119. HEENT: Unremarkable. NECK: Supple. LUNGS: Have decreased breath sounds. HEART : Normal S1, S2. ABDOMEN: Soft, nontender. EXTREMITIES: The patient's PICC line site is clean. LABORATORY DATA: Laboratory examination reveals a white count of 17,600, hemoglobin of 7, platelets of 104, 92% polys, 8% bandemia. The patient has a creatinine of 2.7, it has been high in the past and LFTs are normal. Urinalysis has 15 to 20 wbc's, many bacteria. Microbiology is pending. Review of old micro blood cultures revealed the patient had MRSA bacteremia and vancomycin sensitive and TOBY of 1. The patient had multiple blood cultures on 01/01/2018. The last time I saw the patient on 01/09/2018 last month, the patient was supposed to be on daptomycin and was supposed to complete 28 days of daptomycin. The patient had a CAT scan of the abdomen and pelvis, results are pending. Dr. Heraclio Chaudhry's note is reviewed. There are infiltrates in the chest x-ray. ASSESSMENT/PLAN: This s an 87-year-old male skilled nursing patient with chronic obstructive pulmonary disease, diastolic congestive heart failure, dementia, coronary artery disease, gastritis, and renal disease, presenting with hypotension and fever of 103 with severe sepsis and healthcare-associated pneumonia, urine as the source, must rule out bacteremia from the PICC line. The patient is supposed to be on daptomycin. We will restart the daptomycin and add meropenem. Pending blood culture, urine cultures, CAT scan of the abdomen and pelvis results, and we will follow closely with you. Overall prognosis is quite poor for this 87-year-old. Should consider hospice setting. Review of cultures have been ordered. Of note, if daptomycin will not give its adequate coverage as far as staphylococcus is concerned and we will also order a procalcitonin. Case was discussed with Dr. Heraclio Chaudhry who will be pulling the PICC line, since the patient is hypotensive, we will on pressors and responded to fluids. We will also add IV doxycycline, both for methicillin-resistant Staphylococcus aureus coverage coverage, pending green-culture results and workup results. Although the creatinine is elevated, we will also order a procalcitonin, maybe of importance if it is normal. Case was discussed with nursing staff. Thor Fairbanks MD
[2018-01-21] MEDS: diltiaZEM 180 mg/24 Hours CD Cap PO SCH (10:32)
[2018-01-21] MEDS: Levothyroxine 25 MCG TAB PO SCH (10:32)
[2018-01-21] MEDS: Pantoprazole 20 mg EC Tab PO SCH (10:33)
--- NOTE | 2018-01-21 11:03 | RAD ---
Date of service: 01/21/2018 HISTORY: r/o PNA COMPARISON: 01/19/2018 FINDINGS: LUNGS: Bilateral infiltrates most consistent with pulmonary edema PLEURA: No significant pleural effusion identified, no pneumothorax apparent. CARDIOVASCULAR: Aortic calcifications Moderate to severe cardiomegaly OSSEOUS STRUCTURES: No significant abnormalities. VISUALIZED UPPER ABDOMEN: Normal. OTHER FINDINGS: Single lead pacemaker IMPRESSION: Pulmonary edema
--- NOTE | 2018-01-21 16:19 | CP.PCM.PN ---
Subjective - Date & Time of Evaluation Date of Evaluation: 01/21/18 Time of Evaluation: 08:15 - Subjective Subjective: No fevers, still on BiPAP, not in distress. Objective - Vital Signs/Intake and Output Vital Signs (last 24 hours): Temp Pulse Resp BP Pulse Ox 97.6 F 71 16 131/60 88 L 01/21/18 16:07 01/21/18 16:07 01/21/18 16:07 01/21/18 16:07 01/20/18 20:11 Intake and Output: 01/21/18 01/21/18 06:59 18:59 Intake Total 660 0 Output Total 350 Balance 310 0 - Medications Medications: Current Medications Acetaminophen (Tylenol 325mg Tab) 325 mg PO Q4 PRN PRN Reason: FEVER <100.4 Albuterol/Ipratropium (Duoneb 3 Mg/0.5 Mg (3 Ml) Ud) 3 ml IH Q4 PRN PRN Reason: Shortness of Breath Arformoterol Tartrate (Brovana) 15 mcg IH [id number] [facility] Last Admin: 01/21/18 07:59 Dose: 15 mcg Aspirin (Ecotrin) 81 mg PO DAILY [facility] Last Admin: 01/21/18 10:32 Dose: 81 mg Budesonide (Pulmicort Respules) 0.25 mg IH [id number] [facility] Last Admin: 01/21/18 07:59 Dose: 0.25 mg Diltiazem HCl (Cardizem Cd) 180 mg PO DAILY [facility] Last Admin: 01/21/18 10:32 Dose: 180 mg Hydralazine HCl (Apresoline) 10 mg PO DAILY PRN PRN Reason: Systolic Blood Pressure >170 Meropenem/Sodium Chloride (Merrem Iv 500 Mg/Ns 50 Ml) 500 mg in 50 mls @ 100 mls/hr IVPB 0600,1800 [facility]; Protocol Last Admin: 01/21/18 05:59 Dose: 100 mls/hr Daptomycin 450 mg/ Sodium (Chloride) 100 mls @ 100 mls/hr IV Q48H [facility] Stop: 01/24/18 12:01 Last Admin: 01/21/18 13:07 Dose: 100 mls/hr Isosorbide Mononitrate (Imdur Er) 30 mg PO DAILY [facility] Last Admin: 01/21/18 10:32 Dose: 30 mg Levothyroxine Sodium (Synthroid) 25 mcg PO DAILY [facility] Last Admin: 01/21/18 10:32 Dose: 25 mcg Memantine (Namenda) 10 mg PO DAILY [facility] Last Admin: 01/21/18 10:32 Dose: 10 mg Montelukast Sodium (Singulair) 10 mg PO DAILY [facility] Last Admin: 01/21/18 10:33 Dose: 10 mg Pantoprazole Sodium (Protonix Ec Tab) 20 mg PO DAILY [facility] Last Admin: 01/21/18 10:33 Dose: 20 mg Tamsulosin HCl (Flomax) 0.8 mg PO DAILY [facility] Last Admin: 01/21/18 10:32 Dose: 0.8 mg - Labs Labs: 01/20/18 05:50 01/20/18 05:50 PT 15.2 SECONDS (9.4-12.5) H 01/19/18 02:34 INR 1.33 01/19/18 02:34 APTT 25.9 Seconds (25.1-36.5) 01/19/18 02:34 - Constitutional Appears: Chronically Ill - Head Exam Head Exam: NORMAL INSPECTION - Respiratory Exam Respiratory Exam: Decreased Breath Sounds - Cardiovascular Exam Cardiovascular Exam: +S1, +S2 - GI/Abdominal Exam GI & Abdominal Exam: Soft. absent: Tenderness Assessment and Plan - Assessment and Plan (Free Text) Plan: Assessment severe sepsis due to Staph aureus bacteremia R/O pacemaker infection, on top of ESBL E. coli UTI iron deficiency anemia dyslipidemia COPD CAD S/P CABG with severe ischemic cardiomyopathy S/P pacemaker placement HTN pulmonary HTN Plan continue Daptomycin pending sensitivities of the Staph aureus in the blood - follow up repeat blood cx from 01/20 - follow up 2D echo and patient may need ANDRE continue Merrem for UTI will monitor clinically
--- NOTE | 2018-01-22 03:17 | PN ---
DATE: 01/21/2018 SUBJECTIVE: The patient was seen and examined on the bedside on 01/21/2018, has soft restraint on the upper extremity, having BiPAP. No fever. No chills. No nausea, no vomiting. No headache or dizziness. No chest pain. No palpitation. PHYSICAL EXAMINATION: VITAL SIGNS: Temperature 97.6, pulse 71, respirations 16, blood pressure 131/68, pulse ox 88%. HEENT: Head is normocephalic, atraumatic. Eyes; PERRLA. Extraocular muscles intact. Conjunctivae clear. Nose patent. Mucous membrane moist. NECK: Supple. No carotid bruit. No JVD or thyromegaly. CHEST: Bilaterally symmetrical. HEART: S1 and S2 positive. LUNGS: Clear to auscultation. ABDOMEN: Soft. Bowel sounds present. No organomegaly. EXTREMITIES: No edema, no cyanosis. NEUROLOGIC: The patient is awake and alert, moving all four extremities. No focal deficit. MEDICATIONS: Albuterol, Brovana, aspirin, Respules, Cardizem, hydralazine, daptomycin, isosorbide. LABORATORY DATA: White blood cell 20.1, hemoglobin 8.1, hematocrit 26.1, platelets 113,000. Sodium 140, potassium 4.4, BUN 36, creatinine 2.6, glucose 86. ASSESSMENT AND PLAN: Mr. Faraz Zuñiga is an 87 years old male with leukocytosis, anemia, thrombocytopenia, hyperchloremia, renal insufficiency, had severe sepsis due to Staphylococcus aureus bacteremia, rule out pacemaker infection, on top of Extended-spectrum beta-lactamase Escherichia coli, urinary tract infection, iron-deficiency anemia, dyslipidemia, chronic obstructive pulmonary disease, coronary artery disease status post coronary artery bypass graft with severe ischemic cardiomyopathy, hypertension, pulmonary hypertension. Continue daptomycin pending on the sensitivity of the Staphylococcus aureus in the blood. Follow up repeat blood cultures. . Follow up 2D echocardiography, may needed ANDRE. Continue present treatment. Repeat labs. The patient still in the unit, has to be compliant. Repeat labs. We will follow. Irasema Rivas MD
[2018-01-22] MEDS: MEROPENEM 500 MG in NS 500 MG/50 ML BAG IVPB SCH ×2 (05:22→18:11)
[2018-01-22 07:09] LABS: HEMOGLOBIN 8.6 g/dL (14.0-18.0); MEAN CELL VOLUME 87.4 fl (80.0-105.0); MEAN CORPUSCULAR HEMOGLOBIN 27.1 pg (25.0-35.0); PLATELET COUNT 124 10^3/uL (120.0-450.0); RBC 3.17 10^6/uL (3.5-6.1); RED CELL DISTRIBUTION WIDTH 18.5 % (11.5-14.5); WHITE BLOOD COUNT 8.3 10^3/uL (4.5-11.0)
[2018-01-22 07:17] LABS: ALB/GLOB RATIO 0.8 (1.1-1.8); ALBUMIN 2.6 g/dL (3.0-4.8); CALCIUM 9.4 mg/dL (8.4-10.5)
[2018-01-22] MEDS: Arformoterol 15 mcg/2 ml Inh Sol IH SCH ×2 (07:46→20:56)
[2018-01-22] MEDS: Budesonide 0.25 mg/2 ml Inhal Susp UD IH SCH ×2 (07:47→20:56)
[2018-01-22] MEDS: diltiaZEM 180 mg/24 Hours CD Cap PO SCH (11:06)
[2018-01-22] MEDS: Levothyroxine 25 MCG TAB PO SCH (11:06)
[2018-01-22] MEDS: Pantoprazole 20 mg EC Tab PO SCH (11:07)
--- NOTE | 2018-01-22 11:55 | CP.PCM.PN ---
Subjective - Date & Time of Evaluation Date of Evaluation: 01/22/18 Time of Evaluation: 09:05 - Subjective Subjective: Comfortable in bed but continues to be on the BiPAP, no fevers. Objective - Vital Signs/Intake and Output Vital Signs (last 24 hours): Temp Pulse Resp BP Pulse Ox 97.6 F 71 16 131/60 88 L 01/21/18 16:07 01/21/18 16:07 01/21/18 16:07 01/21/18 16:07 01/20/18 20:11 Intake and Output: 01/21/18 01/21/18 06:59 18:59 Intake Total 660 0 Output Total 350 Balance 310 0 - Medications Medications: Current Medications Acetaminophen (Tylenol 325mg Tab) 325 mg PO Q4 PRN PRN Reason: FEVER <100.4 Albuterol/Ipratropium (Duoneb 3 Mg/0.5 Mg (3 Ml) Ud) 3 ml IH Q4 PRN PRN Reason: Shortness of Breath Arformoterol Tartrate (Brovana) 15 mcg IH [id number] [facility] Last Admin: 01/21/18 07:59 Dose: 15 mcg Aspirin (Ecotrin) 81 mg PO DAILY [facility] Last Admin: 01/21/18 10:32 Dose: 81 mg Budesonide (Pulmicort Respules) 0.25 mg IH [id number] [facility] Last Admin: 01/21/18 07:59 Dose: 0.25 mg Diltiazem HCl (Cardizem Cd) 180 mg PO DAILY [facility] Last Admin: 01/21/18 10:32 Dose: 180 mg Hydralazine HCl (Apresoline) 10 mg PO DAILY PRN PRN Reason: Systolic Blood Pressure >170 Meropenem/Sodium Chloride (Merrem Iv 500 Mg/Ns 50 Ml) 500 mg in 50 mls @ 100 mls/hr IVPB 0600,1800 [facility]; Protocol Last Admin: 01/21/18 05:59 Dose: 100 mls/hr Daptomycin 450 mg/ Sodium (Chloride) 100 mls @ 100 mls/hr IV Q48H [facility] Stop: 01/24/18 12:01 Last Admin: 01/21/18 13:07 Dose: 100 mls/hr Isosorbide Mononitrate (Imdur Er) 30 mg PO DAILY [facility] Last Admin: 01/21/18 10:32 Dose: 30 mg Levothyroxine Sodium (Synthroid) 25 mcg PO DAILY [facility] Last Admin: 01/21/18 10:32 Dose: 25 mcg Memantine (Namenda) 10 mg PO DAILY [facility] Last Admin: 01/21/18 10:32 Dose: 10 mg Montelukast Sodium (Singulair) 10 mg PO DAILY [facility] Last Admin: 01/21/18 10:33 Dose: 10 mg Pantoprazole Sodium (Protonix Ec Tab) 20 mg PO DAILY [facility] Last Admin: 01/21/18 10:33 Dose: 20 mg Tamsulosin HCl (Flomax) 0.8 mg PO DAILY [facility] Last Admin: 01/21/18 10:32 Dose: 0.8 mg - Labs Labs: 01/20/18 05:50 01/20/18 05:50 PT 15.2 SECONDS (9.4-12.5) H 01/19/18 02:34 INR 1.33 01/19/18 02:34 APTT 25.9 Seconds (25.1-36.5) 01/19/18 02:34 - Constitutional Appears: Chronically Ill - Head Exam Head Exam: NORMAL INSPECTION - Respiratory Exam Respiratory Exam: Decreased Breath Sounds Additional comments: left anterior chest wall pacemaker in place - Cardiovascular Exam Cardiovascular Exam: +S1, +S2 - GI/Abdominal Exam GI & Abdominal Exam: Soft. absent: Tenderness Assessment and Plan - Assessment and Plan (Free Text) Plan: Assessment severe sepsis due to Methicillin-resistant Staph aureus bacteremia R/O pacemaker infection, on top of ESBL E. coli UTI, in this patient with MRSA bacteremia from 12/30/2017 iron deficiency anemia dyslipidemia COPD CAD S/P CABG with severe ischemic cardiomyopathy S/P pacemaker placement HTN pulmonary HTN Plan continue Daptomycin- follow up repeat blood cx from 01/20 (so far negative) - follow up 2D echo and patient will need ANDRE since MRSA was first isolated 12/30 - initially cleared but now blood cx are positive again - discussed this with Dr. Oseguera and she will inform Dr. Jacobson continue Merrem for UTI will continue to monitor clinically
--- NOTE | 2018-01-22 12:55 | CARD ---
APPROVED REPORT Date of service: 01/22/2018 EXAM: Two-dimensional and M-mode echocardiogram with Doppler and color Doppler. INDICATION R/O VEGETATION 2D DIMENSIONS IVSd1.9 (0.7-1.1cm)LVDd5.7 (3.9-5.9cm) PWd1.6 (0.7-1.1cm)LVDs5.1 (2.5-4.0cm) FS (%) 9.8 %LVEF (%)21.3 (>50%) M-Mode DIMENSIONS Left Atrium (MM)4.90 (2.5-4.0cm)Aortic Root3.70 (2.2-3.7cm) Aortic Cusp Exc.1.90 (1.5-2.0cm) Aortic Valve AoV Peak Uyxifsmc750.0cm/Claudette Peak GR.11mmHg Mitral Valve MV E Ugobcxji249.0cm/sMV A Jtbiwzvy398.0cm/sE/A ratio1.3 TDI Lateral E' Peak V8.48cm/sMedial E' Peak V5.94cm/sE/Lateral E'20.5 E/Medial E'29.3 Tricuspid Valve TR Peak Awnryrcb250jj/sRAP [id number] Peak Gr.65mmHg [id number] LEFT VENTRICLE The Left Ventricle is mildly dilated. There is moderate concentric left ventricular hypertrophy. The systolic function is severely impaired.EF-15-20% There is severe global hypokinesis of the left ventricle. Transmitral Doppler flow pattern is Grade II-pseudonormal filling dynamics. No left ventricle thrombus noted on this study. There is no ventricular septal defect visualized. There is no left ventricular aneurysm. There is no mass noted in the left ventricle. RIGHT VENTRICLE The right ventricle is moderately dilated. The right ventricle is mildly hypertrophied. Systolic function is moderately reduced. There is a pacemaker lead in the right ventricle. ATRIA The left atrium is moderately dilated. The right atrium is moderately dilated. There is a catheter/pacemaker lead seen in the right atrium. The interatrial septum is intact with no evidence for an atrial septal defect. AORTIC VALVE The aortic valve is thickened but opens well. There is trace aortic regurgitation. There is no aortic valvular stenosis. There is no aortic valvular vegetation. MITRAL VALVE The mitral valve is thickened but opens well. Mitral annular calcification is mild to moderate. Mitral regurgitation is trace to mild. There is no mitral valve stenosis. There is no evidence of mitral valve prolapse. TRICUSPID VALVE The tricuspid valve leaflets are thickened , but open well. There is moderate tricuspid regurgitation.RVSP-75 mmof Hg. There is moderate to severe pulmonary hypertension. There is no tricuspid valve stenosis. There is no tricuspid valve prolapse or vegetation. PULMONIC VALVE The pulmonic valve is mildly thickened. There is mild pulmonic valvular regurgitation. There is no pulmonic valvular stenosis. GREAT VESSELS The aortic root is normal in size. The ascending aorta is normal in size. The ascending aorta is normal in size. The pulmonary artery is normal. The IVC is dilated. PERICARDIAL EFFUSION There is large left pleural effusion. There is no pericardial effusion. <Conclusion> Four Chamber Dilatation,. EF-15-25%, C/w CMP. There is trace aortic regurgitation. Mitral regurgitation is trace to mild. There is moderate tricuspid regurgitation.RVSP-75 mmof Hg. There is moderate to severe pulmonary hypertension. The IVC is dilated. There is large left pleural effusion. No Obvious vegetation noted in this study.
--- NOTE | 2018-01-22 16:41 | PCM.URO ---
Urology Progress Note - Objective Lab Studies: Reviewed (AIDE HAYNES) Lab Results Last 24 Hours: Laboratory Results - last 24 hr 01/19/18 01/22/18 01/22/18 10:00 06:00 06:00 WBC 8.3 D RBC 3.17 L Hgb 8.6 L Hct 27.7 L MCV 87.4 MCH 27.1 MCHC 31.0 RDW 18.5 H Plt Count 124 ESR Sodium 144 Potassium 4.2 Chloride 113 H Carbon Dioxide 24 Anion Gap 12 BUN 36 H Creatinine 2.2 H Est GFR ( Amer) 34 Est GFR (Non-Af Amer) 28 Random Glucose 70 Calcium 9.4 Total Bilirubin 0.9 AST 24 ALT 32 Alkaline Phosphatase 115 Total Protein 6.0 Albumin 2.6 L Globulin 3.3 Albumin/Globulin Ratio 0.8 L Crossmatch See Detail 01/22/18 07:00 WBC RBC Hgb Hct MCV MCH MCHC RDW Plt Count ESR 36 H Sodium Potassium Chloride Carbon Dioxide Anion Gap BUN Creatinine Est GFR ( Amer) Est GFR (Non-Af Amer) Random Glucose Calcium Total Bilirubin AST ALT Alkaline Phosphatase Total Protein Albumin Globulin Albumin/Globulin Ratio Crossmatch Intake & Output: Intake & Output 01/21/18 01/22/18 01/22/18 18:59 06:59 18:59 Intake Total 370 475 100 Output Total 1325 1200 Balance -955 -725 100 Weight 160 lb Intake: IV 350 100 Right Upper arm 350 100 Oral 20 100 Blood Product 0 325 Red Blood Cells Cpd As1 0 325 Lr Unit [id number] Other 50 Red Blood Cells Cpd As1 50 Lr Unit [id number] Output: Urine 1325 1200 Urethral (Mann) 1325 1200 Other: # Bowel Movements 0 Vital Signs: Vital Signs - 24 hr 01/21/18 01/21/18 01/21/18 16:50 17:00 17:01 Temperature Pulse Rate 71 73 71 Respiratory 15 17 15 Rate Blood Pressure 131/60 O2 Sat by Pulse 99 99 98 Oximetry 01/21/18 01/21/18 01/21/18 17:08 17:10 17:11 Temperature 97.6 F Pulse Rate 68 71 68 Respiratory 15 16 22 Rate Blood Pressure 115/47 L 122/50 L O2 Sat by Pulse 100 100 Oximetry 01/21/18 01/21/18 01/21/18 17:20 17:29 17:30 Temperature Pulse Rate 75 69 72 Respiratory 17 15 Rate Blood Pressure 136/55 L O2 Sat by Pulse 98 100 Oximetry 01/21/18 01/21/18 01/21/18 17:40 17:50 18:00 Temperature Pulse Rate 80 70 68 Respiratory 18 49 H 19 Rate Blood Pressure 139/65 115/47 L O2 Sat by Pulse 100 100 100 Oximetry 01/21/18 01/21/18 01/21/18 18:10 18:20 18:30 Temperature Pulse Rate 70 68 68 Respiratory 20 23 17 Rate Blood Pressure O2 Sat by Pulse 100 99 100 Oximetry 01/21/18 01/21/18 01/21/18 18:40 18:50 19:00 Temperature Pulse Rate 72 67 87 Respiratory 19 45 H 22 Rate Blood Pressure 145/120 H O2 Sat by Pulse 100 100 98 Oximetry 01/21/18 01/21/18 01/21/18 19:10 19:20 19:30 Temperature Pulse Rate 73 69 68 Respiratory 16 16 16 Rate Blood Pressure O2 Sat by Pulse 100 100 100 Oximetry 01/21/18 01/21/18 01/21/18 19:40 19:50 19:58 Temperature 97.8 F Pulse Rate 75 71 80 Respiratory 18 15 15 Rate Blood Pressure 136/66 O2 Sat by Pulse 100 100 Oximetry 01/21/18 01/21/18 01/21/18 20:00 20:04 22:00 Temperature Pulse Rate 77 75 65 Respiratory 18 19 Rate Blood Pressure 136/65 146/68 O2 Sat by Pulse 100 99 Oximetry 01/22/18 01/22/18 01/22/18 02:00 02:13 02:30 Temperature Pulse Rate 66 65 69 Respiratory 22 Rate Blood Pressure O2 Sat by Pulse 100 Oximetry 01/22/18 01/22/18 01/22/18 02:40 02:50 03:00 Temperature Pulse Rate 65 70 67 Respiratory 18 16 21 Rate Blood Pressure 145/63 O2 Sat by Pulse 100 100 100 Oximetry 01/22/18 01/22/18 01/22/18 03:10 03:20 03:30 Temperature Pulse Rate 64 62 66 Respiratory 18 24 21 Rate Blood Pressure O2 Sat by Pulse 100 100 100 Oximetry 01/22/18 01/22/18 01/22/18 03:40 03:50 04:00 Temperature Pulse Rate 66 63 65 Respiratory 19 18 17 Rate Blood Pressure 133/59 L O2 Sat by Pulse 100 100 100 Oximetry 01/22/18 01/22/18 01/22/18 04:10 04:20 04:30 Temperature Pulse Rate 73 65 67 Respiratory 21 14 Rate Blood Pressure O2 Sat by Pulse 100 100 100 Oximetry 01/22/18 01/22/18 01/22/18 04:40 04:50 05:00 Temperature Pulse Rate 63 67 65 Respiratory 17 17 19 Rate Blood Pressure 135/57 L O2 Sat by Pulse 100 100 100 Oximetry 01/22/18 01/22/18 01/22/18 05:10 05:20 05:30 Temperature Pulse Rate 63 71 67 Respiratory 25 H 24 17 Rate Blood Pressure O2 Sat by Pulse 100 100 99 Oximetry 01/22/18 01/22/18 01/22/18 05:40 05:50 06:00 Temperature Pulse Rate 62 68 65 Respiratory 15 18 16 Rate Blood Pressure 140/54 L O2 Sat by Pulse 100 100 100 Oximetry 01/22/18 01/22/18 01/22/18 06:10 06:20 06:30 Temperature Pulse Rate 78 61 66 Respiratory 26 H 23 16 Rate Blood Pressure O2 Sat by Pulse 100 100 99 Oximetry 01/22/18 01/22/18 01/22/18 06:40 06:50 07:00 Temperature Pulse Rate 72 76 67 Respiratory 16 26 H 16 Rate Blood Pressure 149/60 O2 Sat by Pulse 100 100 99 Oximetry 01/22/18 01/22/18 01/22/18 07:10 07:20 07:30 Temperature Pulse Rate 67 70 72 Respiratory 21 19 19 Rate Blood Pressure O2 Sat by Pulse 100 100 100 Oximetry 01/22/18 01/22/18 01/22/18 07:40 07:50 08:00 Temperature 96.4 F L Pulse Rate 66 65 67 Respiratory 18 14 22 Rate Blood Pressure 145/67 O2 Sat by Pulse 100 100 100 Oximetry 01/22/18 01/22/18 01/22/18 08:10 08:20 08:30 Temperature Pulse Rate 68 75 66 Respiratory 14 15 15 Rate Blood Pressure O2 Sat by Pulse 99 99 99 Oximetry 01/22/18 01/22/18 01/22/18 08:39 09:07 09:40 Temperature Pulse Rate 65 76 65 Respiratory 14 14 Rate Blood Pressure 129/44 L O2 Sat by Pulse 96 96 Oximetry 01/22/18 01/22/18 01/22/18 09:50 10:00 10:05 Temperature Pulse Rate 67 69 73 Respiratory 15 18 Rate Blood Pressure 135/54 L O2 Sat by Pulse 100 100 Oximetry 01/22/18 01/22/18 01/22/18 10:10 10:20 10:30 Temperature Pulse Rate 63 64 66 Respiratory 12 16 17 Rate Blood Pressure O2 Sat by Pulse 96 97 98 Oximetry 01/22/18 01/22/18 01/22/18 10:38 10:40 10:50 Temperature Pulse Rate 64 66 Respiratory 8 L 14 14 Rate Blood Pressure O2 Sat by Pulse 96 99 100 Oximetry 01/22/18 01/22/18 01/22/18 11:00 11:06 11:10 Temperature Pulse Rate 75 77 70 Respiratory 14 13 Rate Blood Pressure 137/46 L 138/51 L O2 Sat by Pulse 99 98 Oximetry 01/22/18 01/22/18 01/22/18 11:20 11:30 11:34 Temperature Pulse Rate 68 68 77 Respiratory 14 15 19 Rate Blood Pressure O2 Sat by Pulse 99 99 99 Oximetry 01/22/18 01/22/18 01/22/18 11:37 11:40 11:47 Temperature Pulse Rate 70 73 75 Respiratory 22 Rate Blood Pressure 138/51 L O2 Sat by Pulse 96 97 97 Oximetry 01/22/18 16:20 Temperature Pulse Rate Respiratory Rate Blood Pressure 139/54 L O2 Sat by Pulse Oximetry
[2018-01-22 18:37] VITALS: TEMP 98.8
--- NOTE | 2018-01-22 20:44 | CON ---
DATE: 01/22/2018 CONSULT SERVICE: Cardiology. REASON FOR CONSULTATION: Cardiac evaluation for possible transesophageal echo to rule out endocarditis, persistent bacteremia, methicillin-resistant Staph aureus on admission, rule out endocarditis, and history of AICD. BRIEF CLINICAL HISTORY: This is an 87-year-old male with past medical history of COPD, congestive heart failure, cardiomyopathy, and dementia [facility] being [facility] with a fever of 103. Patient grew Staph aureus positive. Patient currently has a two-point positive restraints and very aggressive behavior pulling the line and also in respiratory distress. PAST MEDICAL HISTORY: Significant for COPD, dementia, renal failure, history of blood transfusion. Patient was seen in the last admission who has had multiple blood transfusion, given 5 units and at that time also concern was ANDRE, but because of the overall patient's condition, it was not proceeded and it was decided to be treated medically because of the concern that patient is not cooperative and it caused perforation. Patient again has dementia, unable to give any history. Information obtained from the electronic medical record. History of apparently coronary artery disease, history of CHF, history of AICD in the past, history of CABG, history of massive GI bleed, on last admission I gave 5 units of blood because patient keep on having GI, blood loss. History of gastritis, history of hyperlipidemia, history of cardiomyopathy. SOCIAL HISTORY: The previous chart mentioned patient was a smoker at that time. Denies history of alcohol abuse. ALLERGIES: NICODERM. CURRENT MEDICATIONS: Patient is on hydralazine, Cardizem. At home, patient was on levothyroxine, Lasix, and isosorbide . REVIEW OF SYSTEMS: As per HPI. PHYSICAL EXAMINATION: VITAL SIGNS: As follows; temperature afebrile, heart rate 77, and blood pressure . HEENT: PERRLA. Extraocular muscles intact. NECK: Supple. No carotid bruit or thyromegaly CHEST: Clear to auscultation. HEART: S1 and S2 regular. ABDOMEN: Soft. EXTREMITIES: Clubbing, cyanosis negative. LABORATORY DATA: Blood workup as follows: WBC 8.3, hemoglobin 8.6, hematocrit 27.7, and platelet count 124,000. Chemistry shows sodium 144, potassium 4, chloride 101, 24, anion gap 12, BUN 36, and creatinine 2.2. IMPRESSION AND PLAN: An 87-year-old male [facility] was transferred because of 103 fever. Patient's last echocardiogram was done 11/09/2013 revealed moderately dilated ventricle, severe concentric left ventricular hypertrophy, systolic function severely impaired, akinetic inferior wall, right ventricular systolic pressure 24, admitted with sepsis, Gram-positive Staphylococcus aureus. Last admission, patient had multiple gastrointestinal and genitourinary, bleed requiring 5 units of blood was given. Currently, patient's mental status is unchanged, is on two-point soft restraint and very belligerent and respiratory distress, not in position to do a transesophageal echocardiogram because of high risk of complication including perforation and respiratory distress. So, we will suggest to treat patient aggressively as patient has endocarditis. Agree to repeat echocardiogram, agree to repeat blood culture, repeat sed rate, and we will follow with you. If the patient's mentation improved or patient will be more cooperative or sober or patient becomes more cooperative, then we will consider transesophageal echocardiogram, for now treat medically. We will follow the ESR and follow the trend. We will get a stat sed rate and we will repeat in a week. Thank you Dr. Rivas for providing us the opportunity in taking care of patient, Faraz Zuñiga. Radha Woodward MD cc: Irasema Rivas MD
[2018-01-23] MEDS: MEROPENEM 500 MG in NS 500 MG/50 ML BAG IVPB SCH (05:34)
[2018-01-23 07:10] LABS: HEMOGLOBIN 8.8 g/dL (14.0-18.0); MEAN CELL VOLUME 87.8 fl (80.0-105.0); MEAN CORPUSCULAR HEMOGLOBIN 27.5 pg (25.0-35.0); MEAN CORPUSCULAR HGB CONC 31.3 g/dl (31.0-37.0); MEAN PLATELET VOLUME 11.1 fl (7.0-11.0); RBC 3.2 10^6/uL (3.5-6.1); RED CELL DISTRIBUTION WIDTH 18.4 % (11.5-14.5); WHITE BLOOD COUNT 5.9 10^3/uL (4.5-11.0)
[2018-01-23 07:32] LABS: ALB/GLOB RATIO 0.8 (1.1-1.8); ALBUMIN 2.6 g/dL (3.0-4.8); CALCIUM 9.4 mg/dL (8.4-10.5)
[2018-01-23] MEDS: Budesonide 0.25 mg/2 ml Inhal Susp UD IH SCH (08:09)
[2018-01-23] MEDS: Arformoterol 15 mcg/2 ml Inh Sol IH SCH (08:09)
[2018-01-23 08:25] VITALS: O2SAT 100
--- NOTE | 2018-01-23 08:28 | PN ---
DATE: 01/22/2018 SUBJECTIVE: The patient was seen and examined at the bedside on 01/22/2018. No fever. No chills. No nausea. No vomiting or diarrhea. No hematuria or hematochezia. No swelling of legs. No headache, no dizziness. PHYSICAL EXAMINATION: VITAL SIGNS: Temperature 97.6, pulse 71, respiratory rate 18, blood pressure 130/65, pulse oximetry 99%. HEENT: Head; normocephalic, atraumatic. Eyes; PERRLA. Extraocular muscles intact. Conjunctivae clear. Nose patent. NECK: Supple. No carotid bruit. No JVD or thyromegaly. CHEST: Bilaterally symmetrical. HEART: S1 and S2 positive. LUNGS: Clear to auscultation. ABDOMEN: Soft. Bowel sounds present. No organomegaly. EXTREMITIES: No edema. No cyanosis. NEUROLOGIC: The patient is awake and alert, moving all four extremities. No focal deficits. MEDICATIONS: DuoNeb, Brovana, Ecotrin, Cardizem CD twice a day one in the morning and one time at night, , Synthroid, Namenda, Singulair, Protonix. LABORATORY DATA: White blood cells 2.1, hemoglobin 8.2, hematocrit , platelets 146,000. Chloride 111 , BUN 32, creatinine 0.6. ASSESSMENT AND PLAN: Mr. Faraz Zuñiga is an 87 years old male with leukocytosis, anemia, placed to the other place, hyperglycemia, thrombocytopenia, renal insufficiency, hyperchloremia, history of pacemaker, hypertension, coronary artery disease, coronary artery bypass graft with severe heart attack, pulmonary hypertension. Gastrointestinal and deep vein thrombosis prophylaxes. Repeat labs. We will follow up. Irasema Rivas MD
--- NOTE | 2018-01-23 09:02 | RAD ---
Date of service: 01/22/2018 HISTORY: PICC line tip positioning COMPARISON: No prior. FINDINGS: LUNGS: Pulmonary edema slightly improved on the left unchanged on the right PLEURA: No significant pleural effusion identified, no pneumothorax apparent. CARDIOVASCULAR: Aortic calcification Moderate cardiomegaly OSSEOUS STRUCTURES: No significant abnormalities. VISUALIZED UPPER ABDOMEN: Normal. OTHER FINDINGS: None. IMPRESSION: Pulmonary edema slightly improved on the left unchanged on the right
[2018-01-23] MEDS: diltiaZEM 180 mg/24 Hours CD Cap PO SCH (10:10)
[2018-01-23] MEDS: Pantoprazole 20 mg EC Tab PO SCH (10:10)
[2018-01-23] MEDS: Levothyroxine 25 MCG TAB PO SCH (10:11)
--- NOTE | 2018-01-23 12:00 | CP.PCM.PN ---
Subjective - Date & Time of Evaluation Date of Evaluation: 01/23/18 Time of Evaluation: 09:05 - Subjective Subjective: Afebrile, a little more awake today, no chest pain, no nausea, no diarrhea. Objective - Vital Signs/Intake and Output Vital Signs (last 24 hours): Temp Pulse Resp BP Pulse Ox 96.4 F L 81 22 138/51 L 98 01/22/18 08:00 01/22/18 11:47 01/22/18 11:47 01/22/18 11:47 01/22/18 11:47 Intake and Output: 01/22/18 01/22/18 06:59 18:59 Intake Total 475 100 Output Total 1200 Balance -725 100 - Medications Medications: Current Medications Acetaminophen (Tylenol 325mg Tab) 325 mg PO Q4 PRN PRN Reason: FEVER <100.4 Albuterol/Ipratropium (Duoneb 3 Mg/0.5 Mg (3 Ml) Ud) 3 ml IH Q4 PRN PRN Reason: Shortness of Breath Last Admin: 01/22/18 07:46 Dose: 3 ml Arformoterol Tartrate (Brovana) 15 mcg IH [id number] [facility] Last Admin: 01/22/18 07:46 Dose: 15 mcg Aspirin (Ecotrin) 81 mg PO DAILY [facility] Last Admin: 01/22/18 11:07 Dose: 81 mg Budesonide (Pulmicort Respules) 0.25 mg IH [id number] [facility] Last Admin: 01/22/18 07:47 Dose: 0.25 mg Diltiazem HCl (Cardizem Cd) 180 mg PO DAILY [facility] Last Admin: 01/22/18 11:06 Dose: 180 mg Hydralazine HCl (Apresoline) 10 mg PO DAILY PRN PRN Reason: Systolic Blood Pressure >170 Last Admin: 01/22/18 11:06 Dose: 10 mg Meropenem/Sodium Chloride (Merrem Iv 500 Mg/Ns 50 Ml) 500 mg in 50 mls @ 100 mls/hr IVPB 0600,1800 [facility]; Protocol Last Admin: 01/22/18 05:22 Dose: 100 mls/hr Daptomycin 450 mg/ Sodium (Chloride) 100 mls @ 100 mls/hr IV Q48H [facility] Stop: 01/24/18 12:01 Last Admin: 01/21/18 13:07 Dose: 100 mls/hr Isosorbide Mononitrate (Imdur Er) 30 mg PO DAILY [facility] Last Admin: 01/22/18 11:06 Dose: 30 mg Levothyroxine Sodium (Synthroid) 25 mcg PO DAILY [facility] Last Admin: 01/22/18 11:06 Dose: 25 mcg Memantine (Namenda) 10 mg PO DAILY [facility] Last Admin: 01/22/18 11:07 Dose: 10 mg Montelukast Sodium (Singulair) 10 mg PO DAILY [facility] Last Admin: 01/22/18 11:06 Dose: 10 mg Pantoprazole Sodium (Protonix Ec Tab) 20 mg PO DAILY [facility] Last Admin: 01/22/18 11:07 Dose: 20 mg Tamsulosin HCl (Flomax) 0.8 mg PO DAILY [facility] Last Admin: 01/22/18 11:05 Dose: 0.8 mg - Labs Labs: 01/22/18 06:00 01/22/18 06:00 PT 15.2 SECONDS (9.4-12.5) H 01/19/18 02:34 INR 1.33 01/19/18 02:34 APTT 25.9 Seconds (25.1-36.5) 01/19/18 02:34 - Constitutional Appears: Chronically Ill - Head Exam Head Exam: NORMAL INSPECTION - Respiratory Exam Respiratory Exam: Decreased Breath Sounds - Cardiovascular Exam Cardiovascular Exam: +S1, +S2 - GI/Abdominal Exam GI & Abdominal Exam: Soft. absent: Tenderness Assessment and Plan - Assessment and Plan (Free Text) Plan: Assessment severe sepsis due to Methicillin-resistant Staph aureus bacteremia R/O pacemaker infection, on top of ESBL E. coli UTI, in this patient with MRSA bacteremia from 12/30/2017 iron deficiency anemia dyslipidemia COPD CAD S/P CABG with severe ischemic cardiomyopathy S/P pacemaker placement HTN pulmonary HTN Plan continue Daptomycin - follow up repeat blood cx from 01/20 (so far negative) - 2D echo still does not show vegetations, would recommend ANDRE since MRSA was first isolated 12/30 - discussed this with Dr. Oseguera - as per Cardio, would defer ANDRE for now - would recommend at least weeks of antibiotics with weekly ESR, CRP, CBC, CMP, CPK while on Daptomycin and should dose adjust Daptomycin according to kidney function - should get blood cx 3-4 days after Daptomycin is discontinued to see if the bacteremia recurs continue Merrem for UTI (day 4 of 7-10 days) will continue to monitor clinically
--- NOTE | 2018-01-23 16:00 | PN ---
DATE: 01/23/2018 REASON FOR THE CONSULTATION: For cardiac evaluation, possible transesophageal echo to rule out endocarditis, persistent bacteremia, methicillin-resistant staph aureus, history of AICD, history of coronary artery disease. SUBJECTIVE: The patient is confused, on 2-point [place] restraint. PHYSICAL EXAMINATION: VITAL SIGNS: Temperature afebrile, heart rate 64, blood pressure 130/80. HEENT: PERRLA. Extraocular muscles intact. NECK: Supple. No carotid bruit or thyromegaly. CHEST: Clear to auscultation. HEART: S1 and S2, regular. ABDOMEN: Soft. EXTREMITIES: Clubbing and cyanosis negative. LABORATORY DATA: WBC 5.9, hemoglobin 8.8, hematocrit 28, platelet count 141. Chemistry shows sodium 143, potassium 4.2, chloride 113, carbon dioxide 26, anion gap of 9, BUN 36, creatinine 2.1. Sed rate repeated 36. Repeat blood cultures are negative at 48 hours. Echo was done yesterday, did not show any evidence of endocarditis, though specificity and sensitivity for regular echo is not as great as ANDRE and the patient has AICD. IMPRESSION: An 87-year-old male with past medical history significant for cardiomyopathy, coronary artery disease, admitted with gram-positive sepsis. Cardiology consult was called for the transesophageal echocardiography. The patient had cardiomyopathy, severely decreased left ventricular function by echo, ejection fraction 15%-20% with pulmonary hypertension, though echo did not show any evidence of endocarditis, repeat blood cultures are negative, but it does not mean that the patient does not have not as good as transesophageal echocardiography, but overall the patient's condition is not a candidate for transesophageal echocardiography because the patient has 2-point restraints and difficulty in swallowing, high risk for perforation, so we will suggest to treat as endocarditis with 4 weeks of antibiotics, followup, monitor, repeat blood culture, monitor sed rate, continue gentle diuretics, aggressive medical treatment. The patient will get the benefit from gentle diuretics. Chest x-ray yesterday shows possible right lower lobe pneumonia as well. Continue antibiotics. We will put 40 of Lasix everyday. We will sign off and glad to follow p.r.n. Again, the patient is not a candidate at this point for transesophageal echocardiography, high risk for perforation. The patient is not going to cooperate. So, we will sign off and glad to follow p.r.n. The patient has a renal insufficiency and [id number] congestive heart failure. On examination, cardiomyopathy, will get the benefit of Lasix, we will put the standard dose of Lasix. Also, please seriously consider DNR/DNI because the patient's overall condition is critical and long-term prognosis is extremely poor. We will sign off and glad to follow p.r.n. Thank you, Dr. Rivas, for providing us the opportunity in taking care of the patient, Faraz Kaurean. Radha Woodward MD
[2018-01-23 17:37] VITALS: BP 145/64; PULSE 95; RESP 30
[2018-01-23] MEDS ORDERED: MEROPENEM 500 MG in NS 500 MG/50 ML BAG IVPB SCH (18:00)
--- NOTE | 2018-01-24 06:24 | PQF ---
PROVIDER RESPONSE TEXT: jail patient with indwelling sol catheter admitted for severe sepsis secondary to complicat ed UTI. Sol was changed in ER but infection possibly related to sol. REVIEWER QUERY TEXT: Clarification of Clinical Diagnostic Findings Please clarify documentation or clinical relevance for the clinical / diagnostic findings or whether those are insignificant or unable to be further specified. The patient's Clinical Indicators include: Your documentation on 01/19/18 noted that patient had "severe sepsis attributed to [facility] UTI in a [facility]". Patient has chronic indwelling sol catheter. Please define/explain "complicated UTI". Are you referring to infection due to catheter, other type o f UTI? Query created by: Eleanor Uribe on 01/21/2018 9:25 AM Electronically signed by: Diego Garcia ST 01/24/2018 6:21 AM
== END 2018-01-23 19:00 | DRG 871 ==
LOC: ED 01:56 → ERH 03:28 → CCU 06:44
PROVIDERS: ADMIT Internal Medicine; ATTEND Internal Medicine
DX: A41.02 Sepsis due to Methicillin resistant Staphylococcus aureus (principal); J18.9 Pneumonia, unspecified organism; T83.518A Infection and inflammatory reaction due to other urinary catheter, initial encounter; N39.0 Urinary tract infection, site not specified; I13.0 Hypertensive heart and chronic kidney disease with heart failure and stage 1 through stage 4 chronic kidney disease, or unspecified chronic kidney disease; N18.4 Chronic kidney disease, stage 4 (severe); J44.0 Chronic obstructive pulmonary disease with (acute) lower respiratory infection; I50.32 Chronic diastolic (congestive) heart failure; I38 Endocarditis, valve unspecified; R65.20 Severe sepsis without septic shock; I25.10 Atherosclerotic heart disease of native coronary artery without angina pectoris; D50.9 Iron deficiency anemia, unspecified; R31.9 Hematuria, unspecified; N40.0 Benign prostatic hyperplasia without lower urinary tract symptoms; K80.20 Calculus of gallbladder without cholecystitis without obstruction; E86.0 Dehydration; F03.90 Unspecified dementia, unspecified severity, without behavioral disturbance, psychotic disturbance, mood disturbance, and anxiety; E83.42 Hypomagnesemia; Z95.0 Presence of cardiac pacemaker; Z87.891 Personal history of nicotine dependence; I48.91 Unspecified atrial fibrillation; I25.5 Ischemic cardiomyopathy; I27.20 Pulmonary hypertension, unspecified; D69.6 Thrombocytopenia, unspecified; E78.5 Hyperlipidemia, unspecified; E83.39 Other disorders of phosphorus metabolism; E87.8 Other disorders of electrolyte and fluid balance, not elsewhere classified; I25.2 Old myocardial infarction; K29.70 Gastritis, unspecified, without bleeding; K59.00 Constipation, unspecified; K82.8 Other specified diseases of gallbladder; Y95 Nosocomial condition; Z79.82 Long term (current) use of aspirin; Z95.1 Presence of aortocoronary bypass graft; Z95.5 Presence of coronary angioplasty implant and graft; Z95.810 Presence of automatic (implantable) cardiac defibrillator

== ENCOUNTER 2018-02-19 16:31 | Inpatient (IN) | payer MEDICARE, OTHER ==
[2018-02-19 16:32] VITALS: BMI 25.8
--- NOTE | 2018-02-19 17:55 | ED PDOC ---
Arrival/HPI - General Chief Complaint: Altered Mental Status Time Seen by Provider: 02/19/18 16:51 Historian: Patient, Long-Term - History of Present Illness Narrative History of Present Illness (Text): 02/19/18 17:08 87 year old male, with past medical history of CHF, GI bleed, anemia, chronic renal failure, and sepsis, presents to the Emergency department from [facility] [place], [place], for evaluation of chest pain, mild lethargy and shortness of breath prior to arrival. As per long-term documentation, patient reportedly expressed A[facility] and [facility]argy [facility] earlier this [facility]. Pt is baseline AOx2. However, on evaluation by Dr. Rivas, patient was not noted to have lethargy or AMS; Patient expressed chest pain and shortness of breath to Dr. Rivas, who subsequently referred patient to the ED for medical evaluation. Upon arrival to the ED, patient expresses shortness of breath associated with very mild chest pain, which started today. Patient denies any other associated somatic complaints. Patient denies any orthopnea, PND, Stiff neck, dark or bloody stool, Rash, fevers, chills, headache, dizziness, cough, abdominal pain, nausea, vomiting, diarrhea, back pain, neck pain, or any other complaints. PMD: Dr. Rivas Time/Duration: Prior to Arrival Symptom Onset: Gradual Symptom Course: Unchanged Activities at Onset: Light Context: Other (Referred by Dr. Rivas) Past Medical History - Provider Review Nursing Documentation Reviewed: Yes - Infectious Disease Hx of Infectious Diseases: None - Cardiac Hx Cardiac Disorders: Yes (CABG, coronary stents, A fib,) Hx Congestive Heart Failure: Yes - Pulmonary Hx Chronic Obstructive Pulmonary Disease (COPD): Yes - Neurological Hx Neurological Disorder: Yes Hx Dementia: Yes - HEENT Hx HEENT Disorder: Yes Hx Difficulty Chewing: Yes - Renal Hx Renal Disorder: Yes Hx Dialysis: No Hx Renal Failure: Yes - Endocrine/Metabolic Hx Endocrine Disorders: No - Hematological/Oncological Hx Blood Disorders: Yes Hx Anemia: Yes (has had transfusions) Other/Comment: hx of staph bacteremia - Integumentary Hx Dermatological Disorder: No - Musculoskeletal/Rheumatological Hx Falls: Yes Hx Unsteady Gait: Yes - Gastrointestinal Hx Gastrointestinal Disorders: Yes HX Swallowing Problems: Yes Other/Comment: egd 2018 gastritis - Genitourinary/Gynecological Hx Genitourinary Disorders: Yes Hx Hematuria: Yes Other/Comment: sol catheter for retention/pulled out several times by pt - Psychiatric Hx Psychophysiologic Disorder: No Hx Substance Use: No - Surgical History Hx Cardiac Catheterization: Yes Hx Open Heart Surgery: Yes (CABG) - Anesthesia Hx Anesthesia Reactions: No Hx Malignant Hyperthermia: No - Suicidal Assessment Feels Threatened In Home Enviroment: No Family/Social History - Physician Review Nursing Documentation Reviewed: Yes Family/Social History: Unknown Family HX Smoking Status: Current Some Days Smoker Hx Alcohol Use: No Hx Substance Use: No Allergies/Home Meds Allergies/Adverse Reactions: Allergies No Known Allergies Allergy (Verified 04/11/17 19:07) Home Medications: Home Meds Medication Instructions Recorded Confirmed Acetaminophen [Tylenol 325mg tab] 325 mg PO Q4 PRN MDD 3G 01/19/18 01/19/18 Furosemide [Lasix] 40 mg PO DAILY 01/19/18 01/19/18 Review of Systems - Physician Review All systems were reviewed & negative as marked: Yes - Review of Systems Constitutional: absent: Fevers Eyes: absent: Vision Changes ENT: absent: Hearing Changes Respiratory: SOB. absent: Cough Cardiovascular: Chest Pain ((very mild)). absent: KU Gastrointestinal: absent: Abdominal Pain, Diarrhea, Nausea, Vomiting Genitourinary Male: absent: Dysuria, Urinary Output Changes Musculoskeletal: absent: Back Pain, Neck Pain Skin: absent: Rash, Pruritis, Skin Lesions Neurological: absent: Headache, Dizziness Psychiatric: absent: Anxiety, Depression Physical Exam Vital Signs Reviewed: Yes Vital Signs Temp Pulse Resp BP Pulse Ox 02/19/18 17:25 98.9 F 100 H 18 101/58 L 92 L Temperature: Afebrile Blood Pressure: Normal Pulse: Tachycardic Respiratory Rate: Normal Appearance: Positive for: Well-Appearing, Non-Toxic, Comfortable Pain Distress: None Mental Status: Positive for: other (aox2) - Systems Exam Head: Present: Atraumatic, Normocephalic Pupils: Present: PERRL Extroacular Muscles: Present: EOMI Conjunctiva: Present: Normal Mouth: Present: Moist Mucous Membranes Neck: Present: Normal Range of Motion. No: Meningeal Signs Respiratory/Chest: Present: Clear to Auscultation, Good Air Exchange. No: Respiratory Distress, Accessory Muscle Use Cardiovascular: Present: Regular Rate and Rhythm, Normal S1, S2. No: Murmurs Abdomen: No: Tenderness, Distention, Peritoneal Signs Back: Present: Normal Inspection. No: CVA Tenderness Upper Extremity: Present: Normal Inspection. No: Cyanosis, Edema Lower Extremity: No: Edema, CALF TENDERNESS Neurological: Present: CN II-XII Intact, Speech Normal, Motor Func Grossly Intact (GCS 14), Other (GCS ) Skin: Present: Warm, Dry, Normal Color. No: Rashes Psychiatric: Present: Alert. No: Oriented x 3 (AOx2) Medical Decision Making ED Course and Treatment: 02/19/18 17:08 Impression: 87 year old male presents to the Emergency department complaining for evaluation of shortness of breath. Pt noted to be ?AMS this morning 6+ hours prior to eval. Pt was also noted to be AMS similar to previous UTI w/ concern for recurrent urosepsis. Noted to be AOx2, MAEW without slurred speech. Given hx of sepsis will seek sepsis w/u. Will also seek chest pain w/u. Plan: -- Labs -- VBG -- CT of Head -- Chest X-ray -- Blood Culture -- Urinalysis -- Reassess and disposition Prior Visits: Notes and results from previous visits were reviewed. Progress Notes: EKG: Ordered, reviewed, and independently interpreted the EKG. Rate : 102 BPM Rhythm : Sinus Tachycardia Interpretation : RBBB with PACS, no STEMI 02/19/18 ~1730 Code sepsis alled given elevated temp and HR. Pressure stable. 02/19/18 ~1830 UTI negative Xray negative for pna Lactic 1.5, WBC 15. ?Viral infection Will seek flu swab, throat swab Will seek CT non con CAP. Cr elevated Cr elevated. trop elevated: ?NSTEMI vs worsening creat? ASA ordered. Discussed case with Dr. Rivas, who is aware and agrees with ED management plan, agrees patient admission under her service pending imaging. No heparin at this time. 02/19/[address] Sanchez Pending CTs and further dispo. - RAD Interpretation Radiology Orders: 02/19/18 17:08 HEAD W/O CONTRAST [CT] Stat CHEST PORTABLE [RAD] Stat - EKG Interpretation Interpreted by ED Physician: Yes Type: 12 lead EKG - Scribe Statement The provider has reviewed the documentation as recorded by the Scribe Lyndsey Langford. All medical record entries made by the Jarredibjeffy were at my direction and personally dictated by me. I have reviewed the chart and agree that the record accurately reflects my personal performance of the history, physical exam, medical decision making, and the department course for this patient. I have also personally directed, reviewed, and agree with the discharge instructions and disposition. Disposition/Present on Arrival - Present on Arrival Any Indicators Present on Arrival: No History of DVT/PE: No History of Uncontrolled Diabetes: No Urinary Catheter: Yes History of Decub. Ulcer: No History Surgical Site Infection Following: None - Disposition Have Diagnosis and Disposition been Completed?: Yes Diagnosis: Sepsis Disposition Time: 19:00 Patient Problems: Current Active Problems Problem Status Onset Sepsis Acute Condition: FAIR Discharge Instructions (ExitCare): Sepsis (ED) Referrals: Irasema Rivas MD [Primary Care Provider] - Follow up with primary Forms: [employer] (Hungarian)
[2018-02-19 18:10] LABS: VENOUS BLOOD GAS PO2 113 mm/Hg (30-55); VENOUS BLOOD PH 7.38 (7.32-7.43)
[2018-02-19] MEDS ORDERED: Piperacillin/Tazobact 3.375 gm 100 ML IVPB STA (18:12)
[2018-02-19] MEDS ORDERED: Vancomycin 1gm in NS 250ml 1 GM/250 ML BAG IVPB STA (18:12)
--- NOTE | 2018-02-19 18:13 | RAD ---
Date of service: 02/19/2018 HISTORY: CHEST PAIN COMPARISON: 01/22/2018 FINDINGS: LUNGS: Improving pulmonary edema. PLEURA: No significant pleural effusion identified, no pneumothorax apparent. CARDIOVASCULAR: Cardiomegaly. Improving cardiogenic pulmonary edema. Position/ configuration of pacemaker The tip of the PICC line is now in the right axillary vein. Larry remarked Atherosclerotic calcifications identified primarily aortic arch. OSSEOUS STRUCTURES: No significant abnormalities. VISUALIZED UPPER ABDOMEN: Normal. OTHER FINDINGS: None. IMPRESSION: Improving pulmonary edema. PICC line tip now resides in the right axillary vein.
[2018-02-19 18:14] LABS: BASO # 0.03 K/mm3 (0.0-2.0); BASO % 0.2 % (0.0-3.0); GRAN # 14.22 (1.4-6.5); GRAN % 92.1 % (50.0-68.0); HEMOGLOBIN 8.1 g/dL (14.0-18.0); LYMPH # 0.5 (1.2-3.4); LYMPH % 3.5 % (22.0-35.0); MEAN CELL VOLUME 85.2 fl (80.0-105.0); MEAN CORPUSCULAR HEMOGLOBIN 26.6 pg (25.0-35.0); MEAN CORPUSCULAR HGB CONC 31.2 g/dl (31.0-37.0); MONO # 0.7 (0.1-0.6); MONO % 4.2 % (1.0-6.0); PLATELET COUNT 97 10^3/uL (120.0-450.0); RBC 3.05 10^6/uL (3.5-6.1); RED CELL DISTRIBUTION WIDTH 17.6 % (11.5-14.5); WHITE BLOOD COUNT 15.4 10^3/uL (4.5-11.0)
[2018-02-19 18:18] LABS: INR 1.45; PROTHROMBIN TIME 16.6 SECONDS (9.4-12.5)
[2018-02-19 18:25] LABS: ALB/GLOB RATIO 0.8 (1.1-1.8)
[2018-02-19 18:32] LABS: URINE BILIRUBIN SMALL (NEGATIVE); URINE BLOOD MODERATE (NEGATIVE); URINE GLUCOSE (UA) NEGATIVE (NEGATIVE); URINE LEUKOCYTE ESTERASE SMALL Leu/uL (NEGATIVE); URINE PROTEIN 30 mg/dL (<30 mg/dL); URINE UROBILINOGEN 0.2 E.U./dL (<1 E.U./dL)
[2018-02-19 18:33] LABS: URINE APPEARANCE SLIGHT-CLOUDY (CLEAR); URINE COLOR DARK YELLOW (YELLOW)
[2018-02-19 18:38] LABS: URINE BACTERIA TRACE (NEG)
--- NOTE | 2018-02-19 18:39 | CARD ---
APPROVED REPORT Date of service: 02/19/2018 EKG Measurement Heart [id number] KS 192P [id number] <Conclusion> Sinus tachycardia with occasional premature ventricular complexes Left axis deviation Right bundle branch block Left ventricular hypertrophy with repolarization abnormality Abnormal ECG
[2018-02-19 18:41] LABS: ANISOCYTOSIS 1+; BAND 2 % (0-2); EOSINOPHIL 1 % (0.0-3.0); LYMPHOCYTE 7 % (22.0-35.0); MONOCYTE 3 % (1.0-6.0); NEUTROPHIL 87 % (50.0-70.0)
[2018-02-19 18:42] LABS: HYPOCHROMIA SLIGHT
[2018-02-19 18:43] LABS: LARGE PLATELETS PRESENT; PLATELET ESTIMATE NORMAL (NORMAL)
[2018-02-19 18:54] LABS: TROPONIN I 0.29 ng/mL
--- NOTE | 2018-02-19 21:58 | ED PDOC ---
Physical Exam Vital Signs Temp Pulse Resp BP Pulse Ox 02/19/18 19:48 98.7 F 86 17 104/58 L 99 02/19/18 19:25 98.7 F 02/19/18 18:30 96 H 17 113/58 L 100 02/19/18 18:25 102.2 F H 02/19/18 17:25 98.9 F 100 H 18 101/58 L 92 L Medical Decision Making ED Course and Treatment: 02/19/18 21:[address] scan which consistent with pneumonia case d/w dr pleitez pt will go to telemetry - Lab Interpretations Lab Results: 02/19/18 18:04 02/19/18 18:04 Lab Results 02/19/18 18:20: Urine Color Dark yellow, Urine Appearance Slight-cloudy, Urine pH 6.0, Ur Specific [place] 1.025, Urine Protein 30 H, Urine Glucose (UA) Negative, Urine Ketones Negative, Urine Blood Moderate H, Urine Nitrate Negative, Urine Bilirubin Small H, Urine Urobilinogen 0.2, Ur Leukocyte Esterase Small H, Urine RBC 1 - 3, Urine WBC 1 - 3, Ur Epithelial Cells 1 - 3, Urine Bacteria Trace 02/19/18 18:04: Blood Type O POSITIVE, Antibody Screen Negative, BBK History Checked Patient has bt 02/19/18 18:04: PT 16.6 H, INR 1.45, APTT 25.0 L 02/19/18 18:04: Sodium 141, Chloride 106, Potassium 4.2, Carbon Dioxide 27, Anion Gap 12, BUN 41 H, Creatinine 3.4 H, Est GFR ( Amer) 21, Est GFR (Non-Af Amer) 17, Random Glucose 124 H, Calcium 10.0, Magnesium 2.2, Total Bilirubin 0.8, AST 23, ALT 22, Alkaline Phosphatase 105, Troponin I 0.29 H* D, Total Protein 6.9, Albumin 3.0, Globulin 3.9, Albumin/Globulin Ratio 0.8 L 02/19/18 18:04: pO2 113 H, VBG pH 7.38, VBG pCO2 49.0, VBG HCO3 29.0 H, VBG To olga CO2 30.5 H, VBG O2 Sat (Calc) 99.7 H, VBG Base Excess 3.0 H, VBG Potassium 4.1, Sodium 141.0, Chloride 106.0, Glucose 127 H, Lactate 1.5, FiO2 21.0, Venous Blood Potassium 4.1 02/19/18 18:04: WBC 15.4 H D, RBC 3.05 L, Hgb 8.1 L, Hct 26.0 L, MCV 85.2, MCH 26.6, MCHC 31.2, RDW 17.6 H, Plt Count 97 L, Gran % 92.1 H, Lymph % (Auto) 3.5 L , [place] % (Auto) 4.2, Eos % (Auto) 0.0 L, Baso % (Auto) 0.2, Gran # 14.22 H, Lymph # (Auto) 0.5 L, [place] # (Auto) 0.7 H, Eos # (Auto) 0.0, Baso # (Auto) 0.03, Neutrophils % (Manual) 87 H, Band Neutrophils % 2, Lymphocytes % (Manual) 7 L, Monocytes % (Manual) 3, Eosinophils % (Manual) 1, Platelet Evaluation Normal, Large Platelets Present, Hypochromasia Slight, Anisocytosis (manual) 1+ - RAD Interpretation Radiology Orders: 02/19/18 17:08 HEAD W/O CONTRAST [CT] Stat CHEST PORTABLE [RAD] Stat 02/19/18 18:55 CHEST,ABDOMEN, PELVIS W/O CONT [CT] Stat - Medication Orders Current Medication Orders: Discontinued Medications Aspirin (Aspirin Supp) 300 mg RC STAT STA Stop: 02/19/18 18:57 Last Admin: 02/19/18 19:39 Dose: 300 mg Vancomycin HCl (Vancomycin 1gm) 1 gm in 250 mls @ 167 mls/hr IVPB STAT STA; Protocol Stop: 02/19/18 19:41 Last Admin: 02/19/18 19:39 Dose: 167 mls/hr eMAR Start Stop Document 02/19/18 19:39 KV (Rec: 02/19/18 19:40 [place] [facility] [id number] Intravenous Solution Start Date 02/19/18 Start Time 19:40 Piperacillin Sod/Tazobactam Sod (Zosyn 3.375 In Ns 100ml) 100 mls @ 200 mls/hr IVPB STAT STA; Protocol Stop: 02/19/18 18:41 Last Admin: 02/19/18 18:33 Dose: 200 mls/hr eMAR Start Stop Document 02/19/18 18:33 KV (Rec: 02/19/18 18:33 KV [id number]) Intravenous Solution Start Date 02/19/18 Start Time 18:33 Disposition/Present on Arrival - Present on Arrival Any Indicators Present on Arrival: No History of DVT/PE: No History of Uncontrolled Diabetes: No Urinary Catheter: Yes History of Decub. Ulcer: No History Surgical Site Infection Following: None - Disposition Have Diagnosis and Disposition been Completed?: Yes Diagnosis: Sepsis, Pneumonia Disposition: HOSPITALIZED Disposition Time: 21:30 Patient Problems: Current Active Problems Problem Status Onset Sepsis Acute Condition: FAIR
[2018-02-19 22:25] LABS: INFLUENZA A B NEGATIVE FOR FLU A/B (NEGATIVE)
[2018-02-19] MEDS ORDERED: Albuterol-Ipratrop 3 mg / 0.5 (3 ml) UD IH PRN (23:03)
--- NOTE | 2018-02-19 23:24 | PCM.SEPTIC ---
Sepsis Progress Note - Reassessment Type Date of Evaluation: 02/19/18 Time of Evaluation: 23:23 Reassessment Type: Non-invasive reassessment - Non Invasive Reassessment Were the most recent vital sign reviewed: Yes Vital Sign (Latest): Temp Pulse Resp BP Pulse Ox 98.7 F 77 18 109/66 99 02/19/18 22:09 02/19/18 22:09 02/19/18 22:09 02/19/18 22:09 02/19/18 22:09 Cardiovascular: Yes: Regular Rate, Rhythm Respiratory: Yes: Normal Breath Sounds. No: Accessory Muscle Use, Respiratory Distress Capillary Refill: Normal (Less than 2 sec) Pulses: Normal Dorsalis Pedis Skin: Normal Color, Warm
[2018-02-20 01:17] LABS: IRON 16 ug/dL (45-180)
[2018-02-20 01:27] LABS: % IRON SATURATION 9 % (20-55); TOTAL IRON BINDING CAPACITY 180 ug/dL (261-462)
[2018-02-20 03:00] LABS: TROPONIN I 0.28 ng/mL
[2018-02-20] MEDS: Levothyroxine 25 MCG TAB PO SCH (06:11)
[2018-02-20] MEDS ORDERED: Arformoterol 15 mcg/2 ml Inh Sol IH SCH (08:00)
--- NOTE | 2018-02-20 08:24 | CT ---
Date of service: 02/19/2018 PROCEDURE: CT HEAD WITHOUT CONTRAST. HISTORY: ?AMS COMPARISON: Noncontrast head CT performed 01/05/18 TECHNIQUE: Axial computed tomography images were obtained through the head/brain without intravenous contrast. Radiation dose: Total exam DLP = 906.73 mGy-cm. This CT exam was performed using one or more of the following dose reduction techniques: Automated exposure control, adjustment of the mA and/or kV according to patient size, and/or use of iterative reconstruction technique. FINDINGS: HEMORRHAGE: No intracranial hemorrhage. BRAIN: Diffuse atrophy with prominence of the ventricles and sulci noted. No mass effect or edema. Intracranial atherosclerosis. Left parietal encephalomalacia consistent with remote infarction. Chronic appearing left basal ganglia and right thalamic lacunar infarcts. Scattered periventricular and subcortical white matter hypodensities, which are nonspecific, but often seen with chronic microvascular ischemic disease. Please note that MRI with diffusion imaging is more sensitive in the detection of acute ischemic event. VENTRICLES: No hydrocephalus. CALVARIUM: Unremarkable. PARANASAL SINUSES: Unremarkable as visualized. No significant inflammatory changes. MASTOID AIR CELLS: Unremarkable as visualized. No inflammatory changes. OTHER FINDINGS: None. IMPRESSION: Left parietal lobe encephalomalacia consistent with remote infarction. Chronic appearing left basal ganglia and right thalamic lacunar infarcts. Nonspecific white matter changes. Generalized atrophy. Preliminary impression was provided by [employer].
--- NOTE | 2018-02-20 08:58 | HP ---
DATE OF EXAM: 02/19/2018 The patient was seen and examined at the bedside in the emergency room on 02/19/2018. CHIEF COMPLAINT: Altered mental status. HISTORY OF PRESENT ILLNESS: Mr. Graham Zuñiga is an 87-year-old male, was in the rehab in [facility] , history of congestive heart failure, GI bleeding, chronic renal failure and sepsis, came to emergency department from far for evaluation of the chest pain, mildly lethargic, shortness of breath prior to arrival. As per detention documentation, the patient reports experiencing altered mental status, lethargy in the detention earlier this morning. The patient was getting O2. They informed me and they transferred the patient to [facility] Emergency [facility]. We did CAT scan of the head; results are not ready. Electrocardiogram is done. CAT scan of chest, abdomen, and pelvis done; results are not ready. Sepsis protocol was done. Admitted the patient, gave antibiotics. ID consult called. PAST MEDICAL HISTORY: As above, history of CABG, cardiac stenting, COPD, dementia, difficulty of chewing, renal disorder, blood disorder, anemia, history of Staph bacteremia, history of multiple falls, noncompliant, has habit of pulling his Mann catheter and the midline. FAMILY HISTORY: Father and mother noncontributory. HABITS: Currently smoking. No drugs. No ethanol. ALLERGIES: THE PATIENT IS NOT ALLERGIC WITH ANY MEDICATION. HOME MEDICATIONS: Tylenol, furosemide. REVIEW OF SYSTEMS: The patient was seen and examined at the bedside in the emergency room, looking comfortable. No fever. No vision changes. No hearing changes. No shortness of breath. Complaining of burning type of chest pain, altered mental status. No rash. No pruritus. No skin lesion. No headache. No dizziness. PHYSICAL EXAMINATION: VITAL SIGNS: Temperature is 98.9, pulse 100, respiratory rate 18, blood pressure 101/89, pulse oximetry 92. HEENT: Head is normocephalic, atraumatic. Eyes: PERRLA. Extraocular muscles are intact. Conjunctivae clear. Nose patent. Mucous membranes moist. NECK: Supple. No carotid bruit. No JVD or thyromegaly. CHEST: Bilaterally symmetrical. HEART: S1 and S2 positive. LUNGS: Clear to auscultation. ABDOMEN: Soft. Bowel sounds present. No organomegaly. EXTREMITIES: No edema. No cyanosis. NEUROLOGICAL: The patient is awake, alert, but confused. LABORATORY DATA: White blood cell noted , hemoglobin 8.1, hematocrit 26.0, platelets 97. Sodium 141, potassium 4.2, BUN 41, creatinine 3.4, glucose 124. One set of troponin is done, which is 0.29. ASSESSMENT AND PLAN: Mr. Graham Zuñiga is an 87-year-old male with leukocytosis, anemia, thrombocytopenia, renal insufficiency, hyperglycemia, rule out myocardial infarction, cardiac troponin is positive, influenza type A and B. The patient has proteinuria, hematuria, and urinary tract infection. Antibiotics will help . Waiting for CAT of the chest and abdomen and MRI. Gastrointestinal and deep venous thrombosis prophylaxis. Repeat labs. We will follow up. Irasema Rivas MD MTDD
[2018-02-20] MEDS ORDERED: Oseltamivir 6 MG/ML PO SCH (10:00)
[2018-02-20] MEDS: Pantoprazole 20 mg EC Tab PO SCH (10:01)
[2018-02-20] MEDS: Budesonide 0.25 mg/2 ml Inhal Susp UD IH SCH (10:02)
[2018-02-20] MEDS: Arformoterol 15 mcg/2 ml Inh Sol IH SCH (10:02)
[2018-02-20] MEDS: diltiaZEM 180 mg/24 Hours CD Cap PO SCH (10:02)
[2018-02-20] MEDS ORDERED: MEROPENEM 500 MG in NS 500 MG/50 ML BAG IVPB SCH (12:00)
[2018-02-20] MEDS ORDERED: DAPTOmycin 500 mg Inj (Cubicin) IV SCH (12:00)
--- NOTE | 2018-02-20 12:07 | CT ---
Date of service: 02/19/2018 PROCEDURE: CT Chest, Abdomen and Pelvis without intravenous contrast HISTORY: febrile, tachy COMPARISON: 01/04/2018 CT thorax TECHNIQUE: Radiation dose: Total exam DLP = 396.53 mGy-cm. This CT exam was performed using one or more of the following dose reduction techniques: Automated exposure control, adjustment of the mA and/or kV according to patient size, and/or use of iterative reconstruction technique. FINDINGS: CT CHEST WITHOUT CONTRAST: LUNGS: Interval improvement in aeration of the lungs primarily related to decrease in pleural effusions. Compared to the prior study. New apical infiltrate on the right. MEDIASTINUM: Cardiomegaly. No evidence of acute, significant cardiovascular disease. Atherosclerotic calcifications identified throughout the thoracic aorta. Dilated main pulmonary artery consistent with pulmonary arterial hypertension. LYMPH NODES: Unremarkable. PLEURA: Decrease in bilateral pleural effusions. BONES: Unremarkable. OTHER FINDINGS: None. CT ABDOMEN AND PELVIS: LIVER: Unremarkable. No gross lesion or ductal dilatation. GALLBLADDER AND BILE DUCTS: Cholelithiasis without CT evidence of acute cholecystitis. PANCREAS: Unremarkable. No gross lesion or ductal dilatation. SPLEEN: Unremarkable. ADRENALS: Unremarkable. No mass. KIDNEYS AND URETERS: Unremarkable. No hydronephrosis. No solid mass. VASCULATURE: Atherosclerotic calcification and mural plaque present. Findings are seen throughout the aorta Mildly aneurysmal abdominal aorta unchanged compared to the prior study. BOWEL: Unremarkable. No obstruction. No gross mural thickening. APPENDIX: Normal appendix. PERITONEUM: Unremarkable. No free fluid. No free air. LYMPH NODES: Unremarkable. No enlarged lymph nodes. BLADDER: Mann catheter identified within the urinary bladder. The bladder is empty. REPRODUCTIVE: Unremarkable. BONES: No acute fracture. OTHER FINDINGS: None. IMPRESSION: Decrease in pleural effusions compared to the prior study. Commensurate increase in aeration of the lower lobes. New infiltrate right upper lobe. Cholelithiasis without CT evidence of acute cholecystitis. Concordant findings (preliminary report) provided by [employer].
[2018-02-20 13:32] LABS: FOLATE 6.7 ng/mL
[2018-02-20] MEDS ORDERED: Pneumococcal 23-Valent Vaccine IM ONE (14:19)
[2018-02-20] MEDS ORDERED: Influenza Vaccine 60 mcg/0.5 mL SYR (4YR UP) IM ONE (14:19)
--- NOTE | 2018-02-20 14:28 | CP.PCM.CON ---
<Elisa Lombardo - Last Filed: 02/20/18 14:23> History of Present Illness - History of Present Illness History of Present Illness: ID Consult Note - Dr Lubin CC: AMS HPI: 87 M with a PMHx of CHF, GI bleed, anemia, chronic renal failure, CABG, Afib and COPD that presented to the [facility] ED with complaints of AMS, shortness of breath, chest discomfort and lethargy as per care home that transferred him. Pt was received from [facility] [place], [place]. Pt failed bedside swallow in ED and was NPO. He was seen and examined at bedside this morning. He is conversing appropriately and coherent. He has no acute complaints at the time of interview and was eating his breakfast. He, however does not remember how he came to the [facility] ED. He is AAOx2, chronic sol in place. He denied fevers, chills, shortness of breath, chest pains, abdominal pains, nausea, vomiting, diarrhea or constipation. PMH: CHF, GI bleed, anemia, chronic renal failure, CABG, Afib and COPD PSH: CABG and AICD Family History: Unobtainable Social History: Former tobacco use; Denies any alcohol or illicit drug use; Resident of [facility] Allergies: NKDA Home Medications: As per MAR Review of Systems - Review of Systems Review of Systems: as per HPI otherwise negative Past Patient History - Infectious Disease Hx of Infectious Diseases: None - Past Medical History & Family History Past Medical History?: Yes - Past Social History Smoking Status: Light Smoker < 10 Cigarettes Daily - CARDIAC Hx Cardiac Disorders: Yes (CABG, coronary stents, A fib, mi) Hx Congestive Heart Failure: Yes Hx Hypertension: Yes Hx Internal Defibrillator: Yes (aicd) Hx Pacemaker: Yes (aicd) Other/Comment: cardiomyopathy - PULMONARY Hx Respiratory Disorders: Yes Hx Chronic Obstructive Pulmonary Disease (COPD): Yes - NEUROLOGICAL Hx Neurological Disorder: Yes Hx Dementia: Yes - HEENT Hx HEENT Problems: Yes Hx Difficulty Chewing: Yes - RENAL Hx Chronic Kidney Disease: Yes Hx Renal Failure: Yes - ENDOCRINE/METABOLIC Hx Endocrine Disorders: Yes Hx Hypothyroidism: Yes - HEMATOLOGICAL/ONCOLOGICAL Hx Blood Disorders: Yes (sepsis from uti) Hx Anemia: Yes (has had transfusions) Other/Comment: hx of staph bacteremia - INTEGUMENTARY Hx Dermatological Problems: Yes Other/Comment: thick dry toenails, dry skin both heels, multiple small light skin pigmenttions ble talha skin discoloprations upper back, sacrum healed scar - MUSCULOSKELETAL/RHEUMATOLOGICAL Hx Musculoskeletal Disorders: Yes Hx Falls: Yes (past) Hx Unsteady Gait: Yes (oob to chair in care home) - GASTROINTESTINAL Hx Gastrointestinal Disorders: Yes (gi bleed) HX Swallowing Problems: Yes Other/Comment: egd 2018 gastritis, hemorrhoids - GENITOURINARY/GYNECOLOGICAL Hx Genitourinary Disorders: Yes (pt on flomax) Hx Hematuria: Yes Hx Urinary Tract Infection: Yes Other/Comment: sol catheter for retention/pulled out several times by pt - PSYCHIATRIC Hx Psychophysiologic Disorder: No Hx Substance Use: No - SURGICAL HISTORY Hx Surgeries: Yes Hx Cardiac Catheterization: Yes Hx Open Heart Surgery: Yes (CABG) - ANESTHESIA Hx Anesthesia Reactions: No Hx Malignant Hyperthermia: No Meds Allergies/Adverse Reactions: Allergies Allergy/AdvReac Type Severity Reaction Status Date / Time No Known Allergies Allergy Verified 04/11/17 19:07 - Medications Medications: Current Medications Acetaminophen (Tylenol 325mg Tab) 650 mg PO Q4H PRN PRN Reason: Pain, Mild (1-3) Acetaminophen (Tylenol 325mg Tab) 650 mg PO Q4H PRN PRN Reason: Fever >100.5 F Albuterol/Ipratropium (Duoneb 3 Mg/0.5 Mg (3 Ml) Ud) 3 ml IH Q4 PRN PRN Reason: Shortness of Breath Arformoterol Tartrate (Brovana) 15 mcg IH [id number] [facility] Last Admin: 02/20/18 10:02 Dose: 15 mcg Aspirin (Ecotrin) 81 mg PO DAILY [facility] Last Admin: 02/20/18 10:02 Dose: 81 mg Budesonide (Pulmicort Respules) 0.25 mg IH [id number] [facility] Last Admin: 02/20/18 10:02 Dose: 0.25 mg Diltiazem HCl (Cardizem Cd) 180 mg PO DAILY [facility] Last Admin: 02/20/18 10:02 Dose: 180 mg Furosemide (Lasix) 40 mg IV DAILY [facility] Last Admin: 02/20/18 12:13 Dose: 40 mg Hydralazine HCl (Apresoline) 10 mg PO DAILY PRN PRN Reason: Systolic Blood Pressure >170 Meropenem/Sodium Chloride (Merrem Iv 500 Mg/Ns 50 Ml) 500 mg in 50 mls @ 100 mls/hr IVPB Q24H [facility]; Protocol Stop: 02/27/18 12:01 Last Admin: 02/20/18 12:57 Dose: 100 mls/hr Daptomycin 600 mg/ Sodium (Chloride) 100 mls @ 200 mls/hr IV Q48H [facility] Stop: 03/07/18 10:01 Influenza Virus Vaccine (Flucelvax Quad [id number] Syr) 60 mcg IM .ONCE ONE Stop: 02/20/18 14:20 Isosorbide Mononitrate (Imdur Er) 30 mg PO DAILY [facility] Last Admin: 02/20/18 10:03 Dose: 30 mg Levothyroxine Sodium (Synthroid) 25 mcg PO 0600 [facility] Last Admin: 02/20/18 06:11 Dose: 25 mcg Montelukast Sodium (Singulair) 10 mg PO DAILY [facility] Last Admin: 02/20/18 10:03 Dose: 10 mg Oseltamivir Phosphate (Tamiflu Susp) 30 mg PO QOTHERDAY [facility]; Protocol Stop: 02/25/18 10:01 Last Admin: 02/20/18 10:03 Dose: 30 mg Pantoprazole Sodium (Protonix Ec Tab) 20 mg PO 0600 [facility] Last Admin: 02/20/18 10:01 Dose: 20 mg Pneumococcal Polyvalent Vaccine (Pneumovax 23 Vaccine) 0.5 ml IM .ONCE ONE Stop: 02/20/18 14:20 Tamsulosin HCl (Flomax) 0.8 mg PO DAILY [facility] Last Admin: 02/20/18 10:03 Dose: 0.8 mg Physical Exam - Constitutional Appears: No Acute Distress - Head Exam Head Exam: ATRAUMATIC, NORMAL INSPECTION, NORMOCEPHALIC - Eye Exam Eye Exam: Conjunctival injection Pupil Exam: NORMAL ACCOMODATION, PERRL - ENT Exam ENT Exam: Mucous Membranes Dry - Neck Exam Neck exam: Positive for: Normal Inspection - Respiratory Exam Respiratory Exam: Decreased Breath Sounds - Cardiovascular Exam Cardiovascular Exam: Tachycardia, +S1, +S2 - GI/Abdominal Exam GI & Abdominal Exam: Normal Bowel Sounds, Soft. absent: Tenderness - Neurological Exam Neurological exam: Alert, CN II-XII Intact, Reflexes Normal - Psychiatric Exam Psychiatric exam: Normal Affect, Normal Mood Results - Vital Signs Recent Vital Signs: Last Vital Signs Temp 98.6 F 02/20/18 11:20 Pulse 96 H 02/20/18 13:41 Resp 18 02/20/18 13:41 BP 135/76 02/20/18 12:13 Pulse Ox 96 02/20/18 11:20 - Labs Result Diagrams: 02/19/18 18:04 02/19/18 18:04 Labs: Laboratory Results - last 24 hr 02/19/18 02/19/18 02/19/18 18:04 18:04 18:04 WBC 15.4 H D RBC 3.05 L Hgb 8.1 L Hct 26.0 L MCV 85.2 MCH 26.6 MCHC 31.2 RDW 17.6 H Plt Count 97 L Gran % 92.1 H Lymph % (Auto) 3.5 L [place] % (Auto) 4.2 Eos % (Auto) 0.0 L Baso % (Auto) 0.2 Gran # 14.22 H Lymph # (Auto) 0.5 L [place] # (Auto) 0.7 H Eos # (Auto) 0.0 Baso # (Auto) 0.03 Neutrophils % (Manual) 87 H Band Neutrophils % 2 Lymphocytes % (Manual) 7 L Monocytes % (Manual) 3 Eosinophils % (Manual) 1 Platelet Evaluation Normal Large Platelets Present Hypochromasia Slight Anisocytosis (manual) 1+ PT INR APTT pO2 113 H VBG pH 7.38 VBG pCO2 49.0 VBG HCO3 29.0 H VBG Total CO2 30.5 H VBG O2 Sat (Calc) 99.7 H VBG Base Excess 3.0 H VBG Potassium 4.1 Sodium 141.0 141 Chloride 106.0 106 Glucose 127 H Lactate 1.5 FiO2 21.0 Potassium 4.2 Carbon Dioxide 27 Anion Gap 12 BUN 41 H Creatinine 3.4 H Est GFR ( Amer) 21 Est GFR (Non-Af Amer) 17 Random Glucose 124 H Hemoglobin A1c Calcium 10.0 Magnesium 2.2 Iron TIBC % Saturation Total Bilirubin 0.8 AST 23 ALT 22 Alkaline Phosphatase 105 Lactate Dehydrogenase Total Creatine Kinase Troponin I 0.29 H* D Total Protein 6.9 Albumin 3.0 Globulin 3.9 Albumin/Globulin Ratio 0.8 L Triglycerides Cholesterol LDL Cholesterol Direct HDL Cholesterol Vitamin B12 Folate Venous Blood Potassium 4.1 Urine Color Urine Appearance Urine pH Ur Specific [place] Urine Protein Urine Glucose (UA) Urine Ketones Urine Blood Urine Nitrate Urine Bilirubin Urine Urobilinogen Ur Leukocyte Esterase Urine RBC Urine WBC Ur Epithelial Cells Urine Bacteria Influenza Typ A,B (EIA) Grp A Beta Strep Ag Blood Type Antibody Screen BBK History Checked 02/19/18 02/19/18 02/19/18 18:04 18:04 18:04 WBC RBC Hgb Hct MCV MCH MCHC RDW Plt Count Gran % Lymph % (Auto) [place] % (Auto) Eos % (Auto) Baso % (Auto) Gran # Lymph # (Auto) [place] # (Auto) Eos # (Auto) Baso # (Auto) Neutrophils % (Manual) Band Neutrophils % Lymphocytes % (Manual) Monocytes % (Manual) Eosinophils % (Manual) Platelet Evaluation Large Platelets Hypochromasia Anisocytosis (manual) PT 16.6 H INR 1.45 APTT 25.0 L pO2 VBG pH VBG pCO2 VBG HCO3 VBG Total CO2 VBG O2 Sat (Calc) VBG Base Excess VBG Potassium Sodium Chloride Glucose Lactate FiO2 Potassium Carbon Dioxide Anion Gap BUN Creatinine Est GFR ( Amer) Est GFR (Non-Af Amer) Random Glucose Hemoglobin A1c Calcium Magnesium Iron 16 L TIBC 180 L % Saturation 9 L Total Bilirubin AST ALT Alkaline Phosphatase Lactate Dehydrogenase Total Creatine Kinase Troponin I Total Protein Albumin Globulin Albumin/Globulin Ratio Triglycerides Cholesterol LDL Cholesterol Direct HDL Cholesterol Vitamin B12 Folate Venous Blood Potassium Urine Color Urine Appearance Urine pH Ur Specific [place] Urine Protein Urine Glucose (UA) Urine Ketones Urine Blood Urine Nitrate Urine Bilirubin Urine Urobilinogen Ur Leukocyte Esterase Urine RBC Urine WBC Ur Epithelial Cells Urine Bacteria Influenza Typ A,B (EIA) Grp A Beta Strep Ag Blood Type O POSITIVE Antibody Screen Negative BBK History Checked Patient has bt 02/19/18 02/19/18 02/20/18 18:20 21:47 01:50 WBC RBC Hgb Hct MCV MCH MCHC RDW Plt Count Gran % Lymph % (Auto) [place] % (Auto) Eos % (Auto) Baso % (Auto) Gran # Lymph # (Auto) [place] # (Auto) Eos # (Auto) Baso # (Auto) Neutrophils % (Manual) Band Neutrophils % Lymphocytes % (Manual) Monocytes % (Manual) Eosinophils % (Manual) Platelet Evaluation Large Platelets Hypochromasia Anisocytosis (manual) PT INR APTT pO2 VBG pH VBG pCO2 VBG HCO3 VBG Total CO2 VBG O2 Sat (Calc) VBG Base Excess VBG Potassium Sodium Chloride Glucose Lactate FiO2 Potassium Carbon Dioxide Anion Gap BUN Creatinine Est GFR ( Amer) Est GFR (Non-Af Amer) Random Glucose Hemoglobin A1c Calcium Magnesium Iron TIBC % Saturation Total Bilirubin AST ALT Alkaline Phosphatase Lactate Dehydrogenase 618 Total Creatine Kinase 142 Troponin I 0.28 H* Total Protein Albumin Globulin Albumin/Globulin Ratio Triglycerides 105 Cholesterol 109 L LDL Cholesterol Direct 52 HDL Cholesterol 17 L Vitamin B12 634 Folate 6.7 Venous Blood Potassium Urine Color Dark yellow Urine Appearance Slight-cloudy Urine pH 6.0 Ur Specific [place] 1.025 Urine Protein 30 H Urine Glucose (UA) Negative Urine Ketones Negative Urine Blood Moderate H Urine Nitrate Negative Urine Bilirubin Small H Urine Urobilinogen 0.2 Ur Leukocyte Esterase Small H Urine RBC 1 - 3 Urine WBC 1 - 3 Ur Epithelial Cells 1 - 3 Urine Bacteria Trace Influenza Typ A,B (EIA) Negative for flu a/b Grp A Beta Strep Ag Negative Blood Type Antibody Screen BBK History Checked 02/20/18 02/20/18 01:50 11:00 WBC RBC Hgb Hct MCV MCH MCHC RDW Plt Count Gran % Lymph % (Auto) [place] % (Auto) Eos % (Auto) Baso % (Auto) Gran # Lymph # (Auto) [place] # (Auto) Eos # (Auto) Baso # (Auto) Neutrophils % (Manual) Band Neutrophils % Lymphocytes % (Manual) Monocytes % (Manual) Eosinophils % (Manual) Platelet Evaluation Large Platelets Hypochromasia Anisocytosis (manual) PT INR APTT pO2 VBG pH VBG pCO2 VBG HCO3 VBG Total CO2 VBG O2 Sat (Calc) VBG Base Excess VBG Potassium Sodium Chloride Glucose Lactate FiO2 Potassium Carbon Dioxide Anion Gap BUN Creatinine Est GFR ( Amer) Est GFR (Non-Af Amer) Random Glucose Hemoglobin A1c 5.5 Calcium Magnesium Iron TIBC % Saturation Total Bilirubin AST ALT Alkaline Phosphatase Lactate Dehydrogenase Total Creatine Kinase 149 Troponin I Total Protein Albumin Globulin Albumin/Globulin Ratio Triglycerides Cholesterol LDL Cholesterol Direct HDL Cholesterol Vitamin B12 Folate Venous Blood Potassium Urine Color Urine Appearance Urine pH Ur Specific [place] Urine Protein Urine Glucose (UA) Urine Ketones Urine Blood Urine Nitrate Urine Bilirubin Urine Urobilinogen Ur Leukocyte Esterase Urine RBC Urine WBC Ur Epithelial Cells Urine Bacteria Influenza Typ A,B (EIA) Grp A Beta Strep Ag Blood Type Antibody Screen BBK History Checked Assessment & Plan - Assessment and Plan (Free Text) Assessment: 87 M with a PMHx of CHF, GI bleed, anemia, chronic renal failure, CABG, Afib and COPD that presented to the [facility] ED with complaints of AMS, shortness of breath, chest discomfort and lethargy as per care home that transferred him. Sepsis AMS resolved Hx of Methicillin-resistant Staph aureus bacteremia R/O pacemaker infection, on top of ESBL E. coli UTI, in this patient with MRSA bacteremia from 12/30/2017 iron deficiency anemia dyslipidemia COPD CAD S/P CABG with severe ischemic cardiomyopathy S/P pacemaker placement HTN pulmonary HTN Plan continue Daptomycin, tamiflu, and merrem - follow up repeat blood cx, UA demonstrated UTI, recommend ANDRE for vegetations, will obtain Echo for now. will continue to monitor clinically <Eyad Lubin - Last Filed: 02/20/18 22:34> Meds - Medications Medications: Current Medications Acetaminophen (Tylenol 325mg Tab) 650 mg PO Q4H PRN PRN Reason: Pain, Mild (1-3) Acetaminophen (Tylenol 325mg Tab) 650 mg PO Q4H PRN PRN Reason: Fever >100.5 F Albuterol/Ipratropium (Duoneb 3 Mg/0.5 Mg (3 Ml) Ud) 3 ml IH Q4 PRN PRN Reason: Shortness of Breath Arformoterol Tartrate (Brovana) 15 mcg IH [id number] [facility] Last Admin: 02/20/18 10:02 Dose: 15 mcg Aspirin (Ecotrin) 81 mg PO DAILY [facility] Last Admin: 02/20/18 10:02 Dose: 81 mg Budesonide (Pulmicort Respules) 0.25 mg IH [id number] [facility] Last Admin: 02/20/18 10:02 Dose: 0.25 mg Diltiazem HCl (Cardizem Cd) 180 mg PO DAILY [facility] Last Admin: 02/20/18 10:02 Dose: 180 mg Furosemide (Lasix) 40 mg IV DAILY [facility] Last Admin: 02/20/18 12:13 Dose: 40 mg Hydralazine HCl (Apresoline) 10 mg PO DAILY PRN PRN Reason: Systolic Blood Pressure >170 Daptomycin 600 mg/ Sodium (Chloride) 100 mls @ 200 mls/hr IV Q48H [facility] Stop: 03/07/18 10:01 Isosorbide Mononitrate (Imdur Er) 30 mg PO DAILY [facility] Last Admin: 02/20/18 10:03 Dose: 30 mg Levothyroxine Sodium (Synthroid) 25 mcg PO 0600 [facility] Last Admin: 02/20/18 06:11 Dose: 25 mcg Montelukast Sodium (Singulair) 10 mg PO DAILY [facility] Last Admin: 02/20/18 10:03 Dose: 10 mg Oseltamivir Phosphate (Tamiflu Susp) 30 mg PO QOTHERDAY [facility]; Protocol Stop: 02/25/18 10:01 Last Admin: 02/20/18 10:03 Dose: 30 mg Pantoprazole Sodium (Protonix Ec Tab) 20 mg PO 0600 [facility] Last Admin: 02/20/18 10:01 Dose: 20 mg Tamsulosin HCl (Flomax) 0.8 mg PO DAILY [facility] Last Admin: 02/20/18 10:03 Dose: 0.8 mg Results - Vital Signs Recent Vital Signs: Last Vital Signs Temp 97.7 F 02/20/18 18:30 Pulse 80 02/20/18 18:30 Resp 17 02/20/18 18:30 BP 120/60 02/20/18 18:30 Pulse Ox 98 02/20/18 18:30 - Labs Result Diagrams: 02/19/18 18:04 02/19/18 18:04 Labs: Laboratory Results - last 24 hr 02/19/18 02/20/18 02/20/18 18:04 01:50 01:50 Hemoglobin A1c 5.5 Iron 16 L TIBC 180 L % Saturation 9 L Lactate Dehydrogenase 618 Total Creatine Kinase 142 Troponin I 0.28 H* Triglycerides 105 Cholesterol 109 L LDL Cholesterol Direct 52 HDL Cholesterol 17 L Vitamin B12 634 Folate 6.7 02/20/18 11:00 Hemoglobin A1c Iron TIBC % Saturation Lactate Dehydrogenase Total Creatine Kinase 149 Troponin I Triglycerides Cholesterol LDL Cholesterol Direct HDL Cholesterol Vitamin B12 Folate Assessment & Plan - Assessment and Plan (Free Text) Assessment: Infectious diseases Attending Physician Attestation Patient seen and examined, discussed with medical insurance verifier. I have reviewed the patient's history of present illness, past medical, social, personal and family histories, pertinent physical exam findings, course so far in this hospital admission, pertinent laboratory and imaging results. I agree with the above findings, assessment and plan. In addition, we have restarted Daptomycin for this patient with sepsis due to persistent MRSA bacteremia, need to rule out pacemaker infection. Strongly recommend ANDRE since the bacteremia has been persistent and recurrent since December 2017 despite being on proper antibiotics. Will repeat blood cx in 2 days. Will check CPK level.
--- NOTE | 2018-02-20 20:08 | CON ---
DATE: 02/20/2018 LOCATION: The patient is in emergency room, bed #10. REASON FOR CONSULTATION: CHF, coronary artery disease, and renal failure. HISTORY OF PRESENT ILLNESS: The patient is an 87-year-old male who is known to have COPD, congestive heart failure due to systolic dysfunction with cardiomyopathy, coronary artery disease, history of CABG, history of AICD insertion, and dementia, was brought to the emergency room with altered mental status. The patient was drowsy in the intermediate, so he was brought to the emergency room. The patient on questioning say "I do not know why I am here" and his answers are inappropriate consistent with dementia. PAST MEDICAL HISTORY: Positive for COPD, dementia, renal failure, history of massive GI bleeding, had received multiple blood transfusions. The patient also pulls out lines and catheters and once he pulled out catheter, he had massive bleeding. The patient once was considered for ANDRE evaluation, but abandoned the procedure because the patient was very uncooperative and there was danger of perforation. The patient has history of coronary artery disease, history of bypass surgery, cardiomyopathy, systolic LV dysfunction, history of AICD insertion, history of massive GI bleed, also blood loss when patient pulls Mann and there was a massive bleeding from that too, history of gastritis, hyperlipidemia. PERSONAL HISTORY: The patient is an ex-smoker. No history of alcohol abuse. ALLERGIES: NICODERM. MEDICATIONS: The patient's home medications included DuoNeb hand nebulizer therapy, aspirin, furosemide 40 daily, aspirin 81 daily, isosorbide mononitrate 30 daily, Synthroid 25 mcg daily, Namenda 10 mg daily, Singulair 10 mg daily, Protonix 20 mg daily, Flomax 0.8 mg p.o. daily, Cardizem CD 180 p.o. daily, and hydralazine 10 mg p.o. daily p.r.n. REVIEW OF SYSTEMS: All the systems reviewed, positive mentioned in the history, others were negative. PHYSICAL EXAMINATION: VITAL SIGNS: Blood pressure 133/74, respirations 18, pulse 76, the patient is afebrile. HEENT: Head is normocephalic. Eyes, pupils normal. Conjunctivae, slightly pale. NECK: JVP low. Carotid equal. THORAX: AP diameter normal. LUNGS: Bilateral rales. CARDIOVASCULAR: S1, S2. Systolic murmur, grade 2 to 3/6. No rub. AICD implanted in left upper chest intact. ABDOMEN: Soft. Nontender. No organomegaly. Bowel sounds normal. EXTREMITIES: No clubbing. No cyanosis. LABORATORY DATA: WBC 15.4, hemoglobin 8.1, hematocrit 26, platelets 97,000. Sodium 141, potassium 4.2, BUN 41, creatinine 3.4. AST and ALT normal. Troponin 0.29, repeat one was 0.28. Total protein 6.9, albumin 3, globulin 3.9. RADIOGRAPHIC DATA: Chest x-ray, vascular congestion present. EKG showed sinus tachycardia. Echo showed premature ventricular beats, right bundle branch block. The patient had echo on 01/22/2018, showed four-chamber dilatation with LV ejection fraction 15% to 20% consistent with cardiomyopathy, LV systolic dysfunction, trace aortic regurgitation, trace to mild mitral regurgitation, moderate tricuspid regurgitation with RVSP 75 mmHg consistent with severe pulmonary hypertension. RVC is dilated. No vegetation seen. Review of the record shows that the patient has been having troponin elevation since 10/2014. On 11/01/2014 troponin was 0.63 and 0.66. On 01/01, this was 9.01 and 7.83. On 01/05, 1.69 and 1.26. On this admission, 02/19/2018 was 0.29 and on 02/20/2018 was 0.28. DIAGNOSES: This troponin elevation is probably falls. As mentioned above, the patient has long history of elevation of troponins, anyhow, the patient is not a candidate for any intervention therapy because of dementia, renal failure, low platelet count. The patient admitted with altered mental status. The patient also found to have changes consistent with congestive heart failure, renal failure, anemia, thrombocytopenia, chronic obstructive pulmonary disease, severe pulmonary hypertension, coronary artery disease, history of coronary artery bypass grafting, history of automatic implantable cardioverter-defibrillator insertion, rule out sepsis. PLAN: The patient was put on Lasix 40 p.o., we will it change to 40 IV daily. The patient already on aspirin 81 mg daily,Dilitiazem CD 180 p.o. daily, DuoNeb hand nebulizer therapy, Flomax 0.8 daily, isosorbide mononitrate 30 daily, Protonix 20 daily, Singulair 10 mg h.s., levothyroxine 25 mcg p.o. daily. We will continue present therapy and we will monitor electrolytes, BUN. We will add Coreg to his therapy and monitor electrolytes, BUN, and creatinine. We will follow with you. Radha Jacobson MD
[2018-02-21] MEDS: Pantoprazole 20 mg EC Tab PO SCH (05:36)
[2018-02-21] MEDS: Levothyroxine 25 MCG TAB PO SCH (05:36)
[2018-02-21 06:42] LABS: HEMOGLOBIN 8.2 g/dL (14.0-18.0); MEAN CELL VOLUME 84.2 fl (80.0-105.0); MEAN CORPUSCULAR HEMOGLOBIN 26.4 pg (25.0-35.0); MEAN CORPUSCULAR HGB CONC 31.3 g/dl (31.0-37.0); RBC 3.11 10^6/uL (3.5-6.1); RED CELL DISTRIBUTION WIDTH 17.7 % (11.5-14.5); WHITE BLOOD COUNT 14.8 10^3/uL (4.5-11.0)
[2018-02-21 07:00] LABS: CALCIUM 9.5 mg/dL (8.4-10.5)
[2018-02-21] MEDS: Arformoterol 15 mcg/2 ml Inh Sol IH SCH ×2 (07:54→20:24)
[2018-02-21] MEDS: Budesonide 0.25 mg/2 ml Inhal Susp UD IH SCH ×2 (07:54→20:25)
--- NOTE | 2018-02-21 08:00 | PN ---
DATE: 02/20/2018 SUBJECTIVE: The patient is an 87-year-old male. The patient was seen and examined at the bedside on 02/20/2018. The patient is seen in his room, awake, alert, looking comfortable. No fever. No chills. No nausea, vomiting, diarrhea. No hematuria or hematochezia. No swelling of the legs. No chest pain. No palpitation. No headache. No dizziness. PHYSICAL EXAMINATION VITAL SIGNS: Temperature 98.6, pulse 96, respiratory rate 18, blood pressure 135/76. HEENT: Head: Normocephalic, atraumatic. Eyes: PERRLA. Extraocular muscles are intact. Conjunctivae clear. Nose patent. Mucous membranes moist. NECK: Supple. No carotid bruit. No JVD or thyromegaly. CHEST: Bilaterally symmetrical. HEART: S1 and S2 positive. LUNGS: Clear to auscultation. ABDOMEN: Soft. Bowel sounds present. No organomegaly. EXTREMITIES: No edema. No cyanosis. NEUROLOGIC: The patient is awake, alert. Moving all 4 extremities. No focal deficit. LABORATORY DATA: White blood cells 15.4, hemoglobin 8.1, hematocrit 26.0, platelets 97. Sodium 141, potassium 4.2, BUN 41, creatinine 3.4, glucose 124. ASSESSMENT AND PLAN: Mr. Graham Zuñiga, 87-year-old male, with leukocytosis, anemia, thrombocytopenia, renal insufficiency, diabetes mellitus, history of congestive heart failure, gastrointestinal bleeding, chronic renal failure, coronary artery bypass graft, atrial fibrillation, chronic obstructive pulmonary disease, was getting rehab in [facility], came with complaints of altered mental status, shortness of breath, chest discomfort, and lethargy as per snf staff. Looks like the patient has sepsis; altered mental status is getting better; history of methicillin-resistant Staphylococcus aureus bacteremia; rule out pacemaker infection on the top of extended-spectrum beta-lactamase Escherichia coli; urinary tract infection in the patient with methicillin-resistant Staphylococcus aureus bacteremia on 12/30/2017; iron-deficiency anemia; dyslipidemia; chronic obstructive pulmonary disease; coronary artery disease, status post coronary artery bypass graft with severe ischemic cardiomyopathy, status post pacemaker; hypertension; pulmonary hypertension. Tamiflu, and Merrem. Follow up repeat blood cultures. Urinalysis demonstrated urinary tract infection. Recommended transesophageal echocardiography for vegetation. We will obtain echo for now. We will continue the present treatment. Appreciated Infectious Disease input. We will follow up. Irasema Rivas MD [facility]
[2018-02-21] MEDS ORDERED: DAPTOmycin 500 mg Inj (Cubicin) IV SCH (10:00)
[2018-02-21] MEDS: DAPTOmycin 600 MG in Sodium Chloride 0.9% 100 ML IV SCH (10:47)
[2018-02-21] MEDS: diltiaZEM 180 mg/24 Hours CD Cap PO SCH (10:48)
--- NOTE | 2018-02-21 11:23 | CP.PCM.PN ---
Subjective - Date & Time of Evaluation Date of Evaluation: 02/21/18 Time of Evaluation: 06:35 - Subjective Subjective: Awake, no distress, denies chest pain Reason for consultation and follow up:Cardiac evaluation of CHF and coronary artery disease Seen and examined by me and Dr. Woodward Objective - Vital Signs/Intake and Output Vital Signs (last 24 hours): Temp Pulse Resp BP Pulse Ox 98.2 F 75 18 116/53 L 95 02/21/18 06:00 02/21/18 10:48 02/21/18 06:00 02/21/18 10:49 02/21/18 06:00 Intake and Output: 02/21/18 02/21/18 06:59 18:59 Intake Total 300 Output Total 800 Balance -500 - Medications Medications: Current Medications Acetaminophen (Tylenol 325mg Tab) 650 mg PO Q4H PRN PRN Reason: Pain, Mild (1-3) Acetaminophen (Tylenol 325mg Tab) 650 mg PO Q4H PRN PRN Reason: Fever >100.5 F Albuterol/Ipratropium (Duoneb 3 Mg/0.5 Mg (3 Ml) Ud) 3 ml IH Q4 PRN PRN Reason: Shortness of Breath Arformoterol Tartrate (Brovana) 15 mcg IH [id number] [facility] Last Admin: 02/21/18 07:54 Dose: 15 mcg Aspirin (Ecotrin) 81 mg PO DAILY [facility] Last Admin: 02/21/18 10:48 Dose: 81 mg Budesonide (Pulmicort Respules) 0.25 mg IH [id number] [facility] Last Admin: 02/21/18 07:54 Dose: 0.25 mg Diltiazem HCl (Cardizem Cd) 180 mg PO DAILY [facility] Last Admin: 02/21/18 10:48 Dose: 180 mg Furosemide (Lasix) 40 mg IV DAILY [facility] Last Admin: 02/21/18 10:49 Dose: 40 mg Hydralazine HCl (Apresoline) 10 mg PO DAILY PRN PRN Reason: Systolic Blood Pressure >170 Daptomycin 600 mg/ Sodium (Chloride) 100 mls @ 200 mls/hr IV Q48H [facility] Stop: 03/07/18 10:01 Last Admin: 02/21/18 10:47 Dose: 200 mls/hr Isosorbide Mononitrate (Imdur Er) 30 mg PO DAILY [facility] Last Admin: 02/21/18 10:48 Dose: 30 mg Levothyroxine Sodium (Synthroid) 25 mcg PO 0600 [facility] Last Admin: 02/21/18 05:36 Dose: 25 mcg Montelukast Sodium (Singulair) 10 mg PO DAILY [facility] Last Admin: 02/21/18 10:48 Dose: 10 mg Oseltamivir Phosphate (Tamiflu Susp) 30 mg PO QOTHERDAY [facility]; Protocol Stop: 02/25/18 10:01 Last Admin: 02/20/18 10:03 Dose: 30 mg Pantoprazole Sodium (Protonix Ec Tab) 20 mg PO 0600 [facility] Last Admin: 02/21/18 05:36 Dose: 20 mg Tamsulosin HCl (Flomax) 0.8 mg PO DAILY [facility] Last Admin: 02/21/18 10:48 Dose: 0.8 mg - Labs Labs: 02/21/18 06:00 02/21/18 06:00 PT 16.6 SECONDS (9.4-12.5) H 02/19/18 18:04 INR 1.45 02/19/18 18:04 APTT 25.0 Seconds (25.1-36.5) L 02/19/18 18:04 - Constitutional Appears: Non-toxic, No Acute Distress - Head Exam Head Exam: NORMAL INSPECTION, NORMOCEPHALIC - Eye Exam Eye Exam: Normal appearance Pupil Exam: NORMAL ACCOMODATION - ENT Exam ENT Exam: Mucous Membranes Moist, Normal Exam - Respiratory Exam Respiratory Exam: Clear to Ausculation Bilateral, NORMAL BREATHING PATTERN - Cardiovascular Exam Cardiovascular Exam: +S1, +S2 Additional comments: PPM/AICD - GI/Abdominal Exam GI & Abdominal Exam: Soft, Normal Bowel Sounds - Exam Additional comments: sol catheter - Neurological Exam Neurological Exam: Awake - Psychiatric Exam Psychiatric exam: Normal Affect, Normal Mood - Skin Skin Exam: Dry, Normal Color, Warm Assessment and Plan - Assessment and Plan (Free Text) Assessment: An 87 year old male who came from [facility] due to altered mental status, chest pain and shortness of breath. History of GI bleed, anemia, chronic renal failure, coronary artery disease post CABG, Afib and COPD, systolic dysfunction CHF. Elevated troponin 0.29/0.28. Echo done 01/22/18 LVEF 15-25%, Trace AR/MR, moderate TR RVSP 75 mmHg,moderate to severe pulmonary hypertension. Will treat medically for now for elevated troponin. No cardiac catheterization for now due to renal insufficiency. Denies chest pain now. ANDRE was not done from previous admission due to severe dementia and agitation due to risk of perforation. Plan: Denies chest pain No distress Heart rate stable Blood pressure stable Elevated troponin, will treat medically due to elevated BUN/Creatinine for now Continue antibiotics as per ID Bacteremia, ID on consult Continue current medications Continue current treatment Will follow up Plan and treatment discussed with Dr. Woodward
--- NOTE | 2018-02-21 13:54 | CON ---
PULMONARY CONSULT DATE: 02/21/2018 REFERRING PHYSICIAN: Irasema Rivas MD REASON FOR CONSULT: COPD, shortness of breath. HISTORY OF PRESENT ILLNESS: This is an 87-year-old male with past medical history of congestive heart failure, GI bleed, chronic renal failure, anemia, CABG, atrial fibrillation, COPD, sepsis, dementia, multiple falls, history of noncompliance. The patient was brought in to the hospital from [facility] due to altered mental status, shortness of breath, chest discomfort, and lethargy. Chest CT showed decreased in pleural effusions compared to prior study, increase in aeration of lower lobes, new infiltrate in right upper lobe, cholelithiasis without CT evidence of acute cholecystitis. The patient is currently on droplet precaution for a suspected influenza. PAST MEDICAL HISTORY: As mentioned in HPI. FAMILY HISTORY: No cardiopulmonary disease reported. ALLERGIES: NO KNOWN DRUG ALLERGIES. SOCIAL HISTORY: Current smoker, no drug use, no EtOH. MEDICATION: Reviewed. Tylenol 650 mg every 4 hours p.r.n. for mild pain. Tylenol 650 mg every 4 hours p.r.n. for fever greater than 100.5, DuoNeb 3 mL inhalation every 4 hours as needed, Brovana 15 mcg inhalation every 12 hours, Ecotrin 81 mg p.o. daily, Pulmicort 0.25 mg inhalation every 12 hours, daptomycin 600 mg every 48 hours, Cardizem 180 mg daily, Lasix 40 mg daily, hydralazine 10 mg daily as needed, isosorbide mononitrate 30 mg daily, Synthroid 75 mcg daily, Singulair 10 mg daily, Tamiflu 30 mg every other day, Protonix 20 mg daily, Flomax 0.8 mg daily. REVIEW OF SYSTEMS: No headache, rhinitis, shortness of breath, chest pain, abdominal pain, nausea, vomiting, diarrhea, leg pain, leg swelling reported. The patient does report moist cough, nonproductive. PHYSICAL EXAMINATION: GENERAL: In no acute distress. VITAL SIGNS: Blood pressure 116/53, pulse 75, temperature 98.2, respirations 18, oxygen saturation 95% on 2 L nasal cannula. HEENT: Normocephalic, atraumatic. Moist mucous membranes. NECK: Supple. No JVD. CHEST: Positive rhonchi bilaterally. Expiratory wheeze to left lung. CARDIOVASCULAR: S1 and S2 audible. ABDOMEN: Soft. No distention. No tenderness. Bowel sounds present. No organomegaly. EXTREMITIES: No bilateral edema. NEUROLOGIC: Awake, alert, some confusion present, verbal, able to follow simple commands. LABORATORY DATA: Reviewed. WBC 14.8, RBC 3.11, hemoglobin 8.2, hematocrit 26.2, platelets 101. Sodium 141, potassium 4.3, chloride 107, carbon dioxide 29, anion gap 10, BUN 56, creatinine 3.4. GFR 21. Random glucose 102, calcium 9.5. Troponin on 02/20/2018 was 0.28. TSH 2.99. IMPRESSION AND PLAN: Leukocytosis, anemia, thrombocytopenia, renal insufficiency, possible myocardial infarction with positive troponin, possible influenza type A and B, influenza A and B to be repeated, urinary tract infection The patient does have history of gastrointestinal bleed, therefore we will not do chemical deep venous thrombosis prophylaxis, but we will use sequential compression devices while in bed. We will order procalcitonin level, Pro-BNP level to asses heart failure versus pneumonia. Head of bed elevated 45 degrees, aspiration precaution, gastric prophylaxis. This patient was seen and examined with Dr. Vail. Discussed assessment and plan as described above. Thank you for this consult and we will follow with you. Cornel Collins APN [facility]
--- NOTE | 2018-02-21 15:38 | PN ---
DATE: 02/21/2018 REASON FOR CONSULTATION: Followup cardiac evaluation, CHF, coronary artery disease, persistent bacteremia, rule out endocarditis for ANDRE. This note is in addition to dictated by the nurse practitioner, Marely Padilla. The patient was transferred from the [facility] for altered mental status, history of CABG, history of AFib, history of COPD, systolic dysfunction, elevated troponin, borderline echo dated 01/22/2018, shows ejection fraction 25%, trace to moderate tricuspid regurgitation, RVS pressure 75. Repeat blood culture persistently positive, RV systolic pressure 75 consistent with pulmonary hypertension. Since the patient is not cooperative, altered mental status, VERY HIGH RISK FOR ESOPHAGEAL PERFORATION. In view of risk of benefit ratio is more benefit not to do the procedure, we will not proceed for NADRE, treat this patient as unproven endocarditis and 4 to 6 weeks of antibiotic. We will discuss with Dr. Rivas. We will discuss with Dr. Eyad Lubin, Infectious Disease, again it will be very high risk due to the ANDRE for esophageal perforation and complication because the patient is not cooperative and altered mental status and keep on pulling the line as well, so suggest to treat with aggressive medical treatment, no invasive cardiac workup is planned at this time. SUGGEST TO TREAT EMPIRICALLY ENDOCARDITIS (Unproven and Undocumented), Like 4-6 week of IV Antibiotics, not a candidate for Invasive work up, would be more detrimental.I will discuss again with Drs. Rivas ,Chanel, and Miguel Angel, also discussed in the past. Continue Cardizem, wanted to continue Coreg, continue isosorbide nitrate. Thank you Dr. Rivas for providing us the opportunity in taking care of patient, Yogesh Ruth. Radha Woodward MD [facility]
--- NOTE | 2018-02-21 20:12 | PN ---
DATE: 02/21/2018 SUBJECTIVE: The patient is seen in bed, in no acute distress, and nontoxic. OBJECTIVE: VITAL SIGNS: Temperature is 98, blood pressure is 130/50, and respiratory rate of 18. HEENT: Unremarkable. NECK: Supple. LUNGS: Have decreased breath sounds. HEART: Normal S1 and S2. ABDOMEN: Soft and nontender. LABORATORY DATA: Reveals a white count of 14,800 and hemoglobin of 8. BUN of 56 and creatinine of 3.4. The urinalysis is noted and serology is noted. Microbiology reveals a Gram-positive cocci in the blood in two bottles. The urine cultures negative. The patient is on daptomycin and Tamiflu. Creatinine is 3.2. Influenza serology is negative. ASSESSMENT AND PLAN This is an 87-year-old female was seen earlier today in 277, bed 1 with congestive heart failure and gastrointestinal bleed with chronic renal failure, coronary artery bypass graft, atrial fibrillation, chronic obstructive lung disease with lethargy from a usp with an automatic implantable cardioverter-defibrillator now with sepsis with Gram-positive cocci bacteremia, must rule out pacemaker infection, on daptomycin. We will repeat blood cultures x2. We will need a transesophageal echocardiography to rule out endocarditis. We will check on the identification of Gram-positive cocci and repeat blood culture it is cleared. We will follow closely with you. Overall prognosis poor. Thor Fairbanks MD
--- NOTE | 2018-02-21 22:37 | PN ---
DATE: 02/21/2018 SUBJECTIVE: The patient is an 87-year-old male. The patient was seen and examined. Daughter and son-in-law was sitting on the bedside, feeling a little bit better. No fever. No chills. No hematuria. No hematochezia. No swelling of the legs. No chest pain. No palpitation. PHYSICAL EXAMINATION: VITAL SIGNS: Blood pressure 116/53, pulse 75, temperature 98.2, respiratory rate 18, and oxygen saturation 95% on 2 L nasal cannula. HEENT: Normocephalic and atraumatic. Eyes; PERRLA. Extraocular muscles are intact. Conjunctivae clear. Nose patent. Mucous membranes moist. NECK: Supple. No carotid bruit, JVD or thyromegaly. CHEST: Bilaterally symmetrical. HEART: S1 and S2 positive. LUNGS: Clear to auscultation. ABDOMEN: Soft. Bowel sounds present. No organomegaly. EXTREMITIES: No edema. No cyanosis. NEUROLOGIC: The patient is awake and alert. Moving all 4 extremities. No focal deficits. LABORATORY DATA: White blood cells 14.8, hemoglobin 8.2, hematocrit 26.2, and platelets 101. Sodium 141, potassium 4.3, BUN 56, and creatinine 3.4. Troponin 0.28. TSH 2.99. MEDICATIONS: Tylenol, DuoNeb, Brovana, Ecotrin, Pulmicort, daptomycin, Cardizem, hydralazine, Synthroid, Singulair, and Tamiflu. ASSESSMENT AND PLAN: Mr. Faraz Zuñiga is an 87-year-old male came with sepsis, fever, hypothyroidism, diabetes mellitus, had leukocytosis, anemia, thrombocytopenia, renal insufficiency, myocardial infarction with positive troponin, and influenza type A and B. The patient is getting antibiotics, Tamiflu. Gastric prophylaxis. History of gastrointestinal bleed. Length of time discussion done with the daughter and son-in-law, Boom. All questions answered. Repeat labs. We will follow up. Appreciated Dr. Vail's input. Irasema Rivas MD
[2018-02-22] MEDS: Pantoprazole 20 mg EC Tab PO SCH (06:36)
[2018-02-22] MEDS: Levothyroxine 25 MCG TAB PO SCH (06:36)
[2018-02-22 06:56] LABS: ALB/GLOB RATIO 0.7 (1.1-1.8); ALBUMIN 2.5 g/dL (3.0-4.8); CALCIUM 9.4 mg/dL (8.4-10.5)
[2018-02-22 07:01] LABS: HEMOGLOBIN 7.8 g/dL (14.0-18.0); MEAN CELL VOLUME 84.2 fl (80.0-105.0); MEAN CORPUSCULAR HEMOGLOBIN 26.2 pg (25.0-35.0); MEAN CORPUSCULAR HGB CONC 31.1 g/dl (31.0-37.0); RBC 2.98 10^6/uL (3.5-6.1); RED CELL DISTRIBUTION WIDTH 17.7 % (11.5-14.5); WHITE BLOOD COUNT 13.4 10^3/uL (4.5-11.0)
[2018-02-22] MEDS: Arformoterol 15 mcg/2 ml Inh Sol IH SCH ×2 (07:27→20:54)
[2018-02-22] MEDS: Budesonide 0.25 mg/2 ml Inhal Susp UD IH SCH (07:28)
[2018-02-22 08:51] LABS: PLATELET COUNT 113 10^3/uL (120.0-450.0)
[2018-02-22] MEDS: diltiaZEM 180 mg/24 Hours CD Cap PO SCH (10:26)
--- NOTE | 2018-02-22 12:20 | PN ---
DATE: 02/22/2018 REFERRING PHYSICIAN: Irasema Rivas MD SUBJECTIVE: The patient is sitting up in bed, no acute distress. No headache, rhinitis, shortness of breath, chest pain, abdominal pain, nausea, vomiting, diarrhea, leg pain or leg swelling reported. The patient does report occasional cough, unable to expectorate sputum. OBJECTIVE: VITAL SIGNS: Blood pressure 120/56, pulse 90, temperature 97.9 and oxygen saturation 97% on 2 liters oxygen. GENERAL: No acute distress. HEENT: Moist mucous membranes. NECK: Supple. No JVD. CHEST: Positive rhonchi bilaterally. No wheezing audible. CARDIOVASCULAR: S1 and S2, audible. ABDOMEN: Soft. No distention. No tenderness. No organomegaly. EXTREMITIES: No bilateral edema. NEUROLOGIC: Awake, alert, verbal and follows simple commands. LABORATORY DATA: Reviewed. WBC 13.4, RBC 2.98, hemoglobin 7.8, hematocrit 25 and platelets 113. Sodium 141, potassium 4.3, chloride 105, carbon dioxide 30, anion gap of 11, BUN 65, creatinine 3.4, GFR is 21, random glucose 106, calcium 9.4, magnesium 2.3, total bilirubin 0.5, AST 24, ALT 26, alkaline phosphatase 110, total protein 6, albumin 2.5, globulin 3.5 and albumin-globulin ratio 0.7. MEDICATIONS: Reviewed. Tylenol 650 mg p.o. every 4 hours p.r.n. for mild pain, Tylenol 650 mg every 4 hours p.r.n. for fever, DuoNeb 3 mL inhalation every 4 hours p.r.n., Brovana 15 mcg inhalation every 12 hours, aspirin 81 mg p.o. daily, Pulmicort 0.5 mg inhalation every 12 hours, daptomycin 600 mg every 48 hours, diltiazem 110 mg daily, Lasix 40 mg IV daily, hydralazine 10 mg p.o. daily as needed, isosorbide mononitrate 30 mg p.o. daily, levothyroxine 25 mcg daily, Namenda 10 mg daily, Singulair 10 mg daily, Tamiflu 30 mg every other day, Protonix 20 mg in the morning and Flomax 0.8 mg daily. IMPRESSION AND PLAN: Sepsis, leukocytosis, anemia, thrombocytopenia, renal insufficiency, possible myocardial infarction with positive troponin, currently being treated for influenza, urinary tract infection, history of gastrointestinal bleed, blood cultures positive for methicillin-resistant Staphylococcus aureus. CT scan of the chest prior showed decrease in bilateral pleural effusions. We will need repeat CT scan to assess effusions. If effusions did not resolve, the patient may need thoracentesis. We will continue to monitor BUN and creatinine. We will order labs for the morning. This patient was seen and examined with Dr. Vail. Discussed assessment and plan as described above. We will follow with you. Cornel Collins APN Radha Vail MD [facility]
--- NOTE | 2018-02-22 14:16 | CP.PCM.PN ---
<Elisa Lombardo - Last Filed: 02/22/18 14:10> Subjective - Date & Time of Evaluation Date of Evaluation: 02/22/18 Time of Evaluation: 09:00 - Subjective Subjective: ID Progress Note - Dr. Lubin Patient was seen and examined at bedside. Pt found resting comfortably after having eaten some of his breakfast. Arousable and conversing appropriately. No acute complaints at this time. No acute or adverse events overnight as per nursing staff. Pt denied fever, chills, shortness of breath, chest pains, abdominal pains, nausea, vomiting, diarrhea, constipation or urinary symptoms. Objective - Vital Signs/Intake and Output Vital Signs (last 24 hours): Temp Pulse Resp BP Pulse Ox 99.5 F 90 18 125/68 97 02/22/18 12:00 02/22/18 12:00 02/22/18 12:00 02/22/18 12:00 02/22/18 06:00 Intake and Output: 02/22/18 02/22/18 06:59 18:59 Intake Total 120 Output Total 300 Balance -180 - Medications Medications: Current Medications Acetaminophen (Tylenol 325mg Tab) 650 mg PO Q4H PRN PRN Reason: Pain, Mild (1-3) Acetaminophen (Tylenol 325mg Tab) 650 mg PO Q4H PRN PRN Reason: Fever >100.5 F Albuterol/Ipratropium (Duoneb 3 Mg/0.5 Mg (3 Ml) Ud) 3 ml IH Q4 PRN PRN Reason: Shortness of Breath Arformoterol Tartrate (Brovana) 15 mcg IH [id number] [facility] Last Admin: 02/22/18 07:27 Dose: 15 mcg Aspirin (Ecotrin) 81 mg PO DAILY [facility] Last Admin: 02/22/18 10:26 Dose: 81 mg Budesonide (Pulmicort Respules) 0.25 mg IH [id number] [facility] Last Admin: 02/22/18 07:28 Dose: 0.25 mg Diltiazem HCl (Cardizem Cd) 180 mg PO DAILY [facility] Last Admin: 02/22/18 10:26 Dose: 180 mg Furosemide (Lasix) 40 mg IV DAILY [facility] Last Admin: 02/22/18 10:26 Dose: 40 mg Hydralazine HCl (Apresoline) 10 mg PO DAILY PRN PRN Reason: Systolic Blood Pressure >170 Daptomycin 600 mg/ Sodium (Chloride) 100 mls @ 200 mls/hr IV Q48H [facility] Stop: 03/07/18 10:01 Last Admin: 02/21/18 10:47 Dose: 200 mls/hr Isosorbide Mononitrate (Imdur Er) 30 mg PO DAILY [facility] Last Admin: 02/22/18 10:27 Dose: 30 mg Levothyroxine Sodium (Synthroid) 25 mcg PO 0600 [facility] Last Admin: 02/22/18 06:36 Dose: 25 mcg Memantine (Namenda) 10 mg PO DAILY [facility] Last Admin: 02/22/18 10:27 Dose: 10 mg Montelukast Sodium (Singulair) 10 mg PO DAILY [facility] Last Admin: 02/22/18 10:27 Dose: 10 mg Oseltamivir Phosphate (Tamiflu Cap) 30 mg PO QOTHERDAY [facility]; Protocol Last Admin: 02/22/18 10:32 Dose: 30 mg Pantoprazole Sodium (Protonix Ec Tab) 20 mg PO 0600 [facility] Last Admin: 02/22/18 06:36 Dose: 20 mg Tamsulosin HCl (Flomax) 0.8 mg PO DAILY [facility] Last Admin: 02/22/18 10:26 Dose: 0.8 mg - Labs Labs: 02/22/18 06:00 02/22/18 06:00 PT 16.6 SECONDS (9.4-12.5) H 02/19/18 18:04 INR 1.45 02/19/18 18:04 APTT 25.0 Seconds (25.1-36.5) L 02/19/18 18:04 - Constitutional Appears: No Acute Distress - Head Exam Head Exam: ATRAUMATIC, NORMAL INSPECTION, NORMOCEPHALIC - Eye Exam Eye Exam: EOMI, Normal appearance, PERRL Pupil Exam: NORMAL ACCOMODATION, PERRL - ENT Exam ENT Exam: Mucous Membranes Dry - Respiratory Exam Respiratory Exam: Decreased Breath Sounds, NORMAL BREATHING PATTERN - Cardiovascular Exam Cardiovascular Exam: REGULAR RHYTHM, +S1, +S2. absent: Murmur - GI/Abdominal Exam GI & Abdominal Exam: Soft, Normal Bowel Sounds. absent: Tenderness Assessment and Plan - Assessment and Plan (Free Text) Assessment: 87 M with a PMHx of CHF, GI bleed, anemia, chronic renal failure, CABG, Afib and COPD that [place] [facility] with complaints of AMS, shortness of breath, chest discomfort and lethargy as per detention that transferred him. Sepsis AMS resolved Hx of Methicillin-resistant Staph aureus bacteremia R/O pacemaker infection, on top of ESBL E. coli UTI, in this patient with MRSA bacteremia from 12/30/2017 iron deficiency anemia dyslipidemia COPD CAD S/P CABG with severe ischemic cardiomyopathy S/P pacemaker placement HTN pulmonary HTN Plan Daptomycin q48h for this patient with sepsis due to persistent MRSA bacteremia rule out pacemaker infection. Strongly recommend ANDRE since the bacteremia has been persistent and recurrent since December 2017 despite being on proper antibiotics. Will repeat blood cx pending. awaiting final sent and culture of MRSA in blood, flu iso <Eyad Lubin S - Last Filed: 02/22/18 16:53> Objective - Vital Signs/Intake and Output Vital Signs (last 24 hours): Temp Pulse Resp BP Pulse Ox 99.5 F 90 18 125/68 97 02/22/18 12:00 02/22/18 12:00 02/22/18 12:00 02/22/18 12:00 02/22/18 06:00 Intake and Output: 02/22/18 02/22/18 06:59 18:59 Intake Total 120 Output Total 300 Balance -180 - Medications Medications: Current Medications Acetaminophen (Tylenol 325mg Tab) 650 mg PO Q4H PRN PRN Reason: Pain, Mild (1-3) Acetaminophen (Tylenol 325mg Tab) 650 mg PO Q4H PRN PRN Reason: Fever >100.5 F Albuterol/Ipratropium (Duoneb 3 Mg/0.5 Mg (3 Ml) Ud) 3 ml IH Q4 PRN PRN Reason: Shortness of Breath Arformoterol Tartrate (Brovana) 15 mcg IH [id number] [facility] Last Admin: 02/22/18 07:27 Dose: 15 mcg Aspirin (Ecotrin) 81 mg PO DAILY [facility] Last Admin: 02/22/18 10:26 Dose: 81 mg Budesonide (Pulmicort Respules) 0.25 mg IH [id number] [facility] Last Admin: 02/22/18 07:28 Dose: 0.25 mg Diltiazem HCl (Cardizem Cd) 180 mg PO DAILY [facility] Last Admin: 02/22/18 10:26 Dose: 180 mg Furosemide (Lasix) 40 mg IV DAILY [facility] Last Admin: 02/22/18 10:26 Dose: 40 mg Hydralazine HCl (Apresoline) 10 mg PO DAILY PRN PRN Reason: Systolic Blood Pressure >170 Daptomycin 600 mg/ Sodium (Chloride) 100 mls @ 200 mls/hr IV Q48H [facility] Stop: 03/07/18 10:01 Last Admin: 02/21/18 10:47 Dose: 200 mls/hr Isosorbide Mononitrate (Imdur Er) 30 mg PO DAILY [facility] Last Admin: 02/22/18 10:27 Dose: 30 mg Levothyroxine Sodium (Synthroid) 25 mcg PO 0600 [facility] Last Admin: 02/22/18 06:36 Dose: 25 mcg Memantine (Namenda) 10 mg PO DAILY [facility] Last Admin: 02/22/18 10:27 Dose: 10 mg Montelukast Sodium (Singulair) 10 mg PO DAILY [facility] Last Admin: 02/22/18 10:27 Dose: 10 mg Oseltamivir Phosphate (Tamiflu Cap) 30 mg PO QOTHERDAY [facility]; Protocol Last Admin: 02/22/18 10:32 Dose: 30 mg Pantoprazole Sodium (Protonix Ec Tab) 20 mg PO 0600 [facility] Last Admin: 02/22/18 06:36 Dose: 20 mg Tamsulosin HCl (Flomax) 0.8 mg PO DAILY [facility] Last Admin: 02/22/18 10:26 Dose: 0.8 mg - Labs Labs: 02/22/18 06:00 02/22/18 06:00 PT 16.6 SECONDS (9.4-12.5) H 02/19/18 18:04 INR 1.45 02/19/18 18:04 APTT 25.0 Seconds (25.1-36.5) L 02/19/18 18:04 Assessment and Plan - Assessment and Plan (Free Text) Assessment: Infectious diseases Attending Physician Attestation Patient seen and examined, discussed with medical billing representative. I have reviewed the patient's history of present illness, past medical, social, personal and family histories, pertinent physical exam findings, course so far in this hospital admission, pertinent laboratory and imaging results. I agree with the above findings, assessment and plan. In addition, will continue Daptomycin for this patient with sepsis due to persistent and recurrent MRSA bacteremia, R/O p acemaker infection. Bacteremia has been recurrent since 2017. Discussed with Dr. Woodward - patient has multiple co-morbidities and poor condition, that ANDRE may be difficult and dangerous. Would recommend indefinite antibiotic therapy. Overall prognosis is poor.
--- NOTE | 2018-02-22 15:20 | PN ---
DATE: 02/22/2018 REASON FOR CONSULTATION: Followup, CHF, coronary artery disease, persistent bacteremia, rule out endocarditis. SUBJECTIVE: The patient lying flat, lethargic on waking. Denies any chest pain, shortness of breath or any palpitation. PHYSICAL EXAMINATION: GENERAL: Not in apparent distress. VITAL SIGNS: Temperature afebrile, heart rate 81, blood pressure 119/58. HEENT: PERRLA. Extraocular muscles intact. NECK: Supple. No carotid bruit or thyromegaly. CHEST: Clear to auscultation. HEART: S1 and S2 regular. ABDOMEN: Soft. EXTREMITIES: Clubbing and cyanosis negative. LABORATORY DATA: WBC 13.4, hemoglobin 7.8, hematocrit 25.1, platelet count 113. Chemistry showed sodium 141, potassium 4.3, chloride 105, carbon dioxide 30, anion gap of 11, BUN 6, creatinine 0.4. Blood culture shows MRSA positive. ASSESSMENT AND PLAN: An 87-year-old male with past medical history significant for atrial fibrillation, chronic obstructive pulmonary disease, coronary artery bypass grafting, severely decreased left ventricular function to 20%, admitted with altered mental status, persistently bacteremic. Transesophageal echocardiography was suggested and recommended by Infectious Disease. The patient is high risk for transesophageal echocardiography because of the perforation and also if they find the vegetation, the patient will not be a candidate for open heart surgery. benefit ratio, we decided to treat the patient medically as unproven undocumented endocarditis. Discussed with this morning for trying to treat the patient for four to six weeks of intravenous antibiotics. As mentioned, the patient is high risk for perforation and he is really not cooperative and also difficulty in swallowing. Aggressive medical treatment. Overall, the patient's condition is critical. Long-term prognosis is guarded. Consider do not resuscitate/do not intubate also. Discussed with family. Thank you Dr. Rivas for providing us the opportunity in taking care of patient, Yogesh Ruth. Radha Woodward MD
--- NOTE | 2018-02-23 03:21 | PN ---
DATE: 02/22/2018 SUBJECTIVE: The patient was seen and examined at bedside on 02/22/2018. Looking comfortable. No nausea, vomiting, or diarrhea. No hematuria or hematochezia. No headache. No dizziness. No chest pain. No palpitation. He is not very cooperative for review of system. Sometimes coughing, having shortness of breath. PHYSICAL EXAMINATION: VITAL SIGNS: Blood pressure 120/56, pulse 90, temperature 97.9, oxygen saturation 97% on 2 L nasal cannula. HEENT: Head normocephalic, atraumatic. Eyes; PERRLA. Extraocular muscles are intact. Conjunctivae clear. Nose patent. Mucous membranes moist. NECK: Supple. No carotid bruit. No JVD or thyromegaly. CHEST: Bilaterally symmetrical. HEART: S1 and S2 positive. LUNGS: Clear to auscultation. ABDOMEN: Soft. Bowel sounds present. No organomegaly. EXTREMITIES: No edema. No cyanosis. NEUROLOGIC: The patient is awake and alert. Moving all four extremities. No focal deficits. LABORATORY DATA: White blood cells 13.6, hemoglobin 7.8, hematocrit 25. Sodium 141, potassium 4.3, BUN 54, creatinine 3.4, calcium 9.4, magnesium 2.3, AST 24, ALT 26. MEDICATIONS: Tylenol, DuoNeb, Brovana, Pulmicort, diltiazem, Lasix, hydralazine, levothyroxine, Namenda, Singulair, Tamiflu, Protonix. ASSESSMENT AND PLAN: Mr. Faraz Zuñiga 87-year-old male with multiple medical problems has sepsis, leukocytosis, thrombocytopenia, anemia, renal insufficiency, myocardial infarction with positive troponin currently being treated for influenza, urinary tract infection, history of gastroesophageal reflux disease, gastrointestinal bleeding; blood cultures positive for methicillin-resistant Staphylococcus aureus. As per Infectious Disease, the patient needed transesophageal echocardiogram. As per Cardiology, the patient is a high risk for transesophageal echocardiogram, so should be treated for endocarditis. Bilateral pleural effusion, we need repeat CAT scan to assess the effusion. If effusion does not resolve, the patient may need thoracentesis . Gastrointestinal and deep venous thrombosis prophylaxes. Repeat labs. Out of bed. Physical therapy. Irasema Rivas MD [facility] # [id number] [place]
[2018-02-23] MEDS: Budesonide 0.25 mg/2 ml Inhal Susp UD IH SCH (07:43)
[2018-02-23] MEDS: Arformoterol 15 mcg/2 ml Inh Sol IH SCH (07:43)
[2018-02-23 08:38] LABS: BASO # 0.01 K/mm3 (0.0-2.0); BASO % 0.1 % (0.0-3.0); GRAN # 11.81 (1.4-6.5); GRAN % 84.6 % (50.0-68.0); HEMOGLOBIN 7.9 g/dL (14.0-18.0); LYMPH # 1.1 (1.2-3.4); MEAN CORPUSCULAR HEMOGLOBIN 25.8 pg (25.0-35.0); MEAN CORPUSCULAR HGB CONC 30.4 g/dl (31.0-37.0); MEAN PLATELET VOLUME 10.7 fl (7.0-11.0); MONO % 7.3 % (1.0-6.0); RBC 3.06 10^6/uL (3.5-6.1); RED CELL DISTRIBUTION WIDTH 17.7 % (11.5-14.5)
[2018-02-23] MEDS: Pantoprazole 20 mg EC Tab PO SCH (08:53)
[2018-02-23] MEDS: Levothyroxine 25 MCG TAB PO SCH (08:53)
[2018-02-23 09:01] LABS: ALB/GLOB RATIO 0.7 (1.1-1.8); ALBUMIN 2.8 g/dL (3.0-4.8); CALCIUM 9.5 mg/dL (8.4-10.5)
[2018-02-23] MEDS: diltiaZEM 180 mg/24 Hours CD Cap PO SCH (09:21)
--- NOTE | 2018-02-23 10:19 | CP.PCM.PN ---
Subjective - Date & Time of Evaluation Date of Evaluation: 02/23/18 Time of Evaluation: 06:55 - Subjective Subjective: Awake, no distress, comfortable Reason for consultation and follow up:Cardiac evaluation of CHF and coronary artery disease, recurrent bacteremia, Seen and examined by me and Objective - Vital Signs/Intake and Output Vital Signs (last 24 hours): Temp Pulse Resp BP Pulse Ox 97.3 F L 84 20 123/44 L 97 02/23/18 06:00 02/23/18 09:21 02/23/18 06:00 02/23/18 09:21 02/23/18 06:00 Intake and Output: 02/23/18 02/23/18 06:59 18:59 Intake Total 600 Output Total 850 Balance -250 - Medications Medications: Current Medications Acetaminophen (Tylenol 325mg Tab) 650 mg PO Q4H PRN PRN Reason: Pain, Mild (1-3) Last Admin: 02/22/18 22:44 Dose: 650 mg Acetaminophen (Tylenol 325mg Tab) 650 mg PO Q4H PRN PRN Reason: Fever >100.5 F Albuterol/Ipratropium (Duoneb 3 Mg/0.5 Mg (3 Ml) Ud) 3 ml IH Q4 PRN PRN Reason: Shortness of Breath Arformoterol Tartrate (Brovana) 15 mcg IH [id number] [facility] Last Admin: 02/23/18 07:43 Dose: 15 mcg Aspirin (Ecotrin) 81 mg PO DAILY [facility] Last Admin: 02/23/18 09:22 Dose: 81 mg Budesonide (Pulmicort Respules) 0.25 mg IH [id number] [facility] Last Admin: 02/23/18 07:43 Dose: 0.25 mg Diltiazem HCl (Cardizem Cd) 180 mg PO DAILY [facility] Last Admin: 02/23/18 09:21 Dose: 180 mg Furosemide (Lasix) 40 mg IV DAILY [facility] Last Admin: 02/23/18 09:21 Dose: 40 mg Hydralazine HCl (Apresoline) 10 mg PO DAILY PRN PRN Reason: Systolic Blood Pressure >170 Daptomycin 600 mg/ Sodium (Chloride) 100 mls @ 200 mls/hr IV Q48H [facility] Stop: 03/07/18 10:01 Last Admin: 02/21/18 10:47 Dose: 200 mls/hr Isosorbide Mononitrate (Imdur Er) 30 mg PO DAILY [facility] Last Admin: 02/23/18 09:21 Dose: 30 mg Levothyroxine Sodium (Synthroid) 25 mcg PO 0600 [facility] Last Admin: 02/23/18 08:53 Dose: Not Given Memantine (Namenda) 10 mg PO DAILY [facility] Last Admin: 02/23/18 09:23 Dose: 10 mg Montelukast Sodium (Singulair) 10 mg PO DAILY [facility] Last Admin: 02/23/18 09:21 Dose: 10 mg Oseltamivir Phosphate (Tamiflu Cap) 30 mg PO QOTHERDAY [facility]; Protocol Last Admin: 02/22/18 10:32 Dose: 30 mg Pantoprazole Sodium (Protonix Ec Tab) 20 mg PO 0600 [facility] Last Admin: 02/23/18 08:53 Dose: Not Given Tamsulosin HCl (Flomax) 0.8 mg PO DAILY [facility] Last Admin: 02/23/18 09:21 Dose: 0.8 mg - Labs Labs: 02/23/18 08:15 02/23/18 08:15 PT 16.6 SECONDS (9.4-12.5) H 02/19/18 18:04 INR 1.45 02/19/18 18:04 APTT 25.0 Seconds (25.1-36.5) L 02/19/18 18:04 - Constitutional Appears: Non-toxic, No Acute Distress - Head Exam Head Exam: NORMAL INSPECTION, NORMOCEPHALIC - Eye Exam Eye Exam: Normal appearance - ENT Exam ENT Exam: Mucous Membranes Dry - Respiratory Exam Respiratory Exam: Decreased Breath Sounds, NORMAL BREATHING PATTERN - Cardiovascular Exam Cardiovascular Exam: +S1, +S2 Additional comments: PPM/AICD - GI/Abdominal Exam GI & Abdominal Exam: Soft, Normal Bowel Sounds - Exam Additional comments: sol catheter - Neurological Exam Neurological Exam: Alert, Awake - Psychiatric Exam Psychiatric exam: Normal Affect, Normal Mood - Skin Skin Exam: Normal Color, Warm Assessment and Plan - Assessment and Plan (Free Text) Assessment: An 87 year old male who came from [facility] due to altered mental status, chest pain and shortness of breath. History of GI bleed, anemia, chronic renal failure, coronary artery disease post CABG, Afib and COPD, systolic dysfunction CHF. Elevated troponin 0.29/0.28. Echo done 11/6/18 LVEF 15-25%, Trace AR/MR, moderate TR RVSP 75 mmHg,moderate to severe pulmonary hypertension. Will treat medically for now for elevated troponin. No cardiac catheterization for now due to renal insufficiency. Denies chest pain now. ANDRE was not done from previous admission due to severe dementia and agitation due to risk of perforation.Consult was called again to evaluate and possible ANDRE to rule out endocarditis due to recurrent bacteremia. Patient is so deconditioned with multiple co-morbidities that risk outweighs the benefit of ANDRE. Patient is not a candidate to undergo any surgery. Dr. Woodward discussed with ID. ID will continue antibiotic regimen. Plan: Denies chest pain,No distress Heart rate stable Blood pressure stable Bacteremia, ID on consult Continue antibiotics as per ID On ASA 81 mg daily, Cardizem 180 mg daily, Lasix 40 mg daily, Imdur ER 30 mg daily,Synthroid 25 mcg daily,Flomax 0.8 mg daily Continue current medications Continue current treatment Will follow up Plan and treatment discussed with Dr. Jacobson
[2018-02-23] MEDS: DAPTOmycin 600 MG in Sodium Chloride 0.9% 100 ML IV SCH (13:56)
[2018-02-23] MEDS: Sodium Chloride 0.9% 1,000 ML IV SCH (13:58)
--- NOTE | 2018-02-24 02:16 | PN ---
DATE: 02/23/2018 SUBJECTIVE: The patient is in bed, in no acute distress. He was seen earlier this morning in room 277, overall weak in poor condition. PHYSICAL EXAMINATION: VITAL SIGNS: Temperature is 99, blood pressure is 130/50, respiratory rate 20, heart rate 93. HEENT: Unremarkable. NECK: Supple. LUNGS: Decreased breath sounds. HEART: Normal S1 and S2. ABDOMEN: Soft. LABORATORY DATA: Reveals a white count of 14,000, hemoglobin of 7, and platelets of 122. Coagulations noted. BUN is 70, creatinine 3.1. Procalcitonin is 2.42. Urinalysis is noted. Serology is noted. Microbiology reveals a Gram-positive cocci. Repeat blood cultures positive cultures of MRSA bacteremia. Review of orders reveals the patient is on daptomycin. ASSESSMENT AND PLAN: This is an 87-year-old male who was seen earlier this morning with congestive heart failure, gastrointestinal bleed, chronic renal failure, coronary artery bypass graft, atrial fibrillation, chronic obstructive lung disease, shelter treatment with automatic implantable cardioverter-defibrillator with sepsis with methicillin-resistant Staphylococcus aureus bacteremia, must rule out underlying endocarditis, pacemaker infection, currently on daptomycin. Repeat blood cultures are still positive. I discussed with Dr. Jacobson, repeat blood cultures and should have an echocardiogram. Most likely ideally would need . We will order a transthoracic echocardiogram at this time. Overall prognosis is quite poor. Repeat the blood cultures again. pacemaker removal. Thor Fairbanks MD
--- NOTE | 2018-02-24 04:14 | PN ---
DATE: 02/23/2018 SUBJECTIVE: The patient is an 87-year-old male. The patient was seen and examined at the bedside on 02/23/2018. Looking comfortable. No fever. No chills. No hematuria. No hematochezia. No swelling of the legs. No chest pain. No palpitation. No headache. No dizziness. PHYSICAL EXAMINATION: VITAL SIGNS: Temperature 99.1, pulse 93, blood pressure 130/50 and respiratory rate 20. HEENT: Head; normocephalic and atraumatic. Eyes; PERRLA. Extraocular muscles are intact. Conjunctivae clear. Nose patent. NECK: Supple. No carotid bruit, JVD or thyromegaly. CHEST: Bilaterally symmetrical. HEART: S1 and S2 positive. LUNGS: Clear to auscultation. ABDOMEN: Soft. Bowel sounds present. No organomegaly. EXTREMITIES: No edema. No cyanosis. NEUROLOGIC: The patient is awake and alert. Moving all 4 extremities. No focal deficits. MEDICATIONS: Hydralazine, Brovana, Cardizem, NS, aspirin, Flomax, Imdur, Lasix, Namenda, Protonix, Pulmicort, Singulair, Synthroid, Tamiflu, and Tylenol. LABORATORY DATA: White blood cells 14, hemoglobin 7.9, hematocrit 26, and platelets 123. Sodium 141, potassium 4.2, BUN 70, creatinine 3.1, and magnesium 2.3. ASSESSMENT AND PLAN: Mr. Faraz Zuñiga is an 87-year-old male with multiple medical problems with leukocytosis, anemia, history of thrombocytopenia, renal insufficiency, hypermagnesemia, proteinuria, hematuria, bilirubinuria, urinary tract infection, and influenza type A and B is negative. According to Infectious Disease, the patient has sepsis. 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 Bacteremia has been recurrent since 12/2017. Discussion done with Infectious Disease. The patient had multiple comorbidities and poor condition. The transesophageal echocardiogram may be difficult and dangerous. We will recommend indefinite antibiotic therapy. Overall prognosis is poor. The patient has myocardial infarction with positive troponin. Got treatment for influenza. History of gastrointestinal bleeding. CT scan of the chest done showed bilateral pleural effusion. According to the liquor maker, effusion will not decrease, the patient need thoracentesis. Meanwhile, continue present treatment. Discussion done with Dr. Vail's nurse practitioner and nursing staff. Repeat labs. We will follow up. Irasema Rivas MD
[2018-02-24] MEDS: Levothyroxine 25 MCG TAB PO SCH (06:00)
[2018-02-24 07:35] LABS: BASO # 0.01 K/mm3 (0.0-2.0); BASO % 0.1 % (0.0-3.0); EOS % 0.1 % (1.5-5.0); GRAN # 10.84 (1.4-6.5); GRAN % 86.7 % (50.0-68.0); HEMOGLOBIN 7.9 g/dL (14.0-18.0); LYMPH # 0.6 (1.2-3.4); LYMPH % 4.9 % (22.0-35.0); MEAN CELL VOLUME 84.6 fl (80.0-105.0); MEAN CORPUSCULAR HEMOGLOBIN 25.8 pg (25.0-35.0); MEAN CORPUSCULAR HGB CONC 30.5 g/dl (31.0-37.0); MEAN PLATELET VOLUME 11.4 fl (7.0-11.0); MONO % 8.2 % (1.0-6.0); PLATELET COUNT 142 10^3/uL (120.0-450.0); RBC 3.06 10^6/uL (3.5-6.1); RED CELL DISTRIBUTION WIDTH 17.7 % (11.5-14.5); WHITE BLOOD COUNT 12.5 10^3/uL (4.5-11.0)
[2018-02-24] MEDS: Pantoprazole 20 mg EC Tab PO SCH (08:03)
[2018-02-24] MEDS: Budesonide 0.25 mg/2 ml Inhal Susp UD IH SCH ×2 (08:07→20:51)
[2018-02-24] MEDS: Arformoterol 15 mcg/2 ml Inh Sol IH SCH ×2 (08:07→20:51)
[2018-02-24 08:16] LABS: ALB/GLOB RATIO 0.7 (1.1-1.8); ALBUMIN 2.7 g/dL (3.0-4.8); CALCIUM 9.5 mg/dL (8.4-10.5)
[2018-02-24 08:38] LABS: LYMPHOCYTE 9 % (22.0-35.0); MONOCYTE 6 % (1.0-6.0); NEUTROPHIL 85 % (50.0-70.0); PLATELET ESTIMATE NORMAL (NORMAL)
--- NOTE | 2018-02-24 09:14 | CP.PCM.PN ---
Subjective - Date & Time of Evaluation Date of Evaluation: 02/24/18 Time of Evaluation: 06:35 - Subjective Subjective: Awake, no distress, comfortable, on isolation Reason for consultation and follow up:Cardiac evaluation of CHF and coronary artery disease, recurrent bacteremia, Seen and examined by me and Objective - Vital Signs/Intake and Output Vital Signs (last 24 hours): Temp Pulse Resp BP Pulse Ox 97.4 F L 96 H 20 141/66 97 02/24/18 06:00 02/24/18 06:00 02/24/18 06:00 02/24/18 06:00 02/24/18 06:00 Intake and Output: 02/24/18 02/24/18 06:59 18:59 Intake Total 1620 Output Total 1250 Balance 370 - Medications Medications: Current Medications Acetaminophen (Tylenol 325mg Tab) 650 mg PO Q4H PRN PRN Reason: Pain, Mild (1-3) Last Admin: 02/22/18 22:44 Dose: 650 mg Acetaminophen (Tylenol 325mg Tab) 650 mg PO Q4H PRN PRN Reason: Fever >100.5 F Albuterol/Ipratropium (Duoneb 3 Mg/0.5 Mg (3 Ml) Ud) 3 ml IH Q4 PRN PRN Reason: Shortness of Breath Arformoterol Tartrate (Brovana) 15 mcg IH [id number] [facility] Last Admin: 02/24/18 08:07 Dose: 15 mcg Aspirin (Ecotrin) 81 mg PO DAILY [facility] Last Admin: 02/23/18 09:22 Dose: 81 mg Budesonide (Pulmicort Respules) 0.25 mg IH [id number] [facility] Last Admin: 02/24/18 08:07 Dose: 0.25 mg Diltiazem HCl (Cardizem Cd) 180 mg PO DAILY [facility] Last Admin: 02/23/18 09:21 Dose: 180 mg Furosemide (Lasix) 20 mg IV DAILY [facility] Hydralazine HCl (Apresoline) 10 mg PO DAILY PRN PRN Reason: Systolic Blood Pressure >170 Daptomycin 600 mg/ Sodium (Chloride) 100 mls @ 200 mls/hr IV Q48H [facility] Stop: 03/07/18 10:01 Last Admin: 02/23/18 13:56 Dose: 200 mls/hr Sodium Chloride (Sodium Chloride 0.9%) 1,000 mls @ 75 mls/hr IV .[id number] [facility] Last Admin: 02/23/18 13:58 Dose: 75 mls/hr Isosorbide Mononitrate (Imdur Er) 30 mg PO DAILY [facility] Last Admin: 02/23/18 09:21 Dose: 30 mg Levothyroxine Sodium (Synthroid) 25 mcg PO 0600 [facility] Last Admin: 02/24/18 06:00 Dose: 25 mcg Memantine (Namenda) 10 mg PO DAILY [facility] Last Admin: 02/23/18 09:23 Dose: 10 mg Montelukast Sodium (Singulair) 10 mg PO DAILY [facility] Last Admin: 02/23/18 09:21 Dose: 10 mg Oseltamivir Phosphate (Tamiflu Cap) 30 mg PO QOTHERDAY [facility]; Protocol Last Admin: 02/22/18 10:32 Dose: 30 mg Pantoprazole Sodium (Protonix Ec Tab) 20 mg PO 0600 [facility] Last Admin: 02/24/18 08:03 Dose: 20 mg Tamsulosin HCl (Flomax) 0.8 mg PO DAILY [facility] Last Admin: 02/23/18 09:21 Dose: 0.8 mg - Labs Labs: 02/24/18 06:30 02/24/18 06:30 PT 16.6 SECONDS (9.4-12.5) H 02/19/18 18:04 INR 1.45 02/19/18 18:04 APTT 25.0 Seconds (25.1-36.5) L 02/19/18 18:04 - Constitutional Appears: Non-toxic, No Acute Distress - Head Exam Head Exam: NORMAL INSPECTION, NORMOCEPHALIC - ENT Exam ENT Exam: Mucous Membranes Dry - Respiratory Exam Respiratory Exam: Decreased Breath Sounds, NORMAL BREATHING PATTERN - Cardiovascular Exam Cardiovascular Exam: +S1, +S2 Additional comments: PPM/AICD - GI/Abdominal Exam GI & Abdominal Exam: Soft, Normal Bowel Sounds - Neurological Exam Neurological Exam: Awake - Psychiatric Exam Psychiatric exam: Normal Affect, Normal Mood - Skin Skin Exam: Normal Color, Warm Assessment and Plan - Assessment and Plan (Free Text) Assessment: An 87 year old male who came from [facility] due to altered mental status, chest pain and shortness of breath. History of GI bleed, anemia, chronic renal failure, coronary artery disease post CABG, Afib and COPD, systolic dysfunction CHF. Elevated troponin 0.29/0.28. Echo done 01/22/18 LVEF 15-25%, Trace AR/MR, moderate TR RVSP 75 mmHg,moderate to severe pulmonary hypertension. Will treat medically for now for elevated troponin. No cardiac catheterization for now due to renal insufficiency. Denies chest pain now. ANDRE was not done from previous admission due to severe dementia and agitation due to risk of perforation.Consult was called again to evaluate and possible ANDRE to rule out endocarditis due to recurrent bacteremia. Patient is so deconditioned with multiple co-morbidities that risk outweighs the benefit of ANDRE. Patient is not a candidate to undergo any surgery. Dr. Woodward discussed with ID. ID will continue antibiotic regimen. Plan: No distress, on isolation precaution Denies chest pain Heart rate stable Blood pressure stable Bacteremia, ID on consult As request of ID, will repeat Echo Continue antibiotics as per ID On ASA 81 mg daily, Cardizem 180 mg daily, Lasix 40 mg daily, Imdur ER 30 mg daily,Synthroid 25 mcg daily,Flomax 0.8 mg daily Continue current medications Continue current treatment Nutritional support Will follow up Plan and treatment discussed with Dr. Jacobson
[2018-02-24] MEDS: diltiaZEM 180 mg/24 Hours CD Cap PO SCH (12:03)
--- NOTE | 2018-02-24 13:33 | PN ---
DATE: 02/24/2018 SUBJECTIVE: The patient is in bed, in no acute distress, nontoxic. PHYSICAL EXAMINATION VITAL SIGNS: Temperature is 98, blood pressure is 140/60, respiratory rate of 18. HEENT: Unremarkable. NECK: Supple. LUNGS: Decreased breath sounds. HEART: Normal S1, S2. ABDOMEN: Soft, nontender. LABORATORY DATA: Reveals white count of 12,500, hemoglobin of 7. Coagulation is noted. Chemistries reveals a BUN of 61, creatinine of 2.7. Procalcitonin is 2.42. Urinalysis is noted. Serology is noted. Microbiology reveals blood cultures are positive for MRSA. Repeat blood cultures are positive. It is oxacillin resistant with an TOBY of 1 for vancomycin. Review of orders reveals the repeat blood cultures from yesterday is pending and the patient is on daptomycin every 48 hours adjusted for renal disease. DIAGNOSTIC DATA: The patient has not had an echo. ASSESSMENT AND PLAN: An 87-year-old male with congestive heart failure and gastrointestinal bleeding, chronic renal failure, coronary artery bypass graft, atrial fibrillation, chronic obstructive lung disease, intermediate patient with an automatic implantable cardioverter defibrillator, admitted is sepsis with methicillin-resistant Staphylococcus aureus bacteremia which is persistent. All blood cultures are positive. Concerned about an infected pacemaker and we will check on the repeat blood cultures again on daptomycin with overall prognosis quite poor for this patient. Marely Padilla progress note representing Dr. Jacobson is reviewed and we will discuss with Cardiology. Thor Fairbanks MD
[2018-02-24] MEDS: Sodium Chloride 0.9% 1,000 ML IV SCH ×2 (17:32→17:33)
[2018-02-24] MEDS ORDERED: Metoprolol 1 mg/ml Inj IVP STA (20:11)
--- NOTE | 2018-02-24 21:25 | PN ---
DATE: 02/24/2018 SUBJECTIVE: The patient is an 87-year-old male. The patient was seen and examined at the bedside on 02/24/2018, looking comfortable. No change in the status. Awake and alert. Does not look like in distress. No fever. No chills. No hematuria or hematochezia. No headache or dizziness. PHYSICAL EXAMINATION VITAL SIGNS: Temperature 97.4, pulse 96, respiratory rate 20, blood pressure 140/66, pulse oximetry 97. HEENT: Head: Normocephalic, atraumatic. Eyes: PERRLA. Extraocular muscles are intact. Conjunctivae clear. Nose patent. Mucous membranes moist. NECK: Supple. No carotid bruit. No JVD or thyromegaly. CHEST: Bilaterally symmetrical. HEART: S1 and S2 positive. LUNGS: Clear to auscultation. ABDOMEN: Soft. Bowel sounds present. No organomegaly. EXTREMITIES: No edema. No cyanosis. NEUROLOGICAL: The patient is awake, alert. Follows simple commands. MEDICATIONS: Tylenol, DuoNeb, Brovana, aspirin, Cardizem, Lasix, daptomycin, Imdur, levothyroxine, Namenda, Singulair, Tamiflu, Protonix, Flomax. LABORATORY DATA: White blood cells 12.5, hemoglobin 7.9, hematocrit 25.9, platelets 142. Sodium 140, potassium 4.4, BUN 51, creatinine 2.7, glucose 101. ASSESSMENT AND PLAN: Mr. Faraz Zuñiga, 87-year-old male, with leukocytosis, anemia, renal insufficiency, has multiple medical problems, has congestive heart failure with gastroesophageal reflux, gastrointestinal bleeding, chronic renal failure, coronary artery bypass graft, atrial fibrillation, chronic obstructive lung disease, implantable cardioverter defibrillator, sepsis with methicillin-resistant Staphylococcus aureus bacteremia, which is persistent. All blood cultures are negative. Concerned about infected pacemaker, and we will check on the repeat blood cultures again, on daptomycin as per Infectious Disease with overall prognosis quite poor for the patient. Infectious Disease, Cardiology notes appreciated. Pulmonary notes appreciated. Repeat labs. We will follow up. Irasema Rivas MD [facility] # [id number]
--- NOTE | 2018-02-24 21:48 | PN ---
DATE: 02/24/2018 PULMONARY PROGRESS NOTE REFERRING PHYSICIAN: Dr. Rivas. SUBJECTIVE: He is lying in the bed, sleepy, arousable, more awake, alert than yesterday. No nausea, vomiting or diarrhea. No leg swelling. Has a Mann catheter, poor p.o. intake. PHYSICAL EXAMINATION VITAL SIGNS: Temperature is 98, heart rate 103, respiratory rate is 20, blood pressure 132/86, pulse ox 97%, 3 liters nasal cannula. HEENT: Moist mucous membranes. Crowded airway. Mallampati score is 4. NECK: Supple. No JVD. CARDIOPULMONARY: S1 and S2. LUNGS: Have a few crackles and rhonchi. ABDOMEN: Soft, nontender. No organomegaly. EXTREMITIES: No edema. NEUROLOGIC: Sleepy, arousable. Follows simple command. LABORATORY DATA: Shows hemoglobin 7.9, hematocrit 25.9, WBC 12.5, platelet count is 142. Sodium 140, potassium 4.4, chloride 106, bicarbonate 30, BUN 61, creatinine 2.7, glucose 101, calcium is 9.5. AST 31, ALT 20, alk phos is 115, albumin is 2.7, procalcitonin 2.42. Blood culture has staph aureus. MEDICATIONS: He is on hydralazine 10 mg p.o. daily p.r.n.,Brovana inhaled twice a day, Cardizem CD 180 mg daily,daptomycin 600 mg every 48 hours, DuoNeb every 4 hours p.r.n., Ecotrin 81 mg daily Flomax 0.4 mg daily, Imdur ER 30 mg daily, Lasix 20 mg IV daily, Namenda 10 mg p.o. daily, Protonix 20 mg daily, Pulmicort inhaled twice a day, Singulair 10 mg daily, IV fluid normal saline 75 mL per hour, Synthroid 25 mcg daily, Tamiflu 30 mg daily, Tylenol p.r.n. basis. IMPRESSION AND PLAN: Bacteremia, bilateral pleural effusion, chronic lung disease, cardiomyopathy, cardiac diastolic dysfunction and systolic dysfunction, history of paroxysmal atrial fibrillation, pulmonary hypertension, coronary artery disease, hyperlipidemia, history of gastro-angiopathy, oropharyngeal dysphagia, modified diet. There is also positive component of sleep apnea syndrome, bladder outlet obstruction, BPH. Pulmonary point of view, doing okay. Continue bronchodilator. Keep head at 45 degrees. Antibiotics as per Infectious Disease, also being followed by Cardiology. Diuretics is on hold, basically I think he is a very poor p.o. intake. Follow up labs in the morning. Gastric prophylaxis, deep venous thrombosis prophylaxis. Thank you and we will follow with you. Radha Vail MD
[2018-02-25] MEDS: Sodium Chloride 0.9% 1,000 ML IV SCH ×2 (05:32→13:47)
[2018-02-25] MEDS: Levothyroxine 25 MCG TAB PO SCH (05:32)
[2018-02-25] MEDS: Pantoprazole 20 mg EC Tab PO SCH (05:33)
[2018-02-25 06:04] LABS: HEMOGLOBIN 8.7 g/dL (14.0-18.0); MEAN CELL VOLUME 84.9 fl (80.0-105.0); MEAN CORPUSCULAR HEMOGLOBIN 26.3 pg (25.0-35.0); MEAN PLATELET VOLUME 11.1 fl (7.0-11.0); RBC 3.31 10^6/uL (3.5-6.1); RED CELL DISTRIBUTION WIDTH 17.8 % (11.5-14.5); WHITE BLOOD COUNT 17.6 10^3/uL (4.5-11.0)
[2018-02-25 06:41] LABS: ALB/GLOB RATIO 0.7 (1.1-1.8); CALCIUM 9.8 mg/dL (8.4-10.5)
[2018-02-25] MEDS: Arformoterol 15 mcg/2 ml Inh Sol IH SCH ×2 (07:24→21:00)
[2018-02-25] MEDS: Budesonide 0.25 mg/2 ml Inhal Susp UD IH SCH ×2 (07:24→21:00)
--- NOTE | 2018-02-25 08:02 | PN ---
DATE: 02/23/2018 REFERRING PHYSICIAN: Dr. Rivas. SUBJECTIVE: The patient is sitting up in bed. No acute distress noted. No headache, rhinitis, shortness of breath, chest pain, abdominal pain, nausea, vomiting, leg pain, leg swelling reported. Occasional cough is reported. PHYSICAL EXAMINATION: GENERAL: No acute distress. VITAL SIGNS: Blood pressure 123/44, pulse 84, temperature 97.3, and oxygen saturation 97% on 3 liters nasal cannula. HEENT: Moist mucous membranes. NECK: Supple. No JVD CHEST: Positive rhonchi bilaterally. No audible wheeze. CARDIOVASCULAR: S1 and S2 audible. ABDOMEN: Soft. No distention. Nontender. No organomegaly. EXTREMITIES: No bilateral edema. NEUROLOGICAL: Awake, alert, verbal, and able to follow commands. LABORATORY DATA: Reviewed. WBC 14, RBC 3.06, hemoglobin 7.9, hematocrit 26, and platelets 122. Sodium 141, potassium 4.2, chloride 104, carbon dioxide 30, anion gap 12, BUN 70, creatinine 3.1, and GFR 23. Random glucose 108. Calcium 9.5, total bilirubin 0.6, AST 29, ALT 22, alkaline phosphatase 116, total troponin 6.8, albumin 2.8, globulin 4.0, and albumin globulin ratio is 0.7. MEDICATIONS: Reviewed. Tylenol 650 mg every 4 hours p.r.n. for mild pain. Tylenol 650 mg every 4 hours p.r.n. for fever, greater than 100.5, DuoNeb 3 mL inhalation every 4 hours p.r.n., Brovana 15 mcg inhalation every 12 hours, aspirin 81 mg p.o. daily, Pulmicort 0.25 mg inhalation every 12 hours, daptomycin 600 mg IV q. 48 hours, Cardizem 180 mg p.o. daily, Lasix 40 mg IV daily, hydralazine 10 mg p.o. daily p.r.n., isosorbide mononitrate 30 mg p.o. daily, Synthroid 25 mcg daily, Namenda 10 mg p.o. daily, Singulair 10 mg p.o. daily, Tamiflu 30 mg p.o. every other day, Protonix 20 mg p.o. daily and Flomax 0.8 mg daily. IMPRESSION AND PLAN: Sepsis, leukocytosis, anemia, thrombocytopenia, renal insufficiency, possible myocardial infarction with positive troponin, currently being treated for influenza, urinary tract infection, history of gastrointestinal bleed, blood cultures positive for methicillin-resistant Staphylococcus aureus, chronic lung disease, cardiomyopathy, cardiac diastolic dysfunction and systolic dysfunction, history of paroxysmal atrial fibrillation, pulmonary hypertension, coronary artery disease, hyperlipidemia, history of oropharyngeal dysphagia, may have sleep apnea syndrome, and endocarditis. Discussed case with Dr. Smyth. The patient will be treated for endocarditis. We will decrease Lasix to 20 mg daily, labs in the morning. We recommend speech therapy evaluation for possible oropharyngeal dysphagia. Recommend IV fluids. This patient was seen and examined with Dr. Vail. Discussed assessment and plan as described above. Thank you for this consult and we will follow with you. Cornel Collins APN Radha Vail MD ISAURA
--- NOTE | 2018-02-25 08:35 | PN ---
DATE: 02/24/2018 Detailed note has been already written by Marely Padilla. 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 So, I discussed the case with Dr. Fairbanks concerning about infected AICD pacemaker site, so the patient is not a good candidate for ANDRE because of dementia, so we will do a transthoracic echo at this time to see if we find any vegetations and will continue present therapy. Detailed note has been written by Marely Padilla including medications and treatment. We will follow with you. Radha Jacobson MD
[2018-02-25] MEDS: MEROPENEM 500 MG in NS 500 MG/50 ML BAG IVPB SCH (10:47)
[2018-02-25] MEDS: diltiaZEM 180 mg/24 Hours CD Cap PO SCH (10:49)
--- NOTE | 2018-02-25 11:05 | RAD ---
Date of service: 02/25/2018 HISTORY: effusion COMPARISON: Comparison is made with 02/19/2018 FINDINGS: LUNGS: Again noted are patchy opacities and reticular densities in the lungs likely related to pulmonary congestion. Interval mild worsening of right lower lobe opacity since the previous exam may represent atelectasis or aspiration. PLEURA: Blunting of the right costophrenic angle likely due to small pleural effusion. Persistent homogeneous opacity at left lower chest likely represent combination of atelectasis and left pleural effusion. CARDIOVASCULAR: No aortic atherosclerotic calcification present. The heart is enlarged. No pulmonary vascular congestion. OSSEOUS STRUCTURES: No significant abnormalities. Status post sternotomy. VISUALIZED UPPER ABDOMEN: Normal. OTHER FINDINGS: None. IMPRESSION: Persistent reticular opacities in the lungs likely due to pulmonary congestion. Right lung opacity may represent atelectasis. Otherwise no interval changes.
[2018-02-25] MEDS ORDERED: Barium Sulfate Susp 2.1% w/v, 2.0% w/w 450 mL Bottle PO ONE (11:23)
--- NOTE | 2018-02-25 13:31 | PN ---
PULMONARY PROGRESS NOTE DATE: 02/25/2018 REFERRING PHYSICIAN: Irasema Rivas MD SUBJECTIVE: The patient is sitting up in bed. No acute distress. No reported headache, rhinitis, cough, shortness of breath, chest pain, abdominal pain, nausea, vomiting, leg pain or leg swelling reported. The patient has poor p.o. intake. OBJECTIVE: VITAL SIGNS: Blood pressure 139/64, pulse rate 115, temperature 102.1 and oxygen saturation 90%. GENERAL: No acute distress. HEENT: Moist mucous membranes. Crowded airway. Mallampati score 4. NECK: Supple. No JVD. CARDIOVASCULAR: S1 and S2, audible. Tachycardic. LUNGS: Rhonchi bilaterally. Few crackles at bases. ABDOMEN: Soft and nontender. No distention. No organomegaly. EXTREMITIES: No bilateral lower extremity edema. NEUROLOGIC: Awake, alert, verbal and follows simple commands. LABORATORY DATA: Reviewed. WBC 17.6, RBC 3.31, hemoglobin 8.7, hematocrit 28 and platelets 152. Sodium 142, potassium 4.8, chloride 108, carbon dioxide 26, anion gap 13, BUN 63, creatinine 2.5, GFR 30, random glucose 132, calcium 9.8, total bilirubin 1.6, AST 74, ALT 33, alkaline phosphatase 187, total protein 7.3, albumin 3.0, globulin 4.4 and albumin-globulin ratio 0.7. DIAGNOSTIC DATA: Chest x-ray and echocardiogram report pending. MEDICATIONS: Reviewed. Tylenol 650 mg every 4 hours p.r.n. for mild pain, Tylenol 650 mg every 4 hours p.r.n. fever greater than 100.5, DuoNeb 3 mL inhalation every 4 hours p.r.n., Brovana 15 mcg inhalation every 12 hours, aspirin 81 mg p.o. daily, Pulmicort 0.25 mg inhalation every 12 hours, daptomycin 600 mg every 48 hours, Cardizem 180 mg p.o. daily, Lasix 20 mg IV daily, hydralazine 100 mg p.o. daily p.r.n., isosorbide mononitrate 30 mg p.o. daily, Synthroid 25 mcg daily, Namenda 10 mg p.o. daily, meropenem 500 mg every 24 hours, Singulair 100 mg p.o. daily, Tamiflu 30 mg every other day, pantoprazole 20 mg daily, sodium chloride 0.9% IV and Flomax mg p.o. daily. IMPRESSION AND PLAN: Bacteremia, bilateral pleural effusion, chronic lung disease, cardiac diastolic dysfunction and systolic dysfunction, cardiomyopathy, history of paroxysmal atrial fibrillation, pulmonary hypertension, coronary artery disease, hyperlipidemia, oropharyngeal dysphagia, bladder outlet obstruction, benign prostatic hyperplasia, also component of sleep apnea syndrome. Pulmonary point of view, continue bronchodilators, keep head at bed elevated 45 degrees. Antibiotics as per Infectious Disease, Cardiology followup, gastric prophylaxis and deep venous thrombosis prophylaxis. This patient was seen and examined with Dr. Vail. Discussed assessment and plan as described above. Thank you for this consult and we will follow with you. Cornel Collins APN Radha Vail MD
[2018-02-25] MEDS: DAPTOmycin 600 MG in Sodium Chloride 0.9% 100 ML IV SCH (13:46)
--- NOTE | 2018-02-25 17:21 | CP.PCM.PN ---
<Elisa Lombardo - Last Filed: 02/25/18 17:15> Subjective - Date & Time of Evaluation Date of Evaluation: 02/25/18 Time of Evaluation: 10:30 - Subjective Subjective: ID Progress Note - Dr. Lubin Patient was seen and examined at bedside. Pt found resting comfortably. Arousable and conversing appropriately. No acute complaints at this time. No acute or adverse events overnight as per nursing staff. Objective - Vital Signs/Intake and Output Vital Signs (last 24 hours): Temp Pulse Resp BP Pulse Ox 98.1 F 86 18 99/40 L 90 L 02/25/18 12:00 02/25/18 14:00 02/25/18 12:00 02/25/18 12:00 02/25/18 06:00 Intake and Output: 02/25/18 02/25/18 06:59 18:59 Intake Total 1380 Output Total 450 Balance 930 - Medications Medications: Current Medications Acetaminophen (Tylenol 325mg Tab) 650 mg PO Q4H PRN PRN Reason: Pain, Mild (1-3) Last Admin: 02/22/18 22:44 Dose: 650 mg Acetaminophen (Tylenol 325mg Tab) 650 mg PO Q4H PRN PRN Reason: Fever >100.5 F Last Admin: 02/25/18 06:11 Dose: 650 mg Albuterol/Ipratropium (Duoneb 3 Mg/0.5 Mg (3 Ml) Ud) 3 ml IH Q4 PRN PRN Reason: Shortness of Breath Arformoterol Tartrate (Brovana) 15 mcg IH [id number] REPLACED BY [facility] Last Admin: 02/25/18 07:24 Dose: 15 mcg Aspirin (Ecotrin) 81 mg PO DAILY REPLACED BY [facility] Last Admin: 02/25/18 10:48 Dose: 81 mg Budesonide (Pulmicort Respules) 0.25 mg IH [id number] REPLACED BY [facility] Last Admin: 02/25/18 07:24 Dose: 0.25 mg Diltiazem HCl (Cardizem Cd) 180 mg PO DAILY REPLACED BY [facility] Last Admin: 02/25/18 10:49 Dose: 180 mg Furosemide (Lasix) 20 mg IV DAILY REPLACED BY [facility] Last Admin: 02/25/18 10:47 Dose: 20 mg Hydralazine HCl (Apresoline) 10 mg PO DAILY PRN PRN Reason: Systolic Blood Pressure >170 Daptomycin 600 mg/ Sodium (Chloride) 100 mls @ 200 mls/hr IV Q48H MARIUSZ Stop: 03/07/18 10:01 Last Admin: 02/25/18 13:46 Dose: 200 mls/hr Meropenem/Sodium Chloride (Merrem Iv 500 Mg/Ns 50 Ml) 500 mg in 50 mls @ 100 mls/hr IVPB Q24H MARIUSZ; Protocol Stop: 03/04/18 08:31 Last Admin: 02/25/18 10:47 Dose: 100 mls/hr Sodium Chloride (Sodium Chloride 0.9%) 1,000 mls @ 50 mls/hr IV .Q20H REPLACED BY [facility] Last Admin: 02/25/18 13:47 Dose: 50 mls/hr Isosorbide Mononitrate (Imdur Er) 30 mg PO DAILY REPLACED BY [facility] Last Admin: 02/25/18 10:48 Dose: 30 mg Levothyroxine Sodium (Synthroid) 25 mcg PO 0600 MARIUSZ Last Admin: 02/25/18 05:32 Dose: 25 mcg Memantine (Namenda) 10 mg PO DAILY REPLACED BY [facility] Last Admin: 02/25/18 10:48 Dose: 10 mg Montelukast Sodium (Singulair) 10 mg PO DAILY MARIUSZ Last Admin: 02/25/18 10:48 Dose: 10 mg Oseltamivir Phosphate (Tamiflu Cap) 30 mg PO QOTHERDAY REPLACED BY [facility]; Protocol Last Admin: 02/24/18 12:07 Dose: 30 mg Pantoprazole Sodium (Protonix Ec Tab) 20 mg PO 0600 REPLACED BY [facility] Last Admin: 02/25/18 05:33 Dose: 20 mg Tamsulosin HCl (Flomax) 0.8 mg PO DAILY REPLACED BY [facility] Last Admin: 02/25/18 10:47 Dose: 0.8 mg - Labs Labs: 02/25/18 05:30 02/25/18 05:30 PT 16.6 SECONDS (9.4-12.5) H 02/19/18 18:04 INR 1.45 02/19/18 18:04 APTT 25.0 Seconds (25.1-36.5) L 02/19/18 18:04 - Constitutional Appears: Chronically Ill - Head Exam Head Exam: ATRAUMATIC, NORMAL INSPECTION, NORMOCEPHALIC - Eye Exam Eye Exam: EOMI, Normal appearance, PERRL - ENT Exam ENT Exam: Mucous Membranes Moist, Normal Exam - Respiratory Exam Respiratory Exam: Clear to Ausculation Bilateral, NORMAL BREATHING PATTERN - Cardiovascular Exam Cardiovascular Exam: REGULAR RHYTHM, +S1, +S2. absent: Murmur - GI/Abdominal Exam GI & Abdominal Exam: Soft, Normal Bowel Sounds. absent: Tenderness - Neurological Exam Neurological Exam: Altered, Awake, CN II-XII Intact - Psychiatric Exam Psychiatric exam: Normal Affect, Normal Mood Assessment and Plan - Assessment and Plan (Free Text) Assessment: 87 M with a PMHx of CHF, GI bleed, anemia, chronic renal failure, CABG, Afib and COPD that presented to the [facility] with complaints of AMS, shortness of breath, chest discomfort and lethargy as per longterm that transferred him. Sepsis AMS Hx of Methicillin-resistant Staph aureus bacteremia R/O pacemaker infection, on top of ESBL E. coli UTI, in this patient with MRSA bacteremia from 12/30/2017 iron deficiency anemia dyslipidemia COPD CAD S/P CABG with severe ischemic cardiomyopathy S/P pacemaker placement HTN pulmonary HTN Plan Daptomycin q48h for this patient with sepsis due to persistent MRSA bacteremia rule out pacemaker infection. Likely source and consider replacement Strongly recommend ANDRE since the bacteremia has been persistent and recurrent since December 2017 despite being on proper antibiotics. Will repeat blood cx pending. followup cxr echo ct abd pelvis due to persistent fevers and leukocytosis <Eyad Lubin - Last Filed: 02/25/18 20:59> Objective - Vital Signs/Intake and Output Vital Signs (last 24 hours): Temp Pulse Resp BP Pulse Ox 99.1 F 73 18 118/74 90 L 02/25/18 17:51 02/25/18 17:51 02/25/18 17:51 02/25/18 17:51 02/25/18 06:00 Intake and Output: 02/25/18 02/26/18 18:59 06:59 Intake Total 600 Output Total 200 Balance 400 - Medications Medications: Current Medications Acetaminophen (Tylenol 325mg Tab) 650 mg PO Q4H PRN PRN Reason: Pain, Mild (1-3) Last Admin: 02/22/18 22:44 Dose: 650 mg Acetaminophen (Tylenol 325mg Tab) 650 mg PO Q4H PRN PRN Reason: Fever >100.5 F Last Admin: 02/25/18 06:11 Dose: 650 mg Albuterol/Ipratropium (Duoneb 3 Mg/0.5 Mg (3 Ml) Ud) 3 ml IH Q4 PRN PRN Reason: Shortness of Breath Arformoterol Tartrate (Brovana) 15 mcg IH [id number] REPLACED BY [facility] Last Admin: 02/25/18 07:24 Dose: 15 mcg Aspirin (Ecotrin) 81 mg PO DAILY REPLACED BY [facility] Last Admin: 02/25/18 10:48 Dose: 81 mg Budesonide (Pulmicort Respules) 0.25 mg IH [id number] REPLACED BY [facility] Last Admin: 02/25/18 07:24 Dose: 0.25 mg Diltiazem HCl (Cardizem Cd) 180 mg PO DAILY REPLACED BY [facility] Last Admin: 02/25/18 10:49 Dose: 180 mg Furosemide (Lasix) 20 mg IV DAILY REPLACED BY [facility] Last Admin: 02/25/18 10:47 Dose: 20 mg Hydralazine HCl (Apresoline) 10 mg PO DAILY PRN PRN Reason: Systolic Blood Pressure >170 Daptomycin 600 mg/ Sodium (Chloride) 100 mls @ 200 mls/hr IV Q48H REPLACED BY [facility] Stop: 03/07/18 10:01 Last Admin: 02/25/18 13:46 Dose: 200 mls/hr Meropenem/Sodium Chloride (Merrem Iv 500 Mg/Ns 50 Ml) 500 mg in 50 mls @ 100 mls/hr IVPB Q24H REPLACED BY [facility]; Protocol Stop: 03/04/18 08:31 Last Admin: 02/25/18 10:47 Dose: 100 mls/hr Sodium Chloride (Sodium Chloride 0.9%) 1,000 mls @ 50 mls/hr IV .Q20H REPLACED BY [facility] Last Admin: 02/25/18 13:47 Dose: 50 mls/hr Isosorbide Mononitrate (Imdur Er) 30 mg PO DAILY REPLACED BY [facility] Last Admin: 02/25/18 10:48 Dose: 30 mg Levothyroxine Sodium (Synthroid) 25 mcg PO 0600 REPLACED BY [facility] Last Admin: 02/25/18 05:32 Dose: 25 mcg Memantine (Namenda) 10 mg PO DAILY REPLACED BY [facility] Last Admin: 02/25/18 10:48 Dose: 10 mg Montelukast Sodium (Singulair) 10 mg PO DAILY REPLACED BY [facility] Last Admin: 12/10/18 10:48 Dose: 10 mg Oseltamivir Phosphate (Tamiflu Cap) 30 mg PO QOTHERDAY REPLACED BY [facility]; Protocol Last Admin: 02/24/18 12:07 Dose: 30 mg Pantoprazole Sodium (Protonix Ec Tab) 20 mg PO 0600 REPLACED BY [facility] Last Admin: 02/25/18 05:33 Dose: 20 mg Tamsulosin HCl (Flomax) 0.8 mg PO DAILY REPLACED BY [facility] Last Admin: 02/25/18 10:47 Dose: 0.8 mg - Labs Labs: 02/25/18 05:30 02/25/18 05:30 PT 16.6 SECONDS (9.4-12.5) H 02/19/18 18:04 INR 1.45 02/19/18 18:04 APTT 25.0 Seconds (25.1-36.5) L 02/19/18 18:04 Assessment and Plan - Assessment and Plan (Free Text) Assessment: Infectious diseases Attending Physician Attestation Patient seen and examined, discussed with medical device assembler. I have reviewed the patient's history of present illness, past medical, social, personal and family histories, pertinent physical exam findings, course so far in this hospital admission, pertinent laboratory and imaging results. I agree with the above findings, assessment and plan. In addition, will continue Daptomycin for this patient with sepsis due to persistent and recurrent MRSA bacteremia,suspicious for pacemaker infection. Bacteremia has been recurrent since 2017. Discussed with Dr. Woodward and Dr. Jacobson - patient has multiple co-morbidities and poor condition, that ANDRE may be difficult and dangerous. Would recommend indefinite antibiotic therapy. Would also recommend removal of pacemaker when feasible and discussed with Dr. Jacobson that without removing pacemaker, we will not achieve cure and his bacteremia will be persistent and/or recurrent. Added Merrem for now with new onset SIRS R/O other source of sepsis - will repeat blood cx, urine cx, CXR. Overall prognosis is poor and the persistent bacteremia will add to this poor prognosis.
--- NOTE | 2018-02-25 17:45 | CT ---
Date of service: 02/25/2018 PROCEDURE: CT Abdomen and Pelvis without intravenous contrast HISTORY: rule out abscess COMPARISON: 02/19/2018. TECHNIQUE: Unenhanced. Neither IV nor oral contrast administered Radiation dose: Total exam DLP = 846.95 mGy-cm. This CT exam was performed using one or more of the following dose reduction techniques: Automated exposure control, adjustment of the mA and/or kV according to patient size, and/or use of iterative reconstruction technique. FINDINGS: LOWER THORAX: Increase in right pleural effusion, decrease in left pleural effusion, improved aeration left lower lobe. LIVER: Unremarkable. No gross lesion or ductal dilatation. GALLBLADDER AND BILE DUCTS: Cholelithiasis without CT evidence of acute cholecystitis. PANCREAS: Unremarkable. No gross lesion or ductal dilatation. SPLEEN: Unremarkable. ADRENALS: Unremarkable. No mass. KIDNEYS AND URETERS: Unremarkable. No hydronephrosis. No solid mass. VASCULATURE: Atherosclerotic calcification and mural plaque present. 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 BOWEL: Unremarkable. No obstruction. No gross mural thickening. APPENDIX: Unremarkable. Normal appendix. PERITONEUM: Trace pelvic free fluid. No free air. LYMPH NODES: Unremarkable. No enlarged lymph nodes. BLADDER: Air-fluid level in the urinary bladder consistent with recent instrumentation. REPRODUCTIVE: Unremarkable. BONES: No acute fracture. OTHER FINDINGS: The Mann catheter balloon appears to be within the intra prostatic urethra, unchanged compared to the prior study. This should be repositioned IMPRESSION: Improperly placed Mann catheter. The balloon appears to be in the intra prostatic urethra and should be repositioned. I communicated this verbally to the nurse involved in the care and management of this patient at the time of this interpretation. Is Cholelithiasis without CT evidence of acute cholecystitis.
--- NOTE | 2018-02-25 17:53 | CARD ---
APPROVED REPORT Date of service: 02/25/2018 EXAM: Two-dimensional and M-mode echocardiogram with Doppler and color Doppler. INDICATION Infection:Rule out subacute bacterial endocarditis 2D DIMENSIONS Left Atrium (2D)4.8 (1.6-4.0cm)IVSd1.9 (0.7-1.1cm) LVDd5.7 (3.9-5.9cm)PWd1.0 (0.7-1.1cm) LVDs5.4 (2.5-4.0cm)FS (%) 5.6 % LVEF (%)12.4 (>50%) M-Mode DIMENSIONS Aortic Root3.40 (2.2-3.7cm)Aortic Cusp Exc.1.40 (1.5-2.0cm) Aortic Valve AoV Peak Lymtngjk603.0cm/Claudette Peak GR.10mmHg Mitral Valve E/A ratio0.0 TDI E/Lateral E'0.0E/Medial E'0.0 Tricuspid Valve TR Peak [id number]/sRAP [id number] Peak Gr.37mmHg [id number] LEFT VENTRICLE The Left Ventricle is mildly dilated. There is normal left ventricular wall thickness. The ejection fraction is severely impaired.EF-15-20% Multiple waqll abnormalities and severe global Hypokinesia. A fib No left ventricle thrombus noted on this study. There is no ventricular septal defect visualized. There is no left ventricular aneurysm. There is no mass noted in the left ventricle. RIGHT VENTRICLE The right ventricle is mildly dilated. There is normal right ventricular wall thickness. Systolic function is moderately reduced. There is a pacemaker lead in the right ventricle. ATRIA The left atrium is mildly dilated. The right atrium is mildly dilated. There is a catheter/pacemaker lead seen in the right atrium. The interatrial septum is intact with no evidence for an atrial septal defect. AORTIC VALVE The aortic valve is calcified but opens well. There is trace aortic regurgitation. There is no aortic valvular stenosis. There is no aortic valvular vegetation. MITRAL VALVE The mitral valve is thickened but opens well. Mitral regurgitation is mild to moderate. There is no mitral valve stenosis. There is no evidence of mitral valve prolapse. TRICUSPID VALVE The tricuspid valve leaflets are thickened , but open well. There is moderate tricuspid regurgitation. There is no tricuspid valve stenosis. There is a highly mobile mass on the tricuspid valve. There is a moderate vegetation on the tricuspid valve. PULMONIC VALVE The pulmonic valve is borderline thickened. There is trace pulmonic valvular regurgitation. There is no pulmonic valvular stenosis. GREAT VESSELS The aortic root is normal in size. The ascending aorta is normal in size. The pulmonary artery is normal. The IVC is normal in size and collapses >50% with inspiration. PERICARDIAL EFFUSION There is no pleural effusion. There is no pericardial effusion. 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 PPM/AICD lead noted in RA/RV. 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
--- NOTE | 2018-02-25 19:35 | PN ---
DATE: 02/25/2018 REASON FOR CONSULTATION AND FOLLOWUP: Cardiac evaluation, altered mental status, persistent bacteremia, and possible removal of AICD. The patient denies any chest pain, shortness of breath, or any palpitation. OBJECTIVE: GENERAL: Not in apparent distress. VITAL SIGNS: Temperature 102, heart rate 94, and blood pressure 130/64. HEENT: PERRLA. Extraocular muscles intact. NECK: Supple. No carotid bruit or thyromegaly. CHEST: Clear to auscultation. HEART: S1 and S2 regular. ABDOMEN: Soft. EXTREMITIES: Clubbing and cyanosis negative. LABORATORY DATA: Blood workup as follows; WBC 17.6, hemoglobin 8.7, hemoglobin 28.1, and platelet count 152. Chemistry: Sodium 140, potassium 4.5, chloride 108, carbon dioxide 26, anion gap of 13, BUN 30, and creatinine 2.5. Microbiology shows persistently Gram-positive cocci methicillin-resistant Staphylococcus aureus. IMPRESSION: An 87-year-old male from [facility] brought with altered mental status secondary to sepsis, persistently bacteremic, history of coronary artery bypass graft, history of atrial fibrillation, chronic obstructive pulmonary disease, history of systolic dysfunction, and severely decreased left ventricular function. ANDRE was requested because of high risk, the patient had echo today. Now the concern is because of persistent bacteriemia, the patient needs defibrillator to be taken out due to the high risk. We will review the echo, we will discuss with [facility] for high risk removal of defibrillator. Interim, continue antibiotic. We will follow with you. The patient will be at high risk for invasive procedure. Thank you Dr. Rivas for providing us the opportunity in taking care of the patient, Faraz Zuñiga. Radha Woodward MD
[2018-02-26] MEDS: Levothyroxine 25 MCG TAB PO SCH (06:00)
[2018-02-26] MEDS: Pantoprazole 20 mg EC Tab PO SCH (06:00)
--- NOTE | 2018-02-26 07:13 | CP.PCM.PN ---
<Elisa Lombardo - Last Filed: 02/26/18 10:38> Subjective - Date & Time of Evaluation Date of Evaluation: 02/26/18 Time of Evaluation: 07:00 - Subjective Subjective: ID Progress Note - Dr. Lubin Patient was seen and examined at bedside. Pt found resting comfortably. AAOx1. No acute or adverse events overnight, as per nursing staff. Sol repositioned, tolerating po intake and moving bowels regularly. Objective - Vital Signs/Intake and Output Vital Signs (last 24 hours): Temp Pulse Resp BP Pulse Ox 97.1 F L 90 20 123/57 L 90 L 02/26/18 00:01 02/26/18 02:00 02/26/18 00:01 02/26/18 00:01 02/25/18 06:00 Intake and Output: 02/26/18 02/26/18 06:59 18:59 Intake Total 240 Output Total 400 Balance -160 - Medications Medications: Current Medications Acetaminophen (Tylenol 325mg Tab) 650 mg PO Q4H PRN PRN Reason: Pain, Mild (1-3) Last Admin: 02/22/18 22:44 Dose: 650 mg Acetaminophen (Tylenol 325mg Tab) 650 mg PO Q4H PRN PRN Reason: Fever >100.5 F Last Admin: 02/25/18 06:11 Dose: 650 mg Albuterol/Ipratropium (Duoneb 3 Mg/0.5 Mg (3 Ml) Ud) 3 ml IH Q4 PRN PRN Reason: Shortness of Breath Arformoterol Tartrate (Brovana) 15 mcg IH [id number] [facility] Last Admin: 02/25/18 21:00 Dose: 15 mcg Aspirin (Ecotrin) 81 mg PO DAILY [facility] Last Admin: 02/25/18 10:48 Dose: 81 mg Budesonide (Pulmicort Respules) 0.25 mg IH [id number] [facility] Last Admin: 02/25/18 21:00 Dose: 0.25 mg Diltiazem HCl (Cardizem Cd) 180 mg PO DAILY [facility] Last Admin: 02/25/18 10:49 Dose: 180 mg Furosemide (Lasix) 20 mg IV DAILY [facility] Last Admin: 02/25/18 10:47 Dose: 20 mg Hydralazine HCl (Apresoline) 10 mg PO DAILY PRN PRN Reason: Systolic Blood Pressure >170 Daptomycin 600 mg/ Sodium (Chloride) 100 mls @ 200 mls/hr IV Q48H [facility] Stop: 03/07/18 10:01 Last Admin: 02/25/18 13:46 Dose: 200 mls/hr Meropenem/Sodium Chloride (Merrem Iv 500 Mg/Ns 50 Ml) 500 mg in 50 mls @ 100 mls/hr IVPB Q24H [facility]; Protocol Stop: 03/04/18 08:31 Last Admin: 02/25/18 10:47 Dose: 100 mls/hr Sodium Chloride (Sodium Chloride 0.9%) 1,000 mls @ 50 mls/hr IV .Q20H [facility] Last Admin: 02/25/18 13:47 Dose: 50 mls/hr Isosorbide Mononitrate (Imdur Er) 30 mg PO DAILY [facility] Last Admin: 02/25/18 10:48 Dose: 30 mg Levothyroxine Sodium (Synthroid) 25 mcg PO 0600 [facility] Last Admin: 02/25/18 05:32 Dose: 25 mcg Memantine (Namenda) 10 mg PO DAILY [facility] Last Admin: 02/25/18 10:48 Dose: 10 mg Montelukast Sodium (Singulair) 10 mg PO DAILY [facility] Last Admin: 02/25/18 10:48 Dose: 10 mg Oseltamivir Phosphate (Tamiflu Cap) 30 mg PO QOTHERDAY [facility]; Protocol Last Admin: 02/24/18 12:07 Dose: 30 mg Pantoprazole Sodium (Protonix Ec Tab) 20 mg PO 0600 [facility] Last Admin: 02/25/18 05:33 Dose: 20 mg Tamsulosin HCl (Flomax) 0.8 mg PO DAILY [facility] Last Admin: 02/25/18 10:47 Dose: 0.8 mg - Labs Labs: 02/25/18 05:30 02/25/18 05:30 PT 16.6 SECONDS (9.4-12.5) H 02/19/18 18:04 INR 1.45 02/19/18 18:04 APTT 25.0 Seconds (25.1-36.5) L 02/19/18 18:04 - Constitutional Appears: Chronically Ill - Head Exam Head Exam: ATRAUMATIC, NORMAL INSPECTION, NORMOCEPHALIC - Eye Exam Eye Exam: EOMI, Normal appearance, PERRL - ENT Exam ENT Exam: Mucous Membranes Dry - Respiratory Exam Respiratory Exam: Decreased Breath Sounds - Cardiovascular Exam Cardiovascular Exam: RRR, +S1, +S2 - GI/Abdominal Exam GI & Abdominal Exam: Soft, Normal Bowel Sounds. absent: Tenderness - Neurological Exam Neurological Exam: Altered, Awake - Psychiatric Exam Psychiatric exam: Normal Affect, Normal Mood - Skin Skin Exam: Dry, Intact, Normal Color, Warm Assessment and Plan - Assessment and Plan (Free Text) Assessment: 87 M with a PMHx of CHF, GI bleed, anemia, chronic renal failure, CABG, Afib and COPD that presented to the [facility] with complaints of AMS, shortness of breath, chest discomfort and lethargy as per correction that transferred him. Sepsis persistent bacteremia AMS Hx of Methicillin-resistant Staph aureus bacteremia R/O pacemaker infection, on top of ESBL E. coli UTI, in this patient with MRSA bacteremia from 12/30/2017 iron deficiency anemia dyslipidemia COPD CAD S/P CABG with severe ischemic cardiomyopathy S/P pacemaker placement HTN pulmonary HTN Plan Added teflaro for persistent positive blood cx gm + bacteremia now with new onset SIRS R/O other source of sepsis - will repeat blood cx, urine cx, CXR.. Daptomycin q48h for this patient with sepsis due to persistent MRSA bacteremia. And tamiflu rule out pacemaker infection. Likely source and consider replacement, discussed with Cardio Strongly recommend ANDRE since the bacteremia has been persistent and recurrent since December 2017 despite being on proper antibiotics. Will repeat blood cx postive, ct abd pelvis noted cholelithiasis without cholecystitis and malpositioned sol Overall prognosis is poor and the persistent bacteremia will add to this poor prognosis. Seen reviewed and discussed with Dr. Lubin <Eyad Lubin - Last Filed: 02/26/18 17:24> Objective - Vital Signs/Intake and Output Vital Signs (last 24 hours): Temp Pulse Resp BP Pulse Ox 98.3 F 87 18 122/51 L 99 02/26/18 11:51 02/26/18 11:51 02/26/18 11:51 02/26/18 11:54 02/26/18 06:00 Intake and Output: 02/26/18 02/26/18 06:59 18:59 Intake Total 577 Output Total 400 Balance 177 - Medications Medications: Current Medications Acetaminophen (Tylenol 325mg Tab) 650 mg PO Q4H PRN PRN Reason: Pain, Mild (1-3) Last Admin: 02/22/18 22:44 Dose: 650 mg Acetaminophen (Tylenol 325mg Tab) 650 mg PO Q4H PRN PRN Reason: Fever >100.5 F Last Admin: 02/25/18 06:11 Dose: 650 mg Albuterol/Ipratropium (Duoneb 3 Mg/0.5 Mg (3 Ml) Ud) 3 ml IH Q4 PRN PRN Reason: Shortness of Breath Arformoterol Tartrate (Brovana) 15 mcg IH [id number] [facility] Last Admin: 02/26/18 09:08 Dose: 15 mcg Aspirin (Ecotrin) 81 mg PO DAILY [facility] Last Admin: 02/26/18 11:42 Dose: 81 mg Budesonide (Pulmicort Respules) 0.25 mg IH [id number] [facility] Last Admin: 02/26/18 09:08 Dose: 0.25 mg Diltiazem HCl (Cardizem Cd) 180 mg PO DAILY [facility] Last Admin: 02/26/18 11:49 Dose: 180 mg Furosemide (Lasix) 20 mg IV DAILY [facility] Last Admin: 02/26/18 11:54 Dose: 20 mg Hydralazine HCl (Apresoline) 10 mg PO DAILY PRN PRN Reason: Systolic Blood Pressure >170 Sodium Chloride (Sodium Chloride 0.9%) 1,000 mls @ 75 mls/hr IV .[id number] [facility] Last Admin: 02/26/18 11:55 Dose: 75 mls/hr Ceftaroline Fosamil 400 mg/ (Sodium Chloride) 100 mls @ 100 mls/hr IVPB Q12 [facility]; Protocol Stop: 03/05/18 10:46 Last Admin: 02/26/18 11:48 Dose: 100 mls/hr Isosorbide Mononitrate (Imdur Er) 30 mg PO DAILY [facility] Last Admin: 02/26/18 11:49 Dose: 30 mg Levothyroxine Sodium (Synthroid) 25 mcg PO 0600 [facility] Last Admin: 02/26/18 06:00 Dose: 25 mcg Memantine (Namenda) 10 mg PO DAILY [facility] Last Admin: 02/26/18 11:49 Dose: 10 mg Montelukast Sodium (Singulair) 10 mg PO DAILY [facility] Last Admin: 02/26/18 11:48 Dose: 10 mg Oseltamivir Phosphate (Tamiflu Cap) 30 mg PO QOTHERDAY [facility]; Protocol Last Admin: 02/26/18 11:48 Dose: 30 mg Pantoprazole Sodium (Protonix Ec Tab) 20 mg PO 0600 [facility] Last Admin: 02/26/18 06:00 Dose: 20 mg Tamsulosin HCl (Flomax) 0.8 mg PO DAILY [facility] Last Admin: 02/26/18 11:48 Dose: 0.8 mg - Labs Labs: 02/25/18 05:30 02/25/18 05:30 PT 16.6 SECONDS (9.4-12.5) H 02/19/18 18:04 INR 1.45 02/19/18 18:04 APTT 25.0 Seconds (25.1-36.5) L 02/19/18 18:04 Assessment and Plan - Assessment and Plan (Free Text) Assessment: Infectious diseases Attending Physician Attestation Patient seen and examined, discussed with medical claims specialist. I have reviewed the patient's history of present illness, past medical, social, personal and family histories, pertinent physical exam findings, course so far in this hospital admission, pertinent laboratory and imaging results. I agree with the above findings, assessment and plan. In addition, will continue Daptomycin and start Teflaro (possible synergy) for patient with persistent MRSA bacteremia with s epsis, suspicious for pacemaker infection. REcommend removal of pacemaker when feasible. Discussed this with Cardiology. OVerall prognosis is poor.
--- NOTE | 2018-02-26 08:21 | PN ---
DATE: 02/25/2018 SUBJECTIVE: The patient was seen and examined by bedside on 02/25/2018 and looking comfortable, but having fever, very fatigued and tired, lethargic. Physical therapy is at the bedside to give him bedside physical therapy. No hematuria or hematochezia. PHYSICAL EXAMINATION VITAL SIGNS: Temperature 102.1, pulse 94, blood pressure 108/50, pulse oximeter 92%. HEENT: Head; normocephalic, atraumatic. Eyes, PERRLA. Extraocular muscles intact. Conjunctivae clear. Nose patent. Mucous membrane moist. NECK: Supple, no carotid bruit. No JVD or thyromegaly. CHEST: Bilaterally symmetrical. HEART: S1, S2 positive. LUNGS: Positive crackles at the bases. ABDOMEN: Soft. Bowel sounds present. No organomegaly. EXTREMITIES: No edema, no cyanosis. NEUROLOGIC: The patient is awake, alert. Moving all four extremities. No focal deficit. MEDICATIONS: Hydralazine, Brovana, Cardizem, daptomycin, Ecotrin, Flomax, Imdur, Lasix, Namenda, Merrem, Protonix, Singulair, Synthroid, Tamiflu, Tylenol. LABORATORY DATA: White blood cell is 17.6, hemoglobin 8.7, hematocrit 28.1, platelets 152. Sodium 142, potassium 4.8, BUN 63, creatinine 2.5, glucose 132. ASSESSMENT AND PLAN: 87-year-old male with leukocytosis, anemia, history of thrombocytopenia, hyperchloremia, renal insufficiency, hyperglycemia, hypermagnesemia, abnormal liver function tests, looks like septic, proteinuria, hematuria, urinary tract infection. Chest x-ray done today. It showed persistent reticular opacities in the lungs likely due to pulmonary congestion, right lung opacity, may represent atelectasis, otherwise no interval change. Housetrailer Servicer, business continuity specialist, Infectious Disease is on the case. Has bacteremia, bilateral pleural effusion, cardiomyopathy, cardiac diastolic dysfunction, systolic dysfunction, history of paroxysmal atrial fibrillation, pulmonary hypertension, coronary artery disease, hypercholesterolemia, gastroesophageal reflux disease, oropharyngeal dysphagia, on modified diet, positive component of sleep apnea. Continue bronchodilators, antibiotics as per Infectious Disease. The patient needs actually transesophageal echocardiogram, but as per Cardiology, the patient is a high risk. They want us to treat the patient with antibiotics for, like, endocarditis. Gastric prophylaxis, deep venous thrombosis prophylaxis. We will follow up. Irasema Rivas MD MTDD
[2018-02-26] MEDS: Budesonide 0.25 mg/2 ml Inhal Susp UD IH SCH ×2 (09:08→19:56)
[2018-02-26] MEDS: Arformoterol 15 mcg/2 ml Inh Sol IH SCH ×2 (09:08→19:56)
[2018-02-26] MEDS: MEROPENEM 500 MG in NS 500 MG/50 ML BAG IVPB SCH (09:11)
--- NOTE | 2018-02-26 10:42 | CP.PCM.APN ---
Subjective - Date & Time of Evaluation Date of Evaluation: 02/26/18 Time of Evaluation: 10:38 - Subjective Subjective: pt seen resting in bed no acute distress Review of Systems - Constitutional Constitutional: Lethargy, Malaise Objective - Vital Signs/Intake and Output Vital Signs (last 24 hours): Temp Pulse Resp BP Pulse Ox 99.1 F 82 20 139/59 L 99 02/26/18 06:00 02/26/18 06:00 02/26/18 06:00 02/26/18 06:00 02/26/18 06:00 Intake and Output: 02/26/18 02/26/18 06:59 18:59 Intake Total 577 Output Total 400 Balance 177 - Medications Medications: Current Medications Acetaminophen (Tylenol 325mg Tab) 650 mg PO Q4H PRN PRN Reason: Pain, Mild (1-3) Last Admin: 02/22/18 22:44 Dose: 650 mg Acetaminophen (Tylenol 325mg Tab) 650 mg PO Q4H PRN PRN Reason: Fever >100.5 F Last Admin: 02/25/18 06:11 Dose: 650 mg Albuterol/Ipratropium (Duoneb 3 Mg/0.5 Mg (3 Ml) Ud) 3 ml IH Q4 PRN PRN Reason: Shortness of Breath Arformoterol Tartrate (Brovana) 15 mcg IH [id number] [facility] Last Admin: 02/26/18 09:08 Dose: 15 mcg Aspirin (Ecotrin) 81 mg PO DAILY [facility] Last Admin: 02/25/18 10:48 Dose: 81 mg Budesonide (Pulmicort Respules) 0.25 mg IH [id number] [facility] Last Admin: 02/26/18 09:08 Dose: 0.25 mg Diltiazem HCl (Cardizem Cd) 180 mg PO DAILY [facility] Last Admin: 02/25/18 10:49 Dose: 180 mg Furosemide (Lasix) 20 mg IV DAILY [facility] Last Admin: 02/25/18 10:47 Dose: 20 mg Hydralazine HCl (Apresoline) 10 mg PO DAILY PRN PRN Reason: Systolic Blood Pressure >170 Meropenem/Sodium Chloride (Merrem Iv 500 Mg/Ns 50 Ml) 500 mg in 50 mls @ 100 mls/hr IVPB Q24H [facility]; Protocol Stop: 03/04/18 08:31 Last Admin: 02/26/18 09:11 Dose: 100 mls/hr Sodium Chloride (Sodium Chloride 0.9%) 1,000 mls @ 50 mls/hr IV .Q20H [facility] Last Admin: 02/25/18 13:47 Dose: 50 mls/hr Isosorbide Mononitrate (Imdur Er) 30 mg PO DAILY [facility] Last Admin: 02/25/18 10:48 Dose: 30 mg Levothyroxine Sodium (Synthroid) 25 mcg PO 0600 [facility] Last Admin: 02/26/18 06:00 Dose: 25 mcg Memantine (Namenda) 10 mg PO DAILY [facility] Last Admin: 02/25/18 10:48 Dose: 10 mg Montelukast Sodium (Singulair) 10 mg PO DAILY [facility] Last Admin: 02/25/18 10:48 Dose: 10 mg Oseltamivir Phosphate (Tamiflu Cap) 30 mg PO QOTHERDAY [facility]; Protocol Last Admin: 02/24/18 12:07 Dose: 30 mg Pantoprazole Sodium (Protonix Ec Tab) 20 mg PO 0600 [facility] Last Admin: 02/26/18 06:00 Dose: 20 mg Tamsulosin HCl (Flomax) 0.8 mg PO DAILY [facility] Last Admin: 02/25/18 10:47 Dose: 0.8 mg - Labs Labs: 02/25/18 05:30 02/25/18 05:30 PT 16.6 SECONDS (9.4-12.5) H 02/19/18 18:04 INR 1.45 02/19/18 18:04 APTT 25.0 Seconds (25.1-36.5) L 02/19/18 18:04 - Constitutional Appears: No Acute Distress, Older Than Stated Age, Chronically Ill - Head Exam Head Exam: ATRAUMATIC, NORMOCEPHALIC - Eye Exam Eye Exam: Normal appearance - ENT Exam ENT Exam: Mucous Membranes Dry - Neck Exam Neck Exam: Normal Inspection - Respiratory Exam Respiratory Exam: Decreased Breath Sounds, Prolonged Expiratory Phase - Cardiovascular Exam Cardiovascular Exam: REGULAR RHYTHM, +S1, +S2 - GI/Abdominal Exam GI & Abdominal Exam: Normal Bowel Sounds - Extremities Exam Extremities Exam: Normal Capillary Refill - Neurological Exam Neurological Exam: Awake - Skin Skin Exam: Dry Assessment and Plan - Assessment and Plan (Free Text) Plan: A/P 87 yr old with pmh sig fo rchf, gi bleed, anemia, CRF, Afib, Copd, CABG/ AICD, hx MRSA bacteremai and e Coli UTI who was transferred from [facility] for lethargy, ams, sob and cp now undergoing workup for sepsis / pneumonia with ID consult on IV Daptomycin and Merrem with ID workup in progress including panculture Sw note , cardio notes rev'd ID consult noted regarding strong recommendation for ANDRE in setting of PPM and recurrent bacteremia spoke to shipping room helper re : ANDRE - per DR Woodward treat medically for endocarditis with 4 to 6 wks antibiotics w/o ANDRE due to risk/comorbidities. Spoke with ID - persistent recurent bacerteremia pt needs to continue on IV antibiotics or have ppm removed pt had ct adb that shows no acute findings discuss plan with cm and sw re antibiotic needed and facility for 4-6 wks treatment for persistent bacteremia presumably due to infected ppm- will analia duong on disposition on which facility can accept teflaro. Raysa Pizarro APN BPCI/TIC - BPCIA/TIC Flyers given, including CMS Beneficiary letter: Yes
[2018-02-26] MEDS: diltiaZEM 180 mg/24 Hours CD Cap PO SCH (11:49)
[2018-02-26] MEDS: Sodium Chloride 0.9% 1,000 ML IV SCH ×3 (11:55→23:30)
--- NOTE | 2018-02-26 12:17 | PN ---
DATE: 02/26/2018 SUBJECTIVE: The patient is sitting up in bed. No overnight events recorded. No hemoptysis, hematuria, hematosis, diarrhea reported. OBJECTIVE VITAL SIGNS: Blood pressure 139/59, pulse 70, temperature 99.1, and oxygen saturation 99% nasal cannula. GENERAL: No acute distress. HEENT: Dry mucous membranes. Crowded airway. Mallampati score 4. NECK: Supple. No JVD. CARDIOVASCULAR: S1 and S2, audible. LUNGS: Rhonchi bilaterally. Crackles at the bases. ABDOMEN: Soft and nontender. No distention. No organomegaly. EXTREMITIES: No bilateral lower extremity edema. NEUROLOGICAL: Awake, alert, verbal, follows simple commands. LABORATORY DATA: Reviewed. No new labs since yesterday. DIAGNOSTIC DATA: Chest x-ray shows persistent reticular opacities in the lungs likely due to pulmonary congestion. Right lung opacity may represent atelectasis, otherwise no interval changes. Echocardiogram, LV ejection fraction 12.4, RVSP 47, four-chamber dilatation, ejection fraction 15-20. PPM-AICD lead noted in RV, [id number] MR, moderate TR, trace AR/TI. Echogenic mobile structure attached to tricuspid valve consistent with vegetation, tricuspid valve endocarditis. MEDICATIONS: Reviewed. Tylenol 650 mg p.o. every 4 hours p.r.n. mild pain, Tylenol 650 mg every 4 hours p.r.n. fever greater than 100.5, DuoNeb 3 mL inhalation every 4 hours p.r.n., Brovana 15 mcg inhalation every 12 hours, aspirin 81 mg p.o. daily, Pulmicort 0.25 mg inhalation every 12 hours, Cardizem 100 mg daily, Lasix 20 mg IV daily, hydralazine 10 mg p.o. daily p.r.n., isosorbide mononitrate 30 mg p.o. daily, Synthroid 25 mcg p.o. daily, Namenda 10 mg p.o. daily, meropenem 500 mg daily, Singulair 10 mg daily, Tamiflu 30 mg every other day, Protonix 20 mg daily, sodium chloride 0.9% IV 50 mL per hour, and Flomax 0.5 mg p.o. daily. IMPRESSION AND PLAN: Bacteremia, bilateral pleural effusion, chronic lung disease, cardiac diastolic dysfunction and systolic dysfunction, cardiomyopathy, history of paroxysmal atrial fibrillation, pulmonary hypertension, coronary artery disease, hyperlipidemia, oropharyngeal dysphagia, endocarditis, bladder outlet obstruction, benign prostatic hyperplasia. Patient also has a component of sleep apnea syndrome. Pulmonary point of view, continue bronchodilators, head of bed elevated 45 degrees. Antibiotics per Infectious Disease, Cardiology followup, gastric prophylaxis and deep venous thrombosis prophylaxis. We will increase intravenous fluids to 75 mL per hour with labs in the morning. This patient was seen and examined with Dr. Vail. Discussed assessment and plan as described above. Thank you for this consult and we will follow with you. Cornel Collins APN Radha Vail MD [facility]
--- NOTE | 2018-02-26 15:39 | PN ---
DATE: 02/26/2018 REASON FOR CONSULTATION: Followup, cardiac evaluation, altered mental status, persistent bacteremia, tricuspid valve endocarditis, for removal of AICD. SUBJECTIVE: The patient is sitting at the bedside. Denies any chest pain, shortness of breath or any palpitation. PHYSICAL EXAMINATION: GENERAL: Not in apparent distress, much awake and alert. Discussed with the patient about pacemaker, AICD removal. He is not sure who did, he remembers the name of . I wanted to talk to his son, Shola Zuñiga. VITAL SIGNS: Temperature afebrile, heart rate 70, blood pressure 113/59. HEENT: PERRLA. Intact. NECK: Supple. No carotid bruit or thyromegaly. CHEST: Clear to auscultation. HEART: S1 and S2 regular. ABDOMEN: Soft. EXTREMITIES: Clubbing and cyanosis negative. LABORATORY DATA: Blood workup as follows: WBC 17.6, hemoglobin 8.3, hematocrit 28.1, platelet count 152. Chemistry showed sodium 140, potassium 4.8, chloride 108, carbon dioxide 26, anion gap of 13, BUN 16, creatinine 2.5. Blood culture persistent positive gram-positive cocci. IMPRESSION AND PLAN: An 87-year-old male with past medical history significant for coronary artery disease, coronary artery bypass graft, history of atrial fibrillation, chronic obstructive pulmonary disease, decreased left ventricular function, status post automatic implantable cardioverter-defibrillator. Repeat echocardiogram done yesterday, that revealed tricuspid valve endocarditis, vegetation noted attached to the tricuspid valve and at the same time automatic implantable cardioverter-defibrillator while the crossing, four chamber dilatation ejection fraction 15% to 20%, [id number] mitral regurgitation, moderate tricuspid regurgitation, right ventricular systolic pressure 47. Echocardiogram revealed mobile tricuspid valve consistent with vegetation, tricuspid valve endocarditis. reviewed for removal of automatic implantable cardioverter-defibrillator recommendation. Discussed with the patient's son, Shola Zuñiga, telephone number [phone], and mentioned the patient's comorbidity including renal insufficiency, four chamber dilated severe cardiomyopathy, but high risk case. Also I have placed a call to Dr. Hu, miter sawyer, for removal of automatic implantable cardioverter-defibrillator at [facility]. Awaiting for the response. If they accept the patient, we will transfer for removal of automatic implantable cardioverter-defibrillator though it will be very high risk and extremely dangerous, but the choices are limited because of persistent bacteremia, probably that is the way to go though considered to be a very high risk procedure. Discussed with as mentioned Shola Zuñiga, son, who is going to discuss among the family members. Further recommendation depends upon the acceptance of the patient if they accept. We will follow with you. Interim, continue antibiotics, continue Cardizem, continue isosorbide dinitrate. We will follow with you. Overall, the patient's condition is critical. 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 Should consider do not resuscitate also. Thank you Dr. Rivas for providing us the opportunity in taking care of patient, Yogesh Ruth. We will follow with you. Radha Woodward MD
--- NOTE | 2018-02-26 22:37 | PN ---
DATE: 02/26/2018 SUBJECTIVE: The patient is an 87-year-old male. The patient was seen and examined at the bedside on 02/26/2018, little bit lethargic, but not in acute distress. No event happened overnight. Mann was repositioned. Tolerating p.o. intake. No fever. No chills. No hematuria or hematochezia. No swelling of the legs. No chest pain. No palpitation. No headache or dizziness. PHYSICAL EXAMINATION VITAL SIGNS: Temperature 97.1, pulse 90, respiratory rate 20, blood pressure 120/57, pulse oximetry 90. HEENT: Head: Normocephalic, atraumatic. Eyes: PERRLA. Extraocular muscles are intact. Conjunctivae clear. Nose patent. Mucous membranes moist. NECK: Supple. No carotid bruit. No JVD or thyromegaly. CHEST: Bilaterally symmetrical. HEART: S1 and S2, positive. LUNGS: Clear to auscultation. ABDOMEN: Soft. Bowel sounds present. No organomegaly. EXTREMITIES: No edema. No cyanosis. NEUROLOGICAL: The patient is awake, little bit lethargic. Moving all 4 extremities. MEDICATIONS: Tylenol, DuoNeb, Brovana, Ecotrin, Pulmicort, Cardizem, Lasix, hydralazine, daptomycin, meropenem, Aranesp, isosorbide, levothyroxine, Namenda, Singulair, Tamiflu, Protonix. LABORATORY DATA: White blood cells 17.6, hemoglobin 8.7, hematocrit 28.1, platelets 152. Sodium 142, potassium 4.8, BUN 63, creatinine 2.5, glucose 132. ASSESSMENT AND PLAN: Mr. Faraz Zuñiga, 87-year-old male, with leukocytosis; anemia; hyperchloremia; renal insufficiency; hyperglycemia; history of congestive heart failure; gastrointestinal bleeding; chronic renal failure; coronary artery bypass graft; atrial fibrillation; has altered mental status; sepsis with persistent bacteremia; history of methicillin-resistant Staphylococcus aureus bacteremia, rule out pacemaker infection on the top of extended-spectrum beta-lactamase Escherichia coli urinary tract infection in the patient with methicillin-resistant Staphylococcus aureus bacteremia from 12/30/2017; iron deficiency; dyslipidemia; chronic obstructive pulmonary disease; coronary artery bypass graft; coronary artery disease; hypertension; pulmonary hypertension. Infectious Disease added Teflaro for persistent positive blood cultures plus bacteremia; now the new-onset systemic inflammatory response syndrome, rule out other source of sepsis. Repeat blood cultures, urine culture, septic workup. Daptomycin every 48 hours for this patient with sepsis. Due to persistent methicillin-resistant Staphylococcus aureus bacteremia, added Tamiflu. Rule out pacemaker infection, likely source of considered replacement. Infectious Disease is suggesting ANDRE since bacteremia has been persistent and recurrent since 12/2017, despite being on proper antibiotics. CT abdomen and pelvis noted cholelithiasis without cholecystitis and malpositioned Mann. Overall prognosis is poor. Continue present treatment. Repeat labs. We will follow up. Irasema Rivas MD MTDD
[2018-02-27] MEDS: Pantoprazole 20 mg EC Tab PO SCH (06:04)
[2018-02-27] MEDS: Levothyroxine 25 MCG TAB PO SCH (06:04)
[2018-02-27 07:09] LABS: BASO # 0.01 K/mm3 (0.0-2.0); BASO % 0.1 % (0.0-3.0); EOS % 0.2 % (1.5-5.0); GRAN # 11.3 (1.4-6.5); GRAN % 87.3 % (50.0-68.0); HEMOGLOBIN 7.2 g/dL (14.0-18.0); LYMPH # 0.6 (1.2-3.4); LYMPH % 4.8 % (22.0-35.0); MEAN CELL VOLUME 83.1 fl (80.0-105.0); MEAN CORPUSCULAR HEMOGLOBIN 25.9 pg (25.0-35.0); MEAN CORPUSCULAR HGB CONC 31.2 g/dl (31.0-37.0); MEAN PLATELET VOLUME 11.1 fl (7.0-11.0); MONO % 7.6 % (1.0-6.0); RBC 2.78 10^6/uL (3.5-6.1); RED CELL DISTRIBUTION WIDTH 17.9 % (11.5-14.5)
[2018-02-27 07:18] LABS: ALB/GLOB RATIO 0.6 (1.1-1.8); ALBUMIN 2.5 g/dL (3.0-4.8); CALCIUM 9.6 mg/dL (8.4-10.5)
--- NOTE | 2018-02-27 07:21 | CP.PCM.PN ---
<Elisa Lombardo - Last Filed: 02/27/18 13:21> Subjective - Date & Time of Evaluation Date of Evaluation: 02/27/18 Time of Evaluation: 07:00 - Subjective Subjective: ID Progress Note - Dr. Lubin Patient was seen and examined at bedside. Pt found resting comfortably. No acute or adverse events overnight, as per nursing staff. Sol in place, tolerating po intake and moving bowels regularly. R arm midline in place. No fevers overnight, slight congestion. Objective - Vital Signs/Intake and Output Vital Signs (last 24 hours): Temp Pulse Resp BP Pulse Ox 98 F 90 21 145/57 L 95 02/27/18 06:00 02/27/18 06:00 02/27/18 06:00 02/27/18 06:00 02/27/18 06:00 Intake and Output: 02/27/18 02/27/18 06:59 18:59 Intake Total 1029 Output Total 450 Balance 579 - Medications Medications: Current Medications Acetaminophen (Tylenol 325mg Tab) 650 mg PO Q4H PRN PRN Reason: Pain, Mild (1-3) Last Admin: 02/22/18 22:44 Dose: 650 mg Acetaminophen (Tylenol 325mg Tab) 650 mg PO Q4H PRN PRN Reason: Fever >100.5 F Last Admin: 02/25/18 06:11 Dose: 650 mg Albuterol/Ipratropium (Duoneb 3 Mg/0.5 Mg (3 Ml) Ud) 3 ml IH Q4 PRN PRN Reason: Shortness of Breath Arformoterol Tartrate (Brovana) 15 mcg IH [id number] [facility] Last Admin: 02/26/18 19:56 Dose: 15 mcg Aspirin (Ecotrin) 81 mg PO DAILY [facility] Last Admin: 02/26/18 11:42 Dose: 81 mg Budesonide (Pulmicort Respules) 0.25 mg IH [id number] [facility] Last Admin: 02/26/18 19:56 Dose: 0.25 mg Diltiazem HCl (Cardizem Cd) 180 mg PO DAILY [facility] Last Admin: 02/26/18 11:49 Dose: 180 mg Furosemide (Lasix) 20 mg IV DAILY [facility] Last Admin: 02/26/18 11:54 Dose: 20 mg Hydralazine HCl (Apresoline) 10 mg PO DAILY PRN PRN Reason: Systolic Blood Pressure >170 Sodium Chloride (Sodium Chloride 0.9%) 1,000 mls @ 75 mls/hr IV .[id number] [facility] Last Admin: 02/26/18 23:30 Dose: 75 mls/hr Ceftaroline Fosamil 400 mg/ (Sodium Chloride) 100 mls @ 100 mls/hr IVPB Q12 [facility]; Protocol Stop: 03/05/18 10:46 Last Admin: 02/27/18 01:04 Dose: 100 mls/hr Isosorbide Mononitrate (Imdur Er) 30 mg PO DAILY [facility] Last Admin: 02/26/18 11:49 Dose: 30 mg Levothyroxine Sodium (Synthroid) 25 mcg PO 0600 [facility] Last Admin: 02/27/18 06:04 Dose: 25 mcg Memantine (Namenda) 10 mg PO DAILY [facility] Last Admin: 02/26/18 11:49 Dose: 10 mg Montelukast Sodium (Singulair) 10 mg PO DAILY [facility] Last Admin: 02/26/18 11:48 Dose: 10 mg Oseltamivir Phosphate (Tamiflu Cap) 30 mg PO QOTHERDAY [facility]; Protocol Last Admin: 02/26/18 11:48 Dose: 30 mg Pantoprazole Sodium (Protonix Ec Tab) 20 mg PO 0600 [facility] Last Admin: 02/27/18 06:04 Dose: 20 mg Tamsulosin HCl (Flomax) 0.8 mg PO DAILY [facility] Last Admin: 02/26/18 11:48 Dose: 0.8 mg - Labs Labs: 02/25/18 05:30 02/25/18 05:30 PT 16.6 SECONDS (9.4-12.5) H 02/19/18 18:04 INR 1.45 02/19/18 18:04 APTT 25.0 Seconds (25.1-36.5) L 02/19/18 18:04 - Constitutional Appears: Chronically Ill - Head Exam Head Exam: ATRAUMATIC, NORMAL INSPECTION, NORMOCEPHALIC - Eye Exam Eye Exam: EOMI, Normal appearance, PERRL Pupil Exam: NORMAL ACCOMODATION, PERRL - ENT Exam ENT Exam: Mucous Membranes Dry - Respiratory Exam Respiratory Exam: Decreased Breath Sounds - Cardiovascular Exam Cardiovascular Exam: RRR, +S1, +S2 - GI/Abdominal Exam GI & Abdominal Exam: Soft, Normal Bowel Sounds. absent: Tenderness - Neurological Exam Neurological Exam: Altered - Psychiatric Exam Psychiatric exam: Normal Affect, Normal Mood - Skin Skin Exam: Dry, Intact, Normal Color, Warm Assessment and Plan - Assessment and Plan (Free Text) Assessment: 87 M with a PMHx of CHF, GI bleed, anemia, chronic renal failure, CABG, Afib and COPD that presented to the [facility] with complaints of AMS, shortness of breath, chest discomfort and lethargy as per fdc that transferred him. Sepsis persistent bacteremia AMS Hx of Methicillin-resistant Staph aureus bacteremia R/O pacemaker infection, on top of ESBL E. coli UTI, in this patient with MRSA bacteremia from 12/30/2017 iron deficiency anemia dyslipidemia COPD CAD S/P CABG with severe ischemic cardiomyopathy S/P pacemaker placement HTN pulmonary HTN Plan Added teflaro day 2 for persistent positive blood cx gm + bacteremia now with new onset SIRS R/O other source of sepsis - will repeat blood cx, urine cx, CXR.. Daptomycin q48h for this patient with sepsis due to persistent MRSA bacteremia. And tamiflu rule out pacemaker infection. Likely source and consider replacement, discussed with Cardio Strongly recommend ANDRE since the bacteremia has been persistent and recurrent since December 2017 despite being on proper antibiotics. Will repeat blood cx postive, ct abd pelvis noted cholelithiasis without cholecystitis and malpositioned sol, sol repositioned, R upper Midline in tact Overall prognosis is poor and the persistent bacteremia will add to this poor prognosis. Seen reviewed and discussed with Dr. Lubin <Eyad Lubin - Last Filed: 02/27/18 21:16> Objective - Vital Signs/Intake and Output Vital Signs (last 24 hours): Temp Pulse Resp BP Pulse Ox 97.9 F 80 20 145/66 95 02/27/18 18:00 02/27/18 18:00 02/27/18 18:00 02/27/18 18:00 02/27/18 06:00 Intake and Output: 02/27/18 02/28/18 18:59 06:59 Intake Total 0 Output Total 420 1100 Balance -420 -1100 - Medications Medications: Current Medications Acetaminophen (Tylenol 325mg Tab) 650 mg PO Q4H PRN PRN Reason: Pain, Mild (1-3) Last Admin: 02/27/18 10:08 Dose: 650 mg Acetaminophen (Tylenol 325mg Tab) 650 mg PO Q4H PRN PRN Reason: Fever >100.5 F Last Admin: 02/25/18 06:11 Dose: 650 mg Albuterol/Ipratropium (Duoneb 3 Mg/0.5 Mg (3 Ml) Ud) 3 ml IH Q4 PRN PRN Reason: Shortness of Breath Arformoterol Tartrate (Brovana) 15 mcg IH [id number] [facility] Last Admin: 02/27/18 07:45 Dose: 15 mcg Aspirin (Ecotrin) 81 mg PO DAILY [facility] Last Admin: 02/27/18 10:09 Dose: 81 mg Budesonide (Pulmicort Respules) 0.25 mg IH [id number] [facility] Last Admin: 02/27/18 07:45 Dose: 0.25 mg Diltiazem HCl (Cardizem Cd) 180 mg PO DAILY [facility] Last Admin: 02/27/18 10:09 Dose: 180 mg Furosemide (Lasix) 20 mg IV DAILY [facility] Last Admin: 02/27/18 10:06 Dose: 20 mg Hydralazine HCl (Apresoline) 10 mg PO DAILY PRN PRN Reason: Systolic Blood Pressure >170 Ceftaroline Fosamil 400 mg/ (Sodium Chloride) 100 mls @ 100 mls/hr IVPB Q12 [facility]; Protocol Stop: 03/05/18 10:46 Last Admin: 02/27/18 10:10 Dose: 100 mls/hr Daptomycin 650 mg/ Sodium (Chloride) 100 mls @ 200 mls/hr IV QOTHERDAY [facility] Stop: 03/04/18 10:01 Last Admin: 02/27/18 12:39 Dose: 200 mls/hr Sodium Chloride (Sodium Chloride 0.9%) 1,000 mls @ 40 mls/hr IV .Q24H [facility] Last Admin: 02/27/18 12:39 Dose: 40 mls/hr Isosorbide Mononitrate (Imdur Er) 30 mg PO DAILY [facility] Last Admin: 02/27/18 10:09 Dose: 30 mg Levothyroxine Sodium (Synthroid) 25 mcg PO 0600 [facility] Last Admin: 02/27/18 06:04 Dose: 25 mcg Memantine (Namenda) 10 mg PO DAILY [facility] Last Admin: 02/27/18 10:09 Dose: 10 mg Montelukast Sodium (Singulair) 10 mg PO DAILY [facility] Last Admin: 02/27/18 10:09 Dose: 10 mg Pantoprazole Sodium (Protonix Ec Tab) 20 mg PO 0600 [facility] Last Admin: 02/27/18 06:04 Dose: 20 mg Tamsulosin HCl (Flomax) 0.8 mg PO DAILY [facility] Last Admin: 02/27/18 10:08 Dose: 0.8 mg - Labs Labs: 02/27/18 10:20 02/27/18 06:30 PT 16.6 SECONDS (9.4-12.5) H 02/19/18 18:04 INR 1.45 02/19/18 18:04 APTT 25.0 Seconds (25.1-36.5) L 02/19/18 18:04 Assessment and Plan - Assessment and Plan (Free Text) Assessment: Infectious diseases Attending Physician Attestation Patient seen and examined, discussed with medical transcriber. I have reviewed the patient's history of present illness, past medical, social, personal and family histories, pertinent physical exam findings, course so far in this hospital admission, pertinent laboratory and imaging results. I agree with the above findings, assessment and plan. In addition, will continue DAptomycin and Ceftaroline for patient with persistent MRSA bacteremia, suspicious for pacemaker / AICD infection. Electrophysiology specialist has evaluated the patient, and may transfer patient to another facility to have the device removed. Repeat blood cx 02/26 is still positive - should have repeat tomorrow. If bacteremia persists without clearance, prognosis is poor - clearance might be achieved if pacemaker /ICD is removed.
[2018-02-27] MEDS: Arformoterol 15 mcg/2 ml Inh Sol IH SCH ×2 (07:45→21:10)
[2018-02-27] MEDS: Budesonide 0.25 mg/2 ml Inhal Susp UD IH SCH ×2 (07:45→21:10)
--- NOTE | 2018-02-27 09:44 | CP.PCM.APN ---
Subjective - Date & Time of Evaluation Date of Evaluation: 02/27/18 Time of Evaluation: 09:00 - Subjective Subjective: pt seen and examined at bedside pt reports sob Review of Systems - Respiratory Respiratory: Dyspnea on Exertion Objective - Vital Signs/Intake and Output Vital Signs (last 24 hours): Temp Pulse Resp BP Pulse Ox 98 F 90 21 145/57 L 95 02/27/18 06:00 02/27/18 06:00 02/27/18 06:00 02/27/18 06:00 02/27/18 06:00 Intake and Output: 02/27/18 02/27/18 06:59 18:59 Intake Total 1029 Output Total 450 Balance 579 - Medications Medications: Current Medications Acetaminophen (Tylenol 325mg Tab) 650 mg PO Q4H PRN PRN Reason: Pain, Mild (1-3) Last Admin: 02/22/18 22:44 Dose: 650 mg Acetaminophen (Tylenol 325mg Tab) 650 mg PO Q4H PRN PRN Reason: Fever >100.5 F Last Admin: 02/25/18 06:11 Dose: 650 mg Albuterol/Ipratropium (Duoneb 3 Mg/0.5 Mg (3 Ml) Ud) 3 ml IH Q4 PRN PRN Reason: Shortness of Breath Arformoterol Tartrate (Brovana) 15 mcg IH [id number] [facility] Last Admin: 02/27/18 07:45 Dose: 15 mcg Aspirin (Ecotrin) 81 mg PO DAILY [facility] Last Admin: 02/26/18 11:42 Dose: 81 mg Budesonide (Pulmicort Respules) 0.25 mg IH [id number] [facility] Last Admin: 02/27/18 07:45 Dose: 0.25 mg Diltiazem HCl (Cardizem Cd) 180 mg PO DAILY [facility] Last Admin: 02/26/18 11:49 Dose: 180 mg Furosemide (Lasix) 20 mg IV DAILY [facility] Last Admin: 02/26/18 11:54 Dose: 20 mg Hydralazine HCl (Apresoline) 10 mg PO DAILY PRN PRN Reason: Systolic Blood Pressure >170 Ceftaroline Fosamil 400 mg/ (Sodium Chloride) 100 mls @ 100 mls/hr IVPB Q12 [facility]; Protocol Stop: 03/05/18 10:46 Last Admin: 02/27/18 01:04 Dose: 100 mls/hr Daptomycin 650 mg/ Sodium (Chloride) 100 mls @ 200 mls/hr IV QOTHERDAY [facility] Stop: 03/04/18 10:01 Sodium Chloride (Sodium Chloride 0.9%) 1,000 mls @ 40 mls/hr IV .Q24H [facility] Isosorbide Mononitrate (Imdur Er) 30 mg PO DAILY [facility] Last Admin: 02/26/18 11:49 Dose: 30 mg Levothyroxine Sodium (Synthroid) 25 mcg PO 0600 [facility] Last Admin: 02/27/18 06:04 Dose: 25 mcg Memantine (Namenda) 10 mg PO DAILY [facility] Last Admin: 02/26/18 11:49 Dose: 10 mg Montelukast Sodium (Singulair) 10 mg PO DAILY [facility] Last Admin: 02/26/18 11:48 Dose: 10 mg Oseltamivir Phosphate (Tamiflu Cap) 30 mg PO QOTHERDAY [facility]; Protocol Last Admin: 02/26/18 11:48 Dose: 30 mg Pantoprazole Sodium (Protonix Ec Tab) 20 mg PO 0600 [facility] Last Admin: 02/27/18 06:04 Dose: 20 mg Tamsulosin HCl (Flomax) 0.8 mg PO DAILY [facility] Last Admin: 02/26/18 11:48 Dose: 0.8 mg - Labs Labs: 02/27/18 06:30 02/27/18 06:30 PT 16.6 SECONDS (9.4-12.5) H 02/19/18 18:04 INR 1.45 02/19/18 18:04 APTT 25.0 Seconds (25.1-36.5) L 02/19/18 18:04 - Constitutional Appears: No Acute Distress, Older Than Stated Age - Head Exam Head Exam: NORMAL INSPECTION, NORMOCEPHALIC - Eye Exam Eye Exam: EOMI Pupil Exam: PERRL - ENT Exam ENT Exam: Mucous Membranes Moist - Respiratory Exam Respiratory Exam: Decreased Breath Sounds Additional comments: elvis left ;lower bases very diminished - GI/Abdominal Exam GI & Abdominal Exam: Normal Bowel Sounds - Extremities Exam Extremities Exam: Normal Capillary Refill - Neurological Exam Neurological Exam: Alert, Oriented x3 - Psychiatric Exam Psychiatric exam: Normal Affect, Normal Mood - Skin Skin Exam: Dry, Intact, Warm Assessment and Plan - Assessment and Plan (Free Text) Plan: A/P 87 yr old with pmh sig fo rchf, gi bleed, anemia, CRF, Afib, Copd, CABG/ AICD, hx MRSA bacteremai and e Coli UTI who was transferred from [facility] for lethargy, ams, sob and cp now undergoing workup for sepsis / pneumonia with ID consult on IV Daptomycin and Merrem with ID workup in progress including panculture ID consult noted regarding strong recommendation for ANDRE in setting of PPM and recurrent bacteremia spoke to car painter re : ANDRE - per DR Woodward treat medically for endocarditis with 4 to 6 wks antibiotics w/o ANDRE due to risk/comorbidities. Spoke with ID - persistent recurrent bacteremia pt needs to continue on IV dapto and now teflaro or have ppm removed fo rpersistent bactermia /MRSA spoke to Dr Malone, I will interrogte ppm today and plan may be for removal due to persistent bactermia via tx to [place] if pt/ son agrees, Dr Malone spoke to pt son re : plan i spooke to frank goldberg the plan as well, I spoke to Dr Rivas re low h/H and resp status as well as my discussion with Dr malone will repeat h/h and transfuse if h/h still low 7s, will lower Ivf to 40 hr for continued renal perfusion and plan to dc if pt eats/drinks adequately , diet changed to soft continue iv lasix for left effusion will follow up with Dr Bonilla goldberg plan after interrgoation and son/patient decides on removal of ppm discuss with nurse Rice. Raysa Pizarro BPCI/TIC - BPCIA/TIC Flyers given, including CMS Beneficiary letter: Yes Pt/family verbalized understanding & agreed to program: Yes
[2018-02-27] MEDS ORDERED: DAPTOmycin 500 mg Inj (Cubicin) IV SCH (10:00)
[2018-02-27] MEDS: diltiaZEM 180 mg/24 Hours CD Cap PO SCH (10:09)
[2018-02-27 10:36] LABS: HEMOGLOBIN 7.3 g/dL (14.0-18.0)
--- NOTE | 2018-02-27 12:09 | PN ---
PULMONARY PROGRESS NOTE DATE: 02/27/2018 REFERRING PHYSICIAN: Irasema Rivas MD SUBJECTIVE: The patient is sitting up in bed. No overnight events reported. No hematuria, hematosis and hemoptysis, leg pain or leg swelling reported. The patient does report generalized body ache. No fever. No chills reported. OBJECTIVE: GENERAL: No acute distress. VITAL SIGNS: Blood pressure 140/67, pulse 98, temperature 98, and pulse saturation 95%. HEENT: Moist mucous membranes. Crowded airway. Mallampati score of 4. NECK: Supple. No JVD. CARDIOVASCULAR: S1 and S2, audible. LUNGS: Diminished breath sounds left base. Few rhonchi. ABDOMEN: Soft and nontender. No distention. No organomegaly. EXTREMITIES: No bilateral lower extremity edema. NEUROLOGIC: Awake, alert and verbal. Follows simple commands. LABORATORY DATA: Reviewed. WBC 13, RBC 2.78, hemoglobin 7.3, hematocrit 23.8 and platelets 113. Sodium 141, potassium 4.5, chloride 110, carbon dioxide 27, anion gap 9, BUN 64, creatinine 2.5, GFR 30, random glucose 104, calcium 9.6, phosphorous 4.1, magnesium 2.1, total bilirubin 0.8, AST 38, ALT 35, alkaline phosphatase 155, total protein 6.3, albumin 2.5, globulin 3.9 and albumin-globulin ratio 0.6. MEDICATION: Reviewed. Tylenol 650 mg every 4 hours p.r.n. for mild pain, Tylenol 650 mg every 4 hours p.r.n. for fever greater than 100.5, DuoNeb 3 mL inhalation every 4 hours p.r.n., Brovana 15 mcg inhalation every 12 hours, aspirin 81 mg p.o. daily, Pulmicort 0.25 mg inhalation every 12 hours, ceftaroline fosamil 400 mg every 12 hours, daptomycin 650 mg every other day, Cardizem 100 mg daily, Lasix 20 mg IV daily, Apresoline 10 mg p.o. daily p.r.n., isosorbide mononitrate 30 mg p.o. daily, Synthroid 25 mcg daily, Namenda 10 mg daily, Singulair 10 mg daily, Protonix 20 mg daily, sodium chloride 0.9% 40 mL per hour and Flomax 0.8 mg daily. IMPRESSION AND PLAN: Bacteremia, bilateral pleural effusion, chronic lung disease, cardiac diastolic dysfunction and systolic dysfunction, cardiomyopathy, history of paroxysmal atrial fibrillation, pulmonary hypertension, coronary artery disease, hyperlipidemia, oropharyngeal dysphagia, endocarditis, bladder outlet obstruction, benign prosthetic hyperplasia. The patient also has a component of sleep apnea syndrome. Case discussed with in-house nurse practitioner who will decrease IV fluid as the patient seen more congested today, need to monitor kidney function. Patient also potentially will be transferred to [place] for pacemaker removal due to persistent bacteremia, pending son's decision. Continue antibiotic therapy per Infectious Disease. Continue inhaled bronchodilators. Head of bed elevated at 45 degrees. Cardiology followup, gastric prophylaxis, deep venous thrombosis prophylaxis and sleep apnea precaution. This patient was seen and examined with Dr. Vail. Discussed assessment and plan as described above. Thank you for this consult and we will follow with you. Cornel Collins APN Radha Vail MD [facility]
[2018-02-27] MEDS: Sodium Chloride 0.9% 1,000 ML IV SCH (12:39)
--- NOTE | 2018-02-27 12:59 | PN ---
DATE: 02/27/2018 SEX OF THE PATIENT: Male. AGE OF THE PATIENT: 87. 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 SUBJECTIVE: The patient denies any chest pain, shortness of breath. He is much awake and alert. OBJECTIVE: GENERAL: Not in apparent distress. Sitting at the bedside. VITAL SIGNS: Temperature afebrile, heart rate 90, blood pressure 145/57. HEENT: PERRLA. Extraocular muscles intact. NECK: Supple. No carotid bruits or thyromegaly. CHEST: Clear to auscultation. HEART: S1, S2 regular. ABDOMEN: Soft. EXTREMITIES: Clubbing and cyanosis negative. LABORATORY DATA: Blood workup as follows: WBC 13, hemoglobin 7.2, hematocrit 23.1, and platelet count 113. Chemistry shows sodium 141, potassium 4.5, chloride 110, carbon dioxide 27, anion gap of 9, BUN 60, and creatinine 2.5. Blood culture persistently positive Staph aureus. IMPRESSION: This is an 87-year-old male with past medical history significant for coronary artery disease, coronary artery bypass graft, ischemic cardiomyopathy, history of atrial fibrillation, chronic obstructive pulmonary disease, tricuspid valve endocarditis persistently bacteremic. So far, blood cultures are negative. Most recent echo shows ejection fraction 15% to 20%, [id number] mitral regurgitation, moderate tricuspid regurgitation, right ventricular systolic pressure 47. Mobile echogenic structure attached to tricuspid valve where the leads or AICD is crossing consistent with a vegetation of tricuspid valve endocarditis. PLAN: Removal of the defibrillator. Last night, I talked to the patient on Shola Whitfield, given the patient is high risk, also discussed with Dr. Pena and put for consult for evaluation and possible removal of AICD though it will be very high risk. Risk benefit ratio is in favor of to go if the surgery can be done safely. We will go for removal AICD because it will be under the laser. I discussed with Dr. Pena and reported consult. We are going to evaluate the patient today. I discussed with the patient's son who is going to discuss with the family and get us back. Still continue antibiotic. Overall the patient's condition is critical. Long-term prognosis is guarded. Monitor H and H. If it goes below 8, consider packed RBC transfusion. Shola Zuñiga, telephone number [phone] who lives in [place] has a power contracts attorney, spoke to him. Thank you Dr. Rivas for providing us the opportunity in taking care of the patient, Yogesh Stevenson. We will follow with you. Interim continue antibiotic, continue Cardizem CD to control the heart rate. Continue Imdur, continue levothyroxine. As mentioned, overall patient's condition is critical. Long-term prognosis guarded. Radha Woodward MD
--- NOTE | 2018-02-28 03:28 | CON ---
DATE: 02/27/2018 INPATIENT ELECTROPHYSIOLOGY CONSULTATION REQUESTING PHYSICIAN: Radha Woodward MD REASON FOR EVALUATION: 1. Status post Medtronic single-lead AICD. 2. Endocarditis. 3. Congestive heart failure. 4. Anemia. HISTORY OF PRESENT ILLNESS: Mr. Faraz Zuñiga is an 87-year-old male with past medical history significant for ischemic cardiomyopathy, status post single-lead AICD, coronary artery disease, history of CABG, dementia, who was brought to the emergency department from the halfway after being found to be drowsy, incoherent, and confused. The patient was found ultimately to be septic. The patient had been on antibiotic therapy on and off for persistent septicemia since 12/2017. The patient was seen by the Cardiology service with Dr. Radha Woodward as well as Dr. 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 The patient was seen and evaluated this morning. The patient's device was also interrogated. The patient, of note, initially was confused, had been quite confused; however, the patient's mental status has improved. PAST MEDICAL HISTORY: Significant for COPD; dementia; renal failure; history of GI bleeding, requiring massive transfusion. The patient had been considered for ANDRE; however, procedure was abandoned secondary to the patient's altered mental status. ALLERGIES: TO NICODERM. MEDICATIONS: Currently include acetaminophen 650 mg every 4 hours p.r.n., arformoterol 15 mcg every 12 hours respirations, aspirin 81 mg p.o. daily, budesonide, diltiazem 180 mg p.o. daily, furosemide 20 mg IV daily, hydralazine 10 mg p.o. daily p.r.n. hypertension, isosorbide mononitrate 30 mg p.o. daily, levothyroxine 25 mcg p.o. daily, Namenda 10 mg p.o. daily, montelukast 10 mg p.o. daily, Protonix 20 mg p.o. daily, tamsulosin 0.8 mg p.o. daily. REVIEW OF SYSTEMS: Currently, the patient is without headache, chest pain. Does have baseline shortness of breath. No current chest pain. No abdominal pain, nausea, vomiting, diarrhea, constipation. Denies any GI bleeding. Does complain of a moist cough. PHYSICAL EXAMINATION VITAL SIGNS: Temperature is 98.8, pulse rate of 98, blood pressure is 143/76. GENERAL: He is a debilitated, but pleasant male, in no acute distress. HEENT: Examination of his head is normocephalic, atraumatic. He has poor dentition. NECK: Supple. No jugular venous distention. No carotid bruits. CHEST: Significant for decreased bibasilar breath sounds with mild crackles. ABDOMEN: Soft, nontender, nondistended. Positive bowel sounds. EXTREMITIES: No cyanosis, clubbing, or significant edema. On review of his device interrogation, the patient has a normal-functioning Virtuoso II single-lead device. The patient has not received any therapy for VT or VF; however, there were over 59 nonsustained ventricular tachycardia episodes, for which the patient did not require therapy. The patient activity is very poor as one can predict. The patient minimally V paces and is set at a nominal-backup pacing mode VVI with a low rate of 40. The patient's OptiVol is elevated. LABORATORY DATA: On review of current lab work, the patient's CBC has been reviewed with white count of 13.0, H and H was 7.2 and 23.1, platelet count of 113. Chemistry is notable for sodium of 141, chloride of 110, potassium of 4.5, BUN of 64, and creatinine of 2.5. ALT, AST are 35 and 38. Alk phos is 151. Albumin is 2.5. The echocardiogram, which was performed on 02/25/2018, shows that the left ventricle is mildly dilated, but severely impaired ejection fraction of 15% to 20%. Multiple wall motion abnormalities are noted. Atrium is mildly dilated. The patient has no aortic stenosis or valvular vegetation. Mitral valve is thickened, but opens well. There is no evidence of mitral valve prolapse. Tricuspid valve is thickened, opens well. There is a highly mobile mass on the tricuspid valve. There is moderate vegetation on the tricuspid valve itself. EKG, which was done on 02/19/2018, shows sinus tachycardia with premature ventricular complexes, left axis deviation, right bundle-branch block with left ventricular hypertrophy with repolarization abnormalities. ASSESSMENT AND PLAN: 1. Status post single-lead Medtronic automatic implantable cardioverter-defibrillator with normal function and is a dual-coil device. 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 Despite ongoing treatment with antibiotics, the Infectious Disease service states the patient has had ongoing methicillin-resistant Staphylococcus aureus bacteremia. At this point, the patient could be a candidate for laser lead extraction. The patient's condition was very poor. It appears as though his mental status is improving and therefore, may be a more reasonable candidate to undergo laser lead extraction. Case has been discussed with the patient. At this point, appears to be alert and oriented, but as per the son who is the power of estate planning attorney, his mental status waxes and wanes. The patient appears, at this point, to be agreeable for possibly lifesaving procedure. I have had a discussion with the patient's son who is the power of estate planning attorney and currently in [place]. The patient's family is to make a decision in the next 24 hours in terms of aggressiveness of care. If the laser lead extraction is decided upon, clinical status will need to be optimized in terms of his hemoglobin status, his volume status, his intrathoracic fluid volume appears to be elevated as per the OptiVol reading. So, volumes as well also need to be optimized. The patient would then be transferred to [facility] and to undergo laser lead extraction with Dr. Lolly Rousseau. Once the decision for lead extraction is made, we will then reach out to Dr. Rousseau at that time for his opinion. 2. Systolic heart failure. The patient's OptiVol is elevated and it should be optimized from a volume status standpoint. 3. Anemia, which should be optimized. 4. Chronic renal insufficiency, will need to be watched. 5. History of nonsustained ventricular tachycardia. If the patient does undergo laser lead extraction, he may be a candidate for LifeVest placement given his history of nonsustained ventricular tachycardia. Thank you for allowing me to participate in the care of your patient. Please do not hesitate to call if you have any questions in regards to his care. Greater than 70 minutes was spent in the patient evaluation, records review, and coordination of care. Clayton Crystal MD
[2018-02-28] MEDS: Levothyroxine 25 MCG TAB PO SCH (05:47)
[2018-02-28] MEDS: Pantoprazole 20 mg EC Tab PO SCH (05:47)
[2018-02-28 07:19] LABS: HEMOGLOBIN 8.7 g/dL (14.0-18.0); MEAN CELL VOLUME 82.8 fl (80.0-105.0); MEAN CORPUSCULAR HEMOGLOBIN 26.2 pg (25.0-35.0); MEAN CORPUSCULAR HGB CONC 31.6 g/dl (31.0-37.0); MEAN PLATELET VOLUME 10.8 fl (7.0-11.0); RBC 3.32 10^6/uL (3.5-6.1); RED CELL DISTRIBUTION WIDTH 17.9 % (11.5-14.5); WHITE BLOOD COUNT 12.8 10^3/uL (4.5-11.0)
[2018-02-28 07:30] LABS: ALB/GLOB RATIO 0.6 (1.1-1.8); ALBUMIN 2.7 g/dL (3.0-4.8); CALCIUM 9.5 mg/dL (8.4-10.5)
[2018-02-28] MEDS: Arformoterol 15 mcg/2 ml Inh Sol IH SCH ×2 (08:03→20:04)
[2018-02-28] MEDS: Budesonide 0.25 mg/2 ml Inhal Susp UD IH SCH ×2 (08:03→20:04)
--- NOTE | 2018-02-28 08:07 | PN ---
DATE: 02/27/2018 SUBJECTIVE: The patient is an 87-year-old male. The patient is seen and examined at the bedside on 02/27/2018, looking comfortable. No fevers, no chills. No nausea, vomiting, or diarrhea. No hematuria or hematochezia. No swelling of the legs. No chest pain or palpitation. Looking more awake and lethargic. Only having dyspnea on exertion. PHYSICAL EXAMINATION VITAL SIGNS: Temperature 98, pulse 90, respiratory rate 21, blood pressure 140/57, pulse oximetry 95. HEENT: Head: Normocephalic, atraumatic. Eyes: PERRLA. Extraocular muscles intact. Conjunctivae clear. Nose patent. NECK: Supple. No carotid bruits, JVD, or thyromegaly. CHEST: Bilaterally symmetrical. HEART: S1, S2 positive. LUNGS: Clear to auscultation. ABDOMEN: Soft. Bowel sounds present. No organomegaly. EXTREMITIES: No edema. No cyanosis. NEUROLOGIC: The patient is awake and alert. Moving all 4 extremities. No focal deficits. MEDICATIONS: Tylenol, Brovana, Ecotrin, Pulmicort, Cardizem, Lasix, hydralazine, ceftriaxone, daptomycin, isosorbide, levothyroxine, Namenda, Singulair, Tamiflu, Flomax. LABORATORY DATA: White blood cells 13, hemoglobin 7.2, hematocrit 23.1, platelets 113. Sodium 141, potassium 4.5, BUN 64, creatinine 2.5, glucose 104. ASSESSMENT AND PLAN: The patient is an 87-year-old male with leukocytosis, anemia, thrombocytopenia, renal insufficiency, hyperchloremia, congestive heart failure, gastrointestinal bleeding, atrial fibrillation, chronic obstructive pulmonary disease, coronary artery bypass grafting, automated implantable cardioverter defibrillator, history of methicillin-resistant Staphylococcus aureus bacteremia, and Escherichia coli urinary tract infection, has pneumonia, Infectious Disease is on the case. Getting intravenous daptomycin, Merrem. Infectious Disease is recommending strongly transesophageal echocardiography in the setting of permanent pacemaker and recurrent bacteremia. Raysa, nurse practitioner, spoke to Dr. Woodward, unit aide. According to Dr. Woodward, treat medically for endocarditis with 4 to 6 weeks antibiotics without transesophageal echocardiography due to risk and comorbidities. According to Infectious Disease, the patient needs intravenous daptomycin and now Teflaro, and they want permanent pacemaker removed for persistent bacteremia/methicillin-resistant Staphylococcus aureus bacteremia. Raysa spoke to Dr. Pena, they will interrogate permanent pacemaker and plan mainly removal due to persistent bacteremia may be transfer the patient to [place] if patient's son agrees. Actually, Raysa spoke to patient's son, Stephen, and they agreed. Repeat H and H , may be we will give intravenous infusion, getting a soft diet. Plan is to continue present treatment. Gastrointestinal and deep venous thrombosis prophylaxis. Appreciated Raysa's input. We will follow up. Irasema Rivas MD MTDD
--- NOTE | 2018-02-28 09:04 | PN ---
DATE: 02/28/2018 SUBJECTIVE: The patient is in bed in no acute distress, nontoxic. PHYSICAL EXAMINATION: VITAL SIGNS: Temperature is 98, blood pressure is 120/70, respiratory rate of 16. HEENT: Examination of HEENT is unremarkable. NECK: Supple. LUNGS: Have decreased breath sounds. HEART: Normal S1, S2. ABDOMEN: Soft, nontender. LABORATORY EXAMINATION: Reveals the patient's white count of 12,800, hemoglobin of 8, platelets of 124. Coagulation is noted. Chemistries reveals a BUN of 59, creatinine of 2.5 and urinalysis is noted and influenza is negative. Microbiology reveals the blood cultures are positive again, every single blood culture has been positive for MRSA with repeat cultures from the are also positive. Review of orders reveals the patient to be on daptomycin and Teflaro. ASSESSMENT AND PLAN: A 87-year-old male was seen earlier this morning with sepsis with methicillin resistant Staphylococcus aureus bacteremia, probable pacemaker infection and endocarditis and with persistent bacteremia, unable to clear the bacteremia on Teflaro and daptomycin with coronary artery disease and coronary bypass graft and ischemic cardiomyopathy. Overall, prognosis is quite poor. Dr. Rivas's note from yesterday is reviewed and Dr. 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 Overall, prognosis is quite poor. Thor Fairbanks MD
--- NOTE | 2018-02-28 09:08 | CP.PCM.PN ---
Subjective - Date & Time of Evaluation Date of Evaluation: 02/28/18 Time of Evaluation: 06:20 - Subjective Subjective: Lying in bed, Awake, no distress, comfortable, on isolation Reason for consultation and follow up:Cardiac evaluation of CHF and coronary artery disease, recurrent bacteremia, Seen and examined by me and Objective - Vital Signs/Intake and Output Vital Signs (last 24 hours): Temp Pulse Resp BP Pulse Ox 97.1 F L 84 22 145/66 8 L 02/28/18 00:01 02/28/18 02:00 02/28/18 00:01 02/28/18 00:01 02/28/18 00:01 Intake and Output: 02/28/18 02/28/18 06:59 18:59 Intake Total 665 Output Total 1999 Balance -1335 - Medications Medications: Current Medications Acetaminophen (Tylenol 325mg Tab) 650 mg PO Q4H PRN PRN Reason: Pain, Mild (1-3) Last Admin: 02/27/18 10:08 Dose: 650 mg Acetaminophen (Tylenol 325mg Tab) 650 mg PO Q4H PRN PRN Reason: Fever >100.5 F Last Admin: 02/25/18 06:11 Dose: 650 mg Albuterol/Ipratropium (Duoneb 3 Mg/0.5 Mg (3 Ml) Ud) 3 ml IH Q4 PRN PRN Reason: Shortness of Breath Arformoterol Tartrate (Brovana) 15 mcg IH [id number] [facility] Last Admin: 02/28/18 08:03 Dose: 15 mcg Aspirin (Ecotrin) 81 mg PO DAILY [facility] Last Admin: 02/27/18 10:09 Dose: 81 mg Budesonide (Pulmicort Respules) 0.25 mg IH [id number] [facility] Last Admin: 02/28/18 08:03 Dose: 0.25 mg Diltiazem HCl (Cardizem Cd) 180 mg PO DAILY [facility] Last Admin: 02/27/18 10:09 Dose: 180 mg Furosemide (Lasix) 20 mg IV DAILY [facility] Last Admin: 02/27/18 21:00 Dose: 20 mg Hydralazine HCl (Apresoline) 10 mg PO DAILY PRN PRN Reason: Systolic Blood Pressure >170 Ceftaroline Fosamil 400 mg/ (Sodium Chloride) 100 mls @ 100 mls/hr IVPB Q12 [facility]; Protocol Stop: 03/05/18 10:46 Last Admin: 02/28/18 01:02 Dose: 100 mls/hr Daptomycin 650 mg/ Sodium (Chloride) 100 mls @ 200 mls/hr IV QOTHERDAY [facility] Stop: 03/04/18 10:01 Last Admin: 02/27/18 12:39 Dose: 200 mls/hr Sodium Chloride (Sodium Chloride 0.9%) 1,000 mls @ 40 mls/hr IV .Q24H [facility] Last Admin: 02/27/18 12:39 Dose: 40 mls/hr Isosorbide Mononitrate (Imdur Er) 30 mg PO DAILY [facility] Last Admin: 02/27/18 10:09 Dose: 30 mg Levothyroxine Sodium (Synthroid) 25 mcg PO 0600 [facility] Last Admin: 02/28/18 05:47 Dose: 25 mcg Memantine (Namenda) 10 mg PO DAILY [facility] Last Admin: 02/27/18 10:09 Dose: 10 mg Montelukast Sodium (Singulair) 10 mg PO DAILY [facility] Last Admin: 02/27/18 10:09 Dose: 10 mg Pantoprazole Sodium (Protonix Ec Tab) 20 mg PO 0600 [facility] Last Admin: 02/28/18 05:47 Dose: 20 mg Tamsulosin HCl (Flomax) 0.8 mg PO DAILY [facility] Last Admin: 02/27/18 10:08 Dose: 0.8 mg - Labs Labs: 02/28/18 06:30 02/28/18 06:30 PT 16.6 SECONDS (9.4-12.5) H 02/19/18 18:04 INR 1.45 02/19/18 18:04 APTT 25.0 Seconds (25.1-36.5) L 02/19/18 18:04 - Constitutional Appears: Non-toxic, No Acute Distress - Head Exam Head Exam: NORMAL INSPECTION, NORMOCEPHALIC - Eye Exam Eye Exam: Normal appearance Pupil Exam: NORMAL ACCOMODATION - ENT Exam ENT Exam: Mucous Membranes Moist - Respiratory Exam Respiratory Exam: Decreased Breath Sounds, NORMAL BREATHING PATTERN - Cardiovascular Exam Cardiovascular Exam: +S1, +S2 Additional comments: PPM/AICD - GI/Abdominal Exam GI & Abdominal Exam: Soft, Normal Bowel Sounds - Neurological Exam Neurological Exam: Alert, Awake - Psychiatric Exam Psychiatric exam: Normal Affect, Normal Mood - Skin Skin Exam: Dry, Normal Color, Warm Assessment and Plan - Assessment and Plan (Free Text) Assessment: An 87 year old male who came from [facility] due to altered mental status, chest pain and shortness of breath. History of GI bleed, anemia, chronic renal failure, coronary artery disease post CABG, Afib and COPD, systolic dysfu nction CHF. Elevated troponin 0.29/0.28. Echo done 01/22/18 LVEF 15-25%, Trace AR/MR, moderate TR RVSP 75 mmHg,moderate to severe pulmonary hypertension. Will treat medically for now for elevated troponin. No cardiac catheterization for now due to renal insufficiency. Denies chest pain now. ANDRE was not done from previous admission due to severe dementia and agitation due to risk of perforation. Consult was called again to evaluate and possible ANDRE to rule out endocarditis due to recurrent bacteremia. 02/25/18 Repeat echo done, showed echogenic mobile structure aatached to tricuspid valve consistent with vegetation tricuspid valve endocarditis. Dr. Pena consulted for removal of AICD. Plan: For possible removal of infected AICD, Dr. Pena on consult for possible laser lead extraction Dr. Woodward and Dr. Pena spoke to family awaiting decision No distress, on isolation precaution Denies chest pain Heart rate stable Blood pressure stable Bacteremia, ID on consult Continue antibiotics as per ID On ASA 81 mg daily, Cardizem 180 mg daily, Lasix 40 mg daily, Imdur ER 30 mg daily,Synthroid 25 mcg daily,Flomax 0.8 mg daily Continue current medications Continue current treatment Nutritional support Will follow up Plan and treatment discussed with Dr. Jacobson
--- NOTE | 2018-02-28 10:51 | CP.PCM.APN ---
Subjective - Date & Time of Evaluation Date of Evaluation: 02/28/18 Time of Evaluation: 09:00 - Subjective Subjective: pt seen and examined a t bedside he complaints of shortness of breath - iv fluid stopped Review of Systems - Respiratory Respiratory: Dyspnea on Exertion Additional comments: shortness of breath Objective - Vital Signs/Intake and Output Vital Signs (last 24 hours): Temp Pulse Resp BP Pulse Ox 97.1 F L 84 22 145/66 8 L 02/28/18 00:01 02/28/18 02:00 02/28/18 00:01 02/28/18 00:01 02/28/18 00:01 Intake and Output: 02/28/18 02/28/18 06:59 18:59 Intake Total 665 Output Total 1999 Balance -1335 - Medications Medications: Current Medications Acetaminophen (Tylenol 325mg Tab) 650 mg PO Q4H PRN PRN Reason: Pain, Mild (1-3) Last Admin: 02/27/18 10:08 Dose: 650 mg Acetaminophen (Tylenol 325mg Tab) 650 mg PO Q4H PRN PRN Reason: Fever >100.5 F Last Admin: 02/25/18 06:11 Dose: 650 mg Albuterol/Ipratropium (Duoneb 3 Mg/0.5 Mg (3 Ml) Ud) 3 ml IH Q4 PRN PRN Reason: Shortness of Breath Arformoterol Tartrate (Brovana) 15 mcg IH [id number] [facility] Last Admin: 02/28/18 08:03 Dose: 15 mcg Aspirin (Ecotrin) 81 mg PO DAILY [facility] Last Admin: 02/27/18 10:09 Dose: 81 mg Budesonide (Pulmicort Respules) 0.25 mg IH [id number] [facility] Last Admin: 02/28/18 08:03 Dose: 0.25 mg Diltiazem HCl (Cardizem Cd) 180 mg PO DAILY [facility] Last Admin: 02/27/18 10:09 Dose: 180 mg Furosemide (Lasix) 20 mg IV DAILY [facility] Last Admin: 02/27/18 21:00 Dose: 20 mg Hydralazine HCl (Apresoline) 10 mg PO DAILY PRN PRN Reason: Systolic Blood Pressure >170 Ceftaroline Fosamil 400 mg/ (Sodium Chloride) 100 mls @ 100 mls/hr IVPB Q12 [facility]; Protocol Stop: 03/05/18 10:46 Last Admin: 02/28/18 01:02 Dose: 100 mls/hr Daptomycin 650 mg/ Sodium (Chloride) 100 mls @ 200 mls/hr IV QOTHERDAY [facility] Stop: 03/04/18 10:01 Last Admin: 02/27/18 12:39 Dose: 200 mls/hr Sodium Chloride (Sodium Chloride 0.9%) 1,000 mls @ 40 mls/hr IV .Q24H [facility] Last Admin: 02/27/18 12:39 Dose: 40 mls/hr Isosorbide Mononitrate (Imdur Er) 30 mg PO DAILY [facility] Last Admin: 02/27/18 10:09 Dose: 30 mg Levothyroxine Sodium (Synthroid) 25 mcg PO 0600 [facility] Last Admin: 02/28/18 05:47 Dose: 25 mcg Memantine (Namenda) 10 mg PO DAILY [facility] Last Admin: 02/27/18 10:09 Dose: 10 mg Montelukast Sodium (Singulair) 10 mg PO DAILY [facility] Last Admin: 02/27/18 10:09 Dose: 10 mg Pantoprazole Sodium (Protonix Ec Tab) 20 mg PO 0600 [facility] Last Admin: 02/28/18 05:47 Dose: 20 mg Tamsulosin HCl (Flomax) 0.8 mg PO DAILY [facility] Last Admin: 02/27/18 10:08 Dose: 0.8 mg - Labs Labs: 02/28/18 06:30 02/28/18 06:30 PT 16.6 SECONDS (9.4-12.5) H 02/19/18 18:04 INR 1.45 02/19/18 18:04 APTT 25.0 Seconds (25.1-36.5) L 02/19/18 18:04 - Constitutional Appears: Older Than Stated Age - Head Exam Head Exam: NORMAL INSPECTION, NORMOCEPHALIC - Eye Exam Eye Exam: PERRL - Respiratory Exam Respiratory Exam: Decreased Breath Sounds Additional comments: left lung bases especially - Cardiovascular Exam Cardiovascular Exam: +S1, +S2 (ppm intact to left chest wall ) - Extremities Exam Extremities Exam: Normal Capillary Refill - Neurological Exam Neuro motor strength exam: Left Upper Extremity: 4, Right Upper Extremity: 4, Left Lower Extremity: 4, Right Lower Extremity: 4 - Psychiatric Exam Psychiatric exam: Normal Affect, Normal Mood - Skin Skin Exam: Dry, Intact, Normal Color, Warm Assessment and Plan - Assessment and Plan (Free Text) Assessment: Microbiology 02/26/18 10:50 Blood Culture - Final Blood-Venous Methicillin Resistant S Aureus Gram Stain - Final 02/26/18 11:30 S.aureus & Coag-Neg Staph PNA FISH - Final Blood-Venous Blood Culture - Preliminary Gram Positive Cocci Gram Stain - Final 02/25/18 09:50 S.aureus & Coag-Neg Staph PNA FISH - Final Blood-Venous Blood Culture - Final Methicillin Resistant S Aureus Gram Stain - Final 02/25/18 09:25 Blood Culture - Final Blood-Venous Methicillin Resistant S Aureus Gram Stain - Final All Active Problems Pneumonia (Acute) Sepsis (Acute) UZAIR (acute kidney injury) (Acute) Ankle sprain (Acute) Arrhythmia (Acute) CHF (congestive heart failure) (Acute) CHF (congestive heart failure) (Acute) Congestive heart failure (Acute) Elevated CEA (Acute) Elevated troponin (Acute) Gastritis and duodenitis (Acute) Hemorrhoids (Acute) Leukocytosis (Acute) Prophylactic measure (Acute) Rectal pain (Acute) SOB (shortness of breath) (Acute) UTI (urinary tract infection) (Acute) Urinary obstruction (Acute) Anemia (Chronic) CRF (chronic renal failure) (Chronic) Dilated cardiomyopathy (Chronic) GI bleed (Chronic) HTN (hypertension) (Chronic) Renal insufficiency (Chronic) A/P 87 yr old with pmh sig fo rchf, gi bleed, anemia, CRF, Afib, Copd, CABG/ AICD, hx MRSA bacteremai and e Coli UTI who was transferred from [facility] for lethargy, ams, sob and cp now undergoing workup for sepsis / pneumonia with ID consult on IV Daptomycin and Merrem with ID workup in progress including pancu lture Sw note , cardio notes rev'd ID consult noted regarding strong recommendation for ANDRE in setting of PPM and recurrent bacteremia spoke to toll lineman re : ANDRE - per DR Woodward treat medically for endocarditis with 4 to 6 wks antibiotics w/o ANDRE due to risk/comorbidities. spoke to toll lineman re : ANDRE - per DR Woodward treat medically for endocarditis with 4 to 6 wks antibiotics w/o ANDRE due to risk/comorbidities. Spoke with ID - persistent recurrent bacerteremia pt needs to continue on IV dapto or have ppm removed discuss plan with cm and sw re IV dapto and merrem needed and facility for 4-6 wks treatment for persistent bacteremia presumably due to infected ppm. discuss with Dr Crystal- who called son re plan for ppm removal, awaiting response acute amenia treated with 1 unit prbc yesterday dc ivf today will follow up on son/patient decision re: ppm removal
[2018-02-28] MEDS: Albuterol-Ipratrop 3 mg / 0.5 (3 ml) UD IH PRN (11:07)
--- NOTE | 2018-02-28 11:38 | PN ---
PULMONARY PROGRESS NOTE DATE: 02/28/2018 REFERRING PHYSICIAN: Irasema Rivas MD SUBJECTIVE: The patient lying in bed, awake, alert, verbal, no acute distress. The patient does report feeling well today. No headache, rhinitis, shortness of breath, chest pain, abdominal pain, nausea, vomiting, diarrhea, leg pain or leg swelling reported. Does report occasional cough. OBJECTIVE GENERAL: No acute distress. VITAL SIGNS: Blood pressure 145/66, pulse 90 and temperature 97.1. HEENT: Moist mucus membranes. NECK: Supple. No JVD. CARDIOVASCULAR: S1 and S2, audible. LUNGS: Decreased breath sounds on bases. Few rhonchi. ABDOMEN: Soft and nontender. No distention. No organomegaly. EXTREMITIES: No bilateral lower extremity edema. NEUROLOGIC: Awake, alert, verbal. Follows simple commands. MEDICATIONS: Reviewed. Tylenol 650 mg p.o. every 4 hours p.r.n. for mild pain, Tylenol 650 mg every 4 hours p.r.n. for fever greater than 100.5, DuoNeb 3 mL inhalation every 4 hours p.r.n., Brovana 15 mcg every 12 hours, aspirin 81 mg p.o. daily, Pulmicort 0.25 mg inhalation every 12 hours, ceftaroline fosamil 400 mg every 12 hours, Daptomycin 650 mg every other day, Cardizem 180 mg p.o. daily, Lasix 20 mg daily, hydralazine 10 mg p.o. daily p.r.n., isosorbide mono 30 mg p.o. daily, Synthroid 25 mcg daily, Namenda 10 mg p.o. daily, Singulair 10 mg p.o. daily, Protonix 20 mg daily, sodium chloride 0.9% at 40 mL per hour and Flomax 0.8 mg daily. LABORATORY DATA: Reviewed. WBC 12.8, RBC 3.32, hemoglobin 8.7, hematocrit 27.5 and platelets 124. Sodium 144, potassium 4.4, chloride 111, carbon dioxide 26, anion gap 12, BUN 59, creatinine 2.6, GFR 30, random glucose 93, calcium 9.5, total bilirubin 0.9, AST 31, ALT 29, alkaline phosphatase 160, total protein 7.0, albumin 2.7, globulin 4.3 and albumin-globulin ratio 0.6. IMPRESSION AND PLAN: Bacteremia, bilateral pleural effusion, chronic lung disease, cardiac diastolic dysfunction and systolic dysfunction, cardiomyopathy, history of paroxysmal atrial fibrillation, pulmonary hypertension, coronary artery disease, hyperlipidemia, oropharyngeal dysphagia, endocarditis, bladder outlet obstruction, benign prostatic hyperplasia. The patient also has a component of sleep apnea syndrome for possible removal of infected automatic implantable cardioverter-defibrillator. Dr. Adkins consulted for possible laser lead extraction, awaiting family decision, currently on isolation precaution. Continue antibiotics as per Infectious Disease. Continue inhaled bronchodilators, head of bed elevated at 45 degrees, deep venous thrombosis prophylaxis, sleep apnea precautions and cardiology followup. This patient was seen and examined with Dr. Vail. Discussed assessment and plan as described above. Thank you for this consult and we will follow with you. Cornel Collins APN Radha Vail MD
[2018-02-28] MEDS: diltiaZEM 180 mg/24 Hours CD Cap PO SCH (11:49)
[2018-02-28] MEDS: Sodium Chloride 0.9% 1,000 ML IV SCH (11:51)
--- NOTE | 2018-03-01 02:18 | PN ---
DATE: 02/28/2018 SUBJECTIVE: The patient seen and examined at the bedside on 02/28/2018, looking comfortable. No fever. No chills. No hematuria or hematochezia. No swelling of the leg. No chest pain, no palpitation. Not doing better. Appetite is improving. Does report occasionally coughing. PHYSICAL EXAMINATION: VITAL SIGNS: Blood pressure 145/66, pulse 88, temperature 97.1, respiratory rate 18. HEENT: Head normocephalic, atraumatic. Eyes, PERRLA. Extraocular muscles are intact. Conjunctivae clear. Nose patent. Mucous membranes moist. NECK: Supple. No carotid bruit. No JVD or thyromegaly. CHEST: Bilaterally symmetrical. HEART: S1, S2 positive. LUNGS: Clear to auscultation. ABDOMEN: Soft. Bowel sounds present. No organomegaly. EXTREMITIES: No edema. No cyanosis. NEUROLOGIC: The patient awake, alert. Moving all four extremities. No focal deficits. MEDICATIONS: Tylenol, DuoNeb, Brovana, aspirin, Pulmicort, ceftriaxone, daptomycin, Cardizem, hydralazine, isosorbide, Synthroid, Namenda, Singulair, Protonix, Flomax. LABORATORY DATA: White blood cells 12.8, hemoglobin 8.7, hematocrit 27.5, platelets 124. Sodium 144, potassium 4.4, BUN 59, creatinine 2.6, glucose 93, AST 31, ALT 25. ASSESSMENT AND PLAN: Mr. Faraz Zuñiga, 87 years old male, with bacteremia, bilateral pleural effusion, chronic lung disease, cardiac diastolic dysfunction and systolic dysfunction, cardiomyopathy, paroxysmal atrial fibrillation, pulmonary hypertension, hypercholesterolemia, oropharyngeal dysphagia, coronary artery disease, endocarditis, getting IV antibiotics, bladder outlet obstruction, benign prostatic hyperplasia, sleep apnea syndrome, waiting for removal of the automatic implantable cardioverter-defibrillator. Dr. Crystal is on the case for possibly laser-lead extraction, waiting for family's decision. Continue antibiotics. Continue inhaled bronchodilators. Review Dr. Vail's notes and review Dr. Raysa Pizarro's communication. The patient needs at least 4 to 6 weeks of antibiotics as per ID. Meanwhile continue present treatment. We will follow up. RIMMA FamD: 02/28/2018 22:25:07 [facility] # [id number]
[2018-03-01] MEDS: Pantoprazole 20 mg EC Tab PO SCH (06:17)
[2018-03-01] MEDS: Levothyroxine 25 MCG TAB PO SCH (06:17)
--- NOTE | 2018-03-01 07:58 | CP.PCM.PN ---
Subjective - Date & Time of Evaluation Date of Evaluation: 03/01/18 Time of Evaluation: 06:45 - Subjective Subjective: Awake, alert ,Lying in bed, no distress, comfortable, on isolation Reason for consultation and follow up:Cardiac evaluation of CHF and coronary artery disease, recurrent bacteremia, infected PPM/AICD Seen and examined by me and Objective - Vital Signs/Intake and Output Vital Signs (last 24 hours): Temp Pulse Resp BP Pulse Ox 97.4 F L 85 20 140/82 8 L 03/01/18 01:55 03/01/18 02:00 03/01/18 01:55 03/01/18 01:55 02/28/18 00:01 Intake and Output: 03/01/18 03/01/18 06:59 18:59 Intake Total 240 Output Total 540 Balance -300 - Medications Medications: Current Medications Acetaminophen (Tylenol 325mg Tab) 650 mg PO Q4H PRN PRN Reason: Pain, Mild (1-3) Last Admin: 03/01/18 03:04 Dose: 650 mg Acetaminophen (Tylenol 325mg Tab) 650 mg PO Q4H PRN PRN Reason: Fever >100.5 F Last Admin: 02/25/18 06:11 Dose: 650 mg Albuterol/Ipratropium (Duoneb 3 Mg/0.5 Mg (3 Ml) Ud) 3 ml IH Q2 PRN PRN Reason: Shortness of Breath Last Admin: 02/28/18 11:07 Dose: 3 ml Arformoterol Tartrate (Brovana) 15 mcg IH [id number] [facility] Last Admin: 02/28/18 20:04 Dose: 15 mcg Aspirin (Ecotrin) 81 mg PO DAILY [facility] Last Admin: 02/28/18 11:49 Dose: 81 mg Budesonide (Pulmicort Respules) 0.25 mg IH [id number] [facility] Last Admin: 02/28/18 20:04 Dose: 0.25 mg Diltiazem HCl (Cardizem Cd) 180 mg PO DAILY [facility] Last Admin: 02/28/18 11:49 Dose: 180 mg Furosemide (Lasix) 20 mg IV DAILY [facility] Last Admin: 02/28/18 11:50 Dose: 20 mg Hydralazine HCl (Apresoline) 10 mg PO DAILY PRN PRN Reason: Systolic Blood Pressure >170 Last Admin: 02/28/18 11:49 Dose: 10 mg Ceftaroline Fosamil 400 mg/ (Sodium Chloride) 100 mls @ 100 mls/hr IVPB Q12 [facility]; Protocol Stop: 03/05/18 10:46 Last Admin: 02/28/18 21:52 Dose: 100 mls/hr Daptomycin 650 mg/ Sodium (Chloride) 100 mls @ 200 mls/hr IV QOTHERDAY MARIUSZ Stop: 03/04/18 10:01 Last Admin: 02/27/18 12:39 Dose: 200 mls/hr Sodium Chloride (Sodium Chloride 0.9%) 1,000 mls @ 40 mls/hr IV .Q24H [facility] Last Admin: 02/28/18 11:51 Dose: 40 mls/hr Isosorbide Mononitrate (Imdur Er) 30 mg PO DAILY [facility] Last Admin: 02/28/18 11:48 Dose: 30 mg Levothyroxine Sodium (Synthroid) 25 mcg PO 0600 [facility] Last Admin: 03/01/18 06:17 Dose: 25 mcg Memantine (Namenda) 10 mg PO DAILY [facility] Last Admin: 02/28/18 11:51 Dose: 10 mg Montelukast Sodium (Singulair) 10 mg PO DAILY [facility] Last Admin: 02/28/18 11:51 Dose: 10 mg Pantoprazole Sodium (Protonix Ec Tab) 20 mg PO 0600 [facility] Last Admin: 03/01/18 06:17 Dose: 20 mg Tamsulosin HCl (Flomax) 0.8 mg PO DAILY [facility] Last Admin: 02/28/18 11:48 Dose: 0.8 mg - Labs Labs: 02/28/18 06:30 02/28/18 06:30 PT 16.6 SECONDS (9.4-12.5) H 02/19/18 18:04 INR 1.45 02/19/18 18:04 APTT 25.0 Seconds (25.1-36.5) L 02/19/18 18:04 - Constitutional Appears: Non-toxic, No Acute Distress - Head Exam Head Exam: NORMAL INSPECTION, NORMOCEPHALIC - Eye Exam Eye Exam: Normal appearance - ENT Exam ENT Exam: Mucous Membranes Moist, Normal Exam - Respiratory Exam Respiratory Exam: Decreased Breath Sounds, NORMAL BREATHING PATTERN - Cardiovascular Exam Cardiovascular Exam: +S1, +S2 - GI/Abdominal Exam GI & Abdominal Exam: Soft, Normal Bowel Sounds - Extremities Exam Extremities Exam: Full ROM, Normal Capillary Refill - Neurological Exam Neurological Exam: Alert, Awake, Oriented x3 - Psychiatric Exam Psychiatric exam: Normal Affect, Normal Mood - Skin Skin Exam: Dry, Normal Color, Warm Assessment and Plan - Assessment and Plan (Free Text) Assessment: An 87 year old male who came from [facility] due to altered mental status, chest pain and shortness of breath. History of GI bleed, anemia, chronic renal failure, coronary artery disease post CABG, Afib and COPD, systolic dysfunction CHF. Elevated troponin 0.29/0.28. Echo done 01/22/18 LVEF 15-25%, Tra ce AR/MR, moderate TR RVSP 75 mmHg,moderate to severe pulmonary hypertension. Will treat medically for now for elevated troponin. No cardiac catheterization for now due to renal insufficiency. Denies chest pain now. ANDRE was not done from previous admission due to severe dementia and agitation due to risk of perforation. Consult was called again to evaluate and possible ANDRE to rule out endocarditis due to recurrent bacteremia. 02/25/18 Repeat echo done, showed echogenic mobile structure attached to tricuspid valve consistent with vegetation tricuspid valve endocarditis. Dr. Pena consulted for removal of AICD.For possible laser lead extraction and transfer to [facility] if son agrees and consent for procedure. Plan: No distress, on isolation precaution Denies chest pain Heart rate stable Blood pressure stable Vegetation tricuspid valve endocarditis Dr. Pena on consult for possible laser lead extraction of PPM/AICD Awaiting patient son's decision to agree and consent If agreeable then transfer to [facility] for the procedure Bacteremia, ID on consult Continue antibiotics as per ID On ASA 81 mg daily, Cardizem 180 mg daily, Lasix 40 mg daily, Imdur ER 30 mg daily,Synthroid 25 mcg daily,Flomax 0.8 mg daily Continue current medications Continue current treatment Nutritional support Will follow up Plan and treatment discussed with Dr. Jacobson
--- NOTE | 2018-03-01 08:25 | PN ---
DATE: 02/28/2018 LOCATION: The patient in room 277, bed 1. [facility], found to have sepsis. The patient persistently grows of methicillin-resistant Staphylococcus aureus from the blood cultures. All the blood cultures are positive. The patient was found to have evidence of infection around the lead at the level of her tricuspid valve, the patient has AICD insertion. The patient also has history of dementia, GI bleeding, anemia, chronic renal failure, coronary artery disease, history of CABG, atrial fibrillation, COPD, systolic dysfunction and CHF. Echo done on 01/22/2018 showed LV ejection fraction of 15% to 25%, trace AR, trace MR, moderate ER, RVSP 75 mmHg suggestive of [id number] pulmonary hypertension. The patient has been treated with antibiotics and she has persistent bacteriemia. The patient is not in a shape to do ANDRE because of dementia and there is lot of risk involved by non-cooperation. The patient, however, there is possibility of vegetation on the tricuspid valve where the AICD leads are crossing and lead might be involved in that infective process also. So, the patient need to be extracted these leads and AICD and the patient has been seen by Dr. Adkins of that the family agrees, then he can try to extract by laser leads. So far, family has been thinking about it and in the meantime we are continuing antibiotics and other medications that has been ordered. As soon as family make a decision, we will proceed accordingly. The patient is on daptomycin 650 mg IV every other day, furosemide 20 IV daily, isosorbide 30 daily, aspirin 81 daily, DuoNeb hand nebulizer therapy, Singulair 10 mg daily, Synthroid 25 mcg daily, ceftaroline 400 mg IV every 12 hours, Protonix 20 mg daily, Namenda 10 mg daily. We will continue present therapy. Radha Jacobson MD
[2018-03-01] MEDS: Arformoterol 15 mcg/2 ml Inh Sol IH SCH ×2 (08:27→21:40)
[2018-03-01] MEDS: Budesonide 0.25 mg/2 ml Inhal Susp UD IH SCH ×2 (08:27→21:40)
--- NOTE | 2018-03-01 09:28 | CP.PCM.APN ---
Subjective - Date & Time of Evaluation Date of Evaluation: 03/01/18 Time of Evaluation: 09:00 - Subjective Subjective: pt sitting in bed, no acute distress nurse reports difficulty swallowing food Review of Systems - EENT Nose/Mouth/Throat: Dysphagia Objective - Vital Signs/Intake and Output Vital Signs (last 24 hours): Temp Pulse Resp BP Pulse Ox 97.4 F L 85 20 140/82 8 L 03/01/18 01:55 03/01/18 02:00 03/01/18 01:55 03/01/18 01:55 02/28/18 00:01 Intake and Output: 03/01/18 03/01/18 06:59 18:59 Intake Total 240 Output Total 540 Balance -300 - Medications Medications: Current Medications Acetaminophen (Tylenol 325mg Tab) 650 mg PO Q4H PRN PRN Reason: Pain, Mild (1-3) Last Admin: 03/01/18 03:04 Dose: 650 mg Acetaminophen (Tylenol 325mg Tab) 650 mg PO Q4H PRN PRN Reason: Fever >100.5 F Last Admin: 02/25/18 06:11 Dose: 650 mg Albuterol/Ipratropium (Duoneb 3 Mg/0.5 Mg (3 Ml) Ud) 3 ml IH Q2 PRN PRN Reason: Shortness of Breath Last Admin: 02/28/18 11:07 Dose: 3 ml Arformoterol Tartrate (Brovana) 15 mcg IH [id number] [facility] Last Admin: 03/01/18 08:27 Dose: 15 mcg Aspirin (Ecotrin) 81 mg PO DAILY [facility] Last Admin: 02/28/18 11:49 Dose: 81 mg Budesonide (Pulmicort Respules) 0.25 mg IH [id number] [facility] Last Admin: 03/01/18 08:27 Dose: 0.25 mg Diltiazem HCl (Cardizem Cd) 180 mg PO DAILY [facility] Last Admin: 02/28/18 11:49 Dose: 180 mg Furosemide (Lasix) 20 mg IV DAILY [facility] Last Admin: 02/28/18 11:50 Dose: 20 mg Hydralazine HCl (Apresoline) 10 mg PO DAILY PRN PRN Reason: Systolic Blood Pressure >170 Last Admin: 02/28/18 11:49 Dose: 10 mg Ceftaroline Fosamil 400 mg/ (Sodium Chloride) 100 mls @ 100 mls/hr IVPB Q12 [facility]; Protocol Stop: 03/05/18 10:46 Last Admin: 02/28/18 21:52 Dose: 100 mls/hr Daptomycin 650 mg/ Sodium (Chloride) 100 mls @ 200 mls/hr IV QOTHERDAY [facility] Stop: 03/04/18 10:01 Last Admin: 02/27/18 12:39 Dose: 200 mls/hr Sodium Chloride (Sodium Chloride 0.9%) 1,000 mls @ 40 mls/hr IV .Q24H [facility] Last Admin: 02/28/18 11:51 Dose: 40 mls/hr Isosorbide Mononitrate (Imdur Er) 30 mg PO DAILY [facility] Last Admin: 02/28/18 11:48 Dose: 30 mg Levothyroxine Sodium (Synthroid) 25 mcg PO 0600 [facility] Last Admin: 03/01/18 06:17 Dose: 25 mcg Memantine (Namenda) 10 mg PO DAILY [facility] Last Admin: 02/28/18 11:51 Dose: 10 mg Montelukast Sodium (Singulair) 10 mg PO DAILY [facility] Last Admin: 02/28/18 11:51 Dose: 10 mg Pantoprazole Sodium (Protonix Ec Tab) 20 mg PO 0600 [facility] Last Admin: 03/01/18 06:17 Dose: 20 mg Tamsulosin HCl (Flomax) 0.8 mg PO DAILY [facility] Last Admin: 02/28/18 11:48 Dose: 0.8 mg - Labs Labs: 02/28/18 06:30 02/28/18 06:30 PT 16.6 SECONDS (9.4-12.5) H 02/19/18 18:04 INR 1.45 02/19/18 18:04 APTT 25.0 Seconds (25.1-36.5) L 02/19/18 18:04 - Constitutional Appears: No Acute Distress, Older Than Stated Age - Eye Exam Eye Exam: PERRL - ENT Exam ENT Exam: Mucous Membranes Moist - Neck Exam Neck Exam: Normal Inspection - Respiratory Exam Respiratory Exam: Decreased Breath Sounds, Prolonged Expiratory Phase - Cardiovascular Exam Cardiovascular Exam: +S1, +S2 Additional comments: ppm intact to left wall - GI/Abdominal Exam GI & Abdominal Exam: Soft, Normal Bowel Sounds - Extremities Exam Extremities Exam: Normal Capillary Refill - Neurological Exam Neurological Exam: Alert, Awake - Skin Skin Exam: Dry, Normal Color Assessment and Plan - Assessment and Plan (Free Text) Plan: All Active Problems Pneumonia (Acute) Sepsis (Acute) UZAIR (acute kidney injury) (Acute) Ankle sprain (Acute) Arrhythmia (Acute) CHF (congestive heart failure) (Acute) CHF (congestive heart failure) (Acute) Congestive heart failure (Acute) Elevated CEA (Acute) Elevated troponin (Acute) Gastritis and duodenitis (Acute) Hemorrhoids (Acute) Leukocytosis (Acute) Prophylactic measure (Acute) Rectal pain (Acute) SOB (shortness of breath) (Acute) UTI (urinary tract infection) (Acute) Urinary obstruction (Acute) Anemia (Chronic) CRF (chronic renal failure) (Chronic) Dilated cardiomyopathy (Chronic) GI bleed (Chronic) HTN (hypertension) (Chronic) Renal insufficiency (Chronic) A/P 87 yr old with pmh sig fo rchf, gi bleed, anemia, CRF, Afib, Copd, CABG/ AICD, hx MRSA bacteremai and e Coli UTI who was transferred from [facility] at [facility] for lethargy, ams, sob and cp now undergoing workup for sepsis / pneumonia with ID consult on IV Daptomycin and Merrem with ID workup in progress including panculture that have all grown MRSA Sw note , cardio notes rev'd ID note regarding strong recommendation for ANDRE in setting of PPM and recurrent bacteremia spoke to room service clerk re : ANDRE - per DR Woodward treat medically for endocarditis with 4 to 6 wks antibiotics w/o ANDRE due to risk/comorbidities. Spoke with ID - persistent recurrent bacteremia pt needs to continue on IV dapto or have ppm removed discuss plan with cm and sw re IV dapto and merrem needed and facility for 4-6 wks treatment for persistent bacteremia presumably due to infected ppm. ordered new swallow eval for pt dysphasia. * call placed to Dr Crystal re : son response about ppm removal and therefore subsequent tx to [place] for ppm removal procedure. I spoke to son- son agreed to have ppm removal done - relayed info to Dr Jacobson and to Dr Bonilla goldberg son consent for ppm removal. will follow. BPCI/TIC - BPCIA/TIC Flyers given, including CMS Beneficiary letter: Yes Pt/family verbalized understanding & agreed to program: Yes
[2018-03-01] MEDS: Albuterol-Ipratrop 3 mg / 0.5 (3 ml) UD IH PRN (09:53)
[2018-03-01] MEDS: diltiaZEM 180 mg/24 Hours CD Cap PO SCH (10:07)
[2018-03-01] MEDS: Sodium Chloride 0.9% 1,000 ML IV SCH (10:09)
--- NOTE | 2018-03-01 11:28 | PN ---
PULMONARY PROGRESS NOTE DATE: 03/01/2018 SUBJECTIVE: The patient is sitting up in bed. No acute distress. No overnight events reported. Nursing staff does reports that the patient was having difficulty this morning, eating breakfast. No hemoptysis, hematosis, hematuria, diarrhea or leg swelling reported. OBJECTIVE: GENERAL: No acute distress. VITAL SIGNS: Blood pressure 140/60, pulse 85 and temperature 97.4. HEENT: Moist mucous membranes. NECK: Supple. No JVD. CARDIOVASCULAR: S1 and S2, audible. LUNGS: Decreased breath sounds on bases. Few rhonchi bilaterally. ABDOMEN: Soft and nontender. No distention. No organomegaly. EXTREMITIES: No bilateral lower extremity edema. NEUROLOGIC: Awake, alert, verbal, periods of confusion, able to follow commands. MEDICATIONS: Reviewed. Tylenol 650 mg every 4 hours p.r.n. for mild pain, Tylenol 650 mg p.o. every 4 hours p.r.n. for fever greater than 100.5, DuoNeb 3 mL inhalation every 2 hours p.r.n., Brovana 15 mcg every 12 hours, aspirin 81 mg p.o. daily, Pulmicort 0.25 mg inhalation every 12 hours, ceftaroline fosamil 400 mg every 12 hours, daptomycin 650 mg every other day, Cardizem 180 mg daily, Lasix 20 mg IV daily, hydralazine 10 mg p.o. daily p.r.n., isosorbide mono 30 mg p.o. daily, Synthroid 25 mcg daily, Namenda 10 mg p.o. daily, Singulair 10 mg p.o. daily, Protonix 20 mg daily, sodium chloride 40 mL per hour IV and Flomax 0.8 mg daily. LABORATORY DATA: Reviewed. No new labs yesterday. IMPRESSION AND PLAN: Bacteremia, bilateral pleural effusion, chronic lung disease, cardiac diastolic dysfunction and systolic dysfunction, history of paroxysmal atrial fibrillation, cardiomyopathy, pulmonary hypertension, coronary artery disease, hyperlipidemia, oropharyngeal dysphagia, endocarditis, bladder outlet obstruction, benign prostatic hyperplasia. The patient also has a component of sleep apnea syndrome, possibility of removal of infected automatic implantable cardioverter defibrillator. Awaiting family's decision, discussed case with inhouse nurse practitioner. Dr. Pena is following. Continue antibiotics as per Infectious Disease. Continue inhaled bronchodilators, head of bed elevated at 45 degrees, deep venous thrombosis prophylaxis, sleep apnea precautions and cardiology followup. New order today for swallow evaluation for dysphagia noted this morning. We will order labs to be drawn in the morning. This patient was seen and examined with Dr. Vail. Discussed assessment and plan as described above. Thank you for this consult and we will follow with you. Cornel Collins APN Radha Vail MD [facility]
[2018-03-01 13:36] LABS: BASO # 0.02 K/mm3 (0.0-2.0); BASO % 0.2 % (0.0-3.0); EOS % 0.1 % (1.5-5.0); GRAN # 10.91 (1.4-6.5); GRAN % 89.3 % (50.0-68.0); LYMPH # 0.7 (1.2-3.4); LYMPH % 5.7 % (22.0-35.0); MEAN CELL VOLUME 83.8 fl (80.0-105.0); MEAN CORPUSCULAR HEMOGLOBIN 25.9 pg (25.0-35.0); MEAN CORPUSCULAR HGB CONC 30.9 g/dl (31.0-37.0); MEAN PLATELET VOLUME 10.5 fl (7.0-11.0); MONO # 0.6 (0.1-0.6); MONO % 4.7 % (1.0-6.0); RBC 3.09 10^6/uL (3.5-6.1); WHITE BLOOD COUNT 12.2 10^3/uL (4.5-11.0)
--- NOTE | 2018-03-01 14:23 | CP.PCM.PN ---
<Elisa Lombardo - Last Filed: 03/01/18 14:36> Subjective - Date & Time of Evaluation Date of Evaluation: 03/01/18 Time of Evaluation: 08:00 - Subjective Subjective: ID Progress Note - Dr. Lubin Patient was seen and examined at bedside. Pt found resting comfortably. No acute or adverse events overnight, as per nursing staff. Mann in place. R arm midline in place. No fevers overnight, slight congestion. Objective - Vital Signs/Intake and Output Vital Signs (last 24 hours): Temp Pulse Resp BP Pulse Ox 97.1 F L 78 18 140/83 8 L 03/01/18 12:00 03/01/18 12:00 03/01/18 12:00 03/01/18 12:00 02/28/18 00:01 Intake and Output: 03/01/18 03/01/18 06:59 18:59 Intake Total 240 Output Total 540 Balance -300 - Medications Medications: Current Medications Acetaminophen (Tylenol 325mg Tab) 650 mg PO Q4H PRN PRN Reason: Pain, Mild (1-3) Last Admin: 03/01/18 03:04 Dose: 650 mg Acetaminophen (Tylenol 325mg Tab) 650 mg PO Q4H PRN PRN Reason: Fever >100.5 F Last Admin: 02/25/18 06:11 Dose: 650 mg Albuterol/Ipratropium (Duoneb 3 Mg/0.5 Mg (3 Ml) Ud) 3 ml IH Q2 PRN PRN Reason: Shortness of Breath Last Admin: 03/01/18 09:53 Dose: 3 ml Arformoterol Tartrate (Brovana) 15 mcg IH [id number] [facility] Last Admin: 03/01/18 08:27 Dose: 15 mcg Aspirin (Ecotrin) 81 mg PO DAILY [facility] Last Admin: 03/01/18 10:06 Dose: 81 mg Budesonide (Pulmicort Respules) 0.25 mg IH [id number] [facility] Last Admin: 03/01/18 08:27 Dose: 0.25 mg Diltiazem HCl (Cardizem Cd) 180 mg PO DAILY [facility] Last Admin: 03/01/18 10:07 Dose: 180 mg Furosemide (Lasix) 20 mg IV DAILY [facility] Last Admin: 03/01/18 10:05 Dose: 20 mg Hydralazine HCl (Apresoline) 10 mg PO DAILY PRN PRN Reason: Systolic Blood Pressure >170 Last Admin: 02/28/18 11:49 Dose: 10 mg Ceftaroline Fosamil 400 mg/ (Sodium Chloride) 100 mls @ 100 mls/hr IVPB Q12 [facility]; Protocol Stop: 03/05/18 10:46 Last Admin: 03/01/18 10:08 Dose: 100 mls/hr Daptomycin 650 mg/ Sodium (Chloride) 100 mls @ 200 mls/hr IV QOTHERDAY [facility] Stop: 03/04/18 10:01 Last Admin: 03/01/18 11:12 Dose: 200 mls/hr Sodium Chloride (Sodium Chloride 0.9%) 1,000 mls @ 40 mls/hr IV .Q24H [facility] Last Admin: 03/01/18 10:09 Dose: 40 mls/hr Isosorbide Mononitrate (Imdur Er) 30 mg PO DAILY [facility] Last Admin: 03/01/18 10:06 Dose: 30 mg Levothyroxine Sodium (Synthroid) 25 mcg PO 0600 [facility] Last Admin: 03/01/18 06:17 Dose: 25 mcg Memantine (Namenda) 10 mg PO DAILY [facility] Last Admin: 03/01/18 10:06 Dose: 10 mg Montelukast Sodium (Singulair) 10 mg PO DAILY [facility] Last Admin: 03/01/18 10:06 Dose: 10 mg Pantoprazole Sodium (Protonix Ec Tab) 20 mg PO 0600 [facility] Last Admin: 03/01/18 06:17 Dose: 20 mg Tamsulosin HCl (Flomax) 0.8 mg PO DAILY [facility] Last Admin: 03/01/18 10:06 Dose: 0.8 mg - Labs Labs: 03/01/18 13:30 02/28/18 06:30 PT 16.6 SECONDS (9.4-12.5) H 02/19/18 18:04 INR 1.45 02/19/18 18:04 APTT 25.0 Seconds (25.1-36.5) L 02/19/18 18:04 - Constitutional Appears: No Acute Distress, Chronically Ill - Head Exam Head Exam: ATRAUMATIC, NORMAL INSPECTION, NORMOCEPHALIC - Eye Exam Eye Exam: EOMI, Normal appearance, PERRL Pupil Exam: NORMAL ACCOMODATION, PERRL - ENT Exam ENT Exam: Mucous Membranes Moist, Normal Exam - Neck Exam Neck Exam: Full ROM. absent: Lymphadenopathy - Respiratory Exam Respiratory Exam: Decreased Breath Sounds - Cardiovascular Exam Cardiovascular Exam: REGULAR RHYTHM, +S1, +S2 - GI/Abdominal Exam GI & Abdominal Exam: Soft, Normal Bowel Sounds. absent: Tenderness - Extremities Exam Extremities Exam: Full ROM, Normal Capillary Refill, Normal Inspection. absent: Joint Swelling, Pedal Edema - Neurological Exam Neurological Exam: Altered - Psychiatric Exam Psychiatric exam: Flat Affect Assessment and Plan - Assessment and Plan (Free Text) Assessment: 87 M with a PMHx of CHF, GI bleed, anemia, chronic renal failure, CABG, Afib and COPD that presented to the [facility] ED with complaints of AMS, shortness of breath, chest discomfort and lethargy as per longterm that transferred him. Sepsis persistent bacteremia AMS Hx of Methicillin-resistant Staph aureus bacteremia R/O pacemaker infection, on top of ESBL E. coli UTI, in this patient with MRSA bacteremia from 12/30/2017 iron deficiency anemia dyslipidemia COPD CAD S/P CABG with severe ischemic cardiomyopathy S/P pacemaker placement HTN pulmonary HTN Plan Added teflaro day 3 for persistent positive blood cx gm + bacteremia now with new onset SIRS R/O other source of sepsis - will repeat blood cx, urine cx, CXR.. Daptomycin q48h for this patient with sepsis due to persistent MRSA bacteremia. rule out pacemaker infection. Likely source and consider replacement, discussed with Cardio, arranging transfer to [facility] for replacement of Pacemaker R upper Midline in tact Overall prognosis is poor and the persistent bacteremia will add to this poor pr ognosis. Seen reviewed and discussed with Dr. Lubin <Eyad Lubin - Last Filed: 03/01/18 21:33> Objective - Vital Signs/Intake and Output Vital Signs (last 24 hours): Temp Pulse Resp BP Pulse Ox 97.1 F L 94 H 18 140/83 8 L 03/01/18 12:00 03/01/18 18:00 03/01/18 12:00 03/01/18 12:00 02/28/18 00:01 Intake and Output: 03/01/18 03/02/18 18:59 06:59 Intake Total 420 Output Total 1000 Balance -580 - Medications Medications: Current Medications Acetaminophen (Tylenol 325mg Tab) 650 mg PO Q4H PRN PRN Reason: Pain, Mild (1-3) Last Admin: 03/01/18 03:04 Dose: 650 mg Acetaminophen (Tylenol 325mg Tab) 650 mg PO Q4H PRN PRN Reason: Fever >100.5 F Last Admin: 02/25/18 06:11 Dose: 650 mg Albuterol/Ipratropium (Duoneb 3 Mg/0.5 Mg (3 Ml) Ud) 3 ml IH Q2 PRN PRN Reason: Shortness of Breath Last Admin: 03/01/18 09:53 Dose: 3 ml Arformoterol Tartrate (Brovana) 15 mcg IH [id number] [facility] Last Admin: 03/01/18 08:27 Dose: 15 mcg Aspirin (Ecotrin) 81 mg PO DAILY [facility] Last Admin: 03/01/18 10:06 Dose: 81 mg Budesonide (Pulmicort Respules) 0.25 mg IH [id number] [facility] Last Admin: 03/01/18 08:27 Dose: 0.25 mg Diltiazem HCl (Cardizem Cd) 180 mg PO DAILY [facility] Last Admin: 03/01/18 10:07 Dose: 180 mg Furosemide (Lasix) 20 mg IV DAILY [facility] Last Admin: 03/01/18 10:05 Dose: 20 mg Hydralazine HCl (Apresoline) 10 mg PO DAILY PRN PRN Reason: Systolic Blood Pressure >170 Last Admin: 02/28/18 11:49 Dose: 10 mg Ceftaroline Fosamil 400 mg/ (Sodium Chloride) 100 mls @ 100 mls/hr IVPB Q12 [facility]; Protocol Stop: 03/05/18 10:46 Last Admin: 03/01/18 10:08 Dose: 100 mls/hr Daptomycin 650 mg/ Sodium (Chloride) 100 mls @ 200 mls/hr IV QOTHERDAY [facility] Stop: 03/04/18 10:01 Last Admin: 03/01/18 11:12 Dose: 200 mls/hr Sodium Chloride (Sodium Chloride 0.9%) 1,000 mls @ 40 mls/hr IV .Q24H [facility] Last Admin: 03/01/18 10:09 Dose: 40 mls/hr Isosorbide Mononitrate (Imdur Er) 30 mg PO DAILY [facility] Last Admin: 03/01/18 10:06 Dose: 30 mg Levothyroxine Sodium (Synthroid) 25 mcg PO 0600 [facility] Last Admin: 03/01/18 06:17 Dose: 25 mcg Memantine (Namenda) 10 mg PO DAILY [facility] Last Admin: 03/01/18 10:06 Dose: 10 mg Montelukast Sodium (Singulair) 10 mg PO DAILY [facility] Last Admin: 03/01/18 10:06 Dose: 10 mg Pantoprazole Sodium (Protonix Ec Tab) 20 mg PO 0600 [facility] Last Admin: 03/01/18 06:17 Dose: 20 mg Tamsulosin HCl (Flomax) 0.8 mg PO DAILY [facility] Last Admin: 03/01/18 10:06 Dose: 0.8 mg - Labs Labs: 03/01/18 13:30 02/28/18 06:30 PT 16.6 SECONDS (9.4-12.5) H 02/19/18 18:04 INR 1.45 02/19/18 18:04 APTT 25.0 Seconds (25.1-36.5) L 02/19/18 18:04 Assessment and Plan - Assessment and Plan (Free Text) Assessment: Infectious diseases Attending Physician Attestation Patient seen and examined, discussed with medical coding specialist. I have reviewed the patient's history of present illness, past medical, social, personal and family histories, pertinent physical exam findings, course so far in this hospital admission, pertinent laboratory and imaging results. I agree with the above findings, assessment and plan. 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 Electrophysiology specialist has evaluated the patient, and may transfer patient to another facility to have the device removed and the lead removed, which seems to be related to tricuspid valve vegetations. Repeat blood cx 02/26 is still positive - should have repeat blood cx once the lead/pacemaker have been removed. If bacteremia persists without clearance, prognosis is poor - clearance might be achieved if pacemaker /ICD is removed.
--- NOTE | 2018-03-02 00:59 | PN ---
DATE: 03/01/2018 SUBJECTIVE: The patient is an 87-year-old male. The patient was seen and examined at the bedside on 03/01/2018, looking comfortable, little bit better, and eating better. No headache. No hematuria or hematochezia. No swelling of the legs. No chest pain or palpitations. The patient is a poor historian. PHYSICAL EXAMINATION: VITAL SIGNS: Temperature 98.6, pulse 85, blood pressure 140/60, and respiratory rate 18. HEENT: Head; normocephalic and atraumatic. Eyes; PERRLA. Extraocular muscles intact. Conjunctivae clear. Nose patent. NECK: Supple. No carotid bruit. No JVD or thyromegaly. CHEST: Bilaterally symmetrical. HEART: S1 and S2 positive. LUNGS: Clear to auscultation. ABDOMEN: Soft. Bowel sounds present. No organomegaly. EXTREMITIES: Bilateral trace edema. NEUROLOGIC: The patient is awake, alert, and oriented x2. Follows simple commands. MEDICATIONS: Tylenol, DuoNeb, Brovana, aspirin, Pulmicort, isosorbide, Synthroid, Namenda, Singulair, Protonix, and Flomax. LABORATORY DATA: We do not have recent lab today, but I reviewed old labs. ASSESSMENT AND PLAN: Mr. Faraz Zuñiga is an 87-year-old male with history of multiple medical problems anemia, status post blood transfusion, back pain, bilateral pleural effusion, chronic lung disease, cardiovascular dysfunction, systolic dysfunction, history of paroxysmal atrial fibrillation, cardiomyopathy, pulmonary hypertension, myocardial infarction, history of bladder outlet obstruction, benign prostatic hyperplasia, and sleep apnea syndrome. Gastrointestinal and deep venous thrombosis prophylaxes. Repeat labs. Discussion done with nursing staff. Irasema Rivas MD MTDD
[2018-03-02] MEDS: Levothyroxine 25 MCG TAB PO SCH (05:06)
[2018-03-02] MEDS: Pantoprazole 20 mg EC Tab PO SCH (05:06)
[2018-03-02] MEDS: Arformoterol 15 mcg/2 ml Inh Sol IH SCH ×2 (08:00→20:15)
[2018-03-02] MEDS: Budesonide 0.25 mg/2 ml Inhal Susp UD IH SCH ×2 (08:00→20:15)
[2018-03-02] MEDS: Albuterol-Ipratrop 3 mg / 0.5 (3 ml) UD IH PRN (08:00)
[2018-03-02 08:07] LABS: BASO # 0.03 K/mm3 (0.0-2.0); BASO % 0.3 % (0.0-3.0); EOS % 0.2 % (1.5-5.0); GRAN # 9.54 (1.4-6.5); GRAN % 88.2 % (50.0-68.0); HEMOGLOBIN 8.3 g/dL (14.0-18.0); LYMPH # 0.5 (1.2-3.4); LYMPH % 4.5 % (22.0-35.0); MEAN CELL VOLUME 84.4 fl (80.0-105.0); MEAN CORPUSCULAR HEMOGLOBIN 25.9 pg (25.0-35.0); MEAN CORPUSCULAR HGB CONC 30.7 g/dl (31.0-37.0); MEAN PLATELET VOLUME 10.6 fl (7.0-11.0); MONO # 0.7 (0.1-0.6); MONO % 6.8 % (1.0-6.0); PLATELET COUNT 143 10^3/uL (120.0-450.0); WHITE BLOOD COUNT 10.8 10^3/uL (4.5-11.0)
[2018-03-02 08:31] LABS: LYMPHOCYTE 3 % (22.0-35.0); MONOCYTE 3 % (1.0-6.0); NEUTROPHIL 94 % (50.0-70.0); NUCLEATED RED BLOOD CELL 1 %
[2018-03-02 08:32] LABS: ANISOCYTOSIS SLIGHT; HYPOCHROMIA SLIGHT
[2018-03-02 08:42] LABS: CALCIUM 9.6 mg/dL (8.4-10.5)
[2018-03-02] MEDS: diltiaZEM 180 mg/24 Hours CD Cap PO SCH (10:54)
[2018-03-02] MEDS: Sodium Chloride 0.9% 1,000 ML IV SCH (11:01)
--- NOTE | 2018-03-02 12:22 | CP.PCM.PN ---
Subjective - Date & Time of Evaluation Date of Evaluation: 03/02/18 Time of Evaluation: 11:50 - Subjective Subjective: Still weak looking, no fevers. Objective - Vital Signs/Intake and Output Vital Signs (last 24 hours): Temp Pulse Resp BP Pulse Ox 97.1 F L 94 H 18 140/83 8 L 03/01/18 12:00 03/01/18 18:00 03/01/18 12:00 03/01/18 12:00 02/28/18 00:01 Intake and Output: 03/01/18 03/02/18 18:59 06:59 Intake Total 420 Output Total 1000 Balance -580 - Medications Medications: Current Medications Acetaminophen (Tylenol 325mg Tab) 650 mg PO Q4H PRN PRN Reason: Pain, Mild (1-3) Last Admin: 03/01/18 03:04 Dose: 650 mg Acetaminophen (Tylenol 325mg Tab) 650 mg PO Q4H PRN PRN Reason: Fever >100.5 F Last Admin: 02/25/18 06:11 Dose: 650 mg Albuterol/Ipratropium (Duoneb 3 Mg/0.5 Mg (3 Ml) Ud) 3 ml IH Q2 PRN PRN Reason: Shortness of Breath Last Admin: 03/01/18 09:53 Dose: 3 ml Arformoterol Tartrate (Brovana) 15 mcg IH [id number] [facility] Last Admin: 03/01/18 08:27 Dose: 15 mcg Aspirin (Ecotrin) 81 mg PO DAILY [facility] Last Admin: 03/01/18 10:06 Dose: 81 mg Budesonide (Pulmicort Respules) 0.25 mg IH [id number] [facility] Last Admin: 03/01/18 08:27 Dose: 0.25 mg Diltiazem HCl (Cardizem Cd) 180 mg PO DAILY [facility] Last Admin: 03/01/18 10:07 Dose: 180 mg Furosemide (Lasix) 20 mg IV DAILY [facility] Last Admin: 03/01/18 10:05 Dose: 20 mg Hydralazine HCl (Apresoline) 10 mg PO DAILY PRN PRN Reason: Systolic Blood Pressure >170 Last Admin: 02/28/18 11:49 Dose: 10 mg Ceftaroline Fosamil 400 mg/ (Sodium Chloride) 100 mls @ 100 mls/hr IVPB Q12 [facility]; Protocol Stop: 03/05/18 10:46 Last Admin: 03/01/18 10:08 Dose: 100 mls/hr Daptomycin 650 mg/ Sodium (Chloride) 100 mls @ 200 mls/hr IV QOTHERDAY [facility] Stop: 03/04/18 10:01 Last Admin: 03/01/18 11:12 Dose: 200 mls/hr Sodium Chloride (Sodium Chloride 0.9%) 1,000 mls @ 40 mls/hr IV .Q24H [facility] Last Admin: 03/01/18 10:09 Dose: 40 mls/hr Isosorbide Mononitrate (Imdur Er) 30 mg PO DAILY [facility] Last Admin: 03/01/18 10:06 Dose: 30 mg Levothyroxine Sodium (Synthroid) 25 mcg PO 0600 [facility] Last Admin: 03/01/18 06:17 Dose: 25 mcg Memantine (Namenda) 10 mg PO DAILY [facility] Last Admin: 03/01/18 10:06 Dose: 10 mg Montelukast Sodium (Singulair) 10 mg PO DAILY [facility] Last Admin: 03/01/18 10:06 Dose: 10 mg Pantoprazole Sodium (Protonix Ec Tab) 20 mg PO 0600 [facility] Last Admin: 03/01/18 06:17 Dose: 20 mg Tamsulosin HCl (Flomax) 0.8 mg PO DAILY [facility] Last Admin: 03/01/18 10:06 Dose: 0.8 mg - Labs Labs: 03/01/18 13:30 02/28/18 06:30 PT 16.6 SECONDS (9.4-12.5) H 02/19/18 18:04 INR 1.45 02/19/18 18:04 APTT 25.0 Seconds (25.1-36.5) L 02/19/18 18:04 - Constitutional Appears: Chronically Ill - Head Exam Head Exam: NORMAL INSPECTION - Respiratory Exam Respiratory Exam: Decreased Breath Sounds - Cardiovascular Exam Cardiovascular Exam: +S1, +S2 - GI/Abdominal Exam GI & Abdominal Exam: Soft. absent: Tenderness Assessment and Plan - Assessment and Plan (Free Text) Plan: Assessment severe sepsis due to Methicillin-resistant Staph aureus bacteremia with probable pacemaker lead and pacemaker infection with tricuspid valve endocarditis, in this patient with MRSA bacteremia from 12/30/2017 iron deficiency anemia dyslipidemia COPD CAD S/P CABG with severe ischemic cardiomyopathy S/P pacemaker placement HTN pulmonary HTN Plan continue Daptomycin and Teflaro - will repeat blood cx today and awaiting plan to remove pacemaker and leads will continue to monitor clinically If bacteremia persists without clearance, prognosis is poor - clearance might be achieved if pacemaker /ICD is removed.
--- NOTE | 2018-03-03 01:03 | PN ---
DATE: 03/02/2018 SUBJECTIVE: Patient is 87-year-old male. Patient was seen and examined on 03/02/2018, looking comfortable. No fever. No chills. No nausea, vomiting, or diarrhea. Looking a little bit of weak in the past week. No hematuria. No hematochezia. No headache. No dizziness. PHYSICAL EXAMINATION: VITAL SIGNS: Temperature 97.1, pulse 94, respiratory rate 18, blood pressure 140/83. HEENT: Head normocephalic, atraumatic. Eyes PERRLA. Extraocular muscles intact. Conjunctivae clear. Nose patent. NECK: Supple. No carotid bruits. No JVD or thyromegaly. CHEST: Bilateral symmetrical. HEART: S1 and S2 positive. LUNGS: Clear to auscultation. ABDOMEN: Soft. Bowel sounds positive. No organomegaly. EXTREMITIES: No edema. No cyanosis. NEUROLOGIC: The patient is lethargic, but responding to conversation. MEDICATIONS: Tylenol, albuterol, Brovana, aspirin, Risperdal, Lasix, hydralazine, daptomycin, levothyroxine, Singulair. LABORATORY DATA: We do not have recent labs, but I reviewed old labs. ASSESSMENT AND PLAN: Mr. Faraz Zuñiga, 87-year-old male with leukocytosis, anemia, renal insufficiency, hyperchloremia, severe sepsis due to Staphylococcus aureus bacteremia with probably pacemaker lead, and pacemaker infection with tricuspid valve endocarditis in the patient with methicillin-resistant Staphylococcus aureus bacteremia, iron-deficiency anemia, dyslipidemia, chronic obstructive pulmonary disease, coronary artery disease status post artery bypass graft, severe ischemic cardiomyopathy, pacemaker placement, hypertension, pulmonary hypertension. Plan is to continue daptomycin, and Teflaro. Repeat blood cultures today and plan of removal of pacemaker and leads. Actually Dr. Woodward and Dr. Jacobson is talking to Dr. Pena in the [facility] to transfer there and he accepted the patient, waiting for the bed for removal of pacemaker and leads. Meanwhile continue clinically. Prognosis is poor. Gastrointestinal and deep venous thrombosis prophylaxis. Repeat labs. We will follow up. Irasema Rivas MD [facility] # [id number] MTDD
[2018-03-03] MEDS: Levothyroxine 25 MCG TAB PO SCH (06:47)
[2018-03-03] MEDS: Arformoterol 15 mcg/2 ml Inh Sol IH SCH ×3 (08:49→20:25)
[2018-03-03] MEDS: Budesonide 0.25 mg/2 ml Inhal Susp UD IH SCH ×3 (08:50→20:25)
[2018-03-03] MEDS: diltiaZEM 180 mg/24 Hours CD Cap PO SCH (09:27)
[2018-03-03 09:46] LABS: CALCIUM 9.6 mg/dL (8.4-10.5)
--- NOTE | 2018-03-03 15:20 | PN ---
DATE: 03/03/2018 PULMONARY PROGRESS NOTE REFERRING PHYSICIAN: Dr. Rivas. SUBJECTIVE: He is lying in the bed at 45 degrees, older son is at bedside, very poor p.o. intake. Has some cough. No sputum production. No hemoptysis or emesis. No hematuria or diarrhea. OBJECTIVE: GENERAL: No acute distress. VITAL SIGNS: Temperature is 98, heart rate is 91, respiratory rate is 20, blood pressure 160/70, pulse of 96% on nasal cannula. HEENT: Dry mucous membranes, may have some thrush. NECK: Supple. No JVD. LUNGS: Have scattered rhonchi. HEART: S1 and S2. ABDOMEN: Soft, nontender, no organomegaly. EXTREMITIES: Not much edema. NEUROLOGICAL: Awake, alert, does follow simple commands. MEDICATIONS: He is on hydralazine 10 mg daily, Brovana inhaled twice a day, Cardizem CD 180 mg daily, ceftaroline 400 mg every 12 hours, daptomycin 650 mg, DuoNeb every 3 hours p.r.n., Ecotrin 81 mg daily, Flomax 0.8 mg daily, Imdur ER 30 mg daily, Lasix 20 mg daily, Namenda 10 mg daily, Protonix 20 mg daily, Pulmicort inhaled twice a day, Singulair 10 mg daily, IV fluid normal saline 40 mL, Synthroid 25 mcg daily, Tylenol on a p.r.n. basis. LABORATORY DATA: Shows hemoglobin 8.3 yesterday. Sodium 148, potassium 4.2, chloride 117, bicarbonate 24, BUN 42, creatinine 2.3, glucose 85, calcium is 8.6. Repeat blood culture done yesterday, so far there is no growth. Cultures done on 02/26/2018 has Gram-positive cocci. IMPRESSION AND PLAN: Bacteremia endocarditis, pleural effusion, chronic lung disease, cardiac diastolic dysfunction and systolic dysfunction, paroxysmal atrial fibrillation, cardiomyopathy, pulmonary hypertension, coronary artery disease, hyperlipidemia, oropharyngeal dysphagia, bladder outlet obstruction with benign prostatic hypertrophy requiring Mann catheter. I spoke to patient's son at bedside. All the questions are answered. Awaiting to be transferred when bed is available to tertiary care center for discontinuing the AICD and its leads continue antibiotics. Keep head at 45 degrees. Encouraged BiPAP use. Aspiration precaution. We will add nystatin swish and spit for oral care. Followup labs in the morning. We will follow with you. Radha Vail MD
[2018-03-03] MEDS: Nystatin 100,000 Units/ml Oral Susp 5 ml UD PO SCH ×2 (17:20→21:21)
--- NOTE | 2018-03-03 18:59 | CP.PCM.PN ---
Subjective - Date & Time of Evaluation Date of Evaluation: 03/03/18 Time of Evaluation: 09:45 - Subjective Subjective: Looks weak and patient feels tired, no fevers. Objective - Vital Signs/Intake and Output Vital Signs (last 24 hours): Temp Pulse Resp BP Pulse Ox 97.9 F 77 20 154/72 H 95 03/02/18 06:00 03/02/18 10:54 03/02/18 06:00 03/02/18 10:54 03/02/18 06:00 Intake and Output: 03/02/18 03/02/18 06:59 18:59 Intake Total 1500 Output Total 1650 Balance -150 - Medications Medications: Current Medications Acetaminophen (Tylenol 325mg Tab) 650 mg PO Q4H PRN PRN Reason: Pain, Mild (1-3) Last Admin: 03/01/18 03:04 Dose: 650 mg Acetaminophen (Tylenol 325mg Tab) 650 mg PO Q4H PRN PRN Reason: Fever >100.5 F Last Admin: 02/25/18 06:11 Dose: 650 mg Albuterol/Ipratropium (Duoneb 3 Mg/0.5 Mg (3 Ml) Ud) 3 ml IH Q2 PRN PRN Reason: Shortness of Breath Last Admin: 03/02/18 08:00 Dose: 3 ml Arformoterol Tartrate (Brovana) 15 mcg IH [id number] [facility] Last Admin: 03/02/18 08:00 Dose: 15 mcg Aspirin (Ecotrin) 81 mg PO DAILY [facility] Last Admin: 03/02/18 10:54 Dose: 81 mg Budesonide (Pulmicort Respules) 0.25 mg IH [id number] [facility] Last Admin: 03/02/18 08:00 Dose: 0.25 mg Diltiazem HCl (Cardizem Cd) 180 mg PO DAILY [facility] Last Admin: 03/02/18 10:54 Dose: 180 mg Furosemide (Lasix) 20 mg IV DAILY [facility] Last Admin: 03/02/18 10:52 Dose: 20 mg Hydralazine HCl (Apresoline) 10 mg PO DAILY PRN PRN Reason: Systolic Blood Pressure >170 Last Admin: 02/28/18 11:49 Dose: 10 mg Ceftaroline Fosamil 400 mg/ (Sodium Chloride) 100 mls @ 100 mls/hr IVPB Q12 [facility]; Protocol Stop: 03/05/18 10:46 Last Admin: 03/02/18 10:50 Dose: 100 mls/hr Daptomycin 650 mg/ Sodium (Chloride) 100 mls @ 200 mls/hr IV QOTHERDAY [facility] Stop: 03/04/18 10:01 Last Admin: 03/01/18 11:12 Dose: 200 mls/hr Sodium Chloride (Sodium Chloride 0.9%) 1,000 mls @ 40 mls/hr IV .Q24H [facility] Last Admin: 03/02/18 11:01 Dose: 40 mls/hr Isosorbide Mononitrate (Imdur Er) 30 mg PO DAILY [facility] Last Admin: 03/02/18 10:53 Dose: 30 mg Levothyroxine Sodium (Synthroid) 25 mcg PO 0600 [facility] Last Admin: 03/02/18 05:06 Dose: 25 mcg Memantine (Namenda) 10 mg PO DAILY [facility] Last Admin: 03/02/18 10:54 Dose: 10 mg Montelukast Sodium (Singulair) 10 mg PO DAILY [facility] Last Admin: 03/02/18 10:58 Dose: 10 mg Pantoprazole Sodium (Protonix Ec Tab) 20 mg PO 0600 [facility] Last Admin: 03/02/18 05:06 Dose: 20 mg Tamsulosin HCl (Flomax) 0.8 mg PO DAILY [facility] Last Admin: 03/02/18 10:58 Dose: 0.8 mg - Labs Labs: 03/02/18 07:30 03/02/18 07:30 PT 16.6 SECONDS (9.4-12.5) H 02/19/18 18:04 INR 1.45 02/19/18 18:04 APTT 25.0 Seconds (25.1-36.5) L 02/19/18 18:04 - Constitutional Appears: Chronically Ill - Head Exam Head Exam: NORMAL INSPECTION - Respiratory Exam Respiratory Exam: Decreased Breath Sounds - Cardiovascular Exam Cardiovascular Exam: +S1, +S2 - GI/Abdominal Exam GI & Abdominal Exam: Soft. absent: Tenderness Assessment and Plan - Assessment and Plan (Free Text) Plan: Assessment severe sepsis due to Methicillin-resistant Staph aureus bacteremia with probable pacemaker lead and pacemaker infection with tricuspid valve endocarditis, in this patient with MRSA bacteremia from 12/30/2017 iron deficiency anemia dyslipidemia COPD CAD S/P CABG with severe ischemic cardiomyopathy S/P pacemaker placement HTN pulmonary HTN Plan continue Daptomycin and Teflaro - repeat blood cx are negsative so far and awaiting plan to remove pacemaker and leads will continue to monitor clinically If bacteremia persists without clearance, prognosis is poor - clearance might be achieved if pacemaker /ICD is removed.
[2018-03-03] MEDS: Pantoprazole 20 mg EC Tab PO SCH (20:36)
--- NOTE | 2018-03-03 20:49 | PN ---
DATE: 03/03/2018 SUBJECTIVE: The patient is an 87-year-old male. The patient was seen and examined at the bedside on 03/03/2018. Looking comfortable. No fever. No chills. No hematuria or hematochezia. Cough and shortness of breath are better. No sputum production. No hematemesis. No headache or dizziness. PHYSICAL EXAMINATION: VITAL SIGNS: Temperature 98, heart rate 91, respiratory rate 20, blood pressure 160/70, pulse oximetry 96% on nasal canula. HEENT: Head is normocephalic and atraumatic. Eyes PERRLA. Extraocular movements intact. Conjunctivae clear. Nose patent. NECK: Supple. No carotid bruits. No JVD or thyromegaly. CHEST: Bilateral symmetrical. HEART: S1 and S2 positive. LUNGS: Clear to auscultation. ABDOMEN: Soft. Bowel sounds positive. No organomegaly. EXTREMITIES: No edema. No cyanosis. NEUROLOGIC: The patient is awake and alert, follows simple commands. MEDICATIONS: Hydralazine, Brovana, Cardizem, Ceftriaxone, daptomycin, DuoNeb, Ecotrin, Flomax, Imdur, Lasix, Namenda, Protonix, Pulmicort, Singulair, Synthroid, and Tylenol. LABORATORY DATA: Hemoglobin 8.3. Sodium 148, potassium 4.2, BUN 42, creatinine 2.3, glucose 85. ASSESSMENT AND PLAN: Mr. Faraz Zuñiga is an 87-year-old male with multiple medical problems, bacteremia, getting treatment for endocarditis, pleural effusion, chronic obstructive lung disease, cardiac diastolic dysfunction and systolic dysfunction, paroxysmal atrial fibrillation, cardiomyopathy, pulmonary hypertension, coronary artery disease, hypercholesterolemia, has pacemaker, oropharyngeal dysphagia, bladder outlet obstruction, has benign prostatic hypertrophy. Requiring Mann catheter. [facility] of the pacemaker advised by Dr. Crystal. The family is aware of that. Meanwhile, continue present treatment, encourage bilevel positive airway pressure. Aspiration precaution. We will follow up. Irasema Rivas MD [facility]
[2018-03-03] MEDS: Sodium Chloride 0.9% 1,000 ML IV SCH (22:33)
[2018-03-04] MEDS: Albuterol-Ipratrop 3 mg / 0.5 (3 ml) UD IH PRN (02:13)
[2018-03-04] MEDS: Pantoprazole 20 mg EC Tab PO SCH (05:14)
[2018-03-04] MEDS: Levothyroxine 25 MCG TAB PO SCH (05:16)
--- NOTE | 2018-03-04 07:08 | CP.PCM.PN ---
Subjective - Date & Time of Evaluation Date of Evaluation: 03/04/18 Time of Evaluation: 06:55 - Subjective Subjective: Lying in bed, awake, alert ,no distress, contact isolation Reason for consultation and follow up:Cardiac evaluation of CHF and coronary artery disease, recurrent bacteremia, infected PPM/AICD Seen and examined by me and Objective - Vital Signs/Intake and Output Vital Signs (last 24 hours): Temp Pulse Resp BP Pulse Ox 97.9 F 78 19 172/74 H 94 L 03/04/18 06:00 03/04/18 06:00 03/04/18 06:00 03/04/18 06:00 03/04/18 06:00 Intake and Output: 03/04/18 03/04/18 06:59 18:59 Intake Total 840 Output Total 200 Balance 640 - Medications Medications: Current Medications Acetaminophen (Tylenol 325mg Tab) 650 mg PO Q4H PRN PRN Reason: Pain, Mild (1-3) Last Admin: 03/01/18 03:04 Dose: 650 mg Acetaminophen (Tylenol 325mg Tab) 650 mg PO Q4H PRN PRN Reason: Fever >100.5 F Last Admin: 02/25/18 06:11 Dose: 650 mg Albuterol/Ipratropium (Duoneb 3 Mg/0.5 Mg (3 Ml) Ud) 3 ml IH Q2 PRN PRN Reason: Shortness of Breath Last Admin: 03/04/18 02:13 Dose: 3 ml Arformoterol Tartrate (Brovana) 15 mcg IH [id number] [facility] Last Admin: 03/03/18 20:25 Dose: Not Given Aspirin (Ecotrin) 81 mg PO DAILY [facility] Last Admin: 03/03/18 09:27 Dose: 81 mg Budesonide (Pulmicort Respules) 0.25 mg IH [id number] [facility] Last Admin: 03/03/18 20:25 Dose: Not Given Diltiazem HCl (Cardizem Cd) 180 mg PO DAILY [facility] Last Admin: 03/03/18 09:27 Dose: 180 mg Furosemide (Lasix) 20 mg IV DAILY [facility] Last Admin: 03/03/18 09:26 Dose: 20 mg Hydralazine HCl (Apresoline) 10 mg PO DAILY PRN PRN Reason: Systolic Blood Pressure >170 Last Admin: 03/04/18 06:55 Dose: 10 mg Ceftaroline Fosamil 400 mg/ (Sodium Chloride) 100 mls @ 100 mls/hr IVPB Q12 [facility]; Protocol Stop: 03/05/18 10:46 Last Admin: 03/03/18 21:21 Dose: 100 mls/hr Daptomycin 650 mg/ Sodium (Chloride) 100 mls @ 200 mls/hr IV QOTHERDAY MARIUSZ Stop: 03/04/18 10:01 Last Admin: 03/03/18 11:46 Dose: 200 mls/hr Sodium Chloride (Sodium Chloride 0.9%) 1,000 mls @ 40 mls/hr IV .Q24H [facility] Last Admin: 03/03/18 22:33 Dose: 40 mls/hr Isosorbide Mononitrate (Imdur Er) 30 mg PO DAILY [facility] Last Admin: 03/03/18 09:27 Dose: 30 mg Levothyroxine Sodium (Synthroid) 25 mcg PO 0600 [facility] Last Admin: 03/04/18 05:16 Dose: 25 mcg Memantine (Namenda) 10 mg PO DAILY [facility] Last Admin: 03/03/18 09:27 Dose: 10 mg Montelukast Sodium (Singulair) 10 mg PO DAILY [facility] Last Admin: 03/03/18 09:26 Dose: 10 mg Nystatin (Nystatin Oral Susp) 5 ml PO QID [facility] Last Admin: 03/03/18 21:21 Dose: 5 ml Pantoprazole Sodium (Protonix Ec Tab) 20 mg PO 0600 [facility] Last Admin: 03/04/18 05:14 Dose: 20 mg Tamsulosin HCl (Flomax) 0.8 mg PO DAILY [facility] Last Admin: 03/03/18 09:26 Dose: 0.8 mg - Labs Labs: 03/02/18 07:30 03/03/18 07:30 PT 16.6 SECONDS (9.4-12.5) H 02/19/18 18:04 INR 1.45 02/19/18 18:04 APTT 25.0 Seconds (25.1-36.5) L 02/19/18 18:04 - Constitutional Appears: Non-toxic, No Acute Distress - Head Exam Head Exam: NORMAL INSPECTION, NORMOCEPHALIC - Eye Exam Eye Exam: Normal appearance Pupil Exam: NORMAL ACCOMODATION - ENT Exam ENT Exam: Mucous Membranes Moist, Normal Exam - Respiratory Exam Respiratory Exam: Decreased Breath Sounds, NORMAL BREATHING PATTERN - Cardiovascular Exam Cardiovascular Exam: REGULAR RHYTHM, +S1, +S2 Additional comments: Telemetry NSR 60's PPM/AICD - GI/Abdominal Exam GI & Abdominal Exam: Soft, Normal Bowel Sounds - Exam Additional comments: sol catheter - Extremities Exam Extremities Exam: Full ROM, Normal Capillary Refill - Neurological Exam Neurological Exam: Alert, Awake - Psychiatric Exam Psychiatric exam: Normal Affect, Normal Mood - Skin Skin Exam: Dry, Normal Color, Warm Assessment and Plan - Assessment and Plan (Free Text) Assessment: An 87 year old male who came from [facility] due to altered mental status, chest pain and shortness of breath. History of GI bleed, anemia, chronic renal failure, coronary artery disease post CABG, Afib and COPD, systolic dysfunction CHF. Elevated troponin 0.29/0.28. Echo done 01/22/18 LVEF 15-25%, Trace AR/MR, moderate TR RVSP 75 mmHg,moderate to severe pulmonary hypertension. Will treat medically for now for elevated troponin. No cardiac catheterization for now due to renal insufficiency. Denies chest pain now. ANDRE was not done from previous admission due to severe dementia and agitation due to risk of perforation. Consult was called again to evaluate and possible ANDRE to rule out endocarditis due to recurrent bacteremia. 02/25/18 Repeat echo done, showed echogenic mobile structure attached to tricuspid valve consistent with vegetation tricuspid valve endocarditis. Dr. Pena consulted for removal of AICD.For possible laser lead extraction and transfer to [facility] if son agrees and consent for procedure. Plan: Vegetation tricuspid valve endocarditis Son of patient agreed for laser lead extraction as per Dr. Jean Pena and partner will do laser lead extraction of PPM/AICD For transfer to [facility] for the procedure,awaiting bed availability No distress, on isolation precaution Denies chest pain Heart rate stable Blood pressure Elevated this morning,given PRN Hydralazine Bacteremia, ID on consult Continue antibiotics as per ID On ASA 81 mg daily, Cardizem 180 mg daily, Lasix 40 mg daily, Imdur ER 30 mg daily,Synthroid 25 mcg daily,Flomax 0.8 mg daily Continue current medications Continue current treatment Nutritional support Will follow up Plan and treatment discussed with Dr. Woodward
[2018-03-04] MEDS: Arformoterol 15 mcg/2 ml Inh Sol IH SCH ×2 (07:53→20:08)
[2018-03-04] MEDS: Budesonide 0.25 mg/2 ml Inhal Susp UD IH SCH ×2 (07:54→20:08)
[2018-03-04 07:57] LABS: ALB/GLOB RATIO 0.6 (1.1-1.8); ALBUMIN 2.8 g/dL (3.0-4.8); CALCIUM 9.9 mg/dL (8.4-10.5)
--- NOTE | 2018-03-04 08:16 | PN ---
DATE: 03/01/2018 ADDITIONAL PROGRESS NOTE LOCATION: The patient is in room 277, bed 1. Detailed note has been already written by Marely Padilla APN, and this is an additional note. I spoke with the son today about the patient's bacteremia and persistent blood cultures positive with endocarditis and infected AICD in the patient, because son wanted to have 24 hours to think about it. So, I did follow-up discussion with him, and he agreed that the patient can go for removal of the infected device and that message has been given to Dr. Crystal, school age lead teacher, that son who has power of tax attorney agreed for his procedure and necessary arrangement can be made for the transfer of the patient. In the meantime, we will continue present therapy, and we will monitor him. Radha Jacobson MD
--- NOTE | 2018-03-04 10:37 | CP.PCM.PN ---
<Marko Galdamez - Last Filed: 03/04/18 10:31> Subjective - Date & Time of Evaluation Date of Evaluation: 03/04/18 Time of Evaluation: 09:15 - Subjective Subjective: ID Progress Note Patient seen and examined at bedside. Patient states he does not feel well overall. Denies chest pain, shortness of breath, nausea, vomiting, diarrhea, fever, chills. Objective - Vital Signs/Intake and Output Vital Signs (last 24 hours): Temp Pulse Resp BP Pulse Ox 97.9 F 78 19 172/74 H 94 L 03/04/18 06:00 03/04/18 06:00 03/04/18 06:00 03/04/18 06:00 03/04/18 06:00 Intake and Output: 03/04/18 03/04/18 06:59 18:59 Intake Total 840 Output Total 200 Balance 640 - Medications Medications: Current Medications Acetaminophen (Tylenol 325mg Tab) 650 mg PO Q4H PRN PRN Reason: Pain, Mild (1-3) Last Admin: 03/01/18 03:04 Dose: 650 mg Acetaminophen (Tylenol 325mg Tab) 650 mg PO Q4H PRN PRN Reason: Fever >100.5 F Last Admin: 02/25/18 06:11 Dose: 650 mg Albuterol/Ipratropium (Duoneb 3 Mg/0.5 Mg (3 Ml) Ud) 3 ml IH Q2 PRN PRN Reason: Shortness of Breath Last Admin: 03/04/18 02:13 Dose: 3 ml Arformoterol Tartrate (Brovana) 15 mcg IH [id number] [facility] Last Admin: 03/04/18 07:53 Dose: 15 mcg Aspirin (Ecotrin) 81 mg PO DAILY [facility] Last Admin: 03/03/18 09:27 Dose: 81 mg Budesonide (Pulmicort Respules) 0.25 mg IH [id number] [facility] Last Admin: 03/04/18 07:54 Dose: 0.25 mg Diltiazem HCl (Cardizem Cd) 180 mg PO DAILY [facility] Last Admin: 03/03/18 09:27 Dose: 180 mg Furosemide (Lasix) 20 mg IV DAILY [facility] Last Admin: 03/03/18 09:26 Dose: 20 mg Hydralazine HCl (Apresoline) 10 mg PO DAILY PRN PRN Reason: Systolic Blood Pressure >170 Last Admin: 03/04/18 06:55 Dose: 10 mg Ceftaroline Fosamil 400 mg/ (Sodium Chloride) 100 mls @ 100 mls/hr IVPB Q12 [facility]; Protocol Stop: 03/05/18 10:46 Last Admin: 03/03/18 21:21 Dose: 100 mls/hr Sodium Chloride (Sodium Chloride 0.9%) 1,000 mls @ 40 mls/hr IV .Q24H [facility] Last Admin: 03/03/18 22:33 Dose: 40 mls/hr Iron Sucrose 200 mg/ Sodium (Chloride) 110 mls @ 110 mls/hr IVPB ONCE ONE Stop: 03/04/18 10:34 Isosorbide Mononitrate (Imdur Er) 30 mg PO DAILY [facility] Last Admin: 03/03/18 09:27 Dose: 30 mg Levothyroxine Sodium (Synthroid) 25 mcg PO 0600 [facility] Last Admin: 03/04/18 05:16 Dose: 25 mcg Memantine (Namenda) 10 mg PO DAILY [facility] Last Admin: 03/03/18 09:27 Dose: 10 mg Montelukast Sodium (Singulair) 10 mg PO DAILY [facility] Last Admin: 03/03/18 09:26 Dose: 10 mg Nystatin (Nystatin Oral Susp) 5 ml PO QID [facility] Last Admin: 03/03/18 21:21 Dose: 5 ml Pantoprazole Sodium (Protonix Ec Tab) 20 mg PO 0600 [facility] Last Admin: 03/04/18 05:14 Dose: 20 mg Tamsulosin HCl (Flomax) 0.8 mg PO DAILY [facility] Last Admin: 03/03/18 09:26 Dose: 0.8 mg - Labs Labs: 03/02/18 07:30 03/04/18 07:00 PT 16.6 SECONDS (9.4-12.5) H 02/19/18 18:04 INR 1.45 02/19/18 18:04 APTT 25.0 Seconds (25.1-36.5) L 02/19/18 18:04 - Constitutional Appears: Toxic, No Acute Distress - Head Exam Head Exam: ATRAUMATIC, NORMAL INSPECTION, NORMOCEPHALIC - ENT Exam ENT Exam: Mucous Membranes Moist - Respiratory Exam Respiratory Exam: Clear to Ausculation Bilateral, NORMAL BREATHING PATTERN. absent: Rales, Rhonchi, Wheezes - Cardiovascular Exam Cardiovascular Exam: RRR, +S1, +S2 - GI/Abdominal Exam GI & Abdominal Exam: Soft, Normal Bowel Sounds. absent: Tenderness - Extremities Exam Extremities Exam: absent: Calf Tenderness, Normal Inspection, Pedal Edema - Neurological Exam Neurological Exam: Alert, Awake, Oriented x3 - Psychiatric Exam Psychiatric exam: Normal Affect, Normal Mood - Skin Skin Exam: Intact, Normal Color, Warm Assessment and Plan - Assessment and Plan (Free Text) Plan: Severe sepsis from MRSA bacteremia likely secondary to pacemaker/lead infection and associated tricuspid valve endocardititis Hx of MRSA bacteremia from 12/30/17 Iron deficiency anemia Hx of COPD Hx of dyslipidemia Hx og CABG with ischemic cardiomyopathy Hx of pacemaker placement Hx of HTN Hx of pulm HTN Plan Continue Daptomycin and Teflaro Repeat blood cultures negative, initial blood cultures showed MRSA Pending transfer for pacemaker and lead removal Continue to monitor <Eyad Lubin S - Last Filed: 03/04/18 14:07> Objective - Vital Signs/Intake and Output Vital Signs (last 24 hours): Temp Pulse Resp BP Pulse Ox 97.9 F 78 19 156/79 H 94 L 03/04/18 06:00 03/04/18 06:00 03/04/18 06:00 03/04/18 11:25 03/04/18 06:00 Intake and Output: 03/04/18 03/04/18 06:59 18:59 Intake Total 840 Output Total 200 Balance 640 - Medications Medications: Current Medications Acetaminophen (Tylenol 325mg Tab) 650 mg PO Q4H PRN PRN Reason: Pain, Mild (1-3) Last Admin: 03/04/18 11:25 Dose: 650 mg Acetaminophen (Tylenol 325mg Tab) 650 mg PO Q4H PRN PRN Reason: Fever >100.5 F Last Admin: 02/25/18 06:11 Dose: 650 mg Albuterol/Ipratropium (Duoneb 3 Mg/0.5 Mg (3 Ml) Ud) 3 ml IH Q2 PRN PRN Reason: Shortness of Breath Last Admin: 03/04/18 02:13 Dose: 3 ml Arformoterol Tartrate (Brovana) 15 mcg IH [id number] [facility] Last Admin: 03/04/18 07:53 Dose: 15 mcg Aspirin (Ecotrin) 81 mg PO DAILY [facility] Last Admin: 03/04/18 11:25 Dose: 81 mg Budesonide (Pulmicort Respules) 0.25 mg IH [id number] [facility] Last Admin: 03/04/18 07:54 Dose: 0.25 mg Diltiazem HCl (Cardizem Cd) 180 mg PO DAILY [facility] Last Admin: 03/04/18 11:25 Dose: 180 mg Furosemide (Lasix) 20 mg IV DAILY [facility] Last Admin: 03/04/18 11:25 Dose: 20 mg Hydralazine HCl (Apresoline) 10 mg PO DAILY PRN PRN Reason: Systolic Blood Pressure >170 Last Admin: 03/04/18 06:55 Dose: 10 mg Ceftaroline Fosamil 400 mg/ (Sodium Chloride) 100 mls @ 100 mls/hr IVPB Q12 [facility]; Protocol Stop: 03/05/18 10:46 Last Admin: 03/04/18 12:30 Dose: 100 mls/hr Sodium Chloride (Sodium Chloride 0.9%) 1,000 mls @ 40 mls/hr IV .Q24H [facility] Last Admin: 03/04/18 11:26 Dose: 40 mls/hr Isosorbide Mononitrate (Imdur Er) 30 mg PO DAILY [facility] Last Admin: 03/04/18 11:25 Dose: 30 mg Levothyroxine Sodium (Synthroid) 25 mcg PO 0600 [facility] Last Admin: 03/04/18 05:16 Dose: 25 mcg Memantine (Namenda) 10 mg PO DAILY [facility] Last Admin: 03/04/18 11:26 Dose: 10 mg Montelukast Sodium (Singulair) 10 mg PO DAILY [facility] Last Admin: 03/04/18 11:26 Dose: 10 mg Nystatin (Nystatin Oral Susp) 5 ml PO QID [facility] Last Admin: 03/04/18 13:27 Dose: Not Given Pantoprazole Sodium (Protonix Ec Tab) 20 mg PO 0600 [facility] Last Admin: 03/04/18 05:14 Dose: 20 mg Tamsulosin HCl (Flomax) 0.8 mg PO DAILY [facility] Last Admin: 03/04/18 11:24 Dose: 0.8 mg - Labs Labs: 03/02/18 07:30 03/04/18 07:00 PT 16.6 SECONDS (9.4-12.5) H 02/19/18 18:04 INR 1.45 02/19/18 18:04 APTT 25.0 Seconds (25.1-36.5) L 02/19/18 18:04 Assessment and Plan - Assessment and Plan (Free Text) Plan: Infectious diseases Attending Physician Attestation Patient seen and examined, discussed with medical data entry clerk. I have reviewed the patient's history of present illness, past medical, social, personal and family histories, pertinent physical exam findings, course so far in this hospital admission, pertinent laboratory and imaging results. I agree with the above findings, assessment and plan. In addition, will continue Daptomycin and Teflaro for sepsis from persistent MRSA bacteremia from TV endocarditis and infected pacemaker and leads. Follow up plan for removal of pacemaker and leads. Repeat blood cx are negative so far.
[2018-03-04] MEDS: diltiaZEM 180 mg/24 Hours CD Cap PO SCH (11:25)
[2018-03-04] MEDS: Nystatin 100,000 Units/ml Oral Susp 5 ml UD PO SCH ×4 (11:25→23:37)
[2018-03-04] MEDS: Sodium Chloride 0.9% 1,000 ML IV SCH (11:26)
--- NOTE | 2018-03-04 11:55 | PN ---
PULMONARY PROGRESS NOTE DATE: 03/04/2018 REFERRING PHYSICIAN: Irasema Rivas MD SUBJECTIVE: The patient is sitting up in bed. No acute distress. Has occasional cough. No sputum production. No hemoptysis, hematosis, hematuria, diarrhea reported. OBJECTIVE GENERAL: No acute distress. VITAL SIGNS: Blood pressure 155/68, pulse 74 and temperature 98 and oxygen saturation 93%. HEENT: Moist mucus membranes. NECK: Supple. No JVD. RESPIRATORY: Decrease breath sounds on bases bilaterally. CARDIOPULMONARY: S1 and S2, audible. ABDOMEN: Soft and nontender. No distention. Positive bowel sounds. No organomegaly. EXTREMITIES: No bilateral lower extremity edema. NEUROLOGIC: Awake, alert, and verbal. Follow simple commands. LABORATORY DATA: Reviewed. Sodium 151, potassium 4.3, chloride 119, carbon dioxide 26, anion gap 10, BUN 40, creatinine 2.3, GFR 33, random glucose 88, calcium 9.9, total bilirubin 0.8, AST 25, ALT 16, alkaline phosphatase 127, total protein 7.4, albumin 2.8, globulin 4.6 and albumin-globulin ratio 0.6. MEDICATIONS: Reviewed. Tylenol 650 mg every 4 hours p.r.n. for mild pain, Tylenol 650 mg every 4 hours p.r.n. for fever greater than 100.5, DuoNeb 3 mL inhalation every 2 hours p.r.n., Brovana 15 mcg every 12 hours, aspirin 81 mg p.o. daily, Pulmicort 0.25 mg inhalation every 12 hours, ceftaroline fosamil 400 mg every 12 hours, Cardizem 180 mg p.o. daily, Lasix 20 mg IV daily, hydralazine 10 mg p.o. daily p.r.n., isosorbide mononitrate 30 mg p.o. daily, Synthroid mcg daily, Namenda 10 mg p.o. daily, Singulair 10 mg p.o. daily, nystatin 5 mg p.o. 4 times a day, Protonix 20 mg daily, sodium chloride 1000 mL at 40 mL per hour, IV fluid and Flomax 0.8 mg p.o. daily. IMPRESSION AND PLAN: Bacteremia, endocarditis, pleural effusion, chronic lung disease, cardiac diastolic dysfunction and systolic dysfunction. Paroxysmal atrial fibrillation, cardiomyopathy, pulmonary hypertension, oropharyngeal dysphagia, hyperlipidemia, coronary artery disease, bladder outlet obstruction with benign prostatic hypertrophy requiring Mann catheter. The patient is currently awaiting to be transferred to tertiary care center for discontinuation of automatic implantable cardioverter-defibrillator. Continue antibiotic therapy, head of bed elevated 45 degrees, continue to encourage bilevel positive airway pressure use, gastric prophylaxis, deep venous thrombosis prophylaxis and aspiration precaution. The patient needs close monitoring with meals. Need to follow electrolytes closely. This patient was seen and examined with Dr. Vail. Discussed assessment and plan as described above. Thank you for this consult and we will follow with you. Cornel Collins APN Radha Vail MD
--- NOTE | 2018-03-04 13:58 | CP.PCM.APN ---
Subjective - Date & Time of Evaluation Date of Evaluation: 03/04/18 Time of Evaluation: 09:40 - Subjective Subjective: pt seen and examined, being bathed by nursing staff , NAD Review of Systems - Constitutional Constitutional: Fatigue, Malaise Objective - Vital Signs/Intake and Output Vital Signs (last 24 hours): Temp Pulse Resp BP Pulse Ox 97.9 F 78 19 156/79 H 94 L 03/04/18 06:00 03/04/18 06:00 03/04/18 06:00 03/04/18 11:25 03/04/18 06:00 Intake and Output: 03/04/18 03/04/18 06:59 18:59 Intake Total 840 Output Total 200 Balance 640 - Medications Medications: Current Medications Acetaminophen (Tylenol 325mg Tab) 650 mg PO Q4H PRN PRN Reason: Pain, Mild (1-3) Last Admin: 03/04/18 11:25 Dose: 650 mg Acetaminophen (Tylenol 325mg Tab) 650 mg PO Q4H PRN PRN Reason: Fever >100.5 F Last Admin: 02/25/18 06:11 Dose: 650 mg Albuterol/Ipratropium (Duoneb 3 Mg/0.5 Mg (3 Ml) Ud) 3 ml IH Q2 PRN PRN Reason: Shortness of Breath Last Admin: 03/04/18 02:13 Dose: 3 ml Arformoterol Tartrate (Brovana) 15 mcg IH [id number] [facility] Last Admin: 03/04/18 07:53 Dose: 15 mcg Aspirin (Ecotrin) 81 mg PO DAILY [facility] Last Admin: 03/04/18 11:25 Dose: 81 mg Budesonide (Pulmicort Respules) 0.25 mg IH [id number] [facility] Last Admin: 03/04/18 07:54 Dose: 0.25 mg Diltiazem HCl (Cardizem Cd) 180 mg PO DAILY [facility] Last Admin: 03/04/18 11:25 Dose: 180 mg Furosemide (Lasix) 20 mg IV DAILY [facility] Last Admin: 03/04/18 11:25 Dose: 20 mg Hydralazine HCl (Apresoline) 10 mg PO DAILY PRN PRN Reason: Systolic Blood Pressure >170 Last Admin: 03/04/18 06:55 Dose: 10 mg Ceftaroline Fosamil 400 mg/ (Sodium Chloride) 100 mls @ 100 mls/hr IVPB Q12 [facility]; Protocol Stop: 03/05/18 10:46 Last Admin: 03/04/18 12:30 Dose: 100 mls/hr Sodium Chloride (Sodium Chloride 0.9%) 1,000 mls @ 40 mls/hr IV .Q24H [facility] Last Admin: 03/04/18 11:26 Dose: 40 mls/hr Isosorbide Mononitrate (Imdur Er) 30 mg PO DAILY [facility] Last Admin: 03/04/18 11:25 Dose: 30 mg Levothyroxine Sodium (Synthroid) 25 mcg PO 0600 [facility] Last Admin: 03/04/18 05:16 Dose: 25 mcg Memantine (Namenda) 10 mg PO DAILY [facility] Last Admin: 03/04/18 11:26 Dose: 10 mg Montelukast Sodium (Singulair) 10 mg PO DAILY [facility] Last Admin: 03/04/18 11:26 Dose: 10 mg Nystatin (Nystatin Oral Susp) 5 ml PO QID [facility] Last Admin: 03/04/18 13:27 Dose: Not Given Pantoprazole Sodium (Protonix Ec Tab) 20 mg PO 0600 [facility] Last Admin: 03/04/18 05:14 Dose: 20 mg Tamsulosin HCl (Flomax) 0.8 mg PO DAILY [facility] Last Admin: 03/04/18 11:24 Dose: 0.8 mg - Labs Labs: 03/02/18 07:30 03/04/18 07:00 PT 16.6 SECONDS (9.4-12.5) H 02/19/18 18:04 INR 1.45 02/19/18 18:04 APTT 25.0 Seconds (25.1-36.5) L 02/19/18 18:04 - Constitutional Appears: No Acute Distress - Head Exam Head Exam: NORMAL INSPECTION, NORMOCEPHALIC - Neck Exam Neck Exam: Normal Inspection - Respiratory Exam Respiratory Exam: Decreased Breath Sounds, NORMAL BREATHING PATTERN - Cardiovascular Exam Cardiovascular Exam: +S1, +S2 Additional comments: ppm intact to left chestwall - Exam Exam: NORMAL INSPECTION (sol cath in place ) - Neurological Exam Neurological Exam: Alert, Awake - Skin Skin Exam: Dry, Intact, Warm Assessment and Plan - Assessment and Plan (Free Text) Plan: A/P 87 yr old with pmh sig fo rchf, gi bleed, anemia, CRF, Afib, Copd, CABG/ AICD, hx MRSA bacteremai and e Coli UTI who was transferred from [facility] for lethargy, ams, sob and cp now undergoing workup for sepsis / pneumonia with ID consult on IV Daptomycin and Merrem with ID workup in progress including panculture that have all grown MRSA Sw note , cardio notes rev'd ID note regarding strong recommendation for ANDRE in setting of PPM and recurrent bacteremia spoke to weight recorder re : ANDRE - per DR Woodward treat medically for endocarditis with 4 to 6 wks antibiotics w/o ANDRE due to risk/comorbidities. Spoke with ID - persistent recurrent bacteremia pt needs to continue on IV dapto or have ppm removed. Son agreed to ppm removal on Sunday. will order follow up cbc and give IV Venofer for noted iron def anemia. spoke to Dr Crystal who states he will provide update today on transfer to [facility] for ppm laser lead removal.
--- NOTE | 2018-03-04 17:39 | PN ---
DATE: 03/04/2018 REASON FOR CONSULTATION: Followup, cardiac evaluation, CHF, coronary artery disease , recurrent bacteremia, persistent bacteremia, infected PPM, AICD, tricuspid valve endocarditis for removal of defibrillator. This note is in addition to dictated by nurse practitioner Marely Padilla. The patient has been seen by Dr. Crystal and for transfer to [facility] upon availability of bed for removal of AICD. Discussed with the patient's son discussed with Dr. Crystal. We will follow with you. Interim, continue antibiotics. Overall, the patient's critical and long-term prognosis is guarded. Thank you Dr. Rivas for providing this opportunity in taking care of the patient Faraz Zuñiga. Radha Woodward MD
--- NOTE | 2018-03-04 22:43 | PCM.URO ---
Urology Progress Note - Objective Lab Studies: Reviewed (ct scan notes that the sol is not in proper position we will change the sol at some point pt should have a cystoscopy-- the issue is medical clearance) Lab Results Last 24 Hours: Laboratory Results - last 24 hr 03/04/18 03/04/18 07:00 11:39 Sodium 151 H Potassium 4.3 Chloride 119 H Carbon Dioxide 26 Anion Gap 10 BUN 40 H Creatinine 2.3 H Est GFR ( Amer) 33 Est GFR (Non-Af Amer) 27 POC Glucose (mg/dL) 100 Random Glucose 98 Calcium 9.9 Total Bilirubin 0.8 AST 25 ALT 16 Alkaline Phosphatase 127 H D Total Protein 7.4 Albumin 2.8 L Globulin 4.6 Albumin/Globulin Ratio 0.6 L Intake & Output: Intake & Output 03/04/18 03/04/18 03/05/18 06:59 18:59 06:59 Intake Total 840 Output Total 200 Balance 640 Weight 149 lb 9.6 oz Intake: Oral 240 Other 600 Output: Urine 200 Urethral (Sol) 200 Other: # Bowel Movements 0 Vital Signs: Vital Signs - 24 hr 03/04/18 03/04/18 03/04/18 00:01 01:53 05:51 Temperature 98 F Pulse Rate 74 64 72 Respiratory 19 Rate Blood Pressure 155/68 H O2 Sat by Pulse 93 L Oximetry 03/04/18 03/04/18 03/04/18 06:00 10:00 11:25 Temperature 97.9 F Pulse Rate 78 98 H Respiratory 19 Rate Blood Pressure 172/74 H 156/79 H O2 Sat by Pulse 94 L Oximetry 03/04/18 03/04/18 03/04/18 12:00 14:00 18:00 Temperature 97.9 F 97.8 F Pulse Rate 82 88 75 Respiratory 18 20 Rate Blood Pressure 148/64 167/74 H O2 Sat by Pulse Oximetry
--- NOTE | 2018-03-04 23:49 | PN ---
DATE: 03/04/2018 SUBJECTIVE: The patient is an 87-year-old male. The patient was seen and examined at the bedside on 03/04/2018. No change in the status. Got bath from the nursing staff. No fever. No chills. No hematuria. No hematochezia. No headache. No dizziness. Reviewed his nurse practitioner's note. Feeling little bit fatigued and malaise. PHYSICAL EXAMINATION VITAL SIGNS: Temperature 97.9, heart rate 78, respiratory rate 19, blood pressure 156/79, and pulse oximetry 94. HEENT: Head; normocephalic and atraumatic. Eyes; PERRLA. Extraocular movements intact. Conjunctivae clear. Nose patent. Mucous membranes moist. NECK: Supple. No carotid bruits. No JVD or thyromegaly. CHEST: Bilateral symmetrical. HEART: S1 and S2 positive. LUNGS: Clear to auscultation. ABDOMEN: Soft. Bowel sounds positive. No organomegaly. EXTREMITIES: No edema. No cyanosis. NEUROLOGIC: The patient is little bit lethargic, but responding to conversation. MEDICATIONS: Tylenol, DuoNeb, Brovana, aspirin, Pulmicort, diltiazem, furosemide, hydralazine, ceftaroline, isosorbide, levothyroxine, Namenda, Singulair, nystatin, Protonix, and Flomax. LABORATORY DATA: White blood cells 10.8, hemoglobin 8.3, hematocrit 27, and platelets 143. Sodium 151, potassium 4.3, BUN 40, creatinine 2.2, and glucose 98. ASSESSMENT AND PLAN: Mr. Faraz Zuñiga is an 87-year-old male with anemia, hypernatremia, dehydrated, renal insufficiency, hyperchloremia, has multiple medical problem, history of gastrointestinal bleeding, chronic renal failure, atrial fibrillation, chronic obstructive pulmonary disease, coronary artery bypass graft, automatic implantable cardioverter-defibrillator, history of methicillin-resistant Staphylococcus aureus bacteremia and Escherichia coli urinary tract infection, who was transferred from [facility] for lethargy, altered mental status, shortness of breath, now undergoing workup for sepsis, pneumonia with Infectious Disease is on the case. Getting IV daptomycin and Merrem. With Infectious Disease workup including green cultures that have all grown methicillin-resistant Staphylococcus aureus. Noted Raysa's note and caster investment casting note. According to Infectious Disease, the patient needs transesophageal echocardiography. According to Cardiology, the patient is at high risk, we have to treat endocarditis. We have spoke to Dr. Crystal at [facility] for transferring the patient there for laser-lead removal. We are expecting call from Dr. Crystal. We will follow up. Irasema Rivas MD MTDD
[2018-03-05] MEDS: Albuterol-Ipratrop 3 mg / 0.5 (3 ml) UD IH PRN (02:19)
[2018-03-05] MEDS: Levothyroxine 25 MCG TAB PO SCH (05:51)
[2018-03-05] MEDS: Pantoprazole 20 mg EC Tab PO SCH (05:51)
[2018-03-05] MEDS: Sodium Chloride 0.9% 1,000 ML IV SCH ×2 (05:53→10:40)
--- NOTE | 2018-03-05 06:33 | CP.PCM.PN ---
Subjective - Date & Time of Evaluation Date of Evaluation: 03/05/18 Time of Evaluation: 06:30 - Subjective Subjective: No distress, feels okay, Lying in bed, awake, alert , contact isolation Reason for consultation and follow up:Cardiac evaluation of CHF and coronary artery disease, recurrent bacteremia, infected PPM/AICD Seen and examined by me and Objective - Vital Signs/Intake and Output Vital Signs (last 24 hours): Temp Pulse Resp BP Pulse Ox 97.8 F 75 20 167/74 H 94 L 03/04/18 18:00 03/04/18 18:00 03/04/18 18:00 03/04/18 18:00 03/04/18 06:00 - Medications Medications: Current Medications Acetaminophen (Tylenol 325mg Tab) 650 mg PO Q4H PRN PRN Reason: Pain, Mild (1-3) Last Admin: 03/04/18 11:25 Dose: 650 mg Acetaminophen (Tylenol 325mg Tab) 650 mg PO Q4H PRN PRN Reason: Fever >100.5 F Last Admin: 02/25/18 06:11 Dose: 650 mg Albuterol/Ipratropium (Duoneb 3 Mg/0.5 Mg (3 Ml) Ud) 3 ml IH Q2 PRN PRN Reason: Shortness of Breath Last Admin: 03/05/18 02:19 Dose: 3 ml Arformoterol Tartrate (Brovana) 15 mcg IH [id number] [facility] Last Admin: 03/04/18 20:08 Dose: 15 mcg Aspirin (Ecotrin) 81 mg PO DAILY [facility] Last Admin: 03/04/18 11:25 Dose: 81 mg Budesonide (Pulmicort Respules) 0.25 mg IH [id number] [facility] Last Admin: 03/04/18 20:08 Dose: 0.25 mg Diltiazem HCl (Cardizem Cd) 180 mg PO DAILY [facility] Last Admin: 03/04/18 11:25 Dose: 180 mg Furosemide (Lasix) 20 mg IV DAILY [facility] Last Admin: 03/04/18 11:25 Dose: 20 mg Hydralazine HCl (Apresoline) 10 mg PO DAILY PRN PRN Reason: Systolic Blood Pressure >170 Last Admin: 03/04/18 06:55 Dose: 10 mg Ceftaroline Fosamil 400 mg/ (Sodium Chloride) 100 mls @ 100 mls/hr IVPB Q12 [facility]; Protocol Stop: 03/05/18 10:46 Last Admin: 03/04/18 23:37 Dose: 100 mls/hr Sodium Chloride (Sodium Chloride 0.9%) 1,000 mls @ 40 mls/hr IV .Q24H [facility] Last Admin: 03/05/18 05:53 Dose: 40 mls/hr Isosorbide Mononitrate (Imdur Er) 30 mg PO DAILY [facility] Last Admin: 03/04/18 11:25 Dose: 30 mg Levothyroxine Sodium (Synthroid) 25 mcg PO 0600 [facility] Last Admin: 03/05/18 05:51 Dose: 25 mcg Memantine (Namenda) 10 mg PO DAILY [facility] Last Admin: 03/04/18 11:26 Dose: 10 mg Montelukast Sodium (Singulair) 10 mg PO DAILY [facility] Last Admin: 03/04/18 11:26 Dose: 10 mg Nystatin (Nystatin Oral Susp) 5 ml PO QID [facility] Last Admin: 03/04/18 23:37 Dose: 5 ml Pantoprazole Sodium (Protonix Ec Tab) 20 mg PO 0600 [facility] Last Admin: 03/05/18 05:51 Dose: 20 mg Tamsulosin HCl (Flomax) 0.8 mg PO DAILY [facility] Last Admin: 03/04/18 11:24 Dose: 0.8 mg - Labs Labs: 03/02/18 07:30 03/04/18 07:00 PT 16.6 SECONDS (9.4-12.5) H 02/19/18 18:04 INR 1.45 02/19/18 18:04 APTT 25.0 Seconds (25.1-36.5) L 02/19/18 18:04 - Constitutional Appears: Non-toxic, No Acute Distress - Head Exam Head Exam: NORMAL INSPECTION, NORMOCEPHALIC - Eye Exam Eye Exam: Normal appearance Pupil Exam: NORMAL ACCOMODATION - ENT Exam ENT Exam: Mucous Membranes Dry - Respiratory Exam Respiratory Exam: Decreased Breath Sounds, Clear to Ausculation Bilateral, NORMAL BREATHING PATTERN - Cardiovascular Exam Cardiovascular Exam: +S1, +S2 Additional comments: PPM/AICD - GI/Abdominal Exam GI & Abdominal Exam: Soft, Normal Bowel Sounds - Exam Additional comments: sol catheter - Neurological Exam Neurological Exam: Alert, Awake - Psychiatric Exam Psychiatric exam: Normal Affect, Normal Mood - Skin Skin Exam: Dry, Normal Color, Warm Assessment and Plan - Assessment and Plan (Free Text) Assessment: An 87 year old male who came from [facility] due to altered mental status, chest pain and shortness of breath. History of GI bleed, anemia, chronic renal failure, coronary artery disease post CABG, Afib and COPD, systolic dysfunction CHF. Elevated troponin 0.29/0.28. Echo done 01/22/18 LVEF 15-25%, T race AR/MR, moderate TR RVSP 75 mmHg,moderate to severe pulmonary hypertension. Will treat medically for now for elevated troponin. No cardiac catheterization for now due to renal insufficiency. Denies chest pain now. ANDRE was not done from previous admission due to severe dementia and agitation due to risk of perforation. Consult was called again to evaluate and possible ANDRE to rule out endocarditis due to recurrent bacteremia. 02/25/18 Repeat echo done, showed echogenic mobile structure attached to tricuspid valve consistent with vegetation tricuspid valve endocarditis. Dr. Pena consulted for removal of AICD. For laser lead extraction and transfer to [facility], son agreed for procedure.Seen by Urology. Plan: Awaiting transfer to [facility] Vegetation tricuspid valve endocarditis Patient's son agreed for laser lead extraction as per Dr. Jean Pena and partner will do laser lead extraction of PPM/AICD No distress, on isolation precaution Denies chest pain Heart rate stable Blood pressure Bacteremia, ID on consult Continue antibiotics as per ID On ASA 81 mg daily, Cardizem 180 mg daily, Lasix 40 mg daily, Imdur ER 30 mg daily,Synthroid 25 mcg daily,Flomax 0.8 mg daily Continue current medications Continue current treatment Nutritional support Will follow up Plan and treatment discussed with Dr. Woodward
[2018-03-05 06:56] LABS: HEMOGLOBIN 7.9 g/dL (14.0-18.0); MEAN CELL VOLUME 86.6 fl (80.0-105.0); MEAN CORPUSCULAR HEMOGLOBIN 25.7 pg (25.0-35.0); MEAN CORPUSCULAR HGB CONC 29.7 g/dl (31.0-37.0); MEAN PLATELET VOLUME 10.6 fl (7.0-11.0); RBC 3.07 10^6/uL (3.5-6.1); RED CELL DISTRIBUTION WIDTH 19.1 % (11.5-14.5); WHITE BLOOD COUNT 6.8 10^3/uL (4.5-11.0)
[2018-03-05] MEDS: Arformoterol 15 mcg/2 ml Inh Sol IH SCH ×2 (07:12→20:46)
[2018-03-05] MEDS: Budesonide 0.25 mg/2 ml Inhal Susp UD IH SCH ×2 (07:12→20:47)
[2018-03-05 07:38] LABS: ALB/GLOB RATIO 0.6 (1.1-1.8); ALBUMIN 2.6 g/dL (3.0-4.8); CALCIUM 9.8 mg/dL (8.4-10.5)
--- NOTE | 2018-03-05 10:22 | CP.PCM.APN ---
Subjective - Date & Time of Evaluation Date of Evaluation: 03/05/18 Time of Evaluation: 09:00 - Subjective Subjective: pt seen in bed, no acute distress noted Review of Systems - Respiratory Respiratory: Dyspnea on Exertion Objective - Vital Signs/Intake and Output Vital Signs (last 24 hours): Temp Pulse Resp BP Pulse Ox 97.8 F 75 20 167/74 H 94 L 03/04/18 18:00 03/04/18 18:00 03/04/18 18:00 03/04/18 18:00 03/04/18 06:00 Intake and Output: 03/05/18 03/05/18 06:59 18:59 Intake Total 1020 Output Total 2 Balance 1018 - Medications Medications: Current Medications Acetaminophen (Tylenol 325mg Tab) 650 mg PO Q4H PRN PRN Reason: Pain, Mild (1-3) Last Admin: 03/04/18 11:25 Dose: 650 mg Acetaminophen (Tylenol 325mg Tab) 650 mg PO Q4H PRN PRN Reason: Fever >100.5 F Last Admin: 02/25/18 06:11 Dose: 650 mg Albuterol/Ipratropium (Duoneb 3 Mg/0.5 Mg (3 Ml) Ud) 3 ml IH Q2 PRN PRN Reason: Shortness of Breath Last Admin: 03/05/18 02:19 Dose: 3 ml Arformoterol Tartrate (Brovana) 15 mcg IH [id number] [facility] Last Admin: 03/05/18 07:12 Dose: 15 mcg Aspirin (Ecotrin) 81 mg PO DAILY [facility] Last Admin: 03/04/18 11:25 Dose: 81 mg Budesonide (Pulmicort Respules) 0.25 mg IH [id number] [facility] Last Admin: 03/05/18 07:12 Dose: 0.25 mg Diltiazem HCl (Cardizem Cd) 180 mg PO DAILY [facility] Last Admin: 03/04/18 11:25 Dose: 180 mg Ferrous Sulfate (Feosol Liq) 300 mg PO BID [facility] Furosemide (Lasix) 20 mg IV DAILY [facility] Last Admin: 03/04/18 11:25 Dose: 20 mg Hydralazine HCl (Apresoline) 10 mg PO DAILY PRN PRN Reason: Systolic Blood Pressure >170 Last Admin: 03/04/18 06:55 Dose: 10 mg Ceftaroline Fosamil 400 mg/ (Sodium Chloride) 100 mls @ 100 mls/hr IVPB Q12 [facility]; Protocol Stop: 03/05/18 10:46 Last Admin: 03/04/18 23:37 Dose: 100 mls/hr Sodium Chloride (Sodium Chloride 0.9%) 1,000 mls @ 40 mls/hr IV .Q24H [facility] Last Admin: 03/05/18 05:53 Dose: 40 mls/hr Isosorbide Mononitrate (Imdur Er) 30 mg PO DAILY [facility] Last Admin: 03/04/18 11:25 Dose: 30 mg Levothyroxine Sodium (Synthroid) 25 mcg PO 0600 [facility] Last Admin: 03/05/18 05:51 Dose: 25 mcg Memantine (Namenda) 10 mg PO DAILY [facility] Last Admin: 03/04/18 11:26 Dose: 10 mg Montelukast Sodium (Singulair) 10 mg PO DAILY [facility] Last Admin: 03/04/18 11:26 Dose: 10 mg Nystatin (Nystatin Oral Susp) 5 ml PO QID [facility] Last Admin: 03/04/18 23:37 Dose: 5 ml Pantoprazole Sodium (Protonix Ec Tab) 20 mg PO 0600 [facility] Last Admin: 03/05/18 05:51 Dose: 20 mg Tamsulosin HCl (Flomax) 0.8 mg PO DAILY [facility] Last Admin: 03/04/18 11:24 Dose: 0.8 mg - Labs Labs: 03/05/18 06:00 03/05/18 06:00 PT 16.6 SECONDS (9.4-12.5) H 02/19/18 18:04 INR 1.45 02/19/18 18:04 APTT 25.0 Seconds (25.1-36.5) L 02/19/18 18:04 - Constitutional Appears: No Acute Distress, Older Than Stated Age - Eye Exam Eye Exam: Normal appearance Pupil Exam: NORMAL ACCOMODATION - Respiratory Exam Respiratory Exam: Decreased Breath Sounds, Prolonged Expiratory Phase - Cardiovascular Exam Cardiovascular Exam: +S1, +S2 - Neurological Exam Neurological Exam: Alert, Awake - Psychiatric Exam Psychiatric exam: Normal Affect, Normal Mood - Skin Skin Exam: Dry, Intact, Normal Color Assessment and Plan - Assessment and Plan (Free Text) Plan: A/P 87 yr old with pmh sig fo rchf, gi bleed, anemia, CRF, Afib, Copd, CABG/ AICD, hx MRSA bacteremai and e Coli UTI who was transferred from [facility] for lethargy, ams, sob and cp now undergoing workup for sepsis / pneumonia with ID consult on IV Daptomycin and Merrem with ID workup in progress including panculture that have all grown MRSA Sw note , cardio notes rev'd ID note regarding strong recommendation for ANDRE in setting of PPM and recurrent bacteremia noted spoke to artist blacksmith re : ANDRE - per DR Woodward treat medically for endocarditis with 4 to 6 wks antibiotics w/o ANDRE due to risk/comorbidities. Spoke with ID - persistent recurrent bacteremia pt needs to continue on IV dapto or have ppm removed. Son agreed to ppm removal on last Sunday, pmd and consultatants made aware. spoke to Dr malone who states he is actively arranging/ coordinating plans for transfer/ OR time at [facility] will add iron for Iron def anemia will followup Pt discussed in IDT rounds BPCI/TIC - BPCIA/TIC Educated pt/family on BPCIA/CIR/Med to Bed Programs: Yes Flyers given, including CMS Beneficiary letter: Yes Pt/family verbalized understanding & agreed to program: Yes
[2018-03-05] MEDS: Ferrous Sulfate 300 mg/5 mL Liq UD PO SCH ×2 (10:36→18:09)
[2018-03-05] MEDS: Nystatin 100,000 Units/ml Oral Susp 5 ml UD PO SCH ×4 (10:39→21:29)
[2018-03-05] MEDS: diltiaZEM 180 mg/24 Hours CD Cap PO SCH (10:39)
--- NOTE | 2018-03-05 12:00 | PN ---
PULMONARY PROGRESS NOTE DATE: 03/05/2018 SUBJECTIVE: The patient is sitting up in bed. No acute distress. No overnight events reported. No hemoptysis, hematosis, hematuria, diarrhea and leg swelling reported. OBJECTIVE GENERAL: No acute distress. VITAL SIGNS: Blood pressure 167/74, pulse 75, temperature 97.8 and pulse ox 94%. HEENT: Moist mucus membranes. NECK: Supple. No JVD. RESPIRATORY: Decrease breath sounds on the bases. Prolonged respiratory phase. CARDIOVASCULAR: S1 and S2, audible. ABDOMEN: Soft and nontender. No distention. No organomegaly. EXTREMITIES: No bilateral lower extremity edema. NEUROLOGIC: Awake, alert, and verbal. Follows commands. MEDICATIONS: Reviewed. Tylenol 650 mg every 4 hours p.r.n. for mild pain, Tylenol 650 mg every 4 hours p.r.n. for fever greater than 100.5, DuoNeb 3 mL inhalation every 2 hours p.r.n., Brovana 15 mcg inhalation every 12 hours, aspirin 81 mg daily, Pulmicort 0.25 mg inhalation every 12 hours, Cardizem 180 mg p.o. daily, ferrous sulphate 300 mg twice a day, Lasix 20 mg daily, hydralazine 10 mg daily p.r.n., isosorbide mononitrate 30 mg p.o. daily, Synthroid 25 mcg daily, Namenda 10 mg p.o. daily, Singulair 10 mg p.o. daily, nystatin oral suspension 5 mL p.o. 4 times a day, Protonix 20 mg daily, sodium chloride 1000 mL at 40 mL per hour and Flomax 0.8 mg daily. LABORATORY DATA: Reviewed. WBC 6.8, RBC 3.07, hemoglobin 7.9, hematocrit 26.6, and platelets 116. Sodium 148, potassium 4.1, chloride 118, carbon dioxide 25, anion gap 9, BUN 36, creatinine 2.5, GFR 30, random glucose 92, calcium 9.8,total bilirubin 0.8, AST 14, ALT 21, alkaline phosphatase 119, total protein 6.9, albumin 2.6, globulin 4.3 and albumin-globulin ratio 0.6. IMPRESSION AND PLAN: Bacteremia, endocarditis, pleural effusion, chronic lung disease, cardiac diastolic dysfunction and systolic dysfunction, paroxysmal atrial fibrillation, cardiomyopathy, pulmonary hypertension, oropharyngeal dysphagia, hyperlipidemia, coronary artery disease, bladder outlet obstruction with benign prostatic hypertrophy requiring Mann catheter and anemia. Appreciated nurse practitioner, Raysa, note. Patient has started iron for anemia. The patient is currently awaiting to be transferred to tertiary care center for discontinuation of automatic implantable cardioverter-defibrillator pacemaker. Continue antibiotic therapy per Infectious Disease, head of bed elevated at 45 degrees, continue to encourage bilevel positive airway pressure use, gastric prophylaxis, deep venous thrombosis prophylaxis and aspiration precaution and Cardiology followup. The patient needs close monitoring with meals. We recommend getting the patient out of bed to chair and need to monitor electrolytes closely. This patient was seen and examined with Dr. Vail. Discussed assessment and plan as described above. Thank you for this consult and we will follow with you. Cornel Collins APN Radha Vail MD ISAURA
--- NOTE | 2018-03-05 14:42 | CP.PCM.PN ---
<Marko Galdamez - Last Filed: 03/05/18 14:39> Subjective - Date & Time of Evaluation Date of Evaluation: 03/05/18 Time of Evaluation: 10:00 - Subjective Subjective: ID Progress note Patient doing well with improvement in abdominal pain today. Patient no longer constipated. Denies chest pain, shortness of breath, nausea, vomiting, diarrhea, fever, chills. Objective - Vital Signs/Intake and Output Vital Signs (last 24 hours): Temp Pulse Resp BP Pulse Ox 97.7 F 78 18 143/68 94 L 03/05/18 12:00 03/05/18 12:00 03/05/18 12:00 03/05/18 12:00 03/04/18 06:00 Intake and Output: 03/05/18 03/05/18 06:59 18:59 Intake Total 1020 Output Total 2 Balance 1018 - Medications Medications: Current Medications Acetaminophen (Tylenol 325mg Tab) 650 mg PO Q4H PRN PRN Reason: Pain, Mild (1-3) Last Admin: 03/04/18 11:25 Dose: 650 mg Acetaminophen (Tylenol 325mg Tab) 650 mg PO Q4H PRN PRN Reason: Fever >100.5 F Last Admin: 02/25/18 06:11 Dose: 650 mg Albuterol/Ipratropium (Duoneb 3 Mg/0.5 Mg (3 Ml) Ud) 3 ml IH Q2 PRN PRN Reason: Shortness of Breath Last Admin: 03/05/18 02:19 Dose: 3 ml Arformoterol Tartrate (Brovana) 15 mcg IH [id number] [facility] Last Admin: 03/05/18 07:12 Dose: 15 mcg Aspirin (Ecotrin) 81 mg PO DAILY [facility] Last Admin: 03/05/18 10:39 Dose: 81 mg Budesonide (Pulmicort Respules) 0.25 mg IH [id number] [facility] Last Admin: 03/05/18 07:12 Dose: 0.25 mg Diltiazem HCl (Cardizem Cd) 180 mg PO DAILY [facility] Last Admin: 03/05/18 10:39 Dose: 180 mg Ferrous Sulfate (Feosol Liq) 300 mg PO BID [facility] Last Admin: 03/05/18 10:36 Dose: 300 mg Furosemide (Lasix) 20 mg IVP DAILY [facility] Hydralazine HCl (Apresoline) 10 mg PO DAILY PRN PRN Reason: Systolic Blood Pressure >170 Last Admin: 03/04/18 06:55 Dose: 10 mg Sodium Chloride (Sodium Chloride 0.9%) 1,000 mls @ 40 mls/hr IV .Q24H [facility] Last Admin: 03/05/18 10:40 Dose: Not Given Daptomycin 380 mg/ Sodium (Chloride) 100 mls @ 200 mls/hr IV QOTHERDAY [facility] Stop: 04/04/18 10:01 Last Admin: 03/05/18 14:31 Dose: 200 mls/hr Isosorbide Mononitrate (Imdur Er) 30 mg PO DAILY [facility] Last Admin: 03/05/18 10:39 Dose: 30 mg Levothyroxine Sodium (Synthroid) 25 mcg PO 0600 [facility] Last Admin: 03/05/18 05:51 Dose: 25 mcg Memantine (Namenda) 10 mg PO DAILY [facility] Last Admin: 03/05/18 10:39 Dose: 10 mg Montelukast Sodium (Singulair) 10 mg PO DAILY [facility] Last Admin: 03/05/18 10:39 Dose: 10 mg Nystatin (Nystatin Oral Susp) 5 ml PO QID [facility] Last Admin: 03/05/18 14:31 Dose: 5 ml Pantoprazole Sodium (Protonix Ec Tab) 20 mg PO 0600 [facility] Last Admin: 03/05/18 05:51 Dose: 20 mg Tamsulosin HCl (Flomax) 0.8 mg PO DAILY [facility] Last Admin: 03/05/18 10:37 Dose: 0.8 mg - Labs Labs: 03/05/18 06:00 03/05/18 06:00 PT 16.6 SECONDS (9.4-12.5) H 02/19/18 18:04 INR 1.45 02/19/18 18:04 APTT 25.0 Seconds (25.1-36.5) L 02/19/18 18:04 - Constitutional Appears: Non-toxic, No Acute Distress - Head Exam Head Exam: ATRAUMATIC, NORMAL INSPECTION, NORMOCEPHALIC - Respiratory Exam Respiratory Exam: Clear to Ausculation Bilateral, NORMAL BREATHING PATTERN. absent: Rales, Rhonchi, Wheezes - Cardiovascular Exam Cardiovascular Exam: RRR, +S1, +S2 - GI/Abdominal Exam GI & Abdominal Exam: Soft, Normal Bowel Sounds. absent: Tenderness - Extremities Exam Extremities Exam: Normal Inspection. absent: Pedal Edema - Neurological Exam Neurological Exam: Alert, Awake, Oriented x3 Neuro motor strength exam: Left Upper Extremity: 5, Right Upper Extremity: 5, Left Lower Extremity: 5, Right Lower Extremity: 5 - Psychiatric Exam Psychiatric exam: Normal Affect, Normal Mood - Skin Skin Exam: Dry, Normal Color, Warm Assessment and Plan - Assessment and Plan (Free Text) Plan: Severe sepsis from MRSA bacteremia likely secondary to pacemaker/lead infection and associated tricuspid valve endocardititis Hx of MRSA bacteremia from 12/30/17 Iron deficiency anemia Hx of COPD Hx of dyslipidemia Hx og CABG with ischemic cardiomyopathy Hx of pacemaker placement Hx of HTN Hx of pulm HTN Plan Continue Daptomycin and Teflaro for MRSA bacteremia Blood cultures negative x 48 hours Will repeat CK levels, last within normal limits Pending transfer for pacemaker and lead removal with cardiology Continue to monitor Bhagaylinin, PGY-3 <Eyad Lubin - Last Filed: 03/05/18 16:22> Objective - Vital Signs/Intake and Output Vital Signs (last 24 hours): Temp Pulse Resp BP Pulse Ox 97.7 F 88 18 143/68 94 L 03/05/18 12:00 03/05/18 14:00 03/05/18 12:00 03/05/18 12:00 03/04/18 06:00 Intake and Output: 03/05/18 03/05/18 06:59 18:59 Intake Total 1020 Output Total 2 Balance 1018 - Medications Medications: Current Medications Acetaminophen (Tylenol 325mg Tab) 650 mg PO Q4H PRN PRN Reason: Pain, Mild (1-3) Last Admin: 03/04/18 11:25 Dose: 650 mg Acetaminophen (Tylenol 325mg Tab) 650 mg PO Q4H PRN PRN Reason: Fever >100.5 F Last Admin: 02/25/18 06:11 Dose: 650 mg Albuterol/Ipratropium (Duoneb 3 Mg/0.5 Mg (3 Ml) Ud) 3 ml IH Q2 PRN PRN Reason: Shortness of Breath Last Admin: 03/05/18 02:19 Dose: 3 ml Arformoterol Tartrate (Brovana) 15 mcg IH [id number] Last Admin: 03/05/18 07:12 Dose: 15 mcg Aspirin (Ecotrin) 81 mg PO DAILY [facility] Last Admin: 03/05/18 10:39 Dose: 81 mg Budesonide (Pulmicort Respules) 0.25 mg IH [id number] [facility] Last Admin: 03/05/18 07:12 Dose: 0.25 mg Diltiazem HCl (Cardizem Cd) 180 mg PO DAILY [facility] Last Admin: 03/05/18 10:39 Dose: 180 mg Ferrous Sulfate (Feosol Liq) 300 mg PO BID [facility] Last Admin: 03/05/18 10:36 Dose: 300 mg Furosemide (Lasix) 20 mg IVP DAILY [facility] Hydralazine HCl (Apresoline) 10 mg PO DAILY PRN PRN Reason: Systolic Blood Pressure >170 Last Admin: 03/04/18 06:55 Dose: 10 mg Sodium Chloride (Sodium Chloride 0.9%) 1,000 mls @ 40 mls/hr IV .Q24H [facility] Last Admin: 03/05/18 10:40 Dose: Not Given Daptomycin 380 mg/ Sodium (Chloride) 100 mls @ 200 mls/hr IV QOTHERDAY [facility] Stop: 04/04/18 10:01 Last Admin: 03/05/18 14:31 Dose: 200 mls/hr Isosorbide Mononitrate (Imdur Er) 30 mg PO DAILY [facility] Last Admin: 03/05/18 10:39 Dose: 30 mg Levothyroxine Sodium (Synthroid) 25 mcg PO 0600 [facility] Last Admin: 03/05/18 05:51 Dose: 25 mcg Memantine (Namenda) 10 mg PO DAILY [facility] Last Admin: 03/05/18 10:39 Dose: 10 mg Montelukast Sodium (Singulair) 10 mg PO DAILY [facility] Last Admin: 03/05/18 10:39 Dose: 10 mg Nystatin (Nystatin Oral Susp) 5 ml PO QID [facility] Last Admin: 03/05/18 14:31 Dose: 5 ml Pantoprazole Sodium (Protonix Ec Tab) 20 mg PO 0600 [facility] Last Admin: 03/05/18 05:51 Dose: 20 mg Tamsulosin HCl (Flomax) 0.8 mg PO DAILY [facility] Last Admin: 03/05/18 10:37 Dose: 0.8 mg - Labs Labs: 03/05/18 06:00 03/05/18 06:00 PT 16.6 SECONDS (9.4-12.5) H 02/19/18 18:04 INR 1.45 02/19/18 18:04 APTT 25.0 Seconds (25.1-36.5) L 02/19/18 18:04 Assessment and Plan - Assessment and Plan (Free Text) Plan: Infectious diseases Attending Physician Attestation Patient seen and examined, discussed with medical device assembler. I have reviewed the patient's history of present illness, past medical, social, personal and family histories, pertinent physical exam findings, course so far in this hospital admission, pertinent laboratory and imaging results. I agree with the above findings, assessment and plan. In addition, will continue Teflaro and Daptomycin for persistent MRSA bacteremia from pacemaker and leads infection with tricuspid valve endocarditis. Follow up plan for pacemaker removal.
--- NOTE | 2018-03-05 15:07 | PN ---
DATE: 03/05/2018 REASON FOR CONSULTATION AND FOLLOWUP: Cardiac evaluation, tricuspid valve endocarditis, history of CABG, history of cardiomyopathy, severe decreased LV function, and history of CABG. In the past he was request of high risk, later on echo shows tricuspid valve endocarditis and AICD lead is going in, so the patient has being scheduled for removal of laser extraction of the lead at [facility], awaiting for the bed to be transferred there. It did him continue antibiotics. It seems the patient has already proven endocarditis in the tricuspid valve in the vicinity of the AICD lead, no further need of this point. If deemed to be necessary, it will be done at [facility] before removal of laser. For now, continue antibiotic and the patient is being scheduled for removal of AICD with the laser at [facility] awaiting for the bed. We will follow with you. Overall, the patient condition is critical. Long-term prognosis is guarded. History of renal insufficiency as well, history of severely decreased LV ejection fraction 15% to 20%. Last echo dated 02/25/2018, revealed ejection fraction 15% to 20%, [id number] mitral regurgitation, moderate tricuspid regurgitation, trace AR, trace PI, tricuspid valve consistent with a vegetation of tricuspid valve endocarditis RV systolic pressure 47. Thank you Dr. Rivas for providing us the opportunity in taking care of patient, Yogesh Ruth. Radha Woodward MD
--- NOTE | 2018-03-05 19:04 | CON ---
DATE OF CONSULTATION: 03/04/2018 REASON FOR CONSULTATION: " ." HISTORY OF PRESENT ILLNESS: On 03/03/2018 at about 9:00 p.m. Sunday night, I received a phone call from the church secretary on the floor regarding the consult for the patient. At that time, I requested a nurse to call me. I am still awaiting that phone call. The patient is previously known to me. He has multiple medical issues. At the time that I initially saw the patient, I informed the senior living he had an indwelling Mann catheter and gross hematuria, most of that was related to him pulling on his catheter. We were planning to schedule a cystoscopy though for further evaluation because it was sometimes persistent bleeding, but in the interm the patient had an MRI by various criteria at that time and then was placed on blood thinner. So, he was medically unstable for any further urologic evaluation, so we had left him with a Mann catheter. Urology is consulting the patient today. The nurse who is currently on the floor is unsure what the consult is for. See below. I am able to investigate something through the chart. The patient is currently actually fairly agitated. See below that is part of his baseline mental status. I believe he is fairly agitated and actually trying to climb out of the bed. As per chart, we will see the patient for the treatment below and physical exam for further evaluation. PAST MEDICAL/SURGICAL HISTORY: Listed on the chart, nothing other from urology standpoint. PHYSICAL EXAMINATION: Again, it is mentioned that he initially was climbing out of the bed the rail thereafter. He is currently not in restraints. After talking to the patient, he is willing to stay for a few minutes. He has a Mann catheter, but it appears to be long term in. It is draining urine that is mixed kelsi in the bag. There is currently no blood. DIAGNOSTIC DATA: We actually reviewed the two separate CAT scans. The Mann catheter appears not to be in perfect location, although the bladder does not seem to be grossly distended. It looks the Mann may not be all the way into the hub, down into the bladder perfectly. The bladder itself did not seem to be grossly distended. Remainder of the CT scans otherwise are unremarkable. Laboratory values are noted as well. BUN and creatinine noted. DIAGNOSES: 1. Gross hematuria. 2. Mann catheter position. PLAN: There is a note in the computer stating the radiologist reading on the CAT scan that reports that the catheter is not in and that he spoke to the nurse on the floor. It is difficult to assess at this moment whether anything was done in that regard. From a urology standpoint, at this point the patient has a catheter that he is not pulling on and is draining. My recommendation is going to be to remove the catheter and reinsert a new catheter. However, right now, the patient is in somewhat of an agitated state and this would be an inappropriate time. My first plan will be to remove the Mann catheter and see if the patient may be able to void better now, and if not, we will discuss the ways about putting in a new Mann catheter. So, the urology plan is as follows: 1. To just observe the patient for the remainder of the evening. 2. A trial of void. 3. To discuss further options on how we can reinsert a Mann catheter via the urethra. I do want to mention that in speaking to the nurse, she is under the impression that he is being transferred to for further cardiology evaluation and treatment. So, we can discuss further urologic care once we know more information regarding his medical care. Whether we remove the catheter now or whether we wait, perhaps he will have the catheter reinserted there. We will also discuss retention possibility once we can find more information. Lul Langford MD
[2018-03-06] MEDS: Albuterol-Ipratrop 3 mg / 0.5 (3 ml) UD IH PRN ×2 (02:48→05:53)
[2018-03-06 05:17] LABS: HEMOGLOBIN 8.1 g/dL (14.0-18.0); MEAN CELL VOLUME 86.9 fl (80.0-105.0); MEAN CORPUSCULAR HGB CONC 29.9 g/dl (31.0-37.0); MEAN PLATELET VOLUME 10.6 fl (7.0-11.0); RBC 3.12 10^6/uL (3.5-6.1); RED CELL DISTRIBUTION WIDTH 19.5 % (11.5-14.5); WHITE BLOOD COUNT 6.4 10^3/uL (4.5-11.0)
[2018-03-06 05:37] LABS: TROPONIN I 0.08 ng/mL
[2018-03-06] MEDS: Levothyroxine 25 MCG TAB PO SCH (05:46)
[2018-03-06] MEDS: Pantoprazole 20 mg EC Tab PO SCH (05:46)
[2018-03-06 06:27] LABS: ALB/GLOB RATIO 0.6 (1.1-1.8); ALBUMIN 2.8 g/dL (3.0-4.8)
--- NOTE | 2018-03-06 07:01 | CP.PCM.PN ---
Objective - Vital Signs/Intake and Output Vital Signs (last 24 hours): Temp Pulse Resp BP Pulse Ox 97.8 F 80 20 154/71 H 91 L 03/06/18 06:00 03/06/18 06:00 03/06/18 06:00 03/06/18 06:00 03/06/18 06:00 Intake and Output: 03/06/18 03/06/18 06:59 18:59 Intake Total 1900 Output Total 0 Balance 1900 - Medications Medications: Current Medications Acetaminophen (Tylenol 325mg Tab) 650 mg PO Q4H PRN PRN Reason: Pain, Mild (1-3) Last Admin: 03/04/18 11:25 Dose: 650 mg Acetaminophen (Tylenol 325mg Tab) 650 mg PO Q4H PRN PRN Reason: Fever >100.5 F Last Admin: 02/25/18 06:11 Dose: 650 mg Albuterol/Ipratropium (Duoneb 3 Mg/0.5 Mg (3 Ml) Ud) 3 ml IH Q2 PRN PRN Reason: Shortness of Breath Last Admin: 03/06/18 05:53 Dose: 3 ml Arformoterol Tartrate (Brovana) 15 mcg IH [id number] [facility] Last Admin: 03/05/18 20:46 Dose: 15 mcg Aspirin (Ecotrin) 81 mg PO DAILY [facility] Last Admin: 03/05/18 10:39 Dose: 81 mg Budesonide (Pulmicort Respules) 0.25 mg IH [id number] [facility] Last Admin: 03/05/18 20:47 Dose: 0.25 mg Diltiazem HCl (Cardizem Cd) 180 mg PO DAILY [facility] Last Admin: 03/05/18 10:39 Dose: 180 mg Ferrous Sulfate (Feosol Liq) 300 mg PO BID [facility] Last Admin: 03/05/18 18:09 Dose: 300 mg Furosemide (Lasix) 20 mg IVP DAILY [facility] Hydralazine HCl (Apresoline) 10 mg PO DAILY PRN PRN Reason: Systolic Blood Pressure >170 Last Admin: 03/04/18 06:55 Dose: 10 mg Sodium Chloride (Sodium Chloride 0.9%) 1,000 mls @ 40 mls/hr IV .Q24H [facility] Last Admin: 03/05/18 10:40 Dose: Not Given Daptomycin 380 mg/ Sodium (Chloride) 100 mls @ 200 mls/hr IV QOTHERDAY [facility] Stop: 04/04/18 10:01 Last Admin: 03/05/18 14:31 Dose: 200 mls/hr Isosorbide Mononitrate (Imdur Er) 30 mg PO DAILY [facility] Last Admin: 03/05/18 10:39 Dose: 30 mg Levothyroxine Sodium (Synthroid) 25 mcg PO 0600 [facility] Last Admin: 03/06/18 05:46 Dose: 25 mcg Memantine (Namenda) 10 mg PO DAILY [facility] Last Admin: 03/05/18 10:39 Dose: 10 mg Montelukast Sodium (Singulair) 10 mg PO DAILY [facility] Last Admin: 03/05/18 10:39 Dose: 10 mg Nystatin (Nystatin Oral Susp) 5 ml PO QID [facility] Last Admin: 03/05/18 21:29 Dose: 5 ml Pantoprazole Sodium (Protonix Ec Tab) 20 mg PO 0600 [facility] Last Admin: 03/06/18 05:46 Dose: 20 mg Tamsulosin HCl (Flomax) 0.8 mg PO DAILY [facility] Last Admin: 03/05/18 10:37 Dose: 0.8 mg - Labs Labs: 03/06/18 04:50 03/06/18 04:50 PT 16.6 SECONDS (9.4-12.5) H 02/19/18 18:04 INR 1.45 02/19/18 18:04 APTT 25.0 Seconds (25.1-36.5) L 02/19/18 18:04
--- NOTE | 2018-03-06 07:01 | CP.PCM.PN ---
Subjective - Date & Time of Evaluation Date of Evaluation: 03/06/18 Time of Evaluation: 06:35 - Subjective Subjective: No distress, awake, Lying in bed, alert , shortness of breath on exertion, on contact isolation Reason for consultation and follow up:Cardiac evaluation of CHF and coronary artery disease, recurrent bacteremia, infected PPM/AICD Seen and examined by me and Objective - Vital Signs/Intake and Output Vital Signs (last 24 hours): Temp Pulse Resp BP Pulse Ox 97.8 F 80 20 154/71 H 91 L 03/06/18 06:00 03/06/18 06:00 03/06/18 06:00 03/06/18 06:00 03/06/18 06:00 Intake and Output: 03/06/18 03/06/18 06:59 18:59 Intake Total 1900 Output Total 0 Balance 1900 - Medications Medications: Current Medications Acetaminophen (Tylenol 325mg Tab) 650 mg PO Q4H PRN PRN Reason: Pain, Mild (1-3) Last Admin: 03/04/18 11:25 Dose: 650 mg Acetaminophen (Tylenol 325mg Tab) 650 mg PO Q4H PRN PRN Reason: Fever >100.5 F Last Admin: 02/25/18 06:11 Dose: 650 mg Albuterol/Ipratropium (Duoneb 3 Mg/0.5 Mg (3 Ml) Ud) 3 ml IH Q2 PRN PRN Reason: Shortness of Breath Last Admin: 03/06/18 05:53 Dose: 3 ml Arformoterol Tartrate (Brovana) 15 mcg IH [id number] [facility] Last Admin: 03/05/18 20:46 Dose: 15 mcg Aspirin (Ecotrin) 81 mg PO DAILY [facility] Last Admin: 03/05/18 10:39 Dose: 81 mg Budesonide (Pulmicort Respules) 0.25 mg IH [id number] [facility] Last Admin: 03/05/18 20:47 Dose: 0.25 mg Diltiazem HCl (Cardizem Cd) 180 mg PO DAILY [facility] Last Admin: 03/05/18 10:39 Dose: 180 mg Ferrous Sulfate (Feosol Liq) 300 mg PO BID [facility] Last Admin: 03/05/18 18:09 Dose: 300 mg Furosemide (Lasix) 20 mg IVP DAILY [facility] Hydralazine HCl (Apresoline) 10 mg PO DAILY PRN PRN Reason: Systolic Blood Pressure >170 Last Admin: 03/04/18 06:55 Dose: 10 mg Sodium Chloride (Sodium Chloride 0.9%) 1,000 mls @ 40 mls/hr IV .Q24H [facility] Last Admin: 03/05/18 10:40 Dose: Not Given Daptomycin 380 mg/ Sodium (Chloride) 100 mls @ 200 mls/hr IV QOTHERDAY [facility] Stop: 04/04/18 10:01 Last Admin: 03/05/18 14:31 Dose: 200 mls/hr Isosorbide Mononitrate (Imdur Er) 30 mg PO DAILY [facility] Last Admin: 03/05/18 10:39 Dose: 30 mg Levothyroxine Sodium (Synthroid) 25 mcg PO 0600 [facility] Last Admin: 03/06/18 05:46 Dose: 25 mcg Memantine (Namenda) 10 mg PO DAILY [facility] Last Admin: 03/05/18 10:39 Dose: 10 mg Montelukast Sodium (Singulair) 10 mg PO DAILY [facility] Last Admin: 03/05/18 10:39 Dose: 10 mg Nystatin (Nystatin Oral Susp) 5 ml PO QID [facility] Last Admin: 03/05/18 21:29 Dose: 5 ml Pantoprazole Sodium (Protonix Ec Tab) 20 mg PO 0600 [facility] Last Admin: 03/06/18 05:46 Dose: 20 mg Tamsulosin HCl (Flomax) 0.8 mg PO DAILY [facility] Last Admin: 03/05/18 10:37 Dose: 0.8 mg - Labs Labs: 03/06/18 04:50 03/06/18 04:50 PT 16.6 SECONDS (9.4-12.5) H 02/19/18 18:04 INR 1.45 02/19/18 18:04 APTT 25.0 Seconds (25.1-36.5) L 02/19/18 18:04 - Constitutional Appears: Non-toxic, No Acute Distress - Head Exam Head Exam: NORMAL INSPECTION, NORMOCEPHALIC - Eye Exam Eye Exam: Normal appearance - ENT Exam ENT Exam: Mucous Membranes Moist - Respiratory Exam Respiratory Exam: Decreased Breath Sounds, NORMAL BREATHING PATTERN - Cardiovascular Exam Cardiovascular Exam: +S1, +S2 - GI/Abdominal Exam GI & Abdominal Exam: Soft, Normal Bowel Sounds - Neurological Exam Neurological Exam: Alert, Awake - Psychiatric Exam Psychiatric exam: Normal Affect, Normal Mood - Skin Skin Exam: Normal Color, Warm Assessment and Plan - Assessment and Plan (Free Text) Assessment: An 87 year old male who came from [facility] due to altered mental status, chest pain and shortness of breath. History of GI bleed, anemia, chronic renal failure, coronary artery disease post CABG, Afib and COPD, systolic dysfunction CHF. Elevated troponin 0.29/0.28. Echo done 01/22/18 LVEF 15-25%, Trace AR/MR, moderate TR RVSP 75 mmHg,moderate to severe pulmonary hypertension. Will treat medically for now for elevated troponin. No cardiac catheterization for now due to renal insufficiency. Denies chest pain now. ANDRE was not done from previous admission due to severe dementia and agitation due to risk of perforation. Consult was called again to evaluate and possible ANDRE to rule out endocarditis due to recurrent bacteremia. 02/25/18 Repeat echo done, showed echogenic mobile structure attached to tricuspid valve consistent with vegetation tricuspid valve endocarditis. Dr. Pena consulted for removal of AICD. For laser lead extraction and transfer to [facility], son agreed for procedure.Seen by Urology.Awaiting transfer to [facility]. Plan: No distress, on isolation precaution Denies chest pain Heart rate stable Blood pressure stable Awaiting transfer to [facility] Dr. Pena and partner will do laser lead extraction of PPM/AICD Bacteremia, ID on consult Continue antibiotics as per ID On ASA 81 mg daily, Cardizem 180 mg daily, Lasix 40 mg daily, Imdur ER 30 mg daily,Synthroid 25 mcg daily,Flomax 0.8 mg daily Continue current medications Continue current treatment Nutritional support Will follow up Plan and treatment discussed with Dr. Woodward
[2018-03-06] MEDS: Sodium Chloride 0.9% 1,000 ML IV SCH (07:57)
[2018-03-06] MEDS: Arformoterol 15 mcg/2 ml Inh Sol IH SCH ×2 (08:04→20:08)
[2018-03-06] MEDS: Budesonide 0.25 mg/2 ml Inhal Susp UD IH SCH ×2 (08:05→20:08)
--- NOTE | 2018-03-06 09:06 | PN ---
DATE: 03/05/2018 SUBJECTIVE: The patient is an 87-year-old male. The patient was seen and examined at the bedside, looking comfortable. No shortness of breath. No nausea, vomiting or diarrhea. No fever, no chills. No headache, no dizziness. No palpitation. The patient is a poor historian. PHYSICAL EXAMINATION VITAL SIGNS: Temperature 97.7, pulse 78, respiratory rate 18, blood pressure 143/68, pulse oximetry 94. HEENT: Head: Normocephalic and atraumatic. Eyes: PERRLA. Extraocular muscles intact. Conjunctivae clear. Nose: Patent. NECK: Supple. No carotid bruit. No JVD or thyromegaly. CHEST: Bilaterally symmetrical. HEART: S1 and S2 positive. LUNGS: Clear to auscultation. ABDOMEN: Soft. Bowel sounds present. No organomegaly. EXTREMITIES: No edema. No cyanosis. NEUROLOGIC: The patient is awake and alert. Follows simple orders. MEDICATIONS: Tylenol, DuoNeb, Brovana, Ecotrin, Pulmicort, Cardizem, Lasix, NS, daptomycin, isosorbide, levothyroxine, Synthroid, nystatin powder and Protonix. LABORATORY DATA: White blood cells 6.8, hemoglobin 7.9, hematocrit 26.6, platelets noted . Sodium 148, potassium 4.1, BUN 36, creatinine 2.5, glucose 92. ASSESSMENT AND PLAN: Mr. Faraz Zuñiga is an 87-year-old male with anemia, renal insufficiency, hyperchloremia, has severe sepsis of methicillin-resistant Staphylococcus aureus bacteremia plus infected pacemaker and leads infected and associated bicuspid aortic valve endocarditis, iron deficiency, chronic obstructive pulmonary disease, dyslipidemia, coronary artery bypass graft, ishemic cardiomyopathy, pacemaker placement, hypertension, pulmonary hypertension. Plan is to continue daptomycin and Teflaro for MRSA. Blood culture is negative upto 48 hours. Repeat CPK level. Pending transfer for pacemaker and lead removal from [facility] by Dr. Crystal. Discussion done with nursing staff, the patient by himself and Cornel Prudence the patient for pulmonary and obstructive sleep apnea . We will follow up. Irasema Rivas MD MTDD
[2018-03-06] MEDS ORDERED: Bisacodyl 5mg EC Tab PO ONE (09:46)
--- NOTE | 2018-03-06 10:53 | CARD ---
APPROVED REPORT Date of service: 03/06/2018 EKG Measurement Heart [id number] <Conclusion> Normal sinus rhythm Possible Left atrial enlargement Right bundle branch block Left anterior fascicular block Bifascicular block Left ventricular hypertrophy with repolarization abnormality STTW changes c/w ischemia
--- NOTE | 2018-03-06 11:29 | US ---
Date of service: 03/05/2018 PROCEDURE: Ultrasound of the Bladder HISTORY: retention// please do at 5 pm today COMPARISON: None available. TECHNIQUE: Sonographic evaluation of the bladder was performed. FINDINGS: There is thickening of the bladder wall suspicious for cystitis or bladder outlet obstruction. No free fluid in pelvis. The prostate volume is 33 mL. Prevoid Volume: Not measured cc. Post void residual: 98 cc. The report concurs with the preliminary [facility] report IMPRESSION: Thickening of the bladder wall suspicious for cystitis or bladder outlet obstruction. 98 cc postvoid residual
[2018-03-06] MEDS: Ferrous Sulfate 300 mg/5 mL Liq UD PO SCH ×2 (11:45→18:37)
[2018-03-06] MEDS: Nystatin 100,000 Units/ml Oral Susp 5 ml UD PO SCH ×4 (11:45→22:59)
[2018-03-06] MEDS: diltiaZEM 180 mg/24 Hours CD Cap PO SCH (11:46)
--- NOTE | 2018-03-06 12:08 | PN ---
DATE: 03/06/2018 PULMONARY PROGRESS NOTE REFERRING PHYSICIAN: Irasema Rivas MD SUBJECTIVE: The patient is sitting up in bed. No acute distress. No overnight events reported. No hemoptysis, hematosis, hematuria, diarrhea or leg swelling reported. OBJECTIVE: GENERAL: No acute distress. VITAL SIGNS: Blood pressure 154/71 pulse 76, temperature 97.8 and oxygen saturation 91%. HEENT: Moist mucous membranes. NECK: Supple. No JVD. RESPIRATORY: Decreased breath sounds at bases. CARDIOVASCULAR: S1 and S2 audible. ABDOMEN: Soft and nontender. No distention. No organomegaly. EXTREMITIES: No bilateral lower extremity edema. NEUROLOGIC: Awake, alert, verbal. Follows simple commands. MEDICATIONS: Reviewed. Tylenol 650 mg every 4 hours p.r.n. for mild pain, Tylenol 650 mg every 4 hours p.r.n. for fever greater than 100.5, DuoNeb 3 mL inhalation every 2 hours p.r.n., Brovana 15 mcg inhalation every 12 hours, aspirin 81 mg p.o. daily, Pulmicort 0.25 mg every 12 hours, daptomycin mg every other day, Cardizem 180 mg p.o. daily, ferrous sulfate 300 mg twice a day, Lasix 20 mg IV push daily, hydralazine 10 mg p.o. daily as needed., isosorbide mononitrate 30 mg p.o. daily, Synthroid 25 mcg daily, Namenda 10 mg daily, Singulair 10 mg daily, nystatin oral suspension 5 mL 4 times a day, Protonix 20 mg daily, sodium chloride 1000 mL at 40 mL per hour and Flomax 0.8 mg p.o. daily. LABORATORY DATA: Reviewed. WBC 6.4, RBC 3.12, hemoglobin 8.1, hematocrit 27.1 and platelets 165. Sodium 150, potassium 4.3, chloride 118, carbon dioxide 24, anion gap 12, BUN 34, creatinine 2.4, GFR 31, random glucose 99. Calcium 10, magnesium 2.1. Total bilirubin 0.8, AST 22, ALT 15, alkaline phosphatase 118, troponin 0.08, total protein 10.3, albumin 2.8, globulin 4.5 and albumin-globulin ratio of 0.6. DIAGNOSTIC DATA: Electrocardiogram: Normal sinus rhythm, possible left atrial enlargement, right bundle-branch block, left anterior bifascicular block, left ventricular hypertrophy with repolarization abnormality, ST and T-wave changes consistent with ischemia. IMPRESSION AND PLAN: Bacteremia, endocarditis, pleural effusion, chronic lung disease, paroxysmal atrial fibrillation, currently in sinus rhythm, cardiomyopathy, pulmonary hypertension, cardiac diastolic dysfunction and systolic dysfunction, oropharyngeal dysphagia, hyperlipidemia, coronary artery disease, bladder outlet obstruction with benign prostatic hypertrophy requiring Mann catheter, anemia. The patient is presently awaiting to be transferred to tertiary care center for discontinuation of automatic implantable cardioverter-defibrillator pacemaker. Continue antibiotic therapy per Infectious Disease, head of bed elevated at 45 degrees, continue to encourage BiPAP use, gastric prophylaxis, deep venous thrombosis prophylaxis and aspiration precaution, continue Cardiology followup. We will continue to monitor electrolytes closely. BUN and creatinine improving. The patient needs close monitoring with meals. We recommend getting the patient out of bed to chair. Aspiration precaution. Chest x-ray done today, report pending, we will follow up. This patient was seen and examined with Dr. Vail. Discussed assessment and plan as described above. Thank you for this consult and we will follow with you. Cornel Collins APN Radha Vail MD [facility]
--- NOTE | 2018-03-06 12:41 | CP.PCM.APN ---
Subjective - Date & Time of Evaluation Date of Evaluation: 03/06/18 Time of Evaluation: 09:00 - Subjective Subjective: pt seen in bed asks for medicine to help move bowels no other complaints Review of Systems - Constitutional Constitutional: Fatigue, Weakness Objective - Vital Signs/Intake and Output Vital Signs (last 24 hours): Temp Pulse Resp BP Pulse Ox 97.8 F 75 20 160/74 H 91 L 03/06/18 06:00 03/06/18 11:46 03/06/18 06:00 03/06/18 11:46 03/06/18 06:00 Intake and Output: 03/06/18 03/06/18 06:59 18:59 Intake Total 1900 Output Total 0 Balance 1900 - Medications Medications: Current Medications Acetaminophen (Tylenol 325mg Tab) 650 mg PO Q4H PRN PRN Reason: Pain, Mild (1-3) Last Admin: 03/04/18 11:25 Dose: 650 mg Acetaminophen (Tylenol 325mg Tab) 650 mg PO Q4H PRN PRN Reason: Fever >100.5 F Last Admin: 02/25/18 06:11 Dose: 650 mg Albuterol/Ipratropium (Duoneb 3 Mg/0.5 Mg (3 Ml) Ud) 3 ml IH Q2 PRN PRN Reason: Shortness of Breath Last Admin: 03/06/18 05:53 Dose: 3 ml Arformoterol Tartrate (Brovana) 15 mcg IH [id number] [facility] Last Admin: 03/06/18 08:04 Dose: 15 mcg Aspirin (Ecotrin) 81 mg PO DAILY [facility] Last Admin: 03/06/18 11:46 Dose: 81 mg Budesonide (Pulmicort Respules) 0.25 mg IH [id number] [facility] Last Admin: 03/06/18 08:05 Dose: 0.25 mg Diltiazem HCl (Cardizem Cd) 180 mg PO DAILY [facility] Last Admin: 03/06/18 11:46 Dose: 180 mg Ferrous Sulfate (Feosol Liq) 300 mg PO BID [facility] Last Admin: 03/06/18 11:45 Dose: 300 mg Furosemide (Lasix) 20 mg IVP DAILY [facility] Last Admin: 03/06/18 11:46 Dose: 20 mg Hydralazine HCl (Apresoline) 10 mg PO DAILY PRN PRN Reason: Systolic Blood Pressure >170 Last Admin: 03/04/18 06:55 Dose: 10 mg Sodium Chloride (Sodium Chloride 0.9%) 1,000 mls @ 40 mls/hr IV .Q24H [facility] Last Admin: 03/06/18 07:57 Dose: 40 mls/hr Daptomycin 380 mg/ Sodium (Chloride) 100 mls @ 200 mls/hr IV QOTHERDAY [facility] Stop: 04/04/18 10:01 Last Admin: 03/05/18 14:31 Dose: 200 mls/hr Isosorbide Mononitrate (Imdur Er) 30 mg PO DAILY [facility] Last Admin: 03/06/18 11:45 Dose: 30 mg Levothyroxine Sodium (Synthroid) 25 mcg PO 0600 [facility] Last Admin: 03/06/18 05:46 Dose: 25 mcg Memantine (Namenda) 10 mg PO DAILY [facility] Last Admin: 03/06/18 11:45 Dose: 10 mg Montelukast Sodium (Singulair) 10 mg PO DAILY [facility] Last Admin: 03/06/18 11:45 Dose: 10 mg Nystatin (Nystatin Oral Susp) 5 ml PO QID [facility] Last Admin: 03/06/18 11:45 Dose: 5 ml Pantoprazole Sodium (Protonix Ec Tab) 20 mg PO 0600 [facility] Last Admin: 03/06/18 05:46 Dose: 20 mg Tamsulosin HCl (Flomax) 0.8 mg PO DAILY [facility] Last Admin: 03/06/18 11:45 Dose: 0.8 mg - Labs Labs: 03/06/18 04:50 03/06/18 04:50 PT 16.6 SECONDS (9.4-12.5) H 02/19/18 18:04 INR 1.45 02/19/18 18:04 APTT 25.0 Seconds (25.1-36.5) L 02/19/18 18:04 - Constitutional Appears: No Acute Distress, Chronically Ill - Eye Exam Pupil Exam: NORMAL ACCOMODATION, PERRL - Neck Exam Neck Exam: Full ROM - Respiratory Exam Respiratory Exam: Decreased Breath Sounds, NORMAL BREATHING PATTERN - Cardiovascular Exam Cardiovascular Exam: +S1, +S2 - GI/Abdominal Exam GI & Abdominal Exam: Normal Bowel Sounds - Extremities Exam Extremities Exam: Normal Capillary Refill - Neurological Exam Neurological Exam: Alert, Awake - Skin Skin Exam: Dry, Intact Assessment and Plan - Assessment and Plan (Free Text) Plan: A/P 87 yr old with pmh sig fo rchf, gi bleed, anemia, CRF, Afib, Copd, CABG/ AICD, hx MRSA bacteremai and e Coli UTI who was transferred from [facility] at [facility] for lethargy, ams, sob and cp now undergoing workup for sepsis / pneumonia with ID consult on IV Daptomycin and Merrem with ID workup in progress including panculture that have all grown MRSA pt son Shola agreed to have pt transfer to [facility] for ppm laser lead removal, spoke to Dr malone who states he is actively arranging/ coordinating plans for transfer/ OR time at [facility] and plans are being made for transfer tentatively . informed pmd of plans for transfer will continue to follow
--- NOTE | 2018-03-06 13:13 | RAD ---
Date of service: 03/06/2018 HISTORY: sob COMPARISON: 02/25/2018 FINDINGS: LUNGS: There is a small patchy infiltrate in the right lower lobe. There is moderate vascular and interstitial congestion PLEURA: No significant pleural effusion identified, no pneumothorax apparent. CARDIOVASCULAR: Aortic calcification Moderate to severe cardiomegaly OSSEOUS STRUCTURES: Sternal wires VISUALIZED UPPER ABDOMEN: Normal. OTHER FINDINGS: Single lead pacemaker IMPRESSION: There is a small patchy infiltrate in the right lower lobe. There is moderate vascular and interstitial congestion
--- NOTE | 2018-03-06 14:06 | PN ---
DATE: 03/06/2018 REASON FOR CONSULTATION: Cardiac evaluation, tricuspid valve endocarditis, persistent bacteremia, possible infected AICD, for laser removal of AICD. The patient is very lethargic, did respond to verbal stimuli. This note is in addition to dictated by nurse practitioner. Recent echo shows the patient had tricuspid valve endocarditis dated 01/22/2018, ejection fraction 15 to 20%, trace AR, trace MR, moderate TR, systolic pressure 75. Awaiting for transfer for [facility], awaiting for the availability of bed for possible laser extraction of defibrillator, though it is a high risk procedure the patient's family understood the risk and benefit and agreed. Awaiting for bed availability and we will transfer him. In the interim, continue treatment. Thank you Dr. Rivas for providing us the opportunity in taking care of patient, Faraz Zuñiga. Radha Woodward MD
--- NOTE | 2018-03-06 15:03 | CP.PCM.PN ---
<Marko Galdamez - Last Filed: 03/06/18 14:59> Subjective - Date & Time of Evaluation Date of Evaluation: 03/06/18 Time of Evaluation: 09:45 - Subjective Subjective: ID progress note Patient states he has no complaints at this time. Denies chest pain, shortness of breath, nausea, vomiting, diarrhea, fever, chills. Objective - Vital Signs/Intake and Output Vital Signs (last 24 hours): Temp Pulse Resp BP Pulse Ox 98.0 F 79 16 176/81 H 91 L 03/06/18 12:00 03/06/18 12:00 03/06/18 12:00 03/06/18 12:00 03/06/18 06:00 Intake and Output: 03/06/18 03/06/18 06:59 18:59 Intake Total 1900 Output Total 0 Balance 1900 - Medications Medications: Current Medications Acetaminophen (Tylenol 325mg Tab) 650 mg PO Q4H PRN PRN Reason: Pain, Mild (1-3) Last Admin: 03/04/18 11:25 Dose: 650 mg Acetaminophen (Tylenol 325mg Tab) 650 mg PO Q4H PRN PRN Reason: Fever >100.5 F Last Admin: 02/25/18 06:11 Dose: 650 mg Albuterol/Ipratropium (Duoneb 3 Mg/0.5 Mg (3 Ml) Ud) 3 ml IH Q2 PRN PRN Reason: Shortness of Breath Last Admin: 03/06/18 05:53 Dose: 3 ml Arformoterol Tartrate (Brovana) 15 mcg IH [id number] [facility] Last Admin: 03/06/18 08:04 Dose: 15 mcg Aspirin (Ecotrin) 81 mg PO DAILY [facility] Last Admin: 03/06/18 11:46 Dose: 81 mg Budesonide (Pulmicort Respules) 0.25 mg IH [id number] [facility] Last Admin: 03/06/18 08:05 Dose: 0.25 mg Diltiazem HCl (Cardizem Cd) 180 mg PO DAILY [facility] Last Admin: 03/06/18 11:46 Dose: 180 mg Ferrous Sulfate (Feosol Liq) 300 mg PO BID [facility] Last Admin: 03/06/18 11:45 Dose: 300 mg Furosemide (Lasix) 20 mg IVP DAILY [facility] Last Admin: 03/06/18 11:46 Dose: 20 mg Hydralazine HCl (Apresoline) 10 mg PO DAILY PRN PRN Reason: Systolic Blood Pressure >170 Last Admin: 03/04/18 06:55 Dose: 10 mg Daptomycin 380 mg/ Sodium (Chloride) 100 mls @ 200 mls/hr IV QOTHERDAY [facility] Stop: 04/04/18 10:01 Last Admin: 03/05/18 14:31 Dose: 200 mls/hr Isosorbide Mononitrate (Imdur Er) 30 mg PO DAILY [facility] Last Admin: 03/06/18 11:45 Dose: 30 mg Levothyroxine Sodium (Synthroid) 25 mcg PO 0600 [facility] Last Admin: 03/06/18 05:46 Dose: 25 mcg Memantine (Namenda) 10 mg PO DAILY [facility] Last Admin: 03/06/18 11:45 Dose: 10 mg Montelukast Sodium (Singulair) 10 mg PO DAILY [facility] Last Admin: 03/06/18 11:45 Dose: 10 mg Nystatin (Nystatin Oral Susp) 5 ml PO QID [facility] Last Admin: 03/06/18 14:58 Dose: 5 ml Pantoprazole Sodium (Protonix Ec Tab) 20 mg PO 0600 [facility] Last Admin: 03/06/18 05:46 Dose: 20 mg Tamsulosin HCl (Flomax) 0.8 mg PO DAILY [facility] Last Admin: 03/06/18 11:45 Dose: 0.8 mg - Labs Labs: 03/06/18 04:50 03/06/18 04:50 PT 16.6 SECONDS (9.4-12.5) H 02/19/18 18:04 INR 1.45 02/19/18 18:04 APTT 25.0 Seconds (25.1-36.5) L 02/19/18 18:04 - Constitutional Appears: Non-toxic, No Acute Distress - Head Exam Head Exam: ATRAUMATIC, NORMAL INSPECTION, NORMOCEPHALIC - Respiratory Exam Respiratory Exam: Clear to Ausculation Bilateral, NORMAL BREATHING PATTERN. absent: Rales, Rhonchi, Wheezes - Cardiovascular Exam Cardiovascular Exam: RRR, +S1, +S2 - GI/Abdominal Exam GI & Abdominal Exam: Soft, Normal Bowel Sounds. absent: Tenderness - Extremities Exam Extremities Exam: Normal Inspection. absent: Pedal Edema - Neurological Exam Neurological Exam: Alert, Awake, Oriented x3 - Psychiatric Exam Psychiatric exam: Normal Affect, Normal Mood - Skin Skin Exam: Dry, Intact, Warm Assessment and Plan - Assessment and Plan (Free Text) Plan: Severe sepsis from MRSA bacteremia likely secondary to pacemaker/lead infection and associated tricuspid valve endocardititis Hx of MRSA bacteremia from 12/30/17 Iron deficiency anemia Hx of COPD Hx of dyslipidemia Hx og CABG with ischemic cardiomyopathy Hx of pacemaker placement Hx of HTN Hx of pulm HTN Plan Continue Daptomycin and Teflaro for MRSA bacteremia Blood cultures negative x 72 hours CK levels within normal limits Bladder US pending Patient requires removal of pacemaker and leads via cardiology Continue to monitor Bhcarlos, PGY-3 <Eyad Lubin - Last Filed: 03/06/18 16:41> Objective - Vital Signs/Intake and Output Vital Signs (last 24 hours): Temp Pulse Resp BP Pulse Ox 98.0 F 88 16 176/81 H 91 L 03/06/18 12:00 03/06/18 14:00 03/06/18 12:00 03/06/18 12:00 03/06/18 09:00 Intake and Output: 03/06/18 03/06/18 06:59 18:59 Intake Total 1900 Output Total 0 Balance 1900 - Medications Medications: Current Medications Acetaminophen (Tylenol 325mg Tab) 650 mg PO Q4H PRN PRN Reason: Pain, Mild (1-3) Last Admin: 03/04/18 11:25 Dose: 650 mg Acetaminophen (Tylenol 325mg Tab) 650 mg PO Q4H PRN PRN Reason: Fever >100.5 F Last Admin: 02/25/18 06:11 Dose: 650 mg Albuterol/Ipratropium (Duoneb 3 Mg/0.5 Mg (3 Ml) Ud) 3 ml IH Q2 PRN PRN Reason: Shortness of Breath Last Admin: 03/06/18 05:53 Dose: 3 ml Arformoterol Tartrate (Brovana) 15 mcg IH [id number] [facility] Last Admin: 03/06/18 08:04 Dose: 15 mcg Aspirin (Ecotrin) 81 mg PO DAILY [facility] Last Admin: 03/06/18 11:46 Dose: 81 mg Budesonide (Pulmicort Respules) 0.25 mg IH [id number] [facility] Last Admin: 03/06/18 08:05 Dose: 0.25 mg Diltiazem HCl (Cardizem Cd) 180 mg PO DAILY [facility] Last Admin: 03/06/18 11:46 Dose: 180 mg Ferrous Sulfate (Feosol Liq) 300 mg PO BID [facility] Last Admin: 03/06/18 11:45 Dose: 300 mg Furosemide (Lasix) 20 mg IVP DAILY [facility] Last Admin: 03/06/18 11:46 Dose: 20 mg Hydralazine HCl (Apresoline) 10 mg PO DAILY PRN PRN Reason: Systolic Blood Pressure >170 Last Admin: 03/04/18 06:55 Dose: 10 mg Daptomycin 380 mg/ Sodium (Chloride) 100 mls @ 200 mls/hr IV QOTHERDAY [facility] Stop: 04/04/18 10:01 Last Admin: 03/05/18 14:31 Dose: 200 mls/hr Isosorbide Mononitrate (Imdur Er) 30 mg PO DAILY [facility] Last Admin: 03/06/18 11:45 Dose: 30 mg Levothyroxine Sodium (Synthroid) 25 mcg PO 0600 [facility] Last Admin: 03/06/18 05:46 Dose: 25 mcg Memantine (Namenda) 10 mg PO DAILY [facility] Last Admin: 03/06/18 11:45 Dose: 10 mg Montelukast Sodium (Singulair) 10 mg PO DAILY [facility] Last Admin: 03/06/18 11:45 Dose: 10 mg Nystatin (Nystatin Oral Susp) 5 ml PO QID [facility] Last Admin: 03/06/18 14:58 Dose: 5 ml Pantoprazole Sodium (Protonix Ec Tab) 20 mg PO 0600 [facility] Last Admin: 03/06/18 05:46 Dose: 20 mg Tamsulosin HCl (Flomax) 0.8 mg PO DAILY [facility] Last Admin: 03/06/18 11:45 Dose: 0.8 mg - Labs Labs: 03/06/18 04:50 03/06/18 04:50 PT 16.6 SECONDS (9.4-12.5) H 02/19/18 18:04 INR 1.45 02/19/18 18:04 APTT 25.0 Seconds (25.1-36.5) L 02/19/18 18:04 Assessment and Plan - Assessment and Plan (Free Text) Plan: Infectious diseases Attending Physician Attestation Patient seen and examined, discussed with senior medical billing specialist. I have reviewed the patient's history of present illness, past medical, social, personal and family histories, pertinent physical exam findings, course so far in this hospital admission, pertinent laboratory and imaging results. I agree with the above findings, assessment and plan. In addition, will continue Teflaro and Daptomycin for MRSA bacteremia with sepsis from TV endocarditis and infected pacemaker and leads. Awaiting removal of pacemaker and leads in another facility.
[2018-03-07] MEDS: Albuterol-Ipratrop 3 mg / 0.5 (3 ml) UD IH PRN (01:21)
--- NOTE | 2018-03-07 01:35 | PN ---
DATE: 03/06/2018 SUBJECTIVE: The patient is an 87-year-old male. The patient was seen and examined at the bedside on 03/06/2018, looking comfortable. No change in the status. No fever. No chills. No hematuria or hematochezia. No swelling of the legs. PHYSICAL EXAMINATION VITAL SIGNS: Temperature 98, pulse 79, respiratory rate 16, blood pressure 176/81, pulse oximetry 91. HEENT: Head: Normocephalic, atraumatic. Eyes: PERRLA. Extraocular muscles are intact. Conjunctivae clear. Nose patent. Mucous membranes moist. NECK: Supple. No carotid bruit. No JVD or thyromegaly. CHEST: Bilaterally symmetrical. HEART: S1 and S2, positive. LUNGS: Clear to auscultation. ABDOMEN: Soft. Bowel sounds present. No organomegaly. EXTREMITIES: No edema. No cyanosis. NEUROLOGICAL: The patient is awake and alert. Moving all 4 extremities. No focal deficit. MEDICATIONS: Tylenol, DuoNeb, Brovana, Ecotrin, Cardizem, iron sulfate, Lasix, hydralazine, daptomycin, Synthroid, Namenda, Singulair, nystatin, metoprolol, Flomax. LABORATORY DATA: White blood cells 6.4, hemoglobin 8.1, hematocrit 27.1, platelets 164. Sodium 150, potassium 4.3, BUN 34, creatinine 2.4, glucose 99. ASSESSMENT AND PLAN: Mr. Faraz Zuñiga is an 87-year-old male with anemia; hypernatremia; renal insufficiency; has severe sepsis with methicillin-resistant Staphylococcus aureus bacteremia, likely secondary to pacemaker and lead infection and associated tricuspid valve endocarditis; chronic obstructive pulmonary disease; dyslipidemia; coronary artery bypass graft with ishemic cardiomyopathy; history of pacemaker placement; hypertension; pulmonary hypertension. Continue daptomycin and Teflaro for methicillin-resistant Staphylococcus aureus bacteremia. Blood cultures are negative for 72 hours. CK level within normal limits. Bladder ultrasound is done. The patient is requiring removal of the pacemaker and lead wire, Cardiology. Continue present treatment. Discussion done with nurse practitioner, as per NAZ Tabaresthe patient will be transferred tomorrow to [facility] for the removal of the pacemaker. Meanwhile continue present treatment. We will repeat labs. We will follow up. Irasema Rivas MD [facility]
[2018-03-07] MEDS: Levothyroxine 25 MCG TAB PO SCH (05:50)
--- NOTE | 2018-03-07 07:49 | CP.PCM.PN ---
Subjective - Date & Time of Evaluation Date of Evaluation: 03/07/18 Time of Evaluation: 06:40 - Subjective Subjective: Upright in bed, awake, alert , asking for water, on contact isolation Reason for consultation and follow up:Cardiac evaluation of CHF and coronary artery disease, recurrent bacteremia, infected PPM/AICD Seen and examined by me and Objective - Vital Signs/Intake and Output Vital Signs (last 24 hours): Temp Pulse Resp BP Pulse Ox 97 F L 75 18 126/55 L 97 03/07/18 07:14 03/07/18 07:14 03/07/18 07:14 03/07/18 07:14 03/07/18 07:14 Intake and Output: 03/07/18 03/07/18 06:59 18:59 Intake Total 120 Balance 120 - Medications Medications: Current Medications Acetaminophen (Tylenol 325mg Tab) 650 mg PO Q4H PRN PRN Reason: Pain, Mild (1-3) Last Admin: 03/04/18 11:25 Dose: 650 mg Acetaminophen (Tylenol 325mg Tab) 650 mg PO Q4H PRN PRN Reason: Fever >100.5 F Last Admin: 02/25/18 06:11 Dose: 650 mg Albuterol/Ipratropium (Duoneb 3 Mg/0.5 Mg (3 Ml) Ud) 3 ml IH Q2 PRN PRN Reason: Shortness of Breath Last Admin: 03/07/18 01:21 Dose: 3 ml Arformoterol Tartrate (Brovana) 15 mcg IH [id number] [facility] Last Admin: 03/06/18 20:08 Dose: 15 mcg Aspirin (Ecotrin) 81 mg PO DAILY [facility] Last Admin: 03/06/18 11:46 Dose: 81 mg Budesonide (Pulmicort Respules) 0.25 mg IH [id number] [facility] Last Admin: 03/06/18 20:08 Dose: 0.25 mg Diltiazem HCl (Cardizem Cd) 180 mg PO DAILY [facility] Last Admin: 03/06/18 11:46 Dose: 180 mg Ferrous Sulfate (Feosol Liq) 300 mg PO BID [facility] Last Admin: 03/06/18 18:37 Dose: 300 mg Furosemide (Lasix) 20 mg IVP DAILY [facility] Last Admin: 03/06/18 11:46 Dose: 20 mg Hydralazine HCl (Apresoline) 10 mg PO DAILY PRN PRN Reason: Systolic Blood Pressure >170 Last Admin: 03/04/18 06:55 Dose: 10 mg Daptomycin 380 mg/ Sodium (Chloride) 100 mls @ 200 mls/hr IV QOTHERDAY [facility] Stop: 04/04/18 10:01 Last Admin: 03/05/18 14:31 Dose: 200 mls/hr Isosorbide Mononitrate (Imdur Er) 30 mg PO DAILY [facility] Last Admin: 03/06/18 11:45 Dose: 30 mg Levothyroxine Sodium (Synthroid) 25 mcg PO 0600 [facility] Last Admin: 03/07/18 05:50 Dose: 25 mcg Memantine (Namenda) 10 mg PO DAILY [facility] Last Admin: 03/06/18 11:45 Dose: 10 mg Montelukast Sodium (Singulair) 10 mg PO DAILY [facility] Last Admin: 03/06/18 11:45 Dose: 10 mg Nystatin (Nystatin Oral Susp) 5 ml PO QID [facility] Last Admin: 03/06/18 22:59 Dose: 5 ml Pantoprazole Sodium (Protonix Ec Tab) 20 mg PO 0600 [facility] Last Admin: 03/06/18 05:46 Dose: 20 mg Tamsulosin HCl (Flomax) 0.8 mg PO DAILY [facility] Last Admin: 03/06/18 11:45 Dose: 0.8 mg - Labs Labs: 03/06/18 04:50 03/06/18 04:50 PT 16.6 SECONDS (9.4-12.5) H 02/19/18 18:04 INR 1.45 02/19/18 18:04 APTT 25.0 Seconds (25.1-36.5) L 02/19/18 18:04 - Constitutional Appears: Non-toxic, No Acute Distress - Head Exam Head Exam: NORMAL INSPECTION, NORMOCEPHALIC - Eye Exam Eye Exam: Normal appearance Pupil Exam: NORMAL ACCOMODATION - ENT Exam ENT Exam: Mucous Membranes Dry - Respiratory Exam Respiratory Exam: Decreased Breath Sounds, NORMAL BREATHING PATTERN - Cardiovascular Exam Cardiovascular Exam: +S1, +S2 Additional comments: PPM/AICD - GI/Abdominal Exam GI & Abdominal Exam: Soft, Normal Bowel Sounds - Extremities Exam Extremities Exam: Full ROM, Normal Capillary Refill - Neurological Exam Neurological Exam: Alert, Awake - Psychiatric Exam Psychiatric exam: Normal Affect, Normal Mood - Skin Skin Exam: Dry, Normal Color, Warm Assessment and Plan - Assessment and Plan (Free Text) Assessment: An 87 year old male who came from [facility] due to altered mental status, chest pain and shortness of breath. History of GI bleed, anemia, chronic renal failure, coronary artery disease post CABG, Afib and COPD, systolic dysfunction CHF. Elevated troponin 0.29/0.28. Echo done 01/22/18 LVEF 15-25%, Trace AR/MR, moderate TR RVSP 75 mmHg,moderate to severe pulmonary hypertension. Will treat medically for now for elevated troponin. No cardiac catheterization for now due to renal insufficiency. Denies chest pain now. ANDRE was not done from previous admission due to severe dementia and agitation due to risk of perforation. Consult was called again to evaluate and possible ANDRE to rule out endocarditis due to recurrent bacteremia. 02/25/18 Repeat echo done, showed echogenic mobile structure attached to tricuspid valve consistent with vegetation tricuspid valve endocarditis. Dr. Pena consulted for removal of AICD. For laser lead extraction and transfer to [facility], son agreed for procedure.Seen by Urology.Awaiting transfer to [facility].Possible transfer today/. Plan: Possible transfer to [facility] today No distress, on isolation precaution Denies chest pain Heart rate stable Blood pressure stable Bacteremia, ID on consult Continue antibiotics as per ID On ASA 81 mg daily, Cardizem 180 mg daily, Lasix 40 mg daily, Imdur ER 30 mg daily,Synthroid 25 mcg daily,Flomax 0.8 mg daily Continue current medications Continue current treatment Nutritional support Will follow up Plan and treatment discussed with Dr. Woodward
[2018-03-07] MEDS: Arformoterol 15 mcg/2 ml Inh Sol IH SCH ×2 (08:00→20:41)
[2018-03-07] MEDS: Budesonide 0.25 mg/2 ml Inhal Susp UD IH SCH ×2 (08:00→20:41)
[2018-03-07] MEDS: Pantoprazole 20 mg EC Tab PO SCH (08:23)
[2018-03-07] MEDS ORDERED: DAPTOmycin 500 mg Inj (Cubicin) IV SCH (10:00)
--- NOTE | 2018-03-07 10:13 | CP.PCM.APN ---
Subjective - Date & Time of Evaluation Date of Evaluation: 03/07/18 Time of Evaluation: 09:30 - Subjective Subjective: pt seen in bed , nad Review of Systems - Constitutional Constitutional: Lethargy Objective - Vital Signs/Intake and Output Vital Signs (last 24 hours): Temp Pulse Resp BP Pulse Ox 97 F L 75 18 126/55 L 97 03/07/18 07:14 03/07/18 07:14 03/07/18 07:14 03/07/18 07:14 03/07/18 07:14 Intake and Output: 03/07/18 03/07/18 06:59 18:59 Intake Total 120 Balance 120 - Medications Medications: Current Medications Acetaminophen (Tylenol 325mg Tab) 650 mg PO Q4H PRN PRN Reason: Pain, Mild (1-3) Last Admin: 03/04/18 11:25 Dose: 650 mg Acetaminophen (Tylenol 325mg Tab) 650 mg PO Q4H PRN PRN Reason: Fever >100.5 F Last Admin: 02/25/18 06:11 Dose: 650 mg Albuterol/Ipratropium (Duoneb 3 Mg/0.5 Mg (3 Ml) Ud) 3 ml IH Q2 PRN PRN Reason: Shortness of Breath Last Admin: 03/07/18 01:21 Dose: 3 ml Arformoterol Tartrate (Brovana) 15 mcg IH [id number] [facility] Last Admin: 03/07/18 08:00 Dose: 15 mcg Aspirin (Ecotrin) 81 mg PO DAILY [facility] Last Admin: 03/06/18 11:46 Dose: 81 mg Budesonide (Pulmicort Respules) 0.25 mg IH [id number] [facility] Last Admin: 03/07/18 08:00 Dose: 0.25 mg Diltiazem HCl (Cardizem Cd) 180 mg PO DAILY [facility] Last Admin: 03/06/18 11:46 Dose: 180 mg Ferrous Sulfate (Feosol Liq) 300 mg PO BID [facility] Last Admin: 03/06/18 18:37 Dose: 300 mg Furosemide (Lasix) 20 mg IVP DAILY [facility] Last Admin: 03/06/18 11:46 Dose: 20 mg Hydralazine HCl (Apresoline) 10 mg PO DAILY PRN PRN Reason: Systolic Blood Pressure >170 Last Admin: 03/04/18 06:55 Dose: 10 mg Daptomycin 380 mg/ Sodium (Chloride) 100 mls @ 200 mls/hr IV QOTHERDAY [facility] Stop: 04/04/18 10:01 Last Admin: 03/05/18 14:31 Dose: 200 mls/hr Isosorbide Mononitrate (Imdur Er) 30 mg PO DAILY [facility] Last Admin: 03/06/18 11:45 Dose: 30 mg Levothyroxine Sodium (Synthroid) 25 mcg PO 0600 [facility] Last Admin: 03/07/18 05:50 Dose: 25 mcg Memantine (Namenda) 10 mg PO DAILY [facility] Last Admin: 03/06/18 11:45 Dose: 10 mg Montelukast Sodium (Singulair) 10 mg PO DAILY [facility] Last Admin: 03/06/18 11:45 Dose: 10 mg Nystatin (Nystatin Oral Susp) 5 ml PO QID [facility] Last Admin: 03/06/18 22:59 Dose: 5 ml Pantoprazole Sodium (Protonix Ec Tab) 20 mg PO 0600 [facility] Last Admin: 03/07/18 08:23 Dose: Not Given Tamsulosin HCl (Flomax) 0.8 mg PO DAILY [facility] Last Admin: 03/06/18 11:45 Dose: 0.8 mg - Labs Labs: 03/06/18 04:50 03/06/18 04:50 PT 16.6 SECONDS (9.4-12.5) H 02/19/18 18:04 INR 1.45 02/19/18 18:04 APTT 25.0 Seconds (25.1-36.5) L 02/19/18 18:04 - Constitutional Appears: No Acute Distress, Older Than Stated Age, Chronically Ill - Eye Exam Eye Exam: PERRL - ENT Exam ENT Exam: Mucous Membranes Moist - Respiratory Exam Respiratory Exam: Decreased Breath Sounds - Cardiovascular Exam Cardiovascular Exam: +S1, +S2 - GI/Abdominal Exam GI & Abdominal Exam: Soft, Normal Bowel Sounds - Neurological Exam Neurological Exam: Alert, Awake - Skin Skin Exam: Dry, Intact Assessment and Plan - Assessment and Plan (Free Text) Plan: Microbiology 03/02/18 13:45 Blood-Venous Blood Culture - Preliminary NO GROWTH AFTER 4 DAYS 03/02/18 13:15 Blood-Venous Blood Culture - Preliminary NO GROWTH AFTER 4 DAYS 02/26/18 10:50 Blood-Venous Blood Culture - Final Methicillin Resistant S Aureus 02/26/18 10:50 Blood-Venous Gram Stain - Final 02/26/18 11:30 Blood-Venous S.aureus & Coag-Neg Staph PNA FISH - Final 02/26/18 11:30 Blood-Venous Blood Culture - Preliminary Gram Positive Cocci 02/26/18 11:30 Blood-Venous Gram Stain - Final 02/25/18 09:50 Blood-Venous S.aureus & Coag-Neg Staph PNA FISH - Final 02/25/18 09:50 Blood-Venous Blood Culture - Final Methicillin Resistant S Aureus 02/25/18 09:50 Blood-Venous Gram Stain - Final 02/25/18 09:25 Blood-Venous Blood Culture - Final Methicillin Resistant S Aureus 02/25/18 09:25 Blood-Venous Gram Stain - Final 02/23/18 21:45 Blood Blood Culture - Final Methicillin Resistant S Aureus 02/23/18 21:45 Blood Gram Stain - Final 02/23/18 21:30 Blood S.aureus & Coag-Neg Staph PNA FISH - Final 02/23/18 21:30 Blood Blood Culture - Final Methicillin Resistant S Aureus 02/23/18 21:30 Blood Gram Stain - Final 02/21/18 20:56 Blood Blood Culture - Final Methicillin Resistant S Aureus 02/21/18 20:56 Blood Gram Stain - Final 02/21/18 20:56 Blood Blood Culture - Final Methicillin Resistant S Aureus 02/21/18 20:56 Blood Gram Stain - Final 02/19/18 18:20 Blood Blood Culture - Final Methicillin Resistant S Aureus 02/19/18 18:20 Blood Gram Stain - Final 02/19/18 18:04 Blood S.aureus & Coag-Neg Staph PNA FISH - Final 02/19/18 18:04 Blood Blood Culture - Final Methicillin Resistant S Aureus 02/19/18 18:04 Blood Gram Stain - Final 02/19/18 21:47 Throat Group A Strep Throat Culture - Final NO BETA STREP GROUP A ISOLATED. 02/19/18 19:00 Urine,Clean Catch Urine Culture - Final No Growth (<1,000 CFU/ML) No Known Allergies Allergy (Verified 04/11/17 19:07) All Active Problems Pneumonia (Acute) Sepsis (Acute) UZAIR (acute kidney injury) (Acute) Ankle sprain (Acute) Arrhythmia (Acute) CHF (congestive heart failure) (Acute) CHF (congestive heart failure) (Acute) Congestive heart failure (Acute) Elevated CEA (Acute) Elevated troponin (Acute) Gastritis and duodenitis (Acute) Hemorrhoids (Acute) Leukocytosis (Acute) Prophylactic measure (Acute) Rectal pain (Acute) SOB (shortness of breath) (Acute) UTI (urinary tract infection) (Acute) Urinary obstruction (Acute) Anemia (Chronic) CRF (chronic renal failure) (Chronic) Dilated cardiomyopathy (Chronic) GI bleed (Chronic) HTN (hypertension) (Chronic) Renal insufficiency (Chronic) A/P 87 yr old with pmh sig for chf, gi bleed, anemia, CRF, Afib, Copd, CABG/ AICD, hx MRSA bacteremai and e Coli UTI who was transferred from [facility] at [facility] for lethargy, ams, sob and cp now undergoing workup for sepsis / pneumonia with ID consult on IV Daptomycin and Merrem with ID workup in progress including panculture that have all grown MRSA pt son Shola agreed to have pt transfer to [facility] for ppm laser lead removal, pt [facility] for ppp lead removal BC noted negative after 4 days on 03/02 per discusssion with ID Dr Lubin, pt will need iV dapto q 48 hrs for 6 weeks after removal of ppm as standard of care. info relayed to cm will followup on transfer status to [facility] , spoke to Dr Rivas re: Plan of care
[2018-03-07] MEDS: diltiaZEM 180 mg/24 Hours CD Cap PO SCH (10:49)
[2018-03-07] MEDS: Ferrous Sulfate 300 mg/5 mL Liq UD PO SCH ×3 (10:50→17:50)
[2018-03-07] MEDS: Nystatin 100,000 Units/ml Oral Susp 5 ml UD PO SCH ×5 (10:50→21:26)
--- NOTE | 2018-03-07 12:59 | PN ---
DATE: 03/07/2018 REASON FOR CONSULTATION AND FOLLOWUP: Cardiac evaluation, history of CHF, recurrent bacteremia, AICD. BRIEF CLINICAL HISTORY: This is an 87-year-old male with history of coronary artery disease, CABG, ischemic cardiomyopathy, severely decreased LV function, AICD, persistent bacteremia, tricuspid valve endocarditis, being evaluated for laser removal of AICD. Awaiting for the bed at [facility] for possible transfer today. In the interim, continue Lasix, continue Cardizem, continue Synthroid, continue Flomax, continue antibiotic as per ID. Upon availability of the bed, the patient to be transferred to [facility]. Overall, the patient's condition is critical, long-term prognosis is guarded. We will follow with you. Thank you Dr. Rivas for providing us the opportunity in taking care of the patient, Faraz Zuñiga. Radha Woodward MD
--- NOTE | 2018-03-07 14:19 | CP.PCM.PN ---
<Marko Galdamez - Last Filed: 03/07/18 14:16> Subjective - Date & Time of Evaluation Date of Evaluation: 03/07/18 Time of Evaluation: 10:15 - Subjective Subjective: ID progress note Patient seen at bedside. Patient states he does not feel well. Patient denies chest pain, shortness of breath, nausea, vomiting, diarrhea, fever, chills. Objective - Vital Signs/Intake and Output Vital Signs (last 24 hours): Temp Pulse Resp BP Pulse Ox 97.9 F 88 18 158/82 H 97 03/07/18 12:00 03/07/18 12:00 03/07/18 12:00 03/07/18 12:00 03/07/18 07:14 Intake and Output: 03/07/18 03/07/18 06:59 18:59 Intake Total 120 Balance 120 - Medications Medications: Current Medications Acetaminophen (Tylenol 325mg Tab) 650 mg PO Q4H PRN PRN Reason: Pain, Mild (1-3) Last Admin: 03/04/18 11:25 Dose: 650 mg Acetaminophen (Tylenol 325mg Tab) 650 mg PO Q4H PRN PRN Reason: Fever >100.5 F Last Admin: 02/25/18 06:11 Dose: 650 mg Albuterol/Ipratropium (Duoneb 3 Mg/0.5 Mg (3 Ml) Ud) 3 ml IH Q2 PRN PRN Reason: Shortness of Breath Last Admin: 03/07/18 01:21 Dose: 3 ml Arformoterol Tartrate (Brovana) 15 mcg IH [id number] [facility] Last Admin: 03/07/18 08:00 Dose: 15 mcg Aspirin (Ecotrin) 81 mg PO DAILY [facility] Last Admin: 03/07/18 10:50 Dose: 81 mg Budesonide (Pulmicort Respules) 0.25 mg IH [id number] [facility] Last Admin: 03/07/18 08:00 Dose: 0.25 mg Diltiazem HCl (Cardizem Cd) 180 mg PO DAILY [facility] Last Admin: 03/07/18 10:49 Dose: 180 mg Ferrous Sulfate (Feosol Liq) 300 mg PO BID [facility] Last Admin: 03/07/18 10:50 Dose: 300 mg Furosemide (Lasix) 20 mg IVP DAILY [facility] Last Admin: 03/07/18 10:51 Dose: 20 mg Hydralazine HCl (Apresoline) 10 mg PO DAILY PRN PRN Reason: Systolic Blood Pressure >170 Last Admin: 03/04/18 06:55 Dose: 10 mg Daptomycin 380 mg/ Sodium (Chloride) 100 mls @ 200 mls/hr IV QOTHERDAY [facility] Stop: 04/04/18 10:01 Last Admin: 03/07/18 11:12 Dose: 200 mls/hr Isosorbide Mononitrate (Imdur Er) 30 mg PO DAILY [facility] Last Admin: 03/07/18 10:51 Dose: 30 mg Levothyroxine Sodium (Synthroid) 25 mcg PO 0600 [facility] Last Admin: 03/07/18 05:50 Dose: 25 mcg Memantine (Namenda) 10 mg PO DAILY [facility] Last Admin: 03/07/18 10:51 Dose: 10 mg Montelukast Sodium (Singulair) 10 mg PO DAILY [facility] Last Admin: 03/07/18 10:51 Dose: 10 mg Nystatin (Nystatin Oral Susp) 5 ml PO QID [facility] Last Admin: 03/06/18 22:59 Dose: 5 ml Pantoprazole Sodium (Protonix Ec Tab) 20 mg PO 0600 [facility] Last Admin: 03/07/18 08:23 Dose: Not Given Tamsulosin HCl (Flomax) 0.8 mg PO DAILY [facility] Last Admin: 03/07/18 10:51 Dose: 0.8 mg - Labs Labs: 03/06/18 04:50 03/06/18 04:50 PT 16.6 SECONDS (9.4-12.5) H 02/19/18 18:04 INR 1.45 02/19/18 18:04 APTT 25.0 Seconds (25.1-36.5) L 02/19/18 18:04 - Constitutional Appears: Non-toxic, No Acute Distress - Head Exam Head Exam: ATRAUMATIC, NORMAL INSPECTION, NORMOCEPHALIC - ENT Exam ENT Exam: Mucous Membranes Moist - Respiratory Exam Respiratory Exam: Clear to Ausculation Bilateral, NORMAL BREATHING PATTERN. absent: Rales, Rhonchi, Wheezes - Cardiovascular Exam Cardiovascular Exam: RRR, +S1, +S2 - GI/Abdominal Exam GI & Abdominal Exam: Soft, Normal Bowel Sounds. absent: Tenderness - Extremities Exam Extremities Exam: Normal Inspection. absent: Pedal Edema - Neurological Exam Neurological Exam: Alert, Awake, Oriented x3 - Psychiatric Exam Psychiatric exam: Normal Affect, Normal Mood - Skin Skin Exam: Intact, Normal Color, Warm Assessment and Plan - Assessment and Plan (Free Text) Plan: Severe sepsis from MRSA bacteremia likely secondary to pacemaker/lead infection and associated tricuspid valve endocardititis Hx of MRSA bacteremia from 12/30/17 Iron deficiency anemia Hx of COPD Hx of dyslipidemia Hx of CABG with ischemic cardiomyopathy Hx of pacemaker placement Hx of HTN Hx of pulm HTN Plan Continue Daptomycin and Teflaro for MRSA bacteremia Blood cultures negative x 5 days Patient requires removal of pacemaker and leads via cardiology, may be transferred today for his procedure Continue to monitor closely Rudolph, PGY-3 <Eyad Lubin - Last Filed: 03/07/18 22:32> Objective - Vital Signs/Intake and Output Vital Signs (last 24 hours): Temp Pulse Resp BP Pulse Ox 98.3 F 73 18 167/65 H 97 03/07/18 17:57 03/07/18 18:00 03/07/18 17:57 03/07/18 17:57 03/07/18 07:14 Intake and Output: 03/07/18 03/08/18 18:59 06:59 Intake Total 100 180 Balance 100 180 - Medications Medications: Current Medications Acetaminophen (Tylenol 325mg Tab) 650 mg PO Q4H PRN PRN Reason: Pain, Mild (1-3) Last Admin: 03/04/18 11:25 Dose: 650 mg Acetaminophen (Tylenol 325mg Tab) 650 mg PO Q4H PRN PRN Reason: Fever >100.5 F Last Admin: 02/25/18 06:11 Dose: 650 mg Albuterol/Ipratropium (Duoneb 3 Mg/0.5 Mg (3 Ml) Ud) 3 ml IH Q2 PRN PRN Reason: Shortness of Breath Last Admin: 03/07/18 01:21 Dose: 3 ml Arformoterol Tartrate (Brovana) 15 mcg IH [id number] [facility] Last Admin: 03/07/18 20:41 Dose: 15 mcg Aspirin (Ecotrin) 81 mg PO DAILY [facility] Last Admin: 03/07/18 10:50 Dose: 81 mg Budesonide (Pulmicort Respules) 0.25 mg IH [id number] [facility] Last Admin: 03/07/18 20:41 Dose: 0.25 mg Diltiazem HCl (Cardizem Cd) 180 mg PO DAILY [facility] Last Admin: 03/07/18 10:49 Dose: 180 mg Ferrous Sulfate (Feosol Liq) 300 mg PO BID [facility] Last Admin: 03/07/18 17:50 Dose: Not Given Furosemide (Lasix) 20 mg IVP DAILY [facility] Last Admin: 03/07/18 10:51 Dose: 20 mg Hydralazine HCl (Apresoline) 10 mg PO DAILY PRN PRN Reason: Systolic Blood Pressure >170 Last Admin: 03/04/18 06:55 Dose: 10 mg Daptomycin 380 mg/ Sodium (Chloride) 100 mls @ 200 mls/hr IV QOTHERDAY [facility] Stop: 04/04/18 10:01 Last Admin: 03/07/18 11:12 Dose: 200 mls/hr Isosorbide Mononitrate (Imdur Er) 30 mg PO DAILY [facility] Last Admin: 03/07/18 10:51 Dose: 30 mg Levothyroxine Sodium (Synthroid) 25 mcg PO 0600 [facility] Last Admin: 03/07/18 05:50 Dose: 25 mcg Memantine (Namenda) 10 mg PO DAILY [facility] Last Admin: 03/07/18 10:51 Dose: 10 mg Montelukast Sodium (Singulair) 10 mg PO DAILY [facility] Last Admin: 03/07/18 10:51 Dose: 10 mg Nystatin (Nystatin Oral Susp) 5 ml PO QID [facility] Last Admin: 03/07/18 21:26 Dose: 5 ml Pantoprazole Sodium (Protonix Ec Tab) 20 mg PO 0600 [facility] Last Admin: 03/07/18 08:23 Dose: Not Given Tamsulosin HCl (Flomax) 0.8 mg PO DAILY [facility] Last Admin: 03/07/18 10:51 Dose: 0.8 mg - Labs Labs: 03/06/18 04:50 03/06/18 04:50 PT 16.6 SECONDS (9.4-12.5) H 02/19/18 18:04 INR 1.45 02/19/18 18:04 APTT 25.0 Seconds (25.1-36.5) L 02/19/18 18:04 Assessment and Plan - Assessment and Plan (Free Text) Plan: Infectious diseases Attending Physician Attestation Patient seen and examined, discussed with medical records coder. I have reviewed the patient's history of present illness, past medical, social, personal and family histories, pertinent physical exam findings, course so far in this hospital admission, pertinent laboratory and imaging results. I agree with the above findings, assessment and plan. In addition, continue Teflaro and Daptomycin for severe sepsis from persistent MRSA bacteremia with pacemaker and lead infection and trticuspid valve endocarditis. Patient is to be transferred to another facility for removal of pacemaker and leads. Afterwards, will need to continue 4-6 weeks of IV antibiotics from time of removal of pacemaker.
[2018-03-08 00:11] VITALS: TEMP 97.9; O2SAT 92
[2018-03-08] MEDS: Albuterol-Ipratrop 3 mg / 0.5 (3 ml) UD IH PRN (01:15)
--- NOTE | 2018-03-08 03:07 | PN ---
DATE: 03/07/2018 SUBJECTIVE: The patient was seen and examined at bedside on 03/07/2018, looking comfortable; no big change in the status. No fever. No chills. No hematuria or hematochezia. No swelling of the legs. No chest pain. No palpitation. No headache or dizziness. PHYSICAL EXAMINATION: VITAL SIGNS: Temperature 97.9, pulse 80, respiratory rate 18, blood pressure 158/82, pulse oximetry 97%. HEENT: Head is normocephalic, atraumatic. Eyes: PERRLA. Extraocular muscles are intact. Conjunctivae clear. Nose patent. Mucous membranes moist. NECK: Supple. No carotid bruit. No JVD or thyromegaly. CHEST: Bilaterally symmetrical. HEART: S1 and S2 positive. LUNGS: Clear to auscultation. ABDOMEN: Soft. Bowel sounds positive. No organomegaly. EXTREMITIES: No edema. No cyanosis. NEUROLOGIC: The patient is awake, alert, not able to follows commands. MEDICATIONS: Tylenol, albuterol, Brovana, Pulmicort, Cardizem, Lasix, hydralazine, daptomycin, levothyroxine, nystatin, pantoprazole, tamsulosin. LABORATORY DATA: White blood cell 6.4, hemoglobin 8.1, hematocrit 27.1, platelet 164. Sodium 150, potassium 4.3, BUN 34, creatinine 2.4, glucose 99. ASSESSMENT AND PLAN: Mr. Faraz Zuñiga is an 87-year-old male with anemia; hypernatremia; hyperchloremia; renal insufficiency; has severe sepsis from methicillin-resistant Staphylococcus aureus bacteremia likely secondary to pacemaker/lead infection and associated tricuspid valve endocarditis; iron-deficiency anemia; chronic obstructive pulmonary disease; dyslipidemia; coronary artery bypass graft with ischemic cardiomyopathy; pacemaker placement; hypertension; pulmonary hypertension. Continue daptomycin and Teflaro for methicillin-resistant Staphylococcus aureus bacteremia. Blood culture negative for five days. The patient requires removal of pacemaker and the lead by Cardiology. The patient should be transferred to [facility] meanwhile continue briefing. Today, I spoke to [facility]. According to them they are on the divert list , but as soon as they will get bed , they will take our patient. Discussion done with nurse practitionerRaysa. Meanwhile, continue present treatment. Repeat labs. We will follow up. Irasema Rivas MD [facility] # [id number] [place]
[2018-03-08] MEDS: Pantoprazole 20 mg EC Tab PO SCH (05:16)
[2018-03-08] MEDS: Levothyroxine 25 MCG TAB PO SCH (05:16)
[2018-03-08 05:51] VITALS: PULSE 70; RESP 92
[2018-03-08 05:52] VITALS: BP 155/62
--- NOTE | 2018-03-08 07:38 | US ---
Date of service: 03/07/2018 PROCEDURE: Ultrasound examination of the bladder HISTORY: Evaluate postvoid residual/retention urine in the bladder COMPARISON: Comparison is made with the previous study dated 03/05/2018 TECHNIQUE: Ultrasound examination of the bladder and prostate was performed. FINDINGS: The bladder measures in the prevoid images 7 0.7 x 5.7 x 6.7 with a total volume of 206.02 mL. The bladder measures in the postvoid images 4 0.5 x 3.9 x 4.44 centimeter with a total volume of 40.77 mL. [id number] diffuse urinary bladder wall thickening is again noted. The prostate is heterogeneous contains foci of calcification measures 3.96 centimeter in the longitudinal 3.77 centimeter in the height and 4.62 centimeter in the width with a total volume of 36.14 mL. IMPRESSION: The calculated postvoid residual in the current study is 40.77 mL. Heterogeneous mildly enlarged prostate with a total volume of 36.1 mL.
[2018-03-08] MEDS: Arformoterol 15 mcg/2 ml Inh Sol IH SCH (08:02)
[2018-03-08] MEDS: Budesonide 0.25 mg/2 ml Inhal Susp UD IH SCH (08:03)
[2018-03-08 08:07] LABS: ALB/GLOB RATIO 0.6 (1.1-1.8); ALBUMIN 2.8 g/dL (3.0-4.8)
--- NOTE | 2018-03-08 08:09 | US ---
Date of service: 03/07/2018 HISTORY: left abd pouch COMPARISON: Comparison is made to the previous CT of the abdomen and pelvis without contrast dated 02/25/2018 previous ultrasound of the abdomen dated 01/19/2018 TECHNIQUE: Sonographic evaluation of the abdomen. FINDINGS: LIVER: Measures 15.1 x 10.9 cm. Heterogeneous increased echogenicity of the liver parenchyma. No mass. No intrahepatic bile duct dilatation. GALLBLADDER: Gallstones are noted. No CT evidence of acute cholecystitis. COMMON BILE DUCT: Measures 4 mm. No stones. No dilatation. PANCREAS: Unremarkable as visualized. No mass. No ductal dilatation. RIGHT KIDNEY: Measures 11.3 x 4.7 x 5.13cm. Echogenic kidneys without evidence of hydronephrosis. LEFT KIDNEY: Measures 9.1 x 5.7 x 5.26cm. Echogenic kidneys without evidence of hydronephrosis. There is a cyst in the left kidney measures 3 x 2.25 x 2.15 centimeter. SPLEEN: Normal in size and contour. No mass. AORTA: No aneurysmal dilatation. IVC: Unremarkable. OTHER FINDINGS: Bilateral small pleural effusions IMPRESSION: Heterogeneous mildly echogenic liver. Gallstones without ultrasound evidence of acute cholecystitis. Mildly echogenic kidneys. Correlate clinically for medical renal disease. Left renal cyst. Preliminary report was submitted by [facility] contains concordant findings.
--- NOTE | 2018-03-08 08:57 | PN ---
PULMONARY PROGRESS NOTE DATE: 03/07/2018 REFERRING PHYSICIAN: Irasema Rivas MD SUBJECTIVE: The patient is sitting up in bed, sleepy and tired. No acute distress. No overnight events reported. No hematuria, hemoptysis, hematosis, diarrhea or leg swelling reported. OBJECTIVE: GENERAL: No acute distress. VITAL SIGNS: Blood pressure 126/55, pulse 75, temperature 97, and oxygen saturation 97% on nasal cannula. HEENT: Moist mucous membranes. NECK: Supple. No JVD. RESPIRATORY: Diminished breath sounds at bases. Few rhonchi. CARDIOVASCULAR: S1 and S2, audible. ABDOMEN: Soft and nontender. No distention. No organomegaly. EXTREMITIES: No bilateral lower extremity edema. NEUROLOGIC: Awake and verbal. Follows simple commands. MEDICATIONS: Reviewed. Tylenol 650 mg every 4 hours p.r.n. for mild pain, Tylenol 650 mg every 4 hours p.r.n. for fever greater than 100.5, DuoNeb 3 mL inhalation every 2 hours p.r.n., Brovana 15 mcg inhalation every 12 hours, aspirin 81 mg daily, Pulmicort 0.25 mg inhalation every 12 hours, daptomycin mg every other day, Cardizem 180 mg daily, ferrous sulfate 300 mg twice a day, Lasix 20 mg IV push daily, hydralazine 10 mg p.o. daily p.r.n., isosorbide mononitrate 30 mg p.o. daily, Synthroid 25 mcg daily, Singulair 10 mg p.o. daily, nystatin 5 mL four times a day, Protonix 20 mL daily and Flomax 0.8 mg p.o. daily. LABORATORY DATA: Reviewed. No new labs. DIAGNOSTIC DATA: Chest x-ray shows there is a small patchy infiltrate in the right lower lobe, there is moderate vascular and interstitial congestion. IMPRESSION AND PLAN: Bacteremia, endocarditis, pleural effusion, chronic lung disease, paroxysmal atrial fibrillation, cardiomyopathy, pulmonary hypertension, cardiac diastolic dysfunction and systolic dysfunction, oropharyngeal dysphagia, hyperlipidemia, coronary artery disease, bladder outlet obstruction with benign prostatic hypertrophy requiring Mann catheter and anemia. The patient continues to wait for transferred to tertiary care center for discontinuation of automatic implantable cardioverter-defibrillator pacemaker. Continue antibiotic therapy per Infectious Disease, may need to consider covering gram-negative bacteria showed fever or leukocytosis occur. Will repeat chest x-ray in two to three days. We recommend the patient not be feed while lethargic, sleepy or tired. The patient should be sitting up when eating and remain sitting up with head of elevated for 1 hour or more after meals. Continue gastric prophylaxis, deep venous thrombosis prophylaxis and aspiration precaution, continue Cardiology followup. Continue to monitor electrolytes. This patient was seen and examined with Dr. Vail. Discussed assessment and plan as described above. Thank you for this consult and we will follow with you. Cornel Collins APN Radha Vail MD
--- NOTE | 2018-03-08 13:13 | PN ---
DATE: 03/08/2018 REASON FOR CONSULTATION: Followup, cardiac evaluation, history of CHF, recurrent bacteremia, tricuspid valve endocarditis, status post AICD, for removal of AICD. SUBJECTIVE: The patient denied any chest pain. Awake and alert, not in apparent distress. Scheduled for today for transfer. PHYSICAL EXAMINATION: VITAL SIGNS: Temperature afebrile. Heart rate 70, blood pressure 165/60. HEENT: PERRLA. Extraocular muscles are intact. NECK: Supple. No carotid bruit or thyromegaly. CHEST: Clear to auscultation. HEART: S1 and S2, regular. ABDOMEN: Soft. EXTREMITIES: Clubbing and cyanosis negative. LABORATORY DATA: Blood workup as follows: WBC 6.5, hemoglobin 8.1, hematocrit 27.1 as of 03/06/2018. Chemistry: Sodium 151, potassium 3.9, chloride 125, CO2 of 24, anion gap of 11, BUN 32 and creatinine 2.4. IMPRESSION: An 87-year-old male with past medical history significant for coronary artery disease, status post coronary artery bypass graft, history of cardiomyopathy, severely decreased LV ejection fraction 15% to 20%, status post automatic implantable cardioverter defibrillator, persistent bacteremia, tricuspid valve endocarditis, hypothyroidism, renal insufficiency, hypernatremia, benign prostatic hypertrophy. RECOMMENDATION: Continue broad spectrum antibiotics as per ID. The patient is scheduled to go for [facility]. Thank you Dr. Rivas for providing us the opportunity in taking care of patient, Faraz Zuñiga. Radha Woodward MD
== END 2018-03-08 09:30 | disposition short-term general hospital (02) | DRG 314 ==
LOC: ED 16:31 → ERH 21:34 → 2RSO 02-20 18:20
PROVIDERS: ADMIT Internal Medicine; ATTEND Internal Medicine
PROC: 30233N1 Transfusion of Nonautologous Red Blood Cells into Peripheral Vein, Percutaneous Approach (ICD-10-PCS; principal; 2018-02-27)
DX: T82.7XXA Infection and inflammatory reaction due to other cardiac and vascular devices, implants and grafts, initial encounter (principal); J18.9 Pneumonia, unspecified organism; A41.02 Sepsis due to Methicillin resistant Staphylococcus aureus; R65.20 Severe sepsis without septic shock; J44.0 Chronic obstructive pulmonary disease with (acute) lower respiratory infection; N39.0 Urinary tract infection, site not specified; I13.0 Hypertensive heart and chronic kidney disease with heart failure and stage 1 through stage 4 chronic kidney disease, or unspecified chronic kidney disease; I50.22 Chronic systolic (congestive) heart failure; I47.2 Ventricular tachycardia; E87.0 Hyperosmolality and hypernatremia; N13.8 Other obstructive and reflux uropathy; N40.1 Benign prostatic hyperplasia with lower urinary tract symptoms; E11.65 Type 2 diabetes mellitus with hyperglycemia; E11.22 Type 2 diabetes mellitus with diabetic chronic kidney disease; N18.9 Chronic kidney disease, unspecified; I08.1 Rheumatic disorders of both mitral and tricuspid valves; I27.20 Pulmonary hypertension, unspecified; I25.10 Atherosclerotic heart disease of native coronary artery without angina pectoris; F03.90 Unspecified dementia, unspecified severity, without behavioral disturbance, psychotic disturbance, mood disturbance, and anxiety; D69.6 Thrombocytopenia, unspecified; D63.1 Anemia in chronic kidney disease; D50.9 Iron deficiency anemia, unspecified; E03.9 Hypothyroidism, unspecified; F17.200 Nicotine dependence, unspecified, uncomplicated; I48.0 Paroxysmal atrial fibrillation; I25.5 Ischemic cardiomyopathy; K21.9 Gastro-esophageal reflux disease without esophagitis; E78.5 Hyperlipidemia, unspecified; R31.0 Gross hematuria; R13.12 Dysphagia, oropharyngeal phase; G47.30 Sleep apnea, unspecified; E78.00 Pure hypercholesterolemia, unspecified; K80.20 Calculus of gallbladder without cholecystitis without obstruction; Y83.1 Surgical operation with implant of artificial internal device as the cause of abnormal reaction of the patient, or of later complication, without mention of misadventure at the time of the procedure; Z79.82 Long term (current) use of aspirin; Z95.1 Presence of aortocoronary bypass graft; I25.2 Old myocardial infarction; Z95.5 Presence of coronary angioplasty implant and graft